=== PATIENT | male | born 1945 | race Caucasian/White ===

== ENCOUNTER 2017-09-02 12:59 | Day surgery (SDC) | payer MEDICARE, OTHER ==
[~2017-09-02 12:59] MED LIST: ASPI81TA82 PO; CAPT100T PO; CIPR1TAB50 PO; CLIN150 PO; CLON0.2T PO; CORE25TA PO; FURO1TAB93 PO; HYDR10TA16 PO; LEXA20TA PO; NEUR800T PO; NOVO7030P2 SQ; NOVO70IN2 SC; ZOCO10TA PO
[2017-09-02 13:29] VITALS: BP 106/46; PULSE 77; RESP 18; TEMP 98.1; O2SAT 93
[2017-09-02] MEDS ORDERED: APIX5TAB PO (13:50)
[2017-09-02] MEDS ORDERED: GABA600T PO (13:50)
[2017-09-02] MEDS ORDERED: FURO1TAB60 PO (13:50)
[2017-09-02] MEDS ORDERED: HYDR-3583 PO (13:50)
[2017-09-02] MEDS ORDERED: MORP1TAB24 PO (13:50)
[2017-09-02] MEDS ORDERED: SODIUM CHLORIDE 0.9% FLUSH 10 ML FLUSH IVF PRN ×2 (15:00)
--- NOTE | 2017-09-02 15:02 | PD.RAD ---
Radiology Post PICC Prog Note Pre Procedure Diagnosis: (1) UTI (urinary tract infection) Post Procedure Diagnosis: (1) UTI (urinary tract infection) Procedure: Right PICC line placement Procedure Date: Sep 02, 2017 Supervising Radiologist David Hoskins JR Proceduralist/Assist: Johnny Choi, RT(R), Don Hussein, RT(R) Device Side: Right [place]: 4 single lumen cm: 50 Catheter: Power PICC Plan of Activity Patient to Unit: [facility] Patient Condition: Good PICC line can be used immediately Jr. Hoskins Thomas Justin MD Sep 02, 2017 15:02
[2017-09-02] MEDS ORDERED: CEFEPIME 2000 MG/NS 100 ML IV ONE ×2 (15:30)
--- NOTE | 2017-09-02 16:05 | RADRPT ---
EXAM DATE: 09/02/2017 3:28 PM EDT AGE/SEX: 72 years / Male INDICATIONS: Patient presents with chronic urinary track infection in need of peripheral intravenous line placement for antibiotic administration. CLINICAL DATA: This is the patient's initial encounter. Patient reports that signs and symptoms have been present for 1 month and indicates a pain score of 9/10. MEDICAL/SURGICAL HISTORY: . Morbid obesityHTNCataractsDMFoot ulcerSleep apneaAnxietyAfibCarotid artery stenosisTIAPVDCKDMRSA HX . Bilateral foot surgeryTonsillectomyCardiac catheterizationSkin gr aft COMPARISON: No prior exams available for comparison. FLUORO TIME (min): 1.83 IMAGE SERIES: 3 ACCESS SITE: Right basilic vein DEVICE(S): 4 Wolof single lumen 50 cm . . PROCEDURE : 1. Ultrasound guidance for venous catheterization. 2. Fluoroscopic guidance. 3. Ultrasound & fluoroscopic guided central venous Power PICC line placement. The risks, benefits and alternatives to the procedure were explained and verbal and written consent w as obtained. The site was prepped in sterile fashion. Full sterile technique was used, including ca p, mask, sterile gloves and gown and a large sterile sheet. Hand hygiene and 2% chlorhexidine prep w as utilized per protocol for cutaneous antisepsis with appropriate dry time for site. Sterile gel a nd sterile probe cover were utilized for ultrasound guidance. The skin and subcutaneous tissues wer e infiltrated with local anesthetic solution. Under direct ultrasound guidance, a suitable vein was accessed and a measuring guidewire was introduc ed and positioned in the central venous system. The ultrasound images depicting access guidance were saved and stored to PACS for permanent record. A Power Injectable PICC line was cut to prescribed length and introduced, positioned with tip at the cavoatrial junction level. The line was flushed and secured per protocol. CONCLUSION: 1. Uncomplicated central venous Power PICC line placement. 2. The PICC line can be used immediately. Electronically signed by: David Hoskins MD 09/02/2017 4:03 PM EDT
[2017-09-03] MEDS ORDERED: SODIUM CHLORIDE 0.9% FLUSH 10 ML FLUSH IVF SCH (09:00)
== END 2017-09-02 15:45 | disposition home or self-care (01) ==
LOC: HROP 12:59 → HRIP 13:00 → HROP 15:45
PROVIDERS: ATTEND Family Medicine
DX: N39.0 Urinary tract infection, site not specified (principal); I48.91 Unspecified atrial fibrillation; G45.9 Transient cerebral ischemic attack, unspecified; I12.9 Hypertensive chronic kidney disease with stage 1 through stage 4 chronic kidney disease, or unspecified chronic kidney disease; E11.22 Type 2 diabetes mellitus with diabetic chronic kidney disease; N18.9 Chronic kidney disease, unspecified; G47.30 Sleep apnea, unspecified; E66.01 Morbid (severe) obesity due to excess calories; F41.9 Anxiety disorder, unspecified; L97.509 Non-pressure chronic ulcer of other part of unspecified foot with unspecified severity; I73.9 Peripheral vascular disease, unspecified; E78.5 Hyperlipidemia, unspecified; H40.9 Unspecified glaucoma; Z86.14 Personal history of Methicillin resistant Staphylococcus aureus infection
CPT/HCPCS: 36569; 76937; 77001; 96365; C1751; J0692

== ENCOUNTER 2018-02-26 10:36 | Inpatient (IN) ==
[~2018-02-26 10:36] MED LIST changes: -ASPI81TA82 PO; +Atropine Inj 1 MG/10 ML Syringe IV.PUSH ONE; -CAPT100T PO; -CIPR1TAB50 PO; -CLIN150 PO; -CLON0.2T PO; -CORE25TA PO; -FURO1TAB93 PO; -HYDR10TA16 PO; -LEXA20TA PO; -NEUR800T PO; -NOVO7030P2 SQ; -NOVO70IN2 SC; +Norepinephrine Inj 4 MG/4 ML Ampul IV.CONT ONE; +Sodium Bicarbonate 8.4% Inj 50 MEQ/50 ML Syringe IV.CONT ONE; -ZOCO10TA PO
--- NOTE | 2018-02-26 10:39 | ED ---
HPI General Chief complaint: Altered Mental Status Stated complaint: Medical Time Seen by Provider: 02/26/18 10:38 History of Present Illness HPI narrative: Patient is a 72-year-old male presents emergency department from [facility] and rehab for altered mental status since yesterday. EMS was called and found the patient have initial heart rate in the 30s with a blood pressure 120/60 manually, they give a half a milligram of atropine which brought his heart rate into the 40s and his blood pressure 96/72. His initial GCS on scene was 12, according to EMS the fpc reported that normally he is conversant and able to answer questions appropriately. Vision altered mental status on arrival, he does arouse and complaint of pain and we tried to lift his pain is for central line. He is unable to provide any of his other history. arrives and states that the patient has had a gradual decline in health, after lengthy discussion of his current condition she wishes him to remain Full code. Related Data Home Medications Medication Instructions Recorded Confirmed Lactobacillus acidophilus 1 tab PO BID 02/26/18 02/26/18 [Acidophilus] alfuzosin 10 mg PO DAILY 02/26/18 02/26/18 amino acids-protein hydrolys 30 ml PO DAILY 02/26/18 02/26/18 [Pro-Stat Sugar Free] amiodarone 200 mg PO DAILY 02/26/18 02/26/18 amlodipine 5 mg PO DAILY 02/26/18 02/26/18 ascorbic acid (vitamin C) [Vitamin 500 mg PO BID 02/26/18 02/26/18 C] atorvastatin 20 mg PO HS 02/26/18 02/26/18 bisacodyl [Dulcolax (bisacodyl)] 10 mg NJ DAILY PRN 02/26/18 02/26/18 duloxetine [Cymbalta] 20 mg PO DAILY 02/26/18 02/26/18 furosemide [Lasix] 20 mg PO BID 02/26/18 02/26/18 gabapentin 600 mg PO TID 02/26/18 02/26/18 insulin lispro [Humalog U-100 2 - 10 unit SUBCUT ACHS 02/26/18 02/26/18 Insulin] levothyroxine 50 mcg PO DAILY 02/26/18 02/26/18 magnesium hydroxide [Milk of 30 ml PO DIRECTED PRN 02/26/18 02/26/18 Magnesia] memantine [Namenda] 5 mg PO QPM 02/26/18 02/26/18 metoprolol tartrate 25 mg PO BID 02/26/18 02/26/18 morphine [MS Contin] 15 mg PO Q12H 02/26/18 02/26/18 multivitamin [Tab-A-Lucille] 1 tab PO DAILY 02/26/18 02/26/18 olmesartan 20 mg PO DAILY 02/26/18 02/26/18 ondansetron HCl [Zofran] 4 mg PO Q8H PRN 02/26/18 02/26/18 ondansetron [Zofran ODT] 4 mg PO Q6H PRN 02/26/18 02/26/18 rivaroxaban [Xarelto] 20 mg PO QPM 02/26/18 02/26/18 sennosides-docusate sodium 2 tab PO BID PRN 02/26/18 02/26/18 sodium phosphates [Fleet Enema] 118 ml NJ DIRECTED PRN 02/26/18 02/26/18 zinc sulfate 220 mg PO DAILY 02/26/18 02/26/18 Allergies Allergy/AdvReac Type Severity Reaction Status Date / Time daptomycin Allergy Severe Unverified 11/02/16 23:29 Sulfa (Sulfonamide Allergy Mild RASH Unverified 11/02/16 23:29 Antibiotics) Review of Systems ROS Unobtainable ROS Unobtainable: unobtainable due to mental condition PMFSH Social History Social History Recent Travel in [place] within the Last 8 Weeks: No Recent Out of Country Travel within the Last 8 Weeks: No Exam Narrative Exam Narrative: GENERAL: Well-developed well-nourished, morbidly obese SKIN: Focused skin assessment warm/dry. HEAD: Atraumatic. Normocephalic. EYES: Pupils equal and round. No scleral icterus. No injection or drainage. ENT: No nasal bleeding or discharge. Mucous membranes pink and moist. NECK: Trachea midline. No JVD. CARDIOVASCULAR: Regular rate and rhythm. No murmur appreciated. RESPIRATORY: Clear to auscultation, patient has irregular respiratory pattern and clearly has obstructive sleep apnea as when his mental status is waxing and waning he does have some periods where he is attempting to breathe with no air movement is visible. With some physical stimuli he arouses and starts breathing again. GASTROINTESTINAL: Abdomen soft, non-tender, nondistended. Hepatic and splenic margins not palpable. MUSCULOSKELETAL: No obvious deformities. No clubbing. No cyanosis. 2+ pitting edema of bilateral lower extremities. NEUROLOGICAL: Awake and alert, confused mental response. GCS [id number]. Follows commands in all 4 extremities. Waxing and waning mental status in the emergency department. PSYCHIATRIC: Appropriate mood and affect; insight and judgment normal. Procedures Arterial Line Time Out Performed: No Size (Gauge): 20 Technique Used: guide wire technique Post-Procedure: line sutured into place Patient Tolerated Procedure: well Complications: none Site: right and femoral Central Line Placement Right Femoral: Time Out Performed: No MD Prep: mask and gloves Central Line Prep: Chlorhexidine scrub Ultrasound Used for Placement: Yes Central Line Lumen Inserted: triple Post Procedure: sutured in place Patient Tolerated Procedure: well Complications: none Additional Comments: Patient was prepped hastily as the patient required emergent access and central blood pressure monitoring. Required significant pannus retraction by nursing. Course Initial Documented Vital Signs Temperature 98.4 F 02/26/18 10:41 Pulse Rate 39 L 02/26/18 10:41 Respiratory Rate 15 02/26/18 10:41 Blood Pressure 80/50 L 02/26/18 10:41 Pulse Oximetry 93 L 02/26/18 10:41 Last Documented Vital Signs Temperature 98.4 F 02/26/18 10:41 Pulse Rate 42 L 02/26/18 12:06 Respiratory Rate 16 02/26/18 12:06 Blood Pressure 89/45 L 02/26/18 12:06 Pulse Oximetry 97 02/26/18 12:06 Critical Care Time Critical Care Time: Yes Total Critical Care Time: 35 Attestation: Aggregate critical care time was 35 minutes. Time to perform other separately billable procedures was not included in the critical care time. My time did not include minutes spent treating any other patients simultaneously or on activities that did not directly contribute to the patient's treatment. The services I provided to this patient were to treat and/or prevent clinically significant deterioration that could result in: , disability, organ failure I provided critical care services requiring my management, as noted below: Chart data review, documentation time, medication orders and management, vital sign assessments/reviewing monitor data, ordering and reviewing lab tests, ordering and interpreting/reviewing x-rays and diagnostic studies, care of the patient and discussion of the patient with the admitting physicians. Medical Decision Making MDM Narrative Medical decision making narrative: Patient room to the emergency department, I have several EKGs on him prior to arrival, they all show bradycardia. He did receive 1/2 mg of atropine prior to arrival and his heart rate apparently went from the low 30s and 38. He was given another milligram of atropine on arrival as well as an amp of bicarb. My concern with 1 of these EKG shows a very wide complex bradycardia and I am concerned about the patient's potassium in light of his history of CKD. His last potassium was checked as an outpatient lab last month and was in excess of 5. He was given a calcium gluconate empirically 1 mg on arrival. VBG shows the patient acidosis with a pH of 7.2, this looks like the majority of her respiratory acidosis with some metabolic acidosis. Potassium is elevated to 7.0. Creatinine now 5.2 significant increase from his last creatinine as an outpatient. BUN of 70. Patient chest x-ray does not show any acute significant change from previous. Triple-lumen central line was started in the right femoral as well as an arterial line in the right femoral. Very difficult to obtain on invasive blood pressure on this patient. His initial blood pressures were in the 140s over 50s range. And therefore pacing was not started. During the course in the ER his blood pressure has started to decline and now map is in the 40s. He is started on levophed to maintain blood pressure and we will continue to monitor closely as the patient may need pacing. The atropine delivered in the emergency department really did not help his heart rate. After finding the patient's lab values additional calcium 2 g was ordered by central line, insulin, D50, albuterol by inhaler. His is at the bedside and I explained to the patient's kidneys are much weaker than they had been in the past as well as his liver enzymes being elevated as well. Given the 2 organs are failing him I have a high suspicion that the patient may also be septic. No obvious source of infection is yet been identified a CT scan of his abdomen pelvis has been ordered as well as a CT of his head and the patient's chronic indwelling Orozco will be changed out. Given the chronic indwelling Orozco is quite possible the patient does have urinary tract infection a gram of Rocephin was added as well. All the above was discussed with the patient's and discussed CODE STATUS and the patient is full code at this time. I explained to her that in the next 24-48 hours the patient has a high likelihood of being intubated and on medications to bring up his blood pressure. He is critically ill. Patient was discussed with Dr. Leal of nephrology who will see the patient in short order, the patient will also be admitted to ICU and was discussed with Dr. Hurst. Unclear as to whether the patient may have sepsis as a cause of his multiorgan failure he was given a dose of Rocephin is the probable cause of any sepsis from infection would likely be UTI. I have also asked nursing to exchange the Orozco catheter. He does have CT head and CT abdomen still pending. In the short-term after starting Levophed the patient had adequate response in both blood pressure and heart rate. Medical Screen Exam Complete: Yes Emergency Medical Condition: Yes Lab Data Result diagrams: 02/26/18 10:40 02/26/18 10:40 Lab Results 02/26/18 02/26/18 02/26/18 Range/Units 10:40 10:40 10:40 WBC 8.8 (4.0-11.0) th/mm3 RBC 3.17 L (4.50-5.90) mil/mm3 Hgb 9.0 L (13.0-17.0) gm/dL Hct 27.5 L (39.0-51.0) % MCV 86.8 (80.0-100.0) fL MCH 28.4 (27.0-34.0) pg MCHC 32.7 (32.0-36.0) % RDW 15.6 (11.6-17.2) % Plt Count 208 (150-450) th/mm3 MPV 8.5 (7.0-11.0) fL Neut % (Auto) 80.2 H (16.0-70.0) % Lymph % (Auto) 8.9 L (9.0-44.0) % [place]arnett % (Auto) 8.3 H (0.0-8.0) % Eos % (Auto) 2.0 (0.0-4.0) % Baso % (Auto) 0.6 (0.0-2.0) % Neut # (Auto) 7.0 (1.8-7.7) th/mm3 Lymph # (Auto) 0.8 L (1.0-4.8) th/mm3 [place]arnett # (Auto) 0.7 (0.0-0.9) th/mm3 Eos # (Auto) 0.2 (0.0-0.4) th/mm3 Baso # (Auto) 0.1 (0.0-0.2) th/mm3 WBC Differential . Differential Comment Auto diff final PT 14.4 H (9.8-11.6) sec INR 1.4 Ratio APTT 37.4 H (23.4-31.7) sec Puncture Site Patient Temperature VBG pH (7.360-7.400) VBG pCO2 (44-48) mmHG VBG pO2 (35-40) mmHG VBG HCO3 (22-26) mmol/L VBG O2 Saturation (70-76) % VBG O2 Content (9.0-17.0) Vol % VBG Base Excess (-2-2) mmol/L VBG Carboxyhemoglobin (0-4) % VBG Methemoglobin (0-2) % Hemoglobin (12.0-16.0) G/DL O2 Delivery Device Vent Setting Critical Value Sodium (136-145) meq/L Potassium (3.5-5.1) meq/L Chloride (98-107) meq/L Carbon Dioxide (21.0-32.0) meq/L Anion Gap (5-15) meq/L BUN (7-18) mg/dL Creatinine (0.60-1.30) mg/dL Estimated GFR (>89) mL/min Random Glucose (74-106) mg/dL Lactic Acid 1.1 (0.4-2.0) mmol/L Calcium (8.5-10.1) mg/dL Magnesium (1.5-2.5) mg/dL Total Bilirubin (0.2-1.0) mg/dL AST (15-37) U/L ALT (12-78) U/L Alkaline Phosphatase (45-117) U/L Ammonia (11-32) mcmol/L Troponin I (0.02-0.05) ng/mL Total Protein (6.4-8.2) g/dL Albumin (3.4-5.0) g/dL TSH (0.358-3.740) uIU/mL 02/26/18 02/26/18 02/26/18 Range/Units 10:40 10:40 10:48 WBC (4.0-11.0) th/mm3 RBC (4.50-5.90) mil/mm3 Hgb (13.0-17.0) gm/dL Hct (39.0-51.0) % MCV (80.0-100.0) fL MCH (27.0-34.0) pg MCHC (32.0-36.0) % RDW (11.6-17.2) % Plt Count (150-450) th/mm3 MPV (7.0-11.0) fL Neut % (Auto) (16.0-70.0) % Lymph % (Auto) (9.0-44.0) % [place]ett % (Auto) (0.0-8.0) % Eos % (Auto) (0.0-4.0) % Baso % (Auto) (0.0-2.0) % Neut # (Auto) (1.8-7.7) th/mm3 Lymph # (Auto) (1.0-4.8) th/mm3 [place]ett # (Auto) (0.0-0.9) th/mm3 Eos # (Auto) (0.0-0.4) th/mm3 Baso # (Auto) (0.0-0.2) th/mm3 WBC Differential Differential Comment PT (9.8-11.6) sec INR Ratio APTT (23.4-31.7) sec Puncture Site Peripheral line Patient Temperature 98.6 VBG pH 7.23 L* (7.360-7.400) VBG pCO2 55 H (44-48) mmHG VBG pO2 41 H (35-40) mmHG VBG HCO3 22 (22-26) mmol/L VBG O2 Saturation 64 L (70-76) % VBG O2 Content 8.0 L (9.0-17.0) Vol % VBG Base Excess -4.2 L (-2-2) mmol/L VBG Carboxyhemoglobin 1.4 (0-4) % VBG Methemoglobin 0.5 (0-2) % Hemoglobin 8.8 L (12.0-16.0) G/DL O2 Delivery Device Nasal cannula Vent Setting 3 Critical Value Yes Sodium 128 L (136-145) meq/L Potassium 7.0 H* (3.5-5.1) meq/L Chloride 95 L (98-107) meq/L Carbon Dioxide 22.6 (21.0-32.0) meq/L Anion Gap 10 (5-15) meq/L BUN 70 H (7-18) mg/dL Creatinine 5.32 H (0.60-1.30) mg/dL Estimated GFR 11 L (>89) mL/min Random Glucose 137 H (74-106) mg/dL Lactic Acid (0.4-2.0) mmol/L Calcium 7.6 L (8.5-10.1) mg/dL Magnesium 2.3 (1.5-2.5) mg/dL Total Bilirubin 0.8 (0.2-1.0) mg/dL AST 437 H (15-37) U/L ALT 277 H (12-78) U/L Alkaline Phosphatase 451 H (45-117) U/L Ammonia 20 (11-32) mcmol/L Troponin I Less than 0.02 L (0.02-0.05) ng/mL Total Protein 6.7 (6.4-8.2) g/dL Albumin 2.8 L (3.4-5.0) g/dL TSH 5.020 H (0.358-3.740) uIU/mL Imaging Data Radiologist's impression: Chest X-Ray 02/26/18 10:40 CONCLUSION: Diffuse density throughout the right lung which may represent a pleural effusion with underlying airspace disease. Moderate cardiomegaly Advanced arthropathy of the shoulder joints. Discharge Plan Discharge Disposition Patient Disposition: ED Admit(ED Internal Use Only) Discharge Condition Condition: Critical Discharge Order Discharge Orders: ED Use Only Admit Order (Routine); Ordered 02/26/18 Ordered By: Obinna Last Discharge Details Diagnosis: Acute hyperkalemia, Bradycardia, Acute hypotension, Shock Physicians Team ED Provider: Obinna Last Primary Care Provider: Liang Esparza Attending Provider: Casey Hurst Other Providers: Raeann Leal Discharge Interventions Interventions: Vital Signs Last Done: 02/26/18 12:06 Status ED Status: Admitted Patient
[2018-02-26] MEDS ORDERED: Atropine Inj 1 MG/10 ML Syringe IV.PUSH ONE ×2 (10:54→15:03)
[2018-02-26 10:58] LABS: VBG Base Excess -4.2 mmol/L (-2-2); VBG PCO2 55 mmHG (44-48); VBG PH 7.23 (7.360-7.400); VBG PO2 41 mmHG (35-40)
[2018-02-26 11:05] LABS: Baso # (Auto) 0.1 th/mm3 (0.0-0.2); Baso % (Auto) 0.6 % (0.0-2.0); Eos # (Auto) 0.2 th/mm3 (0.0-0.4); Hematocrit 27.5 % (39.0-51.0); Lymph # (Auto) 0.8 th/mm3 (1.0-4.8); Lymph % (Auto) 8.9 % (9.0-44.0); Mean Corpuscular HGB Conc 32.7 % (32.0-36.0); Mean Corpuscular Hemoglobin 28.4 pg (27.0-34.0); Mean Corpuscular Volume 86.8 fL (80.0-100.0); Mean Platelet Volume 8.5 fL (7.0-11.0); Mono # (Auto) 0.7 th/mm3 (0.0-0.9); Mono % (Auto) 8.3 % (0.0-8.0); Neut % (Auto) 80.2 % (16.0-70.0); Platelet Count 208 th/mm3 (150-450); Red Blood Count 3.17 mil/mm3 (4.50-5.90); Red Cell Distribution Width 15.6 % (11.6-17.2); White Blood Count 8.8 th/mm3 (4.0-11.0)
[2018-02-26 11:13] LABS: Activated Partial Thrombo Time 37.4 sec (23.4-31.7); INR 1.4 Ratio; Prothrombin Time 14.4 sec (9.8-11.6)
[2018-02-26 11:40] LABS: Alanine Aminotransferase 277 U/L (12-78); Albumin 2.8 g/dL (3.4-5.0); Alkaline Phosphatase 451 U/L (45-117); Anion Gap 10 meq/L (5-15); Aspartate Aminotransferase 437 U/L (15-37); Blood Urea Nitrogen 70 mg/dL (7-18); Calcium 7.6 mg/dL (8.5-10.1); Carbon Dioxide 22.6 meq/L (21.0-32.0); Chloride 95 meq/L (98-107); Glomerular Filtration Rate 11 mL/min (>89); Glucose,Random 137 mg/dL (74-106); Magnesium 2.3 mg/dL (1.5-2.5); Sodium 128 meq/L (136-145); Total Protein 6.7 g/dL (6.4-8.2)
[2018-02-26] MEDS ORDERED: Calcium Chloride Inj 1 GM/10 ML Syringe IV.PUSH ONE (12:00)
--- NOTE | 2018-02-26 12:23 | XR ---
EXAM DATE: 02/26/2018 11:55 AM EST AGE/SEX: 72 years / Male INDICATIONS: Shortness of breath. CLINICAL DATA: This is the patient's initial encounter. Patient reports that signs and symptoms have been present for 1 day and indicates a pain score of Nonresponsive. MEDICAL/SURGICAL HISTORY: . Atrial fibrillation. Carotid artery stenosis. . Cardiac catheteri zation. COMPARISON: POI, XR CHEST PA AND LAT, 10/18/2014. . FINDINGS: Significant increased density has developed throughout the right hemithorax. The left lung is hypoaer ated but otherwise free of significant congestion or infiltrate. Heart is moderately enlarged. Significant arthropathy is seen in both shoulder joints. CONCLUSION: Diffuse density throughout the right lung which may represent a pleural effusion with underlying airs pace disease. Moderate cardiomegaly Advanced arthropathy of the shoulder joints. Electronically signed by: Logan Fuentes MD 02/26/2018 12:21 PM EST
[2018-02-26] MEDS ORDERED: Morphine Sulfate Inj 2 MG/ML Vial IV.PUSH PRN (12:37)
[2018-02-26] MEDS ORDERED: Bisacodyl 10 MG Supp RECTAL PRN (12:37)
[2018-02-26] MEDS ORDERED: Acetaminophen 325 MG Tablet PO PRN ×2 (12:37→16:31)
--- NOTE | 2018-02-26 12:44 | P.HPCC ---
History of Present Illness Service: Critical care medicine Primary Care Physician: Liang Esparza MD Chief Complaint: Acute encephalopathy, acute kidney injury with hyperkalemia History of Present Illness: This is a 72-year-old male. Admission 02/26/2018. Past medical includes morbid obesity, depression, dementia, coronary artery disease, hypertension, hyperlipidemia, diabetes mellitus, atrial fibrillation currently rate controlled, hypothyroidism, peripheral neuropathy, chronic kidney disease stage III-IV, chronic opiate use and chronic anticoagulation with rivaroxaban. Patient is from the [facility] rehab [facility]. He was originally sent to [facility] emergency department the chief diagnosis of acute altered mental status since yesterday. EMS was called and found the patient have initial heart rate in the 30s with a blood pressure 120/60 manually, they give a half a milligram of atropine which brought his heart rate into the 40s and his blood pressure 96/72. His initial GCS on scene was 12, according to EMS [facility] that normally he is conversant and able to answer questions appropriately. Upon arrival, a central line and arterial line replaced in the right femoral vein/artery is appropriate and received 1 L normal saline. Currently on norepinephrine drip for mean arterial pressure greater than 65. Patient had normal white blood cell count. Potassium 7 with peaked T waves. Patient received D50, insulin and calcium chloride. Nephrology was consulted and recommended hemodialysis. Patient has scans of the brain, chest, abdomen pelvis pain-free chest x-ray revealed possible right pleural effusion versus infiltrate with aspiration. Patient still quite confused however is arousable and will follow commands. - Diagnosis (1) Depression (2) Obstructive sleep apnea (3) BMI 50.0-59.9, adult (4) 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 (5) Coronary artery disease (6) History of essential hypertension (7) Hyperlipidemia (8) Peripheral neuropathy (9) Atrial fibrillation (10) Chronic narcotic use (11) BPH (benign prostatic hyperplasia) (12) Hyponatremia (13) Normocytic anemia (14) Acute hyperkalemia (15) Acute hypotension (16) Shock (17) Elevated transaminase level (18) Elevated TSH (19) Elevated alkaline phosphatase level (20) Hypoalbuminemia (21) Bradycardia Inpatient Certification: I certify that the inpatient services were ordered in accordance with Medicare regulations governing the order. This includes certification that hospital inpatient services are reasonable and necessary and in the case of services not specified as inpatient-only under 42 CFR 419.22(n), that they are appropriately provided as inpatient services in accordance to with the 2-midnight benchmark under 43 CFR 412.3(e) Estimated Total Length of Stay (Days): 5 Plans for Post Hospital Care: Not yet determined Review of Systems unobtainable due to mental condition PMFSH - History History Provided By: Patient - Surgical History Surgical History: Surgical History (Last Updated 02/26/18 @ 12:47 by Casey Hurst MD) History of cardiac catheterization History of tonsillectomy and adenoidectomy Status post left foot surgery - Family History Family History: Family History (Last Updated 02/26/18 @ 12:48 by Casey Hurst MD) Other Family history of coronary artery disease Family history of stroke - Social History I have reviewed the patient's Social History: Yes - Tobacco History Second Hand Smoke Exposure: No Tobacco Use In Past 30 Days: No Smoking Status: Never smoker - Alcohol History How Often Do You Have a Drink Containing Alcohol: Never - Substance Use History Substance History: No History of Abuse - Travel History Recent Travel in the [place] Within the Last 8 Weeks: No Recent Travel Out of the Country Within the Last 8 Weeks: No Medications and Allergies Active Medications: Active Medications Acetaminophen (Tylenol) 650 mg PO Q6H PRN PRN Reason: FEVER Al Hydroxide/Mg Hydroxide (Milk Of Freda Lisamira) 30 ml PO Q12H PRN PRN Reason: Mild Constipation Albuterol (Albuterol Neb (Zak)) 2.5 mg NEB Q2HR NEB PRN PRN Reason: SHORTNESS OF BREATH/WHEEZING Albuterol (Duoneb Neb (Prn)) 1 ampul NEB Q4HR NEB ZAK Ascorbic Acid (Vitamin C) 500 mg PO BID [facility] Bisacodyl (Dulcolax Supp) 10 mg RECTAL DAILY PRN PRN Reason: SEVERE CONSITIPATION Chlorhexidine Gluconate (Chlorhexidine 2% Cloth) 3 pack TOPICAL DAILY@0400 ZAK Stop: 03/04/18 03:59 Chlorhexidine Gluconate (Chlorhexidine 2% Cloth) 3 pack TOPICAL DAILY@0400 PRN PRN Reason: Extra cloth needed Stop: 03/04/18 03:59 Duloxetine HCl (Cymbalta) 20 mg PO DAILY [facility] Norepinephrine Bitartrate (Levophed-Dextrose 4 Mg/250 Ml Drip) 4 mg in 250 mls @ 7.5 mls/hr IV.SIG TITRATE PRN; Protocol PRN Reason: Per Protocol Last Titration: 02/26/18 12:36 Dose: 6 mcg/min, 22.5 mls/hr Sodium Chloride (Ns Inj) 1,000 mls @ 84 mls/hr IV.CONT .[id number] [facility] Lactulose (Lactulose Liq) 30 ml PO DAILY PRN PRN Reason: SEVERE CONSITIPATION Levothyroxine Sodium (Synthroid) 50 mcg PO DAILY ZAK Memantine (Namenda) 5 mg PO QPM ZAK Morphine Sulfate (Morphine Inj) 2 mg IV.PUSH Q2H PRN PRN Reason: PAIN SCALE 6 TO 10 Non-Formulary Medication (Zinc Sulfate [Zinc Sulfate]) 220 mg PO DAILY [facility] Non-Formulary Medication (Multivitamin [Tab-A-Lucille]) 1 tab PO DAILY [facility] Ondansetron HCl (Zofran Inj) 4 mg IV.PUSH Q6H PRN PRN Reason: NAUSEA OR VOMITING Oxycodone/Acetaminophen (Percocet 5/325 Mg) 1 tab PO Q4H PRN PRN Reason: PAIN SCALE 1 TO 5 Pantoprazole Sodium (Protonix Inj) 40 mg IV.PUSH DAILY [facility] Senna/Docusate Sodium (Kim-Colace) 1 tab PO BID [facility] Sennosides (Senokot) 17.2 mg PO Q12H PRN PRN Reason: Moderate Constipation Sodium Chloride (Ns Flush) 2 ml IV.FLUSH PRN PRN PRN Reason: FLUSH AFTER USING IV ACCESS Sodium Chloride (Ns Flush) 2 ml IV.FLUSH BID [facility] Sodium Chloride (Ns Flush) 2 ml IV.FLUSH PRN PRN PRN Reason: FLUSH AFTER USING IV ACCESS Terbutaline Sulfate (Brethine Inj) 1 mg SQ UNSCH PRN PRN Reason: For Extravasation Allergies Allergy/AdvReac Type Severity Reaction Status Date / Time daptomycin Allergy Severe Unverified 11/02/16 23:29 Sulfa (Sulfonamide Allergy Mild RASH Unverified 11/02/16 23:29 Antibiotics) Home Medications Medication Instructions Recorded Confirmed Type Lactobacillus acidophilus 1 tab PO BID 02/26/18 02/26/18 History [Acidophilus] alfuzosin 10 mg PO DAILY 02/26/18 02/26/18 History amino acids-protein hydrolys 30 ml PO DAILY 02/26/18 02/26/18 History [Pro-Stat Sugar Free] amiodarone 200 mg PO DAILY 02/26/18 02/26/18 History amlodipine 5 mg PO DAILY 02/26/18 02/26/18 History ascorbic acid (vitamin C) [Vitamin 500 mg PO BID 02/26/18 02/26/18 History C] atorvastatin 20 mg PO HS 02/26/18 02/26/18 History bisacodyl [Dulcolax (bisacodyl)] [address] DAILY PRN 02/26/18 02/26/18 History duloxetine [Cymbalta] 20 mg PO DAILY 02/26/18 02/26/18 History furosemide [Lasix] 20 mg PO BID 02/26/18 02/26/18 History gabapentin 600 mg PO TID 02/26/18 02/26/18 History insulin lispro [Humalog U-100 2 - 10 unit SUBCUT ACHS 02/26/18 02/26/18 History Insulin] levothyroxine 50 mcg PO DAILY 02/26/18 02/26/18 History magnesium hydroxide [Milk of 30 ml PO DIRECTED PRN 02/26/18 02/26/18 History Magnesia] memantine [Namenda] 5 mg PO QPM 02/26/18 02/26/18 History metoprolol tartrate 25 mg PO BID 02/26/18 02/26/18 History morphine [MS Contin] 15 mg PO Q12H 02/26/18 02/26/18 History multivitamin [Tab-A-Lucille] 1 tab PO DAILY 02/26/18 02/26/18 History olmesartan 20 mg PO DAILY 02/26/18 02/26/18 History ondansetron HCl [Zofran] 4 mg PO Q8H PRN 02/26/18 02/26/18 History ondansetron [Zofran ODT] 4 mg PO Q6H PRN 02/26/18 02/26/18 History rivaroxaban [Xarelto] 20 mg PO QPM 02/26/18 02/26/18 History sennosides-docusate sodium 2 tab PO BID PRN 02/26/18 02/26/18 History sodium phosphates [Fleet Enema] [address] DIRECTED PRN 02/26/18 02/26/18 History zinc sulfate 220 mg PO DAILY 02/26/18 02/26/18 History Results - Labs CBC & Chem 7: 02/26/18 10:40 02/26/18 10:40 Labs: Short CBC 02/26/18 Range/Units 10:40 WBC 8.8 (4.0-11.0) th/mm3 Hgb 9.0 L (13.0-17.0) gm/dL Hct 27.5 L (39.0-51.0) % Plt Count 208 (150-450) th/mm3 BMP 02/26/18 10:40 Sodium 128 L Potassium 7.0 H* Chloride 95 L Carbon Dioxide 22.6 BUN 70 H Creatinine 5.32 H Calcium 7.6 L Cardiac Enzymes 02/26/18 Range/Units 10:40 Troponin I Less than 0.02 L (0.02-0.05) ng/mL Liver Function 02/26/18 Range/Units 10:40 Total Bilirubin 0.8 (0.2-1.0) mg/dL AST 437 H (15-37) U/L ALT 277 H (12-78) U/L Alkaline Phosphatase 451 H (45-117) U/L Albumin 2.8 L (3.4-5.0) g/dL - Imaging Impressions Chest X-Ray 02/26/18 10:40 CONCLUSION: Diffuse density throughout the right lung which may represent a pleural effusion with underlying airspace disease. Moderate cardiomegaly Advanced arthropathy of the shoulder joints. Exam Vital signs: Vital Signs 02/26/18 10:41 02/26/18 11:02 02/26/18 12:06 Temperature 98.4 F Pulse Rate 39 L 35 L 42 L Respiratory Rate 15 16 Blood Pressure 80/50 L 89/45 L Pulse Oximetry 93 L 97 Intake & Output 02/25/18 02/26/18 02/26/18 18:59 06:59 18:59 Weight 172.365 kg Septic Shock Reassessment Septic shock perfusion: reassessment completed Caprini VTE Risk Assessment Caprini VTE Risk Assessment: Moderate/High Risk (score >= 2) Caprini Risk Assessment Model: Point Value = 1 Point Value = 2 Point Value = 3 Point Value = 5 Age 41-60 Minor surgery BMI > 25 kg/m2 Swollen legs Varicose veins or History of unexplained or recurrent spontaneous Oral contraceptives or hormone replacement Sepsis (< 1 month) Serious lung disease, including pneumonia (< 1 month) Abnormal pulmonary function Acute myocardial infarction Congestive heart failure (< 1 month) History of inflammatory bowel disease Medical patient at bed rest Age 61-74 Arthroscopic surgery Major open surgery (> 45 min) Laparoscopic surgery (> 45 min) Malignancy Confined to bed (> 72 hours) Immobilizing plaster cast Central venous access Age >= 75 History of VTE Family history of VTE Factor V Leiden Prothrombin [id number] Lupus anticoagulant Anticardiolipin antibodies Elevated serum homocysteine Heparin-induced thrombocytopenia Other congenital or acquired thrombophilia Stroke (< 1 month) Elective arthroplasty Hip, pelvis, or leg fracture Acute spinal cord injury (< 1 month) Prophylaxis Regimen: Total Risk Factor Score Risk Level Prophylaxis Regimen 0-1 Low Early ambulation 2 Moderate Order ONE of the following: *Sequential Compression Device (SCD) *Heparin 5000 units SQ BID 3-4 Higher Order ONE of the following medications: *Heparin 5000 units SQ TID *Enoxaparin/Lovenox 40 mg SQ daily (WT < 150 kg, CrCl > 30 mL/min) *Enoxaparin/Lovenox 30 mg SQ daily (WT < 150 kg, CrCl > 10-29 mL/min) *Enoxaparin/Lovenox 30 mg SQ BID (WT < 150 kg, CrCl > 30 mL/min) AND/OR *Sequential Compression Device (SCD) 5 or more Highest Order ONE of the following medications: *Heparin 5000 units SQ TID (Preferred with Epidurals) *Enoxaparin/Lovenox 40 mg SQ daily (WT < 150 kg, CrCl > 30 mL/min) *Enoxaparin/Lovenox 30 mg SQ daily (WT < 150 kg, CrCl > 10-29 mL/min) *Enoxaparin/Lovenox 30 mg SQ BID (WT < 150 kg, CrCl > 30 mL/min) AND *Sequential Compression Device (SCD) Assessment and Plan - Problem List (1) Depression Code(s): F32.9 - Major depressive disorder, single episode, unspecified Status : Chronic (2) Obstructive sleep apnea Code(s): G47.33 - Obstructive sleep apnea (adult) (pediatric) Status: Chronic (3) BMI 50.0-59.9, adult Code(s): Z68.43 - Body mass index (BMI) 50-59.9, adult Status: Chronic (4) 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 Code(s): E11.9 - Type 2 diabetes mellitus without complications Status: Chronic (5) Coronary artery disease Code(s): I25.10 - Atherosclerotic heart disease of [place] coronary artery without angina pectoris Status: Chronic (6) History of essential hypertension Code(s): Z86.79 - Personal history of other diseases of the circulatory system Status: Chronic (7) Hyperlipidemia Code(s): E78.5 - Hyperlipidemia, unspecified Status: Chronic (8) Peripheral neuropathy Code(s): G62.9 - Polyneuropathy, unspecified Status: Chronic (9) Atrial fibrillation Code(s): I48.91 - Unspecified atrial fibrillation Status: Chronic (10) Chronic narcotic use Code(s): F11.90 - Opioid use, unspecified, uncomplicated Status: Chronic (11) BPH (benign prostatic hyperplasia) Code(s): N40.0 - Benign prostatic hyperplasia without lower urinary tract symptoms Status: Chronic (12) Hyponatremia Code(s): E87.1 - Hypo-osmolality and hyponatremia Status: Acute (13) Normocytic anemia Code(s): D64.9 - Anemia, unspecified Status: Acute (14) Acute hyperkalemia Code(s): E87.5 - Hyperkalemia Status: Acute (15) Acute hypotension Code(s): I95.9 - Hypotension, unspecified Status: Acute (16) Shock Code(s): R57.9 - Shock, unspecified Status: Acute (17) Elevated transaminase level Code(s): R74.0 - Nonspecific elevation of levels of transaminase and lactic acid dehydrogenase [LDH] Status: Acute (18) Elevated TSH Code(s): R79.89 - Other specified abnormal findings of blood chemistry Status : Acute (19) Elevated alkaline phosphatase level Code(s): R74.8 - Abnormal levels of other serum enzymes Status: Acute (20) Hypoalbuminemia Code(s): E88.09 - Other disorders of plasma-protein metabolism, not elsewhere classified Status: Acute (21) Bradycardia Code(s): R00.1 - Bradycardia, unspecified Status: Acute - Assessment and Plan Plan: Neuro/Psych: Acute toxic metabolic encephalopathy History of TIA Depression/anxiety Chronic peripheral neuropathy secondary to diabetes mellitus Dementia disorder NOS Holding gabapentin 600 mg 3 times daily for peripheral neuropathy. Resume clinically indicated Holding scheduled morphine 15 mg every 12 hours for chronic pain Holding duloxetine 20 mg daily for depression. Resume clinically indicated Resume memantine 5 mg at night for dementia Acetaminophen 650 mg every 6 hours as needed fever Hydrocodone/acetaminophen 5/21 tablet every 4 hours as needed pain 1 through 5 Morphine sulfate 2 mg IV every 2 hours as needed pain [address] brain currently pending. Ammonia level 20 CV: Sinus bradycardia Paroxysmal atrial fibrillation History of essential hypertension HyperLipidemia coronary artery disease Congestive heart failure unknown etiology Receive 0.5 mg atropine in route. Received 1 L normal saline crystalloid bolus. Currently norepinephrine drip to maintain mean artery pressure greater than equal 65 Received 2 L additional normal saline bolus x1 now Holding atorvastatin 20 mg a day for dyslipidemia. Resume clinically indicated Holding amiodarone 2 mg daily for atrial fibrillation with hyperkalemia. Resume clinically indicated. Holding amlodipine 5 mg daily metoprolol tartrate 20 mg twice daily for hypertension resume clinically indicated Holding olmesartan 20 mg daily with hyper kalemia and acute kidney injury. Initial troponin 0 0.02. Check 2D echocardiogram Serial troponins every 6 hours x2 Serial lactates until cleared Resp: History of obstructive sleep apnea Nasal cannula to maintain saturations greater than or equal to 92% Incentive spirometry while awake Albuterol/ipratropium aerosols every 4 hours with albuterol aerosols every 2 as needed dyspnea Will likely need CPAP tonight. GI: Elevated transaminases Elevated alkaline phosphatase Monitor transaminases. Check hepatitis panel and CPK N.p.o. status pantoprazole for GI prophylaxis DC sodium/senna 1 tablet twice daily for bowel regimen. Avoid hepatotoxic medications Follow-up on CT abdomen/pelvis : BPH Holding alfazosin 10 mg daily for BPH while hypotensive on vasopressors Maintain Orozco catheter Endo: 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 Hypothyroidism with elevated TSH On levothyroxine 50 mg daily. Continue Sliding scale insulin with Accu-Cheks to maintain euglycemia every 6 hours/ aspart insulin low regimen On sliding scale lispro insulin at home Renal: Acute kidney injury in the setting of chronic kidney disease stage IIIb Maintain Orozco catheter Monitor urine output Accurate I's and O's Check urine eosinophils, sodium and creatinine Will receive hemodialysis today per nephrology's request. Dr. Leal has been consulted Heme: Normocytic anemia Chronic rivaroxaban use Monitor CBC daily. Follow trends. No indication for transfusion of blood products at this time. Resume the lorazepam CT head, chest abdomen pelvis negative acute findings ID: Blood cultures x2, sputum and UA check Currently on vancomycin and piperacillin/tazobactam FEN: Acute hyperkalemia Hyponatremia Received D50/insulin/calcium in the ED. Received acute hemodialysis today which will correct the underlying electrolyte derangement Received 3 L crystalloid bolus x1 Recheck electro is post dialysis MSK: Elevated BMI greater than 50 Bilateral lower extremity heel ulcers Weight loss encouraged PT evaluate and Wound care evaluate and treat Access -Right femoral CVL and right femoral arterial CVL day 1 placed the ED by Prophylaxis -GI -pantoprazole -DVT -SCD/holding pharmacological prophylaxis pending CT brain Critical care time 35 minutes Procedures - Arterial Line Size (Gauge): 20 (1) Depression Qualifiers: Depression Type: major depressive disorder Major depression recurrence: recurrent Active/Remission status: remission status unspecified Qualified Code (s): F33.9 - Major depressive disorder, recurrent, unspecified (4) 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 Qualifiers: 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 type: type 2 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 transplanted heart: [place] heart Associated angina: without angina Qualified Code(s): I25.10 - Atherosclerotic heart disease of [place] coronary artery without angina pectoris (7) Hyperlipidemia Qualifiers: Hyperlipidemia type: unspecified Qualified Code(s): E78.5 - Hyperlipidemia, unspecified (8) Peripheral neuropathy Qualifiers: Peripheral neuropathy type: polyneuropathy, unspecified Qualified Code(s): G62.9 - Polyneuropathy, unspecified (9) Atrial fibrillation Qualifiers: Atrial fibrillation type: paroxysmal Qualified Code(s): I48.0 - Paroxysmal atrial fibrillation (11) BPH (benign prostatic hyperplasia) Qualifiers: Lower urinary tract symptom presence: unspecified whether lower urinary tract symptoms present Qualified Code(s): N40.0 - Benign prostatic hyperplasia without lower urinary tract symptoms
[2018-02-26] MEDS ORDERED: Vancomycin Consult Pharmacy OTHER PRN (12:51)
[2018-02-26] MEDS ORDERED: Sod Chloride 0.9% Inj 2,000 ML IV.SIG ONE (13:05)
[2018-02-26 13:34] LABS: Amorphous Sediment,Urine Moderate /hpf; Bacteria,Urine Occasional /hpf; Bilirubin,Urine Negative (Negative); Clarity,Urine Cloudy (Clear); Color,Urine Amber (Yellw/Straw); Glucose,Urine (UA) Negative (Negative); Hyaline Casts,Urine 137 /lpf (0-3); Leukocyte Esterase,Urine Large (Negative); Mucus,Urine Few /lpf (Occasional); Nitrite,Urine Negative (Negative); Renal Epithelial Cells,Urine 1 /hpf; Specific Gravity,Urine 1.015 (1.002-1.035); Squamous Epithelial Cell,Urine 4 /hpf (0-5)
--- NOTE | 2018-02-26 13:46 | CT ---
EXAM DATE: 02/26/2018 1:29 PM EST AGE/SEX: 72 years / Male INDICATIONS: Altered Mental Status CLINICAL DATA: This is the patient's initial encounter. Patient reports that signs and symptoms have been present for 1 day and indicates a pain score of 0/10. MEDICAL/SURGICAL HISTORY: Diabetes. Coronary artery disease, Atrial Fibrillation Tonsillectomy. Ca rdiac catheterization RADIATION DOSE: 56.35 CTDI (mGy) COMPARISON: No prior exams available for comparison. TECHNIQUE: CT of the head without contrast. Using automated exposure control and adjustment of the mA and/or kV according to patient size, radiation dose was kept as low as reasonably achievable to ob tain optimal diagnostic quality images. DICOM format image data is available electronically for revi ew and comparison. FINDINGS: Cerebrum: The ventricles are normal for age. The cortical sulci are mildly widened. No evidence of midline shift, mass lesion, hemorrhage or acute infarction. No extraaxial fluid collections are seen . Posterior Fossa: The cerebellum and brainstem are intact. The 4th ventricle is midline. The cerebe llopontine angle is unremarkable. Extracranial: The visualized portion of the orbits is intact. Skull: The calvaria is intact. No evidence of skull fracture. CONCLUSION: 1. No acute abnormality. 2. Mild cortical atrophy. . Electronically signed by: Andrea Cerrato MD 02/26/2018 1:44 PM EST
[2018-02-26] MEDS ORDERED: Propofol 1000 mg/100 ml Inj 1,000 MG/100 ML BOTTLE IV.CONT PRN (13:51)
[2018-02-26] MEDS ORDERED: fentaNYL 10 mcg/mL Premix Drip 2,500 MCG/250 ML BAG IV.SIG PRN (13:51)
--- NOTE | 2018-02-26 13:56 | CT ---
EXAM DATE: 02/26/2018 1:34 PM EST AGE/SEX: 72 years / Male INDICATIONS: Painful respiration CLINICAL DATA: This is the patient's initial encounter. Patient reports that signs and symptoms have been present for 1 day and indicates a pain score of 0/10. MEDICAL/SURGICAL HISTORY: Diabetes. Coronary Artery Disease, Atrial fibrillation Tonsillectomy. Ca rdiac catheterization RADIATION DOSE: 17.34 CTDI (mGy) ; Combined studies COMPARISON: POI, XR CHEST PA AND LAT, 10/18/2014. . TECHNIQUE: Multiple contiguous axial images were obtained through the chest without contrast. Image s were obtained in suspended respiration using multiple row detector helical technique. Using automa sushma exposure control and adjustment of the mA and/or kV according to patient size, radiation dose was kept as low as reasonably achievable to obtain optimal diagnostic quality images. DICOM format imag e data is available electronically for review and comparison. FINDINGS: Lungs: There is increased density seen throughout much of the right lower lung. There is mild increa sed density at the posterior left lower lobe. There is a calcified granuloma at the left base. Mediastinum: Significant adenopathy is not seen. Coronary artery calcification are present. Pleurae: There is a moderate right pleural effusion and a mild left pleural effusion. Axillae: Unremarkable. Bony Structures: There is degenerative change at the glenohumeral joints. There is a compression def ormity at the T4 vertebral body with loss of height and sclerosis of T4. There is degenerative change seen throughout the thoracic spine. Miscellaneous: The examination was extended to include the upper abdomen, and both adrenal glands ar e normal in size and configuration. The patient is to have a CT of the abdomen and pelvis to follow. There does appear to be increased edema peripheral soft tissues being most prominent at the lateral s oft tissues of the right chest. CONCLUSION: 1. Bilateral pleural effusions being moderate on the right and mild on the left. 2. Suspected right lower lobe atelectasis likely from the effusion versus consolidation. 3. Milder consolidation or atelectasis at the left base. 4. Compression deformity of the T4 vertebral body. 5. Edema in the soft tissues being asymmetric and worse on the right. Electronically signed by: Andrea Cerrato MD 02/26/2018 1:54 PM EST
--- NOTE | 2018-02-26 13:59 | P.CONNP ---
History of Present Illness Service: Nephrology Consult date: 02/26/18 Requesting Physician: Obinna Last Reason for Consult: Hyperkalemia with acute renal failure Primary Care Provider: Liang Esparza MD Chief Complaint: Acute encephalopathy, acute kidney injury with hyperkalemia History of Present Illness: Patient is a 72-year-old white male with a history of diabetes, chronic kidney disease, he was in altered mental status became very lethargic, found to have severe bradycardia heart rate in 30s, atropine was given and he arrived in emergency with altered mental status, potassium was 7 creatinine 5.3 Heart rate improved to 42 blood pressure was low, patient is transferred to intensive care unit Review of Systems unobtainable due to mental status PMFSH - History History Provided By: Medical Record - Medical History Medical History: Medical History (Last Reviewed 02/26/18 @ 13:51 by Raeann Leal MD) Acute kidney failure Clostridium difficile carrier Diarrhea - Surgical History Surgical History: Surgical History (Last Reviewed 02/26/18 @ 13:51 by Raeann Leal MD) History of cardiac catheterization History of tonsillectomy and adenoidectomy Status post left foot surgery - Family History Family History: Family History (Last Reviewed 02/26/18 @ 13:51 by Raeann Leal MD) Other Family history of coronary artery disease Family history of stroke - Social History I have reviewed the patient's Social History: Yes - Tobacco History Second Hand Smoke Exposure: No Tobacco Use In Past 30 Days: No Smoking Status: Never smoker - Alcohol History How Often Do You Have a Drink Containing Alcohol: Never - Substance Use History Substance History: No History of Abuse - Travel History Recent Travel in the [place] Within the Last 8 Weeks: No Recent Travel Out of the Country Within the Last 8 Weeks: No - Immunization History Tetanus Immunization: Unable to Assess Medications and Allergies Active Medications: Active Medications Acetaminophen (Tylenol) 650 mg PO Q6H PRN PRN Reason: FEVER Al Hydroxide/Mg Hydroxide (Milk Of Magnesia Liq) 30 ml PO Q12H PRN PRN Reason: Mild Constipation Albuterol (Albuterol Neb (Prn)) 2.5 mg NEB Q2HR NEB PRN PRN Reason: SHORTNESS OF BREATH/WHEEZING Albuterol (Duoneb Neb (Zak)) 1 ampul NEB Q4HR NEB ZAK Ascorbic Acid (Vitamin C) 500 mg PO BID ZAK Bisacodyl (Dulcolax Supp) 10 mg RECTAL DAILY PRN PRN Reason: SEVERE CONSITIPATION Chlorhexidine Gluconate (Chlorhexidine 2% Cloth) 3 pack TOPICAL DAILY@0400 ZAK Stop: 03/04/18 03:59 Chlorhexidine Gluconate (Chlorhexidine 2% Cloth) 3 pack TOPICAL DAILY@0400 PRN PRN Reason: Extra cloth needed Stop: 03/04/18 03:59 Duloxetine HCl (Cymbalta) 20 mg PO DAILY [facility] Norepinephrine Bitartrate (Levophed-Dextrose 4 Mg/250 Ml Drip) 4 mg in 250 mls @ 7.5 mls/hr IV.SIG TITRATE PRN; Protocol PRN Reason: Per Protocol Last Titration: 02/26/18 12:36 Dose: 6 mcg/min, 22.5 mls/hr Sodium Chloride (Ns Inj) 1,000 mls @ 84 mls/hr IV.CONT .[id number] [facility] Piperacillin/Tazobactam/Dextrose (Zosyn 2.25 Gm Premix) 50 mls @ 100 mls/hr IV.SIG Q8H ZAK Vancomycin HCl 1,750 mg/ (Sodium Chloride) 517.5 mls @ 250 mls/hr IV.SIG ONCE ONE Stop: 02/26/18 17:04 Lactulose (Lactulose Liq) 30 ml PO DAILY PRN PRN Reason: SEVERE CONSITIPATION Levothyroxine Sodium (Synthroid) 50 mcg PO DAILY@0600 [facility] Memantine (Namenda) 5 mg PO QPM [facility] Morphine Sulfate (Morphine Inj) 2 mg IV.PUSH Q2H PRN PRN Reason: PAIN SCALE 6 TO 10 Multivitamins (Theragran) 1 tab PO DAILY [facility] Nystatin (Mycostatin Powder) 1 applicatio TOPICAL BID [facility] Ondansetron HCl (Zofran Inj) 4 mg IV.PUSH Q6H PRN PRN Reason: NAUSEA OR VOMITING Oxycodone/Acetaminophen (Percocet 5/325 Mg) 1 tab PO Q4H PRN PRN Reason: PAIN SCALE 1 TO 5 Pantoprazole Sodium (Protonix Inj) 40 mg IV.PUSH DAILY [facility] Pharmacy Profile Note (Vancomycin Consult Pharmacy) 1 each OTHER UNSCH PRN PRN Reason: Pharmacy to dose Senna/Docusate Sodium (Kim-Colace) 1 tab PO BID [facility] Sennosides (Senokot) 17.2 mg PO Q12H PRN PRN Reason: Moderate Constipation Sodium Chloride (Ns Flush) 2 ml IV.FLUSH PRN PRN PRN Reason: FLUSH AFTER USING IV ACCESS Sodium Chloride (Ns Flush) 2 ml IV.FLUSH BID ZAK Sodium Chloride (Ns Flush) 2 ml IV.FLUSH PRN PRN PRN Reason: FLUSH AFTER USING IV ACCESS Terbutaline Sulfate (Brethine Inj) 1 mg SQ UNSCH PRN PRN Reason: For Extravasation Zinc Sulfate (Zinc-220) 220 mg PO DAILY ZAK Allergies Allergy/AdvReac Type Severity Reaction Status Date / Time daptomycin Allergy Severe Unverified 11/02/16 23:29 Sulfa (Sulfonamide Allergy Mild RASH Unverified 11/02/16 23:29 Antibiotics) Home Medications Medication Instructions Recorded Confirmed Type Lactobacillus acidophilus 1 tab PO BID 02/26/18 02/26/18 History [Acidophilus] alfuzosin 10 mg PO DAILY 02/26/18 02/26/18 History amino acids-protein hydrolys 30 ml PO DAILY 02/26/18 02/26/18 History [Pro-Stat Sugar Free] amiodarone 200 mg PO DAILY 02/26/18 02/26/18 History amlodipine 5 mg PO DAILY 02/26/18 02/26/18 History ascorbic acid (vitamin C) [Vitamin 500 mg PO BID 02/26/18 02/26/18 History C] atorvastatin 20 mg PO HS 02/26/18 02/26/18 History bisacodyl [Dulcolax (bisacodyl)] 10 mg [place] DAILY PRN 02/26/18 02/26/18 History duloxetine [Cymbalta] 20 mg PO DAILY 02/26/18 02/26/18 History furosemide [Lasix] 20 mg PO BID 02/26/18 02/26/18 History gabapentin 600 mg PO TID 02/26/18 02/26/18 History insulin lispro [Humalog U-100 2 - 10 unit SUBCUT ACHS 02/26/18 02/26/18 History Insulin] levothyroxine 50 mcg PO DAILY 02/26/18 02/26/18 History magnesium hydroxide [Milk of 30 ml PO DIRECTED PRN 02/26/18 02/26/18 History Magnesia] memantine [Namenda] 5 mg PO QPM 02/26/18 02/26/18 History metoprolol tartrate 25 mg PO BID 02/26/18 02/26/18 History morphine [MS Contin] 15 mg PO Q12H 02/26/18 02/26/18 History multivitamin [Tab-A-Lucille] 1 tab PO DAILY 02/26/18 02/26/18 History olmesartan 20 mg PO DAILY 02/26/18 02/26/18 History ondansetron HCl [Zofran] 4 mg PO Q8H PRN 02/26/18 02/26/18 History ondansetron [Zofran ODT] 4 mg PO Q6H PRN 02/26/18 02/26/18 History rivaroxaban [Xarelto] 20 mg PO QPM 02/26/18 02/26/18 History sennosides-docusate sodium 2 tab PO BID PRN 02/26/18 02/26/18 History sodium phosphates [Fleet Enema] 118 ml [place] DIRECTED PRN 02/26/18 02/26/18 History zinc sulfate 220 mg PO DAILY 02/26/18 02/26/18 History Exam Vital signs: Vital Signs 02/26/18 10:41 02/26/18 11:02 02/26/18 12:06 Temperature 98.4 F Pulse Rate 39 L 35 L 42 L Respiratory Rate 15 16 Blood Pressure 80/50 L 89/45 L Pulse Oximetry 93 L 97 02/26/18 12:50 02/26/18 13:31 Temperature Pulse Rate 78 Respiratory Rate 17 Blood Pressure Pulse Oximetry 97 96 Intake & Output 02/25/18 02/26/18 02/26/18 18:59 06:59 18:59 Weight 172.365 kg Narrative: GENERAL: Well-nourished, well-developed obese patient. SKIN: Warm and dry. HEAD: Normocephalic. EYES: No scleral icterus. No injection or drainage. NECK: Supple, trachea midline. No JVD or lymphadenopathy. CARDIOVASCULAR: Decreased heart rate RESPIRATORY: Breath sounds equal bilaterally. No accessory muscle use. GASTROINTESTINAL: Abdomen soft, non-tender, nondistended. EXTREMITIES: Cold extremities poor circulation NEUROLOGICAL: Lethargic does respond, and altered mental status Results - Lab Results 02/26/18 10:40 02/26/18 18:05 Most recent lab results Calcium 7.6 mg/dL (8.5-10.1) L 02/26/18 10:40 Magnesium 2.3 mg/dL (1.5-2.5) 02/26/18 10:40 Assessment and Plan - Assessment (1) Acute renal failure Code(s): N17.9 - Acute kidney failure, unspecified Status: Acute (2) Chronic kidney disease Code(s): N18.9 - Chronic kidney disease, unspecified Status: Acute (3) Shock Code(s): R57.9 - Shock, unspecified Status: Acute (4) BMI 50.0-59.9, adult Code(s): Z68.43 - Body mass index (BMI) 50-59.9, adult Status: Chronic (5) 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 Code(s): E11.9 - Type 2 diabetes mellitus without complications Status: Chronic - Plan Discussed with Dr. Hurst, patient appears to have sepsis UTI, severe hyperkalemia leading to bradycardia cardia heart rate is low, will need dialysis , needs to be intubated, Vas-Cath insertion, he did receive calcium, D50, insulin, bicarbonate, albuterol he is critically ill once stabilized we will start hemodialysis Continue supportive care Patient is in septic shock Continue to monitor Procedures - Arterial Line Size (Gauge): 20 (5) 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 Qualifiers: 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 type: type 2 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 senior living insulin use: with senior living use 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 complication status: with kidney complications 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 complication detail: with other kidney complication Qualified Code(s): E11.29 - Type 2 diabetes mellitus with other diabetic kidney complication; 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
--- NOTE | 2018-02-26 14:02 | CT ---
EXAM DATE: 02/26/2018 1:34 PM EST AGE/SEX: 72 years / Male INDICATIONS: Abdominal Pain CLINICAL DATA: This is the patient's initial encounter. Patient reports that signs and symptoms have been present for 1 day and indicates a pain score of 0/10. MEDICAL/SURGICAL HISTORY: Diabetes. Coronary Artery Disease, Atrial Fibrillation Tonsillectomy . Cardiac catheterization RADIATION DOSE: 17.34 CTDI (mGy) COMPARISON: No prior exams available for comparison. TECHNIQUE: Multiple contiguous axial images were obtained through the abdomen. Images were obtained using multiple row detector helical technique. Using automated exposure control and adjustment of the mA and/or kV according to patient size, radiation dose was kept as low as reasonably achievable to o btain optimal diagnostic quality images. DICOM format image data is available electronically for rev iew and comparison. FINDINGS: The study is limited secondary to heterogeneity throughout the study was may be secondary t o the patient's size. Lower Lungs: Please see the CT of the chest report. Liver: Liver appears heterogeneous. The liver is not well characterized. There is questionable 5 cm h ypodensity seen at the lateral segment the left lobe of the liver Spleen: Homogeneous density without enlargement. Pancreas: Unremarkable without mass or calcification. Kidneys: Normal in size and shape. No evidence of mass or hydronephrosis. Adrenal Glands: Unremarkable. Aorta: The aorta and proximal iliac vessels are grossly unremarkable without aneurysmal dilation. A therosclerotic calcifications are seen. Bowel/Mesentery: The bowel loops are grossly unremarkable. The cecum and sigmoid colon have a normal configuration. There is a moderate amount stool in the colon especially on the right side. Abdominal Wall: Intact. There does appear to be edema within the lateral aspects of the abdominal an d pelvic soft tissues being asymmetric and worse on the right. Retroperitoneum: No evidence of adenopathy in the retrocrural, para-aortic, or deep pelvic regions. Bladder: There is a Orozco catheter in the urinary bladder. Reproductive Organs: No abnormal masses or calcifications seen. Inguinal: Nonspecific mildly prominent lymph nodes in the inguinal regions measuring up to 1.9 cm. Bony Structures: There is degenerative change in the lumbar spine. CONCLUSION: 1. Limited study secondary to heterogeneity throughout the exam likely secondary to body habitus. 2. Heterogeneity to the liver with a possible 5 cm mass in the lateral segment the left lobe of the liver. This could be further evaluated with a better contrast-enhanced CT or MRI examination the futu re. 3. Suspected anasarca being worse on the right. Electronically signed by: Andrea Cerrato MD 02/26/2018 2:01 PM EST
[2018-02-26] MEDS: Midazolam 100 MG/100 ML Inj 100 MG/100 ML BAG IV.CONT PRN (14:30)
--- NOTE | 2018-02-26 14:42 | P.PCN ---
Date of procedure: 02/26/18 Pre-op diagnosis: Acute renal failure Post-op diagnosis: same Procedure: DATE: 02/26/2018 Hemodialysis catheter PLACEMENT: Right internal jugular vein. Ultrasound-guided INDICATION: Hemodialysis access CONSENT Informed consent for procedure was obtained from . DESCRIPTION OF THE PROCEDURE The patient was placed in supine position. The skin was cleansed with Chloraprep. Additional barrier precautions included large sterile drape, sterile gloves, sterile gown, face mask, and hat. 1 % lidocaine was used for local anesthesia. Under direct ultrasound guidance and on [] attempt, the vein was accessed with an introducer needle. The guide wire was advanced and the tract was dilated x4. Using Seldinger technique a 14 Romansh 20 cm dual-lumen hemodialysis catheter was advanced to a depth of18 centimeters. The guide wire was removed. All ports had good return of dark venous blood and flushed easily with saline. The central line was secured with 2.0 silk. A sterile dressing with antibiotic disc was applied. ESTIMATED BLOOD LOSS: Minimal COMPLICATIONS: No apparent complications. STAT chest x-ray pending at time of dictation
--- NOTE | 2018-02-26 14:44 | P.PCN ---
Date of procedure: 02/26/18 Pre-op diagnosis: Acute respiratory failure Post-op diagnosis: same Procedure: DATE: 02/26/2018 PROCEDURE: Orotracheal intubation INDICATION: Acute respiratory failure DETAILS OF PROCEDURE The patient was placed in optimal position and preoxygenated with 100% FiO2 via bag valve mask. At the start oxygen saturation was 100%. The patient was administered 20 milligrams etomidate IV and 50 milligrams rocuronium IV. I entered the oropharynx with a size 4 laryngoscope blade and obtained a grade 2 view of the airway. On single attempt a size 8.0 cuffed endotracheal tube was passed through the vocal cords. Correct tube location was confirmed with end tidal CO2 detector and by auscultating over bilateral lung cruz. The endotracheal tube was secured with adhesive tape at a depth of 24 cm at the lips. The patient was connected to the ventilator. The patient tolerated the procedure well without any apparent complications. Oxygen saturations were maintained greater than 95% all times. STAT chest x-ray pending at time of dictation.
[2018-02-26] MEDS: DOPamine 800 MG/500 ML Premix 800 MG/500 ML PLAST..BAG IV.CONT PRN (14:45)
[2018-02-26] MEDS ORDERED: Dextrose 50% in Water 50 ML Vial IV.PUSH ONE (14:53)
[2018-02-26] MEDS ORDERED: Sodium Polystyrene Sulfonate/Sorbitol Liq 15 GM/60 ML UDC PO ONE (14:53)
[2018-02-26 14:57] LABS: ABG Base Excess -6.8 mmol/L (-2-2); ABG PCO2 33 mmHg (38-42); ABG PO2 359 mmHG (61-120)
[2018-02-26] MEDS ORDERED: hydrALAZINE HCl Inj 20 MG/ML Vial IV.PUSH PRN (14:59)
[2018-02-26] MEDS ORDERED: Etomidate Inj 40 MG/20 ML Vial IV.PUSH ONE (15:00)
[2018-02-26] MEDS ORDERED: Vancomycin Inj 1,750 MG in Sodium Chlor 0.9% Inj 500 ML IV.SIG ONE (15:00)
--- NOTE | 2018-02-26 15:03 | XR ---
EXAM DATE: 02/26/2018 2:55 PM EST AGE/SEX: 72 years / Male INDICATIONS: Intubation and vas cath placement. CLINICAL DATA: This is the patient's initial encounter. Patient reports that signs and symptoms have been present for 1 day and indicates a pain score of Nonresponsive. MEDICAL/SURGICAL HISTORY: . Atrial fibrillation. Carotid artery stenosis. . Cardiac catheteriza tion. . COMPARISON: C, CHEST 1V SINGLE AP, 02/26/2018. . FINDINGS: The ET tube, NG tube and right internal jugular central line are well placed. The heart size is upper limits of normal. There is increased density at the right base with silhouetting the right hemidiaph ragm. There is milder increased density at the left base. No pneumothorax is seen. CONCLUSION: Bibasilar areas of atelectasis, consolidation and/or effusion being worse on the right. ET tube, NG tube and right internal jugular central line are well placed. Electronically signed by: Andrea Cerrato MD 02/26/2018 3:01 PM EST
[2018-02-26] MEDS: Artificial Tears Opth Drops 15 ML Bottle EACH EYE SCH ×2 (16:00→23:24)
[2018-02-26] MEDS: Oral Hygiene Kit OROPHARYNG SCH ×2 (16:01→23:24)
[2018-02-26] MEDS ORDERED: Gelatin 12 MM/7 MM Topical Foam TOPICAL PRN (16:31)
[2018-02-26] MEDS ORDERED: Sod Chloride 0.9% Inj 1,000 ML OTHER PRN ×2 (16:31)
[2018-02-26] MEDS ORDERED: Heparin 10,000 UNITS/10 ML Vial (for IV use) OTHER PRN (16:31)
[2018-02-26] MEDS ORDERED: Sod Chloride 0.9% Inj 1,000 ML IV.CONT PRN (16:31)
[2018-02-26 16:36] LABS: Calcium 8.8 mg/dL (8.5-10.1); Carbon Dioxide 24.4 meq/L (21.0-32.0); Potassium 5.2 meq/L (3.5-5.1)
--- NOTE | 2018-02-26 16:49 | ECG ---
Date Performed: 02/26/2018 Time Performed: 10:46:40 PTAGE: 72 years EKG: EXTREMELY LOW VOLTAGE RBBB MARKED BRADYCARDIA THE UNDERLYING ATRIAL RHYTHM IS DIFFICULT TO DISCERN DUE TO THE EXTREMELY LOW VOLTAGE SUSPECT MARKED SINUS BRADYCARDIA WITH JUNCTIONAL BEATS, BUT LOW VOLTAGE MAKES THE UNDERLYING ATRIAL RHYTHM DIFFICULT TO DISCERN Compared to PREVIOUS TRACING , the bradycardia, low voltage, and RBBB are new. Clinical correlation s biggngly advised. PREVIOUS TRACIN12/05/2011 11.05 DOCTOR: Jaciel López Interpretating Date/Time 02/26/2018 16:48:19
[2018-02-26] MEDS: Heparin 10,000 UNITS/10 ML Vial (for IV use) OTHER PRN (16:51)
[2018-02-26] MEDS: Sod Chloride 0.9% Inj 1,000 ML IV.CONT SCH (17:54)
[2018-02-26] MEDS: Piperacil/Tazo 2.25 GM Premix 50 ML IV.SIG SCH ×2 (17:54→22:15)
[2018-02-26 18:09] LABS: Creatinine,Urine Random 121 mg/dL (27-300); Sodium,Urine Random 29 meq/L
[2018-02-26] MEDS: GENTAMICIN 0.3% EACH EYE SCH (18:38)
[2018-02-26] MEDS: OPTH EACH EYE SCH (18:38)
[2018-02-26 19:06] LABS: Hepatitits B Surface Antigen Nonreactive (Nonreactive)
[2018-02-26 19:27] LABS: Calcium 8.3 mg/dL (8.5-10.1); Potassium 5.1 meq/L (3.5-5.1)
--- NOTE | 2018-02-26 19:29 | US ---
EXAM DATE: 02/26/2018 7:27 PM EST AGE/SEX: 72 years / Male INDICATIONS: Bilateral leg swelling. CLINICAL DATA: This is the patient's initial encounter. Patient reports that signs and symptoms have been present for 1 day and indicates a pain score of 0/10. MEDICAL/SURGICAL HISTORY: . Acute kidney failure. C-diff. Diarrhea. Thyroidectomy. Adenoidecto my. Left foot surgery. Cardiac catheterization. COMPARISON: No prior exams available for comparison. TECHNIQUE: Venous ultrasound of both lower extremities was performed from the inguinal ligament to t he proximal calf. Real-time, color Doppler and spectral tracing, compression and augmentation techni ques were used. FINDINGS: Right Leg: Normal compression of the deep venous system from the inguinal region to the proximal fara f. No echogenic clot is seen. Normal response of the venous system to augmentation and respiration. P lease note that the common femoral vein and greater saphenous vein were less than optimally visualize d secondary to a bandage. Left Leg: Normal compression of the deep venous system from the inguinal region to the proximal calf . No echogenic clot is seen. Normal response of the venous system to augmentation and respiration. Other: None. CONCLUSION: No venous thrombosis is identified within either lower extremity. Electronically signed by: Andrea Alvarez MD 02/26/2018 7:28 PM EST
[2018-02-26 19:32] LABS: Troponin I 0.03 ng/mL (0.02-0.05)
[2018-02-26 19:40] LABS: Hepatitis A IgM Antibody Nonreactive (Nonreactive)
[2018-02-26] MEDS: Ascorbic Acid 500 MG Tablet PO SCH (20:52)
[2018-02-26] MEDS: Nystatin 100,000 UNITS/GM Powder 15 GM Bottle TOPICAL SCH (20:52)
[2018-02-26] MEDS: Senna/Docusate Sodium 8.6/50 MG Tablet PO SCH (20:52)
[2018-02-26] MEDS: Chlorhexidine 0.12% Oral Kit 15 ML UDC OROPHARYNG SCH (20:53)
[2018-02-27 03:40] LABS: Baso % (Auto) 0.4 % (0.0-2.0); Eos % (Auto) 0.3 % (0.0-4.0); Hematocrit 24.7 % (39.0-51.0); Hemoglobin 8.4 gm/dL (13.0-17.0); Lymph # (Auto) 0.7 th/mm3 (1.0-4.8); Lymph % (Auto) 5.8 % (9.0-44.0); Mean Corpuscular HGB Conc 34.1 % (32.0-36.0); Mean Corpuscular Hemoglobin 28.7 pg (27.0-34.0); Mean Corpuscular Volume 84.2 fL (80.0-100.0); Mean Platelet Volume 7.8 fL (7.0-11.0); Mono # (Auto) 0.9 th/mm3 (0.0-0.9); Mono % (Auto) 7.7 % (0.0-8.0); Neut # (Auto) 9.8 th/mm3 (1.8-7.7); Neut % (Auto) 85.8 % (16.0-70.0); Platelet Count 209 th/mm3 (150-450); Red Blood Count 2.94 mil/mm3 (4.50-5.90); Red Cell Distribution Width 14.8 % (11.6-17.2); White Blood Count 11.5 th/mm3 (4.0-11.0)
[2018-02-27 03:52] LABS: INR 1.5 Ratio; Prothrombin Time 14.7 sec (9.8-11.6)
[2018-02-27] MEDS ORDERED: Chlorhexidine Gluconate 2% 1 Pack (2 Cloths) TOPICAL PRN (04:00)
[2018-02-27 04:09] LABS: Alanine Aminotransferase 186 U/L (12-78); Albumin 2.3 g/dL (3.4-5.0); Anion Gap 13 meq/L (5-15); Aspartate Aminotransferase 169 U/L (15-37); Blood Urea Nitrogen 62 mg/dL (7-18); Calcium 7.6 mg/dL (8.5-10.1); Carbon Dioxide 22.3 meq/L (21.0-32.0); Chloride 98 meq/L (98-107); Glomerular Filtration Rate 13 mL/min (>89); Glucose,Random 154 mg/dL (74-106); Magnesium 2.1 mg/dL (1.5-2.5); Phosphorus 5.2 mg/dL (2.5-4.9); Sodium 133 meq/L (136-145)
[2018-02-27 04:11] LABS: Alkaline Phosphatase 343 U/L (45-117); Total Protein 5.8 g/dL (6.4-8.2); Vancomycin,Random 14.9 Comment
[2018-02-27] MEDS: Sod Chloride 0.9% Inj 1,000 ML IV.CONT SCH ×3 (05:46→21:28)
[2018-02-27] MEDS: Oral Hygiene Kit OROPHARYNG SCH ×4 (05:47→23:00)
[2018-02-27] MEDS: Chlorhexidine Gluconate 2% 1 Pack (2 Cloths) TOPICAL SCH (05:47)
[2018-02-27] MEDS: Piperacil/Tazo 2.25 GM Premix 50 ML IV.SIG SCH ×3 (06:24→21:27)
[2018-02-27] MEDS: Midazolam 100 MG/100 ML Inj 100 MG/100 ML BAG IV.CONT PRN (06:25)
[2018-02-27] MEDS: Levothyroxine 50 MCG Tablet PO SCH (06:25)
[2018-02-27] MEDS: Artificial Tears Opth Drops 15 ML Bottle EACH EYE SCH ×3 (06:25→23:00)
[2018-02-27] MEDS: Chlorhexidine 0.12% Oral Kit 15 ML UDC OROPHARYNG SCH ×2 (07:58→21:26)
--- NOTE | 2018-02-27 09:18 | P.PNCC ---
Subjective Subjective Remarks/Hospital Course: This is a 72-year-old male. Admission 02/26/2018. Past medical includes morbid obesity, depression, dementia, coronary artery disease, hypertension, hyperlipidemia, diabetes mellitus, atrial fibrillation currently rate controlled, hypothyroidism, peripheral neuropathy, chronic kidney disease stage III-IV, chronic opiate use and chronic anticoagulation with rivaroxaban. Patient is from the [facility] re[facility]. He was originally sent to [facility] emergency department the chief diagnosis of acute altered mental status since yesterday. EMS was called and found the patient have initial heart rate in the 30s with a blood pressure 120/60 manually, they give a half a milligram of atropine which brought his heart rate into the 40s and his blood pressure 96/72. His initial GCS on scene was 12, according to EMS the residential reported that normally he is conversant and able to answer questions appropriately. Upon arrival, a central line and arterial line replaced in the right femoral vein/artery is appropriate and received 1 L normal saline. Currently on norepinephrine drip for mean arterial pressure greater than 65. Patient had normal white blood cell count. Potassium 7 with peaked T waves. Patient received D50, insulin and calcium chloride. Nephrology was consulted and recommended hemodialysis. Patient has scans of the brain, chest, abdomen pelvis pain-free chest x-ray revealed possible right pleural effusion versus infiltrate with aspiration. Patient still quite confused however is arousable and will follow commands SUBJECTIVE: 02/27: Intubated yesterday with sonorous breath sounds worsening altered mental status on arrival to floor. A right IJ hemodialysis catheter was placed in place and received emergent hemodialysis per potassium currently 5.0. Will attempt thoracentesis today to remove right pleural effusion and possible extubation afterwards. If not, will initiate tube feeding today. Objective Vital Signs / I&O: Vital Signs 02/26/18 10:41 02/26/18 11:02 02/26/18 11:30 Temperature 98.4 F Pulse Rate 39 L 35 L 40 L Respiratory Rate 15 16 Blood Pressure 80/50 L 97/40 L Pulse Oximetry 93 L 96 02/26/18 12:00 02/26/18 12:06 02/26/18 12:37 Temperature Pulse Rate 42 L 42 L 56 L Respiratory Rate 16 16 Blood Pressure 86/46 L 89/45 L 74/60 L Pulse Oximetry 99 97 02/26/18 12:50 02/26/18 13:00 02/26/18 13:31 Temperature Pulse Rate 78 62 Respiratory Rate 17 Blood Pressure 89/52 L Pulse Oximetry 97 96 02/26/18 14:16 02/26/18 15:30 02/26/18 17:00 Temperature Pulse Rate 82 91 H Respiratory Rate 20 18 18 Blood Pressure Pulse Oximetry 100 02/26/18 18:00 02/26/18 19:46 02/26/18 20:00 Temperature 95.8 F L Pulse Rate 87 78 78 Respiratory Rate 18 18 18 Blood Pressure Pulse Oximetry 100 100 02/26/18 20:57 02/26/18 21:00 02/26/18 22:00 Temperature Pulse Rate 78 75 62 Respiratory Rate 18 18 18 Blood Pressure Pulse Oximetry 100 100 100 02/26/18 23:00 02/27/18 00:00 02/27/18 00:46 Temperature 97.6 F Pulse Rate 62 62 62 Respiratory Rate 18 18 18 Blood Pressure Pulse Oximetry 100 100 100 02/27/18 01:00 02/27/18 02:00 02/27/18 03:00 Temperature Pulse Rate 62 65 66 Respiratory Rate 18 Blood Pressure Pulse Oximetry 100 100 100 02/27/18 03:52 02/27/18 04:00 02/27/18 05:00 Temperature 98.6 F Pulse Rate 66 66 67 Respiratory Rate 18 18 16 Blood Pressure Pulse Oximetry 100 100 100 02/27/18 06:00 02/27/18 07:00 02/27/18 07:49 Temperature Pulse Rate 84 74 72 Respiratory Rate 18 18 18 Blood Pressure Pulse Oximetry 100 99 98 02/27/18 08:00 Temperature Pulse Rate 73 Respiratory Rate Blood Pressure Pulse Oximetry 98 Intake & Output 02/26/18 02/27/18 02/27/18 18:59 06:59 18:59 Intake Total 150 / 150 1717.5 / 1717.5 Output Total 1500 / 1500 525 / 525 Balance -1350 / -1350 1192.5 / 1192.5 Weight 172.365 kg 150.5 kg Intake: IV 150 / 150 1717.5 / 1717.5 Versed Inj 100 mg In 100 ml @ 2 100 / 100 MG/HR 2 mls/hr IV.CONT TITRATE PRN Rx#:[id number] NS Inj 1,000 ML @ 84 mls/hr IV. 1000 / 1000 CONT .[id number] [facility] Rx#:[id number] Zosyn 2.25 GM Premix 50 ML @ 50 / 50 100 / 100 100 mls/hr IV.SIG Q8H [facility] Rx#: [id number] Vancomycin Inj 1,750 MG In NS 517.5 / 517.5 Inj 500 ML @ 250 mls/hr IV.SIG ONCE ONE Rx#:[id number] Rocephin Inj 1,000 MG In NS Inj 100 / 100 100 ML @ 200 mls/hr IV.SIG ONCE ONE Rx#:[id number] Tube Feeding 0 / 0 Output: Hemodialysis Amount 1500 / 1500 Urine Amount (Catheter) 525 / 525 Indwelling Urethral Catheter 525 / 525 Other: # Bowel Movements 0 Weight On Admission 148.5 kg Result Diagrams: 02/27/18 03:20 02/27/18 03:20 Imaging: Chest CT 02/26/18 00:00 CONCLUSION: 1. Bilateral pleural effusions being moderate on the right and mild on the left. 2. Suspected right lower lobe atelectasis likely from the effusion versus consolidation. 3. Milder consolidation or atelectasis at the left base. 4. Compression deformity of the T4 vertebral body. 5. Edema in the soft tissues being asymmetric and worse on the right. Chest X-Ray 02/26/18 00:00 CONCLUSION: Bibasilar areas of atelectasis, consolidation and/or effusion being worse on the right. ET tube, NG tube and right internal jugular central line are well placed. Venous Doppler Study 02/26/18 00:00 CONCLUSION: No venous thrombosis is identified within either lower extremity. Chest X-Ray 02/26/18 10:40 CONCLUSION: Diffuse density throughout the right lung which may represent a pleural effusion with underlying airspace disease. Moderate cardiomegaly Advanced arthropathy of the shoulder joints. Abdomen/Pelvis CT 02/26/18 11:52 CONCLUSION: 1. Limited study secondary to heterogeneity throughout the exam likely secondary to body habitus. 2. Heterogeneity to the liver with a possible 5 cm mass in the lateral segment the left lobe of the liver. This could be further evaluated with a better contrast-enhanced CT or MRI examination the future. 3. Suspected anasarca being worse on the right. Head CT 02/26/18 11:52 CONCLUSION: 1. No acute abnormality. 2. Mild cortical atrophy. . Objective Remarks: GENERAL: 72-year-old male currently orotracheally intubated SKIN: Warm and dry. HEAD: Atraumatic. Normocephalic. EYES: Pupils equal and round. No scleral icterus. No injection or drainage. ENT: No nasal bleeding or discharge. Mucous membranes pink and moist. NECK: Trachea midline. No JVD. Right IJ hemodialysis catheter is clean dry and intact CARDIOVASCULAR: Regular rate and rhythm. S1, S2 no S4. RESPIRATORY: Minutes breath sounds due to body habitus. No wheezing appreciated.. GASTROINTESTINAL: Abdomen soft, non-tender, obese with large pannus.. MUSCULOSKELETAL: Extremities with trace to 1+ bilateral lower extremity edema. Patient has a right femoral arterial and venous triple lumen catheter in place NEUROLOGICAL: Sedated on the ventilator. Currently midazolam and fentanyl drips. Assessment and Plan - Problem List (1) Depression Code(s): F32.9 - Major depressive disorder, single episode, unspecified Status : Chronic (2) Obstructive sleep apnea Code(s): G47.33 - Obstructive sleep apnea (adult) (pediatric) Status: Chronic (3) BMI 50.0-59.9, adult Code(s): Z68.43 - Body mass index (BMI) 50-59.9, adult Status: Chronic (4) 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 Code(s): E11.9 - Type 2 diabetes mellitus without complications Status: Chronic (5) Coronary artery disease Code(s): I25.10 - Atherosclerotic heart disease of [place] coronary artery without angina pectoris Status: Chronic (6) History of essential hypertension Code(s): Z86.79 - Personal history of other diseases of the circulatory system Status: Chronic (7) Hyperlipidemia Code(s): E78.5 - Hyperlipidemia, unspecified Status: Chronic (8) Peripheral neuropathy Code(s): G62.9 - Polyneuropathy, unspecified Status: Chronic (9) Atrial fibrillation Code(s): I48.91 - Unspecified atrial fibrillation Status: Chronic (10) Chronic narcotic use Code(s): F11.90 - Opioid use, unspecified, uncomplicated Status: Chronic (11) BPH (benign prostatic hyperplasia) Code(s): N40.0 - Benign prostatic hyperplasia without lower urinary tract symptoms Status: Chronic (12) Hyponatremia Code(s): E87.1 - Hypo-osmolality and hyponatremia Status: Acute (13) Normocytic anemia Code(s): D64.9 - Anemia, unspecified Status: Acute (14) Acute hyperkalemia Code(s): E87.5 - Hyperkalemia Status: Acute (15) Acute hypotension Code(s): I95.9 - Hypotension, unspecified Status: Acute (16) Shock Code(s): R57.9 - Shock, unspecified Status: Acute (17) Elevated transaminase level Code(s): R74.0 - Nonspecific elevation of levels of transaminase and lactic acid dehydrogenase [LDH] Status: Acute (18) Elevated TSH Code(s): R79.89 - Other specified abnormal findings of blood chemistry Status : Acute (19) Elevated alkaline phosphatase level Code(s): R74.8 - Abnormal levels of other serum enzymes Status: Acute (20) Hypoalbuminemia Code(s): E88.09 - Other disorders of plasma-protein metabolism, not elsewhere classified Status: Acute (21) Bradycardia Code(s): R00.1 - Bradycardia, unspecified Status: Acute - Assessment and Plan Plan: Neuro/Psych: Acute toxic metabolic encephalopathy History of TIA Depression/anxiety Chronic peripheral neuropathy secondary to diabetes mellitus Dementia disorder NOS Currently on midazolam and fentanyl for sedation/analgesia while intubated Goal of RA SS -2 Daily sedation vacation Holding gabapentin 600 mg 3 times daily for peripheral neuropathy. Resume when clinically indicated Holding scheduled morphine 15 mg every 12 hours for chronic pain Holding duloxetine 20 mg daily for depression. Resume clinically indicated Resume memantine 5 mg at night for dementia Acetaminophen 650 mg every 6 hours as needed fever Hydrocodone/acetaminophen 5/325 1 tablet every 4 hours as needed pain 1 through 5 Morphine sulfate 2 mg IV every 2 hours as needed pain [address] brain revealed no acute intracranial findings 02/26. Ammonia level 20 CV: Sinus bradycardia -resolved Paroxysmal atrial fibrillation currently normal sinus rhythm History of essential hypertension HyperLipidemia coronary artery disease Congestive heart failure unknown etiology Receive 0.5 mg atropine in route. Received 1 L normal saline crystalloid bolus. Currently norepinephrine drip to maintain mean artery pressure greater than equal 65 currently at 3 mcg/min along with a dopamine drip at 3 mcg/kg/min Received 2 L additional normal saline bolus x1 now Holding atorvastatin 20 mg a day for dyslipidemia. Resume clinically indicated Holding amiodarone 2 mg daily for atrial fibrillation with hyperkalemia. Resume clinically indicated. Holding amlodipine 5 mg daily metoprolol tartrate 20 mg twice daily for hypertension resume clinically indicated Holding olmesartan 20 mg daily with hyper kalemia and acute kidney injury. Initial troponin 0 0.02. Trend was negative. Check 2D echocardiogram Lactic currently 3.1. Will recheck Resp: History of obstructive sleep apnea Right greater than left pleural effusion Acute respiratory failure Currently on PRVC ventilation Head of bed at 30 degrees Ventilator bundle Albuterol/ipratropium aerosols every 4 hours with albuterol aerosols every 2 as needed dyspnea Will likely need CPAP once extubated Spontaneous breathing trials and clinically indicated CT thoracentesis ordered right pleural effusion CT chest revealed right greater than left pleural effusion. Anasarca.. Atelectasis right lower lobe GI: Elevated transaminases Elevated alkaline phosphatase Hospital left liver mass 5 cm Monitor transaminases. Check hepatitis panel and CPK N.p.o. status pantoprazole for GI prophylaxis DC sodium/senna 1 tablet twice daily for bowel regimen. Avoid hepatotoxic medications Follow-up on CT abdomen/pelvis revealed small left liver mass. Follow-up MRI in future : BPH Holding alfazosin 10 mg daily for BPH while hypotensive on vasopressors Maintain Orozco catheter Endo: 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 Hypothyroidism with elevated TSH On levothyroxine 50 mcg daily. Continue TSH was 5.02 Sliding scale insulin with Accu-Cheks to maintain euglycemia every 6 hours/ aspart insulin low regimen On sliding scale lispro insulin at home Renal: Acute kidney injury in the setting of chronic kidney disease stage IIIb Maintain Orozco catheter Monitor urine output Accurate I's and O's Check urine eosinophils, sodium and creatinine Will receive hemodialysis 12/27 per nephrology's request. Dr. Leal has been consulted. Defer dialysis to him in future Heme: Leukocytosis Normocytic anemia Chronic rivaroxaban use -holding 48 hours pending thoracentesis Elevated INR/PTT Monitor CBC daily. Follow trends. No indication for transfusion of blood products at this time. Resume baseline anticoagulant after CT head ID: Blood cultures x2, sputum and UA pending Currently on vancomycin and piperacillin/tazobactam FEN: Acute hyperkalemia Hyponatremia Received D50/insulin/calcium in the ED. Received acute hemodialysis today which will correct the underlying electrolyte derangement Potassium currently 5.0. Recheck MSK: Elevated BMI greater than 50 Bilateral lower extremity heel ulcers Weight loss encouraged PT evaluate and Wound care evaluate and treat Access -Right femoral CVL and right femoral arterial CVL day 1 placed the ED by Prophylaxis -GI -pantoprazole -DVT -SCD/holding pharmacological prophylaxis pending CT brain Critical care time 35 minutes Procedures - Arterial Line Size (Gauge): 20 (1) Depression Qualifiers: Depression Type: major depressive disorder Major depression recurrence: recurrent Active/Remission status: remission status unspecified Qualified Code (s): F33.9 - Major depressive disorder, recurrent, unspecified (4) 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 Qualifiers: 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 type: type 2 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 retirement insulin use: with retirement use 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 complication status: with kidney complications 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 complication detail: with other kidney complication Qualified Code(s): E11.29 - Type 2 diabetes mellitus with other diabetic kidney complication; Z79.4 - skilled nursing (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 (5) Coronary artery disease Qualifiers: Coronary Disease-Associated Artery/Lesion type: unspecified vessel or lesion type [place] vs. transplanted heart: [place] heart Associated angina: without angina Qualified Code(s): I25.10 - Atherosclerotic heart disease of [place] coronary artery without angina pectoris (7) Hyperlipidemia Qualifiers: Hyperlipidemia type: unspecified Qualified Code(s): E78.5 - Hyperlipidemia, unspecified (8) Peripheral neuropathy Qualifiers: Peripheral neuropathy type: polyneuropathy, unspecified Qualified Code(s): G62.9 - Polyneuropathy, unspecified (9) Atrial fibrillation Qualifiers: Atrial fibrillation type: paroxysmal Qualified Code(s): I48.0 - Paroxysmal atrial fibrillation (11) BPH (benign prostatic hyperplasia) Qualifiers: Lower urinary tract symptom presence: unspecified whether lower urinary tract symptoms present Qualified Code(s): N40.0 - Benign prostatic hyperplasia without lower urinary tract symptoms
[2018-02-27] MEDS: Nystatin 100,000 UNITS/GM Powder 15 GM Bottle TOPICAL SCH ×2 (09:55→21:27)
[2018-02-27] MEDS: Pantoprazole Inj 40 MG Vial IV.PUSH SCH (09:55)
[2018-02-27] MEDS: GENTAMICIN 0.3% EACH EYE SCH ×2 (09:56→15:13)
[2018-02-27] MEDS: Senna/Docusate Sodium 8.6/50 MG Tablet PO SCH ×2 (09:56→21:27)
[2018-02-27] MEDS: Ascorbic Acid 500 MG Tablet PO SCH ×2 (09:56→21:27)
[2018-02-27] MEDS: OPTH EACH EYE SCH ×2 (09:56→15:13)
[2018-02-27] MEDS ORDERED: Vancomycin Inj 1,000 MG in Sodium Chlor 0.9% Inj 250 ML IV.SIG SCH (10:00)
[2018-02-27] MEDS: Heparin 10,000 UNITS/10 ML Vial (for IV use) OTHER PRN (10:01)
[2018-02-27] MEDS: Albumin Human 25% Inj 100 ML IV.SIG PRN ×2 (10:42→11:00)
--- NOTE | 2018-02-27 11:00 | P.PNNP ---
Subjective Interval history: Patient is seen during dialysis on dopamine Physical Exam Vital signs: Vital Signs 02/26/18 11:02 02/26/18 11:30 02/26/18 12:00 Temperature Pulse Rate 35 L 40 L 42 L Respiratory Rate 16 16 Blood Pressure 97/40 L 86/46 L Pulse Oximetry 96 99 02/26/18 12:06 02/26/18 12:37 02/26/18 12:50 Temperature Pulse Rate 42 L 56 L 78 Respiratory Rate 16 17 Blood Pressure 89/45 L 74/60 L Pulse Oximetry 97 97 02/26/18 13:00 02/26/18 13:31 02/26/18 14:16 Temperature Pulse Rate 62 Respiratory Rate 20 Blood Pressure 89/52 L Pulse Oximetry 96 100 02/26/18 15:30 02/26/18 17:00 02/26/18 18:00 Temperature Pulse Rate 82 91 H 87 Respiratory Rate 18 18 18 Blood Pressure Pulse Oximetry 02/26/18 19:46 02/26/18 20:00 02/26/18 20:57 Temperature 95.8 F L Pulse Rate 78 78 78 Respiratory Rate 18 18 18 Blood Pressure Pulse Oximetry 100 100 100 02/26/18 21:00 02/26/18 22:00 02/26/18 23:00 Temperature Pulse Rate 75 62 62 Respiratory Rate 18 18 18 Blood Pressure Pulse Oximetry 100 100 100 02/27/18 00:00 02/27/18 00:46 02/27/18 01:00 Temperature 97.6 F Pulse Rate 62 62 62 Respiratory Rate 18 18 Blood Pressure Pulse Oximetry 100 100 100 02/27/18 02:00 02/27/18 03:00 02/27/18 03:52 Temperature Pulse Rate 65 66 66 Respiratory Rate 18 18 Blood Pressure Pulse Oximetry 100 100 100 02/27/18 04:00 02/27/18 05:00 02/27/18 06:00 Temperature 98.6 F Pulse Rate 66 67 84 Respiratory Rate 18 16 18 Blood Pressure Pulse Oximetry 100 100 100 02/27/18 07:00 02/27/18 07:49 02/27/18 08:00 Temperature 98.6 F Pulse Rate 74 72 73 Respiratory Rate 18 18 11 L Blood Pressure Pulse Oximetry 99 98 98 02/27/18 09:00 Temperature Pulse Rate 76 Respiratory Rate Blood Pressure Pulse Oximetry Intake & Output 02/26/18 02/27/18 02/27/18 18:59 06:59 18:59 Intake Total 150 / 150 1717.5 / 1717.5 Output Total 1500 / 1500 525 / 525 Balance -1350 / -1350 1192.5 / 1192.5 Weight 172.365 kg 150.5 kg Intake: IV 150 / 150 1717.5 / 1717.5 Versed Inj 100 mg In 100 ml @ 2 100 / 100 MG/HR 2 mls/hr IV.CONT TITRATE PRN Rx#:[id number] NS Inj 1,000 ML @ 84 mls/hr IV. 1000 / 1000 CONT .[id number] [facility] Rx#:[id number] Zosyn 2.25 GM Premix 50 ML @ 50 / 50 100 / 100 100 mls/hr IV.SIG Q8H [facility] Rx#: [id number] Vancomycin Inj 1,750 MG In NS 517.5 / 517.5 Inj 500 ML @ 250 mls/hr IV.SIG ONCE ONE Rx#:[id number] Rocephin Inj 1,000 MG In NS Inj 100 / 100 100 ML @ 200 mls/hr IV.SIG ONCE ONE Rx#:[id number] Tube Feeding 0 / 0 Output: Hemodialysis Amount 1500 / 1500 Urine Amount (Catheter) 525 / 525 Indwelling Urethral Catheter 525 / 525 Other: # Bowel Movements 0 Weight On Admission 148.5 kg Narrative: GENERAL: Well-nourished, well-developed intubated patient. SKIN: Warm and dry. HEAD: Normocephalic. EYES: No scleral icterus. No injection or drainage. NECK: Supple, intubated. CARDIOVASCULAR: S1-S2 irregular RESPIRATORY: Breath sounds equal bilaterally. No accessory muscle use. GASTROINTESTINAL: Abdomen soft, non-tender, nondistended. EXTREMITIES: Cold extremities poor circulation NEUROLOGICAL: Intubated - Urinary Catheter Management Indwelling Urethral Catheter Cath placed during this visit: yes, but has since been removed by the nurse Reason for continuing: Chronic Urinary Retention Insertion date: 02/26/18 Insertion time: 16:00 Removal date: 02/26/18 Removal time: 15:30 Assessment and Plan - Assessment (1) Acute renal failure Code(s): N17.9 - Acute kidney failure, unspecified Status: Acute (2) Chronic kidney disease Code(s): N18.9 - Chronic kidney disease, unspecified Status: Acute (3) Shock Code(s): R57.9 - Shock, unspecified Status: Acute (4) BMI 50.0-59.9, adult Code(s): Z68.43 - Body mass index (BMI) 50-59.9, adult Status: Chronic (5) 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 Code(s): E11.9 - Type 2 diabetes mellitus without complications Status: Chronic Qualifiers: 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 type: type 2 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 fdc insulin use: with terminal manager use 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 complication status: with kidney complications 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 complication detail: with other kidney complication Qualified Code(s): E11.29 - Type 2 diabetes mellitus with other diabetic kidney complication; 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
[2018-02-27] MEDS: DOPamine 800 MG/500 ML Premix 800 MG/500 ML PLAST..BAG IV.CONT PRN (12:10)
--- NOTE | 2018-02-27 16:02 | CT ---
EXAM DATE: 02/27/2018 3:59 PM EST AGE/SEX: 72 years / Male INDICATIONS: Right pleural effusion. CLINICAL DATA: This is the patient's initial encounter. Patient reports that signs and symptoms have been present for 1 day and indicates a pain score of Nonresponsive. MEDICAL/SURGICAL HISTORY: Cardiovascular disease. Hypertension. Renal failure, acute. None. COMPARISON: No prior exams available for comparison. DEVICE(S): 6 Fr [id number] FLUID: Total volume of 1500 of cloudy, yellow fluid was removed. Fluid was sent to lab for ordered studies.. . . PROCEDURE: CT guided right thoracentesis. The site was prepped in sterile fashion. Full sterile technique was used, including cap, mask, steri le gloves and gown and a large sterile sheet. Hand hygiene and 2% chlorhexidine and/or betadine/alco hol prep was utilized per protocol for cutaneous antisepsis. The skin and subcutaneous tissues were infiltrated with local anesthetic solution. Using automated exposure control and adjustment of the mA and/or kV according to patient size, radiation dose was kept as low as reasonably achievable to obta in optimal diagnostic quality images. DICOM format image data is available electronically for review and comparison. With the patient supine on the CT table, records management manager images were obtained through the chest demonstrating t he right sided pleural effusion. Dermatotomy was made and the prescribed catheter was advanced into the pleural fluid. The pleural fluid as above was removed from the hemithorax. Post procedural scan show reduction in the amount of fluid with no evidence of pneumothorax. The patient was sent to recovery in stable condition. FINDINGS: CONCLUSION: 1. Uncomplicated CT-guided thoracentesis. Electronically signed by: Abram Brink MD 02/27/2018 4:01 PM EST
[2018-02-27 17:14] LABS: Total Protein,Pleural Fluid 3.4 gm/dL
[2018-02-27] MEDS: Gentamicin 0.3% Opth Drops 5 ML Bottle EACH EYE SCH ×2 (17:16→22:59)
[2018-02-27 17:20] LABS: Eosinophils,Pleural Fluid 1 %; Lymphocytes,Pleural Fluid 53 %; Mesothelial,Pleural Fluid 4 %; Monocytes,Pleural Fluid 13 %; Neutrophils,Pleural Fluid 21 %; RBC,Pleural Fluid 354 /mm3 (0-0)
--- NOTE | 2018-02-27 18:03 | P.PNWCN ---
Wound Care Nurse Consult Additional information: Attempted to see patient around [id number], will attempt to see patient tomorrow.
[2018-02-28] MEDS: Midazolam 100 MG/100 ML Inj 100 MG/100 ML BAG IV.CONT PRN (02:25)
[2018-02-28] MEDS: Oral Hygiene Kit OROPHARYNG SCH ×3 (04:00→15:57)
[2018-02-28 04:57] LABS: Baso % (Auto) 0.3 % (0.0-2.0); Eos % (Auto) 0.3 % (0.0-4.0); Hematocrit 24.8 % (39.0-51.0); Hemoglobin 8.7 gm/dL (13.0-17.0); Lymph # (Auto) 0.6 th/mm3 (1.0-4.8); Lymph % (Auto) 3.9 % (9.0-44.0); Mean Corpuscular Hemoglobin 29.2 pg (27.0-34.0); Mean Corpuscular Volume 83.5 fL (80.0-100.0); Mono # (Auto) 0.9 th/mm3 (0.0-0.9); Mono % (Auto) 6.6 % (0.0-8.0); Neut # (Auto) 12.5 th/mm3 (1.8-7.7); Neut % (Auto) 88.9 % (16.0-70.0); Platelet Count 204 th/mm3 (150-450); Red Blood Count 2.97 mil/mm3 (4.50-5.90); Red Cell Distribution Width 15.1 % (11.6-17.2); White Blood Count 14.1 th/mm3 (4.0-11.0)
--- NOTE | 2018-02-28 05:16 | XR ---
EXAM DATE: 02/28/2018 5:11 AM EST AGE/SEX: 72 years / Male INDICATIONS: Short of breath. CLINICAL DATA: This is the patient's subsequent encounter. Patient reports that signs and symptoms h ave been present for 4 - 6 days and indicates a pain score of 0/10. MEDICAL/SURGICAL HISTORY: . Atrial fibrillation. Carotid artery stenosis. . Cardiac catheteri zation. COMPARISON: C, CHEST 1V SINGLE AP, 02/26/2018. . FINDINGS: 2 AP views of the chest. Endotracheal tube, nasogastric tube, and right IJ central venous catheter re main in place. Persistent bilateral pulmonary opacity with decrease on the right and no change in the left. There is also likely a left pleural effusion. Cardiomediastinal silhouette unchanged. No evide nce of pneumothorax. CONCLUSION: Decreased right lung opacity. Persistent diffuse hazy left lung opacity with likely superimposed pare nchymal opacity and pleural effusion. Electronically signed by: Rigoberto aPyne MD 02/28/2018 5:14 AM EST
[2018-02-28 05:20] LABS: Activated Partial Thrombo Time 35.4 sec (23.4-31.7); INR 1.5 Ratio; Prothrombin Time 15.1 sec (9.8-11.6)
[2018-02-28 05:28] LABS: Albumin 2.6 g/dL (3.4-5.0); Calcium 7.4 mg/dL (8.5-10.1); Carbon Dioxide 24.6 meq/L (21.0-32.0); Phosphorus 4.8 mg/dL (2.5-4.9); Potassium 4.3 meq/L (3.5-5.1); Total Protein 6.1 g/dL (6.4-8.2); Vancomycin,Random 11.3 Comment
[2018-02-28] MEDS: Levothyroxine 50 MCG Tablet PO SCH (06:19)
[2018-02-28] MEDS: Chlorhexidine Gluconate 2% 1 Pack (2 Cloths) TOPICAL SCH (06:19)
[2018-02-28] MEDS: Piperacil/Tazo 2.25 GM Premix 50 ML IV.SIG SCH ×3 (06:19→23:44)
[2018-02-28] MEDS: Sod Chloride 0.9% Inj 1,000 ML IV.CONT SCH ×2 (06:20→14:28)
[2018-02-28] MEDS: Gentamicin 0.3% Opth Drops 5 ML Bottle EACH EYE SCH ×3 (06:20→23:44)
[2018-02-28] MEDS: Artificial Tears Opth Drops 15 ML Bottle EACH EYE SCH ×3 (06:20→23:44)
[2018-02-28] MEDS: Pantoprazole Inj 40 MG Vial IV.PUSH SCH (08:09)
[2018-02-28] MEDS: Senna/Docusate Sodium 8.6/50 MG Tablet PO SCH ×2 (08:09→21:12)
[2018-02-28] MEDS: Ascorbic Acid 500 MG Tablet PO SCH ×2 (08:09→21:12)
[2018-02-28] MEDS: Chlorhexidine 0.12% Oral Kit 15 ML UDC OROPHARYNG SCH ×2 (08:10→21:11)
[2018-02-28] MEDS: Nystatin 100,000 UNITS/GM Powder 15 GM Bottle TOPICAL SCH ×2 (08:10→21:12)
[2018-02-28] MEDS ORDERED: Dexmedetomidine Inj 200 MCG in Sodium Chlor 0.9% Inj 48 ML IV.CONT PRN (08:32)
--- NOTE | 2018-02-28 08:57 | P.PNCC ---
Subjective Subjective Remarks/Hospital Course: This is a 72-year-old male. Admission 02/26/2018. Past medical includes morbid obesity, depression, dementia, coronary artery disease, hypertension, hyperlipidemia, diabetes mellitus, atrial fibrillation currently rate controlled, hypothyroidism, peripheral neuropathy, chronic kidney disease stage III-IV, chronic opiate use and chronic anticoagulation with rivaroxaban. Patient is from the [facility] and rehab [facility]. He was originally sent to [facility] emergency department the chief diagnosis of acute altered mental status since yesterday. EMS was called and found the patient have initial heart rate in the 30s with a blood pressure 120/60 manually, they give a half a milligram of atropine which brought his heart rate into the 40s and his blood pressure 96/72. His initial GCS on scene was 12, according to EMS the half-way reported that normally he is conversant and able to answer questions appropriately. Upon arrival, a central line and arterial line replaced in the right femoral vein/artery is appropriate and received 1 L normal saline. Currently on norepinephrine drip for mean arterial pressure greater than 65. Patient had normal white blood cell count. Potassium 7 with peaked T waves. Patient received D50, insulin and calcium chloride. Nephrology was consulted and recommended hemodialysis. Patient has scans of the brain, chest, abdomen pelvis pain-free chest x-ray revealed possible right pleural effusion versus infiltrate with aspiration. Patient still quite confused however is arousable and will follow commands 02/27: Intubated yesterday with sonorous breath sounds worsening altered mental status on arrival to floor. A right IJ hemodialysis catheter was placed in place and received emergent hemodialysis per potassium currently 5.0. Will attempt thoracentesis today to remove right pleural effusion and possible extubation afterwards. If not, will initiate tube feeding today. SUBJECTIVE: 02/28: -1500 cc cloudy yellow fluid removed with right-sided thoracentesis yesterday. Appears exudative by light's criteria. Attempting CPAP trials today with attempt extubate. -2500 cc with hemodialysis yesterday.. Objective Vital Signs / I&O: Vital Signs 02/27/18 09:00 02/27/18 10:00 02/27/18 11:00 Temperature Pulse Rate 76 77 81 Respiratory Rate 15 10 L 18 Blood Pressure 95/46 L 95/54 L 115/53 L Pulse Oximetry 98 98 98 02/27/18 11:16 02/27/18 12:00 02/27/18 13:00 Temperature 98.5 F Pulse Rate 83 84 85 Respiratory Rate 19 17 17 Blood Pressure 112/51 L 114/53 L Pulse Oximetry 98 97 97 02/27/18 14:00 02/27/18 14:40 02/27/18 15:00 Temperature Pulse Rate 82 79 Respiratory Rate 17 15 Blood Pressure 112/53 L Pulse Oximetry 96 100 100 02/27/18 15:38 02/27/18 16:00 02/27/18 16:04 Temperature 98.3 F Pulse Rate 80 78 77 Respiratory Rate 15 15 17 Blood Pressure 112/51 L 101/42 L 98/41 L Pulse Oximetry 100 100 100 02/27/18 16:05 02/27/18 17:00 02/27/18 18:00 Temperature Pulse Rate 77 79 78 Respiratory Rate 15 16 7 L Blood Pressure 95/45 L 94/45 L Pulse Oximetry 100 99 100 02/27/18 19:00 02/27/18 19:50 02/27/18 19:56 Temperature Pulse Rate 78 78 Respiratory Rate 16 15 15 Blood Pressure 95/46 L Pulse Oximetry 98 98 02/27/18 20:00 02/27/18 21:00 02/27/18 22:00 Temperature 98.2 F Pulse Rate 78 79 78 Respiratory Rate 17 16 16 Blood Pressure 97/48 L 99/48 L 96/47 L Pulse Oximetry 98 99 99 02/27/18 22:20 02/27/18 23:00 02/27/18 23:41 Temperature Pulse Rate 77 77 Respiratory Rate 18 18 18 Blood Pressure 95/46 L Pulse Oximetry 98 97 02/28/18 00:00 02/28/18 01:00 02/28/18 01:40 Temperature 98.6 F Pulse Rate 77 77 Respiratory Rate 18 20 18 Blood Pressure 97/46 L 97/51 L Pulse Oximetry 98 97 97 02/28/18 02:00 02/28/18 03:00 02/28/18 03:48 Temperature Pulse Rate 75 78 78 Respiratory Rate 8 L 20 18 Blood Pressure 98/51 L 99/49 L Pulse Oximetry 98 98 02/28/18 04:00 02/28/18 04:25 02/28/18 05:00 Temperature 98.6 F Pulse Rate 78 80 Respiratory Rate 20 18 25 H Blood Pressure 98/49 L 106/55 L Pulse Oximetry 98 98 95 Intake & Output 02/27/18 02/28/18 02/28/18 18:59 06:59 18:59 Intake Total 1550 / 1550 350 / 350 50 / 50 Output Total 2900 / 2900 900 / 900 Balance -1350 / -1350 350 / 350 -850 / -850 Weight 153.3 kg Intake: IV 1550 / 1550 350 / 350 50 / 50 DOPamine 800 MG/500 ML Premix 500 / 500 800 mg In 500 ml @ 3 MCG/KG/MIN 19.391 mls/hr IV.CONT TITRATE PRN Rx#:[id number] Versed Inj 100 mg In 100 ml @ 2 100 / 100 MG/HR 2 mls/hr IV.CONT TITRATE PRN Rx#:[id number] NS Inj 1,000 ML @ 84 mls/hr IV. 800 / 800 200 / 200 CONT .[id number] ANA Rx#:[id number] Flexbumin 25% Inj 100 ML @ 60 200 / 200 mls/hr IV.SIG WITH DIALYSIS PRN Rx#:[id number] Zosyn 2.25 GM Premix 50 ML @ 50 / 50 50 / 50 50 / 50 100 mls/hr IV.SIG Q8H ANA Rx#: [id number] Oral 0 / 0 Output: Hemodialysis Amount 2500 / 2500 Urine Amount (Catheter) 400 / 400 900 / 900 Indwelling Urethral Catheter 400 / 400 900 / 900 Gastric Drainage 0 / 0 Oral Orogastric Tube 0 / 0 Other: # Bowel Movements 0 Result Diagrams: 02/28/18 04:30 02/28/18 04:30 Other Results: Microbiology 02/26/18 16:00 Catheterized Urine Urine Culture - Final No growth in 48 hours 02/26/18 12:50 Clean Catch Urine Urine Culture - Final No growth in 48 hours 02/26/18 12:50 Blood - Line Aerobic Blood Culture - Preliminary No growth in 1 day 02/26/18 12:50 Blood - Line Anaerobic Blood Culture - Preliminary No growth in 1 day 02/26/18 12:55 Blood - Line Aerobic Blood Culture - Preliminary No growth in 1 day 02/26/18 12:55 Blood - Line Anaerobic Blood Culture - Preliminary No growth in 1 day Imaging: Chest CT 02/26/18 00:00 CONCLUSION: 1. Bilateral pleural effusions being moderate on the right and mild on the left. 2. Suspected right lower lobe atelectasis likely from the effusion versus consolidation. 3. Milder consolidation or atelectasis at the left base. 4. Compression deformity of the T4 vertebral body. 5. Edema in the soft tissues being asymmetric and worse on the right. Chest X-Ray 02/26/18 00:00 CONCLUSION: Bibasilar areas of atelectasis, consolidation and/or effusion being worse on the right. ET tube, NG tube and right internal jugular central line are well placed. Venous Doppler Study 02/26/18 00:00 CONCLUSION: No venous thrombosis is identified within either lower extremity. Chest X-Ray 02/26/18 10:40 CONCLUSION: Diffuse density throughout the right lung which may represent a pleural effusion with underlying airspace disease. Moderate cardiomegaly Advanced arthropathy of the shoulder joints. Abdomen/Pelvis CT 02/26/18 11:52 CONCLUSION: 1. Limited study secondary to heterogeneity throughout the exam likely secondary to body habitus. 2. Heterogeneity to the liver with a possible 5 cm mass in the lateral segment the left lobe of the liver. This could be further evaluated with a better contrast-enhanced CT or MRI examination the future. 3. Suspected anasarca being worse on the right. Head CT 02/26/18 11:52 CONCLUSION: 1. No acute abnormality. 2. Mild cortical atrophy. . Thoracentesis CT 02/27/18 00:00 CONCLUSION: 1. Uncomplicated CT-guided thoracentesis. Chest X-Ray 02/28/18 06:00 CONCLUSION: Decreased right lung opacity. Persistent diffuse hazy left lung opacity with likely superimposed parenchymal opacity and pleural effusion. Objective Remarks: GENERAL: 72-year-old male currently orotracheally intubated SKIN: Warm and dry. HEAD: Atraumatic. Normocephalic. EYES: Pupils equal and round. No scleral icterus. No injection or drainage. ENT: No nasal bleeding or discharge. Mucous membranes pink and moist. NECK: Trachea midline. No JVD. Right IJ hemodialysis catheter is clean dry and intact CARDIOVASCULAR: Regular rate and rhythm. S1, S2 no S4. RESPIRATORY: Minutes breath sounds due to body habitus. No wheezing appreciated.. GASTROINTESTINAL: Abdomen soft, non-tender, obese with large pannus.. MUSCULOSKELETAL: Extremities with trace to 1+ bilateral lower extremity edema. Patient has a right femoral arterial and venous triple lumen catheter in place NEUROLOGICAL: Sedated on the ventilator. Currently midazolam and fentanyl drips. Assessment and Plan - Problem List (1) Depression Code(s): F32.9 - Major depressive disorder, single episode, unspecified Status : Chronic (2) Obstructive sleep apnea Code(s): G47.33 - Obstructive sleep apnea (adult) (pediatric) Status: Chronic (3) BMI 50.0-59.9, adult Code(s): Z68.43 - Body mass index (BMI) 50-59.9, adult Status: Chronic (4) 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 Code(s): E11.9 - Type 2 diabetes mellitus without complications Status: Chronic (5) Coronary artery disease Code(s): I25.10 - Atherosclerotic heart disease of jackson coronary artery without angina pectoris Status: Chronic (6) History of essential hypertension Code(s): Z86.79 - Personal history of other diseases of the circulatory system Status: Chronic (7) Hyperlipidemia Code(s): E78.5 - Hyperlipidemia, unspecified Status: Chronic (8) Peripheral neuropathy Code(s): G62.9 - Polyneuropathy, unspecified Status: Chronic (9) Atrial fibrillation Code(s): I48.91 - Unspecified atrial fibrillation Status: Chronic (10) Chronic narcotic use Code(s): F11.90 - Opioid use, unspecified, uncomplicated Status: Chronic (11) BPH (benign prostatic hyperplasia) Code(s): N40.0 - Benign prostatic hyperplasia without lower urinary tract symptoms Status: Chronic (12) Hyponatremia Code(s): E87.1 - Hypo-osmolality and hyponatremia Status: Acute (13) Normocytic anemia Code(s): D64.9 - Anemia, unspecified Status: Acute (14) Acute hyperkalemia Code(s): E87.5 - Hyperkalemia Status: Acute (15) Acute hypotension Code(s): I95.9 - Hypotension, unspecified Status: Acute (16) Shock Code(s): R57.9 - Shock, unspecified Status: Acute (17) Elevated transaminase level Code(s): R74.0 - Nonspecific elevation of levels of transaminase and lactic acid dehydrogenase [LDH] Status: Acute (18) Elevated TSH Code(s): R79.89 - Other specified abnormal findings of blood chemistry Status : Acute (19) Elevated alkaline phosphatase level Code(s): R74.8 - Abnormal levels of other serum enzymes Status: Acute (20) Hypoalbuminemia Code(s): E88.09 - Other disorders of plasma-protein metabolism, not elsewhere classified Status: Acute (21) Bradycardia Code(s): R00.1 - Bradycardia, unspecified Status: Acute - Assessment and Plan Plan: Neuro/Psych: Acute toxic metabolic encephalopathy History of TIA Depression/anxiety Chronic peripheral neuropathy secondary to diabetes mellitus Dementia disorder NOS Currently on midazolam and fentanyl for sedation/analgesia while intubated Goal of RA SS -2 Daily sedation vacation Holding gabapentin 600 mg 3 times daily for peripheral neuropathy. Resume when clinically indicated Holding scheduled morphine 15 mg every 12 hours for chronic pain Holding duloxetine 20 mg daily for depression. Resume clinically indicated Resume memantine 5 mg at night for dementia Acetaminophen 650 mg every 6 hours as needed fever Hydrocodone/acetaminophen 5/325 1 tablet every 4 hours as needed pain 1 through 5 Morphine sulfate 2 mg IV every 2 hours as needed pain [address] brain revealed no acute intracranial findings 02/26. Ammonia level 20 CV: Sinus bradycardia -resolved Paroxysmal atrial fibrillation currently normal sinus rhythm History of essential hypertension HyperLipidemia coronary artery disease Congestive heart failure unknown etiology Receive 0.5 mg atropine in route. Received 1 L normal saline crystalloid bolus. Currently dopamine drip at 3 mcg/kg/min Received 2 L additional normal saline bolus x1 now Holding atorvastatin 20 mg a day for dyslipidemia. Resume clinically indicated Holding amiodarone 2 mg daily for atrial fibrillation with hyperkalemia. Resume clinically indicated. Holding amlodipine 5 mg daily metoprolol tartrate 20 mg twice daily for hypertension resume clinically indicated Holding olmesartan 20 mg daily with hyper kalemia and acute kidney injury. Initial troponin 0 0.02. Trend was negative. Check 2D echocardiogram Weaning off dopamine drip Resp: History of obstructive sleep apnea Right greater than left pleural effusion/exudative by light's criteria Acute respiratory failure Currently on PRVC ventilation Head of bed at 30 degrees Ventilator bundle Albuterol/ipratropium aerosols every 4 hours with albuterol aerosols every 2 as needed dyspnea Will likely need CPAP once extubated Spontaneous breathing trials and clinically indicated CT thoracentesis ordered right pleural effusion. -[address] chest revealed right greater than left pleural effusion. Anasarca.. Atelectasis right lower lobe Will attempt CPAP trial today to extubate. GI: Elevated transaminases Elevated alkaline phosphatase Hospital left liver mass 5 cm Monitor transaminases. Check hepatitis panel and CPK N.p.o. status pantoprazole for GI prophylaxis DC sodium/senna 1 tablet twice daily for bowel regimen. Avoid hepatotoxic medications Follow-up on CT abdomen/pelvis revealed small left liver mass. Follow-up MRI in future : BPH Holding alfazosin 10 mg daily for BPH while hypotensive on vasopressors Maintain Orozco catheter Endo: 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 Hypothyroidism with elevated TSH On levothyroxine 50 mcg daily. Continue TSH was 5.02 Sliding scale insulin with Accu-Cheks to maintain euglycemia every 6 hours/ aspart insulin low regimen On sliding scale lispro insulin at home Renal: Acute kidney injury in the setting of chronic kidney disease stage IIIb Maintain Orozco catheter Monitor urine output Accurate I's and O's Check urine eosinophils, sodium and creatinine Will receive hemodialysis 12/27 per nephrology's request. Dr. Leal has been consulted. Defer dialysis to him in future -2500 cc 02/27 Heme: Leukocytosis Normocytic anemia Chronic rivaroxaban use -holding 48 hours pending thoracentesis Elevated INR/PTT Monitor CBC daily. Follow trends. No indication for transfusion of blood products at this time. Resume baseline anticoagulant after CT head ID: Blood cultures x2, sputum and UA pending Currently on vancomycin and piperacillin/tazobactam FEN: Received D50/insulin/calcium in the ED. Received acute hemodialysis today which will correct the underlying electrolyte derangement Potassium currently within normal limits. Recheck in a.m. MSK: Elevated BMI greater than 50 Bilateral lower extremity heel ulcers Weight loss encouraged PT evaluate and Wound care evaluate and treat Access -Right femoral CVL and right femoral arterial CVL day 3 placed the ED by . Right IJ dialysis catheter day #3 placed Prophylaxis -GI -pantoprazole -DVT -SCD/holding pharmacological prophylaxis pending CT brain Critical care time 35 minutes Procedures - Arterial Line Size (Gauge): 20 (1) Depression Qualifiers: Depression Type: major depressive disorder Major depression recurrence: recurrent Active/Remission status: remission status unspecified Qualified Code (s): F33.9 - Major depressive disorder, recurrent, unspecified (4) 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 Qualifiers: 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 type: type 2 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 penitentiary insulin use: with recruitment consultant use 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 complication status: with kidney complications 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 complication detail: with other kidney complication Qualified Code(s): E11.29 - Type 2 diabetes mellitus with other diabetic kidney complication; Z79.4 - attending ambulatory care (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 (5) Coronary artery disease Qualifiers: Coronary Disease-Associated Artery/Lesion type: unspecified vessel or lesion type [place] vs. transplanted heart: jackson heart Associated angina: without angina Qualified Code(s): I25.10 - Atherosclerotic heart disease of jackson coronary artery without angina pectoris (7) Hyperlipidemia Qualifiers: Hyperlipidemia type: unspecified Qualified Code(s): E78.5 - Hyperlipidemia, unspecified (8) Peripheral neuropathy Qualifiers: Peripheral neuropathy type: polyneuropathy, unspecified Qualified Code(s): G62.9 - Polyneuropathy, unspecified (9) Atrial fibrillation Qualifiers: Atrial fibrillation type: paroxysmal Qualified Code(s): I48.0 - Paroxysmal atrial fibrillation (11) BPH (benign prostatic hyperplasia) Qualifiers: Lower urinary tract symptom presence: unspecified whether lower urinary tract symptoms present Qualified Code(s): N40.0 - Benign prostatic hyperplasia without lower urinary tract symptoms
[2018-02-28 09:26] LABS: ABG Base Excess 0.5 mmol/L (-2-2); ABG PCO2 45 mmHg (38-42); ABG PO2 71 mmHG (61-120)
--- NOTE | 2018-02-28 14:04 | P.PNNP ---
Subjective Interval history: Patient remains intubated status post thoracentesis 1.5 L removed on the right side, dialysis yesterday 2.5 L, patient may be extubated this afternoon Physical Exam Vital signs: Vital Signs 02/27/18 14:40 02/27/18 15:00 02/27/18 15:38 Temperature Pulse Rate 79 80 Respiratory Rate 15 15 Blood Pressure 112/51 L Pulse Oximetry 100 100 100 02/27/18 16:00 02/27/18 16:04 02/27/18 16:05 Temperature 98.3 F Pulse Rate 78 77 77 Respiratory Rate 15 17 15 Blood Pressure 101/42 L 98/41 L Pulse Oximetry 100 100 100 02/27/18 17:00 02/27/18 18:00 02/27/18 19:00 Temperature Pulse Rate 79 78 78 Respiratory Rate 16 7 L 16 Blood Pressure 95/45 L 94/45 L 95/46 L Pulse Oximetry 99 100 98 02/27/18 19:50 02/27/18 19:56 02/27/18 20:00 Temperature 98.2 F Pulse Rate 78 78 Respiratory Rate 15 15 17 Blood Pressure 97/48 L Pulse Oximetry 98 98 02/27/18 21:00 02/27/18 22:00 02/27/18 22:20 Temperature Pulse Rate 79 78 Respiratory Rate 16 16 18 Blood Pressure 99/48 L 96/47 L Pulse Oximetry 99 99 98 02/27/18 23:00 02/27/18 23:41 02/28/18 00:00 Temperature 98.6 F Pulse Rate 77 77 77 Respiratory Rate 18 18 18 Blood Pressure 95/46 L 97/46 L Pulse Oximetry 97 98 02/28/18 01:00 02/28/18 01:40 02/28/18 02:00 Temperature Pulse Rate 77 75 Respiratory Rate 20 18 8 L Blood Pressure 97/51 L 98/51 L Pulse Oximetry 97 97 98 02/28/18 03:00 02/28/18 03:48 02/28/18 04:00 Temperature 98.6 F Pulse Rate 78 78 78 Respiratory Rate 20 18 20 Blood Pressure 99/49 L 98/49 L Pulse Oximetry 98 98 02/28/18 04:25 02/28/18 05:00 02/28/18 08:00 Temperature 97.4 F L Pulse Rate 80 71 Respiratory Rate 18 25 H 18 Blood Pressure 106/55 L 107/53 L Pulse Oximetry 98 95 97 02/28/18 08:50 02/28/18 08:53 02/28/18 09:00 Temperature Pulse Rate 68 67 Respiratory Rate 19 23 Blood Pressure Pulse Oximetry 97 98 02/28/18 10:13 02/28/18 11:36 02/28/18 12:00 Temperature 97.5 F L Pulse Rate 68 67 Respiratory Rate 17 17 15 Blood Pressure 102/49 L Pulse Oximetry 93 L 93 L Intake & Output 02/27/18 02/28/18 02/28/18 18:59 06:59 18:59 Intake Total 1550 / 1550 350 / 350 50 / 50 Output Total 2900 / 2900 900 / 900 Balance -1350 / -1350 350 / 350 -850 / -850 Weight 153.3 kg Intake: IV 1550 / 1550 350 / 350 50 / 50 DOPamine 800 MG/500 ML Premix 500 / 500 800 mg In 500 ml @ 3 MCG/KG/MIN 19.391 mls/hr IV.CONT TITRATE PRN Rx#:[id number] Versed Inj 100 mg In 100 ml @ 2 100 / 100 MG/HR 2 mls/hr IV.CONT TITRATE PRN Rx#:[id number] NS Inj 1,000 ML @ 84 mls/hr IV. 800 / 800 200 / 200 CONT .[id number] [facility] Rx#:[id number] Flexbumin 25% Inj 100 ML @ 60 200 / 200 mls/hr IV.SIG WITH DIALYSIS PRN Rx#:[id number] Zosyn 2.25 GM Premix 50 ML @ 50 / 50 50 / 50 50 / 50 100 mls/hr IV.SIG Q8H [facility] Rx#: [id number] Oral 0 / 0 Output: Hemodialysis Amount 2500 / 2500 Urine Amount (Catheter) 400 / 400 900 / 900 Indwelling Urethral Catheter 400 / 400 900 / 900 Gastric Drainage 0 / 0 Oral Orogastric Tube 0 / 0 Other: # Bowel Movements 0 Narrative: GENERAL: Well-nourished, well-developed intubated patient. SKIN: Warm and dry. HEAD: Normocephalic. EYES: No scleral icterus. No injection or drainage. NECK: Supple, intubated. CARDIOVASCULAR: S1-S2 irregular RESPIRATORY: Breath sounds equal bilaterally. No accessory muscle use. GASTROINTESTINAL: Abdomen soft, non-tender, nondistended. EXTREMITIES: Cold extremities poor circulation NEUROLOGICAL: Intubated - Urinary Catheter Management Indwelling Urethral Catheter Cath placed during this visit: yes, but has since been removed by the nurse Reason for continuing: Chronic Urinary Retention Insertion date: 02/26/18 Insertion time: 16:00 Removal date: 02/26/18 Removal time: 15:30 Assessment and Plan - Assessment (1) Acute renal failure Code(s): N17.9 - Acute kidney failure, unspecified Status: Acute (2) Chronic kidney disease Code(s): N18.9 - Chronic kidney disease, unspecified Status: Acute (3) Shock Code(s): R57.9 - Shock, unspecified Status: Acute (4) BMI 50.0-59.9, adult Code(s): Z68.43 - Body mass index (BMI) 50-59.9, adult Status: Chronic (5) 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 Code(s): E11.9 - Type 2 diabetes mellitus without complications Status: Chronic Qualifiers: 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 type: type 2 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 derrick engineer insulin use: with derrick engineer use 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 complication status: with kidney complications 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 complication detail: with other kidney complication Qualified Code(s): E11.29 - Type 2 diabetes mellitus with other diabetic kidney complication; Z79.4 - intermediate (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 - Plan Patient can wake up on ventilator, being weaned off the ventilator Blood pressure on dopamine is better Monitored random vancomycin level Discussed with daughter that he has acute renal failure and he has cardiovascular compromise and this may improve over the next several days and she asked me about kidney transplant and I told her that it is too early, patient has recovered from acute illness, underlying infection and there is a good chance that he may recover his kidney functions if his blood pressure and heart rate continues to improve. Continue to monitor his progress Procedures - Arterial Line Size (Gauge): 20
--- NOTE | 2018-02-28 15:06 | P.PNWCN ---
Wound Care Nurse Consult Additional information: Attempted to see patient again today for wound management of heels and sacral area.Heels were assessed. Patient has a dry scab on the L heel. Sacral area was not able to be visualized today, patient was just taken off sedation and is agitated. Bed is small and risk of injury with his agitation is high. Will reassess patient tomorrow.New bed has been ordered for patient.
--- NOTE | 2018-02-28 18:06 | MR ---
EXAM DATE: 02/28/2018 5:47 PM EST AGE/SEX: 72 years / Male INDICATIONS: . Lethargic. CLINICAL DATA: This is the patient's subsequent encounter. Patient reports that signs and symptoms h ave been present for 2 days and indicates a pain score of Nonresponsive. MEDICAL/SURGICAL HISTORY: Hypertension. Cardiovascular disease. Diabetes. Tonsillectomy. Foot surgery. COMPARISON: [facility] – [place], [place] HEAD W/O CONTRAST, 02/26/2018. . TECHNIQUE: Multiplanar, multisequence examination of the brain was performed without contrast. FINDINGS: Cerebrum: The ventricles are normal for age with moderate atrophic change with sulcal and ventricula r prominence. No evidence of midline shift, mass lesion, hemorrhage or acute infarction. No extraaxi al fluid collections are seen. The pituitary gland and suprasellar cistern are normal in configurati on. White Matter: On the FLAIR weighted images there is increased signal in the periventricular white ma tter and centrum semiovale characteristic of chronic small vessel ischemic changes. Posterior Fossa: The cerebellum and brainstem are intact. The 4th ventricle is midline. The cerebel lopontine angle is unremarkable. The cerebellar tonsils are normal in position. Diffusion Imaging: No focal areas of restricted diffusion are seen. No evidence of acute infarction . Extracranial: The visualized portions of the orbits are unremarkable. There is mucosal thickening an d small air-fluid levels in the sphenoid sinuses and ethmoidal air cells. CONCLUSION: 1. No acute hemorrhage, mass or evidence of infarction. 2. Atrophy and chronic small vessel ischemic change. 3. Mucosal thickening and small air-fluid levels in the sphenoid sinuses and ethmoidal air cells whi ch could indicate acute sinusitis. Electronically signed by: Yosi Mccann MD 02/28/2018 6:05 PM EST
--- NOTE | 2018-02-28 18:26 | MR ---
EXAM DATE: 02/28/2018 6:08 PM EST AGE/SEX: 72 years / Male INDICATIONS: Cervical stenosis. CLINICAL DATA: This is the patient's subsequent encounter. Patient reports that signs and symptoms h ave been present for 2 days and indicates a pain score of Nonresponsive. MEDICAL/SURGICAL HISTORY: Cardiovascular disease. Diabetes. Hypertension. Tonsillectomy. Foot surgery. COMPARISON: No prior exams available for comparison. TECHNIQUE: Multiplanar, multisequence MRI examination of the cervical spine was performed without co ntrast. FINDINGS: Vertebrae: Multilevel degenerative changes. Degenerative disc disease at every level of the cervical spine. Alignment: Minimal retrolisthesis C2 on 3 otherwise normal alignment. Cord: Normal configuration and signal. Post Fossa: The cerebellar tonsils are normal in position. C2-C3: Minimal retrolisthesis. Moderate broad-based protrusion abuts the ventral cord and in conjunct ion with ligamentum flavum thickening causes severe canal stenosis. Thecal sac measures 4 mm The neur al foramina are patent bilaterally. C3-C4: Mild broad-based posterior disc osteophyte complex abuts the ventral cord and in conjunction with ligamentum flavum thickening causes mild canal stenosis. There is moderate bilateral neural fora kayla narrowing. C4-C5: Moderate broad-based protrusion abuts the ventral cord and in conjunction with ligamentum fla vum thickening causes moderate canal stenosis. Moderate severe bilateral neural foraminal narrowing. C5-C6: Moderate broad-based protrusion abuts the ventral cord and in conjunction with ligamentum fla vum thickening causes moderate canal stenosis. Severe bilateral neural foraminal narrowing. C6-C7: Moderate broad-based protrusion abuts the ventral cord and in conjunction with ligamentum fla vum thickening causes moderate canal stenosis. Moderate bilateral neural foraminal narrowing. C7-T1: Moderate broad-based protrusion abuts the ventral cord and causes mild canal stenosis. CONCLUSION: 1. Multilevel protrusions causing severe canal stenosis at C2-3. 2. Mild canal stenosis at C3-4 and C7-T1. 3. Moderate canal stenosis at C4-5, C5-6 and 6 7 levels. Electronically signed by: Khoi Silverio MD 02/28/2018 6:25 PM EST
--- NOTE | 2018-02-28 18:31 | MG ---
cc: Abram Stanley MD ELECTROENCEPHALOGRAM NUMBER: [id number] MEDICATIONS: 1. Versed. 2. Fentanyl. 3. Namenda. CLINICAL HISTORY: A 72-year-old with kidney failure, dementia. DESCRIPTION: A diffuse 5-6 Hz, lower to moderate amplitude rhythm is seen. The recording overall is synchronous and symmetric. No hemisphere asymmetries are noted. No epileptiform or seizure activity seen. Some alpha rhythms are noted in the middle of the recording which are normal appearing. Photic stimulation performed without significant posterior driving. IMPRESSION: Some mild diffuse slowing and some lower amplitudes. Could be medication effect, but no focal abnormality was noted. No seizure activity was seen. Abram Stanley MD DJM/jl , 06:05 PM , 06:11 PM
--- NOTE | 2018-02-28 21:03 | ECHRPT ---
Indication: HEART FAILURE CONCLUSIONS Normal left ventricular size. Mild concentric left ventricular hypertrophy. The left ventricular systolic function is normal with an estimated ejection fraction in the range of 55-60%. The left atrial size is mildly dilated. Malfq-cb-jrhe mitral valve regurgitation. The estimated pulmonary arterial pressure is 58 mmHg. BP: / HR: Rhythm: MEASUREMENTS (Male / Female) Normal Values Technical Quality:Very technically difficult study 2D ECHO LV Diastolic Diameter PLAX 5.0 cm 4.2 - 5.9 / 3.9 - 5.3 cm LV Systolic Diameter PLAX 4.0 cm IVS Diastolic Thickness 1.5 cm 0.6 - 1.0 / 0.6 - 0.9 cm LVPW Diastolic Thickness 1.3 cm 0.6 - 1.0 / 0.6 - 0.9 cm LV Relative Wall Thickness 0.6 RV Internal Dim ED PLAX 3.8 cm LVOT Diameter 2.3 cm Aortic Root Diameter 3.1 cm LA Systolic Diameter LX 4.1 cm 3.0 - 4.0 / 2.7 - 3.8 cm LV Ejection Fraction MOD 4C 59.9 % LV Ejection Fraction 4C AL 61.9 % M-MODE Aortic Root Diameter MM 3.7 cm LA Systolic Diameter MM 5.7 cm LA Ao Ratio MM 1.5 AV Cusp Separation MM 2.3 cm DOPPLER AV Peak Velocity 159.0 cm/s AV Peak Gradient 10.1 mmHg LVOT Peak Velocity 108.0 cm/s LVOT Peak Gradient 4.7 mmHg AV Area Cont Eq pk 2.8 cm Mitral E Point Velocity 97.7 cm/s Mitral A Point Velocity 99.7 cm/s Mitral E to A Ratio 1.0 TR Peak Velocity 345.0 cm/s TR Peak Gradient 47.6 mmHg Right Atrial Pressure 10.0 mmHg Pulmonary Artery Systolic Pressu 57.6 mmHg Right Ventricular Systolic Press 57.6 mmHg PV Peak Velocity 134.0 cm/s PV Peak Gradient 7.2 mmHg FINDINGS LEFT VENTRICLE Normal left ventricular size. Mild concentric left ventricular hypertrophy. The left ventricular systolic function is normal with an estimated ejection fraction in the range of 55-60%. RIGHT VENTRICLE Normal right ventricular size and systolic function. LEFT ATRIUM The left atrial size is mildly dilated. RIGHT ATRIUM The right atrial size is normal. ATRIAL SEPTUM Normal atrial septal thickness without atrial level shunting by limited color doppler interrogation. AORTA The aortic root and proximal ascending aorta are normal in size on limited imaging. MITRAL VALVE Rsmpr-xm-mbfw mitral valve regurgitation. AORTIC VALVE Trileaflet aortic valve. No aortic valve stenosis or regurgitation. TRICUSPID VALVE The estimated pulmonary arterial pressure is 58 mmHg. PULMONARY VALVE No pulmonary valve regurgitation or stenosis. VESSELS The inferior vena cava is normal in size. PERICARDIUM No pericardial effusion. Jojo Hall MD, FACC (Electronically Signed) Final Date:28 February 2018 21:02
[2018-03-01] MEDS: Sod Chloride 0.9% Inj 1,000 ML IV.CONT SCH ×2 (00:58→11:40)
[2018-03-01] MEDS: Oral Hygiene Kit OROPHARYNG SCH ×5 (00:58→23:37)
[2018-03-01 04:47] LABS: Baso % (Auto) 0.3 % (0.0-2.0); Eos # (Auto) 0.1 th/mm3 (0.0-0.4); Eos % (Auto) 0.3 % (0.0-4.0); Hematocrit 25.1 % (39.0-51.0); Hemoglobin 8.4 gm/dL (13.0-17.0); Lymph # (Auto) 0.6 th/mm3 (1.0-4.8); Lymph % (Auto) 4.2 % (9.0-44.0); Mean Corpuscular HGB Conc 33.4 % (32.0-36.0); Mean Corpuscular Hemoglobin 28.6 pg (27.0-34.0); Mean Corpuscular Volume 85.6 fL (80.0-100.0); Mean Platelet Volume 8.6 fL (7.0-11.0); Mono # (Auto) 0.8 th/mm3 (0.0-0.9); Mono % (Auto) 5.2 % (0.0-8.0); Neut # (Auto) 13.8 th/mm3 (1.8-7.7); Platelet Count 193 th/mm3 (150-450); Red Blood Count 2.93 mil/mm3 (4.50-5.90); Red Cell Distribution Width 14.9 % (11.6-17.2); White Blood Count 15.3 th/mm3 (4.0-11.0)
[2018-03-01 05:12] LABS: Albumin 2.3 g/dL (3.4-5.0); Anion Gap 11 meq/L (5-15); Aspartate Aminotransferase 49 U/L (15-37); Blood Urea Nitrogen 42 mg/dL (7-18); Calcium 7.5 mg/dL (8.5-10.1); Carbon Dioxide 25.2 meq/L (21.0-32.0); Chloride 103 meq/L (98-107); Glomerular Filtration Rate 16 mL/min (>89); Glucose,Random 120 mg/dL (74-106); Magnesium 2.1 mg/dL (1.5-2.5); Potassium 4.1 meq/L (3.5-5.1); Sodium 139 meq/L (136-145)
[2018-03-01] MEDS: Piperacil/Tazo 2.25 GM Premix 50 ML IV.SIG SCH ×3 (05:13→21:05)
[2018-03-01] MEDS: Chlorhexidine Gluconate 2% 1 Pack (2 Cloths) TOPICAL SCH (05:13)
[2018-03-01] MEDS: Levothyroxine 50 MCG Tablet PO SCH (05:13)
[2018-03-01 05:17] LABS: Alanine Aminotransferase 91 U/L (12-78); Alkaline Phosphatase 298 U/L (45-117); Phosphorus 5.1 mg/dL (2.5-4.9); Total Protein 5.9 g/dL (6.4-8.2); Vancomycin,Random 8.8 Comment
--- NOTE | 2018-03-01 06:04 | XR ---
EXAM DATE: 03/01/2018 6:00 AM EST AGE/SEX: 72 years / Male INDICATIONS: Respiratory failure. CLINICAL DATA: This is the patient's subsequent encounter. Patient reports that signs and symptoms h ave been present for 4 - 6 days and indicates a pain score of Nonresponsive. MEDICAL/SURGICAL HISTORY: Non-responsive. Non-responsive. COMPARISON: C, CHEST 1V SINGLE AP, 02/28/2018. . FINDINGS: 2 AP views of the chest. Endotracheal tube, nasogastric tube, right IJ central venous catheter remain in place. Bilateral hazy pulmonary opacity with lower lung zone predominance again seen. Right lung opacity is increased when compared to prior study. Left lung opacity is unchanged. No evidence of pne umothorax. Cardiomediastinal silhouette is unchanged. CONCLUSION: More symmetric, bilateral pulmonary opacities again seen likely representing a combination of parench ymal opacity and pleural effusion. The opacity has increased on the right and is unchanged on the lef t. Electronically signed by: Rigoberto Payne MD 03/01/2018 6:03 AM EST
[2018-03-01] MEDS: Gentamicin 0.3% Opth Drops 5 ML Bottle EACH EYE SCH ×3 (06:34→23:37)
[2018-03-01] MEDS: Artificial Tears Opth Drops 15 ML Bottle EACH EYE SCH ×3 (06:34→23:37)
--- NOTE | 2018-03-01 07:38 | P.PNCC ---
Subjective Subjective Remarks/Hospital Course: This is a 72-year-old male. Admission 02/26/2018. Past medical includes morbid obesity, depression, dementia, coronary artery disease, hypertension, hyperlipidemia, diabetes mellitus, atrial fibrillation currently rate controlled, hypothyroidism, peripheral neuropathy, chronic kidney disease stage III-IV, chronic opiate use and chronic anticoagulation with rivaroxaban. Patient is [facility]. He was originally sent [facility] emergency department the chief diagnosis of acute altered mental status since yesterday. EMS was called and found the patient have initial heart rate in the 30s with a blood pressure 120/60 manually, they give a half a milligram of atropine which brought his heart rate into the 40s and his blood pressure 96/72. His initial GCS on scene was 12, according to [facility] that normally he is conversant and able to answer questions appropriately. Upon arrival, a central line and arterial line replaced in the right femoral vein/artery is appropriate and received 1 L normal saline. Currently on norepinephrine drip for mean arterial pressure greater than 65. Patient had normal white blood cell count. Potassium 7 with peaked T waves. Patient received D50, insulin and calcium chloride. Nephrology was consulted and recommended hemodialysis. Patient has scans of the brain, chest, abdomen pelvis pain-free chest x-ray revealed possible right pleural effusion versus infiltrate with aspiration. Patient still quite confused however is arousable and will follow commands 02/27: Intubated yesterday with sonorous breath sounds worsening altered mental status on arrival to floor. A right IJ hemodialysis catheter was placed in place and received emergent hemodialysis per potassium currently 5.0. Will attempt thoracentesis today to remove right pleural effusion and possible extubation afterwards. If not, will initiate tube feeding today. 02/28: -1500 cc cloudy yellow fluid removed with right-sided thoracentesis yesterday. Appears exudative by light's criteria. Attempting CPAP trials today with attempt extubate. -2500 cc with hemodialysis yesterday.. SUBJECTIVE: 03/01: Afebrile. MRI brain yesterday evening no acute findings. EEG revealed mild slowing but no epileptiform activity. MRI C-spine however did reveal C2/C ventral cord disc at left thickening. Thecal sac 4 mm. Patient is moving all 4 extremities and is more arousable today. Midazolam drip off since yesterday morning. Objective Vital Signs / I&O: Vital Signs 02/28/18 08:00 02/28/18 08:50 02/28/18 08:53 Temperature 97.4 F L Pulse Rate 71 68 Respiratory Rate 18 19 23 Blood Pressure 107/53 L Pulse Oximetry 97 97 98 02/28/18 09:00 02/28/18 10:13 02/28/18 11:36 Temperature Pulse Rate 67 68 Respiratory Rate 17 17 Blood Pressure Pulse Oximetry 93 L 02/28/18 12:00 02/28/18 13:54 02/28/18 16:00 Temperature 97.5 F L 98.4 F Pulse Rate 67 66 Respiratory Rate 15 15 15 Blood Pressure 102/49 L 102/51 L Pulse Oximetry 93 L 95 92 L 02/28/18 16:09 02/28/18 16:44 02/28/18 18:19 Temperature Pulse Rate 66 Respiratory Rate 16 19 Blood Pressure Pulse Oximetry 92 L 93 L 100 02/28/18 19:23 02/28/18 20:00 02/28/18 20:47 Temperature 97.7 F Pulse Rate 68 68 Respiratory Rate 18 18 18 Blood Pressure 124/60 Pulse Oximetry 95 93 L 03/01/18 00:00 03/01/18 00:07 03/01/18 04:00 Temperature 98 F 97.9 F Pulse Rate 70 71 70 Respiratory Rate 18 19 18 Blood Pressure 124/70 132/58 L Pulse Oximetry 95 95 95 03/01/18 04:40 03/01/18 04:41 Temperature Pulse Rate 69 Respiratory Rate 18 18 Blood Pressure Pulse Oximetry 95 Intake & Output 02/28/18 03/01/18 03/01/18 18:59 06:59 18:59 Intake Total 1352 / 1352 848 / 848 0 / 0 Output Total 900 / 900 600 / 600 Balance 452 / 452 248 / 248 0 / 0 Weight 162.3 kg Intake: IV 1352 / 1352 848 / 848 NS Inj 1,000 ML @ 84 mls/hr IV. 1252 / 1252 748 / 748 CONT .[id number] ANA Rx#:[id number] Zosyn 2.25 GM Premix 50 ML @ 100 / 100 100 / 100 100 mls/hr IV.SIG Q8H ANA Rx#: [id number] Oral 0 / 0 0 / 0 Output: Urine 600 / 600 Urine Amount (Catheter) 900 / 900 Indwelling Urethral Catheter 900 / 900 Other: Date of Last Bowel Movement 02/28/18 # Bowel Movements 1 Result Diagrams: 03/01/18 02:00 03/01/18 02:00 Other Results: Microbiology 02/26/18 12:50 Blood - Line Aerobic Blood Culture - Preliminary No growth in 2 days 02/26/18 12:50 Blood - Line Anaerobic Blood Culture - Preliminary No growth in 2 days 02/26/18 12:55 Blood - Line Aerobic Blood Culture - Preliminary No growth in 2 days 02/26/18 12:55 Blood - Line Anaerobic Blood Culture - Preliminary No growth in 2 days 02/27/18 23:00 Sputum - Endotracheal Gram Stain - Final 02/26/18 16:00 Catheterized Urine Urine Culture - Final No growth in 48 hours 02/26/18 12:50 Clean Catch Urine Urine Culture - Final No growth in 48 hours Imaging: Chest CT 02/26/18 00:00 CONCLUSION: 1. Bilateral pleural effusions being moderate on the right and mild on the left. 2. Suspected right lower lobe atelectasis likely from the effusion versus consolidation. 3. Milder consolidation or atelectasis at the left base. 4. Compression deformity of the T4 vertebral body. 5. Edema in the soft tissues being asymmetric and worse on the right. Chest X-Ray 02/26/18 00:00 CONCLUSION: Bibasilar areas of atelectasis, consolidation and/or effusion being worse on the right. ET tube, NG tube and right internal jugular central line are well placed. Venous Doppler Study 02/26/18 00:00 CONCLUSION: No venous thrombosis is identified within either lower extremity. Chest X-Ray 02/26/18 10:40 CONCLUSION: Diffuse density throughout the right lung which may represent a pleural effusion with underlying airspace disease. Moderate cardiomegaly Advanced arthropathy of the shoulder joints. Abdomen/Pelvis CT 02/26/18 11:52 CONCLUSION: 1. Limited study secondary to heterogeneity throughout the exam likely secondary to body habitus. 2. Heterogeneity to the liver with a possible 5 cm mass in the lateral segment the left lobe of the liver. This could be further evaluated with a better contrast-enhanced CT or MRI examination the future. 3. Suspected anasarca being worse on the right. Head CT 02/26/18 11:52 CONCLUSION: 1. No acute abnormality. 2. Mild cortical atrophy. . Thoracentesis CT 02/27/18 00:00 CONCLUSION: 1. Uncomplicated CT-guided thoracentesis. Chest X-Ray 02/28/18 06:00 CONCLUSION: Decreased right lung opacity. Persistent diffuse hazy left lung opacity with likely superimposed parenchymal opacity and pleural effusion. Cervical Spine MRI 02/28/18 14:24 CONCLUSION: 1. Multilevel protrusions causing severe canal stenosis at C2-3. 2. Mild canal stenosis at C3-4 and C7-T1. 3. Moderate canal stenosis at C4-5, C5-6 and 6 7 levels. Head MRI 02/28/18 14:24 CONCLUSION: 1. No acute hemorrhage, mass or evidence of infarction. 2. Atrophy and chronic small vessel ischemic change. 3. Mucosal thickening and small air-fluid levels in the sphenoid sinuses and ethmoidal air cells which could indicate acute sinusitis. Chest X-Ray 03/01/18 00:01 CONCLUSION: More symmetric, bilateral pulmonary opacities again seen likely representing a combination of parenchymal opacity and pleural effusion. The opacity has increased on the right and is unchanged on the left. Objective Remarks: GENERAL: 72-year-old male currently orotracheally intubated SKIN: Warm and dry. HEAD: Atraumatic. Normocephalic. EYES: Pupils equal and round. No scleral icterus. No injection or drainage. ENT: No nasal bleeding or discharge. Mucous membranes pink and moist. NECK: Trachea midline. No JVD. Right IJ hemodialysis catheter is clean dry and intact CARDIOVASCULAR: Regular rate and rhythm. S1, S2 no S4. RESPIRATORY: Minutes breath sounds due to body habitus. No wheezing appreciated.. GASTROINTESTINAL: Abdomen soft, non-tender, obese with large pannus.. MUSCULOSKELETAL: Extremities with trace to 1+ bilateral lower extremity edema. Patient has a right femoral arterial and venous triple lumen catheter in place NEUROLOGICAL: Sedated on the ventilator. Currently midazolam and fentanyl drips. Assessment and Plan - Problem List (1) Depression Code(s): F32.9 - Major depressive disorder, single episode, unspecified Status : Chronic (2) Obstructive sleep apnea Code(s): G47.33 - Obstructive sleep apnea (adult) (pediatric) Status: Chronic (3) BMI 50.0-59.9, adult Code(s): Z68.43 - Body mass index (BMI) 50-59.9, adult Status: Chronic (4) 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 Code(s): E11.9 - Type 2 diabetes mellitus without complications Status: Chronic (5) Coronary artery disease Code(s): I25.10 - Atherosclerotic heart disease of [place] coronary artery without angina pectoris Status: Chronic (6) History of essential hypertension Code(s): Z86.79 - Personal history of other diseases of the circulatory system Status: Chronic (7) Hyperlipidemia Code(s): E78.5 - Hyperlipidemia, unspecified Status: Chronic (8) Peripheral neuropathy Code(s): G62.9 - Polyneuropathy, unspecified Status: Chronic (9) Atrial fibrillation Code(s): I48.91 - Unspecified atrial fibrillation Status: Chronic (10) Chronic narcotic use Code(s): F11.90 - Opioid use, unspecified, uncomplicated Status: Chronic (11) BPH (benign prostatic hyperplasia) Code(s): N40.0 - Benign prostatic hyperplasia without lower urinary tract symptoms Status: Chronic (12) Hyponatremia Code(s): E87.1 - Hypo-osmolality and hyponatremia Status: Acute (13) Normocytic anemia Code(s): D64.9 - Anemia, unspecified Status: Acute (14) Acute hyperkalemia Code(s): E87.5 - Hyperkalemia Status: Acute (15) Acute hypotension Code(s): I95.9 - Hypotension, unspecified Status: Acute (16) Shock Code(s): R57.9 - Shock, unspecified Status: Acute (17) Elevated transaminase level Code(s): R74.0 - Nonspecific elevation of levels of transaminase and lactic acid dehydrogenase [LDH] Status: Acute (18) Elevated TSH Code(s): R79.89 - Other specified abnormal findings of blood chemistry Status : Acute (19) Elevated alkaline phosphatase level Code(s): R74.8 - Abnormal levels of other serum enzymes Status: Acute (20) Hypoalbuminemia Code(s): E88.09 - Other disorders of plasma-protein metabolism, not elsewhere classified Status: Acute (21) Bradycardia Code(s): R00.1 - Bradycardia, unspecified Status: Acute - Assessment and Plan Plan: Neuro/Psych: Acute toxic metabolic encephalopathy History of TIA Depression/anxiety Chronic peripheral neuropathy secondary to diabetes mellitus Dementia disorder NOS Currently on midazolam and fentanyl for sedation/analgesia while intubated Goal of RA SS -2 Daily sedation vacation Holding gabapentin 600 mg 3 times daily for peripheral neuropathy. Resume when clinically indicated Holding scheduled morphine 15 mg every 12 hours for chronic pain Holding duloxetine 20 mg daily for depression. Resume clinically indicated Resume memantine 5 mg at night for dementia Acetaminophen 650 mg every 6 hours as needed fever Hydrocodone/acetaminophen 5/325 1 tablet every 4 hours as needed pain 1 through 5 Morphine sulfate 2 mg IV every 2 hours as needed pain [address] brain revealed no acute intracranial findings 02/26. Ammonia level 20 EEG 02/28 revealed mild slowing. No epileptic activity. MR brain 1211 revealed no acute intracranial findings See musculoskeletal versus MR C-spine Per family request neurology consultation. CV: Sinus bradycardia -resolved Paroxysmal atrial fibrillation currently normal sinus rhythm History of essential hypertension HyperLipidemia coronary artery disease Congestive heart failure unknown etiology Receive 0.5 mg atropine in route. Received 1 L normal saline crystalloid bolus. Currently dopamine drip at 3 mcg/kg/min Received 2 L additional normal saline bolus x1 now Holding atorvastatin 20 mg a day for dyslipidemia. Resume clinically indicated Holding amiodarone 2 mg daily for atrial fibrillation with hyperkalemia. Resume clinically indicated. Holding amlodipine 5 mg daily metoprolol tartrate 20 mg twice daily for hypertension resume clinically indicated Holding olmesartan 20 mg daily with hyper kalemia and acute kidney injury. Initial troponin 0 0.02. Trend was negative. 02/28 2D echocardiogram -EF 55-60%. LVH. Moderate MR. PA P 58 mmHg Weaning off dopamine drip Resp: History of obstructive sleep apnea Right greater than left pleural effusion/exudative by light's criteria Acute respiratory failure Currently on PRVC ventilation Head of bed at 30 degrees Ventilator bundle Albuterol/ipratropium aerosols every 4 hours with albuterol aerosols every 2 as needed dyspnea Will likely need CPAP once extubated Spontaneous breathing trials and clinically indicated CT thoracentesis ordered right pleural effusion. -[address] chest revealed right greater than left pleural effusion. Anasarca.. Atelectasis right lower lobe Will attempt CPAP trial today to extubate. GI: Elevated transaminases Elevated alkaline phosphatase Hospital left liver mass 5 cm Hypoalbuminemia Monitor transaminases. Check hepatitis panel and CPK N.p.o. status pantoprazole for GI prophylaxis DC sodium/senna 1 tablet twice daily for bowel regimen. Avoid hepatotoxic medications Follow-up on CT abdomen/pelvis revealed small left liver mass. Follow-up MRI in future : BPH Holding alfazosin 10 mg daily for BPH while hypotensive on vasopressors Maintain Orozco catheter Endo: 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 Hypothyroidism with elevated TSH On levothyroxine 50 mcg daily. Continue TSH was 5.02 Sliding scale insulin with Accu-Cheks to maintain euglycemia every 6 hours/ aspart insulin low regimen On sliding scale lispro insulin at home Renal: Acute kidney injury in the setting of chronic kidney disease stage IIIb Maintain Orozco catheter Monitor urine output Accurate I's and O's Check urine eosinophils, sodium and creatinine Will receive hemodialysis 12/27. Also received 02/27. Per nephrology's request. Dr. Leal has been consulted. Defer dialysis to him in future -2500 cc 02/27 900 cc urine output past 24 hours Heme: Leukocytosis Normocytic anemia Chronic rivaroxaban use -holding 48 hours pending thoracentesis Elevated INR/PTT Monitor CBC daily. Follow trends. No indication for transfusion of blood products at this time. Resume baseline anticoagulant after CT head ID: Blood cultures x2, and UA 02/26 no growth Sputum revealed gram-positive cocci in pairs and clusters 02/27. Results pending. Currently on vancomycin and piperacillin/tazobactam FEN: Hyperphosphatemia Received D50/insulin/calcium in the ED. Received acute hemodialysis today which will correct the underlying electrolyte derangement Potassium currently within normal limits. Recheck in a.m. MSK: Elevated BMI greater than 50 Bilateral lower extremity heel ulcers Cervical canal stenosis Weight loss encouraged PT evaluate and Wound care evaluate and treat MR C-spine revealed C2/3 ventral cord with LF thickening. Thecal sac 4 mm. Moderate C4/5 C5/6 and C6-7 stenosis. Mild C3/4 and C7/T1 stenosis Access -Right femoral CVL and right femoral arterial CVL day 3 placed the ED by . Right IJ dialysis catheter day #3 placed Prophylaxis -GI -pantoprazole -DVT -SCD/holding pharmacological prophylaxis pending CT brain Critical care time 35 minutes Code Status: Full code Procedures - Arterial Line Size (Gauge): 20 (1) Depression Qualifiers: Depression Type: major depressive disorder Major depression recurrence: recurrent Active/Remission status: remission status unspecified Qualified Code (s): F33.9 - Major depressive disorder, recurrent, unspecified (4) 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 Qualifiers: 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 type: type 2 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 care home insulin use: with care home use 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 complication status: with kidney complications 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 complication detail: with other kidney complication Qualified Code(s): E11.29 - Type 2 diabetes mellitus with other diabetic kidney complication; 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 transplanted heart: [place] heart Associated angina: without angina Qualified Code(s): I25.10 - Atherosclerotic heart disease of [place] coronary artery without angina pectoris (7) Hyperlipidemia Qualifiers: Hyperlipidemia type: unspecified Qualified Code(s): E78.5 - Hyperlipidemia, unspecified (8) Peripheral neuropathy Qualifiers: Peripheral neuropathy type: polyneuropathy, unspecified Qualified Code(s): G62.9 - Polyneuropathy, unspecified (9) Atrial fibrillation Qualifiers: Atrial fibrillation type: paroxysmal Qualified Code(s): I48.0 - Paroxysmal atrial fibrillation (11) BPH (benign prostatic hyperplasia) Qualifiers: Lower urinary tract symptom presence: unspecified whether lower urinary tract symptoms present Qualified Code(s): N40.0 - Benign prostatic hyperplasia without lower urinary tract symptoms
[2018-03-01] MEDS: Pantoprazole Inj 40 MG Vial IV.PUSH SCH (07:59)
[2018-03-01] MEDS: Chlorhexidine 0.12% Oral Kit 15 ML UDC OROPHARYNG SCH ×2 (07:59→20:53)
[2018-03-01] MEDS: Ascorbic Acid 500 MG Tablet PO SCH ×2 (08:00→20:54)
[2018-03-01] MEDS: Nystatin 100,000 UNITS/GM Powder 15 GM Bottle TOPICAL SCH ×2 (08:00→20:54)
[2018-03-01] MEDS: Senna/Docusate Sodium 8.6/50 MG Tablet PO SCH ×2 (08:00→20:54)
--- NOTE | 2018-03-01 09:30 | P.PNNP ---
Subjective Interval history: Patient is on the ventilator Physical Exam Vital signs: Vital Signs 02/28/18 10:13 02/28/18 11:36 02/28/18 12:00 Temperature 97.5 F L Pulse Rate 68 67 Respiratory Rate 17 17 15 Blood Pressure 102/49 L Pulse Oximetry 93 L 93 L 02/28/18 13:54 02/28/18 16:00 02/28/18 16:09 Temperature 98.4 F Pulse Rate 66 66 Respiratory Rate 15 15 16 Blood Pressure 102/51 L Pulse Oximetry 95 92 L 92 L 02/28/18 16:44 02/28/18 18:19 02/28/18 19:23 Temperature Pulse Rate 68 Respiratory Rate 19 18 Blood Pressure Pulse Oximetry 93 L 100 02/28/18 20:00 02/28/18 20:47 03/01/18 00:00 Temperature 97.7 F 98 F Pulse Rate 68 70 Respiratory Rate 18 18 18 Blood Pressure 124/60 124/70 Pulse Oximetry 95 93 L 95 03/01/18 00:07 03/01/18 04:00 03/01/18 04:40 Temperature 97.9 F Pulse Rate 71 70 69 Respiratory Rate 19 18 18 Blood Pressure 132/58 L Pulse Oximetry 95 95 03/01/18 04:41 03/01/18 08:30 03/01/18 08:32 Temperature Pulse Rate 69 Respiratory Rate 18 18 Blood Pressure Pulse Oximetry 95 96 96 Intake & Output 02/28/18 03/01/18 03/01/18 18:59 06:59 18:59 Intake Total 1352 / 1352 848 / 848 0 / 0 Output Total 900 / 900 600 / 600 Balance 452 / 452 248 / 248 0 / 0 Weight 162.3 kg Intake: IV 1352 / 1352 848 / 848 NS Inj 1,000 ML @ 84 mls/hr IV. 1252 / 1252 748 / 748 CONT .[id number] ANA Rx#:[id number] Zosyn 2.25 GM Premix 50 ML @ 100 / 100 100 / 100 100 mls/hr IV.SIG Q8H ANA Rx#: [id number] Oral 0 / 0 0 / 0 Output: Urine 600 / 600 Urine Amount (Catheter) 900 / 900 Indwelling Urethral Catheter 900 / 900 Other: Date of Last Bowel Movement 02/28/18 # Bowel Movements 1 Narrative: GENERAL: Well-nourished, well-developed intubated patient. SKIN: Warm and dry. HEAD: Normocephalic. EYES: No scleral icterus. No injection or drainage. NECK: Supple, intubated. CARDIOVASCULAR: S1-S2 irregular RESPIRATORY: Breath sounds equal bilaterally. No accessory muscle use. GASTROINTESTINAL: Abdomen soft, non-tender, nondistended. EXTREMITIES: Cold extremities poor circulation NEUROLOGICAL: Intubated - Urinary Catheter Management Indwelling Urethral Catheter Cath placed during this visit: yes, but has since been removed by the nurse Reason for continuing: Chronic Urinary Retention Insertion date: 02/26/18 Insertion time: 16:00 Removal date: 02/26/18 Removal time: 15:30 Assessment and Plan - Assessment (1) Acute renal failure Code(s): N17.9 - Acute kidney failure, unspecified Status: Acute (2) Chronic kidney disease Code(s): N18.9 - Chronic kidney disease, unspecified Status: Acute (3) Shock Code(s): R57.9 - Shock, unspecified Status: Acute (4) BMI 50.0-59.9, adult Code(s): Z68.43 - Body mass index (BMI) 50-59.9, adult Status: Chronic (5) 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 Code(s): E11.9 - Type 2 diabetes mellitus without complications Status: Chronic Qualifiers: 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 type: type 2 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 research and development scientist insulin use: with nursing home use 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 complication status: with kidney complications 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 complication detail: with other kidney complication Qualified Code(s): E11.29 - Type 2 diabetes mellitus with other diabetic kidney complication; 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
--- NOTE | 2018-03-01 10:36 | MB ---
cc: Abram Stanley MD DATE: 03/01/2018 HISTORY OF PRESENT ILLNESS: A 72-year-old man admitted on 02/26/[address] [facility] for change in mental status. He had a heart rate in the 30s. Blood pressure 120/60. He was given some atropine. He is normally conversant and talking, able to answer questions. He does arouse. He complains of some pain. He had a gradual decline in health according to his in the ER. He needed a chest tube because he apparently had a pleural effusion. In fact, CT of the chest showed bilateral pleural effusions. MEDICATIONS AT HOME: He is on: 1. Alfuzosin. 2. Amiodarone. 3. Amlodipine. 4. Atorvastatin. 5. Cymbalta 20 a day. 6. Lasix. 7. Gabapentin 600 t.i.d. 8. Insulin. 9. Thyroid medicine. 10. Namenda 5 at night. 11. Metoprolol. 12. Morphine 15 mg every 12 hours. 13. Multivitamin. 14. Zofran. 15. Olmesartan. 16. Xarelto 20 a day. ALLERGIES: DAPTOMYCIN AND SULFA. PAST MEDICAL HISTORY: History of obesity, depression, dementia, coronary artery disease, hypertension, hyperlipidemia, diabetes, atrial fibrillation, hypothyroidism, peripheral neuropathy, stage III-IV chronic kidney disease, chronic opiate use, anticoagulation. History of cardiac catheterization. FAMILY HISTORY: Positive for CAD and stroke. SOCIAL HISTORY: Not a smoker or drinker, lives in a group home. MEDICATIONS: 1. Tylenol 2. Catapres. 3. P.r.n. Benadryl. 4. Dopamine. 5. Cymbalta 20 a day. 6. Fentanyl. Although he has been off sedatives since yesterday morning. 7. He is on dialysis. 8. Synthroid. 9. Namenda 5 at night. 10. Morphine. 11. Vancomycin. PHYSICAL EXAMINATION: VITAL SIGNS: Initially his blood pressure was 80/50, has been as low as 74/60. Now it has come up to 130/60. 69, he has been afebrile since admission. HEART: There were no carotid bruits. Regular rhythm, I did not detect a murmur. Pupils are equal. ABDOMEN: He is basically obtunded with a very strong chest rub. He seemed to open his eyes. I thought he might have looked at me slightly. He seemed to move all of his extremities, the left lower extremity I did not see him move very well. Toes downgoing bilaterally. DTRs absent. He will not follow commands. Dr. Lopez in intensive care tells me that gave him some Mazicon yesterday, seemed to awake him but not follow commands. LABORATORY DATA: His initial white count was 8.8, it is up to 15, hematocrit is 25, platelet count 193. Hepatitis screen negative. UA large amount of leukocyte esterase, 76 white cells, some white cell clumps. His creatinine initially was 5.3, it is down to 3.8. His LFTs were up to 437 for the AST 277, for the ALT it has come down to 49/91 today. Ammonia level 16. CPK 185, albumin 2.3. TSH 5. ABG initially [id number], it has come up to [id number]. His coags were slightly elevated with the anticoagulation. In the past, his creatinine was 1.86 in 2011. B12 was normal in 2008. VINCENZO was negative in 2004 as well as an RPR. He had an MRI of his brain done, some small vessel disease, some sinus disease. Review of the films. He had an EEG done, it showed just some diffuse slowing, no seizure or asymmetry. His FLAIR images looked normal for his age. Diffusion image normal. Had a cervical spine MRI, it showed severe spinal stenosis C2-3. Review of those films, there appears to be some significant spinal stenosis at C2-C3 on the sagittal images, not so severe on the axial images. IMPRESSION: Metabolic encephalopathy. The hope is that he will slowly awaken as his medical condition improves. We will recheck his B12 and I will be following him with you in the hospital. I would recommend getting him anticoagulated if possible, with a history of atrial fibrillation, to prevent a stroke. I do not see that the spinal stenosis is that severe. My expectation is he would return to prior level of functioning. I would maintain him off sedatives. MD JERSEY Phillips/prashanth , 09:08 AM , 09:20 AM
--- NOTE | 2018-03-01 12:47 | P.DIET ---
Nutritional Evaluation Type of nutrition evaluation: initial Nutrition consult regarding: Tube Feeding Screening comments: 03/01 TF review Objective - Diagnosis multi organ failure, hyperkalemia, AMS - Objective Body Mass Index: 48.5 % IBW: 201 (IBW = 178lb) Body Weight Used for Calculations: IBW Energy Needs - Lower Range (kCal/kg): 25 Energy Needs - Upper Range (kCal/kg): 30 Lower Limit kCal/kg (kCals): 2,023 Upper Limit kCal/kg (kCals): 2,427 Lower Limit Protein Factor (Grams per Kg): 1.2 Upper Limit Protein Factor (Grams per Kg): 1.5 Lower Protein Needs (Protein): 97 Upper Protein Needs (Protein): 121 Dietitian Reviewed in Medical Record: Current diet, Curent medications, Intake & Output, Labs, Medical history Diet Order: TF'ing Objective Comments: PMH: acute renal failure, clostridium, difficile carrier, s/p L foot surgery MedS: vit C, Synthroid, MvI, zosyn, zinc Labs: BUN 42, Cr 3.75, GFR 16, POc 125 157 153 Skin: multiple pressure injuries (midline buttocks, L heel, penis) [facility] 02/28 Assessment Assessment: Pt receiving dialysis today 03/01. Pt on Nepro 1.8 @ 55mL/hr continuous per MD. RD to recommend Nepro 1.8 @ 60mL x 22 hrs (d/t Synthroid dosing) to provide 2376kcal, 107g of protein, and 960mL of free water to best meet pts nutritional needs. Wound notes reviewed, will continue to monitor wound status. Monitor TF tolerance and renal labs. Labs reviewed, dietitian following. Recommendations: 1. RD to recommend Nepro 1.8 @ 60mL x 22 hrs (d/t Synthroid dosing) to best meet pts nutritional needs 2. Wound notes reviewed, will continue to monitor wound status 3. Monitor TF tolerance and renal labs 4. Dietitian following Dietitian to Monitor: Lab values, Renal labs, Intake & Output, Tube feeding tolerance, Wound/skin status, Medical course
[2018-03-01] MEDS: Vancomycin Inj 1,000 MG in Sodium Chlor 0.9% Inj 250 ML IV.SIG SCH (14:41)
[2018-03-01] MEDS: Heparin 10,000 UNITS/10 ML Vial (for IV use) OTHER PRN (14:42)
--- NOTE | 2018-03-01 15:10 | P.PNWCN ---
Wound Care Nurse Consult Description: Patient seen for follow up and third attempt to see sacral area Communicated with: HIMA PRETTY and Doctor Aris. Recommendation: Please cleanse buttock area with remedy barrier cloths and pat dry. Apply Cavilon skin barrier film to Deep tissue injury over sacral area BID and PRN. Leave open to air. Turn patient from L side to R side every 2 hours and PRN for comfort and offloading of pressure from familia prominences. So not use cotton pads on low airloss bed.Use ultra sorb pad for incontinence management. Wound/Pressure Injury - Wound Sacrum Wound Staging: DTI Wound Assessment: Ongoing Wound Type: Pressure Injury Is This a Chronic Wound: No Requested from Provider a Wound Care Consult: Yes (Wound care saw patient today) Length (cm): 2 (~2cm) Width (cm): 2 (~2cm) Depth (cm): 0 (non-blanchable purple discoloration to intact skin) Surrounding Tissue Appearance: Blanched/Dull, [place] Surrounding Tissue Temperature: Cool Drainage Amount: None Dressing Status: Open to Air Topical: (Cavilon skin barrier film spray) - Additional Information Patient seen on 507 for third attempt to see sacral area for wound management. Patient was positioned with the total assistance of HIMA PRETTY, typewriter operator automatic and WHALE FISHERMAN to the L side to reveal Sacral non blanchable purple discoloration to intact skin, indicating Deep tissue injury. Patient is also noted with small amount of feces on ultra sorb pad. Patient was cleansed with Remedy bath cloths and patted dry. Applied Cavilon skin barrier film over DTI to sacral area and left open to air. Patient was positioned off bottom and is noted laying on K4 bariatric bed from [facility].
--- NOTE | 2018-03-01 20:18 | MB ---
cc: Joao Shepherd MD DATE: 03/01/2018 REASON FOR CONSULTATION: Respiratory failure. HISTORY OF PRESENT ILLNESS: Mr. Lr is a 72-year-old male with multiple medical problems, who [facility] with altered mental status and severe bradycardia, hydrated, placed on pressor therapy, intubated, mechanically ventilated for respiratory failure and unable to provide any history. The history was obtained from his record. PAST MEDICAL HISTORY: 1. 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. 2. Coronary artery disease. 3. Obstructive sleep apnea. 4. Hypertension. 5. Hyperlipidemia. 6. Atrial fibrillation. 7. Chronic narcotic use. 8. BPH. 9. Chronic normocytic anemia 10. Mood disorder, namely depression. CURRENT MEDICATIONS: Include: 1. IV albumin. 2. Nebulized albuterol. 3. Dopamine sedation as needed while on the ventilator. 4. Gentamicin. 5. Hydralazine. 6. Marinol. 7. Namenda. 8. Levophed. 9. Pantoprazole. 10. Piperacillin/tazobactam. ALLERGIES: 1. DAPTOMYCIN. 2. SULFA. FAMILY HISTORY: Noncontributory. REVIEW OF SYSTEMS: A 12-point review of systems as per HPI and past history, otherwise not obtainable. The patient on ventilatory support, sedated. LABORATORY DATA: White count 15,000, hemoglobin 8.4, hematocrit 25, platelets 193,000. INR 1.5. ABG 02/28/2018 pH 7.37, pCO2 of 45, pO2 of 71. Sodium 139, potassium 4.1, BUN 42, creatinine 3.7. DIAGNOSTIC DATA: Chest CT upon presentation with bilateral pleural effusions, moderate on the right, small on the left, associated atelectatic change. Chest x-ray repeated 02/28/2018 with improved density on the right lung. Questionable effusion on the left. IMPRESSION: 1. Acute respiratory failure. 2. Shock, probably septic. 3. Obstructive sleep apnea. 4. 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. 5. Hypertension. 6. Hyperlipidemia. 7. Atrial fibrillation. PLAN: The patient is with significant hypotension on pressor therapy at present. Because of the altered mental status as well as the hypotension, very well be related to underlying infectious process, he will be maintained on ventilatory support. Antibiotic therapy has been instituted when appropriately so. Pulmonary toilet is being undertaken. We will follow his course along with you and depending on progress, we will proceed further. The patient is not weanable at this point. He will need to be maintained on ventilatory support and his outlook overall is quite poor given his multiple medical problems as outlined above. I do thank you for asking me to partake in Mr. Lr's care. Joao Shepherd MD WWW/pankaj , 06:20 PM , 06:31 PM
[2018-03-02] MEDS: Sod Chloride 0.9% Inj 1,000 ML IV.CONT SCH ×3 (01:38→15:22)
[2018-03-02] MEDS: Oral Hygiene Kit OROPHARYNG SCH ×4 (03:26→23:49)
[2018-03-02] MEDS: Chlorhexidine Gluconate 2% 1 Pack (2 Cloths) TOPICAL SCH (03:26)
[2018-03-02 05:21] LABS: Baso % (Auto) 0.2 % (0.0-2.0); Eos # (Auto) 0.1 th/mm3 (0.0-0.4); Eos % (Auto) 0.6 % (0.0-4.0); Hematocrit 27.3 % (39.0-51.0); Hemoglobin 9.1 gm/dL (13.0-17.0); Lymph # (Auto) 0.7 th/mm3 (1.0-4.8); Lymph % (Auto) 5.2 % (9.0-44.0); Mean Corpuscular HGB Conc 33.2 % (32.0-36.0); Mean Corpuscular Hemoglobin 28.6 pg (27.0-34.0); Mean Platelet Volume 8.5 fL (7.0-11.0); Mono # (Auto) 0.9 th/mm3 (0.0-0.9); Mono % (Auto) 6.5 % (0.0-8.0); Neut # (Auto) 11.8 th/mm3 (1.8-7.7); Neut % (Auto) 87.5 % (16.0-70.0); Platelet Count 220 th/mm3 (150-450); Red Blood Count 3.17 mil/mm3 (4.50-5.90); Red Cell Distribution Width 15.1 % (11.6-17.2); White Blood Count 13.5 th/mm3 (4.0-11.0)
[2018-03-02] MEDS: Levothyroxine 50 MCG Tablet PO SCH (05:25)
[2018-03-02] MEDS: Piperacil/Tazo 2.25 GM Premix 50 ML IV.SIG SCH ×3 (05:25→21:08)
[2018-03-02 05:49] LABS: Alanine Aminotransferase 82 U/L (12-78); Albumin 2.3 g/dL (3.4-5.0); Alkaline Phosphatase 343 U/L (45-117); Anion Gap 10 meq/L (5-15); Aspartate Aminotransferase 39 U/L (15-37); Blood Urea Nitrogen 28 mg/dL (7-18); Calcium 8.2 mg/dL (8.5-10.1); Carbon Dioxide 27.1 meq/L (21.0-32.0); Chloride 104 meq/L (98-107); Glomerular Filtration Rate 23 mL/min (>89); Glucose,Random 164 mg/dL (74-106); Phosphorus 3.1 mg/dL (2.5-4.9); Potassium 3.6 meq/L (3.5-5.1); Sodium 141 meq/L (136-145); Total Protein 6.1 g/dL (6.4-8.2)
[2018-03-02] MEDS: Gentamicin 0.3% Opth Drops 5 ML Bottle EACH EYE SCH ×3 (06:05→23:48)
[2018-03-02] MEDS: Artificial Tears Opth Drops 15 ML Bottle EACH EYE SCH ×3 (06:05→23:48)
--- NOTE | 2018-03-02 07:45 | P.PNNEU ---
Subjective Active Medications: Active Medications Acetaminophen (Tylenol) 650 mg PO Q6H PRN PRN Reason: FEVER Acetaminophen (Tylenol) 650 mg PO UNSCH PRN PRN Reason: SEE LABEL COMMENTS Al Hydroxide/Mg Hydroxide (Milk Of Freda Arriaga) 30 ml PO Q12H PRN PRN Reason: Mild Constipation Albuterol (Albuterol Neb (Prn)) 2.5 mg NEB Q2HR NEB PRN PRN Reason: SHORTNESS OF BREATH/WHEEZING Albuterol (Duoneb Neb (Zak)) 1 ampul NEB Q4HR NEB [facility] Last Admin: 03/02/18 04:11 Dose: 1 ampul Artificial Tears (Tears Naturale Opth Drops) 1 drop EACH EYE Q8H [facility] Last Admin: 03/02/18 06:05 Dose: 1 drop Ascorbic Acid (Vitamin C) 500 mg PO BID [facility] Last Admin: 03/01/18 20:54 Dose: 500 mg Bisacodyl (Dulcolax Supp) 10 mg RECTAL DAILY PRN PRN Reason: SEVERE CONSITIPATION Chlorhexidine Gluconate (Chlorhexidine 2% Cloth) 3 pack TOPICAL DAILY@0400 [facility] Stop: 03/04/18 03:59 Last Admin: 03/02/18 03:26 Dose: 3 pack Chlorhexidine Gluconate (Chlorhexidine 2% Cloth) 3 pack TOPICAL DAILY@0400 PRN PRN Reason: Extra cloth needed Stop: 03/04/18 03:59 Chlorhexidine Gluconate (Peridex 0.12% Oral Kit) 15 ml OROPHARYNG BID@0800, 2000 [facility] Last Admin: 03/01/18 20:53 Dose: 15 ml Clonidine HCl (Catapres) 0.1 mg PO UNSCH PRN PRN Reason: SEE LABEL COMMENTS Diphenhydramine HCl (Benadryl) 25 mg PO UNSCH PRN PRN Reason: SEE LABEL COMMENTS Gelatin (Gelfoam 12 Mm/7 Mm Topical) 1 foam TOPICAL PRN PRN PRN Reason: help stop bleeding from site Gentamicin Sulfate (Gentamicin Inj) 20 mg OTHER WITH DIALYSIS PRN PRN Reason: Dwell Gentamycin Lock Last Admin: 03/01/18 14:42 Dose: 20 mg Gentamicin Sulfate (Gentamicin 0.3% Opth Drops) 1 drop EACH EYE Q8H [facility] Stop: 03/04/18 14:59 Last Admin: 03/02/18 06:05 Dose: 1 drop Heparin Sodium (Porcine) (Heparin Inj) 1,000 units OTHER WITH DIALYSIS PRN PRN Reason: Dwell Heparin to Fill Catheter Last Admin: 03/01/18 14:42 Dose: 1,000 units Heparin Sodium (Porcine) (Heparin Inj) 8,000 units OTHER WITH DIALYSIS PRN PRN Reason: for machine prime Hydralazine HCl (Apresoline Inj) 10 mg IV.PUSH Q1H PRN PRN Reason: SYS BP GREATER THAN 170 MMHG Norepinephrine Bitartrate (Levophed-Dextrose 4 Mg/250 Ml Drip) 4 mg in 250 mls @ 7.5 mls/hr IV.SIG TITRATE PRN; Protocol PRN Reason: Per Protocol Last Titration: 02/27/18 14:00 Dose: 0 mcg/min, 0 mls/hr Sodium Chloride (Ns Inj) 1,000 mls @ 84 mls/hr IV.CONT .[id number] [facility] Last Admin: 03/02/18 05:25 Dose: 84 mls/hr Piperacillin/Tazobactam/Dextrose (Zosyn 2.25 Gm Premix) 50 mls @ 100 mls/hr IV.SIG Q8H [facility] Last Infusion: 03/02/18 06:05 Dose: Infused Fentanyl (Fentanyl 10 Mcg/Ml Premix Drip) 2,500 mcg in 250 mls @ 5 mls/hr IV.SIG TITRATE PRN; Protocol PRN Reason: Per Protocol Last Titration: 02/28/18 08:00 Dose: 0 mcg/hr, 0 mls/hr Propofol (Diprivan 1000 Mg/100 Ml Inj) 1,000 mg in 100 mls @ 5.171 mls/hr IV.CONT TITRATE PRN; Protocol PRN Reason: Per Protocol Dopamine HCl/Dextrose (Dopamine 800 Mg/500 Ml Premix) 800 mg in 500 mls @ 19.391 mls/hr IV.CONT TITRATE PRN; Protocol PRN Reason: SEE PROTOCOL Last Titration: 02/28/18 15:00 Dose: 0 mcg/kg/min, 0 mls/hr Midazolam HCl (Versed Inj) 100 mg in 100 mls @ 2 mls/hr IV.CONT TITRATE PRN; Protocol PRN Reason: See protocol Last Titration: 02/28/18 08:00 Dose: 0 mg/hr, 0 mls/hr Albumin Human (Flexbumin 25% Inj) 100 mls @ 60 mls/hr IV.SIG WITH DIALYSIS PRN PRN Reason: hypotension / volume replace Last Infusion: 02/27/18 11:35 Dose: Infused Sodium Chloride (Ns Inj) 1,000 mls @ 0 mls/hr OTHER .Q0M PRN PRN Reason: for prime and rinse back Sodium Chloride (Ns Inj) 1,000 mls @ 200 mls/hr OTHER .Q5H PRN PRN Reason: for dialyzer flush PRN Sodium Chloride (Ns Inj) 1,000 mls @ 0 mls/hr IV.CONT .Q0M PRN PRN Reason: hypotension / volume replace Vancomycin HCl 1,000 mg/ (Sodium Chloride) 250 mls @ 250 mls/hr IV.SIG WITH DIALYSIS [facility] Last Infusion: 03/01/18 17:40 Dose: Infused Dexmedetomidine HCl 200 mcg/ (Sodium Chloride) 50 mls @ 7.66 mls/hr IV.CONT TITRATE PRN; Protocol PRN Reason: Per Protocol Lactulose (Lactulose Liq) 30 ml PO DAILY PRN PRN Reason: SEVERE CONSITIPATION Levothyroxine Sodium (Synthroid) 50 mcg PO DAILY@0600 [facility] Last Admin: 03/02/18 05:25 Dose: 50 mcg Mannitol (Mannitol Inj) 12.5 gm IV.PUSH UNSCH PRN PRN Reason: hypotension / volume replace Memantine (Namenda) 5 mg PO QPM [facility] Last Admin: 03/01/18 18:10 Dose: 5 mg Miscellaneous Medication () 1 each OROPHARYNG 0000,0400,1200,1600 [facility] Last Admin: 03/02/18 03:26 Dose: 1 each Multivitamins (Theragran) 1 tab PO DAILY [facility] Last Admin: 03/01/18 08:00 Dose: 1 tab Nitroglycerin (Nitro-Bid 2% Oint) 2 inch TOPICAL Q6HR PRN PRN Reason: SYS BP GREATER THAN 170 MMHG Nitroglycerin (Nitrostat Sl) 0.4 mg SL Q5M PRN PRN Reason: CHEST PAIN Nystatin (Mycostatin Powder) 1 applicatio TOPICAL BID [facility] Last Admin: 03/01/18 20:54 Dose: 1 applicatio Ondansetron HCl (Zofran Inj) 4 mg IV.PUSH Q6H PRN PRN Reason: NAUSEA OR VOMITING Ondansetron HCl (Zofran Inj) 4 mg IV.PUSH UNSCH PRN PRN Reason: NAUSEA OR VOMITING Pantoprazole Sodium (Protonix Inj) 40 mg IV.PUSH DAILY [facility] Last Admin: 03/01/18 07:59 Dose: 40 mg Senna/Docusate Sodium (Kim-Colace) 1 tab PO BID [facility] Last Admin: 03/01/18 20:54 Dose: 1 tab Sennosides (Senokot) 17.2 mg PO Q12H PRN PRN Reason: Moderate Constipation Sodium Chloride (Ns Flush) 2 ml IV.FLUSH BID [facility] Last Admin: 03/01/18 20:54 Dose: 2 ml Sodium Chloride (Ns Flush) 2 ml IV.FLUSH PRN PRN PRN Reason: FLUSH AFTER USING IV ACCESS Sodium Chloride (Ns Flush) 0 ml IV.FLUSH DAILY [facility] Last Admin: 03/01/18 07:59 Dose: 2 ml Sodium Chloride (Ns Flush) 0 ml IV.FLUSH PRN PRN PRN Reason: FLUSH AFTER USING IV ACCESS Sodium Chloride (Ns Flush) 5 ml IV.FLUSH PRN PRN PRN Reason: flush each lumen during HD Sterile Water (Free Water) 0 ml G-TUBE Q8HR [facility] Last Admin: 03/02/18 05:25 Dose: 100 ml Terbutaline Sulfate (Brethine Inj) 1 mg SQ UNSCH PRN PRN Reason: For Extravasation Terbutaline Sulfate (Brethine Inj) 1 mg SQ ONCE PRN PRN Reason: Extravasation Zinc Sulfate (Zinc-220) 220 mg PO DAILY [facility] Last Admin: 03/01/18 07:59 Dose: 220 mg Allergies/Adverse Reactions: Allergies Allergy/AdvReac Type Severity Reaction Status Date / Time daptomycin Allergy Severe Unverified 11/02/16 23:29 Sulfa (Sulfonamide Allergy Mild RASH Unverified 11/02/16 23:29 Antibiotics) Physical Exam Vital signs: Vital Signs 03/01/18 08:00 03/01/18 08:06 03/01/18 08:30 Temperature Pulse Rate 72 72 69 Respiratory Rate 10 L 12 18 Blood Pressure 130/82 130/82 Pulse Oximetry 96 96 96 03/01/18 08:32 03/01/18 09:00 03/01/18 11:40 Temperature Pulse Rate 69 72 Respiratory Rate 18 Blood Pressure Pulse Oximetry 96 03/01/18 11:42 03/01/18 12:00 03/01/18 15:51 Temperature 98.0 F Pulse Rate 72 74 Respiratory Rate 16 2 L 13 Blood Pressure 119/55 L Pulse Oximetry 98 98 03/01/18 15:52 03/01/18 16:00 03/01/18 19:32 Temperature 98.0 F Pulse Rate 74 92 H Respiratory Rate 13 10 L 19 Blood Pressure 115/54 L Pulse Oximetry 99 98 03/01/18 19:33 03/01/18 20:00 03/01/18 22:00 Temperature 97.4 F L Pulse Rate 83 84 Respiratory Rate 18 18 Blood Pressure 130/60 Pulse Oximetry 98 96 03/02/18 00:00 03/02/18 00:06 03/02/18 00:07 Temperature 98 F Pulse Rate 82 87 Respiratory Rate 18 18 18 Blood Pressure 128/82 Pulse Oximetry 97 98 03/02/18 02:00 03/02/18 04:00 03/02/18 04:13 Temperature 98.7 F Pulse Rate 90 80 80 Respiratory Rate 18 18 Blood Pressure 129/59 L Pulse Oximetry 98 03/02/18 04:14 03/02/18 06:00 Temperature Pulse Rate 79 Respiratory Rate 18 Blood Pressure Pulse Oximetry 98 Intake & Output 03/01/18 03/02/18 03/02/18 18:59 06:59 18:59 Intake Total 1250 / 1250 1828 / 1828 Output Total 3500 / 3500 1185 / 1185 Balance -2250 / -2250 643 / 643 Weight 160 kg Intake: IV 1250 / 1250 1150 / 1150 NS Inj 1,000 ML @ 84 mls/hr IV. 1000 / 1000 1000 / 1000 CONT .[id number] ZAK Rx#:[id number] Zosyn 2.25 GM Premix 50 ML @ 150 / 150 100 mls/hr IV.SIG Q8H ZAK Rx#: [id number] Vancomycin Inj 1,000 MG In NS 250 / 250 Inj 250 ML @ 250 mls/hr IV.SIG WITH DIALYSIS ZAK Rx#:[id number] Oral 0 / 0 0 / 0 Tube Feeding 478 / 478 Water Bolus Amount 200 / 200 Output: Urine 650 / 650 Hemodialysis Amount 3500 / 3500 Urine Amount (Catheter) 535 / 535 Indwelling Urethral Catheter 535 / 535 Other: Date of Last Bowel Movement 03/01/18 03/01/18 # Bowel Movements 1 Narrative: more alert lookds at me not folow commands - Urinary Catheter Management Indwelling Urethral Catheter Cath placed during this visit: yes, but has since been removed by the nurse Reason for continuing: Chronic Urinary Retention Insertion date: 02/26/18 Insertion time: 16:00 Removal date: 02/26/18 Removal time: 15:30 Objective Laboratory Results - last 24 hr 03/01/18 03/01/18 03/01/18 02:00 11:16 18:13 WBC RBC Hgb Hct MCV MCH MCHC RDW Plt Count MPV Neut % (Auto) Lymph % (Auto) Carbon % (Auto) Eos % (Auto) Baso % (Auto) Neut # (Auto) Lymph # (Auto) Carbon # (Auto) Eos # (Auto) Baso # (Auto) WBC Differential Differential Comment Sodium Potassium Chloride Carbon Dioxide Anion Gap BUN Creatinine Estimated GFR POC Glucose 153 H 138 H Random Glucose Calcium Phosphorus Magnesium Total Bilirubin AST ALT Alkaline Phosphatase Total Protein Albumin Vitamin B12 682 03/01/18 03/02/18 03/02/18 23:33 04:30 04:30 WBC 13.5 H RBC 3.17 L Hgb 9.1 L Hct 27.3 L MCV 86.0 MCH 28.6 MCHC 33.2 RDW 15.1 Plt Count 220 MPV 8.5 Neut % (Auto) 87.5 H Lymph % (Auto) 5.2 L Carbon % (Auto) 6.5 Eos % (Auto) 0.6 Baso % (Auto) 0.2 Neut # (Auto) 11.8 H Lymph # (Auto) 0.7 L Carbon # (Auto) 0.9 Eos # (Auto) 0.1 Baso # (Auto) 0.0 WBC Differential . Differential Comment Auto diff final Sodium 141 Potassium 3.6 Chloride 104 Carbon Dioxide 27.1 Anion Gap 10 BUN 28 H Creatinine 2.77 H Estimated GFR 23 L POC Glucose 164 H Random Glucose 164 H Calcium 8.2 L Phosphorus 3.1 D Magnesium 2.0 Total Bilirubin 0.5 AST 39 H ALT 82 H Alkaline Phosphatase 343 H Total Protein 6.1 L Albumin 2.3 L Vitamin B12 Microbiology 02/27/18 23:00 Gram Stain - Final Sputum - Endotracheal Sputum Culture - Preliminary Moderate growth normal respiratory amanda at 24 hours 02/26/18 12:50 Aerobic Blood Culture - Preliminary Blood - Line No growth in 3 days Anaerobic Blood Culture - Preliminary No growth in 3 days 02/26/18 12:55 Aerobic Blood Culture - Preliminary Blood - Line No growth in 3 days Anaerobic Blood Culture - Preliminary No growth in 3 days Review/Management - Review/Management Plan: imp improved neuro will follow i suspect will do ok neurowise b12 nl Procedures - Arterial Line Size (Gauge): 20
[2018-03-02] MEDS: Chlorhexidine 0.12% Oral Kit 15 ML UDC OROPHARYNG SCH ×2 (08:26→21:09)
[2018-03-02] MEDS: Senna/Docusate Sodium 8.6/50 MG Tablet PO SCH ×2 (08:27→21:07)
[2018-03-02] MEDS: Nystatin 100,000 UNITS/GM Powder 15 GM Bottle TOPICAL SCH ×2 (08:27→21:09)
[2018-03-02] MEDS: Ascorbic Acid 500 MG Tablet PO SCH ×2 (08:27→21:08)
[2018-03-02] MEDS: Pantoprazole Inj 40 MG Vial IV.PUSH SCH (08:27)
--- NOTE | 2018-03-02 10:24 | P.PNCC ---
Subjective Subjective Remarks/Hospital Course: This is a 72-year-old male. Admission 02/26/2018. Past medical includes morbid obesity, depression, dementia, coronary artery disease, hypertension, hyperlipidemia, diabetes mellitus, atrial fibrillation currently rate controlled, hypothyroidism, peripheral neuropathy, chronic kidney disease stage III-IV, chronic opiate use and chronic anticoagulation with rivaroxaban. Patient is from the [facility] re[facility]. He was originally sent to [facility] emergency department the chief diagnosis of acute altered mental status since yesterday. EMS was called and found the patient have initial heart rate in the 30s with a blood pressure 120/60 manually, they give a half a milligram of atropine which brought his heart rate into the 40s and his blood pressure 96/72. His initial GCS on scene was 12, according to EMS the [facility] reported that normally he is conversant and able to answer questions appropriately. Upon arrival, a central line and arterial line replaced in the right femoral vein/artery is appropriate and received 1 L normal saline. Currently on norepinephrine drip for mean arterial pressure greater than 65. Patient had normal white blood cell count. Potassium 7 with peaked T waves. Patient received D50, insulin and calcium chloride. Nephrology was consulted and recommended hemodialysis. Patient has scans of the brain, chest, abdomen pelvis pain-free chest x-ray revealed possible right pleural effusion versus infiltrate with aspiration. Patient still quite confused however is arousable and will follow commands 02/27: Intubated yesterday with sonorous breath sounds worsening altered mental status on arrival to floor. A right IJ hemodialysis catheter was placed in place and received emergent hemodialysis per potassium currently 5.0. Will attempt thoracentesis today to remove right pleural effusion and possible extubation afterwards. If not, will initiate tube feeding today. 02/28: -1500 cc cloudy yellow fluid removed with right-sided thoracentesis yesterday. Appears exudative by light's criteria. Attempting CPAP trials today with attempt extubate. -2500 cc with hemodialysis yesterday.. 03/01: Afebrile. MRI brain yesterday evening no acute findings. EEG revealed mild slowing but no epileptiform activity. MRI C-spine however did reveal C2/C ventral cord disc at left thickening. Thecal sac 4 mm. Patient is moving all 4 extremities and is more arousable today. Midazolam drip off since yesterday morning. SUBJECTIVE: 03/02: Resting in bed. More arousable today. Looks like to when he states his name on both sides. Weakly squeezes hands. Afebrile. Objective Vital Signs / I&O: Vital Signs 03/01/18 11:40 03/01/18 11:42 03/01/18 12:00 Temperature 98.0 F Pulse Rate 72 72 Respiratory Rate 18 16 2 L Blood Pressure 119/55 L Pulse Oximetry 98 98 03/01/18 15:51 03/01/18 15:52 03/01/18 16:00 Temperature 98.0 F Pulse Rate 74 74 Respiratory Rate 13 13 10 L Blood Pressure 115/54 L Pulse Oximetry 99 98 03/01/18 19:32 03/01/18 19:33 03/01/18 20:00 Temperature 97.4 F L Pulse Rate 92 H 83 Respiratory Rate 19 18 18 Blood Pressure 130/60 Pulse Oximetry 98 96 03/01/18 22:00 03/02/18 00:00 03/02/18 00:06 Temperature 98 F Pulse Rate 84 82 87 Respiratory Rate 18 18 Blood Pressure 128/82 Pulse Oximetry 97 03/02/18 00:07 03/02/18 02:00 03/02/18 04:00 Temperature 98.7 F Pulse Rate 90 80 Respiratory Rate 18 18 Blood Pressure 129/59 L Pulse Oximetry 98 98 03/02/18 04:13 03/02/18 04:14 03/02/18 06:00 Temperature Pulse Rate 80 79 Respiratory Rate 18 18 Blood Pressure Pulse Oximetry 98 03/02/18 08:22 03/02/18 08:23 Temperature Pulse Rate 79 Respiratory Rate 17 17 Blood Pressure Pulse Oximetry 99 Intake & Output 03/01/18 03/02/18 03/02/18 18:59 06:59 18:59 Intake Total 1250 / 1250 1828 / 1828 Output Total 3500 / 3500 1185 / 1185 Balance -2250 / -2250 643 / 643 Weight 160 kg Intake: IV 1250 / 1250 1150 / 1150 NS Inj 1,000 ML @ 84 mls/hr IV. 1000 / 1000 1000 / 1000 CONT .[id number] ANA Rx#:[id number] Zosyn 2.25 GM Premix 50 ML @ 150 / 150 100 mls/hr IV.SIG Q8H ANA Rx#: [id number] Vancomycin Inj 1,000 MG In NS 250 / 250 Inj 250 ML @ 250 mls/hr IV.SIG WITH DIALYSIS ANA Rx#:[id number] Oral 0 / 0 0 / 0 Tube Feeding 478 / 478 Water Bolus Amount 200 / 200 Output: Urine 650 / 650 Hemodialysis Amount 3500 / 3500 Urine Amount (Catheter) 535 / 535 Indwelling Urethral Catheter 535 / 535 Other: Date of Last Bowel Movement 03/01/18 03/01/18 # Bowel Movements 1 Result Diagrams: 03/02/18 04:30 03/02/18 04:30 Other Results: Microbiology 02/27/18 23:00 Sputum - Endotracheal Gram Stain - Final 02/27/18 23:00 Sputum - Endotracheal Sputum Culture - Final Capnocytophaga species 02/26/18 12:50 Blood - Line Aerobic Blood Culture - Preliminary No growth in 3 days 02/26/18 12:50 Blood - Line Anaerobic Blood Culture - Preliminary No growth in 3 days 02/26/18 12:55 Blood - Line Aerobic Blood Culture - Preliminary No growth in 3 days 02/26/18 12:55 Blood - Line Anaerobic Blood Culture - Preliminary No growth in 3 days 02/26/18 16:00 Catheterized Urine Urine Culture - Final No growth in 48 hours 02/26/18 12:50 Clean Catch Urine Urine Culture - Final No growth in 48 hours Imaging: Chest CT 02/26/18 00:00 CONCLUSION: 1. Bilateral pleural effusions being moderate on the right and mild on the left. 2. Suspected right lower lobe atelectasis likely from the effusion versus consolidation. 3. Milder consolidation or atelectasis at the left base. 4. Compression deformity of the T4 vertebral body. 5. Edema in the soft tissues being asymmetric and worse on the right. Chest X-Ray 02/26/18 00:00 CONCLUSION: Bibasilar areas of atelectasis, consolidation and/or effusion being worse on the right. ET tube, NG tube and right internal jugular central line are well placed. Venous Doppler Study 02/26/18 00:00 CONCLUSION: No venous thrombosis is identified within either lower extremity. Chest X-Ray 02/26/18 10:40 CONCLUSION: Diffuse density throughout the right lung which may represent a pleural effusion with underlying airspace disease. Moderate cardiomegaly Advanced arthropathy of the shoulder joints. Abdomen/Pelvis CT 02/26/18 11:52 CONCLUSION: 1. Limited study secondary to heterogeneity throughout the exam likely secondary to body habitus. 2. Heterogeneity to the liver with a possible 5 cm mass in the lateral segment the left lobe of the liver. This could be further evaluated with a better contrast-enhanced CT or MRI examination the future. 3. Suspected anasarca being worse on the right. Head CT 02/26/18 11:52 CONCLUSION: 1. No acute abnormality. 2. Mild cortical atrophy. . Thoracentesis CT 02/27/18 00:00 CONCLUSION: 1. Uncomplicated CT-guided thoracentesis. Chest X-Ray 02/28/18 06:00 CONCLUSION: Decreased right lung opacity. Persistent diffuse hazy left lung opacity with likely superimposed parenchymal opacity and pleural effusion. Cervical Spine MRI 02/28/18 14:24 CONCLUSION: 1. Multilevel protrusions causing severe canal stenosis at C2-3. 2. Mild canal stenosis at C3-4 and C7-T1. 3. Moderate canal stenosis at C4-5, C5-6 and 6 7 levels. Head MRI 02/28/18 14:24 CONCLUSION: 1. No acute hemorrhage, mass or evidence of infarction. 2. Atrophy and chronic small vessel ischemic change. 3. Mucosal thickening and small air-fluid levels in the sphenoid sinuses and ethmoidal air cells which could indicate acute sinusitis. Chest X-Ray 03/01/18 00:01 CONCLUSION: More symmetric, bilateral pulmonary opacities again seen likely representing a combination of parenchymal opacity and pleural effusion. The opacity has increased on the right and is unchanged on the left. Objective Remarks: GENERAL: 72-year-old male currently orotracheally intubated SKIN: Warm and dry. Chronic venous stasis bilateral lower extremities HEAD: Atraumatic. Normocephalic. EYES: Pupils equal and round. No scleral icterus. No injection or drainage. ENT: No nasal bleeding or discharge. Mucous membranes pink and moist. NECK: Trachea midline. No JVD. Right IJ hemodialysis catheter is clean dry and intact CARDIOVASCULAR: Regular rate and rhythm. S1, S2 no S4. RESPIRATORY: Minutes breath sounds due to body habitus. No wheezing appreciated.. GASTROINTESTINAL: Abdomen soft, non-tender, obese with large pannus.. MUSCULOSKELETAL: Extremities with trace to 1+ bilateral lower extremity edema. NEUROLOGICAL: Sedated on the ventilator. Currently midazolam and fentanyl drips. Assessment and Plan - Problem List (1) Depression Code(s): F32.9 - Major depressive disorder, single episode, unspecified Status : Chronic (2) Obstructive sleep apnea Code(s): G47.33 - Obstructive sleep apnea (adult) (pediatric) Status: Chronic (3) BMI 50.0-59.9, adult Code(s): Z68.43 - Body mass index (BMI) 50-59.9, adult Status: Chronic (4) 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 Code(s): E11.9 - Type 2 diabetes mellitus without complications Status: Chronic (5) Coronary artery disease Code(s): I25.10 - Atherosclerotic heart disease of [place] coronary artery without angina pectoris Status: Chronic (6) History of essential hypertension Code(s): Z86.79 - Personal history of other diseases of the circulatory system Status: Chronic (7) Hyperlipidemia Code(s): E78.5 - Hyperlipidemia, unspecified Status: Chronic (8) Peripheral neuropathy Code(s): G62.9 - Polyneuropathy, unspecified Status: Chronic (9) Atrial fibrillation Code(s): I48.91 - Unspecified atrial fibrillation Status: Chronic (10) Chronic narcotic use Code(s): F11.90 - Opioid use, unspecified, uncomplicated Status: Chronic (11) BPH (benign prostatic hyperplasia) Code(s): N40.0 - Benign prostatic hyperplasia without lower urinary tract symptoms Status: Chronic (12) Hyponatremia Code(s): E87.1 - Hypo-osmolality and hyponatremia Status: Acute (13) Normocytic anemia Code(s): D64.9 - Anemia, unspecified Status: Acute (14) Acute hyperkalemia Code(s): E87.5 - Hyperkalemia Status: Acute (15) Acute hypotension Code(s): I95.9 - Hypotension, unspecified Status: Acute (16) Shock Code(s): R57.9 - Shock, unspecified Status: Acute (17) Elevated transaminase level Code(s): R74.0 - Nonspecific elevation of levels of transaminase and lactic acid dehydrogenase [LDH] Status: Acute (18) Elevated TSH Code(s): R79.89 - Other specified abnormal findings of blood chemistry Status : Acute (19) Elevated alkaline phosphatase level Code(s): R74.8 - Abnormal levels of other serum enzymes Status: Acute (20) Hypoalbuminemia Code(s): E88.09 - Other disorders of plasma-protein metabolism, not elsewhere classified Status: Acute (21) Bradycardia Code(s): R00.1 - Bradycardia, unspecified Status: Acute - Assessment and Plan Plan: Neuro/Psych: Acute toxic metabolic encephalopathy History of TIA Depression/anxiety Chronic peripheral neuropathy secondary to diabetes mellitus Dementia disorder NOS Discontinued midazolam and fentanyl drips Goal of RA SS -0 Daily sedation vacation Holding gabapentin 600 mg 3 times daily for peripheral neuropathy. Resume when clinically indicated Holding scheduled morphine 15 mg every 12 hours for chronic pain Holding duloxetine 20 mg daily for depression. Resume clinically indicated Resume memantine 5 mg at night for dementia Acetaminophen 650 mg every 6 hours as needed fever Hydrocodone/acetaminophen 5/325 1 tablet every 4 hours as needed pain 1 through 5 Morphine sulfate 2 mg IV every 2 hours as needed pain [address] brain revealed no acute intracranial findings 02/26. Ammonia level 20 EEG 02/28 revealed mild slowing. No epileptic activity. MR brain 1211 revealed no acute intracranial findings See musculoskeletal MR C-spine She neurology consult. Thiamine, B12 and MMA pending. CV: Sinus bradycardia -resolved Paroxysmal atrial fibrillation currently normal sinus rhythm History of essential hypertension HyperLipidemia coronary artery disease Congestive heart failure unknown etiology Receive 0.5 mg atropine in route. Received 1 L normal saline crystalloid bolus. Dopamine drip is off Holding atorvastatin 20 mg a day for dyslipidemia. Resume clinically indicated Holding amiodarone 200 mg daily for atrial fibrillation with hyperkalemia. Resume clinically indicated. Holding amlodipine 5 mg daily metoprolol tartrate 205mg twice daily for hypertension resume clinically indicated Holding olmesartan 20 mg daily with hyper kalemia and acute kidney injury. Initial troponin 0 0.02. Trend was negative. 02/28 2D echocardiogram -EF 55-60%. LVH. Moderate MR. PA P 58 mmHg Weaning off dopamine drip Resp: History of obstructive sleep apnea Right greater than left pleural effusion/exudative by light's criteria Acute respiratory failure Currently on PRVC ventilation Head of bed at 30 degrees Ventilator bundle Albuterol/ipratropium aerosols every 4 hours with albuterol aerosols every 2 as needed dyspnea Will likely need CPAP once extubated Spontaneous breathing trials and clinically indicated CT thoracentesis ordered right pleural effusion. -[address] chest revealed right greater than left pleural effusion. Anasarca.. Atelectasis right lower lobe Will attempt CPAP trial today to extubate. GI: Elevated transaminases Elevated alkaline phosphatase Hospital left liver mass 5 cm Hypoalbuminemia Monitor transaminases. Check hepatitis panel and CPK Tube feeds on hold for possible extubation pantoprazole for GI prophylaxis DC sodium/senna 1 tablet twice daily for bowel regimen. Avoid hepatotoxic medications Follow-up on CT abdomen/pelvis revealed small left liver mass. Follow-up MRI of liver in future : BPH Holding alfazosin 10 mg daily for BPH while hypotensive on vasopressors Maintain Orozco catheter Endo: 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 Hypothyroidism with elevated TSH On levothyroxine 50 mcg daily. Continue TSH was 5.02 Sliding scale insulin with Accu-Cheks to maintain euglycemia every 6 hours/ aspart insulin low regimen On sliding scale lispro insulin at home Renal: Acute kidney injury in the setting of chronic kidney disease stage IIIb Maintain Orozco catheter Monitor urine output Accurate I's and O's Check urine eosinophils, sodium and creatinine Will receive hemodialysis 12/27. Also received 02/27. Per nephrology's request. Dr. Leal has been consulted. Defer dialysis to him in future -2500 cc 02/27 650 cc urine output past 24 hours Heme: Leukocytosis Normocytic anemia Chronic rivaroxaban use -holding 48 hours pending thoracentesis Elevated INR/PTT Monitor CBC daily. Follow trends. No indication for transfusion of blood products at this time. Resume baseline anticoagulant after CT head ID: Capnocytophaga sputum positive Blood cultures x2, and UA 02/26 no growth Sputum revealed gram-positive cocci in pairs and clusters 02/27. 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 Received acute hemodialysis today which will correct the underlying electrolyte derangement Potassium currently within normal limits. Recheck in a.m. MSK: Elevated BMI greater than 50 Bilateral lower extremity heel ulcers Cervical canal stenosis Weight loss encouraged PT evaluate and Wound care evaluate and treat MR C-spine revealed C2/3 ventral cord with LF thickening. Thecal sac 4 mm. Moderate C4/5 C5/6 and C6-7 stenosis. Mild C3/4 and C7/T1 stenosis Access -Right femoral CVL and right femoral arterial CVL day [address] placed [address] ED by Dr.Last. 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 transplanted heart: [place] heart Associated angina: without angina Qualified Code(s): I25.10 - Atherosclerotic heart disease of [place] coronary artery without angina pectoris (7) Hyperlipidemia Qualifiers: Hyperlipidemia type: unspecified Qualified Code(s): E78.5 - Hyperlipidemia, unspecified (8) Peripheral neuropathy Qualifiers: Peripheral neuropathy type: polyneuropathy, unspecified Qualified Code(s): G62.9 - Polyneuropathy, unspecified (9) Atrial fibrillation Qualifiers: Atrial fibrillation type: paroxysmal Qualified Code(s): I48.0 - Paroxysmal atrial fibrillation (11) BPH (benign prostatic hyperplasia) Qualifiers: Lower urinary tract symptom presence: unspecified whether lower urinary tract symptoms present Qualified Code(s): N40.0 - Benign prostatic hyperplasia without lower urinary tract symptoms
--- NOTE | 2018-03-02 11:05 | P.PNNP ---
Subjective Interval history: Patient remains intubated on ventilator Physical Exam Vital signs: Vital Signs 03/01/18 11:40 03/01/18 11:42 03/01/18 12:00 Temperature 98.0 F Pulse Rate 72 72 Respiratory Rate 18 16 2 L Blood Pressure 119/55 L Pulse Oximetry 98 98 03/01/18 15:51 03/01/18 15:52 03/01/18 16:00 Temperature 98.0 F Pulse Rate 74 74 Respiratory Rate 13 13 10 L Blood Pressure 115/54 L Pulse Oximetry 99 98 03/01/18 17:00 03/01/18 18:00 03/01/18 19:00 Temperature Pulse Rate 79 80 84 Respiratory Rate 14 18 22 Blood Pressure 117/58 L 122/52 L 126/75 Pulse Oximetry 98 99 99 03/01/18 19:32 03/01/18 19:33 03/01/18 20:00 Temperature 97.4 F L Pulse Rate 92 H 83 Respiratory Rate 19 18 18 Blood Pressure 130/60 Pulse Oximetry 98 96 03/01/18 21:00 03/01/18 21:04 03/01/18 22:00 Temperature Pulse Rate 82 82 84 Respiratory Rate 17 19 11 L Blood Pressure 144/56 H 124/58 L Pulse Oximetry 100 100 99 03/01/18 23:00 03/02/18 00:00 03/02/18 00:06 Temperature 98 F Pulse Rate 83 82 87 Respiratory Rate 8 L 18 18 Blood Pressure 129/60 128/82 Pulse Oximetry 99 98 03/02/18 00:07 03/02/18 01:00 03/02/18 02:00 Temperature Pulse Rate 85 90 Respiratory Rate 18 18 18 Blood Pressure 127/59 L Pulse Oximetry 98 98 97 03/02/18 02:04 03/02/18 03:00 03/02/18 04:00 Temperature 98.7 F Pulse Rate 88 88 80 Respiratory Rate 18 9 L 18 Blood Pressure 138/66 136/96 H 129/59 L Pulse Oximetry 98 98 98 03/02/18 04:13 03/02/18 04:14 03/02/18 05:00 Temperature Pulse Rate 80 79 Respiratory Rate 18 18 15 Blood Pressure 128/60 Pulse Oximetry 98 98 03/02/18 06:00 03/02/18 07:00 03/02/18 08:00 Temperature 98.9 F Pulse Rate 79 75 75 Respiratory Rate 16 13 9 L Blood Pressure 127/68 128/60 129/58 L Pulse Oximetry 98 96 99 03/02/18 08:22 03/02/18 08:23 03/02/18 09:00 Temperature Pulse Rate 79 77 Respiratory Rate 17 17 16 Blood Pressure 128/61 Pulse Oximetry 99 99 03/02/18 10:00 03/02/18 10:01 Temperature Pulse Rate 69 69 Respiratory Rate 23 21 Blood Pressure 124/54 L Pulse Oximetry 99 99 Intake & Output 03/01/18 03/02/18 03/02/18 18:59 06:59 18:59 Intake Total 1250 / 1250 1828 / 1828 Output Total 3500 / 3500 1185 / 1185 Balance -2250 / -2250 643 / 643 Weight 160 kg Intake: IV 1250 / 1250 1150 / 1150 NS Inj 1,000 ML @ 84 mls/hr IV. 1000 / 1000 1000 / 1000 CONT .[id number] ANA Rx#:[id number] Zosyn 2.25 GM Premix 50 ML @ 150 / 150 100 mls/hr IV.SIG Q8H ANA Rx#: [id number] Vancomycin Inj 1,000 MG In NS 250 / 250 Inj 250 ML @ 250 mls/hr IV.SIG WITH DIALYSIS ANA Rx#:[id number] Oral 0 / 0 0 / 0 Tube Feeding 478 / 478 Water Bolus Amount 200 / 200 Output: Urine 650 / 650 Hemodialysis Amount 3500 / 3500 Urine Amount (Catheter) 535 / 535 Indwelling Urethral Catheter 535 / 535 Other: Date of Last Bowel Movement 03/01/18 03/01/18 03/01/18 # Bowel Movements 1 Narrative: GENERAL: Well-nourished, well-developed intubated patient. SKIN: Warm and dry. HEAD: Normocephalic. EYES: No scleral icterus. No injection or drainage. NECK: Supple, trachea midline. No JVD or lymphadenopathy. CARDIOVASCULAR: Regular rate and rhythm without murmurs, gallops, or rubs. RESPIRATORY: Breath sounds equal bilaterally. No accessory muscle use. GASTROINTESTINAL: Abdomen soft, non-tender, nondistended. EXTREMITIES: Plus edema NEUROLOGICAL: On ventilator. - Urinary Catheter Management Indwelling Urethral Catheter Cath placed during this visit: yes, but has since been removed by the nurse Reason for continuing: Chronic Urinary Retention Insertion date: 02/26/18 Insertion time: 16:00 Removal date: 02/26/18 Removal time: 15:30 Assessment and Plan - Assessment (1) Acute renal failure Code(s): N17.9 - Acute kidney failure, unspecified Status: Acute (2) Chronic kidney disease Code(s): N18.9 - Chronic kidney disease, unspecified Status: Acute (3) Shock Code(s): R57.9 - Shock, unspecified Status: Acute (4) BMI 50.0-59.9, adult Code(s): Z68.43 - Body mass index (BMI) 50-59.9, adult Status: Chronic (5) 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 Code(s): E11.9 - Type 2 diabetes mellitus without complications Status: Chronic Qualifiers: 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 type: type 2 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 group home 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
[2018-03-02 13:42] LABS: Activated Partial Thrombo Time 32.9 sec (23.4-31.7); INR 1.3 Ratio; Prothrombin Time 13.3 sec (9.8-11.6)
--- NOTE | 2018-03-02 16:28 | P.PN ---
Subjective Interval history: remains on vent support FIO2 0.4 Physical Exam Vital signs: Vital Signs 03/01/18 17:00 03/01/18 18:00 03/01/18 19:00 Temperature Pulse Rate 79 80 84 Respiratory Rate 14 18 22 Blood Pressure 117/58 L 122/52 L 126/75 Pulse Oximetry 98 99 99 03/01/18 19:32 03/01/18 19:33 03/01/18 20:00 Temperature 97.4 F L Pulse Rate 92 H 83 Respiratory Rate 19 18 18 Blood Pressure 130/60 Pulse Oximetry 98 96 03/01/18 21:00 03/01/18 21:04 03/01/18 22:00 Temperature Pulse Rate 82 82 84 Respiratory Rate 17 19 11 L Blood Pressure 144/56 H 124/58 L Pulse Oximetry 100 100 99 03/01/18 23:00 03/02/18 00:00 03/02/18 00:06 Temperature 98 F Pulse Rate 83 82 87 Respiratory Rate 8 L 18 18 Blood Pressure 129/60 128/82 Pulse Oximetry 99 98 03/02/18 00:07 03/02/18 01:00 03/02/18 02:00 Temperature Pulse Rate 85 90 Respiratory Rate 18 18 18 Blood Pressure 127/59 L Pulse Oximetry 98 98 97 03/02/18 02:04 03/02/18 03:00 03/02/18 04:00 Temperature 98.7 F Pulse Rate 88 88 80 Respiratory Rate 18 9 L 18 Blood Pressure 138/66 136/96 H 129/59 L Pulse Oximetry 98 98 98 03/02/18 04:13 03/02/18 04:14 03/02/18 05:00 Temperature Pulse Rate 80 79 Respiratory Rate 18 18 15 Blood Pressure 128/60 Pulse Oximetry 98 98 03/02/18 06:00 03/02/18 07:00 03/02/18 08:00 Temperature 98.9 F Pulse Rate 79 75 75 Respiratory Rate 16 13 9 L Blood Pressure 127/68 128/60 129/58 L Pulse Oximetry 98 96 99 03/02/18 08:22 03/02/18 08:23 03/02/18 09:00 Temperature Pulse Rate 79 77 Respiratory Rate 17 17 16 Blood Pressure 128/61 Pulse Oximetry 99 99 03/02/18 10:00 03/02/18 10:01 03/02/18 11:00 Temperature Pulse Rate 69 69 72 Respiratory Rate 23 21 16 Blood Pressure 124/54 L 124/59 L Pulse Oximetry 99 99 97 03/02/18 11:07 03/02/18 12:00 03/02/18 12:01 Temperature 99.5 F Pulse Rate 72 71 71 Respiratory Rate 14 17 17 Blood Pressure 119/55 L Pulse Oximetry 98 98 99 03/02/18 14:00 03/02/18 14:39 Temperature Pulse Rate 70 80 Respiratory Rate 16 Blood Pressure Pulse Oximetry Intake & Output 03/01/18 03/02/18 03/02/18 18:59 06:59 18:59 Intake Total 1250 / 1250 1828 / 1828 1000 / 1000 Output Total 3500 / 3500 1185 / 1185 Balance -2250 / -2250 643 / 643 1000 / 1000 Weight 160 kg Intake: IV 1250 / 1250 1150 / 1150 1000 / 1000 NS Inj 1,000 ML @ 84 mls/hr IV. 1000 / 1000 1000 / 1000 1000 / 1000 CONT .[id number] ANA Rx#:[id number] Zosyn 2.25 GM Premix 50 ML @ 150 / 150 100 mls/hr IV.SIG Q8H ANA Rx#: [id number] Vancomycin Inj 1,000 MG In NS 250 / 250 Inj 250 ML @ 250 mls/hr IV.SIG WITH DIALYSIS ANA Rx#:[id number] Oral 0 / 0 0 / 0 Tube Feeding 478 / 478 Water Bolus Amount 200 / 200 Output: Urine 650 / 650 Hemodialysis Amount 3500 / 3500 Urine Amount (Catheter) 535 / 535 Indwelling Urethral Catheter 535 / 535 Other: Date of Last Bowel Movement 03/01/18 03/01/18 03/01/18 # Bowel Movements 1 Narrative: GENERAL: Well-nourished, well-developed intubated patient. SKIN: Warm and dry. HEAD: Normocephalic. EYES: No scleral icterus. No injection or drainage. NECK: Supple, trachea midline. No JVD or lymphadenopathy. CARDIOVASCULAR: Regular rate and rhythm without murmurs, gallops, or rubs. RESPIRATORY: Breath sounds equal bilaterally. No accessory muscle use. GASTROINTESTINAL: Abdomen soft, non-tender, nondistended. EXTREMITIES: Plus edema NEUROLOGICAL: On ventilator. - Urinary Catheter Management Indwelling Urethral Catheter Cath placed during this visit: yes, but has since been removed by the nurse Reason for continuing: Chronic Urinary Retention Insertion date: 02/26/18 Insertion time: 16:00 Removal date: 02/26/18 Removal time: 15:30 Results - Labs CBC & Chem 7: 03/02/18 04:30 03/02/18 04:30 Laboratory Results - last 24 hr 03/01/18 03/01/18 03/02/18 18:13 23:33 04:30 WBC 13.5 H RBC 3.17 L Hgb 9.1 L Hct 27.3 L MCV 86.0 MCH 28.6 MCHC 33.2 RDW 15.1 Plt Count 220 MPV 8.5 Neut % (Auto) 87.5 H Lymph % (Auto) 5.2 L [place] % (Auto) 6.5 Eos % (Auto) 0.6 Baso % (Auto) 0.2 Neut # (Auto) 11.8 H Lymph # (Auto) 0.7 L [place] # (Auto) 0.9 Eos # (Auto) 0.1 Baso # (Auto) 0.0 WBC Differential . Differential Comment Auto diff final PT INR APTT Sodium Potassium Chloride Carbon Dioxide Anion Gap BUN Creatinine Estimated GFR POC Glucose 138 H 164 H Random Glucose Calcium Phosphorus Magnesium Total Bilirubin AST ALT Alkaline Phosphatase Total Protein Albumin 03/02/18 03/02/18 03/02/18 04:30 11:21 13:06 WBC RBC Hgb Hct MCV MCH MCHC RDW Plt Count MPV Neut % (Auto) Lymph % (Auto) [place] % (Auto) Eos % (Auto) Baso % (Auto) Neut # (Auto) Lymph # (Auto) [place] # (Auto) Eos # (Auto) Baso # (Auto) WBC Differential Differential Comment PT 13.3 H INR 1.3 APTT 32.9 H Sodium 141 Potassium 3.6 Chloride 104 Carbon Dioxide 27.1 Anion Gap 10 BUN 28 H Creatinine 2.77 H Estimated GFR 23 L POC Glucose 178 H Random Glucose 164 H Calcium 8.2 L Phosphorus 3.1 D Magnesium 2.0 Total Bilirubin 0.5 AST 39 H ALT 82 H Alkaline Phosphatase 343 H Total Protein 6.1 L Albumin 2.3 L Microbiology 02/26/18 12:50 Blood - Line Aerobic Blood Culture - Preliminary No growth in 4 days 02/26/18 12:50 Blood - Line Anaerobic Blood Culture - Preliminary No growth in 4 days 02/26/18 12:55 Blood - Line Aerobic Blood Culture - Preliminary No growth in 4 days 02/26/18 12:55 Blood - Line Anaerobic Blood Culture - Preliminary No growth in 4 days 02/27/18 23:00 Sputum - Endotracheal Gram Stain - Final 02/27/18 23:00 Sputum - Endotracheal Sputum Culture - Final Capnocytophaga species Assessment and Plan - Plan RESPIRATORY FAILURE RENAL FAILURE SEPSIS PLAN WEAN OFF VENT TOLERATED ANTIBX OUTLOOK POOR Procedures - Arterial Line Size (Gauge): 20
[2018-03-02] MEDS: Heparin Drip 25,000 UNIT/250 ML BAG IV.CONT PRN (17:43)
[2018-03-03] MEDS: Sod Chloride 0.9% Inj 1,000 ML IV.CONT SCH ×4 (00:10→23:15)
[2018-03-03] MEDS: Oral Hygiene Kit OROPHARYNG SCH ×4 (04:25→23:15)
[2018-03-03] MEDS: Chlorhexidine Gluconate 2% 1 Pack (2 Cloths) TOPICAL SCH (04:25)
[2018-03-03] MEDS: Levothyroxine 50 MCG Tablet PO SCH (05:36)
[2018-03-03] MEDS: Piperacil/Tazo 2.25 GM Premix 50 ML IV.SIG SCH ×3 (05:36→23:14)
[2018-03-03] MEDS: Gentamicin 0.3% Opth Drops 5 ML Bottle EACH EYE SCH ×2 (06:15→16:27)
[2018-03-03] MEDS: Artificial Tears Opth Drops 15 ML Bottle EACH EYE SCH ×2 (06:15→16:27)
[2018-03-03] MEDS: Heparin Drip 25,000 UNIT/250 ML BAG IV.CONT PRN ×2 (06:53→20:24)
[2018-03-03 07:42] LABS: Hematocrit 26.6 % (39.0-51.0); Hemoglobin 8.8 gm/dL (13.0-17.0); Mean Corpuscular HGB Conc 33.3 % (32.0-36.0); Mean Corpuscular Hemoglobin 28.5 pg (27.0-34.0); Mean Corpuscular Volume 85.8 fL (80.0-100.0); Mean Platelet Volume 7.9 fL (7.0-11.0); Platelet Count 217 th/mm3 (150-450); Red Cell Distribution Width 15.1 % (11.6-17.2); White Blood Count 12.8 th/mm3 (4.0-11.0)
[2018-03-03 08:23] LABS: Alanine Aminotransferase 62 U/L (12-78); Albumin 2.3 g/dL (3.4-5.0); Anion Gap 6 meq/L (5-15); Aspartate Aminotransferase 28 U/L (15-37); Blood Urea Nitrogen 31 mg/dL (7-18); Calcium 7.8 mg/dL (8.5-10.1); Carbon Dioxide 29.2 meq/L (21.0-32.0); Chloride 106 meq/L (98-107); Glomerular Filtration Rate 20 mL/min (>89); Glucose,Random 159 mg/dL (74-106); Magnesium 2.1 mg/dL (1.5-2.5); Potassium 3.6 meq/L (3.5-5.1); Sodium 141 meq/L (136-145)
[2018-03-03 08:25] LABS: Alkaline Phosphatase 323 U/L (45-117); Total Protein 6.6 g/dL (6.4-8.2)
--- NOTE | 2018-03-03 08:28 | P.PNNP ---
Subjective Interval history: on vent Physical Exam Vital signs: Vital Signs 03/02/18 09:00 03/02/18 10:00 03/02/18 10:01 Temperature Pulse Rate 77 69 69 Respiratory Rate 16 23 21 Blood Pressure 128/61 124/54 L Pulse Oximetry 99 99 99 03/02/18 11:00 03/02/18 11:07 03/02/18 12:00 Temperature 99.5 F Pulse Rate 72 72 71 Respiratory Rate 16 14 17 Blood Pressure 124/59 L Pulse Oximetry 97 98 98 03/02/18 12:01 03/02/18 13:00 03/02/18 14:00 Temperature Pulse Rate 71 71 70 Respiratory Rate 17 15 17 Blood Pressure 119/55 L 120/57 L 117/80 Pulse Oximetry 99 98 98 03/02/18 14:39 03/02/18 15:00 03/02/18 16:00 Temperature 99 F Pulse Rate 80 80 78 Respiratory Rate 16 14 8 L Blood Pressure 115/58 L 116/55 L Pulse Oximetry 99 99 03/02/18 18:00 03/02/18 19:35 03/02/18 19:37 Temperature Pulse Rate 71 66 Respiratory Rate 16 17 Blood Pressure Pulse Oximetry 100 03/02/18 20:00 03/02/18 22:00 03/02/18 23:32 Temperature 98.9 F Pulse Rate 68 67 68 Respiratory Rate 15 12 Blood Pressure 113/52 L Pulse Oximetry 100 03/03/18 00:00 03/03/18 02:00 03/03/18 03:39 Temperature 98.5 F Pulse Rate 71 74 69 Respiratory Rate 12 15 Blood Pressure 120/66 Pulse Oximetry 99 98 03/03/18 04:00 03/03/18 06:00 03/03/18 07:41 Temperature 98.4 F Pulse Rate 69 70 72 Respiratory Rate 13 17 Blood Pressure 101/48 L Pulse Oximetry 98 98 Intake & Output 03/02/18 03/03/18 03/03/18 18:59 06:59 18:59 Intake Total 1050 / 1050 2024 / 2024 Output Total 400 / 400 550 / 550 Balance 650 / 650 1475 / 1475 Weight 160.6 kg Intake: IV 1050 / 1050 1350 / 1350 Heparin/D5W 25,000 U/250 mL 25, 250 / 250 000 unit In 250 ml @ Per Protocol IV.CONT TITRATE PRN Rx #:[id number] NS Inj 1,000 ML @ 84 mls/hr IV. 1000 / 1000 1000 / 1000 CONT .[id number] [facility] Rx#:[id number] Zosyn 2.25 GM Premix 50 ML @ 50 / 50 100 / 100 100 mls/hr IV.SIG Q8H ANA Rx#: [id number] Tube Feeding 475 / 475 Water Bolus Amount 200 / 200 Output: Urine Amount (Catheter) 400 / 400 550 / 550 Indwelling Urethral Catheter 400 / 400 550 / 550 Other: Date of Last Bowel Movement 03/01/18 03/03/18 # Incontinent Bowel Movements 1 Narrative: GENERAL: Well-nourished, well-developed intubated patient. SKIN: Warm and dry. HEAD: Normocephalic. EYES: No scleral icterus. No injection or drainage. NECK: Supple, trachea midline. No JVD or lymphadenopathy. CARDIOVASCULAR: Regular rate and rhythm without murmurs, gallops, or rubs. RESPIRATORY: Breath sounds equal bilaterally. No accessory muscle use. GASTROINTESTINAL: Abdomen soft, non-tender, nondistended. EXTREMITIES: Plus edema NEUROLOGICAL: On ventilator. - Urinary Catheter Management Indwelling Urethral Catheter Cath placed during this visit: yes, but has since been removed by the nurse Reason for continuing: Chronic Urinary Retention Insertion date: 02/26/18 Insertion time: 16:00 Removal date: 02/26/18 Removal time: 15:30 Assessment and Plan - Assessment (1) Acute renal failure Code(s): N17.9 - Acute kidney failure, unspecified Status: Acute (2) Chronic kidney disease Code(s): N18.9 - Chronic kidney disease, unspecified Status: Acute (3) Shock Code(s): R57.9 - Shock, unspecified Status: Acute (4) BMI 50.0-59.9, adult Code(s): Z68.43 - Body mass index (BMI) 50-59.9, adult Status: Chronic (5) 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 Code(s): E11.9 - Type 2 diabetes mellitus without complications Status: Chronic Qualifiers: 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 type: type 2 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
[2018-03-03] MEDS: Heparin 10,000 UNITS/10 ML Vial (for IV use) OTHER PRN (09:15)
[2018-03-03] MEDS: Vancomycin Inj 1,000 MG in Sodium Chlor 0.9% Inj 250 ML IV.SIG SCH (09:15)
[2018-03-03] MEDS: Albumin Human 25% Inj 100 ML IV.SIG PRN ×2 (09:35→09:38)
--- NOTE | 2018-03-03 09:42 | P.PNCC ---
Subjective Subjective Remarks/Hospital Course: This is a 72-year-old male. Admission 02/26/2018. Past medical includes morbid obesity, depression, dementia, coronary artery disease, hypertension, hyperlipidemia, diabetes mellitus, atrial fibrillation currently rate controlled, hypothyroidism, peripheral neuropathy, chronic kidney disease stage III-IV, chronic opiate use and chronic anticoagulation with rivaroxaban. [facility] was originally sent to [facility] emergency department the chief diagnosis of acute altered mental status since yesterday. EMS was called and found the patient have initial heart rate in the 30s with a blood pressure 120/60 manually, they give a half a milligram of atropine which brought his heart rate into the 40s and his blood pressure 96/72. His initial GCS on scene was 12, according to EMS the care home reported that normally he is conversant and able to answer questions appropriately. Upon arrival, a central line and arterial line replaced in the right femoral vein/artery is appropriate and received 1 L normal saline. Currently on norepinephrine drip for mean arterial pressure greater than 65. Patient had normal white blood cell count. Potassium 7 with peaked T waves. Patient received D50, insulin and calcium chloride. Nephrology was consulted and recommended hemodialysis. Patient has scans of the brain, chest, abdomen pelvis pain-free chest x-ray revealed possible right pleural effusion versus infiltrate with aspiration. Patient still quite confused however is arousable and will follow commands 02/27: Intubated yesterday with sonorous breath sounds worsening altered mental status on arrival to floor. A right IJ hemodialysis catheter was placed in place and received emergent hemodialysis per potassium currently 5.0. Will attempt thoracentesis today to remove right pleural effusion and possible extubation afterwards. If not, will initiate tube feeding today. 02/28: -1500 cc cloudy yellow fluid removed with right-sided thoracentesis yesterday. Appears exudative by light's criteria. Attempting CPAP trials today with attempt extubate. -2500 cc with hemodialysis yesterday.. 03/01: Afebrile. MRI brain yesterday evening no acute findings. EEG revealed mild slowing but no epileptiform activity. MRI C-spine however did reveal C2/C ventral cord disc at left thickening. Thecal sac 4 mm. Patient is moving all 4 extremities and is more arousable today. Midazolam drip off since yesterday morning. 03/02: Resting in bed. More arousable today. Looks like to when he states his name on both sides. Weakly squeezes hands. Afebrile. SUBJECTIVE: 03/03: More arousable today. Follow commands. Currently hemodialysis. Will attempt extubation post dialysis. Tolerating tube feeds. Objective Vital Signs / I&O: Vital Signs 03/02/18 10:00 03/02/18 10:01 03/02/18 11:00 Temperature Pulse Rate 69 69 72 Respiratory Rate 23 21 16 Blood Pressure 124/54 L 124/59 L Pulse Oximetry 99 99 97 03/02/18 11:07 03/02/18 12:00 03/02/18 12:01 Temperature 99.5 F Pulse Rate 72 71 71 Respiratory Rate 14 17 17 Blood Pressure 119/55 L Pulse Oximetry 98 98 99 03/02/18 13:00 03/02/18 14:00 03/02/18 14:39 Temperature Pulse Rate 71 70 80 Respiratory Rate 15 17 16 Blood Pressure 120/57 L 117/80 Pulse Oximetry 98 98 03/02/18 15:00 03/02/18 16:00 03/02/18 17:00 Temperature 99 F Pulse Rate 80 78 69 Respiratory Rate 14 8 L 8 L Blood Pressure 115/58 L 116/55 L 112/51 L Pulse Oximetry 99 99 99 03/02/18 18:00 03/02/18 19:00 03/02/18 19:01 Temperature Pulse Rate 71 65 65 Respiratory Rate 16 15 16 Blood Pressure 118/57 L 115/51 L Pulse Oximetry 99 100 100 03/02/18 19:35 03/02/18 19:37 03/02/18 20:00 Temperature 98.9 F Pulse Rate 66 68 Respiratory Rate 16 17 10 L Blood Pressure 113/52 L Pulse Oximetry 100 100 03/02/18 21:00 03/02/18 22:00 03/02/18 22:01 Temperature Pulse Rate 66 67 67 Respiratory Rate 8 L 11 L 13 Blood Pressure 107/61 117/55 L Pulse Oximetry 99 99 100 03/02/18 23:00 03/02/18 23:32 03/03/18 00:00 Temperature 98.5 F Pulse Rate 66 68 71 Respiratory Rate 13 12 12 Blood Pressure 118/58 L 120/66 Pulse Oximetry 99 99 03/03/18 00:01 03/03/18 00:44 03/03/18 01:00 Temperature Pulse Rate 71 70 66 Respiratory Rate 15 13 13 Blood Pressure 120/66 106/56 L 104/53 L Pulse Oximetry 100 99 99 03/03/18 02:00 03/03/18 03:00 03/03/18 03:13 Temperature Pulse Rate 74 74 72 Respiratory Rate 13 15 13 Blood Pressure 116/73 103/44 L Pulse Oximetry 98 100 99 03/03/18 03:16 03/03/18 03:39 03/03/18 04:00 Temperature 98.4 F Pulse Rate 72 69 69 Respiratory Rate 14 15 13 Blood Pressure 101/44 L 101/48 L Pulse Oximetry 98 98 98 03/03/18 04:01 03/03/18 05:00 03/03/18 06:00 Temperature Pulse Rate 69 72 70 Respiratory Rate 13 14 13 Blood Pressure 101/48 L 111/56 L 111/65 Pulse Oximetry 98 100 100 03/03/18 07:00 03/03/18 07:41 03/03/18 08:00 Temperature 98.7 F Pulse Rate 68 72 72 Respiratory Rate 15 17 12 Blood Pressure 113/70 Pulse Oximetry 99 98 100 03/03/18 08:09 03/03/18 08:15 03/03/18 08:30 Temperature Pulse Rate 75 75 73 Respiratory Rate 11 L 16 14 Blood Pressure 163/68 H 155/66 H 158/69 H Pulse Oximetry 100 100 100 03/03/18 08:46 Temperature Pulse Rate 74 Respiratory Rate 18 Blood Pressure 127/60 Pulse Oximetry 99 Intake & Output 03/02/18 03/03/18 03/03/18 18:59 06:59 18:59 Intake Total 1050 / 1050 2025 / 2025 100 / 100 Output Total 400 / 400 550 / 550 Balance 650 / 650 1475 / 1475 100 / 100 Weight 160.6 kg Intake: IV 1050 / 1050 1350 / 1350 100 / 100 Heparin/D5W 25,000 U/250 mL 25, 250 / 250 000 unit In 250 ml @ Per Protocol IV.CONT TITRATE PRN Rx #:[id number] NS Inj 1,000 ML @ 84 mls/hr IV. 1000 / 1000 1000 / 1000 CONT .[id number] ANA Rx#:[id number] Flexbumin 25% Inj 100 ML @ 60 100 / 100 mls/hr IV.SIG WITH DIALYSIS PRN Rx#:[id number] Zosyn 2.25 GM Premix 50 ML @ 50 / 50 100 / 100 100 mls/hr IV.SIG Q8H [facility] Rx#: [id number] Tube Feeding 475 / 475 Water Bolus Amount 200 / 200 Output: Urine Amount (Catheter) 400 / 400 550 / 550 Indwelling Urethral Catheter 400 / 400 550 / 550 Other: Date of Last Bowel Movement 03/01/18 03/03/18 03/03/18 # Incontinent Bowel Movements 1 Result Diagrams: 03/03/18 07:19 03/03/18 07:57 Other Results: Microbiology 03/03/18 02:00 Stool Stool Occult Blood (PADMINI) - Final Hemoccult negative 02/26/18 12:50 Blood - Line Aerobic Blood Culture - Preliminary No growth in 4 days 02/26/18 12:50 Blood - Line Anaerobic Blood Culture - Preliminary No growth in 4 days 02/26/18 12:55 Blood - Line Aerobic Blood Culture - Preliminary No growth in 4 days 02/26/18 12:55 Blood - Line Anaerobic Blood Culture - Preliminary No growth in 4 days 02/27/18 23:00 Sputum - Endotracheal Gram Stain - Final 02/27/18 23:00 Sputum - Endotracheal Sputum Culture - Final Capnocytophaga species 02/26/18 16:00 Catheterized Urine Urine Culture - Final No growth in 48 hours 02/26/18 12:50 Clean Catch Urine Urine Culture - Final No growth in 48 hours Imaging: ITS Impressions Chest CT 02/26/18 00:00 CONCLUSION: 1. Bilateral pleural effusions being moderate on the right and mild on the left. 2. Suspected right lower lobe atelectasis likely from the effusion versus consolidation. 3. Milder consolidation or atelectasis at the left base. 4. Compression deformity of the T4 vertebral body. 5. Edema in the soft tissues being asymmetric and worse on the right. Venous Doppler Study 02/26/18 00:00 CONCLUSION: No venous thrombosis is identified within either lower extremity. Abdomen/Pelvis CT 02/26/18 11:52 CONCLUSION: 1. Limited study secondary to heterogeneity throughout the exam likely secondary to body habitus. 2. Heterogeneity to the liver with a possible 5 cm mass in the lateral segment the left lobe of the liver. This could be further evaluated with a better contrast-enhanced CT or MRI examination the future. 3. Suspected anasarca being worse on the right. Head CT 02/26/18 11:52 CONCLUSION: 1. No acute abnormality. 2. Mild cortical atrophy. . Thoracentesis CT 02/27/18 00:00 CONCLUSION: 1. Uncomplicated CT-guided thoracentesis. Cervical Spine MRI 02/28/18 14:24 CONCLUSION: 1. Multilevel protrusions causing severe canal stenosis at C2-3. 2. Mild canal stenosis at C3-4 and C7-T1. 3. Moderate canal stenosis at C4-5, C5-6 and 6 7 levels. Head MRI 02/28/18 14:24 CONCLUSION: 1. No acute hemorrhage, mass or evidence of infarction. 2. Atrophy and chronic small vessel ischemic change. 3. Mucosal thickening and small air-fluid levels in the sphenoid sinuses and ethmoidal air cells which could indicate acute sinusitis. Chest X-Ray 03/01/18 00:01 CONCLUSION: More symmetric, bilateral pulmonary opacities again seen likely representing a combination of parenchymal opacity and pleural effusion. The opacity has increased on the right and is unchanged on the left. Objective Remarks: GENERAL: 72-year-old male currently orotracheally intubated SKIN: Warm and dry. Chronic venous stasis bilateral lower extremities HEAD: Atraumatic. Normocephalic. EYES: Pupils equal and round. No scleral icterus. No injection or drainage. ENT: No nasal bleeding or discharge. Mucous membranes pink and moist. NECK: Trachea midline. No JVD. Right IJ hemodialysis catheter is clean dry and intact CARDIOVASCULAR: Regular rate and rhythm. S1, S2 no S4. RESPIRATORY: Minutes breath sounds due to body habitus. No wheezing appreciated.. GASTROINTESTINAL: Abdomen soft, non-tender, obese with large pannus.. MUSCULOSKELETAL: Extremities with trace to 1+ bilateral lower extremity edema. NEUROLOGICAL: Arousable on the ventilator. Moves upper extremities spontaneously commands. Opens eyes. Positive cough and gag. Assessment and Plan - Problem List (1) Depression Code(s): F32.9 - Major depressive disorder, single episode, unspecified Status : Chronic (2) Obstructive sleep apnea Code(s): G47.33 - Obstructive sleep apnea (adult) (pediatric) Status: Chronic (3) BMI 50.0-59.9, adult Code(s): Z68.43 - Body mass index (BMI) 50-59.9, adult Status: Chronic (4) 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 Code(s): E11.9 - Type 2 diabetes mellitus without complications Status: Chronic (5) Coronary artery disease Code(s): I25.10 - Atherosclerotic heart disease of [place] coronary artery without angina pectoris Status: Chronic (6) History of essential hypertension Code(s): Z86.79 - Personal history of other diseases of the circulatory system Status: Chronic (7) Hyperlipidemia Code(s): E78.5 - Hyperlipidemia, unspecified Status: Chronic (8) Peripheral neuropathy Code(s): G62.9 - Polyneuropathy, unspecified Status: Chronic (9) Atrial fibrillation Code(s): I48.91 - Unspecified atrial fibrillation Status: Chronic (10) Chronic narcotic use Code(s): F11.90 - Opioid use, unspecified, uncomplicated Status: Chronic (11) BPH (benign prostatic hyperplasia) Code(s): N40.0 - Benign prostatic hyperplasia without lower urinary tract symptoms Status: Chronic (12) Hyponatremia Code(s): E87.1 - Hypo-osmolality and hyponatremia Status: Acute (13) Normocytic anemia Code(s): D64.9 - Anemia, unspecified Status: Acute (14) Acute hyperkalemia Code(s): E87.5 - Hyperkalemia Status: Acute (15) Acute hypotension Code(s): I95.9 - Hypotension, unspecified Status: Acute (16) Shock Code(s): R57.9 - Shock, unspecified Status: Acute (17) Elevated transaminase level Code(s): R74.0 - Nonspecific elevation of levels of transaminase and lactic acid dehydrogenase [LDH] Status: Acute (18) Elevated TSH Code(s): R79.89 - Other specified abnormal findings of blood chemistry Status : Acute (19) Elevated alkaline phosphatase level Code(s): R74.8 - Abnormal levels of other serum enzymes Status: Acute (20) Hypoalbuminemia Code(s): E88.09 - Other disorders of plasma-protein metabolism, not elsewhere classified Status: Acute (21) Bradycardia Code(s): R00.1 - Bradycardia, unspecified Status: Acute - Assessment and Plan Plan: Neuro/Psych: Acute toxic metabolic encephalopathy History of TIA Depression/anxiety Chronic peripheral neuropathy secondary to diabetes mellitus Dementia disorder NOS Discontinued midazolam and fentanyl drips Goal of RASS -0 Daily sedation vacation Holding gabapentin 600 mg 3 times daily for peripheral neuropathy. Resume when clinically indicated Holding scheduled morphine 15 mg every 12 hours for chronic pain Holding duloxetine 20 mg daily for depression. Resume clinically indicated Resume memantine 5 mg at night for dementia Acetaminophen 650 mg every 6 hours as needed fever Hydrocodone/acetaminophen 5/325 1 tablet every 4 hours as needed pain 1 through 5 Morphine sulfate 2 mg IV every 2 hours as needed pain [address] brain revealed no acute intracranial findings 02/26. Ammonia level 20 EEG 02/28 revealed mild slowing. No epileptic activity. MR brain 1211 revealed no acute intracranial findings See musculoskeletal MR C-spine She neurology consult. Thiamine, B12 and MMA pending. CV: Sinus bradycardia -resolved Paroxysmal atrial fibrillation currently normal sinus rhythm History of essential hypertension HyperLipidemia coronary artery disease Congestive heart failure unknown etiology Receive 0.5 mg atropine in route. Received 1 L normal saline crystalloid bolus. Dopamine drip is off Holding atorvastatin 20 mg a day for dyslipidemia. Resume clinically indicated Holding amiodarone 200 mg daily for atrial fibrillation with hyperkalemia. Resume clinically indicated. Holding amlodipine 5 mg daily metoprolol tartrate 205mg twice daily for hypertension resume clinically indicated Holding olmesartan 20 mg daily with hyper kalemia and acute kidney injury. Initial troponin 0 0.02. Trend was negative. 02/28 2D echocardiogram -EF 55-60%. LVH. Moderate MR. PA P 58 mmHg Resp: History of obstructive sleep apnea Right greater than left pleural effusion/exudative by light's criteria Acute respiratory failure Currently on PRVC ventilation Head of bed at 30 degrees Ventilator bundle Albuterol/ipratropium aerosols every 4 hours with albuterol aerosols every 2 as needed dyspnea Will likely need CPAP once extubated Spontaneous breathing trials and clinically indicated CT thoracentesis ordered right pleural effusion. -[address] chest revealed right greater than left pleural effusion. Anasarca.. Atelectasis right lower lobe Will attempt CPAP trial today to extubate. Today 03/03 GI: Elevated transaminases Elevated alkaline phosphatase Hospital left liver mass 5 cm Hypoalbuminemia Monitor transaminases. Check hepatitis panel was negative Tube feeds on hold for possible extubation pantoprazole for GI prophylaxis DC sodium/senna 1 tablet twice daily for bowel regimen. Avoid hepatotoxic medications Follow-up on CT abdomen/pelvis revealed small left liver mass. Follow-up MRI of liver in future : BPH Holding alfazosin 10 mg daily for BPH while hypotensive on vasopressors Maintain Orozco catheter Endo: 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 Hypothyroidism with elevated TSH On levothyroxine 50 mcg daily. Continue TSH was 5.02 Sliding scale insulin with Accu-Cheks to maintain euglycemia every 6 hours/ aspart insulin low regimen On sliding scale lispro insulin at home Renal: Acute kidney injury in the setting of chronic kidney disease stage IIIb Maintain Orozco catheter Monitor urine output Accurate I's and O's Check urine eosinophils, sodium and creatinine Will receive hemodialysis 12/27. Also received 02/27. Per nephrology's request. Dr. Leal has been consulted. Defer dialysis to him in future -2500 cc 02/27 950 cc urine output past 24 hours Heme: Leukocytosis Normocytic anemia Chronic rivaroxaban use -holding 48 hours pending thoracentesis Elevated INR/PTT Monitor CBC daily. Follow trends. No indication for transfusion of blood products at this time. Resume baseline anticoagulant after CT head ID: Capnocytophaga sputum positive Blood cultures x2, and UA 02/26 no growth Sputum revealed gram-positive cocci in pairs and clusters 02/27. 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 Received acute hemodialysis today which will correct the underlying electrolyte derangement Potassium currently within normal limits. Recheck in a.m. MSK: Elevated BMI greater than 50 Bilateral lower extremity heel ulcers Cervical canal stenosis Weight loss encouraged PT evaluate and Wound care evaluate and treat MR C-spine revealed C2/3 ventral cord with LF thickening. Thecal sac 4 mm. Moderate C4/5 C5/6 and C6-7 stenosis. Mild C3/4 and C7/T1 stenosis Access -Right femoral CVL and right femoral arterial CVL day 3 placed the ED by . Discontinued 03/01 r -ight IJ dialysis catheter day #5 Prophylaxis -GI -pantoprazole -DVT -SCD heparin gtt Critical care time 35 minutes Procedures - Arterial Line Size (Gauge): 20 (1) Depression Qualifiers: Depression Type: major depressive disorder Major depression recurrence: recurrent Active/Remission status: remission status unspecified Qualified Code (s): F33.9 - Major depressive disorder, recurrent, unspecified (4) 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 Qualifiers: 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 type: type 2 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 usp insulin use: with bed bug exterminator use 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 complication status: with kidney complications 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 complication detail: with other kidney complication Qualified Code(s): E11.29 - Type 2 diabetes mellitus with other diabetic kidney complication; Z79.4 - bed bug exterminator (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 (5) Coronary artery disease Qualifiers: Coronary Disease-Associated Artery/Lesion type: unspecified vessel or lesion type [place] vs. transplanted heart: [place] heart Associated angina: without angina Qualified Code(s): I25.10 - Atherosclerotic heart disease of [place] coronary artery without angina pectoris (7) Hyperlipidemia Qualifiers: Hyperlipidemia type: unspecified Qualified Code(s): E78.5 - Hyperlipidemia, unspecified (8) Peripheral neuropathy Qualifiers: Peripheral neuropathy type: polyneuropathy, unspecified Qualified Code(s): G62.9 - Polyneuropathy, unspecified (9) Atrial fibrillation Qualifiers: Atrial fibrillation type: paroxysmal Qualified Code(s): I48.0 - Paroxysmal atrial fibrillation (11) BPH (benign prostatic hyperplasia) Qualifiers: Lower urinary tract symptom presence: unspecified whether lower urinary tract symptoms present Qualified Code(s): N40.0 - Benign prostatic hyperplasia without lower urinary tract symptoms
[2018-03-03] MEDS: Nystatin 100,000 UNITS/GM Powder 15 GM Bottle TOPICAL SCH (09:50)
[2018-03-03] MEDS: Chlorhexidine 0.12% Oral Kit 15 ML UDC OROPHARYNG SCH ×2 (09:50→20:30)
[2018-03-03] MEDS: Senna/Docusate Sodium 8.6/50 MG Tablet PO SCH ×2 (09:51→20:29)
[2018-03-03] MEDS: Ascorbic Acid 500 MG Tablet PO SCH ×2 (09:51→20:29)
[2018-03-03] MEDS: Pantoprazole Inj 40 MG Vial IV.PUSH SCH (09:51)
--- NOTE | 2018-03-03 10:36 | P.PNNEU ---
Subjective Active Medications: Active Medications Acetaminophen (Tylenol) 650 mg PO Q6H PRN PRN Reason: FEVER Acetaminophen (Tylenol) 650 mg PO UNSCH PRN PRN Reason: SEE LABEL COMMENTS Al Hydroxide/Mg Hydroxide (Milk Of Freda Arriaga) 30 ml PO Q12H PRN PRN Reason: Mild Constipation Albuterol (Albuterol Neb (Prn)) 2.5 mg NEB Q2HR NEB PRN PRN Reason: SHORTNESS OF BREATH/WHEEZING Albuterol (Duoneb Neb (Zak)) 1 ampul NEB Q4HR NEB [facility] Last Admin: 03/03/18 07:41 Dose: 1 ampul Artificial Tears (Tears Naturale Opth Drops) 1 drop EACH EYE Q8H [facility] Last Admin: 03/03/18 06:15 Dose: 1 drop Ascorbic Acid (Vitamin C) 500 mg PO BID [facility] Last Admin: 03/03/18 09:51 Dose: Not Given Bisacodyl (Dulcolax Supp) 10 mg RECTAL DAILY PRN PRN Reason: SEVERE CONSITIPATION Chlorhexidine Gluconate (Chlorhexidine 2% Cloth) 3 pack TOPICAL DAILY@0400 [facility] Stop: 03/04/18 03:59 Last Admin: 03/03/18 04:25 Dose: 3 pack Chlorhexidine Gluconate (Chlorhexidine 2% Cloth) 3 pack TOPICAL DAILY@0400 PRN PRN Reason: Extra cloth needed Stop: 03/04/18 03:59 Chlorhexidine Gluconate (Peridex 0.12% Oral Kit) 15 ml OROPHARYNG BID@0800, 2000 [facility] Last Admin: 03/03/18 09:50 Dose: 15 ml Clonidine HCl (Catapres) 0.1 mg PO UNSCH PRN PRN Reason: SEE LABEL COMMENTS Diphenhydramine HCl (Benadryl) 25 mg PO UNSCH PRN PRN Reason: SEE LABEL COMMENTS Gelatin (Gelfoam 12 Mm/7 Mm Topical) 1 foam TOPICAL PRN PRN PRN Reason: help stop bleeding from site Gentamicin Sulfate (Gentamicin Inj) 20 mg OTHER WITH DIALYSIS PRN PRN Reason: Dwell Gentamycin Lock Last Admin: 03/03/18 09:16 Dose: 20 mg Gentamicin Sulfate (Gentamicin 0.3% Opth Drops) 1 drop EACH EYE Q8H [facility] Stop: 03/04/18 14:59 Last Admin: 03/03/18 06:15 Dose: 1 drop Heparin Sodium (Porcine) (Heparin Inj) 1,000 units OTHER WITH DIALYSIS PRN PRN Reason: Dwell Heparin to Fill Catheter Last Admin: 03/03/18 09:15 Dose: 1,000 units Heparin Sodium (Porcine) (Heparin Inj) 8,000 units OTHER WITH DIALYSIS PRN PRN Reason: for machine prime Hydralazine HCl (Apresoline Inj) 10 mg IV.PUSH Q1H PRN PRN Reason: SYS BP GREATER THAN 170 MMHG Sodium Chloride (Ns Inj) 1,000 mls @ 84 mls/hr IV.CONT .[id number] [facility] Last Admin: 03/03/18 06:54 Dose: 84 mls/hr Piperacillin/Tazobactam/Dextrose (Zosyn 2.25 Gm Premix) 50 mls @ 100 mls/hr IV.SIG Q8H [facility] Last Infusion: 03/03/18 06:13 Dose: Infused Fentanyl (Fentanyl 10 Mcg/Ml Premix Drip) 2,500 mcg in 250 mls @ 5 mls/hr IV.SIG TITRATE PRN; Protocol PRN Reason: Per Protocol Last Titration: 02/28/18 08:00 Dose: 0 mcg/hr, 0 mls/hr Propofol (Diprivan 1000 Mg/100 Ml Inj) 1,000 mg in 100 mls @ 5.171 mls/hr IV.CONT TITRATE PRN; Protocol PRN Reason: Per Protocol Dopamine HCl/Dextrose (Dopamine 800 Mg/500 Ml Premix) 800 mg in 500 mls @ 19.391 mls/hr IV.CONT TITRATE PRN; Protocol PRN Reason: SEE PROTOCOL Last Titration: 02/28/18 15:00 Dose: 0 mcg/kg/min, 0 mls/hr Albumin Human (Flexbumin 25% Inj) 100 mls @ 60 mls/hr IV.SIG WITH DIALYSIS PRN PRN Reason: hypotension / volume replace Last Admin: 03/03/18 09:38 Dose: 100 mls/hr Sodium Chloride (Ns Inj) 1,000 mls @ 0 mls/hr OTHER .Q0M PRN PRN Reason: for prime and rinse back Sodium Chloride (Ns Inj) 1,000 mls @ 200 mls/hr OTHER .Q5H PRN PRN Reason: for dialyzer flush PRN Sodium Chloride (Ns Inj) 1,000 mls @ 0 mls/hr IV.CONT .Q0M PRN PRN Reason: hypotension / volume replace Vancomycin HCl 1,000 mg/ (Sodium Chloride) 250 mls @ 250 mls/hr IV.SIG WITH DIALYSIS [facility] Last Admin: 03/03/18 09:15 Dose: 250 mls/hr Dexmedetomidine HCl 200 mcg/ (Sodium Chloride) 50 mls @ 7.66 mls/hr IV.CONT TITRATE PRN; Protocol PRN Reason: Per Protocol Heparin Sodium/Dextrose (Heparin/D5w 25,000 U/250 Ml) 25,000 unit in 250 mls @ 0 mls/hr IV.CONT TITRATE PRN; Protocol PRN Reason: Per Protocol Last Admin: 03/03/18 06:53 Dose: 1,800 units/hr, 18 mls/hr Lactulose (Lactulose Liq) 30 ml PO DAILY PRN PRN Reason: SEVERE CONSITIPATION Levothyroxine Sodium (Synthroid) 50 mcg PO DAILY@0600 [facility] Last Admin: 03/03/18 05:36 Dose: 50 mcg Mannitol (Mannitol Inj) 12.5 gm IV.PUSH UNSCH PRN PRN Reason: hypotension / volume replace Memantine (Namenda) 5 mg PO QPM [facility] Last Admin: 03/02/18 17:42 Dose: 5 mg Miscellaneous Medication () 1 each OROPHARYNG 0000,0400,1200,1600 [facility] Last Admin: 03/03/18 04:25 Dose: 1 each Multivitamins (Theragran) 1 tab PO DAILY [facility] Last Admin: 03/03/18 09:51 Dose: Not Given Nitroglycerin (Nitro-Bid 2% Oint) 2 inch TOPICAL Q6HR PRN PRN Reason: SYS BP GREATER THAN 170 MMHG Nitroglycerin (Nitrostat Sl) 0.4 mg SL Q5M PRN PRN Reason: CHEST PAIN Nystatin (Mycostatin Powder) 1 applicatio TOPICAL BID [facility] Last Admin: 03/03/18 09:50 Dose: 1 applicatio Ondansetron HCl (Zofran Inj) 4 mg IV.PUSH Q6H PRN PRN Reason: NAUSEA OR VOMITING Ondansetron HCl (Zofran Inj) 4 mg IV.PUSH UNSCH PRN PRN Reason: NAUSEA OR VOMITING Pantoprazole Sodium (Protonix Inj) 40 mg IV.PUSH DAILY [facility] Last Admin: 03/03/18 09:51 Dose: Not Given Senna/Docusate Sodium (Kim-Colace) 1 tab PO BID [facility] Last Admin: 03/03/18 09:51 Dose: Not Given Sennosides (Senokot) 17.2 mg PO Q12H PRN PRN Reason: Moderate Constipation Sodium Chloride (Ns Flush) 2 ml IV.FLUSH BID [facility] Last Admin: 03/03/18 09:50 Dose: 2 ml Sodium Chloride (Ns Flush) 2 ml IV.FLUSH PRN PRN PRN Reason: FLUSH AFTER USING IV ACCESS Sodium Chloride (Ns Flush) 0 ml IV.FLUSH DAILY [facility] Last Admin: 03/03/18 09:51 Dose: Not Given Sodium Chloride (Ns Flush) 0 ml IV.FLUSH PRN PRN PRN Reason: FLUSH AFTER USING IV ACCESS Sodium Chloride (Ns Flush) 5 ml IV.FLUSH PRN PRN PRN Reason: flush each lumen during HD Sterile Water (Free Water) 0 ml G-TUBE Q8HR [facility] Last Admin: 03/03/18 05:36 Dose: 100 ml Terbutaline Sulfate (Brethine Inj) 1 mg SQ ONCE PRN PRN Reason: Extravasation Zinc Sulfate (Zinc-220) 220 mg PO DAILY [facility] Last Admin: 03/03/18 09:51 Dose: Not Given Allergies/Adverse Reactions: Allergies Allergy/AdvReac Type Severity Reaction Status Date / Time daptomycin Allergy Severe Unverified 11/02/16 23:29 Sulfa (Sulfonamide Allergy Mild RASH Unverified 11/02/16 23:29 Antibiotics) Physical Exam Vital signs: Vital Signs 03/02/18 11:00 03/02/18 11:07 03/02/18 12:00 Temperature 99.5 F Pulse Rate 72 72 71 Respiratory Rate 16 14 17 Blood Pressure 124/59 L Pulse Oximetry 97 98 98 03/02/18 12:01 03/02/18 13:00 03/02/18 14:00 Temperature Pulse Rate 71 71 70 Respiratory Rate 17 15 17 Blood Pressure 119/55 L 120/57 L 117/80 Pulse Oximetry 99 98 98 03/02/18 14:39 03/02/18 15:00 03/02/18 16:00 Temperature 99 F Pulse Rate 80 80 78 Respiratory Rate 16 14 8 L Blood Pressure 115/58 L 116/55 L Pulse Oximetry 99 99 03/02/18 17:00 03/02/18 18:00 03/02/18 19:00 Temperature Pulse Rate 69 71 65 Respiratory Rate 8 L 16 15 Blood Pressure 112/51 L 118/57 L Pulse Oximetry 99 99 100 03/02/18 19:01 03/02/18 19:35 03/02/18 19:37 Temperature Pulse Rate 65 66 Respiratory Rate 16 16 17 Blood Pressure 115/51 L Pulse Oximetry 100 100 03/02/18 20:00 03/02/18 21:00 03/02/18 22:00 Temperature 98.9 F Pulse Rate 68 66 67 Respiratory Rate 10 L 8 L 11 L Blood Pressure 113/52 L 107/61 Pulse Oximetry 100 99 99 03/02/18 22:01 03/02/18 23:00 03/02/18 23:32 Temperature Pulse Rate 67 66 68 Respiratory Rate 13 13 12 Blood Pressure 117/55 L 118/58 L Pulse Oximetry 100 99 03/03/18 00:00 03/03/18 00:01 03/03/18 00:44 Temperature 98.5 F Pulse Rate 71 71 70 Respiratory Rate 12 15 13 Blood Pressure 120/66 120/66 106/56 L Pulse Oximetry 99 100 99 03/03/18 01:00 03/03/18 02:00 03/03/18 03:00 Temperature Pulse Rate 66 74 74 Respiratory Rate 13 13 15 Blood Pressure 104/53 L 116/73 Pulse Oximetry 99 98 100 03/03/18 03:13 03/03/18 03:16 03/03/18 03:39 Temperature Pulse Rate 72 72 69 Respiratory Rate 13 14 15 Blood Pressure 103/44 L 101/44 L Pulse Oximetry 99 98 98 03/03/18 04:00 03/03/18 04:01 03/03/18 05:00 Temperature 98.4 F Pulse Rate 69 69 72 Respiratory Rate 13 13 14 Blood Pressure 101/48 L 101/48 L 111/56 L Pulse Oximetry 98 98 100 03/03/18 06:00 03/03/18 07:00 03/03/18 07:41 Temperature Pulse Rate 70 68 72 Respiratory Rate 13 15 17 Blood Pressure 111/65 113/70 Pulse Oximetry 100 99 98 03/03/18 08:00 03/03/18 08:09 03/03/18 08:15 Temperature 98.7 F Pulse Rate 72 75 75 Respiratory Rate 12 11 L 16 Blood Pressure 163/68 H 155/66 H Pulse Oximetry 100 100 100 03/03/18 08:30 03/03/18 08:46 Temperature Pulse Rate 73 74 Respiratory Rate 14 18 Blood Pressure 158/69 H 127/60 Pulse Oximetry 100 99 Intake & Output 03/02/18 03/03/18 03/03/18 18:59 06:59 18:59 Intake Total 1050 / 1050 2025 / 2025 100 / 100 Output Total 400 / 400 550 / 550 Balance 650 / 650 1475 / 1475 100 / 100 Weight 160.6 kg Intake: IV 1050 / 1050 1350 / 1350 100 / 100 Heparin/D5W 25,000 U/250 mL 25, 250 / 250 000 unit In 250 ml @ Per Protocol IV.CONT TITRATE PRN Rx #:[id number] NS Inj 1,000 ML @ 84 mls/hr IV. 1000 / 1000 1000 / 1000 CONT .[id number] [facility] Rx#:[id number] Flexbumin 25% Inj 100 ML @ 60 100 / 100 mls/hr IV.SIG WITH DIALYSIS PRN Rx#:[id number] Zosyn 2.25 GM Premix 50 ML @ 50 / 50 100 / 100 100 mls/hr IV.SIG Q8H [facility] Rx#: [id number] Tube Feeding 475 / 475 Water Bolus Amount 200 / 200 Output: Urine Amount (Catheter) 400 / 400 550 / 550 Indwelling Urethral Catheter 400 / 400 550 / 550 Other: Date of Last Bowel Movement 03/01/18 03/03/18 03/03/18 # Incontinent Bowel Movements 1 Narrative: much more awake alert shows thumbs weakly wiggled toes for nurse earlier generally weak - Urinary Catheter Management Indwelling Urethral Catheter Cath placed during this visit: yes, but has since been removed by the nurse Reason for continuing: Chronic Urinary Retention Insertion date: 02/26/18 Insertion time: 16:00 Removal date: 02/26/18 Removal time: 15:30 Objective Laboratory Results - last 24 hr 03/02/18 03/02/18 03/02/18 11:21 13:06 17:46 WBC RBC Hgb Hct MCV MCH MCHC RDW Plt Count MPV PT 13.3 H INR 1.3 APTT 32.9 H Sodium Potassium Chloride Carbon Dioxide Anion Gap BUN Creatinine Estimated GFR POC Glucose 178 H 160 H Random Glucose Calcium Phosphorus Magnesium Total Bilirubin AST ALT Alkaline Phosphatase Total Protein Albumin 03/02/18 03/03/18 03/03/18 23:47 00:52 05:35 WBC RBC Hgb Hct MCV MCH MCHC RDW Plt Count MPV PT INR APTT 59.2 H D Sodium Potassium Chloride Carbon Dioxide Anion Gap BUN Creatinine Estimated GFR POC Glucose 171 H 177 H Random Glucose Calcium Phosphorus Magnesium Total Bilirubin AST ALT Alkaline Phosphatase Total Protein Albumin 03/03/18 03/03/18 03/03/18 07:19 07:19 07:57 WBC 12.8 H RBC 3.10 L Hgb 8.8 L Hct 26.6 L MCV 85.8 MCH 28.5 MCHC 33.3 RDW 15.1 Plt Count 217 MPV 7.9 PT INR APTT 57.9 H Sodium 141 Potassium 3.6 Chloride 106 Carbon Dioxide 29.2 Anion Gap 6 BUN 31 H Creatinine 3.07 H Estimated GFR 20 L POC Glucose Random Glucose 159 H Calcium 7.8 L Phosphorus Magnesium 2.1 Total Bilirubin 0.3 AST 28 ALT 62 Alkaline Phosphatase 323 H Total Protein 6.6 Albumin 2.3 L 03/03/18 07:57 WBC RBC Hgb Hct MCV MCH MCHC RDW Plt Count MPV PT INR APTT Sodium Potassium Chloride Carbon Dioxide Anion Gap BUN Creatinine Estimated GFR POC Glucose Random Glucose Calcium Phosphorus 3.7 Magnesium Total Bilirubin AST ALT Alkaline Phosphatase Total Protein Albumin Microbiology 03/03/18 02:00 Stool Occult Blood (PADMINI) - Final Stool Hemoccult negative 02/26/18 12:50 Aerobic Blood Culture - Preliminary Blood - Line No growth in 4 days Anaerobic Blood Culture - Preliminary No growth in 4 days 02/26/18 12:55 Aerobic Blood Culture - Preliminary Blood - Line No growth in 4 days Anaerobic Blood Culture - Preliminary No growth in 4 days 02/27/18 23:00 Gram Stain - Final Sputum - Endotracheal Sputum Culture - Final Capnocytophaga species Review/Management - Review/Management Plan: imp improved neuro will follow i suspect will do ok neurowise b12 nl -- 03/03/18 better every day will just make sure mm strength improves Procedures - Arterial Line Size (Gauge): 20
[2018-03-03 10:45] LABS: Methylmalonic Acid 0.4 nmol/mL (<=0.40)
--- NOTE | 2018-03-03 19:00 | P.PN ---
Subjective Interval history: EXTUBATED NAD Physical Exam Vital signs: Vital Signs 03/02/18 19:00 03/02/18 19:01 03/02/18 19:35 Temperature Pulse Rate 65 65 66 Respiratory Rate 15 16 16 Blood Pressure 115/51 L Pulse Oximetry 100 100 03/02/18 19:37 03/02/18 20:00 03/02/18 21:00 Temperature 98.9 F Pulse Rate 68 66 Respiratory Rate 17 10 L 8 L Blood Pressure 113/52 L 107/61 Pulse Oximetry 100 100 99 03/02/18 22:00 03/02/18 22:01 03/02/18 23:00 Temperature Pulse Rate 67 67 66 Respiratory Rate 11 L 13 13 Blood Pressure 117/55 L 118/58 L Pulse Oximetry 99 100 99 03/02/18 23:32 03/03/18 00:00 03/03/18 00:01 Temperature 98.5 F Pulse Rate 68 71 71 Respiratory Rate 12 12 15 Blood Pressure 120/66 120/66 Pulse Oximetry 99 100 03/03/18 00:44 03/03/18 01:00 03/03/18 02:00 Temperature Pulse Rate 70 66 74 Respiratory Rate 13 13 13 Blood Pressure 106/56 L 104/53 L 116/73 Pulse Oximetry 99 99 98 03/03/18 03:00 03/03/18 03:13 03/03/18 03:16 Temperature Pulse Rate 74 72 72 Respiratory Rate 15 13 14 Blood Pressure 103/44 L 101/44 L Pulse Oximetry 100 99 98 03/03/18 03:39 03/03/18 04:00 03/03/18 04:01 Temperature 98.4 F Pulse Rate 69 69 69 Respiratory Rate 15 13 13 Blood Pressure 101/48 L 101/48 L Pulse Oximetry 98 98 98 03/03/18 05:00 03/03/18 06:00 03/03/18 07:00 Temperature Pulse Rate 72 70 68 Respiratory Rate 14 13 15 Blood Pressure 111/56 L 111/65 113/70 Pulse Oximetry 100 100 99 03/03/18 07:41 03/03/18 08:00 03/03/18 08:09 Temperature 98.7 F Pulse Rate 72 72 75 Respiratory Rate 17 12 11 L Blood Pressure 163/68 H Pulse Oximetry 98 100 100 03/03/18 08:15 03/03/18 08:30 03/03/18 08:46 Temperature Pulse Rate 75 73 74 Respiratory Rate 16 14 18 Blood Pressure 155/66 H 158/69 H 127/60 Pulse Oximetry 100 100 99 03/03/18 09:00 03/03/18 09:15 03/03/18 09:30 Temperature Pulse Rate 73 72 69 Respiratory Rate 13 13 14 Blood Pressure 121/59 L 123/61 111/55 L Pulse Oximetry 99 100 100 03/03/18 09:45 03/03/18 10:00 03/03/18 10:01 Temperature Pulse Rate 65 66 71 Respiratory Rate 14 18 21 Blood Pressure 111/54 L 154/120 H Pulse Oximetry 100 100 100 03/03/18 10:03 03/03/18 10:15 03/03/18 10:30 Temperature Pulse Rate 72 72 68 Respiratory Rate 14 13 14 Blood Pressure 125/58 L 103/52 L 101/56 L Pulse Oximetry 100 100 100 03/03/18 10:45 03/03/18 10:53 03/03/18 11:00 Temperature Pulse Rate 69 68 67 Respiratory Rate 14 14 14 Blood Pressure 107/52 L 107/46 L Pulse Oximetry 100 100 100 03/03/18 11:16 03/03/18 11:31 03/03/18 11:45 Temperature Pulse Rate 68 76 74 Respiratory Rate 13 12 14 Blood Pressure 126/56 L 126/58 L 136/56 L Pulse Oximetry 100 99 100 03/03/18 12:00 03/03/18 13:00 03/03/18 13:55 Temperature 98.5 F Pulse Rate 76 70 Respiratory Rate 14 13 Blood Pressure 130/61 115/60 Pulse Oximetry 99 99 95 03/03/18 14:00 03/03/18 14:46 03/03/18 15:00 Temperature Pulse Rate 76 79 Respiratory Rate 10 L 16 Blood Pressure 117/55 L Pulse Oximetry 96 97 96 03/03/18 15:06 03/03/18 15:17 03/03/18 16:00 Temperature 98.9 F Pulse Rate 77 75 80 Respiratory Rate 9 L 14 26 H Blood Pressure 135/58 L 116/59 L Pulse Oximetry 97 98 03/03/18 18:00 Temperature Pulse Rate 76 Respiratory Rate Blood Pressure Pulse Oximetry Intake & Output 03/02/18 03/03/18 03/03/18 18:59 06:59 18:59 Intake Total 1050 / 1050 202 / 2025 750 / 750 Output Total 400 / 400 550 / 550 3650 / 3650 Balance 650 / 650 1475 / 1475 -2900 / -2900 Weight 160.6 kg Intake: IV 1050 / 1050 1350 / 1350 500 / 500 Heparin/D5W 25,000 U/250 mL 25, 250 / 250 000 unit In 250 ml @ Per Protocol IV.CONT TITRATE PRN Rx #:[id number] NS Inj 1,000 ML @ 84 mls/hr IV. 1000 / 1000 1000 / 1000 CONT .[id number] [facility] Rx#:[id number] Flexbumin 25% Inj 100 ML @ 60 200 / 200 mls/hr IV.SIG WITH DIALYSIS PRN Rx#:[id number] Zosyn 2.25 GM Premix 50 ML @ 50 / 50 100 / 100 50 / 50 100 mls/hr IV.SIG Q8H [facility] Rx#: [id number] Vancomycin Inj 1,000 MG In NS 250 / 250 Inj 250 ML @ 250 mls/hr IV.SIG WITH DIALYSIS [facility] Rx#:[id number] Oral 250 / 250 Tube Feeding 475 / 475 Water Bolus Amount 200 / 200 Output: Hemodialysis Amount 3000 / 3000 Urine Amount (Catheter) 400 / 400 550 / 550 650 / 650 Indwelling Urethral Catheter 400 / 400 550 / 550 650 / 650 Other: Date of Last Bowel Movement 03/01/18 03/03/18 03/03/18 # Bowel Movements 1 # Incontinent Bowel Movements 1 Narrative: much more awake alert shows thumbs weakly wiggled toes for nurse earlier generally weak - Urinary Catheter Management Indwelling Urethral Catheter Cath placed during this visit: yes, but has since been removed by the nurse Reason for continuing: Chronic Urinary Retention Insertion date: 02/26/18 Insertion time: 16:00 Removal date: 02/26/18 Removal time: 15:30 Results - Labs CBC & Chem 7: 03/03/18 07:19 03/03/18 07:57 Laboratory Results - last 24 hr 03/01/18 03/02/18 03/03/18 10:07 23:47 00:52 WBC RBC Hgb Hct MCV MCH MCHC RDW Plt Count MPV APTT 59.2 H D Sodium Potassium Chloride Carbon Dioxide Anion Gap BUN Creatinine Estimated GFR POC Glucose 171 H Random Glucose Calcium Phosphorus Magnesium Total Bilirubin AST ALT Alkaline Phosphatase Total Protein Albumin Thiamine 139 Methylmalonic Acid 0.40 03/03/18 03/03/18 03/03/18 05:35 07:19 07:19 WBC 12.8 H RBC 3.10 L Hgb 8.8 L Hct 26.6 L MCV 85.8 MCH 28.5 MCHC 33.3 RDW 15.1 Plt Count 217 MPV 7.9 APTT 57.9 H Sodium Potassium Chloride Carbon Dioxide Anion Gap BUN Creatinine Estimated GFR POC Glucose 177 H Random Glucose Calcium Phosphorus Magnesium Total Bilirubin AST ALT Alkaline Phosphatase Total Protein Albumin Thiamine Methylmalonic Acid 03/03/18 03/03/18 03/03/18 07:57 07:57 11:32 WBC RBC Hgb Hct MCV MCH MCHC RDW Plt Count MPV APTT Sodium 141 Potassium 3.6 Chloride 106 Carbon Dioxide 29.2 Anion Gap 6 BUN 31 H Creatinine 3.07 H Estimated GFR 20 L POC Glucose 133 H Random Glucose 159 H Calcium 7.8 L Phosphorus 3.7 Magnesium 2.1 Total Bilirubin 0.3 AST 28 ALT 62 Alkaline Phosphatase 323 H Total Protein 6.6 Albumin 2.3 L Thiamine Methylmalonic Acid 03/03/18 17:44 WBC RBC Hgb Hct MCV MCH MCHC RDW Plt Count MPV APTT Sodium Potassium Chloride Carbon Dioxide Anion Gap BUN Creatinine Estimated GFR POC Glucose 155 H Random Glucose Calcium Phosphorus Magnesium Total Bilirubin AST ALT Alkaline Phosphatase Total Protein Albumin Thiamine Methylmalonic Acid Microbiology 02/26/18 12:50 Blood - Line Aerobic Blood Culture - Final No growth in 5 days 02/26/18 12:50 Blood - Line Anaerobic Blood Culture - Final No growth in 5 days 02/26/18 12:55 Blood - Line Aerobic Blood Culture - Final No growth in 5 days 02/26/18 12:55 Blood - Line Anaerobic Blood Culture - Final No growth in 5 days 03/03/18 02:00 Stool Stool Occult Blood (PADMINI) - Final Hemoccult negative Assessment and Plan - Plan RESPIRATORY FAILURE RENAL FAILURE SEPSIS MIRTA/CSA PLAN OFF VENT ANTIBIOTICS OUTLOOK POOR BIPAP/SLEEP Procedures - Arterial Line Size (Gauge): 20
--- NOTE | 2018-03-04 04:05 | XR ---
EXAM DATE: 03/04/2018 3:50 AM EST AGE/SEX: 72 years / Male INDICATIONS: Shortness of breath, possible pulmonary disease. CLINICAL DATA: This is the patient's subsequent encounter. Patient reports that signs and symptoms h ave been present for 1 week and indicates a pain score of Nonresponsive. MEDICAL/SURGICAL HISTORY: Cardiovascular disease. Diabetes. Hypertension. Tonsillectomy. [place] [facility] [place]. . FINDINGS: The heart size is enlarged. There is a right internal jugular central line in place. There is hazy de nsity seen over the lungs bilaterally likely related to bilateral effusions. There is silhouetting th e hemidiaphragms. Some degree of atelectasis or consolidation at the bases should also be considered. CONCLUSION: Suspected bilateral effusions and consolidation or atelectasis at the bases. Electronically signed by: Andrea Cerrato MD Board Certified Radiologist 03/04/2018 4:04 AM EST
[2018-03-04] MEDS: Gentamicin 0.3% Opth Drops 5 ML Bottle EACH EYE SCH ×2 (05:33→09:13)
[2018-03-04] MEDS: Artificial Tears Opth Drops 15 ML Bottle EACH EYE SCH ×3 (05:33→15:14)
[2018-03-04] MEDS: Nystatin 100,000 UNITS/GM Powder 15 GM Bottle TOPICAL SCH ×2 (05:33→09:17)
[2018-03-04] MEDS: Levothyroxine 50 MCG Tablet PO SCH (05:34)
[2018-03-04] MEDS: Piperacil/Tazo 2.25 GM Premix 50 ML IV.SIG SCH ×3 (05:34→21:52)
[2018-03-04] MEDS: Oral Hygiene Kit OROPHARYNG SCH ×2 (05:34→15:14)
[2018-03-04] MEDS: Chlorhexidine 0.12% Oral Kit 15 ML UDC OROPHARYNG SCH ×2 (08:53→21:51)
[2018-03-04] MEDS: Ascorbic Acid 500 MG Tablet PO SCH ×2 (09:16→21:52)
[2018-03-04] MEDS: Senna/Docusate Sodium 8.6/50 MG Tablet PO SCH ×2 (09:16→21:51)
[2018-03-04] MEDS: Amiodarone 200 MG Tablet PO SCH (09:16)
[2018-03-04] MEDS: Pantoprazole Inj 40 MG Vial IV.PUSH SCH (09:17)
[2018-03-04 09:37] LABS: Baso # (Auto) 0.1 th/mm3 (0.0-0.2); Baso % (Auto) 0.7 % (0.0-2.0); Eos # (Auto) 0.7 th/mm3 (0.0-0.4); Eos % (Auto) 5.6 % (0.0-4.0); Hematocrit 25.4 % (39.0-51.0); Hemoglobin 8.3 gm/dL (13.0-17.0); Lymph # (Auto) 1.6 th/mm3 (1.0-4.8); Lymph % (Auto) 13.5 % (9.0-44.0); Mean Corpuscular HGB Conc 32.8 % (32.0-36.0); Mean Corpuscular Hemoglobin 28.5 pg (27.0-34.0); Mean Corpuscular Volume 86.7 fL (80.0-100.0); Mean Platelet Volume 8.1 fL (7.0-11.0); Mono # (Auto) 0.8 th/mm3 (0.0-0.9); Mono % (Auto) 6.8 % (0.0-8.0); Neut # (Auto) 8.9 th/mm3 (1.8-7.7); Neut % (Auto) 73.4 % (16.0-70.0); Platelet Count 220 th/mm3 (150-450); Red Blood Count 2.92 mil/mm3 (4.50-5.90); Red Cell Distribution Width 14.6 % (11.6-17.2); White Blood Count 12.2 th/mm3 (4.0-11.0)
[2018-03-04 09:55] LABS: Albumin 2.7 g/dL (3.4-5.0); Anion Gap 8 meq/L (5-15); Aspartate Aminotransferase 26 U/L (15-37); Carbon Dioxide 30.2 meq/L (21.0-32.0); Chloride 104 meq/L (98-107); Glomerular Filtration Rate 28 mL/min (>89); Glucose,Random 121 mg/dL (74-106); Magnesium 1.9 mg/dL (1.5-2.5); Potassium 3.3 meq/L (3.5-5.1); Sodium 142 meq/L (136-145)
--- NOTE | 2018-03-04 10:01 | P.PNNP ---
Subjective Interval history: Patient is alert, no SOB, doing better, not in distress. Physical Exam Vital signs: Vital Signs 03/03/18 10:00 03/03/18 10:01 03/03/18 10:03 Temperature Pulse Rate 66 71 72 Respiratory Rate 18 21 14 Blood Pressure 154/120 H 125/58 L Pulse Oximetry 100 100 100 03/03/18 10:15 03/03/18 10:30 03/03/18 10:45 Temperature Pulse Rate 72 68 69 Respiratory Rate 13 14 14 Blood Pressure 103/52 L 101/56 L 107/52 L Pulse Oximetry 100 100 100 03/03/18 10:53 03/03/18 11:00 03/03/18 11:16 Temperature Pulse Rate 68 67 68 Respiratory Rate 14 14 13 Blood Pressure 107/46 L 126/56 L Pulse Oximetry 100 100 100 03/03/18 11:31 03/03/18 11:45 03/03/18 12:00 Temperature 98.5 F Pulse Rate 76 74 76 Respiratory Rate 12 14 14 Blood Pressure 126/58 L 136/56 L 130/61 Pulse Oximetry 99 100 99 03/03/18 13:00 03/03/18 13:55 03/03/18 14:00 Temperature Pulse Rate 70 76 Respiratory Rate 13 10 L Blood Pressure 115/60 117/55 L Pulse Oximetry 99 95 96 03/03/18 14:46 03/03/18 15:00 03/03/18 15:06 Temperature Pulse Rate 79 77 Respiratory Rate 16 9 L Blood Pressure 135/58 L Pulse Oximetry 97 96 97 03/03/18 15:17 03/03/18 16:00 03/03/18 17:00 Temperature 98.9 F Pulse Rate 75 80 76 Respiratory Rate 14 26 H 18 Blood Pressure 116/59 L 115/50 L Pulse Oximetry 98 97 03/03/18 18:00 03/03/18 19:00 03/03/18 19:55 Temperature Pulse Rate 76 78 75 Respiratory Rate 13 16 18 Blood Pressure 114/58 L 114/58 L Pulse Oximetry 96 97 98 03/03/18 20:00 03/03/18 21:00 03/03/18 22:00 Temperature 98.9 F Pulse Rate 73 73 77 Respiratory Rate 14 13 20 Blood Pressure 114/62 109/72 102/61 Pulse Oximetry 99 97 94 L 03/03/18 23:00 03/03/18 23:20 03/04/18 00:00 Temperature 98.2 F Pulse Rate 74 73 75 Respiratory Rate 18 20 17 Blood Pressure 102/52 L 104/54 L Pulse Oximetry 96 97 03/04/18 01:00 03/04/18 02:00 03/04/18 02:52 Temperature Pulse Rate 74 76 73 Respiratory Rate 15 20 18 Blood Pressure 105/63 108/60 Pulse Oximetry 97 95 03/04/18 03:00 03/04/18 04:00 03/04/18 04:01 Temperature Pulse Rate 74 74 74 Respiratory Rate 13 18 25 H Blood Pressure 106/52 L 117/53 L Pulse Oximetry 96 97 98 03/04/18 05:00 03/04/18 05:01 03/04/18 06:00 Temperature Pulse Rate 72 72 74 Respiratory Rate 14 21 9 L Blood Pressure 142/48 H 126/59 L Pulse Oximetry 97 98 96 03/04/18 07:00 03/04/18 07:53 03/04/18 07:54 Temperature Pulse Rate 72 75 Respiratory Rate 13 21 Blood Pressure 116/55 L Pulse Oximetry 98 97 Intake & Output 03/03/18 03/04/18 03/04/18 18:59 06:59 18:59 Intake Total 1750 / 1750 540 / 540 Output Total 3650 / 3650 775 / 775 Balance -1900 / -1900 -235 / -235 Weight 160.6 kg Intake: IV 1500 / 1500 300 / 300 Heparin/D5W 25,000 U/250 mL 25, 250 / 250 000 unit In 250 ml @ Per Protocol IV.CONT TITRATE PRN Rx #:[id number] NS Inj 1,000 ML @ 84 mls/hr IV. 1000 / 1000 CONT .[id number] ANA Rx#:[id number] Flexbumin 25% Inj 100 ML @ 60 200 / 200 mls/hr IV.SIG WITH DIALYSIS PRN Rx#:[id number] Zosyn 2.25 GM Premix 50 ML @ 50 / 50 50 / 50 100 mls/hr IV.SIG Q8H ANA Rx#: [id number] Vancomycin Inj 1,000 MG In NS 250 / 250 Inj 250 ML @ 250 mls/hr IV.SIG WITH DIALYSIS ANA Rx#:[id number] Oral 250 / 250 240 / 240 Output: Urine 775 / 775 Hemodialysis Amount 3000 / 3000 Urine Amount (Catheter) 650 / 650 Indwelling Urethral Catheter 650 / 650 Gastric Drainage 0 / 0 Oral Orogastric Tube 0 / 0 Other: Date of Last Bowel Movement 03/03/18 03/03/18 # Bowel Movements 1 0 # Incontinent Bowel Movements 0 Narrative: Patient is alert, not in distress. HEENT: TY[place], Non icteric, conjunctiva pale. Neck: Supple, JVD not elevated. Lungs, Bilateral scattered rales and few rhonchi. Abd. Distended, non tender. Ext; Mild leg edema. - Urinary Catheter Management Indwelling Urethral Catheter Cath placed during this visit: yes, but has since been removed by the nurse Reason for continuing: Chronic Urinary Retention Insertion date: 02/26/18 Insertion time: 16:00 Removal date: 02/26/18 Removal time: 15:30 Assessment and Plan - Assessment (1) Acute renal failure Code(s): N17.9 - Acute kidney failure, unspecified Status: Acute (2) Chronic kidney disease Code(s): N18.9 - Chronic kidney disease, unspecified Status: Acute (3) Shock Code(s): R57.9 - Shock, unspecified Status: Acute (4) BMI 50.0-59.9, adult Code(s): Z68.43 - Body mass index (BMI) 50-59.9, adult Status: Chronic (5) 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 Code(s): E11.9 - Type 2 diabetes mellitus without complications Status: Chronic Qualifiers: 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 type: type 2 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 snf insulin use: with termite technician use 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 complication status: with kidney complications 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 complication detail: with other kidney complication Qualified Code(s): E11.29 - Type 2 diabetes mellitus with other diabetic kidney complication; Z79.4 - [facility] (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 - Plan Patient is alert, breathing is better. Dialysis done yesterday. Has been non oliguric. Continue supportive care Continue to monitor his progress. Avoid Nephrotoxins and watch for renal recovery. Procedures - Arterial Line Size (Gauge): 20
[2018-03-04 10:03] LABS: Alanine Aminotransferase 48 U/L (12-78); Alkaline Phosphatase 280 U/L (45-117); Blood Urea Nitrogen 18 mg/dL (7-18); Phosphorus 2.9 mg/dL (2.5-4.9); Total Protein 6.3 g/dL (6.4-8.2)
--- NOTE | 2018-03-04 10:07 | P.PNCC ---
Subjective Subjective Remarks/Hospital Course: This is a 72-year-old male. Admission 02/26/2018. Past medical includes morbid obesity, depression, dementia, coronary artery disease, hypertension, hyperlipidemia, diabetes mellitus, atrial fibrillation currently rate controlled, hypothyroidism, peripheral neuropathy, chronic kidney disease stage III-IV, chronic opiate use and chronic anticoagulation with rivaroxaban. Patient is from the [facility] and rehab [facility]. He was originally sent to [facility] emergency department the chief diagnosis of acute altered mental status since yesterday. EMS was called and found the patient have initial heart rate in the 30s with a blood pressure 120/60 manually, they give a half a milligram of atropine which brought his heart rate into the 40s and his blood pressure 96/72. His initial GCS on scene was 12, according to EMS the shelter reported that normally he is conversant and able to answer questions appropriately. Upon arrival, a central line and arterial line replaced in the right femoral vein/artery is appropriate and received 1 L normal saline. Currently on norepinephrine drip for mean arterial pressure greater than 65. Patient had normal white blood cell count. Potassium 7 with peaked T waves. Patient received D50, insulin and calcium chloride. Nephrology was consulted and recommended hemodialysis. Patient has scans of the brain, chest, abdomen pelvis pain-free chest x-ray revealed possible right pleural effusion versus infiltrate with aspiration. Patient still quite confused however is arousable and will follow commands 02/27: Intubated yesterday with sonorous breath sounds worsening altered mental status on arrival to floor. A right IJ hemodialysis catheter was placed in place and received emergent hemodialysis per potassium currently 5.0. Will attempt thoracentesis today to remove right pleural effusion and possible extubation afterwards. If not, will initiate tube feeding today. 02/28: -1500 cc cloudy yellow fluid removed with right-sided thoracentesis yesterday. Appears exudative by light's criteria. Attempting CPAP trials today with attempt extubate. -2500 cc with hemodialysis yesterday.. 03/01: Afebrile. MRI brain yesterday evening no acute findings. EEG revealed mild slowing but no epileptiform activity. MRI C-spine however did reveal C2/C ventral cord disc at left thickening. Thecal sac 4 mm. Patient is moving all 4 extremities and is more arousable today. Midazolam drip off since yesterday morning. 03/02: Resting in bed. More arousable today. Looks like to when he states his name on both sides. Weakly squeezes hands. Afebrile. 03/03: More arousable today. Follow commands. Currently hemodialysis. Will attempt extubation post dialysis. Tolerating tube feeds. SUBJECTIVE: 03/04: Afebrile. Extubated yesterday without complication. Currently on 4 L nasal cannula. Advancing diet. No complaints of same. Copious thick yellow secretions/suctioned with Yankauer catheter at bedside Objective Vital Signs / I&O: Vital Signs 03/03/18 10:15 03/03/18 10:30 03/03/18 10:45 Temperature Pulse Rate 72 68 69 Respiratory Rate 13 14 14 Blood Pressure 103/52 L 101/56 L 107/52 L Pulse Oximetry 100 100 100 03/03/18 10:53 03/03/18 11:00 03/03/18 11:16 Temperature Pulse Rate 68 67 68 Respiratory Rate 14 14 13 Blood Pressure 107/46 L 126/56 L Pulse Oximetry 100 100 100 03/03/18 11:31 03/03/18 11:45 03/03/18 12:00 Temperature 98.5 F Pulse Rate 76 74 76 Respiratory Rate 12 14 14 Blood Pressure 126/58 L 136/56 L 130/61 Pulse Oximetry 99 100 99 03/03/18 13:00 03/03/18 13:55 03/03/18 14:00 Temperature Pulse Rate 70 76 Respiratory Rate 13 10 L Blood Pressure 115/60 117/55 L Pulse Oximetry 99 95 96 03/03/18 14:46 03/03/18 15:00 03/03/18 15:06 Temperature Pulse Rate 79 77 Respiratory Rate 16 9 L Blood Pressure 135/58 L Pulse Oximetry 97 96 97 03/03/18 15:17 03/03/18 16:00 03/03/18 17:00 Temperature 98.9 F Pulse Rate 75 80 76 Respiratory Rate 14 26 H 18 Blood Pressure 116/59 L 115/50 L Pulse Oximetry 98 97 03/03/18 18:00 03/03/18 19:00 03/03/18 19:55 Temperature Pulse Rate 76 78 75 Respiratory Rate 13 16 18 Blood Pressure 114/58 L 114/58 L Pulse Oximetry 96 97 98 03/03/18 20:00 03/03/18 21:00 03/03/18 22:00 Temperature 98.9 F Pulse Rate 73 73 77 Respiratory Rate 14 13 20 Blood Pressure 114/62 109/72 102/61 Pulse Oximetry 99 97 94 L 03/03/18 23:00 03/03/18 23:20 03/04/18 00:00 Temperature 98.2 F Pulse Rate 74 73 75 Respiratory Rate 18 20 17 Blood Pressure 102/52 L 104/54 L Pulse Oximetry 96 97 03/04/18 01:00 03/04/18 02:00 03/04/18 02:52 Temperature Pulse Rate 74 76 73 Respiratory Rate 15 20 18 Blood Pressure 105/63 108/60 Pulse Oximetry 97 95 03/04/18 03:00 03/04/18 04:00 03/04/18 04:01 Temperature Pulse Rate 74 74 74 Respiratory Rate 13 18 25 H Blood Pressure 106/52 L 117/53 L Pulse Oximetry 96 97 98 03/04/18 05:00 03/04/18 05:01 03/04/18 06:00 Temperature Pulse Rate 72 72 74 Respiratory Rate 14 21 9 L Blood Pressure 142/48 H 126/59 L Pulse Oximetry 97 98 96 03/04/18 07:00 03/04/18 07:53 03/04/18 07:54 Temperature Pulse Rate 72 75 Respiratory Rate 13 21 Blood Pressure 116/55 L Pulse Oximetry 98 97 Intake & Output 03/03/18 03/04/18 03/04/18 18:59 06:59 18:59 Intake Total 1750 / 1750 540 / 540 Output Total 3650 / 3650 775 / 775 Balance -1900 / -1900 -235 / -235 Weight 160.6 kg Intake: IV 1500 / 1500 300 / 300 Heparin/D5W 25,000 U/250 mL 25, 250 / 250 000 unit In 250 ml @ Per Protocol IV.CONT TITRATE PRN Rx #:[id number] NS Inj 1,000 ML @ 84 mls/hr IV. 1000 / 1000 CONT .[id number] ANA Rx#:[id number] Flexbumin 25% Inj 100 ML @ 60 200 / 200 mls/hr IV.SIG WITH DIALYSIS PRN Rx#:[id number] Zosyn 2.25 GM Premix 50 ML @ 50 / 50 50 / 50 100 mls/hr IV.SIG Q8H ANA Rx#: [id number] Vancomycin Inj 1,000 MG In NS 250 / 250 Inj 250 ML @ 250 mls/hr IV.SIG WITH DIALYSIS ANA Rx#:[id number] Oral 250 / 250 240 / 240 Output: Urine 775 / 775 Hemodialysis Amount 3000 / 3000 Urine Amount (Catheter) 650 / 650 Indwelling Urethral Catheter 650 / 650 Gastric Drainage 0 / 0 Oral Orogastric Tube 0 / 0 Other: Date of Last Bowel Movement 03/03/18 03/03/18 # Bowel Movements 1 0 # Incontinent Bowel Movements 0 Result Diagrams: 03/04/18 08:33 03/04/18 08:33 Other Results: Microbiology 02/26/18 12:50 Blood - Line Aerobic Blood Culture - Final No growth in 5 days 02/26/18 12:50 Blood - Line Anaerobic Blood Culture - Final No growth in 5 days 02/26/18 12:55 Blood - Line Aerobic Blood Culture - Final No growth in 5 days 02/26/18 12:55 Blood - Line Anaerobic Blood Culture - Final No growth in 5 days 03/03/18 02:00 Stool Stool Occult Blood (PADMINI) - Final Hemoccult negative 02/27/18 23:00 Sputum - Endotracheal Gram Stain - Final 02/27/18 23:00 Sputum - Endotracheal Sputum Culture - Final Capnocytophaga species 02/26/18 16:00 Catheterized Urine Urine Culture - Final No growth in 48 hours 02/26/18 12:50 Clean Catch Urine Urine Culture - Final No growth in 48 hours Imaging: Chest CT 02/26/18 00:00 CONCLUSION: 1. Bilateral pleural effusions being moderate on the right and mild on the left. 2. Suspected right lower lobe atelectasis likely from the effusion versus consolidation. 3. Milder consolidation or atelectasis at the left base. 4. Compression deformity of the T4 vertebral body. 5. Edema in the soft tissues being asymmetric and worse on the right. Chest X-Ray 02/26/18 00:00 CONCLUSION: Bibasilar areas of atelectasis, consolidation and/or effusion being worse on the right. ET tube, NG tube and right internal jugular central line are well placed. Venous Doppler Study 02/26/18 00:00 CONCLUSION: No venous thrombosis is identified within either lower extremity. Chest X-Ray 02/26/18 10:40 CONCLUSION: Diffuse density throughout the right lung which may represent a pleural effusion with underlying airspace disease. Moderate cardiomegaly Advanced arthropathy of the shoulder joints. Abdomen/Pelvis CT 02/26/18 11:52 CONCLUSION: 1. Limited study secondary to heterogeneity throughout the exam likely secondary to body habitus. 2. Heterogeneity to the liver with a possible 5 cm mass in the lateral segment the left lobe of the liver. This could be further evaluated with a better contrast-enhanced CT or MRI examination the future. 3. Suspected anasarca being worse on the right. Head CT 02/26/18 11:52 CONCLUSION: 1. No acute abnormality. 2. Mild cortical atrophy. . Thoracentesis CT 02/27/18 00:00 CONCLUSION: 1. Uncomplicated CT-guided thoracentesis. Chest X-Ray 02/28/18 06:00 CONCLUSION: Decreased right lung opacity. Persistent diffuse hazy left lung opacity with likely superimposed parenchymal opacity and pleural effusion. Cervical Spine MRI 02/28/18 14:24 CONCLUSION: 1. Multilevel protrusions causing severe canal stenosis at C2-3. 2. Mild canal stenosis at C3-4 and C7-T1. 3. Moderate canal stenosis at C4-5, C5-6 and 6 7 levels. Head MRI 02/28/18 14:24 CONCLUSION: 1. No acute hemorrhage, mass or evidence of infarction. 2. Atrophy and chronic small vessel ischemic change. 3. Mucosal thickening and small air-fluid levels in the sphenoid sinuses and ethmoidal air cells which could indicate acute sinusitis. Chest X-Ray 03/01/18 00:01 CONCLUSION: More symmetric, bilateral pulmonary opacities again seen likely representing a combination of parenchymal opacity and pleural effusion. The opacity has increased on the right and is unchanged on the left. Chest X-Ray 03/04/18 06:00 CONCLUSION: Suspected bilateral effusions and consolidation or atelectasis at the bases. Objective Remarks: GENERAL: 72-year-old male currently cannula 4 L in no acute distress SKIN: Warm and dry. Chronic venous stasis bilateral lower extremities HEAD: Atraumatic. Normocephalic. EYES: Pupils equal and round. No scleral icterus. No injection or drainage. ENT: No nasal bleeding or discharge. Mucous membranes pink and moist. NECK: Trachea midline. No JVD. Right IJ hemodialysis catheter is clean dry and intact CARDIOVASCULAR: Regular rate and rhythm. S1, S2 no S4. RESPIRATORY: Minutes breath sounds due to body habitus. No wheezing appreciated.. GASTROINTESTINAL: Abdomen soft, non-tender, obese with large pannus.. MUSCULOSKELETAL: Extremities with trace to 1+ bilateral lower extremity edema. NEUROLOGICAL: Moves all 4 extremity spontaneously. Strength slightly weaker in the lower extremities. Assessment and Plan - Problem List (1) Depression Code(s): F32.9 - Major depressive disorder, single episode, unspecified Status : Chronic (2) Obstructive sleep apnea Code(s): G47.33 - Obstructive sleep apnea (adult) (pediatric) Status: Chronic (3) BMI 50.0-59.9, adult Code(s): Z68.43 - Body mass index (BMI) 50-59.9, adult Status: Chronic (4) 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 Code(s): E11.9 - Type 2 diabetes mellitus without complications Status: Chronic (5) Coronary artery disease Code(s): I25.10 - Atherosclerotic heart disease of havasupai coronary artery without angina pectoris Status: Chronic (6) History of essential hypertension Code(s): Z86.79 - Personal history of other diseases of the circulatory system Status: Chronic (7) Hyperlipidemia Code(s): E78.5 - Hyperlipidemia, unspecified Status: Chronic (8) Peripheral neuropathy Code(s): G62.9 - Polyneuropathy, unspecified Status: Chronic (9) Atrial fibrillation Code(s): I48.91 - Unspecified atrial fibrillation Status: Chronic (10) Chronic narcotic use Code(s): F11.90 - Opioid use, unspecified, uncomplicated Status: Chronic (11) BPH (benign prostatic hyperplasia) Code(s): N40.0 - Benign prostatic hyperplasia without lower urinary tract symptoms Status: Chronic (12) Hyponatremia Code(s): E87.1 - Hypo-osmolality and hyponatremia Status: Acute (13) Normocytic anemia Code(s): D64.9 - Anemia, unspecified Status: Acute (14) Acute hyperkalemia Code(s): E87.5 - Hyperkalemia Status: Acute (15) Acute hypotension Code(s): I95.9 - Hypotension, unspecified Status: Acute (16) Shock Code(s): R57.9 - Shock, unspecified Status: Acute (17) Elevated transaminase level Code(s): R74.0 - Nonspecific elevation of levels of transaminase and lactic acid dehydrogenase [LDH] Status: Acute (18) Elevated TSH Code(s): R79.89 - Other specified abnormal findings of blood chemistry Status : Acute (19) Elevated alkaline phosphatase level Code(s): R74.8 - Abnormal levels of other serum enzymes Status: Acute (20) Hypoalbuminemia Code(s): E88.09 - Other disorders of plasma-protein metabolism, not elsewhere classified Status: Acute (21) Bradycardia Code(s): R00.1 - Bradycardia, unspecified Status: Acute - Assessment and Plan Plan: Neuro/Psych: Acute toxic metabolic encephalopathy History of TIA Depression/anxiety Chronic peripheral neuropathy secondary to diabetes mellitus Dementia disorder NOS Holding gabapentin 600 mg 3 times daily for peripheral neuropathy. Resume at 200 mg 3 times daily 03/04 Holding scheduled morphine 15 mg every 12 hours for chronic pain Holding duloxetine 20 mg daily for depression. Resume clinically indicated Resume memantine 5 mg at night for dementia Acetaminophen 650 mg every 6 hours as needed fever Hydrocodone/acetaminophen 5/325 1 tablet every 4 hours as needed pain 1 through 5 Morphine sulfate 2 mg IV every 2 hours as needed pain [address] brain revealed no acute intracranial findings 02/26. Ammonia level 20 EEG 02/28 revealed mild slowing. No epileptic activity. MR brain 1211 revealed no acute intracranial findings See musculoskeletal MR C-spine She neurology consult. Thiamine, B12 and MMA pending. CV: Sinus bradycardia -resolved Paroxysmal atrial fibrillation currently normal sinus rhythm History of essential hypertension HyperLipidemia coronary artery disease Congestive heart failure unknown etiology Receive 0.5 mg atropine in route. Received 1 L normal saline crystalloid bolus. Dopamine drip is off Holding atorvastatin 20 mg a day for dyslipidemia. Resume clinically indicated Holding amiodarone 200 mg daily for atrial fibrillation with hyperkalemia. Resume clinically indicated. Holding amlodipine 5 mg daily metoprolol tartrate 205mg twice daily for hypertension resume clinically indicated Holding olmesartan 20 mg daily with hyper kalemia and acute kidney injury. Initial troponin 0 0.02. Trend was negative. 02/28 2D echocardiogram -EF 55-60%. LVH. Moderate MR. PA P 58 mmHg Resp: History of obstructive sleep apnea Right greater than left pleural effusion/exudative by light's criteria Acute respiratory failure Currently on PRVC ventilation Head of bed at 30 degrees Ventilator bundle Albuterol/ipratropium aerosols every 4 hours with albuterol aerosols every 2 as needed dyspnea Will likely need CPAP once extubated Spontaneous breathing trials and clinically indicated CT thoracentesis ordered right pleural effusion. -[address] chest revealed right greater than left pleural effusion. Anasarca.. Atelectasis right lower lobe Will attempt CPAP trial today to extubate. Today 03/03 GI: Elevated transaminases Elevated alkaline phosphatase Hospital left liver mass 5 cm Hypoalbuminemia Monitor transaminases. Check hepatitis panel was negative Tube feeds on hold for possible extubation pantoprazole for GI prophylaxis DC sodium/senna 1 tablet twice daily for bowel regimen. Avoid hepatotoxic medications Follow-up on CT abdomen/pelvis revealed small left liver mass. Follow-up MRI of liver in future : BPH Holding alfazosin 10 mg daily for BPH while hypotensive on vasopressors Maintain Orozco catheter Endo: 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 Hypothyroidism with elevated TSH On levothyroxine 50 mcg daily. Continue TSH was 5.02 Sliding scale insulin with Accu-Cheks to maintain euglycemia every 6 hours/ aspart insulin low regimen On sliding scale lispro insulin at home Renal: Acute kidney injury in the setting of chronic kidney disease stage IIIb Maintain Orozco catheter Monitor urine output Accurate I's and O's Check urine eosinophils, sodium and creatinine Will receive hemodialysis 12/27. Also received 02/27. Per nephrology's request. Dr. Leal has been consulted. Defer dialysis to him in future -2500 cc 02/27 950 cc urine output past 24 hours Heme: Leukocytosis Normocytic anemia Chronic rivaroxaban use -holding 48 hours pending thoracentesis Elevated INR/PTT Monitor CBC daily. Follow trends. No indication for transfusion of blood products at this time. Resume baseline anticoagulant after CT head ID: Capnocytophaga sputum positive Blood cultures x2, and UA 02/26 no growth Sputum revealed gram-positive cocci in pairs and clusters 02/27. 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 Received acute hemodialysis today which will correct the underlying electrolyte derangement Potassium currently within normal limits. Recheck in a.m. MSK: Elevated BMI greater than 50 Bilateral lower extremity heel ulcers Cervical canal stenosis Weight loss encouraged PT evaluate and Wound care evaluate and treat MR C-spine revealed C2/3 ventral cord with LF thickening. Thecal sac 4 mm. Moderate C4/5 C5/6 and C6-7 stenosis. Mild C3/4 and C7/T1 stenosis Access -Right femoral CVL and right femoral arterial CVL day 3 placed the ED by . Discontinued 03/01 r -ight IJ dialysis catheter day #5 Prophylaxis -GI -pantoprazole -DVT -SCD heparin gtt Critical care time 35 minutes Procedures - Arterial Line Size (Gauge): 20 (1) Depression Qualifiers: Depression Type: major depressive disorder Major depression recurrence: recurrent Active/Remission status: remission status unspecified Qualified Code (s): F33.9 - Major depressive disorder, recurrent, unspecified (4) 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 Qualifiers: 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 type: type 2 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 longterm insulin use: with brick burner head use 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 complication status: with kidney complications 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 complication detail: with other kidney complication Qualified Code(s): E11.29 - Type 2 diabetes mellitus with other diabetic kidney complication; Z79.4 - media assistant (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 (5) Coronary artery disease Qualifiers: Coronary Disease-Associated Artery/Lesion type: unspecified vessel or lesion type [place] vs. transplanted heart: havasupai heart Associated angina: without angina Qualified Code(s): I25.10 - Atherosclerotic heart disease of havasupai coronary artery without angina pectoris (7) Hyperlipidemia Qualifiers: Hyperlipidemia type: unspecified Qualified Code(s): E78.5 - Hyperlipidemia, unspecified (8) Peripheral neuropathy Qualifiers: Peripheral neuropathy type: polyneuropathy, unspecified Qualified Code(s): G62.9 - Polyneuropathy, unspecified (9) Atrial fibrillation Qualifiers: Atrial fibrillation type: paroxysmal Qualified Code(s): I48.0 - Paroxysmal atrial fibrillation (11) BPH (benign prostatic hyperplasia) Qualifiers: Lower urinary tract symptom presence: unspecified whether lower urinary tract symptoms present Qualified Code(s): N40.0 - Benign prostatic hyperplasia without lower urinary tract symptoms
[2018-03-04] MEDS: Heparin Drip 25,000 UNIT/250 ML BAG IV.CONT PRN ×2 (11:06→22:33)
--- NOTE | 2018-03-04 14:41 | P.PN ---
Subjective Interval history: ALERT ON O2 NC NO SOB Physical Exam Vital signs: Vital Signs 03/03/18 14:46 03/03/18 15:00 03/03/18 15:06 Temperature Pulse Rate 79 77 Respiratory Rate 16 9 L Blood Pressure 135/58 L Pulse Oximetry 97 96 97 03/03/18 15:17 03/03/18 16:00 03/03/18 17:00 Temperature 98.9 F Pulse Rate 75 80 76 Respiratory Rate 14 26 H 18 Blood Pressure 116/59 L 115/50 L Pulse Oximetry 98 97 03/03/18 18:00 03/03/18 19:00 03/03/18 19:55 Temperature Pulse Rate 76 78 75 Respiratory Rate 13 16 18 Blood Pressure 114/58 L 114/58 L Pulse Oximetry 96 97 98 03/03/18 20:00 03/03/18 21:00 03/03/18 22:00 Temperature 98.9 F Pulse Rate 73 73 77 Respiratory Rate 14 13 20 Blood Pressure 114/62 109/72 102/61 Pulse Oximetry 99 97 94 L 03/03/18 23:00 03/03/18 23:20 03/04/18 00:00 Temperature 98.2 F Pulse Rate 74 73 75 Respiratory Rate 18 20 17 Blood Pressure 102/52 L 104/54 L Pulse Oximetry 96 97 03/04/18 01:00 03/04/18 02:00 03/04/18 02:52 Temperature Pulse Rate 74 76 73 Respiratory Rate 15 20 18 Blood Pressure 105/63 108/60 Pulse Oximetry 97 95 03/04/18 03:00 03/04/18 04:00 03/04/18 04:01 Temperature Pulse Rate 74 74 74 Respiratory Rate 13 18 25 H Blood Pressure 106/52 L 117/53 L Pulse Oximetry 96 97 98 03/04/18 05:00 03/04/18 05:01 03/04/18 06:00 Temperature Pulse Rate 72 72 74 Respiratory Rate 14 21 9 L Blood Pressure 142/48 H 126/59 L Pulse Oximetry 97 98 96 03/04/18 07:00 03/04/18 07:53 03/04/18 07:54 Temperature Pulse Rate 72 75 Respiratory Rate 13 21 Blood Pressure 116/55 L Pulse Oximetry 98 97 03/04/18 08:00 03/04/18 10:00 03/04/18 11:22 Temperature 99.4 F Pulse Rate 72 79 77 Respiratory Rate 9 L 20 Blood Pressure 118/57 L Pulse Oximetry 100 03/04/18 12:00 03/04/18 14:00 Temperature 99.5 F Pulse Rate 83 82 Respiratory Rate 26 H Blood Pressure 113/53 L Pulse Oximetry 96 Intake & Output 03/03/18 03/04/18 03/04/18 18:59 06:59 18:59 Intake Total 1750 / 1750 540 / 540 2049 Output Total 3650 / 3650 775 / 775 Balance -1900 / -1900 -235 / -235 2049 Weight 160.6 kg Intake: IV 1500 / 1500 300 / 300 2049 DOPamine 800 MG/500 ML Premix 500 / 500 800 mg In 500 ml @ 3 MCG/KG/MIN 19.391 mls/hr IV.CONT TITRATE PRN Rx#:[id number] Heparin/D5W 25,000 U/250 mL 25, 250 / 250 250 / 250 000 unit In 250 ml @ Per Protocol IV.CONT TITRATE PRN Rx #:[id number] NS Inj 1,000 ML @ 84 mls/hr IV. 1000 / 1000 1000 / 1000 CONT .[id number] ANA Rx#:[id number] Flexbumin 25% Inj 100 ML @ 60 200 / 200 0 / 0 mls/hr IV.SIG WITH DIALYSIS PRN Rx#:[id number] Zosyn 2.25 GM Premix 50 ML @ 50 / 50 50 / 50 50 / 50 100 mls/hr IV.SIG Q8H ANA Rx#: [id number] Vancomycin Inj 1,000 MG In NS 250 / 250 0 / 0 Inj 250 ML @ 250 mls/hr IV.SIG WITH DIALYSIS ANA Rx#:[id number] Oral 250 / 250 240 / 240 Output: Urine 775 / 775 Hemodialysis Amount 3000 / 3000 Urine Amount (Catheter) 650 / 650 Indwelling Urethral Catheter 650 / 650 Gastric Drainage 0 / 0 Oral Orogastric Tube 0 / 0 Other: Date of Last Bowel Movement 03/03/18 03/03/18 03/03/18 # Bowel Movements 1 0 # Incontinent Bowel Movements 0 Narrative: Patient is alert, not in distress. HEENT: TYREE, Non icteric, conjunctiva pale. Neck: Supple, JVD not elevated. Lungs, Bilateral scattered rales and few rhonchi. Abd. Distended, non tender. Ext; Mild leg edema. - Urinary Catheter Management Indwelling Urethral Catheter Cath placed during this visit: yes, but has since been removed by the nurse Reason for continuing: Chronic Urinary Retention Insertion date: 02/26/18 Insertion time: 16:00 Removal date: 02/26/18 Removal time: 15:30 Results - Labs CBC & Chem 7: 03/04/18 08:33 03/04/18 08:33 Laboratory Results - last 24 hr 03/03/18 03/03/18 03/04/18 17:44 23:06 05:31 WBC RBC Hgb Hct MCV MCH MCHC RDW Plt Count MPV Neut % (Auto) Lymph % (Auto) [place] % (Auto) Eos % (Auto) Baso % (Auto) Neut # (Auto) Lymph # (Auto) [place] # (Auto) Eos # (Auto) Baso # (Auto) WBC Differential Differential Comment APTT Sodium Potassium Chloride Carbon Dioxide Anion Gap BUN Creatinine Estimated GFR POC Glucose 155 H 153 H 121 H Random Glucose Calcium Phosphorus Magnesium Total Bilirubin AST ALT Alkaline Phosphatase Total Protein Albumin 03/04/18 03/04/18 03/04/18 08:33 08:33 08:33 WBC 12.2 H RBC 2.92 L Hgb 8.3 L Hct 25.4 L MCV 86.7 MCH 28.5 MCHC 32.8 RDW 14.6 Plt Count 220 MPV 8.1 Neut % (Auto) 73.4 H Lymph % (Auto) 13.5 [place] % (Auto) 6.8 Eos % (Auto) 5.6 H Baso % (Auto) 0.7 Neut # (Auto) 8.9 H Lymph # (Auto) 1.6 [place] # (Auto) 0.8 Eos # (Auto) 0.7 H Baso # (Auto) 0.1 WBC Differential . Differential Comment Auto diff final APTT 50.8 H Sodium 142 Potassium 3.3 L Chloride 104 Carbon Dioxide 30.2 Anion Gap 8 BUN 18 Creatinine 2.31 H Estimated GFR 28 L POC Glucose Random Glucose 121 H Calcium 8.0 L Phosphorus 2.9 Magnesium 1.9 Total Bilirubin 0.5 AST 26 ALT 48 Alkaline Phosphatase 280 H Total Protein 6.3 L Albumin 2.7 L 03/04/18 14:18 WBC RBC Hgb Hct MCV MCH MCHC RDW Plt Count MPV Neut % (Auto) Lymph % (Auto) [place] % (Auto) Eos % (Auto) Baso % (Auto) Neut # (Auto) Lymph # (Auto) [place] # (Auto) Eos # (Auto) Baso # (Auto) WBC Differential Differential Comment APTT Sodium Potassium Chloride Carbon Dioxide Anion Gap BUN Creatinine Estimated GFR POC Glucose 143 H Random Glucose Calcium Phosphorus Magnesium Total Bilirubin AST ALT Alkaline Phosphatase Total Protein Albumin Microbiology 02/26/18 12:50 Blood - Line Aerobic Blood Culture - Final No growth in 5 days 02/26/18 12:50 Blood - Line Anaerobic Blood Culture - Final No growth in 5 days 02/26/18 12:55 Blood - Line Aerobic Blood Culture - Final No growth in 5 days 02/26/18 12:55 Blood - Line Anaerobic Blood Culture - Final No growth in 5 days - Imaging Impressions Chest X-Ray 03/04/18 06:00 CONCLUSION: Suspected bilateral effusions and consolidation or atelectasis at the bases. Assessment and Plan - Plan RESPIRATORY FAILURE RENAL FAILURE SEPSIS MIRTA/CSA PLAN OFF VENT ANTIBIOTICS BIPAP/SLEEP Procedures - Arterial Line Size (Gauge): 20
[2018-03-04] MEDS: Gabapentin 100 MG Capsule PO SCH ×2 (15:14→21:51)
--- NOTE | 2018-03-04 16:01 | P.PN ---
Physical Exam Vital signs: Vital Signs 03/03/18 17:00 03/03/18 18:00 03/03/18 19:00 Temperature Pulse Rate 76 76 78 Respiratory Rate 18 13 16 Blood Pressure 115/50 L 114/58 L 114/58 L Pulse Oximetry 97 96 97 03/03/18 19:55 03/03/18 20:00 03/03/18 21:00 Temperature 98.9 F Pulse Rate 75 73 73 Respiratory Rate 18 14 13 Blood Pressure 114/62 109/72 Pulse Oximetry 98 99 97 03/03/18 22:00 03/03/18 23:00 03/03/18 23:20 Temperature Pulse Rate 77 74 73 Respiratory Rate 20 18 20 Blood Pressure 102/61 102/52 L Pulse Oximetry 94 L 96 03/04/18 00:00 03/04/18 01:00 03/04/18 02:00 Temperature 98.2 F Pulse Rate 75 74 76 Respiratory Rate 17 15 20 Blood Pressure 104/54 L 105/63 108/60 Pulse Oximetry 97 97 95 03/04/18 02:52 03/04/18 03:00 03/04/18 04:00 Temperature Pulse Rate 73 74 74 Respiratory Rate 18 13 18 Blood Pressure 106/52 L Pulse Oximetry 96 97 03/04/18 04:01 03/04/18 05:00 03/04/18 05:01 Temperature Pulse Rate 74 72 72 Respiratory Rate 25 H 14 21 Blood Pressure 117/53 L 142/48 H Pulse Oximetry 98 97 98 03/04/18 06:00 03/04/18 07:00 03/04/18 07:53 Temperature Pulse Rate 74 72 75 Respiratory Rate 9 L 13 21 Blood Pressure 126/59 L 116/55 L Pulse Oximetry 96 98 03/04/18 07:54 03/04/18 08:00 03/04/18 10:00 Temperature 99.4 F Pulse Rate 72 79 Respiratory Rate 9 L Blood Pressure 118/57 L Pulse Oximetry 97 100 03/04/18 11:22 03/04/18 12:00 03/04/18 14:00 Temperature 99.5 F Pulse Rate 77 83 82 Respiratory Rate 20 26 H Blood Pressure 113/53 L Pulse Oximetry 96 03/04/18 15:59 Temperature Pulse Rate 90 Respiratory Rate 20 Blood Pressure Pulse Oximetry Intake & Output 03/03/18 03/04/18 03/04/18 18:59 06:59 18:59 Intake Total 1750 / 1750 540 / 540 2049 Output Total 3650 / 3650 775 / 775 Balance -1900 / -1900 -235 / -235 2049 Weight 160.6 kg Intake: IV 1500 / 1500 300 / 300 2049 DOPamine 800 MG/500 ML Premix 500 / 500 800 mg In 500 ml @ 3 MCG/KG/MIN 19.391 mls/hr IV.CONT TITRATE PRN Rx#:[id number] Heparin/D5W 25,000 U/250 mL 25, 250 / 250 250 / 250 000 unit In 250 ml @ Per Protocol IV.CONT TITRATE PRN Rx #:[id number] NS Inj 1,000 ML @ 84 mls/hr IV. 1000 / 1000 1000 / 1000 CONT .[id number] ANA Rx#:[id number] Flexbumin 25% Inj 100 ML @ 60 200 / 200 0 / 0 mls/hr IV.SIG WITH DIALYSIS PRN Rx#:[id number] Zosyn 2.25 GM Premix 50 ML @ 50 / 50 50 / 50 50 / 50 100 mls/hr IV.SIG Q8H ANA Rx#: [id number] Vancomycin Inj 1,000 MG In NS 250 / 250 0 / 0 Inj 250 ML @ 250 mls/hr IV.SIG WITH DIALYSIS ANA Rx#:[id number] Oral 250 / 250 240 / 240 Output: Urine 775 / 775 Hemodialysis Amount 3000 / 3000 Urine Amount (Catheter) 650 / 650 Indwelling Urethral Catheter 650 / 650 Gastric Drainage 0 / 0 Oral Orogastric Tube 0 / 0 Other: Date of Last Bowel Movement 03/03/18 03/03/18 03/03/18 # Bowel Movements 1 0 # Incontinent Bowel Movements 0 Narrative: Patient is alert, not in distress. HEENT: [place], Non icteric, conjunctiva pale. Neck: Supple, JVD not elevated. Lungs, Bilateral scattered rales and few rhonchi. Abd. Distended, non tender. Ext; Mild leg edema. - Urinary Catheter Management Indwelling Urethral Catheter Cath placed during this visit: yes, but has since been removed by the nurse Reason for continuing: Chronic Urinary Retention Insertion date: 02/26/18 Insertion time: 16:00 Removal date: 02/26/18 Removal time: 15:30 Results - Labs CBC & Chem 7: 03/04/18 08:33 03/04/18 08:33 Laboratory Results - last 24 hr 03/03/18 03/03/18 03/04/18 17:44 23:06 05:31 WBC RBC Hgb Hct MCV MCH MCHC RDW Plt Count MPV Neut % (Auto) Lymph % (Auto) [place] % (Auto) Eos % (Auto) Baso % (Auto) Neut # (Auto) Lymph # (Auto) [place] # (Auto) Eos # (Auto) Baso # (Auto) WBC Differential Differential Comment APTT Sodium Potassium Chloride Carbon Dioxide Anion Gap BUN Creatinine Estimated GFR POC Glucose 155 H 153 H 121 H Random Glucose Calcium Phosphorus Magnesium Total Bilirubin AST ALT Alkaline Phosphatase Total Protein Albumin 03/04/18 03/04/18 03/04/18 08:33 08:33 08:33 WBC 12.2 H RBC 2.92 L Hgb 8.3 L Hct 25.4 L MCV 86.7 MCH 28.5 MCHC 32.8 RDW 14.6 Plt Count 220 MPV 8.1 Neut % (Auto) 73.4 H Lymph % (Auto) 13.5 [place] % (Auto) 6.8 Eos % (Auto) 5.6 H Baso % (Auto) 0.7 Neut # (Auto) 8.9 H Lymph # (Auto) 1.6 [place] # (Auto) 0.8 Eos # (Auto) 0.7 H Baso # (Auto) 0.1 WBC Differential . Differential Comment Auto diff final APTT 50.8 H Sodium 142 Potassium 3.3 L Chloride 104 Carbon Dioxide 30.2 Anion Gap 8 BUN 18 Creatinine 2.31 H Estimated GFR 28 L POC Glucose Random Glucose 121 H Calcium 8.0 L Phosphorus 2.9 Magnesium 1.9 Total Bilirubin 0.5 AST 26 ALT 48 Alkaline Phosphatase 280 H Total Protein 6.3 L Albumin 2.7 L 03/04/18 14:18 WBC RBC Hgb Hct MCV MCH MCHC RDW Plt Count MPV Neut % (Auto) Lymph % (Auto) [place] % (Auto) Eos % (Auto) Baso % (Auto) Neut # (Auto) Lymph # (Auto) [place] # (Auto) Eos # (Auto) Baso # (Auto) WBC Differential Differential Comment APTT Sodium Potassium Chloride Carbon Dioxide Anion Gap BUN Creatinine Estimated GFR POC Glucose 143 H Random Glucose Calcium Phosphorus Magnesium Total Bilirubin AST ALT Alkaline Phosphatase Total Protein Albumin Microbiology 02/26/18 12:50 Blood - Line Aerobic Blood Culture - Final No growth in 5 days 02/26/18 12:50 Blood - Line Anaerobic Blood Culture - Final No growth in 5 days 02/26/18 12:55 Blood - Line Aerobic Blood Culture - Final No growth in 5 days 02/26/18 12:55 Blood - Line Anaerobic Blood Culture - Final No growth in 5 days - Imaging Impressions Chest X-Ray 03/04/18 06:00 CONCLUSION: Suspected bilateral effusions and consolidation or atelectasis at the bases. Procedures - Arterial Line Size (Gauge): 20
[2018-03-05] MEDS: Artificial Tears Opth Drops 15 ML Bottle EACH EYE SCH ×4 (00:15→22:28)
[2018-03-05] MEDS: Oral Hygiene Kit OROPHARYNG SCH ×4 (00:15→15:13)
[2018-03-05] MEDS: Nystatin 100,000 UNITS/GM Powder 15 GM Bottle TOPICAL SCH ×3 (01:38→20:18)
--- NOTE | 2018-03-05 03:36 | XR ---
EXAM DATE: 03/05/2018 3:26 AM EST AGE/SEX: 72 years / Male INDICATIONS: Shortness of breath, possible pulmonary disease. CLINICAL DATA: This is the patient's subsequent encounter. Patient reports that signs and symptoms h ave been present for 1 week and indicates a pain score of 0/10. MEDICAL/SURGICAL HISTORY: Cardiovascular disease. Diabetes. Hypertension. Tonsillectomy. COMPARISON: [facility] – [place], CHEST 1V SINGLE AP, 03/04/2018. . FINDINGS: The right internal jugular central line is in good position. A pneumothorax is not seen. The heart si ze is within normal limits. There is hazy density seen throughout the lungs bilaterally. There is farhad houetting the hemidiaphragms. CONCLUSION: Diffuse consolidations likely related to diffuse processes such as edema. Hazy density seen throughout the lungs may which may also be secondary to bilateral effusions. Electronically signed by: Andrea Cerrato MD Board Certified Radiologist 03/05/2018 3:34 AM EST
[2018-03-05] MEDS: Piperacil/Tazo 2.25 GM Premix 50 ML IV.SIG SCH ×3 (05:07→22:28)
[2018-03-05] MEDS: Levothyroxine 50 MCG Tablet PO SCH (05:07)
[2018-03-05 08:51] LABS: Baso # (Auto) 0.1 th/mm3 (0.0-0.2); Baso % (Auto) 0.5 % (0.0-2.0); Eos # (Auto) 0.5 th/mm3 (0.0-0.4); Eos % (Auto) 3.5 % (0.0-4.0); Hemoglobin 8.4 gm/dL (13.0-17.0); Lymph # (Auto) 1.3 th/mm3 (1.0-4.8); Lymph % (Auto) 9.9 % (9.0-44.0); Mean Corpuscular HGB Conc 33.5 % (32.0-36.0); Mean Corpuscular Volume 86.7 fL (80.0-100.0); Mono # (Auto) 1.1 th/mm3 (0.0-0.9); Mono % (Auto) 8.3 % (0.0-8.0); Neut # (Auto) 10.2 th/mm3 (1.8-7.7); Neut % (Auto) 77.8 % (16.0-70.0); Platelet Count 214 th/mm3 (150-450); Red Blood Count 2.88 mil/mm3 (4.50-5.90); Red Cell Distribution Width 14.5 % (11.6-17.2); White Blood Count 13.1 th/mm3 (4.0-11.0)
[2018-03-05 09:02] LABS: Albumin 2.6 g/dL (3.4-5.0); Anion Gap 8 meq/L (5-15); Aspartate Aminotransferase 23 U/L (15-37); Blood Urea Nitrogen 17 mg/dL (7-18); Carbon Dioxide 28.5 meq/L (21.0-32.0); Chloride 104 meq/L (98-107); Glomerular Filtration Rate 26 mL/min (>89); Glucose,Random 145 mg/dL (74-106); Magnesium 1.7 mg/dL (1.5-2.5); Sodium 140 meq/L (136-145)
[2018-03-05 09:03] LABS: Alanine Aminotransferase 42 U/L (12-78); Phosphorus 3.1 mg/dL (2.5-4.9)
[2018-03-05 09:06] LABS: Alkaline Phosphatase 254 U/L (45-117); Total Protein 6.3 g/dL (6.4-8.2)
--- NOTE | 2018-03-05 09:15 | P.PNNEU ---
Subjective Active Medications: Active Medications Acetaminophen (Tylenol) 650 mg PO Q6H PRN PRN Reason: FEVER Last Admin: 03/04/18 17:51 Dose: 650 mg Acetaminophen (Tylenol) 650 mg PO UNSCH PRN PRN Reason: SEE LABEL COMMENTS Hydrocodone Bitart/Acetaminophen ([place] 5/325) 1 tab PO Q4H PRN PRN Reason: Pain 1 through 5 Last Admin: 03/05/18 05:07 Dose: 1 tab Al Hydroxide/Mg Hydroxide (Milk Of Freda Arriaga) 30 ml PO Q12H PRN PRN Reason: Mild Constipation Albuterol (Albuterol Neb (Prn)) 2.5 mg NEB Q2HR NEB PRN PRN Reason: SHORTNESS OF BREATH/WHEEZING Albuterol (Duoneb Neb (Zak)) 1 ampul NEB Q4HR NEB [facility] Last Admin: 03/05/18 07:58 Dose: 1 ampul Amiodarone HCl (Cordarone) 200 mg PO DAILY [facility] Last Admin: 03/04/18 09:16 Dose: 200 mg Artificial Tears (Tears Naturale Opth Drops) 1 drop EACH EYE Q8H [facility] Last Admin: 03/05/18 06:29 Dose: Not Given Ascorbic Acid (Vitamin C) 500 mg PO BID [facility] Last Admin: 03/04/18 21:52 Dose: 500 mg Atorvastatin Calcium (Lipitor) 20 mg PO HS [facility] Last Admin: 03/04/18 21:51 Dose: 20 mg Bisacodyl (Dulcolax Supp) 10 mg RECTAL DAILY PRN PRN Reason: SEVERE CONSITIPATION Chlorhexidine Gluconate (Peridex 0.12% Oral Kit) 15 ml OROPHARYNG BID@0800, 2000 [facility] Last Admin: 03/04/18 21:51 Dose: Not Given Clonidine HCl (Catapres) 0.1 mg PO UNSCH PRN PRN Reason: SEE LABEL COMMENTS Diphenhydramine HCl (Benadryl) 25 mg PO UNSCH PRN PRN Reason: SEE LABEL COMMENTS Last Admin: 03/04/18 21:52 Dose: 25 mg Gabapentin (Neurontin) 200 mg PO BID [facility] Last Admin: 03/04/18 21:51 Dose: 200 mg Gelatin (Gelfoam 12 Mm/7 Mm Topical) 1 foam TOPICAL PRN PRN PRN Reason: help stop bleeding from site Last Admin: 03/05/18 05:08 Dose: 1 foam Gentamicin Sulfate (Gentamicin Inj) 20 mg OTHER WITH DIALYSIS PRN PRN Reason: Dwell Gentamycin Lock Last Admin: 03/03/18 09:16 Dose: 20 mg Heparin Sodium (Porcine) (Heparin Inj) 1,000 units OTHER WITH DIALYSIS PRN PRN Reason: Dwell Heparin to Fill Catheter Last Admin: 03/03/18 09:15 Dose: 1,000 units Heparin Sodium (Porcine) (Heparin Inj) 8,000 units OTHER WITH DIALYSIS PRN PRN Reason: for machine prime Hydralazine HCl (Apresoline Inj) 10 mg IV.PUSH Q1H PRN PRN Reason: SYS BP GREATER THAN 170 MMHG Piperacillin/Tazobactam/Dextrose (Zosyn 2.25 Gm Premix) 50 mls @ 100 mls/hr IV.SIG Q8H [facility] Last Infusion: 03/05/18 07:21 Dose: Infused Propofol (Diprivan 1000 Mg/100 Ml Inj) 1,000 mg in 100 mls @ 5.171 mls/hr IV.CONT TITRATE PRN; Protocol PRN Reason: Per Protocol Albumin Human (Flexbumin 25% Inj) 100 mls @ 60 mls/hr IV.SIG WITH DIALYSIS PRN PRN Reason: hypotension / volume replace Last Infusion: 03/04/18 07:00 Dose: Infused Sodium Chloride (Ns Inj) 1,000 mls @ 0 mls/hr OTHER .Q0M PRN PRN Reason: for prime and rinse back Sodium Chloride (Ns Inj) 1,000 mls @ 200 mls/hr OTHER .Q5H PRN PRN Reason: for dialyzer flush PRN Sodium Chloride (Ns Inj) 1,000 mls @ 0 mls/hr IV.CONT .Q0M PRN PRN Reason: hypotension / volume replace Heparin Sodium/Dextrose (Heparin/D5w 25,000 U/250 Ml) 25,000 unit in 250 mls @ 0 mls/hr IV.CONT TITRATE PRN; Protocol PRN Reason: Per Protocol Last Admin: 03/04/18 22:33 Dose: 1,800 units/hr, 18 mls/hr Lactulose (Lactulose Liq) 30 ml PO DAILY PRN PRN Reason: SEVERE CONSITIPATION Levothyroxine Sodium (Synthroid) 50 mcg PO DAILY@0600 [facility] Last Admin: 03/05/18 05:07 Dose: 50 mcg Mannitol (Mannitol Inj) 12.5 gm IV.PUSH UNSCH PRN PRN Reason: hypotension / volume replace Memantine (Namenda) 5 mg PO QPM [facility] Last Admin: 03/04/18 17:51 Dose: 5 mg Miscellaneous Medication () 1 each OROPHARYNG 0000,0400,1200,1600 [facility] Last Admin: 03/05/18 05:07 Dose: Not Given Morphine Sulfate (Morphine Inj) 2 mg IV.PUSH Q3H PRN PRN Reason: Pain 6 through 10 Multivitamins (Theragran) 1 tab PO DAILY [facility] Last Admin: 03/04/18 09:16 Dose: 1 tab Nitroglycerin (Nitro-Bid 2% Oint) 2 inch TOPICAL Q6HR PRN PRN Reason: SYS BP GREATER THAN 170 MMHG Nitroglycerin (Nitrostat Sl) 0.4 mg SL Q5M PRN PRN Reason: CHEST PAIN Nystatin (Mycostatin Powder) 1 applicatio TOPICAL BID [facility] Last Admin: 03/05/18 01:38 Dose: 1 applicatio Ondansetron HCl (Zofran Inj) 4 mg IV.PUSH Q6H PRN PRN Reason: NAUSEA OR VOMITING Ondansetron HCl (Zofran Inj) 4 mg IV.PUSH UNSCH PRN PRN Reason: NAUSEA OR VOMITING Pantoprazole Sodium (Protonix) 40 mg PO DAILY [facility] Senna/Docusate Sodium (Kim-Colace) 1 tab PO BID [facility] Last Admin: 03/04/18 21:51 Dose: 1 tab Sennosides (Senokot) 17.2 mg PO Q12H PRN PRN Reason: Moderate Constipation Sodium Chloride (Ns Flush) 2 ml IV.FLUSH BID [facility] Last Admin: 03/04/18 21:51 Dose: 2 ml Sodium Chloride (Ns Flush) 2 ml IV.FLUSH PRN PRN PRN Reason: FLUSH AFTER USING IV ACCESS Sodium Chloride (Ns Flush) 0 ml IV.FLUSH DAILY [facility] Last Admin: 03/04/18 09:17 Dose: Not Given Sodium Chloride (Ns Flush) 0 ml IV.FLUSH PRN PRN PRN Reason: FLUSH AFTER USING IV ACCESS Sodium Chloride (Ns Flush) 5 ml IV.FLUSH PRN PRN PRN Reason: flush each lumen during HD Tamsulosin HCl (Flomax) 0.4 mg PO DAILY [facility] Last Admin: 03/04/18 09:16 Dose: 0.4 mg Zinc Sulfate (Zinc-220) 220 mg PO DAILY [facility] Last Admin: 03/04/18 09:16 Dose: 220 mg Allergies/Adverse Reactions: Allergies Allergy/AdvReac Type Severity Reaction Status Date / Time daptomycin Allergy Severe Unverified 11/02/16 23:29 Sulfa (Sulfonamide Allergy Mild RASH Unverified 11/02/16 23:29 Antibiotics) Physical Exam Vital signs: Vital Signs 03/04/18 10:00 03/04/18 11:22 03/04/18 12:00 Temperature 99.5 F Pulse Rate 79 77 83 Respiratory Rate 20 26 H Blood Pressure 113/53 L Pulse Oximetry 96 03/04/18 14:00 03/04/18 15:59 03/04/18 16:00 Temperature 98.9 F Pulse Rate 82 90 78 Respiratory Rate 20 16 Blood Pressure 115/55 L Pulse Oximetry 97 03/04/18 17:00 03/04/18 18:00 03/04/18 19:00 Temperature Pulse Rate 83 81 82 Respiratory Rate 22 19 22 Blood Pressure 110/63 105/58 L Pulse Oximetry 96 97 96 03/04/18 19:03 03/04/18 20:00 03/04/18 20:01 Temperature 98.2 F Pulse Rate 81 83 84 Respiratory Rate 20 25 H 23 Blood Pressure 116/58 L 110/53 L Pulse Oximetry 96 95 96 03/04/18 20:07 03/04/18 21:00 03/04/18 22:00 Temperature Pulse Rate 81 81 82 Respiratory Rate 16 19 11 L Blood Pressure 113/57 L 116/56 L Pulse Oximetry 96 97 96 03/04/18 23:00 03/04/18 23:34 03/05/18 00:00 Temperature 98.2 F Pulse Rate 79 80 84 Respiratory Rate 20 20 21 Blood Pressure 112/60 110/57 L Pulse Oximetry 94 L 97 03/05/18 01:00 03/05/18 01:06 03/05/18 02:00 Temperature Pulse Rate 83 81 80 Respiratory Rate 18 19 21 Blood Pressure 123/56 L 122/58 L Pulse Oximetry 97 97 96 03/05/18 03:00 03/05/18 03:47 03/05/18 04:00 Temperature 98.4 F Pulse Rate 80 82 82 Respiratory Rate 22 20 22 Blood Pressure 124/58 L 123/60 Pulse Oximetry 97 100 03/05/18 05:00 03/05/18 06:00 03/05/18 06:09 Temperature Pulse Rate 86 83 83 Respiratory Rate 23 21 31 H Blood Pressure 118/59 L Pulse Oximetry 96 96 97 03/05/18 07:59 Temperature Pulse Rate 79 Respiratory Rate 19 Blood Pressure Pulse Oximetry 96 Intake & Output 03/04/18 03/05/18 03/05/18 18:59 06:59 18:59 Intake Total 2450 / 2450 540 / 540 50 / 50 Output Total 750 / 750 650 / 650 Balance 1700 / 1700 -110 / -110 50 / 50 Weight 161.6 kg Intake: IV 2100 / 2100 300 / 300 50 / 50 DOPamine 800 MG/500 ML Premix 500 / 500 800 mg In 500 ml @ 3 MCG/KG/MIN 19.391 mls/hr IV.CONT TITRATE PRN Rx#:[id number] Heparin/D5W 25,000 U/250 mL 25, 250 / 250 250 / 250 000 unit In 250 ml @ Per Protocol IV.CONT TITRATE PRN Rx #:[id number] NS Inj 1,000 ML @ 84 mls/hr IV. 1000 / 1000 CONT .[id number] [facility] Rx#:[id number] Flexbumin 25% Inj 100 ML @ 60 0 / 0 mls/hr IV.SIG WITH DIALYSIS PRN Rx#:[id number] Zosyn 2.25 GM Premix 50 ML @ 100 / 100 50 / 50 50 / 50 100 mls/hr IV.SIG Q8H ZAK Rx#: [id number] Vancomycin Inj 1,000 MG In NS 0 / 0 Inj 250 ML @ 250 mls/hr IV.SIG WITH DIALYSIS [facility] Rx#:[id number] Oral 350 / 350 240 / 240 Output: Urine 750 / 750 Urine Amount (Catheter) 650 / 650 Indwelling Urethral Catheter 650 / 650 Gastric Drainage 0 / 0 Oral Orogastric Tube 0 / 0 Other: Date of Last Bowel Movement 03/03/18 03/05/18 # Bowel Movements 0 1 # Incontinent Bowel Movements 0 1 Narrative: not month or dec but remembers them at 2 min vff face sym tongue mid 5/5 bue and ble speech nl - Urinary Catheter Management Indwelling Urethral Catheter Cath placed during this visit: yes, but has since been removed by the nurse Reason for continuing: Chronic Urinary Retention Insertion date: 02/26/18 Insertion time: 16:00 Removal date: 02/26/18 Removal time: 15:30 Objective Laboratory Results - last 24 hr 03/04/18 03/04/18 03/04/18 08:33 08:33 08:33 WBC 12.2 H RBC 2.92 L Hgb 8.3 L Hct 25.4 L MCV 86.7 MCH 28.5 MCHC 32.8 RDW 14.6 Plt Count 220 MPV 8.1 Neut % (Auto) 73.4 H Lymph % (Auto) 13.5 [place] % (Auto) 6.8 Eos % (Auto) 5.6 H Baso % (Auto) 0.7 Neut # (Auto) 8.9 H Lymph # (Auto) 1.6 [place] # (Auto) 0.8 Eos # (Auto) 0.7 H Baso # (Auto) 0.1 WBC Differential . Differential Comment Auto diff final APTT 50.8 H Sodium 142 Potassium 3.3 L Chloride 104 Carbon Dioxide 30.2 Anion Gap 8 BUN 18 Creatinine 2.31 H Estimated GFR 28 L POC Glucose Random Glucose 121 H Calcium 8.0 L Phosphorus 2.9 Magnesium 1.9 Total Bilirubin 0.5 AST 26 ALT 48 Alkaline Phosphatase 280 H Total Protein 6.3 L Albumin 2.7 L 03/04/18 03/04/18 03/05/18 14:18 17:40 00:03 WBC RBC Hgb Hct MCV MCH MCHC RDW Plt Count MPV Neut % (Auto) Lymph % (Auto) [place] % (Auto) Eos % (Auto) Baso % (Auto) Neut # (Auto) Lymph # (Auto) [place] # (Auto) Eos # (Auto) Baso # (Auto) WBC Differential Differential Comment APTT Sodium Potassium Chloride Carbon Dioxide Anion Gap BUN Creatinine Estimated GFR POC Glucose 143 H 137 H 146 H Random Glucose Calcium Phosphorus Magnesium Total Bilirubin AST ALT Alkaline Phosphatase Total Protein Albumin 03/05/18 03/05/18 03/05/18 06:01 08:10 08:10 WBC 13.1 H RBC 2.88 L Hgb 8.4 L Hct 25.0 L MCV 86.7 MCH 29.0 MCHC 33.5 RDW 14.5 Plt Count 214 MPV 8.0 Neut % (Auto) 77.8 H Lymph % (Auto) 9.9 [place] % (Auto) 8.3 H Eos % (Auto) 3.5 Baso % (Auto) 0.5 Neut # (Auto) 10.2 H Lymph # (Auto) 1.3 [place] # (Auto) 1.1 H Eos # (Auto) 0.5 H Baso # (Auto) 0.1 WBC Differential . Differential Comment Auto diff final APTT Sodium 140 Potassium 3.0 L Chloride 104 Carbon Dioxide 28.5 Anion Gap 8 BUN 17 Creatinine 2.51 H Estimated GFR 26 L POC Glucose 155 H Random Glucose 145 H Calcium 8.0 L Phosphorus 3.1 Magnesium 1.7 Total Bilirubin 0.5 AST 23 ALT 42 Alkaline Phosphatase 254 H Total Protein 6.3 L Albumin 2.6 L 03/05/18 08:10 WBC RBC Hgb Hct MCV MCH MCHC RDW Plt Count MPV Neut % (Auto) Lymph % (Auto) [place] % (Auto) Eos % (Auto) Baso % (Auto) Neut # (Auto) Lymph # (Auto) [place] # (Auto) Eos # (Auto) Baso # (Auto) WBC Differential Differential Comment APTT 59.3 H Sodium Potassium Chloride Carbon Dioxide Anion Gap BUN Creatinine Estimated GFR POC Glucose Random Glucose Calcium Phosphorus Magnesium Total Bilirubin AST ALT Alkaline Phosphatase Total Protein Albumin Review/Management - Review/Management Plan: imp improved neuro will follow i suspect will do ok neurowise b12 nl -- 03/03/18 better every day will just make sure mm strength improves ----- 03/05/18 looks great neurowise will signoff Procedures - Arterial Line Size (Gauge): 20
[2018-03-05] MEDS: Amiodarone 200 MG Tablet PO SCH (09:31)
[2018-03-05] MEDS: Chlorhexidine 0.12% Oral Kit 15 ML UDC OROPHARYNG SCH ×2 (09:31→20:17)
[2018-03-05] MEDS: Gabapentin 100 MG Capsule PO SCH ×2 (09:35→20:19)
[2018-03-05] MEDS: Ascorbic Acid 500 MG Tablet PO SCH ×2 (09:36→20:19)
[2018-03-05] MEDS: Senna/Docusate Sodium 8.6/50 MG Tablet PO SCH ×2 (09:36→20:43)
--- NOTE | 2018-03-05 12:41 | P.PNNP ---
Subjective Interval history: Patient is alert, mild SOB, with nasal cannula, not in distress. Physical Exam Vital signs: Vital Signs 03/04/18 14:00 03/04/18 15:59 03/04/18 16:00 Temperature 98.9 F Pulse Rate 82 90 78 Respiratory Rate 20 16 Blood Pressure 115/55 L Pulse Oximetry 97 03/04/18 17:00 03/04/18 18:00 03/04/18 19:00 Temperature Pulse Rate 83 81 82 Respiratory Rate 22 19 22 Blood Pressure 110/63 105/58 L Pulse Oximetry 96 97 96 03/04/18 19:03 03/04/18 20:00 03/04/18 20:01 Temperature 98.2 F Pulse Rate 81 83 84 Respiratory Rate 20 25 H 23 Blood Pressure 116/58 L 110/53 L Pulse Oximetry 96 95 96 03/04/18 20:07 03/04/18 21:00 03/04/18 22:00 Temperature Pulse Rate 81 81 82 Respiratory Rate 16 19 11 L Blood Pressure 113/57 L 116/56 L Pulse Oximetry 96 97 96 03/04/18 23:00 03/04/18 23:34 03/05/18 00:00 Temperature 98.2 F Pulse Rate 79 80 84 Respiratory Rate 20 20 21 Blood Pressure 112/60 110/57 L Pulse Oximetry 94 L 97 03/05/18 01:00 03/05/18 01:06 03/05/18 02:00 Temperature Pulse Rate 83 81 80 Respiratory Rate 18 19 21 Blood Pressure 123/56 L 122/58 L Pulse Oximetry 97 97 96 03/05/18 03:00 03/05/18 03:47 03/05/18 04:00 Temperature 98.4 F Pulse Rate 80 82 82 Respiratory Rate 22 20 22 Blood Pressure 124/58 L 123/60 Pulse Oximetry 97 100 03/05/18 05:00 03/05/18 06:00 03/05/18 06:09 Temperature Pulse Rate 86 83 83 Respiratory Rate 23 21 31 H Blood Pressure 118/59 L Pulse Oximetry 96 96 97 03/05/18 07:59 03/05/18 08:00 03/05/18 10:00 Temperature 98.3 F Pulse Rate 79 78 84 Respiratory Rate 19 21 Blood Pressure 133/56 L Pulse Oximetry 96 93 L 03/05/18 11:31 12/16/18 12:00 Temperature 98.5 F Pulse Rate 82 83 Respiratory Rate 20 24 Blood Pressure 135/60 Pulse Oximetry 96 Intake & Output 03/04/18 03/05/18 03/05/18 18:59 06:59 18:59 Intake Total 2450 / 2450 540 / 540 50 / 50 Output Total 750 / 750 650 / 650 Balance 1700 / 1700 -110 / -110 50 / 50 Weight 161.6 kg Intake: IV 2100 / 2100 300 / 300 50 / 50 DOPamine 800 MG/500 ML Premix 500 / 500 800 mg In 500 ml @ 3 MCG/KG/MIN 19.391 mls/hr IV.CONT TITRATE PRN Rx#:[id number] Heparin/D5W 25,000 U/250 mL 25, 250 / 250 250 / 250 000 unit In 250 ml @ Per Protocol IV.CONT TITRATE PRN Rx #:[id number] NS Inj 1,000 ML @ 84 mls/hr IV. 1000 / 1000 CONT .[id number] ANA Rx#:[id number] Flexbumin 25% Inj 100 ML @ 60 0 / 0 mls/hr IV.SIG WITH DIALYSIS PRN Rx#:[id number] Zosyn 2.25 GM Premix 50 ML @ 100 / 100 50 / 50 50 / 50 100 mls/hr IV.SIG Q8H ANA Rx#: [id number] Vancomycin Inj 1,000 MG In NS 0 / 0 Inj 250 ML @ 250 mls/hr IV.SIG WITH DIALYSIS ANA Rx#:[id number] Oral 350 / 350 240 / 240 Output: Urine 750 / 750 Urine Amount (Catheter) 650 / 650 Indwelling Urethral Catheter 650 / 650 Gastric Drainage 0 / 0 Oral Orogastric Tube 0 / 0 Other: Date of Last Bowel Movement 03/03/18 03/05/18 03/03/18 # Bowel Movements 0 1 # Incontinent Bowel Movements 0 1 - Constitutional no acute distress - Routine HEENT Exam Head: Present: normocephalic - Routine Neck Exam Present: supple, JVD - Routine Respiratory Exam Present: accessory muscle use, decreased breath sounds, wheezes, crackles - Routine Cardiovascular Exam Present: RRR, S1, S2 - Routine Abdominal Exam Present: soft, normoactive bowel sounds, distended - Routine Neurological Exam Present: alert - Urinary Catheter Management Indwelling Urethral Catheter Cath placed during this visit: yes, but has since been removed by the nurse Reason for continuing: Chronic Urinary Retention Insertion date: 02/26/18 Insertion time: 16:00 Removal date: 02/26/18 Removal time: 15:30 Assessment and Plan - Assessment (1) Acute renal failure Code(s): N17.9 - Acute kidney failure, unspecified Status: Acute (2) Chronic kidney disease Code(s): N18.9 - Chronic kidney disease, unspecified Status: Acute (3) Shock Code(s): R57.9 - Shock, unspecified Status: Acute (4) BMI 50.0-59.9, adult Code(s): Z68.43 - Body mass index (BMI) 50-59.9, adult Status: Chronic (5) 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 Code(s): E11.9 - Type 2 diabetes mellitus without complications Status: Chronic Qualifiers: 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 type: type 2 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 mcc insulin use: with remote 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 Dialysis done on Tuesday, Has been non oliguric. Continue supportive care Continue to monitor his progress. Creatinine is 2.5, K was low and replaced. Avoid Nephrotoxins and watch for renal recovery. HD as needed, possibly in AM. Procedures - Arterial Line Size (Gauge): 20
--- NOTE | 2018-03-05 13:42 | P.PN ---
Subjective Interval history: Is in bed he is more awake and alert today. He knows his name only. Follows some commands. Able to eat. No nausea or vomiting. Heart rate is better controlled. Denies chest pain or shortness of breath. No diaphoresis. No new motor deficit. Physical Exam Vital signs: Vital Signs 03/04/18 14:00 03/04/18 15:59 03/04/18 16:00 Temperature 98.9 F Pulse Rate 82 90 78 Respiratory Rate 20 16 Blood Pressure 115/55 L Pulse Oximetry 97 03/04/18 17:00 03/04/18 18:00 03/04/18 19:00 Temperature Pulse Rate 83 81 82 Respiratory Rate 22 19 22 Blood Pressure 110/63 105/58 L Pulse Oximetry 96 97 96 03/04/18 19:03 03/04/18 20:00 03/04/18 20:01 Temperature 98.2 F Pulse Rate 81 83 84 Respiratory Rate 20 25 H 23 Blood Pressure 116/58 L 110/53 L Pulse Oximetry 96 95 96 03/04/18 20:07 03/04/18 21:00 03/04/18 22:00 Temperature Pulse Rate 81 81 82 Respiratory Rate 16 19 11 L Blood Pressure 113/57 L 116/56 L Pulse Oximetry 96 97 96 03/04/18 23:00 03/04/18 23:34 03/05/18 00:00 Temperature 98.2 F Pulse Rate 79 80 84 Respiratory Rate 20 20 21 Blood Pressure 112/60 110/57 L Pulse Oximetry 94 L 97 03/05/18 01:00 03/05/18 01:06 03/05/18 02:00 Temperature Pulse Rate 83 81 80 Respiratory Rate 18 19 21 Blood Pressure 123/56 L 122/58 L Pulse Oximetry 97 97 96 03/05/18 03:00 03/05/18 03:47 03/05/18 04:00 Temperature 98.4 F Pulse Rate 80 82 82 Respiratory Rate 22 20 22 Blood Pressure 124/58 L 123/60 Pulse Oximetry 97 100 03/05/18 05:00 03/05/18 06:00 03/05/18 06:09 Temperature Pulse Rate 86 83 83 Respiratory Rate 23 21 31 H Blood Pressure 118/59 L Pulse Oximetry 96 96 97 03/05/18 07:59 03/05/18 08:00 03/05/18 10:00 Temperature 98.3 F Pulse Rate 79 78 84 Respiratory Rate 19 21 Blood Pressure 133/56 L Pulse Oximetry 96 93 L 03/05/18 11:31 03/05/18 12:00 Temperature 98.5 F Pulse Rate 82 83 Respiratory Rate 20 24 Blood Pressure 135/60 Pulse Oximetry 96 Intake & Output 03/04/18 03/05/18 03/05/18 18:59 06:59 18:59 Intake Total 2450 / 2450 540 / 540 50 / 50 Output Total 750 / 750 650 / 650 Balance 1700 / 1700 -110 / -110 50 / 50 Weight 161.6 kg Intake: IV 2100 / 2100 300 / 300 50 / 50 DOPamine 800 MG/500 ML Premix 500 / 500 800 mg In 500 ml @ 3 MCG/KG/MIN 19.391 mls/hr IV.CONT TITRATE PRN Rx#:[id number] Heparin/D5W 25,000 U/250 mL 25, 250 / 250 250 / 250 000 unit In 250 ml @ Per Protocol IV.CONT TITRATE PRN Rx #:[id number] NS Inj 1,000 ML @ 84 mls/hr IV. 1000 / 1000 CONT .[id number] ANA Rx#:[id number] Flexbumin 25% Inj 100 ML @ 60 0 / 0 mls/hr IV.SIG WITH DIALYSIS PRN Rx#:[id number] Zosyn 2.25 GM Premix 50 ML @ 100 / 100 50 / 50 50 / 50 100 mls/hr IV.SIG Q8H ANA Rx#: [id number] Vancomycin Inj 1,000 MG In NS 0 / 0 Inj 250 ML @ 250 mls/hr IV.SIG WITH DIALYSIS ANA Rx#:[id number] Oral 350 / 350 240 / 240 Output: Urine 750 / 750 Urine Amount (Catheter) 650 / 650 Indwelling Urethral Catheter 650 / 650 Gastric Drainage 0 / 0 Oral Orogastric Tube 0 / 0 Other: Date of Last Bowel Movement 03/03/18 03/05/18 03/03/18 # Bowel Movements 0 1 # Incontinent Bowel Movements 0 1 Narrative: GENERAL: 72-year-old obese male currently cannula, in no acute distress SKIN: Warm and dry. Chronic venous stasis bilateral lower extremities CARDIOVASCULAR: Regular rate and rhythm. S1, S2 no S4. RESPIRATORY: Minutes breath sounds due to body habitus. No wheezing appreciated.. GASTROINTESTINAL: Abdomen soft, non-tender, obese with large pannus. MUSCULOSKELETAL: Extremities with trace to 1+ bilateral lower extremity edema. NEUROLOGICAL: Moves all 4 extremity spontaneously. Strength slightly weaker in the lower extremities. - Urinary Catheter Management Indwelling Urethral Catheter Cath placed during this visit: yes, but has since been removed by the nurse Reason for continuing: Chronic Urinary Retention Insertion date: 02/26/18 Insertion time: 16:00 Removal date: 02/26/18 Removal time: 15:30 Results - Labs CBC & Chem 7: 03/05/18 08:10 03/05/18 08:10 Laboratory Results - last 24 hr 03/04/18 03/04/18 03/05/18 14:18 17:40 00:03 WBC RBC Hgb Hct MCV MCH MCHC RDW Plt Count MPV Neut % (Auto) Lymph % (Auto) [place] % (Auto) Eos % (Auto) Baso % (Auto) Neut # (Auto) Lymph # (Auto) [place] # (Auto) Eos # (Auto) Baso # (Auto) WBC Differential Differential Comment APTT Sodium Potassium Chloride Carbon Dioxide Anion Gap BUN Creatinine Estimated GFR POC Glucose 143 H 137 H 146 H Random Glucose Calcium Phosphorus Magnesium Total Bilirubin AST ALT Alkaline Phosphatase Total Protein Albumin 03/05/18 03/05/18 03/05/18 06:01 08:10 08:10 WBC 13.1 H RBC 2.88 L Hgb 8.4 L Hct 25.0 L MCV 86.7 MCH 29.0 MCHC 33.5 RDW 14.5 Plt Count 214 MPV 8.0 Neut % (Auto) 77.8 H Lymph % (Auto) 9.9 [place] % (Auto) 8.3 H Eos % (Auto) 3.5 Baso % (Auto) 0.5 Neut # (Auto) 10.2 H Lymph # (Auto) 1.3 [place] # (Auto) 1.1 H Eos # (Auto) 0.5 H Baso # (Auto) 0.1 WBC Differential . Differential Comment Auto diff final APTT Sodium 140 Potassium 3.0 L Chloride 104 Carbon Dioxide 28.5 Anion Gap 8 BUN 17 Creatinine 2.51 H Estimated GFR 26 L POC Glucose 155 H Random Glucose 145 H Calcium 8.0 L Phosphorus 3.1 Magnesium 1.7 Total Bilirubin 0.5 AST 23 ALT 42 Alkaline Phosphatase 254 H Total Protein 6.3 L Albumin 2.6 L 03/05/18 08:10 WBC RBC Hgb Hct MCV MCH MCHC RDW Plt Count MPV Neut % (Auto) Lymph % (Auto) [place] % (Auto) Eos % (Auto) Baso % (Auto) Neut # (Auto) Lymph # (Auto) [place] # (Auto) Eos # (Auto) Baso # (Auto) WBC Differential Differential Comment APTT 59.3 H Sodium Potassium Chloride Carbon Dioxide Anion Gap BUN Creatinine Estimated GFR POC Glucose Random Glucose Calcium Phosphorus Magnesium Total Bilirubin AST ALT Alkaline Phosphatase Total Protein Albumin - Imaging Impressions Chest X-Ray 03/05/18 06:00 CONCLUSION: Diffuse consolidations likely related to diffuse processes such as edema. Hazy density seen throughout the lungs may which may also be secondary to bilateral effusions. Assessment and Plan - Plan Neuro/Psych: Acute toxic metabolic encephalopathy History of TIA Depression/anxiety Chronic peripheral neuropathy secondary to diabetes mellitus Dementia disorder NOS Holding gabapentin 600 mg 3 times daily for peripheral neuropathy. Resume at 200 mg 3 times daily 03/04 Holding scheduled morphine 15 mg every 12 hours for chronic pain Holding duloxetine 20 mg daily for depression. Resume clinically indicated Resume memantine 5 mg at night for dementia Acetaminophen 650 mg every 6 hours as needed fever Hydrocodone/acetaminophen 5/325 1 tablet every 4 hours as needed pain 1 through 5 Morphine sulfate 2 mg IV every 2 hours as needed pain [address] brain revealed no acute intracranial findings 02/26. Ammonia level 20 EEG 02/28 revealed mild slowing. No epileptic activity. MR brain 1211 revealed no acute intracranial findings See musculoskeletal MR C-spine She neurology consult. Thiamine, B12 and MMA pending. CV: Sinus bradycardia -resolved Paroxysmal atrial fibrillation currently normal sinus rhythm History of essential hypertension HyperLipidemia coronary artery disease Congestive heart failure unknown etiology Receive 0.5 mg atropine in route. Received 1 L normal saline crystalloid bolus. Dopamine drip is off Holding atorvastatin 20 mg a day for dyslipidemia. Resume clinically indicated Holding amiodarone 200 mg daily for atrial fibrillation with hyperkalemia. Resume clinically indicated. Holding amlodipine 5 mg daily metoprolol tartrate 205mg twice daily for hypertension resume clinically indicated Holding olmesartan 20 mg daily with hyper kalemia and acute kidney injury. Initial troponin 0 0.02. Trend was negative. 02/28 2D echocardiogram -EF 55-60%. LVH. Moderate MR. PA P 58 mmHg Resp: History of obstructive sleep apnea Right greater than left pleural effusion/exudative by light's criteria Acute respiratory failure Currently on PRVC ventilation Head of bed at 30 degrees Ventilator bundle Albuterol/ipratropium aerosols every 4 hours with albuterol aerosols every 2 as needed dyspnea Will likely need CPAP once extubated Spontaneous breathing trials and clinically indicated CT thoracentesis ordered right pleural effusion. -[address] chest revealed right greater than left pleural effusion. Anasarca.. Atelectasis right lower lobe Will attempt CPAP trial today to extubate. Today 03/03 GI: Elevated transaminases Elevated alkaline phosphatase Hospital left liver mass 5 cm Hypoalbuminemia Monitor transaminases. Check hepatitis panel was negative Tube feeds on hold for possible extubation pantoprazole for GI prophylaxis DC sodium/senna 1 tablet twice daily for bowel regimen. Avoid hepatotoxic medications Follow-up on CT abdomen/pelvis revealed small left liver mass. Follow-up MRI of liver in future : BPH Holding alfazosin 10 mg daily for BPH while hypotensive on vasopressors Maintain Orozco catheter Endo: 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 Hypothyroidism with elevated TSH On levothyroxine 50 mcg daily. Continue TSH was 5.02 Sliding scale insulin with Accu-Cheks to maintain euglycemia every 6 hours/ aspart insulin low regimen On sliding scale lispro insulin at home Renal: Acute kidney injury in the setting of chronic kidney disease stage IIIb Maintain Orozco catheter Monitor urine output Accurate I's and O's Check urine eosinophils, sodium and creatinine Will receive hemodialysis 12/27. Also received 02/27. Per nephrology's request. Dr. Leal has been consulted. Defer dialysis to him in future -2500 cc 02/27 950 cc urine output past 24 hours Heme: Leukocytosis Normocytic anemia Chronic rivaroxaban use -holding 48 hours pending thoracentesis Elevated INR/PTT Monitor CBC daily. Follow trends. No indication for transfusion of blood products at this time. Resume baseline anticoagulant after CT head ID: Capnocytophaga sputum positive Blood cultures x2, and UA 02/26 no growth Sputum revealed gram-positive cocci in pairs and clusters 02/27. 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 Received acute hemodialysis today which will correct the underlying electrolyte derangement Potassium currently within normal limits. Recheck in a.m. Hypokalemia. Monitor and replace. MSK: Elevated BMI greater than 50 Bilateral lower extremity heel ulcers Cervical canal stenosis Weight loss encouraged PT evaluate and Wound care evaluate and treat MR C-spine revealed C2/3 ventral cord with LF thickening. Thecal sac 4 mm. Moderate C4/5 C5/6 and C6-7 stenosis. Mild C3/4 and C7/T1 stenosis Access -Right femoral CVL and right femoral arterial CVL day 3 placed the ED by . Discontinued 12/12 r -ight IJ dialysis catheter day #5 Prophylaxis -GI -pantoprazole -DVT -SCD heparin gtt Discussed with the patient, nurse. Procedures - Arterial Line Size (Gauge): 20
[2018-03-05] MEDS: Heparin Drip 25,000 UNIT/250 ML BAG IV.CONT PRN (13:54)
[2018-03-05] MEDS ORDERED: Potassium Bicarbonate 25 MEQ Effervescent Tablet PO ONE (15:30)
--- NOTE | 2018-03-05 15:32 | P.PN ---
Subjective Interval history: ALERT WATCHING TV NO SOB Physical Exam Vital signs: Vital Signs 03/04/18 15:59 03/04/18 16:00 03/04/18 17:00 Temperature 98.9 F Pulse Rate 90 78 83 Respiratory Rate 20 16 22 Blood Pressure 115/55 L 110/63 Pulse Oximetry 97 96 03/04/18 18:00 03/04/18 19:00 03/04/18 19:03 Temperature Pulse Rate 81 82 81 Respiratory Rate 19 22 20 Blood Pressure 105/58 L 116/58 L Pulse Oximetry 97 96 96 03/04/18 20:00 03/04/18 20:01 03/04/18 20:07 Temperature 98.2 F Pulse Rate 83 84 81 Respiratory Rate 25 H 23 16 Blood Pressure 110/53 L Pulse Oximetry 95 96 96 03/04/18 21:00 03/04/18 22:00 03/04/18 23:00 Temperature Pulse Rate 81 82 79 Respiratory Rate 19 11 L 20 Blood Pressure 113/57 L 116/56 L 112/60 Pulse Oximetry 97 96 94 L 03/04/18 23:34 03/05/18 00:00 03/05/18 01:00 Temperature 98.2 F Pulse Rate 80 84 83 Respiratory Rate 20 21 18 Blood Pressure 110/57 L Pulse Oximetry 97 97 03/05/18 01:06 03/05/18 02:00 03/05/18 03:00 Temperature Pulse Rate 81 80 80 Respiratory Rate 19 21 22 Blood Pressure 123/56 L 122/58 L 124/58 L Pulse Oximetry 97 96 97 03/05/18 03:47 03/05/18 04:00 03/05/18 05:00 Temperature 98.4 F Pulse Rate 82 82 86 Respiratory Rate 20 22 23 Blood Pressure 123/60 Pulse Oximetry 100 96 03/05/18 06:00 03/05/18 06:09 03/05/18 07:59 Temperature Pulse Rate 83 83 79 Respiratory Rate 21 31 H 19 Blood Pressure 118/59 L Pulse Oximetry 96 97 96 03/05/18 08:00 03/05/18 10:00 03/05/18 11:31 Temperature 98.3 F Pulse Rate 78 84 82 Respiratory Rate 21 20 Blood Pressure 133/56 L Pulse Oximetry 93 L 03/05/18 12:00 03/05/18 14:00 Temperature 98.5 F Pulse Rate 83 86 Respiratory Rate 24 Blood Pressure 135/60 Pulse Oximetry 96 Intake & Output 03/04/18 03/05/18 03/05/18 18:59 06:59 18:59 Intake Total 2450 / 2450 540 / 540 350 / 350 Output Total 750 / 750 650 / 650 Balance 1700 / 1700 -110 / -110 350 / 350 Weight 161.6 kg Intake: IV 2100 / 2100 300 / 300 350 / 350 DOPamine 800 MG/500 ML Premix 500 / 500 800 mg In 500 ml @ 3 MCG/KG/MIN 19.391 mls/hr IV.CONT TITRATE PRN Rx#:[id number] Heparin/D5W 25,000 U/250 mL 25, 250 / 250 250 / 250 250 / 250 000 unit In 250 ml @ Per Protocol IV.CONT TITRATE PRN Rx #:[id number] NS Inj 1,000 ML @ 84 mls/hr IV. 1000 / 1000 CONT .[id number] ANA Rx#:[id number] Flexbumin 25% Inj 100 ML @ 60 0 / 0 mls/hr IV.SIG WITH DIALYSIS PRN Rx#:[id number] Zosyn 2.25 GM Premix 50 ML @ 100 / 100 50 / 50 100 / 100 100 mls/hr IV.SIG Q8H ANA Rx#: [id number] Vancomycin Inj 1,000 MG In NS 0 / 0 Inj 250 ML @ 250 mls/hr IV.SIG WITH DIALYSIS ANA Rx#:[id number] Oral 350 / 350 240 / 240 Output: Urine 750 / 750 Urine Amount (Catheter) 650 / 650 Indwelling Urethral Catheter 650 / 650 Gastric Drainage 0 / 0 Oral Orogastric Tube 0 / 0 Other: Date of Last Bowel Movement 03/03/18 03/05/18 03/03/18 # Bowel Movements 0 1 # Incontinent Bowel Movements 0 1 Narrative: GENERAL: 72-year-old obese male currently cannula, in no acute distress SKIN: Warm and dry. Chronic venous stasis bilateral lower extremities CARDIOVASCULAR: Regular rate and rhythm. S1, S2 no S4. RESPIRATORY: Minutes breath sounds due to body habitus. No wheezing appreciated.. GASTROINTESTINAL: Abdomen soft, non-tender, obese with large pannus. MUSCULOSKELETAL: Extremities with trace to 1+ bilateral lower extremity edema. NEUROLOGICAL: Moves all 4 extremity spontaneously. Strength slightly weaker in the lower extremities. - Urinary Catheter Management Indwelling Urethral Catheter Cath placed during this visit: yes, but has since been removed by the nurse Reason for continuing: Chronic Urinary Retention Insertion date: 02/26/18 Insertion time: 16:00 Removal date: 02/26/18 Removal time: 15:30 Results - Labs CBC & Chem 7: 03/05/18 08:10 03/05/18 08:10 Laboratory Results - last 24 hr 03/04/18 03/05/18 03/05/18 17:40 00:03 06:01 WBC RBC Hgb Hct MCV MCH MCHC RDW Plt Count MPV Neut % (Auto) Lymph % (Auto) [place] % (Auto) Eos % (Auto) Baso % (Auto) Neut # (Auto) Lymph # (Auto) [place] # (Auto) Eos # (Auto) Baso # (Auto) WBC Differential Differential Comment APTT Sodium Potassium Chloride Carbon Dioxide Anion Gap BUN Creatinine Estimated GFR POC Glucose 137 H 146 H 155 H Random Glucose Calcium Phosphorus Magnesium Total Bilirubin AST ALT Alkaline Phosphatase Total Protein Albumin 03/05/18 03/05/18 03/05/18 08:10 08:10 08:10 WBC 13.1 H RBC 2.88 L Hgb 8.4 L Hct 25.0 L MCV 86.7 MCH 29.0 MCHC 33.5 RDW 14.5 Plt Count 214 MPV 8.0 Neut % (Auto) 77.8 H Lymph % (Auto) 9.9 [place] % (Auto) 8.3 H Eos % (Auto) 3.5 Baso % (Auto) 0.5 Neut # (Auto) 10.2 H Lymph # (Auto) 1.3 [place] # (Auto) 1.1 H Eos # (Auto) 0.5 H Baso # (Auto) 0.1 WBC Differential . Differential Comment Auto diff final APTT 59.3 H Sodium 140 Potassium 3.0 L Chloride 104 Carbon Dioxide 28.5 Anion Gap 8 BUN 17 Creatinine 2.51 H Estimated GFR 26 L POC Glucose Random Glucose 145 H Calcium 8.0 L Phosphorus 3.1 Magnesium 1.7 Total Bilirubin 0.5 AST 23 ALT 42 Alkaline Phosphatase 254 H Total Protein 6.3 L Albumin 2.6 L - Imaging Impressions Chest X-Ray 03/05/18 06:00 CONCLUSION: Diffuse consolidations likely related to diffuse processes such as edema. Hazy density seen throughout the lungs may which may also be secondary to bilateral effusions. Assessment and Plan - Plan RESPIRATORY FAILURE RENAL FAILURE SEPSIS MIRTA/CSA PLAN O2 NEEDED ANTIBIOTICS BIPAP/SLEEP Procedures - Arterial Line Size (Gauge): 20
[2018-03-06] MEDS: Oral Hygiene Kit OROPHARYNG SCH ×4 (00:15→17:19)
[2018-03-06] MEDS: Heparin Drip 25,000 UNIT/250 ML BAG IV.CONT PRN (03:40)
[2018-03-06] MEDS: Piperacil/Tazo 2.25 GM Premix 50 ML IV.SIG SCH ×3 (05:23→21:31)
[2018-03-06] MEDS: Levothyroxine 50 MCG Tablet PO SCH (05:23)
[2018-03-06 06:25] LABS: Albumin 2.7 g/dL (3.4-5.0); Anion Gap 8 meq/L (5-15); Aspartate Aminotransferase 21 U/L (15-37); Blood Urea Nitrogen 16 mg/dL (7-18); Calcium 8.4 mg/dL (8.5-10.1); Carbon Dioxide 29.7 meq/L (21.0-32.0); Chloride 103 meq/L (98-107); Glomerular Filtration Rate 25 mL/min (>89); Glucose,Random 131 mg/dL (74-106); Magnesium 1.8 mg/dL (1.5-2.5); Sodium 141 meq/L (136-145)
[2018-03-06 06:26] LABS: Alanine Aminotransferase 38 U/L (12-78)
[2018-03-06 06:29] LABS: Alkaline Phosphatase 259 U/L (45-117); Total Protein 6.6 g/dL (6.4-8.2)
[2018-03-06] MEDS: Artificial Tears Opth Drops 15 ML Bottle EACH EYE SCH ×3 (08:14→23:00)
[2018-03-06] MEDS: Chlorhexidine 0.12% Oral Kit 15 ML UDC OROPHARYNG SCH ×2 (08:15→21:04)
--- NOTE | 2018-03-06 08:48 | P.PN ---
Subjective Interval history: With low K however plan for HD and lytes will be managed in HD today. Patient feels weak Not eating much No fever or chills. No n/v/d/c. Physical Exam Vital signs: Vital Signs 03/05/18 10:00 03/05/18 11:31 03/05/18 12:00 Temperature 98.5 F Pulse Rate 84 82 83 Respiratory Rate 20 24 Blood Pressure 135/60 Pulse Oximetry 96 03/05/18 14:00 03/05/18 15:44 03/05/18 16:00 Temperature 98.5 F Pulse Rate 86 83 85 Respiratory Rate 23 24 Blood Pressure 115/56 L Pulse Oximetry 98 03/05/18 17:00 03/05/18 18:00 03/05/18 19:00 Temperature Pulse Rate 85 85 91 H Respiratory Rate 24 38 H 40 H Blood Pressure 117/65 109/58 L 118/70 Pulse Oximetry 99 96 97 03/05/18 20:00 03/05/18 20:37 03/05/18 20:38 Temperature 98.3 F Pulse Rate 87 85 Respiratory Rate 43 H 22 Blood Pressure 116/55 L Pulse Oximetry 100 100 03/05/18 20:39 03/05/18 20:56 03/05/18 21:00 Temperature Pulse Rate 85 Respiratory Rate 18 Blood Pressure 128/61 Pulse Oximetry 100 100 100 03/05/18 22:00 03/05/18 23:00 03/05/18 23:42 Temperature Pulse Rate 84 81 78 Respiratory Rate 22 28 H 17 Blood Pressure 127/58 L 139/60 Pulse Oximetry 100 100 100 03/06/18 00:00 03/06/18 01:00 03/06/18 02:00 Temperature 98.6 F Pulse Rate 79 74 79 Respiratory Rate 12 17 19 Blood Pressure 132/60 114/55 L 118/58 L Pulse Oximetry 100 100 100 03/06/18 03:00 03/06/18 04:00 03/06/18 04:01 Temperature 99.0 F Pulse Rate 84 86 85 Respiratory Rate 28 H 27 H 25 H Blood Pressure 119/67 135/63 Pulse Oximetry 93 L 100 99 03/06/18 04:33 03/06/18 04:34 03/06/18 05:00 Temperature Pulse Rate 86 88 Respiratory Rate 16 26 H Blood Pressure 128/76 Pulse Oximetry 99 99 03/06/18 06:00 03/06/18 08:18 03/06/18 08:19 Temperature Pulse Rate 87 90 Respiratory Rate 20 Blood Pressure Pulse Oximetry 96 Intake & Output 03/05/18 03/06/18 03/06/18 18:59 06:59 18:59 Intake Total 590 / 590 780 / 780 Output Total 650 / 650 725 / 725 Balance -60 / -60 55 / 55 Weight 161.8 kg Intake: IV 350 / 350 300 / 300 Heparin/D5W 25,000 U/250 mL 25, 250 / 250 250 / 250 000 unit In 250 ml @ Per Protocol IV.CONT TITRATE PRN Rx #:[id number] Zosyn 2.25 GM Premix 50 ML @ 100 / 100 50 / 50 100 mls/hr IV.SIG Q8H ANA Rx#: [id number] Oral 240 / 240 480 / 480 Output: Urine Amount (Catheter) 650 / 650 725 / 725 Indwelling Urethral Catheter 650 / 650 725 / 725 Gastric Drainage 0 / 0 Oral Orogastric Tube 0 / 0 Other: Date of Last Bowel Movement 03/03/18 03/05/18 # Bowel Movements 0 0 # Incontinent Bowel Movements 0 Narrative: GENERAL: 72-year-old obese male currently on nasal cannula, in no acute distress SKIN: Warm and dry. Chronic venous stasis bilateral lower extremities CARDIOVASCULAR: Regular rate and rhythm. S1, S2 no S4. RESPIRATORY: Minutes breath sounds due to body habitus. No wheezing appreciated. GASTROINTESTINAL: Abdomen soft, non-tender, obese with large pannus. MUSCULOSKELETAL: Extremities with trace to 1+ bilateral lower extremity edema. NEUROLOGICAL: Moves all 4 extremity spontaneously. Strength slightly weaker in the lower extremities. - Urinary Catheter Management Indwelling Urethral Catheter Cath placed during this visit: yes, but has since been removed by the nurse Reason for continuing: Chronic Urinary Retention Insertion date: 02/26/18 Insertion time: 16:00 Removal date: 02/26/18 Removal time: 15:30 Results - Labs CBC & Chem 7: 03/06/18 09:51 03/06/18 04:41 Laboratory Results - last 24 hr 03/05/18 03/05/18 03/05/18 08:10 08:10 08:10 WBC 13.1 H RBC 2.88 L Hgb 8.4 L Hct 25.0 L MCV 86.7 MCH 29.0 MCHC 33.5 RDW 14.5 Plt Count 214 MPV 8.0 Neut % (Auto) 77.8 H Lymph % (Auto) 9.9 [place] % (Auto) 8.3 H Eos % (Auto) 3.5 Baso % (Auto) 0.5 Neut # (Auto) 10.2 H Lymph # (Auto) 1.3 [place] # (Auto) 1.1 H Eos # (Auto) 0.5 H Baso # (Auto) 0.1 WBC Differential . Differential Comment Auto diff final APTT 59.3 H Sodium 140 Potassium 3.0 L Chloride 104 Carbon Dioxide 28.5 Anion Gap 8 BUN 17 Creatinine 2.51 H Estimated GFR 26 L POC Glucose Random Glucose 145 H Calcium 8.0 L Phosphorus 3.1 Magnesium 1.7 Total Bilirubin 0.5 AST 23 ALT 42 Alkaline Phosphatase 254 H Total Protein 6.3 L Albumin 2.6 L 03/06/18 03/06/18 03/06/18 00:40 04:41 06:02 WBC RBC Hgb Hct MCV MCH MCHC RDW Plt Count MPV Neut % (Auto) Lymph % (Auto) [place] % (Auto) Eos % (Auto) Baso % (Auto) Neut # (Auto) Lymph # (Auto) [place] # (Auto) Eos # (Auto) Baso # (Auto) WBC Differential Differential Comment APTT Sodium 141 Potassium 3.0 L Chloride 103 Carbon Dioxide 29.7 Anion Gap 8 BUN 16 Creatinine 2.52 H Estimated GFR 25 L POC Glucose 154 H 151 H Random Glucose 131 H Calcium 8.4 L Phosphorus Magnesium 1.8 Total Bilirubin 0.5 AST 21 ALT 38 Alkaline Phosphatase 259 H Total Protein 6.6 Albumin 2.7 L Assessment and Plan - Plan Neuro/Psych: Acute toxic metabolic encephalopathy History of TIA Depression/anxiety Chronic peripheral neuropathy secondary to diabetes mellitus Dementia disorder NOS Holding gabapentin 600 mg 3 times daily for peripheral neuropathy. Resume at 200 mg 3 times daily 03/04 Holding scheduled morphine 15 mg every 12 hours for chronic pain Holding duloxetine 20 mg daily for depression. Resume clinically indicated Resume memantine 5 mg at night for dementia Acetaminophen 650 mg every 6 hours as needed fever Hydrocodone/acetaminophen 5/325 1 tablet every 4 hours as needed pain 1 through 5 Morphine sulfate 2 mg IV every 2 hours as needed pain [address] brain revealed no acute intracranial findings 02/26. Ammonia level 20 EEG 02/28 revealed mild slowing. No epileptic activity. MR brain 1211 revealed no acute intracranial findings See musculoskeletal MR C-spine She neurology consult. Thiamine, B12 and MMA pending. CV: Sinus bradycardia -resolved Paroxysmal atrial fibrillation currently normal sinus rhythm History of essential hypertension HyperLipidemia coronary artery disease Congestive heart failure unknown etiology Receive 0.5 mg atropine in route. Received 1 L normal saline crystalloid bolus. Dopamine drip is off Holding atorvastatin 20 mg a day for dyslipidemia. Resume clinically indicated Holding amiodarone 200 mg daily for atrial fibrillation with hyperkalemia. Resume clinically indicated. Holding amlodipine 5 mg daily metoprolol tartrate 205mg twice daily for hypertension resume clinically indicated Holding olmesartan 20 mg daily with hyper kalemia and acute kidney injury. Initial troponin 0 0.02. Trend was negative. 02/28 2D echocardiogram -EF 55-60%. LVH. Moderate MR. PA P 58 mmHg Resp: History of obstructive sleep apnea Right greater than left pleural effusion/exudative by light's criteria Acute respiratory failure Currently on PRVC ventilation Head of bed at 30 degrees Ventilator bundle Albuterol/ipratropium aerosols every 4 hours with albuterol aerosols every 2 as needed dyspnea Will likely need CPAP once extubated Spontaneous breathing trials and clinically indicated CT thoracentesis ordered right pleural effusion. -[address] chest revealed right greater than left pleural effusion. Anasarca.. Atelectasis right lower lobe Will attempt CPAP trial today to extubate. Today 03/03 GI: Elevated transaminases Elevated alkaline phosphatase Hospital left liver mass 5 cm Hypoalbuminemia Monitor transaminases. Check hepatitis panel was negative Tube feeds on hold for possible extubation pantoprazole for GI prophylaxis DC sodium/senna 1 tablet twice daily for bowel regimen. Avoid hepatotoxic medications Follow-up on CT abdomen/pelvis revealed small left liver mass. Follow-up MRI of liver in future : BPH Holding alfazosin 10 mg daily for BPH while hypotensive on vasopressors Maintain Orozco catheter Endo: 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 Hypothyroidism with elevated TSH On levothyroxine 50 mcg daily. Continue TSH was 5.02 Sliding scale insulin with Accu-Cheks to maintain euglycemia every 6 hours/ aspart insulin low regimen On sliding scale lispro insulin at home Renal: Acute kidney injury in the setting of chronic kidney disease stage IIIb Maintain Oorzco catheter Monitor urine output Accurate I's and O's Check urine eosinophils, sodium and creatinine Will receive hemodialysis 12/27. Also received 02/27. Per nephrology's request. Dr. Leal has been consulted. Defer dialysis to him in future -2500 cc 02/27 950 cc urine output past 24 hours Heme: Leukocytosis Normocytic anemia Chronic rivaroxaban use -holding 48 hours pending thoracentesis Elevated INR/PTT Monitor CBC daily. Follow trends. No indication for transfusion of blood products at this time. Resume baseline anticoagulant after CT head ID: Capnocytophaga sputum positive Blood cultures x2, and UA 02/26 no growth Sputum revealed gram-positive cocci in pairs and clusters 02/27. 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 Received acute hemodialysis today which will correct the underlying electrolyte derangement Potassium currently within normal limits. Recheck in a.m. Hypokalemia. Monitor and replace. MSK: Elevated BMI greater than 50 Bilateral lower extremity heel ulcers Cervical canal stenosis Weight loss encouraged PT evaluate and Wound care evaluate and treat MR C-spine revealed C2/3 ventral cord with LF thickening. Thecal sac 4 mm. Moderate C4/5 C5/6 and C6-7 stenosis. Mild C3/4 and C7/T1 stenosis Access -Right femoral CVL and right femoral arterial CVL day 3 placed the ED by . Discontinued 03/01 -Right IJ dialysis catheter Prophylaxis -GI -pantoprazole -DVT -SCD heparin gtt Discussed with the patient, ICU nurse. Procedures - Arterial Line Size (Gauge): 20
[2018-03-06] MEDS: Gabapentin 100 MG Capsule PO SCH ×2 (09:11→21:05)
[2018-03-06] MEDS: Amiodarone 200 MG Tablet PO SCH (09:11)
[2018-03-06] MEDS: Senna/Docusate Sodium 8.6/50 MG Tablet PO SCH ×2 (09:12→21:06)
[2018-03-06] MEDS: Ascorbic Acid 500 MG Tablet PO SCH ×2 (09:12→21:06)
[2018-03-06] MEDS: Nystatin 100,000 UNITS/GM Powder 15 GM Bottle TOPICAL SCH ×2 (09:13→21:05)
[2018-03-06 10:04] LABS: Baso # (Auto) 0.1 th/mm3 (0.0-0.2); Baso % (Auto) 0.8 % (0.0-2.0); Eos # (Auto) 0.4 th/mm3 (0.0-0.4); Eos % (Auto) 3.1 % (0.0-4.0); Hematocrit 27.6 % (39.0-51.0); Hemoglobin 9.2 gm/dL (13.0-17.0); Lymph % (Auto) 7.3 % (9.0-44.0); Mean Corpuscular HGB Conc 33.4 % (32.0-36.0); Mean Corpuscular Hemoglobin 28.9 pg (27.0-34.0); Mean Corpuscular Volume 86.5 fL (80.0-100.0); Mean Platelet Volume 7.6 fL (7.0-11.0); Mono # (Auto) 1.1 th/mm3 (0.0-0.9); Mono % (Auto) 7.7 % (0.0-8.0); Neut # (Auto) 11.5 th/mm3 (1.8-7.7); Neut % (Auto) 81.1 % (16.0-70.0); Platelet Count 205 th/mm3 (150-450); Red Blood Count 3.19 mil/mm3 (4.50-5.90); Red Cell Distribution Width 14.7 % (11.6-17.2); White Blood Count 14.2 th/mm3 (4.0-11.0)
--- NOTE | 2018-03-06 15:23 | P.PNNP ---
Subjective Interval history: patient off vent increase UOP K low Physical Exam Vital signs: Vital Signs 03/05/18 15:44 03/05/18 16:00 03/05/18 17:00 Temperature 98.5 F Pulse Rate 83 85 85 Respiratory Rate 23 24 24 Blood Pressure 115/56 L 117/65 Pulse Oximetry 98 99 03/05/18 18:00 03/05/18 19:00 03/05/18 20:00 Temperature 98.3 F Pulse Rate 85 91 H 87 Respiratory Rate 38 H 40 H 43 H Blood Pressure 109/58 L 118/70 116/55 L Pulse Oximetry 96 97 100 03/05/18 20:37 03/05/18 20:38 03/05/18 20:39 Temperature Pulse Rate 85 Respiratory Rate 22 Blood Pressure Pulse Oximetry 100 100 03/05/18 20:56 03/05/18 21:00 03/05/18 22:00 Temperature Pulse Rate 85 84 Respiratory Rate 18 22 Blood Pressure 128/61 127/58 L Pulse Oximetry 100 100 100 03/05/18 23:00 03/05/18 23:42 03/06/18 00:00 Temperature 98.6 F Pulse Rate 81 78 79 Respiratory Rate 28 H 17 12 Blood Pressure 139/60 132/60 Pulse Oximetry 100 100 100 03/06/18 01:00 03/06/18 02:00 03/06/18 03:00 Temperature Pulse Rate 74 79 84 Respiratory Rate 17 19 28 H Blood Pressure 114/55 L 118/58 L 119/67 Pulse Oximetry 100 100 93 L 03/06/18 04:00 03/06/18 04:01 03/06/18 04:33 Temperature 99.0 F Pulse Rate 86 85 86 Respiratory Rate 27 H 25 H 16 Blood Pressure 135/63 Pulse Oximetry 100 99 03/06/18 04:34 03/06/18 05:00 03/06/18 06:00 Temperature Pulse Rate 88 87 Respiratory Rate 26 H Blood Pressure 128/76 Pulse Oximetry 99 99 03/06/18 08:00 03/06/18 08:18 03/06/18 08:19 Temperature 98.4 F Pulse Rate 90 90 Respiratory Rate 24 20 Blood Pressure 130/71 Pulse Oximetry 96 96 03/06/18 10:00 Temperature Pulse Rate 90 Respiratory Rate Blood Pressure Pulse Oximetry Intake & Output 03/05/18 03/06/18 03/06/18 18:59 06:59 18:59 Intake Total 590 / 590 780 / 780 100 / 100 Output Total 650 / 650 725 / 725 Balance -60 / -60 55 / 55 100 / 100 Weight 161.8 kg Intake: IV 350 / 350 300 / 300 100 / 100 Heparin/D5W 25,000 U/250 mL 25, 250 / 250 250 / 250 000 unit In 250 ml @ Per Protocol IV.CONT TITRATE PRN Rx #:[id number] Zosyn 2.25 GM Premix 50 ML @ 100 / 100 50 / 50 100 / 100 100 mls/hr IV.SIG Q8H ANA Rx#: [id number] Oral 240 / 240 480 / 480 Output: Urine Amount (Catheter) 650 / 650 725 / 725 Indwelling Urethral Catheter 650 / 650 725 / 725 Gastric Drainage 0 / 0 Oral Orogastric Tube 0 / 0 Other: Date of Last Bowel Movement 03/03/18 03/05/18 03/03/18 # Bowel Movements 0 0 # Incontinent Bowel Movements 0 Narrative: GENERAL: 72-year-old obese male currently cannula, in no acute distress SKIN: Warm and dry. Chronic venous stasis bilateral lower extremities CARDIOVASCULAR: Regular rate and rhythm. S1, S2 no S4. RESPIRATORY: Minutes breath sounds due to body habitus. No wheezing appreciated.. GASTROINTESTINAL: Abdomen soft, non-tender, obese with large pannus. MUSCULOSKELETAL: Extremities with trace to 1+ bilateral lower extremity edema. NEUROLOGICAL: Moves all 4 extremity spontaneously. Strength slightly weaker in the lower extremities. - Urinary Catheter Management Indwelling Urethral Catheter Cath placed during this visit: yes, but has since been removed by the nurse Reason for continuing: Chronic Urinary Retention Insertion date: 02/26/18 Insertion time: 16:00 Removal date: 02/26/18 Removal time: 15:30 Assessment and Plan - Assessment (1) Acute renal failure Code(s): N17.9 - Acute kidney failure, unspecified Status: Acute (2) Chronic kidney disease Code(s): N18.9 - Chronic kidney disease, unspecified Status: Acute (3) Shock Code(s): R57.9 - Shock, unspecified Status: Acute (4) BMI 50.0-59.9, adult Code(s): Z68.43 - Body mass index (BMI) 50-59.9, adult Status: Chronic (5) 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 Code(s): E11.9 - Type 2 diabetes mellitus without complications Status: Chronic Qualifiers: 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 type: type 2 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 correction insulin use: with rougher operator use 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 complication status: with kidney complications 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 complication detail: with other kidney complication Qualified Code(s): E11.29 - Type 2 diabetes mellitus with other diabetic kidney complication; Z79.4 - skilled nursing (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 - Plan Patient is alert, breathing is better. Dialysis done on Tuesday, Has been non oliguric. Continue supportive care Continue to monitor his progress. Creatinine is 2.5, K was low and replaced. Avoid Nephrotoxins and watch for renal recovery. Increase urine output no need for further dialysis May discontinue Vas-Cath Procedures - Arterial Line Size (Gauge): 20
[2018-03-06] MEDS ORDERED: Potassium Bicarbonate 25 MEQ Effervescent Tablet PO ONE ×2 (16:00→16:26)
[2018-03-06] MEDS ORDERED: Magnesium Oxide 400 MG Tablet PO ONE (16:26)
--- NOTE | 2018-03-06 17:53 | P.PN ---
Subjective Interval history: ALERT ON O2 N/C NO SOB Physical Exam Vital signs: Vital Signs 03/05/18 18:00 03/05/18 19:00 03/05/18 20:00 Temperature 98.3 F Pulse Rate 85 91 H 87 Respiratory Rate 38 H 40 H 43 H Blood Pressure 109/58 L 118/70 116/55 L Pulse Oximetry 96 97 100 03/05/18 20:37 03/05/18 20:38 03/05/18 20:39 Temperature Pulse Rate 85 Respiratory Rate 22 Blood Pressure Pulse Oximetry 100 100 03/05/18 20:56 03/05/18 21:00 03/05/18 22:00 Temperature Pulse Rate 85 84 Respiratory Rate 18 22 Blood Pressure 128/61 127/58 L Pulse Oximetry 100 100 100 03/05/18 23:00 03/05/18 23:42 03/06/18 00:00 Temperature 98.6 F Pulse Rate 81 78 79 Respiratory Rate 28 H 17 12 Blood Pressure 139/60 132/60 Pulse Oximetry 100 100 100 03/06/18 01:00 03/06/18 02:00 03/06/18 03:00 Temperature Pulse Rate 74 79 84 Respiratory Rate 17 19 28 H Blood Pressure 114/55 L 118/58 L 119/67 Pulse Oximetry 100 100 93 L 03/06/18 04:00 03/06/18 04:01 03/06/18 04:33 Temperature 99.0 F Pulse Rate 86 85 86 Respiratory Rate 27 H 25 H 16 Blood Pressure 135/63 Pulse Oximetry 100 99 03/06/18 04:34 03/06/18 05:00 03/06/18 06:00 Temperature Pulse Rate 88 87 Respiratory Rate 26 H Blood Pressure 128/76 Pulse Oximetry 99 99 03/06/18 08:00 03/06/18 08:18 03/06/18 08:19 Temperature 98.4 F Pulse Rate 90 90 Respiratory Rate 24 20 Blood Pressure 130/71 Pulse Oximetry 96 96 03/06/18 10:00 03/06/18 12:00 03/06/18 14:00 Temperature 98.6 F Pulse Rate 92 H 90 89 Respiratory Rate 25 H Blood Pressure 152/106 H Pulse Oximetry 97 03/06/18 16:00 Temperature 98.5 F Pulse Rate 86 Respiratory Rate 22 Blood Pressure 108/66 Pulse Oximetry 95 Intake & Output 12/03/06/18 03/06/18 18:59 06:59 18:59 Intake Total 590 / 590 780 / 780 100 / 100 Output Total 650 / 650 725 / 725 Balance -60 / -60 55 / 55 100 / 100 Weight 161.8 kg Intake: IV 350 / 350 300 / 300 100 / 100 Heparin/D5W 25,000 U/250 mL 25, 250 / 250 250 / 250 000 unit In 250 ml @ Per Protocol IV.CONT TITRATE PRN Rx #:[id number] Zosyn 2.25 GM Premix 50 ML @ 100 / 100 50 / 50 100 / 100 100 mls/hr IV.SIG Q8H ANA Rx#: [id number] Oral 240 / 240 480 / 480 Output: Urine Amount (Catheter) 650 / 650 725 / 725 Indwelling Urethral Catheter 650 / 650 725 / 725 Gastric Drainage 0 / 0 Oral Orogastric Tube 0 / 0 Other: Date of Last Bowel Movement 03/03/18 03/05/18 03/03/18 # Bowel Movements 0 0 # Incontinent Bowel Movements 0 Narrative: GENERAL: 72-year-old obese male currently on nasal cannula, in no acute distress SKIN: Warm and dry. Chronic venous stasis bilateral lower extremities CARDIOVASCULAR: Regular rate and rhythm. S1, S2 no S4. RESPIRATORY: Minutes breath sounds due to body habitus. No wheezing appreciated. GASTROINTESTINAL: Abdomen soft, non-tender, obese with large pannus. MUSCULOSKELETAL: Extremities with trace to 1+ bilateral lower extremity edema. NEUROLOGICAL: Moves all 4 extremity spontaneously. Strength slightly weaker in the lower extremities. - Urinary Catheter Management Indwelling Urethral Catheter Cath placed during this visit: yes, but has since been removed by the nurse Reason for continuing: Chronic Urinary Retention Insertion date: 02/26/18 Insertion time: 16:00 Removal date: 02/26/18 Removal time: 15:30 Results - Labs CBC & Chem 7: 03/06/18 09:51 03/06/18 04:41 Laboratory Results - last 24 hr 03/06/18 03/06/18 03/06/18 00:40 04:41 06:02 WBC RBC Hgb Hct MCV MCH MCHC RDW Plt Count MPV Neut % (Auto) Lymph % (Auto) [place] % (Auto) Eos % (Auto) Baso % (Auto) Neut # (Auto) Lymph # (Auto) [place] # (Auto) Eos # (Auto) Baso # (Auto) WBC Differential Differential Comment APTT Sodium 141 Potassium 3.0 L Chloride 103 Carbon Dioxide 29.7 Anion Gap 8 BUN 16 Creatinine 2.52 H Estimated GFR 25 L POC Glucose 154 H 151 H Random Glucose 131 H Calcium 8.4 L Magnesium 1.8 Total Bilirubin 0.5 AST 21 ALT 38 Alkaline Phosphatase 259 H Total Protein 6.6 Albumin 2.7 L 03/06/18 03/06/18 03/06/18 09:51 09:51 12:58 WBC 14.2 H RBC 3.19 L Hgb 9.2 L Hct 27.6 L MCV 86.5 MCH 28.9 MCHC 33.4 RDW 14.7 Plt Count 205 MPV 7.6 Neut % (Auto) 81.1 H Lymph % (Auto) 7.3 L [place] % (Auto) 7.7 Eos % (Auto) 3.1 Baso % (Auto) 0.8 Neut # (Auto) 11.5 H Lymph # (Auto) 1.0 [place] # (Auto) 1.1 H Eos # (Auto) 0.4 Baso # (Auto) 0.1 WBC Differential . Differential Comment Auto diff final APTT 61.6 H Sodium Potassium Chloride Carbon Dioxide Anion Gap BUN Creatinine Estimated GFR POC Glucose 152 H Random Glucose Calcium Magnesium Total Bilirubin AST ALT Alkaline Phosphatase Total Protein Albumin Assessment and Plan - Plan RESPIRATORY FAILURE RENAL FAILURE SEPSIS MIRTA/CSA PLAN O2 NEEDED ANTIBIOTICS BIPAP/SLEEP Procedures - Arterial Line Size (Gauge): 20
[2018-03-07] MEDS: Levothyroxine 50 MCG Tablet PO SCH (05:30)
[2018-03-07] MEDS: Oral Hygiene Kit OROPHARYNG SCH ×5 (05:31→23:35)
[2018-03-07] MEDS: Piperacil/Tazo 2.25 GM Premix 50 ML IV.SIG SCH ×3 (05:32→21:06)
[2018-03-07 07:33] LABS: Baso % (Auto) 0.4 % (0.0-2.0); Eos # (Auto) 0.4 th/mm3 (0.0-0.4); Eos % (Auto) 3.2 % (0.0-4.0); Hematocrit 29.9 % (39.0-51.0); Hemoglobin 9.7 gm/dL (13.0-17.0); Lymph % (Auto) 8.5 % (9.0-44.0); Mean Corpuscular HGB Conc 32.3 % (32.0-36.0); Mean Corpuscular Hemoglobin 28.2 pg (27.0-34.0); Mean Corpuscular Volume 87.4 fL (80.0-100.0); Mean Platelet Volume 7.9 fL (7.0-11.0); Mono # (Auto) 0.6 th/mm3 (0.0-0.9); Mono % (Auto) 5.2 % (0.0-8.0); Neut # (Auto) 10.1 th/mm3 (1.8-7.7); Neut % (Auto) 82.7 % (16.0-70.0); Platelet Count 205 th/mm3 (150-450); Red Blood Count 3.43 mil/mm3 (4.50-5.90); Red Cell Distribution Width 14.5 % (11.6-17.2); White Blood Count 12.2 th/mm3 (4.0-11.0)
[2018-03-07 07:55] LABS: Calcium 8.3 mg/dL (8.5-10.1); Carbon Dioxide 27.8 meq/L (21.0-32.0); Potassium 3.2 meq/L (3.5-5.1)
--- NOTE | 2018-03-07 09:25 | P.PNNP ---
Subjective Interval history: Today he had hypotension and increasing shortness of breath chest x-ray showed pulmonary edema Physical Exam Vital signs: Vital Signs 03/06/18 10:00 03/06/18 12:00 03/06/18 14:00 Temperature 98.6 F Pulse Rate 92 H 90 89 Respiratory Rate 25 H Blood Pressure 152/106 H Pulse Oximetry 97 03/06/18 16:00 03/06/18 19:40 03/06/18 20:00 Temperature 98.5 F 98.3 F Pulse Rate 86 90 Respiratory Rate 22 27 H Blood Pressure 108/66 121/90 Pulse Oximetry 95 95 93 L 03/06/18 21:15 03/06/18 22:00 03/06/18 23:37 Temperature Pulse Rate 80 Respiratory Rate Blood Pressure Pulse Oximetry 96 99 03/06/18 23:39 03/07/18 00:00 03/07/18 02:00 Temperature 98.0 F Pulse Rate 76 83 Respiratory Rate 19 Blood Pressure 104/58 L Pulse Oximetry 99 99 03/07/18 04:00 03/07/18 04:17 03/07/18 04:18 Temperature 98.2 F Pulse Rate 85 Respiratory Rate 22 Blood Pressure 98/64 L Pulse Oximetry 97 99 99 03/07/18 05:49 03/07/18 08:00 Temperature Pulse Rate 93 H Respiratory Rate Blood Pressure Pulse Oximetry 96 Intake & Output 03/06/18 03/07/18 03/07/18 18:59 06:59 18:59 Intake Total 340 / 340 290 / 290 Output Total 600 / 600 400 / 400 Balance -260 / -260 -110 / -110 Weight 162 kg Intake: IV 100 / 100 50 / 50 Zosyn 2.25 GM Premix 50 ML @ 100 / 100 50 / 50 100 mls/hr IV.SIG Q8H [facility] Rx#: [id number] Oral 240 / 240 240 / 240 Output: Urine Amount (Catheter) 600 / 600 400 / 400 Indwelling Urethral Catheter 600 / 600 400 / 400 Other: Date of Last Bowel Movement 03/03/18 03/06/18 # Bowel Movements 1 0 # Incontinent Bowel Movements 0 Narrative: GENERAL: Well-nourished, well-developed short of breath patient. SKIN: Warm and dry. HEAD: Normocephalic. EYES: No scleral icterus. No injection or drainage. NECK: Supple, trachea midline. No JVD or lymphadenopathy. CARDIOVASCULAR: Regular rate and rhythm without murmurs, gallops, or rubs. RESPIRATORY: Breath sounds bilateral rales and rhonchi. GASTROINTESTINAL: Abdomen soft, non-tender, nondistended. EXTREMITIES: 2+ edema upper ext NEUROLOGICAL: Awake, alert, and oriented x 3. Non-focal. - Urinary Catheter Management Indwelling Urethral Catheter Cath placed during this visit: yes, but has since been removed by the nurse Reason for continuing: Chronic Urinary Retention Insertion date: 02/26/18 Insertion time: 16:00 Removal date: 02/26/18 Removal time: 15:30 Assessment and Plan - Assessment (1) Acute renal failure Code(s): N17.9 - Acute kidney failure, unspecified Status: Acute (2) Chronic kidney disease Code(s): N18.9 - Chronic kidney disease, unspecified Status: Acute (3) Shock Code(s): R57.9 - Shock, unspecified Status: Acute (4) BMI 50.0-59.9, adult Code(s): Z68.43 - Body mass index (BMI) 50-59.9, adult Status: Chronic (5) 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 Code(s): E11.9 - Type 2 diabetes mellitus without complications Status: Chronic Qualifiers: 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 type: type 2 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 prison insulin use: with superintendent container terminal use 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 complication status: with kidney complications 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 complication detail: with other kidney complication Qualified Code(s): E11.29 - Type 2 diabetes mellitus with other diabetic kidney complication; Z79.4 - terminal 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 - Plan Patient is alert, breathing is worse, patient has pulmonary edema chest x-ray reviewed Need to diuresis Echo showed EF of 55% however he has pulmonary hypertension Blood pressure low albumin ordered Lasix ordered 40 mg bolus followed by 10 mg/h Monitor BMP Agree with potassium replacement continue replacement Dr. Brantley to follow from tomorrow Procedures - Arterial Line Size (Gauge): 20
--- NOTE | 2018-03-07 09:36 | P.PN ---
Subjective Interval history: ALERT DENIES SOB Physical Exam Vital signs: Vital Signs 03/06/18 10:00 03/06/18 12:00 03/06/18 14:00 Temperature 98.6 F Pulse Rate 92 H 90 89 Respiratory Rate 25 H Blood Pressure 152/106 H Pulse Oximetry 97 03/06/18 16:00 03/06/18 19:40 03/06/18 20:00 Temperature 98.5 F 98.3 F Pulse Rate 86 90 Respiratory Rate 22 27 H Blood Pressure 108/66 121/90 Pulse Oximetry 95 95 93 L 03/06/18 21:15 03/06/18 22:00 03/06/18 23:37 Temperature Pulse Rate 80 Respiratory Rate Blood Pressure Pulse Oximetry 96 99 03/06/18 23:39 03/07/18 00:00 03/07/18 02:00 Temperature 98.0 F Pulse Rate 76 83 Respiratory Rate 19 Blood Pressure 104/58 L Pulse Oximetry 99 99 03/07/18 04:00 03/07/18 04:17 03/07/18 04:18 Temperature 98.2 F Pulse Rate 85 Respiratory Rate 22 Blood Pressure 98/64 L Pulse Oximetry 97 99 99 03/07/18 05:49 03/07/18 08:00 Temperature Pulse Rate 93 H Respiratory Rate Blood Pressure Pulse Oximetry 96 Intake & Output 03/06/18 03/07/18 03/07/18 18:59 06:59 18:59 Intake Total 340 / 340 290 / 290 Output Total 600 / 600 400 / 400 Balance -260 / -260 -110 / -110 Weight 162 kg Intake: IV 100 / 100 50 / 50 Zosyn 2.25 GM Premix 50 ML @ 100 / 100 50 / 50 100 mls/hr IV.SIG Q8H [facility] Rx#: [id number] Oral 240 / 240 240 / 240 Output: Urine Amount (Catheter) 600 / 600 400 / 400 Indwelling Urethral Catheter 600 / 600 400 / 400 Other: Date of Last Bowel Movement 03/03/18 03/06/18 # Bowel Movements 1 0 # Incontinent Bowel Movements 0 Narrative: GENERAL: Well-nourished, well-developed short of breath patient. SKIN: Warm and dry. HEAD: Normocephalic. EYES: No scleral icterus. No injection or drainage. NECK: Supple, trachea midline. No JVD or lymphadenopathy. CARDIOVASCULAR: Regular rate and rhythm without murmurs, gallops, or rubs. RESPIRATORY: Breath sounds bilateral rales and rhonchi. GASTROINTESTINAL: Abdomen soft, non-tender, nondistended. EXTREMITIES: 2+ edema upper ext NEUROLOGICAL: Awake, alert, and oriented x 3. Non-focal. - Urinary Catheter Management Indwelling Urethral Catheter Cath placed during this visit: yes, but has since been removed by the nurse Reason for continuing: Chronic Urinary Retention Insertion date: 02/26/18 Insertion time: 16:00 Removal date: 02/26/18 Removal time: 15:30 Results - Labs CBC & Chem 7: 03/07/18 06:51 03/07/18 06:51 Laboratory Results - last 24 hr 03/06/18 03/06/18 03/06/18 09:51 09:51 12:58 WBC 14.2 H RBC 3.19 L Hgb 9.2 L Hct 27.6 L MCV 86.5 MCH 28.9 MCHC 33.4 RDW 14.7 Plt Count 205 MPV 7.6 Neut % (Auto) 81.1 H Lymph % (Auto) 7.3 L [place] % (Auto) 7.7 Eos % (Auto) 3.1 Baso % (Auto) 0.8 Neut # (Auto) 11.5 H Lymph # (Auto) 1.0 [place] # (Auto) 1.1 H Eos # (Auto) 0.4 Baso # (Auto) 0.1 WBC Differential . Differential Comment Auto diff final APTT 61.6 H Sodium Potassium Chloride Carbon Dioxide Anion Gap BUN Creatinine Estimated GFR POC Glucose 152 H Random Glucose Calcium Magnesium 03/07/18 03/07/18 03/07/18 05:19 06:51 06:51 WBC 12.2 H RBC 3.43 L Hgb 9.7 L Hct 29.9 L MCV 87.4 MCH 28.2 MCHC 32.3 RDW 14.5 Plt Count 205 MPV 7.9 Neut % (Auto) 82.7 H Lymph % (Auto) 8.5 L [place] % (Auto) 5.2 Eos % (Auto) 3.2 Baso % (Auto) 0.4 Neut # (Auto) 10.1 H Lymph # (Auto) 1.0 [place] # (Auto) 0.6 Eos # (Auto) 0.4 Baso # (Auto) 0.0 WBC Differential . Differential Comment Auto diff final APTT Sodium 139 Potassium 3.2 L Chloride 101 Carbon Dioxide 27.8 Anion Gap 10 BUN 17 Creatinine 2.62 H Estimated GFR 24 L POC Glucose 146 H Random Glucose 145 H Calcium 8.3 L Magnesium 2.0 03/07/18 08:09 WBC RBC Hgb Hct MCV MCH MCHC RDW Plt Count MPV Neut % (Auto) Lymph % (Auto) [place] % (Auto) Eos % (Auto) Baso % (Auto) Neut # (Auto) Lymph # (Auto) [place] # (Auto) Eos # (Auto) Baso # (Auto) WBC Differential Differential Comment APTT 49.5 H Sodium Potassium Chloride Carbon Dioxide Anion Gap BUN Creatinine Estimated GFR POC Glucose Random Glucose Calcium Magnesium Assessment and Plan - Plan RESPIRATORY FAILURE RENAL FAILURE SEPSIS MIRTA/CSA PLAN O2 NEEDED ANTIBIOTICS BIPAP/SLEEP Procedures - Arterial Line Size (Gauge): 20
--- NOTE | 2018-03-07 09:40 | XR ---
EXAM DATE: 03/07/2018 9:28 AM EST AGE/SEX: 72 years / Male INDICATIONS: Respiratory disease. CLINICAL DATA: This is the patient's subsequent encounter. Patient reports that signs and symptoms h ave been present for 1 week and indicates a pain score of 0/10. MEDICAL/SURGICAL HISTORY: None. None. [place]PAR[place]: [facility] [place]. . FINDINGS: Interval removal of right IJ temporary dialysis catheter. Persistent bilateral diffuse hazy opacities extending to the mid to upper lung zones. Cardiac silhouette is enlarged. Central pulmonary vascular ity is prominent and indistinct. Remainder of the exam is unchanged. CONCLUSION: 1. Cardiomegaly with persistent pulmonary edema pattern. 2. Moderate bilateral pleural effusions with associated airspace disease in the lower lobes bilatera lly. Electronically signed by: Abelardo Montoya MD Board Certified Radiologist 03/07/2018 9:39 AM RENETTA Alvarez
[2018-03-07] MEDS: Artificial Tears Opth Drops 15 ML Bottle EACH EYE SCH ×3 (09:59→23:35)
[2018-03-07] MEDS ORDERED: Potassium Bicarbonate 25 MEQ Effervescent Tablet PO ONE (10:00)
[2018-03-07] MEDS: Gabapentin 100 MG Capsule PO SCH ×2 (10:00→21:06)
[2018-03-07] MEDS: Chlorhexidine 0.12% Oral Kit 15 ML UDC OROPHARYNG SCH ×2 (10:00→21:06)
[2018-03-07] MEDS ORDERED: Albumin Human 25% Inj 100 ML IV.SIG ONE (10:00)
[2018-03-07] MEDS: Senna/Docusate Sodium 8.6/50 MG Tablet PO SCH ×2 (10:01→21:06)
[2018-03-07] MEDS: Amiodarone 200 MG Tablet PO SCH (10:01)
[2018-03-07] MEDS: Ascorbic Acid 500 MG Tablet PO SCH ×2 (10:01→21:06)
[2018-03-07] MEDS: Nystatin 100,000 UNITS/GM Powder 15 GM Bottle TOPICAL SCH ×2 (10:02→21:06)
[2018-03-07] MEDS: Furosemide Inj 100 MG in Sodium Chlor 0.9% Inj 90 ML IV.CONT SCH ×2 (10:03→19:40)
[2018-03-07] MEDS: Heparin Drip 25,000 UNIT/250 ML BAG IV.CONT PRN (10:26)
--- NOTE | 2018-03-07 14:03 | P.PN ---
Subjective Interval history: More sob today. No fever or chills. Feels tired. No n/v/d/c. Low BP earlier today and received ~400 cc . epeat BP better map> 65. CXR however with congestion. Placed on lasix per nephro and received albumin Patient is currently on bipap, sob Physical Exam Vital signs: Vital Signs 03/06/18 16:00 03/06/18 19:40 03/06/18 20:00 Temperature 98.5 F 98.3 F Pulse Rate 86 90 Respiratory Rate 22 27 H Blood Pressure 108/66 121/90 Pulse Oximetry 95 95 93 L 03/06/18 21:15 03/06/18 22:00 03/06/18 23:37 Temperature Pulse Rate 80 Respiratory Rate Blood Pressure Pulse Oximetry 96 99 03/06/18 23:39 03/07/18 00:00 03/07/18 02:00 Temperature 98.0 F Pulse Rate 76 83 Respiratory Rate 19 Blood Pressure 104/58 L Pulse Oximetry 99 99 03/07/18 04:00 03/07/18 04:17 03/07/18 04:18 Temperature 98.2 F Pulse Rate 85 Respiratory Rate 22 Blood Pressure 98/64 L Pulse Oximetry 97 99 99 03/07/18 05:49 03/07/18 08:00 03/07/18 10:00 Temperature 98.4 F Pulse Rate 93 H 91 H 91 H Respiratory Rate 29 H Blood Pressure 89/46 L Pulse Oximetry 95 03/07/18 11:14 03/07/18 12:00 Temperature Pulse Rate 93 H Respiratory Rate Blood Pressure Pulse Oximetry 98 Intake & Output 03/06/18 03/07/18 03/07/18 18:59 06:59 18:59 Intake Total 590 / 590 290 / 290 150 / 150 Output Total 600 / 600 400 / 400 Balance -10 / -10 -110 / -110 150 / 150 Weight 162 kg Intake: IV 350 / 350 50 / 50 150 / 150 Heparin/D5W 25,000 U/250 mL 25, 250 / 250 000 unit In 250 ml @ Per Protocol IV.CONT TITRATE PRN Rx #:[id number] Flexbumin 25% Inj 100 ML @ 60 100 / 100 mls/hr IV.SIG ONCE ONE Rx#: [id number] Zosyn 2.25 GM Premix 50 ML @ 100 / 100 50 / 50 50 / 50 100 mls/hr IV.SIG Q8H [facility] Rx#: [id number] Oral 240 / 240 240 / 240 Output: Urine Amount (Catheter) 600 / 600 400 / 400 Indwelling Urethral Catheter 600 / 600 400 / 400 Other: Date of Last Bowel Movement 03/03/18 03/06/18 03/03/18 # Bowel Movements 1 0 # Incontinent Bowel Movements 0 Narrative: GENERAL: 72-year-old obese male currently on biapa, with sob. SKIN: Warm and dry. Chronic venous stasis bilateral lower extremities CARDIOVASCULAR: Regular rate and rhythm. S1, S2 no S4. RESPIRATORY: Decreased breath sounds. SOB. GASTROINTESTINAL: Abdomen soft, non-tender, obese with large pannus. MUSCULOSKELETAL: Extremities with trace to 1+ bilateral lower extremity edema. NEUROLOGICAL: Moves all 4 extremity spontaneously. Strength slightly weaker in the lower extremities. - Urinary Catheter Management Indwelling Urethral Catheter Cath placed during this visit: yes, but has since been removed by the nurse Reason for continuing: Chronic Urinary Retention Insertion date: 02/26/18 Insertion time: 16:00 Removal date: 02/26/18 Removal time: 15:30 Results - Labs CBC & Chem 7: 03/07/18 06:51 03/07/18 06:51 Laboratory Results - last 24 hr 03/07/18 03/07/18 03/07/18 05:19 06:51 06:51 WBC 12.2 H RBC 3.43 L Hgb 9.7 L Hct 29.9 L MCV 87.4 MCH 28.2 MCHC 32.3 RDW 14.5 Plt Count 205 MPV 7.9 Neut % (Auto) 82.7 H Lymph % (Auto) 8.5 L [place] % (Auto) 5.2 Eos % (Auto) 3.2 Baso % (Auto) 0.4 Neut # (Auto) 10.1 H Lymph # (Auto) 1.0 [place] # (Auto) 0.6 Eos # (Auto) 0.4 Baso # (Auto) 0.0 WBC Differential . Differential Comment Auto diff final APTT Sodium 139 Potassium 3.2 L Chloride 101 Carbon Dioxide 27.8 Anion Gap 10 BUN 17 Creatinine 2.62 H Estimated GFR 24 L POC Glucose 146 H Random Glucose 145 H Calcium 8.3 L Magnesium 2.0 03/07/18 03/07/18 08:09 12:36 WBC RBC Hgb Hct MCV MCH MCHC RDW Plt Count MPV Neut % (Auto) Lymph % (Auto) [place] % (Auto) Eos % (Auto) Baso % (Auto) Neut # (Auto) Lymph # (Auto) [place] # (Auto) Eos # (Auto) Baso # (Auto) WBC Differential Differential Comment APTT 49.5 H Sodium Potassium Chloride Carbon Dioxide Anion Gap BUN Creatinine Estimated GFR POC Glucose 153 H Random Glucose Calcium Magnesium - Imaging Impressions Chest X-Ray 03/07/18 00:00 CONCLUSION: 1. Cardiomegaly with persistent pulmonary edema pattern. 2. Moderate bilateral pleural effusions with associated airspace disease in the lower lobes bilaterally. Assessment and Plan - Plan Neuro/Psych: Acute toxic metabolic encephalopathy History of TIA Depression/anxiety Chronic peripheral neuropathy secondary to diabetes mellitus Dementia disorder NOS Holding gabapentin 600 mg 3 times daily for peripheral neuropathy. Resume at 200 mg 3 times daily 03/04 Holding scheduled morphine 15 mg every 12 hours for chronic pain Holding duloxetine 20 mg daily for depression. Resume clinically indicated Resume memantine 5 mg at night for dementia Acetaminophen 650 mg every 6 hours as needed fever Hydrocodone/acetaminophen 5/325 1 tablet every 4 hours as needed pain 1 through 5 Morphine sulfate 2 mg IV every 2 hours as needed pain [address] brain revealed no acute intracranial findings 02/26. Ammonia level 20 EEG 02/28 revealed mild slowing. No epileptic activity. MR brain 1211 revealed no acute intracranial findings See musculoskeletal MR C-spine She neurology consult. Thiamine, B12 and MMA pending. CV: Sinus bradycardia -resolved Paroxysmal atrial fibrillation currently normal sinus rhythm History of essential hypertension HyperLipidemia coronary artery disease Congestive heart failure unknown etiology Receive 0.5 mg atropine in route. Received 1 L normal saline crystalloid bolus. Dopamine drip is off Holding atorvastatin 20 mg a day for dyslipidemia. Resume clinically indicated Holding amiodarone 200 mg daily for atrial fibrillation with hyperkalemia. Resume clinically indicated. Holding amlodipine 5 mg daily metoprolol tartrate 205mg twice daily for hypertension resume clinically indicated Holding olmesartan 20 mg daily with hyper kalemia and acute kidney injury. Initial troponin 0 0.02. Trend was negative. 02/28 2D echocardiogram -EF 55-60%. LVH. Moderate MR. PA P 58 mmHg Resp: History of obstructive sleep apnea Right greater than left pleural effusion/exudative by light's criteria Acute respiratory failure Currently on PRVC ventilation Head of bed at 30 degrees Ventilator bundle Albuterol/ipratropium aerosols every 4 hours with albuterol aerosols every 2 as needed dyspnea Will likely need CPAP once extubated Spontaneous breathing trials and clinically indicated CT thoracentesis ordered right pleural effusion. -[address] chest revealed right greater than left pleural effusion. Anasarca.. Atelectasis right lower lobe Will attempt CPAP trial today to extubate. Today 03/03 GI: Elevated transaminases Elevated alkaline phosphatase Hospital left liver mass 5 cm Hypoalbuminemia Monitor transaminases. Check hepatitis panel was negative Tube feeds on hold for possible extubation pantoprazole for GI prophylaxis DC sodium/senna 1 tablet twice daily for bowel regimen. Avoid hepatotoxic medications Follow-up on CT abdomen/pelvis revealed small left liver mass. Follow-up MRI of liver in future : BPH Holding alfazosin 10 mg daily for BPH while hypotensive on vasopressors Maintain Orozco catheter Endo: 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 Hypothyroidism with elevated TSH On levothyroxine 50 mcg daily. Continue TSH was 5.02 Sliding scale insulin with Accu-Cheks to maintain euglycemia every 6 hours/ aspart insulin low regimen On sliding scale lispro insulin at home Renal: Acute kidney injury in the setting of chronic kidney disease stage IIIb Maintain Orozco catheter Monitor urine output Accurate I's and O's Check urine eosinophils, sodium and creatinine Will receive hemodialysis 12/27. Also received 02/27. Per nephrology's request. Dr. Leal has been consulted. Defer dialysis to him in future -2500 cc 02/27 950 cc urine output past 24 hours 03/07/18 noted with low BP, received 500 cc NS, BP is better controlled however patient wit sob. CXR reviewed appears with fluid overload. RReceived albumin and started on lasix, precaution as patient with low BP Heme: Leukocytosis Normocytic anemia Chronic rivaroxaban use -holding 48 hours pending thoracentesis Elevated INR/PTT Monitor CBC daily. Follow trends. No indication for transfusion of blood products at this time. Resume baseline anticoagulant after CT head ID: Capnocytophaga sputum positive Blood cultures x2, and UA 02/26 no growth Sputum revealed gram-positive cocci in pairs and clusters 02/27. 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 Received acute hemodialysis today which will correct the underlying electrolyte derangement Potassium currently within normal limits. Recheck in a.m. Hypokalemia. Monitor and replace. MSK: Elevated BMI greater than 50 Bilateral lower extremity heel ulcers Cervical canal stenosis Weight loss encouraged PT evaluate and Wound care evaluate and treat MR C-spine revealed C2/3 ventral cord with LF thickening. Thecal sac 4 mm. Moderate C4/5 C5/6 and C6-7 stenosis. Mild C3/4 and C7/T1 stenosis Access -Right femoral CVL and right femoral arterial CVL day 3 placed the ED by . Discontinued 03/01 -Right IJ dialysis catheter Prophylaxis -GI -pantoprazole -DVT -SCD heparin gtt Discussed with the patient, ICU nurse. Procedures - Arterial Line Size (Gauge): 20
[2018-03-07 17:22] LABS: ABG Base Excess 2.4 mmol/L (-2-2); ABG PCO2 42 mmHg (38-42); ABG PO2 79 mmHG (61-120)
[2018-03-07] MEDS: Potassium Chloride 25 MEQ Effervescent Tablet PO SCH (21:05)
[2018-03-08] MEDS: Heparin Drip 25,000 UNIT/250 ML BAG IV.CONT PRN ×2 (00:25→15:43)
[2018-03-08 03:53] LABS: Baso # (Auto) 0.1 th/mm3 (0.0-0.2); Baso % (Auto) 0.4 % (0.0-2.0); Eos # (Auto) 0.2 th/mm3 (0.0-0.4); Hematocrit 27.3 % (39.0-51.0); Lymph # (Auto) 0.9 th/mm3 (1.0-4.8); Lymph % (Auto) 5.5 % (9.0-44.0); Mean Corpuscular HGB Conc 33.1 % (32.0-36.0); Mean Corpuscular Hemoglobin 28.3 pg (27.0-34.0); Mean Corpuscular Volume 85.7 fL (80.0-100.0); Mean Platelet Volume 8.5 fL (7.0-11.0); Mono % (Auto) 6.2 % (0.0-8.0); Neut % (Auto) 86.9 % (16.0-70.0); Platelet Count 194 th/mm3 (150-450); Red Blood Count 3.18 mil/mm3 (4.50-5.90); Red Cell Distribution Width 14.5 % (11.6-17.2); White Blood Count 16.1 th/mm3 (4.0-11.0)
[2018-03-08] MEDS: Oral Hygiene Kit OROPHARYNG SCH ×3 (03:55→16:05)
[2018-03-08 04:20] LABS: Calcium 8.5 mg/dL (8.5-10.1); Magnesium 1.8 mg/dL (1.5-2.5); Potassium 3.5 meq/L (3.5-5.1)
[2018-03-08] MEDS: Furosemide Inj 100 MG in Sodium Chlor 0.9% Inj 90 ML IV.CONT SCH ×2 (05:25→15:43)
[2018-03-08] MEDS: Piperacil/Tazo 2.25 GM Premix 50 ML IV.SIG SCH ×3 (05:37→22:58)
[2018-03-08] MEDS: Levothyroxine 50 MCG Tablet PO SCH (05:38)
[2018-03-08] MEDS: Artificial Tears Opth Drops 15 ML Bottle EACH EYE SCH ×2 (06:17→14:28)
[2018-03-08] MEDS: Senna/Docusate Sodium 8.6/50 MG Tablet PO SCH ×2 (08:11→21:58)
[2018-03-08] MEDS: Ascorbic Acid 500 MG Tablet PO SCH ×2 (08:11→21:57)
[2018-03-08] MEDS: Amiodarone 200 MG Tablet PO SCH (08:12)
[2018-03-08] MEDS: Chlorhexidine 0.12% Oral Kit 15 ML UDC OROPHARYNG SCH ×2 (08:12→21:56)
[2018-03-08] MEDS: Gabapentin 100 MG Capsule PO SCH ×2 (08:12→21:57)
[2018-03-08] MEDS: Morphine Sulfate Inj 2 MG/ML Vial IV.PUSH PRN ×2 (08:13→17:23)
[2018-03-08] MEDS: Nystatin 100,000 UNITS/GM Powder 15 GM Bottle TOPICAL SCH ×2 (08:19→21:58)
[2018-03-08] MEDS: Potassium Chloride 25 MEQ Effervescent Tablet PO SCH ×2 (08:19→21:56)
--- NOTE | 2018-03-08 10:32 | P.PNIM ---
Subjective Interval history: In bed appears sob , on Bipap. Says he was able to eat today some. No fevr or chills. No n/v/d/c. Denies palpitations. Feels very tired. Physical Exam Vital signs: Last Vital Signs Temp 98.5 F 03/08/18 08:00 Pulse 99 H 03/08/18 08:00 Resp 26 H 03/08/18 08:00 BP 147/62 H 03/08/18 08:00 Pulse Ox 95 03/08/18 08:05 Intake & Output 03/06/18 03/07/18 03/08/18 03/09/18 06:59 06:59 06:59 06:59 Intake Total 1370 / 1370 880 / 880 1110 / 1110 Output Total 1375 / 1375 1000 / 1000 1300 / 1300 Balance -5 / -5 -120 / -120 -190 / -190 Weight 161.8 kg 162 kg 162 kg Narrative: GENERAL: 72-year-old obese male currently on biapa, with sob. SKIN: Warm and dry. Chronic venous stasis bilateral lower extremities CARDIOVASCULAR: Regular rate and rhythm. S1, S2 no S4. RESPIRATORY: Decreased breath sounds. SOB. GASTROINTESTINAL: Abdomen soft, non-tender, obese with large pannus. MUSCULOSKELETAL: Extremities with trace to 1+ bilateral lower extremity edema. NEUROLOGICAL: Moves all 4 extremity spontaneously. Strength slightly weaker in the lower extremities. Urinary Catheter Management Indwelling Urethral Catheter: Cath placed during this visit: yes, but has since been removed by the nurse Insertion date: 02/26/18 Insertion time: 16:00 Removal date: 02/26/18 Removal time: 15:30 Results Labs CBC & Chem 7: 03/08/18 03:14 03/08/18 03:14 Assessment and Plan Plan Neuro/Psych: Acute toxic metabolic encephalopathy History of TIA Depression/anxiety Chronic peripheral neuropathy secondary to diabetes mellitus Dementia disorder NOS Holding gabapentin 600 mg 3 times daily for peripheral neuropathy. Resume at 200 mg 3 times daily 03/04 Holding scheduled morphine 15 mg every 12 hours for chronic pain Holding duloxetine 20 mg daily for depression. Resume clinically indicated Resume memantine 5 mg at night for dementia Acetaminophen 650 mg every 6 hours as needed fever Hydrocodone/acetaminophen 5/325 1 tablet every 4 hours as needed pain 1 through 5 Morphine sulfate 2 mg IV every 2 hours as needed pain [address] brain revealed no acute intracranial findings 02/26. Ammonia level 20 EEG 02/28 revealed mild slowing. No epileptic activity. MR brain 1211 revealed no acute intracranial findings See musculoskeletal MR C-spine She neurology consult. Thiamine, B12 and MMA pending. CV: Sinus bradycardia -resolved Paroxysmal atrial fibrillation currently normal sinus rhythm History of essential hypertension HyperLipidemia coronary artery disease Congestive heart failure unknown etiology Receive 0.5 mg atropine in route. Received 1 L normal saline crystalloid bolus. Dopamine drip is off Holding atorvastatin 20 mg a day for dyslipidemia. Resume clinically indicated Holding amiodarone 200 mg daily for atrial fibrillation with hyperkalemia. Resume clinically indicated. Holding amlodipine 5 mg daily metoprolol tartrate 205mg twice daily for hypertension resume clinically indicated Holding olmesartan 20 mg daily with hyper kalemia and acute kidney injury. Initial troponin 0 0.02. Trend was negative. 02/28 2D echocardiogram -EF 55-60%. LVH. Moderate MR. PA P 58 mmHg Consult his cardiology Dr justice Monitor on telemetry Resp: History of obstructive sleep apnea Right greater than left pleural effusion/exudative by light's criteria Acute respiratory failure Currently on PRVC ventilation Head of bed at 30 degrees Ventilator bundle Albuterol/ipratropium aerosols every 4 hours with albuterol aerosols every 2 as needed dyspnea Will likely need CPAP once extubated Spontaneous breathing trials and clinically indicated CT thoracentesis ordered right pleural effusion. -[address] chest revealed right greater than left pleural effusion. Anasarca.. Atelectasis right lower lobe Will attempt CPAP trial today to extubate. Today 03/03 GI: Elevated transaminases Elevated alkaline phosphatase Hospital left liver mass 5 cm Hypoalbuminemia Monitor transaminases. Check hepatitis panel was negative Tube feeds on hold for possible extubation pantoprazole for GI prophylaxis DC sodium/senna 1 tablet twice daily for bowel regimen. Avoid hepatotoxic medications Follow-up on CT abdomen/pelvis revealed small left liver mass. Follow-up MRI of liver in future : BPH Holding alfazosin 10 mg daily for BPH while hypotensive on vasopressors Maintain Orozco catheter Endo: 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 Hypothyroidism with elevated TSH On levothyroxine 50 mcg daily. Continue TSH was 5.02 Sliding scale insulin with Accu-Cheks to maintain euglycemia every 6 hours/ aspart insulin low regimen On sliding scale lispro insulin at home Renal: Acute kidney injury in the setting of chronic kidney disease stage IIIb Maintain Orozco catheter Monitor urine output Accurate I's and O's Check urine eosinophils, sodium and creatinine Will receive hemodialysis 12/27. Also received 02/27. Per nephrology's request. Dr. Leal has been consulted. Defer dialysis to him in future -2500 cc 02/27 950 cc urine output past 24 hours 03/07/18 noted with low BP, received 500 cc NS, BP is better controlled however patient wit sob. CXR reviewed appears with fluid overload. RReceived albumin and started on lasix, precaution as patient with low BP Heme: Leukocytosis Normocytic anemia Chronic rivaroxaban use -holding 48 hours pending thoracentesis Elevated INR/PTT Monitor CBC daily. Follow trends. No indication for transfusion of blood products at this time. Resume baseline anticoagulant after CT head ID: Capnocytophaga sputum positive Blood cultures x2, and UA 02/26 no growth Sputum revealed gram-positive cocci in pairs and clusters 02/27. 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 Received acute hemodialysis today which will correct the underlying electrolyte derangement Potassium currently within normal limits. Recheck in a.m. Hypokalemia. Monitor and replace. MSK: Elevated BMI greater than 50 Bilateral lower extremity heel ulcers Cervical canal stenosis Weight loss encouraged PT evaluate and Wound care evaluate and treat MR C-spine revealed C2/3 ventral cord with LF thickening. Thecal sac 4 mm. Moderate C4/5 C5/6 and C6-7 stenosis. Mild C3/4 and C7/T1 stenosis Access -Right femoral CVL and right femoral arterial CVL day 3 placed the ED by . Discontinued 03/01 -Right IJ dialysis catheter Prophylaxis -GI -pantoprazole -DVT -SCD heparin gtt Discussed with the patient, ICU nurse. Progress Note: Quality VTE Deep Vein Thrombosis/Pulmonary Embolism Present on Admission: No Procedures Arterial Line Size (Gauge): 20
--- NOTE | 2018-03-08 14:53 | P.DIET ---
Nutritional Evaluation Type of nutrition evaluation: follow-up (TF FU) Nutrition consult regarding: Tube Feeding Screening comments: 03/01 TF review Objective - Diagnosis multi organ failure, hyperkalemia, AMS - Objective % IBW: 201 (IBW = 178lb) Body Weight Used for Calculations: IBW Energy Needs - Lower Range (kCal/kg): 25 Energy Needs - Upper Range (kCal/kg): 30 Lower Limit kCal/kg (kCals): 2,023 Upper Limit kCal/kg (kCals): 2,427 Lower Limit Protein Factor (Grams per Kg): 1.2 Upper Limit Protein Factor (Grams per Kg): 1.5 Lower Protein Needs (Protein): 97 Upper Protein Needs (Protein): 121 Dietitian Reviewed in Medical Record: Current diet, Curent medications, Intake & Output, Labs, Medical history Diet Order: TF'ing Objective Comments: PMH: acute renal failure, clostridium, difficile carrier, s/p L foot surgery MedS: vit C, Synthroid, MvI, zosyn, zinc Labs: BUN 17 , Cr 2.7, GFR 23, POc 141, 174 Skin: multiple pressure injuries (midline buttocks, L heel, penis, DTI sacrum) [facility] 03/08 Assessment Assessment: TF FU 03/08; Pt extubated 03/03 and currently on bipap. Pt no longer receiving HD. Noted pt fluid overloaded (03/07) and now receiving Lasix, will continue to monitor electrolytes. Current diet order is [facility] soft cardiac diabetic diet. Pt with poor PO intake eating 25% or less at each meal. Will recommend Nepro supplement BID to support PO intake and provide additional protein for wound healing. Will continue to monitor wounds, PO intake, urine output, labs. Dietitian following. From previous note 03/01; Pt receiving dialysis today 03/01. Pt on Nepro 1.8 @ 55mL/hr continuous per RD to recommend Nepro 1.8 @ 60mL x 22 hrs (d/t Synthroid dosing) to provide 2376kcal, 107g of protein, and 960mL of free water to best meet pts nutritional needs. Wound notes reviewed, will continue to monitor wound status. Monitor TF tolerance and renal labs. Labs reviewed, dietitian following. Recommendations: 1. Nepro supplement BID 2. Encourage PO intake 3. Will continue to monitor Dietitian to Monitor: Lab values, Renal labs, Intake & Output, Tube feeding tolerance, Wound/skin status, Medical course
--- NOTE | 2018-03-08 14:54 | P.CONCA ---
History of Present Illness Service: Cardiology Consult date: 03/08/18 Requesting Physician: Mel Morales Reason for Consult: CHF with perserved EF Primary Care Provider: Liang Esparza MD Chief Complaint: Acute encephalopathy, acute kidney injury with hyperkalemia History of Present Illness: This is a 72-year-old male known to Dr. Booth with a past medical history of atrial fibrillation/flutter, hypertension, hyperlipidemia, arteriosclerotic heart disease, cerebrovascular disease, diabetes mellitus, CHF with preserved EF, severe MIRTA, chronic kidney disease, peripheral neuropathy and morbid obesity. Echo on 02/28/18 shows LVH, EF 55-60% and trace-mild mitral valve regurgitation. On 09/16/14 he had a Yajaira scan that showed an inferior wall infarct with a stressed EF 64% and a resting EF of 69%. He had a left heart cath on 03/18/10 that showed 20% stenosis of the left main, 30-40% stenosis of the proximal LAD and RCA dominant with mild to moderate atherosclerosis. He was admitted on 02/26/18 with altered mental status from [facility] and rehab [facility]. Per the records, EMS arrived and found the patient to have a heart rate in the 30's with a stable blood pressure, atropine was given and his heart increased into the 40's. Patient was transported to [facility] for further evaluation. He was intubated later that day due to worsening respiratory status and worsening mental status. Currently, he is in a 3-1 atrial flutter with controlled ventricular response in the 80's. He denies any CP, pressure, palpitations,dizziness or edema. He does complain of shortness of breath and is on Bipap. Review of Systems All other systems reviewed negative except as stated in HPI PMFSH - History History Provided By: Medical Record - Medical History Medical History: Medical History (Last Reviewed 03/08/18 @ 13:44 by Jesusita Gamez) Acute kidney failure Clostridium difficile carrier Diarrhea - Surgical History Surgical History: Surgical History (Last Reviewed 03/08/18 @ 13:44 by Jesusita Gamez) History of cardiac catheterization History of tonsillectomy and adenoidectomy Status post left foot surgery - Family History Family History: Family History (Last Reviewed 03/03/18 @ 14:46 by Margie Mosqueda) Other Family history of coronary artery disease Family history of stroke - Tobacco History Second Hand Smoke Exposure: No Tobacco Use In Past 30 Days: No Smoking Status: Never smoker - Alcohol History How Often Do You Have a Drink Containing Alcohol: Never - Substance Use History Substance History: No History of Abuse - Travel History Recent Travel in the [place] Within the Last 8 Weeks: No Recent Travel Out of the Country Within the Last 8 Weeks: No - Immunization History Tetanus Immunization: Unable to Assess Hx Influenza Vaccine This Season: No Medications and Allergies Allergies Allergy/AdvReac Type Severity Reaction Status Date / Time daptomycin Allergy Severe Unverified 11/02/16 23:29 Sulfa (Sulfonamide Allergy Mild RASH Unverified 11/02/16 23:29 Antibiotics) Home Medications Medication Instructions Recorded Confirmed Type Lactobacillus acidophilus 1 tab PO BID 02/26/18 02/26/18 History [Acidophilus] alfuzosin 10 mg PO DAILY 02/26/18 02/26/18 History amino acids-protein hydrolys 30 ml PO DAILY 02/26/18 02/26/18 History [Pro-Stat Sugar Free] amiodarone 200 mg PO DAILY 02/26/18 02/26/18 History amlodipine 5 mg PO DAILY 02/26/18 02/26/18 History ascorbic acid (vitamin C) [Vitamin 500 mg PO BID 02/26/18 02/26/18 History C] atorvastatin 20 mg PO HS 02/26/18 02/26/18 History bisacodyl [Dulcolax (bisacodyl)] 10 mg OR DAILY PRN 02/26/18 02/26/18 History duloxetine [Cymbalta] 20 mg PO DAILY 02/26/18 02/26/18 History furosemide [Lasix] 20 mg PO BID 02/26/18 02/26/18 History gabapentin 600 mg PO TID 02/26/18 02/26/18 History insulin lispro [Humalog U-100 2 - 10 unit SUBCUT ACHS 02/26/18 02/26/18 History Insulin] levothyroxine 50 mcg PO DAILY 02/26/18 02/26/18 History magnesium hydroxide [Milk of 30 ml PO DIRECTED PRN 02/26/18 02/26/18 History Magnesia] memantine [Namenda] 5 mg PO QPM 02/26/18 02/26/18 History metoprolol tartrate 25 mg PO BID 02/26/18 02/26/18 History morphine [MS Contin] 15 mg PO Q12H 02/26/18 02/26/18 History multivitamin [Tab-A-Lucille] 1 tab PO DAILY 02/26/18 02/26/18 History olmesartan 20 mg PO DAILY 02/26/18 02/26/18 History ondansetron HCl [Zofran] 4 mg PO Q8H PRN 02/26/18 02/26/18 History ondansetron [Zofran ODT] 4 mg PO Q6H PRN 02/26/18 02/26/18 History rivaroxaban [Xarelto] 20 mg PO QPM 02/26/18 02/26/18 History sennosides-docusate sodium 2 tab PO BID PRN 02/26/18 02/26/18 History sodium phosphates [Fleet Enema] 118 ml OR DIRECTED PRN 02/26/18 02/26/18 History zinc sulfate 220 mg PO DAILY 02/26/18 02/26/18 History Active Medications: Active Medications Acetaminophen (Tylenol) 650 mg PO Q6H PRN PRN Reason: FEVER Last Admin: 03/04/18 17:51 Dose: 650 mg Acetaminophen (Tylenol) 650 mg PO UNSCH PRN PRN Reason: SEE LABEL COMMENTS Hydrocodone Bitart/Acetaminophen (Victor 5/325) 1 tab PO Q4H PRN PRN Reason: Pain 1 through 5 Last Admin: 03/05/18 05:07 Dose: 1 tab Al Hydroxide/Mg Hydroxide (Milk Of Freda Arriaga) 30 ml PO Q12H PRN PRN Reason: Mild Constipation Albuterol (Albuterol Neb (Prn)) 2.5 mg NEB Q2HR NEB PRN PRN Reason: SHORTNESS OF BREATH/WHEEZING Amiodarone HCl (Cordarone) 200 mg PO DAILY [facility] Last Admin: 03/08/18 08:12 Dose: 200 mg Artificial Tears (Tears Naturale Opth Drops) 1 drop EACH EYE Q8H [facility] Last Admin: 03/08/18 06:17 Dose: Not Given Ascorbic Acid (Vitamin C) 500 mg PO BID [facility] Last Admin: 03/08/18 08:11 Dose: 500 mg Atorvastatin Calcium (Lipitor) 20 mg PO HS [facility] Last Admin: 03/07/18 21:06 Dose: 20 mg Bisacodyl (Dulcolax Supp) 10 mg RECTAL DAILY PRN PRN Reason: SEVERE CONSITIPATION Chlorhexidine Gluconate (Peridex 0.12% Oral Kit) 15 ml OROPHARYNG BID@0800, 2000 [facility] Last Admin: 03/08/18 08:12 Dose: 15 ml Clonidine HCl (Catapres) 0.1 mg PO UNSCH PRN PRN Reason: SEE LABEL COMMENTS Diphenhydramine HCl (Benadryl) 25 mg PO UNSCH PRN PRN Reason: SEE LABEL COMMENTS Last Admin: 03/04/18 21:52 Dose: 25 mg Duloxetine HCl (Cymbalta) 20 mg PO DAILY [facility] Last Admin: 03/08/18 08:12 Dose: 20 mg Gabapentin (Neurontin) 200 mg PO BID [facility] Last Admin: 03/08/18 08:12 Dose: 200 mg Gelatin (Gelfoam 12 Mm/7 Mm Topical) 1 foam TOPICAL PRN PRN PRN Reason: help stop bleeding from site Last Admin: 03/05/18 05:08 Dose: 1 foam Gentamicin Sulfate (Gentamicin Inj) 20 mg OTHER WITH DIALYSIS PRN PRN Reason: Dwell Gentamycin Lock Last Admin: 03/03/18 09:16 Dose: 20 mg Heparin Sodium (Porcine) (Heparin Inj) 1,000 units OTHER WITH DIALYSIS PRN PRN Reason: Dwell Heparin to Fill Catheter Last Admin: 03/03/18 09:15 Dose: 1,000 units Heparin Sodium (Porcine) (Heparin Inj) 8,000 units OTHER WITH DIALYSIS PRN PRN Reason: for machine prime Hydralazine HCl (Apresoline Inj) 10 mg IV.PUSH Q1H PRN PRN Reason: SYS BP GREATER THAN 170 MMHG Piperacillin/Tazobactam/Dextrose (Zosyn 2.25 Gm Premix) 50 mls @ 100 mls/hr IV.SIG Q8H [facility] Last Infusion: 03/08/18 06:07 Dose: Infused Propofol (Diprivan 1000 Mg/100 Ml Inj) 1,000 mg in 100 mls @ 5.171 mls/hr IV.CONT TITRATE PRN; Protocol PRN Reason: Per Protocol Albumin Human (Flexbumin 25% Inj) 100 mls @ 60 mls/hr IV.SIG WITH DIALYSIS PRN PRN Reason: hypotension / volume replace Last Infusion: 03/04/18 07:00 Dose: Infused Sodium Chloride (Ns Inj) 1,000 mls @ 0 mls/hr OTHER .Q0M PRN PRN Reason: for prime and rinse back Sodium Chloride (Ns Inj) 1,000 mls @ 200 mls/hr OTHER .Q5H PRN PRN Reason: for dialyzer flush PRN Sodium Chloride (Ns Inj) 1,000 mls @ 0 mls/hr IV.CONT .Q0M PRN PRN Reason: hypotension / volume replace Heparin Sodium/Dextrose (Heparin/D5w 25,000 U/250 Ml) 25,000 unit in 250 mls @ 0 mls/hr IV.CONT TITRATE PRN; Protocol PRN Reason: Per Protocol Last Admin: 03/08/18 00:25 Dose: 1,800 units/hr, 18 mls/hr Furosemide 100 mg/ Sodium (Chloride) 100 mls @ 10 mls/hr IV.CONT .Q10H [facility] Last Admin: 03/08/18 05:25 Dose: 10 mls/hr Lactulose (Lactulose Liq) 30 ml PO DAILY PRN PRN Reason: SEVERE CONSITIPATION Levothyroxine Sodium (Synthroid) 50 mcg PO DAILY@0600 [facility] Last Admin: 03/08/18 05:38 Dose: 50 mcg Mannitol (Mannitol Inj) 12.5 gm IV.PUSH UNSCH PRN PRN Reason: hypotension / volume replace Memantine (Namenda) 5 mg PO QPM [facility] Last Admin: 03/07/18 18:31 Dose: 5 mg Miscellaneous Medication () 1 each OROPHARYNG 0000,0400,1200,1600 [facility] Last Admin: 03/08/18 11:15 Dose: 1 each Morphine Sulfate (Morphine Inj) 2 mg IV.PUSH Q3H PRN PRN Reason: Pain 6 through 10 Last Admin: 03/08/18 08:13 Dose: 2 mg Multivitamins (Theragran) 1 tab PO DAILY [facility] Last Admin: 03/08/18 08:11 Dose: 1 tab Nitroglycerin (Nitro-Bid 2% Oint) 2 inch TOPICAL Q6HR PRN PRN Reason: SYS BP GREATER THAN 170 MMHG Nitroglycerin (Nitrostat Sl) 0.4 mg SL Q5M PRN PRN Reason: CHEST PAIN Nystatin (Mycostatin Powder) 1 applicatio TOPICAL BID [facility] Last Admin: 03/08/18 08:19 Dose: 1 applicatio Ondansetron HCl (Zofran Inj) 4 mg IV.PUSH Q6H PRN PRN Reason: NAUSEA OR VOMITING Ondansetron HCl (Zofran Inj) 4 mg IV.PUSH UNSCH PRN PRN Reason: NAUSEA OR VOMITING Pantoprazole Sodium (Protonix) 40 mg PO DAILY [facility] Last Admin: 03/08/18 08:11 Dose: 40 mg Potassium Bicarb/Potassium Chloride (K-Lyte Cl Eff) 25 meq PO BID [facility] Last Admin: 03/08/18 08:19 Dose: 25 meq Senna/Docusate Sodium (Kim-Colace) 1 tab PO BID [facility] Last Admin: 03/08/18 08:11 Dose: 1 tab Sennosides (Senokot) 17.2 mg PO Q12H PRN PRN Reason: Moderate Constipation Sodium Chloride (Ns Flush) 2 ml IV.FLUSH BID [facility] Last Admin: 03/08/18 08:14 Dose: 2 ml Sodium Chloride (Ns Flush) 2 ml IV.FLUSH PRN PRN PRN Reason: FLUSH AFTER USING IV ACCESS Sodium Chloride (Ns Flush) 0 ml IV.FLUSH DAILY [facility] Last Admin: 03/08/18 08:19 Dose: Not Given Sodium Chloride (Ns Flush) 0 ml IV.FLUSH PRN PRN PRN Reason: FLUSH AFTER USING IV ACCESS Sodium Chloride (Ns Flush) 5 ml IV.FLUSH PRN PRN PRN Reason: flush each lumen during HD Tamsulosin HCl (Flomax) 0.4 mg PO DAILY [facility] Last Admin: 03/08/18 08:11 Dose: 0.4 mg Zinc Sulfate (Zinc-220) 220 mg PO DAILY [facility] Last Admin: 03/08/18 08:12 Dose: 220 mg Exam Vital signs: Vital Signs 03/07/18 14:00 03/07/18 16:00 03/07/18 16:16 Temperature 98.5 F Pulse Rate 94 H 98 H 94 H Respiratory Rate 27 H 27 H Blood Pressure 109/53 L 153/60 H Pulse Oximetry 98 99 03/07/18 16:31 03/07/18 16:45 03/07/18 17:00 Temperature Pulse Rate 92 H 95 H 92 H Respiratory Rate 26 H 27 H 27 H Blood Pressure 140/60 118/53 L 123/59 L Pulse Oximetry 100 99 100 03/07/18 17:15 03/07/18 17:30 03/07/18 17:45 Temperature Pulse Rate 92 H 90 90 Respiratory Rate 25 H 25 H 30 H Blood Pressure 122/66 122/53 L 112/57 L Pulse Oximetry 98 100 99 03/07/18 18:00 03/07/18 18:15 03/07/18 18:30 Temperature Pulse Rate 91 H 96 H 92 H Respiratory Rate 33 H 35 H 32 H Blood Pressure 118/57 L 107/51 L 113/49 L Pulse Oximetry 99 99 98 03/07/18 18:45 03/07/18 19:00 03/07/18 19:15 Temperature Pulse Rate 92 H 95 H 92 H Respiratory Rate 25 H 18 28 H Blood Pressure 117/55 L 129/51 L Pulse Oximetry 99 97 100 03/07/18 19:30 03/07/18 19:45 03/07/18 20:00 Temperature Pulse Rate 93 H 94 H 95 H Respiratory Rate 28 H 34 H 28 H Blood Pressure 133/56 L 130/60 116/79 Pulse Oximetry 98 97 99 03/07/18 20:07 03/07/18 20:16 03/07/18 20:30 Temperature Pulse Rate 94 H 92 H Respiratory Rate 27 H 27 H Blood Pressure 149/62 H 127/58 L Pulse Oximetry 100 99 99 03/07/18 20:45 03/07/18 21:00 03/07/18 21:30 Temperature Pulse Rate 93 H 92 H 94 H Respiratory Rate 30 H 24 26 H Blood Pressure 139/57 L 124/56 L 99/60 L Pulse Oximetry 99 99 100 03/07/18 21:45 03/07/18 22:00 03/07/18 22:15 Temperature Pulse Rate 94 H 94 H 96 H Respiratory Rate 25 H 27 H 26 H Blood Pressure 103/55 L 121/59 L 116/69 Pulse Oximetry 99 99 100 03/07/18 22:30 03/07/18 22:45 03/07/18 23:00 Temperature Pulse Rate 95 H 96 H 95 H Respiratory Rate 31 H 26 H 33 H Blood Pressure 119/66 124/60 134/58 L Pulse Oximetry 99 97 99 03/07/18 23:15 03/07/18 23:32 03/07/18 23:45 Temperature Pulse Rate 95 H 96 H 93 H Respiratory Rate 31 H 26 H 28 H Blood Pressure 99/51 L 153/61 H 159/67 H Pulse Oximetry 97 98 100 03/08/18 00:00 03/08/18 00:15 03/08/18 00:31 Temperature Pulse Rate 96 H 94 H 98 H Respiratory Rate 25 H 26 H 31 H Blood Pressure 156/58 H 144/75 H 182/107 H Pulse Oximetry 99 99 94 L 03/08/18 00:40 03/08/18 00:41 03/08/18 00:46 Temperature Pulse Rate 102 H 102 H Respiratory Rate 37 H 34 H Blood Pressure 165/65 H 174/67 H Pulse Oximetry 94 L 99 84 L 03/08/18 01:04 03/08/18 01:16 03/08/18 01:30 Temperature Pulse Rate 95 H 92 H 95 H Respiratory Rate 24 27 H 34 H Blood Pressure 174/91 H 154/62 H 164/76 H Pulse Oximetry 100 98 99 03/08/18 01:45 03/08/18 02:00 03/08/18 02:15 Temperature Pulse Rate 98 H 100 H 93 H Respiratory Rate 34 H 35 H 36 H Blood Pressure 162/82 H 169/68 H 143/58 H Pulse Oximetry 85 L 95 97 03/08/18 02:30 03/08/18 02:45 03/08/18 03:00 Temperature Pulse Rate 93 H 93 H 92 H Respiratory Rate 34 H 55 H 27 H Blood Pressure 143/64 H 155/71 H 153/60 H Pulse Oximetry 97 96 97 03/08/18 03:15 03/08/18 03:30 03/08/18 03:46 Temperature Pulse Rate 92 H 92 H 96 H Respiratory Rate 38 H 29 H 26 H Blood Pressure 157/70 H 163/69 H 184/71 H Pulse Oximetry 97 98 96 03/08/18 03:47 03/08/18 03:50 03/08/18 04:00 Temperature Pulse Rate 96 H 93 H 93 H Respiratory Rate 46 H 35 H 24 Blood Pressure 189/77 H 169/71 H 179/73 H Pulse Oximetry 95 89 L 98 03/08/18 04:16 03/08/18 04:17 03/08/18 04:19 Temperature Pulse Rate 92 H 92 H 91 H Respiratory Rate 22 22 22 Blood Pressure 169/133 H 191/75 H 174/71 H Pulse Oximetry 98 98 98 03/08/18 04:31 03/08/18 04:43 03/08/18 04:44 Temperature Pulse Rate 93 H Respiratory Rate 24 Blood Pressure 170/65 H Pulse Oximetry 97 98 97 03/08/18 04:46 03/08/18 04:47 03/08/18 08:00 Temperature 98.5 F Pulse Rate 94 H 91 H 99 H Respiratory Rate 27 H 30 H 26 H Blood Pressure 184/72 H 181/100 H 147/62 H Pulse Oximetry 97 97 96 03/08/18 08:05 03/08/18 10:00 03/08/18 11:42 Temperature Pulse Rate 94 H Respiratory Rate Blood Pressure Pulse Oximetry 95 97 03/08/18 12:00 Temperature Pulse Rate Respiratory Rate 22 Blood Pressure Pulse Oximetry Intake & Output 03/07/18 03/08/18 03/08/18 18:59 06:59 18:59 Intake Total 260 / 260 850 / 850 Output Total 600 / 600 700 / 700 Balance -340 / -340 150 / 150 Weight 162 kg Intake: IV 200 / 200 550 / 550 Lasix Inj 100 MG In NS Inj 90 200 / 200 ML @ 10 mls/hr IV.CONT .Q10H [facility] Rx#:[id number] Heparin/D5W 25,000 U/250 mL 25, 250 / 250 000 unit In 250 ml @ Per Protocol IV.CONT TITRATE PRN Rx #:[id number] Flexbumin 25% Inj 100 ML @ 60 100 / 100 mls/hr IV.SIG ONCE ONE Rx#: [id number] Zosyn 2.25 GM Premix 50 ML @ 100 / 100 100 / 100 100 mls/hr IV.SIG Q8H [facility] Rx#: [id number] Oral 60 / 60 300 / 300 Output: Urine Amount (Catheter) 600 / 600 700 / 700 Indwelling Urethral Catheter 600 / 600 700 / 700 Other: Date of Last Bowel Movement 03/05/18 03/07/18 03/07/18 # Bowel Movements 1 # Incontinent Bowel Movements 1 2 - Constitutional mild distress - Routine HEENT Exam Head: Present: normocephalic Eye: Present: PERRL ENT: Present: mucous membranes moist - Routine Neck Exam Present: supple - Routine Respiratory Exam Present: distant breath sounds, diminished air movement Comments: Non-invasive ventilation - Bipap - Routine Cardiovascular Exam Present: S1, S2, irregular rhythm Comments: 3-1 atrial flutter - Routine Abdominal Exam Present: normoactive bowel sounds - Routine Extremities Exam Present: edema, full ROM, pulses intact, normal capillary refill. Absent: cyanosis, clubbing Comments: trace edema LE's. - Routine Skin Exam Present: intact, wounds - Routine Neurological Exam Present: alert, moving all extremities Results 03/08/18 03:14 03/08/18 03:14 Cardiac Enzymes 03/07/18 Range/Units 06:51 B-Natriuretic Peptide 1811 H (0-100) pg/mL Coagulation 03/07/18 03/07/18 Range/Units 06:51 08:09 APTT 49.5 H (23.4-31.7) sec B-Natriuretic Peptide 1811 H (0-100) pg/mL CBC 03/07/18 03/08/18 Range/Units 06:51 03:14 WBC 12.2 H 16.1 H (4.0-11.0) th/mm3 RBC 3.43 L 3.18 L (4.50-5.90) mil/mm3 Hgb 9.7 L 9.0 L (13.0-17.0) gm/dL Hct 29.9 L 27.3 L (39.0-51.0) % Plt Count 205 194 (150-450) th/mm3 Neut # (Auto) 10.1 H 14.0 H (1.8-7.7) th/mm3 Lymph # (Auto) 1.0 0.9 L (1.0-4.8) th/mm3 [place] # (Auto) 0.6 1.0 H (0.0-0.9) th/mm3 Eos # (Auto) 0.4 0.2 (0.0-0.4) th/mm3 Baso # (Auto) 0.0 0.1 (0.0-0.2) th/mm3 Comprehensive Metabolic Panel 03/07/18 03/08/18 Range/Units 06:51 03:14 Sodium 139 137 (136-145) meq/L Potassium 3.2 L 3.5 (3.5-5.1) meq/L Chloride 101 101 (98-107) meq/L Carbon Dioxide 27.8 26.0 (21.0-32.0) meq/L BUN 17 17 (7-18) mg/dL Creatinine 2.62 H 2.71 H (0.60-1.30) mg/dL Calcium 8.3 L 8.5 (8.5-10.1) mg/dL Intake and Output 03/07/18 03/08/18 03/08/18 22:59 06:59 14:59 Intake Total 260 / 260 700 / 700 Output Total 600 / 600 700 / 700 Balance -340 / -340 0 / 0 Intake: IV 200 / 200 400 / 400 Lasix Inj 100 MG In NS Inj 90 100 / 100 100 / 100 ML @ 10 mls/hr IV.CONT .Q10H [facility] Rx#:[id number] Heparin/D5W 25,000 U/250 mL 25, 250 / 250 000 unit In 250 ml @ Per Protocol IV.CONT TITRATE PRN Rx #:[id number] Zosyn 2.25 GM Premix 50 ML @ 100 / 100 50 / 50 100 mls/hr IV.SIG Q8H [facility] Rx#: [id number] Oral 60 / 60 300 / 300 Output: Urine Amount (Catheter) 600 / 600 700 / 700 Indwelling Urethral Catheter 600 / 600 700 / 700 Other: Date of Last Bowel Movement 03/07/18 03/07/18 03/07/18 # Bowel Movements 1 # Incontinent Bowel Movements 1 2 Weight 162 kg - Imaging and Cardiology Imaging: Impressions Chest X-Ray 03/07/18 00:00 CONCLUSION: 1. Cardiomegaly with persistent pulmonary edema pattern. 2. Moderate bilateral pleural effusions with associated airspace disease in the lower lobes bilaterally. Assessment and Plan - Assessment (1) CHF (congestive heart failure) Code(s): I50.9 - Heart failure, unspecified Status: Acute (2) Atrial flutter Code(s): I48.92 - Unspecified atrial flutter Status: Acute (3) Obstructive sleep apnea Code(s): G47.33 - Obstructive sleep apnea (adult) (pediatric) Status: Chronic (4) BMI 50.0-59.9, adult Code(s): Z68.43 - Body mass index (BMI) 50-59.9, adult Status: Chronic (5) Coronary artery disease Code(s): I25.10 - Atherosclerotic heart disease of [place] coronary artery without angina pectoris Status: Chronic (6) 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 Code(s): E11.9 - Type 2 diabetes mellitus without complications Status: Chronic (7) History of essential hypertension Code(s): Z86.79 - Personal history of other diseases of the circulatory system Status: Chronic (8) Hyperlipidemia Code(s): E78.5 - Hyperlipidemia, unspecified Status: Chronic (9) Chronic kidney disease Code(s): N18.9 - Chronic kidney disease, unspecified Status: Acute (10) Depression Code(s): F32.9 - Major depressive disorder, single episode, unspecified Status : Chronic - Plan Patient is currently in atrial flutter with controlled ventricular response, we will continue amiodarone 200mg PO. Patient is currently on a Heparin gtt for anticoagulation, recommend switching to Eliquis 2.5mg PO BID. No plans on cardioversion due to chronic atrial fibrillation/flutter. Patient has chronic kidney disease, nephrology evaluation in progress. Patient has AMS, neurology evaluation in progress. Patient currently on Bipap due to respiratory distress, pulmonology evaluation in progress. We will continue to monitor patient during hospitalization. 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 Booth, after discharge from the hospital. The patient was seen and evaluated by Dr. Hall who participated in care, management and decision making. - Attending Attestation Patient seen and examined. I reviewed and agree with the evaluation and plan as presented. Continue rate control for atrial flutter. Switch heparin to NOAC renal adjusted dose. Continue ICU care. Increase activity, PT. Procedures - Arterial Line Size (Gauge): 20 (5) Coronary artery disease Qualifiers: Coronary Disease-Associated Artery/Lesion type: unspecified vessel or lesion type [place] vs. transplanted heart: [place] heart Associated angina: without angina Qualified Code(s): I25.10 - Atherosclerotic heart disease of [place] coronary artery without angina pectoris (6) 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 Qualifiers: 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 type: type 2 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 termite treater helper insulin use: with termite treater helper use 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 complication status: with kidney complications 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 complication detail: with other kidney complication Qualified Code(s): E11.29 - Type 2 diabetes mellitus with other diabetic kidney complication; Z79.4 - rn long term care (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 (8) Hyperlipidemia Qualifiers: Hyperlipidemia type: unspecified Qualified Code(s): E78.5 - Hyperlipidemia, unspecified (10) Depression Qualifiers: Depression Type: major depressive disorder Major depression recurrence: recurrent Active/Remission status: remission status unspecified Qualified Code (s): F33.9 - Major depressive disorder, recurrent, unspecified
--- NOTE | 2018-03-08 16:04 | P.PN ---
Subjective Interval history: sandra nad mildly tachypneic o2 sat 100% Physical Exam Vital signs: Vital Signs 03/07/18 16:16 18 16:31 03/07/18 16:45 Temperature Pulse Rate 94 H 92 H 95 H Respiratory Rate 27 H 26 H 27 H Blood Pressure 153/60 H 140/60 118/53 L Pulse Oximetry 99 100 99 03/07/18 17:00 03/07/18 17:15 03/07/18 17:30 Temperature Pulse Rate 92 H 92 H 90 Respiratory Rate 27 H 25 H 25 H Blood Pressure 123/59 L 122/66 122/53 L Pulse Oximetry 100 98 100 03/07/18 17:45 03/07/18 18:00 03/07/18 18:15 Temperature Pulse Rate 90 91 H 96 H Respiratory Rate 30 H 33 H 35 H Blood Pressure 112/57 L 118/57 L 107/51 L Pulse Oximetry 99 99 99 03/07/18 18:30 03/07/18 18:45 03/07/18 19:00 Temperature Pulse Rate 92 H 92 H 95 H Respiratory Rate 32 H 25 H 18 Blood Pressure 113/49 L 117/55 L Pulse Oximetry 98 99 97 03/07/18 19:15 03/07/18 19:30 03/07/18 19:45 Temperature Pulse Rate 92 H 93 H 94 H Respiratory Rate 28 H 28 H 34 H Blood Pressure 129/51 L 133/56 L 130/60 Pulse Oximetry 100 98 97 03/07/18 20:00 03/07/18 20:07 03/07/18 20:16 Temperature Pulse Rate 95 H 94 H Respiratory Rate 28 H 27 H Blood Pressure 116/79 149/62 H Pulse Oximetry 99 100 99 03/07/18 20:30 03/07/18 20:45 03/07/18 21:00 Temperature Pulse Rate 92 H 93 H 92 H Respiratory Rate 27 H 30 H 24 Blood Pressure 127/58 L 139/57 L 124/56 L Pulse Oximetry 99 99 99 03/07/18 21:30 18 21:45 03/07/18 22:00 Temperature Pulse Rate 94 H 94 H 94 H Respiratory Rate 26 H 25 H 27 H Blood Pressure 99/60 L 103/55 L 121/59 L Pulse Oximetry 100 99 99 03/07/18 22:15 03/07/18 22:30 03/07/18 22:45 Temperature Pulse Rate 96 H 95 H 96 H Respiratory Rate 26 H 31 H 26 H Blood Pressure 116/69 119/66 124/60 Pulse Oximetry 100 99 97 03/07/18 23:00 03/07/18 23:15 03/07/18 23:32 Temperature Pulse Rate 95 H 95 H 96 H Respiratory Rate 33 H 31 H 26 H Blood Pressure 134/58 L 99/51 L 153/61 H Pulse Oximetry 99 97 98 03/07/18 23:45 03/08/18 00:00 03/08/18 00:15 Temperature Pulse Rate 93 H 96 H 94 H Respiratory Rate 28 H 25 H 26 H Blood Pressure 159/67 H 156/58 H 144/75 H Pulse Oximetry 100 99 99 03/08/18 00:31 03/08/18 00:40 03/08/18 00:41 Temperature Pulse Rate 98 H 102 H Respiratory Rate 31 H 37 H Blood Pressure 182/107 H 165/65 H Pulse Oximetry 94 L 94 L 99 03/08/18 00:46 03/08/18 01:04 03/08/18 01:16 Temperature Pulse Rate 102 H 95 H 92 H Respiratory Rate 34 H 24 27 H Blood Pressure 174/67 H 174/91 H 154/62 H Pulse Oximetry 84 L 100 98 03/08/18 01:30 03/08/18 01:45 03/08/18 02:00 Temperature Pulse Rate 95 H 98 H 100 H Respiratory Rate 34 H 34 H 35 H Blood Pressure 164/76 H 162/82 H 169/68 H Pulse Oximetry 99 85 L 95 03/08/18 02:15 03/08/18 02:30 03/08/18 02:45 Temperature Pulse Rate 93 H 93 H 93 H Respiratory Rate 36 H 34 H 55 H Blood Pressure 143/58 H 143/64 H 155/71 H Pulse Oximetry 97 97 96 03/08/18 03:00 03/08/18 03:15 03/08/18 03:30 Temperature Pulse Rate 92 H 92 H 92 H Respiratory Rate 27 H 38 H 29 H Blood Pressure 153/60 H 157/70 H 163/69 H Pulse Oximetry 97 97 98 03/08/18 03:46 03/08/18 03:47 03/08/18 03:50 Temperature Pulse Rate 96 H 96 H 93 H Respiratory Rate 26 H 46 H 35 H Blood Pressure 184/71 H 189/77 H 169/71 H Pulse Oximetry 96 95 89 L 03/08/18 04:00 03/08/18 04:16 03/08/18 04:17 Temperature Pulse Rate 93 H 92 H 92 H Respiratory Rate 24 22 22 Blood Pressure 179/73 H 169/133 H 191/75 H Pulse Oximetry 98 98 98 03/08/18 04:19 03/08/18 04:31 03/08/18 04:43 Temperature Pulse Rate 91 H 93 H Respiratory Rate 22 24 Blood Pressure 174/71 H 170/65 H Pulse Oximetry 98 97 98 03/08/18 04:44 03/08/18 04:46 03/08/18 04:47 Temperature Pulse Rate 94 H 91 H Respiratory Rate 27 H 30 H Blood Pressure 184/72 H 181/100 H Pulse Oximetry 97 97 97 03/08/18 08:00 03/08/18 08:05 03/08/18 10:00 Temperature 98.5 F Pulse Rate 99 H 94 H Respiratory Rate 26 H Blood Pressure 147/62 H Pulse Oximetry 96 95 03/08/18 11:42 03/08/18 12:00 Temperature Pulse Rate Respiratory Rate 22 Blood Pressure Pulse Oximetry 97 Intake & Output 03/07/18 03/08/18 03/08/18 18:59 06:59 18:59 Intake Total 260 / 260 850 / 850 350 / 350 Output Total 600 / 600 700 / 700 Balance -340 / -340 150 / 150 350 / 350 Weight 162 kg Intake: IV 200 / 200 550 / 550 350 / 350 Lasix Inj 100 MG In NS Inj 90 200 / 200 100 / 100 ML @ 10 mls/hr IV.CONT .Q10H [facility] Rx#:[id number] Heparin/D5W 25,000 U/250 mL 25, 250 / 250 250 / 250 000 unit In 250 ml @ Per Protocol IV.CONT TITRATE PRN Rx #:[id number] Flexbumin 25% Inj 100 ML @ 60 100 / 100 mls/hr IV.SIG ONCE ONE Rx#: [id number] Zosyn 2.25 GM Premix 50 ML @ 100 / 100 100 / 100 100 mls/hr IV.SIG Q8H [facility] Rx#: [id number] Oral 60 / 60 300 / 300 Output: Urine Amount (Catheter) 600 / 600 700 / 700 Indwelling Urethral Catheter 600 / 600 700 / 700 Other: Date of Last Bowel Movement 03/05/18 03/07/18 03/07/18 # Bowel Movements 1 # Incontinent Bowel Movements 1 2 Narrative: GENERAL: 72-year-old obese male currently on biapa, with sob. SKIN: Warm and dry. Chronic venous stasis bilateral lower extremities CARDIOVASCULAR: Regular rate and rhythm. S1, S2 no S4. RESPIRATORY: Decreased breath sounds. SOB. GASTROINTESTINAL: Abdomen soft, non-tender, obese with large pannus. MUSCULOSKELETAL: Extremities with trace to 1+ bilateral lower extremity edema. NEUROLOGICAL: Moves all 4 extremity spontaneously. Strength slightly weaker in the lower extremities. - Urinary Catheter Management Indwelling Urethral Catheter Cath placed during this visit: yes, but has since been removed by the nurse Reason for continuing: Chronic Urinary Retention Insertion date: 02/26/18 Insertion time: 16:00 Removal date: 02/26/18 Removal time: 15:30 Results - Labs CBC & Chem 7: 03/08/18 03:14 03/08/18 03:14 Laboratory Results - last 24 hr 03/07/18 03/07/18 03/07/18 06:51 17:15 18:13 WBC RBC Hgb Hct MCV MCH MCHC RDW Plt Count MPV Neut % (Auto) Lymph % (Auto) [place] % (Auto) Eos % (Auto) Baso % (Auto) Neut # (Auto) Lymph # (Auto) [place] # (Auto) Eos # (Auto) Baso # (Auto) WBC Differential Differential Comment Puncture Site Right radial Patient Temperature 98.6 O2 Saturation 93 ABG pH 7.42 ABG pCO2 42 ABG pO2 79 ABG HCO3 27 H ABG O2 Content 12.6 ABG Base Excess 2.4 H ABG Methemoglobin 1.5 [place] Test Present Hemoglobin 9.5 L Carboxyhemoglobin 1.4 O2 Delivery Device Bipap 14ipap/5epap Inspired O2 40 Critical Value No Sodium Potassium Chloride Carbon Dioxide Anion Gap BUN Creatinine Estimated GFR POC Glucose 174 H Random Glucose Calcium Magnesium B-Natriuretic Peptide 1811 H 03/08/18 03/08/18 03/08/18 02:05 03:14 03:14 WBC 16.1 H RBC 3.18 L Hgb 9.0 L Hct 27.3 L MCV 85.7 MCH 28.3 MCHC 33.1 RDW 14.5 Plt Count 194 MPV 8.5 Neut % (Auto) 86.9 H Lymph % (Auto) 5.5 L [place] % (Auto) 6.2 Eos % (Auto) 1.0 Baso % (Auto) 0.4 Neut # (Auto) 14.0 H Lymph # (Auto) 0.9 L [place] # (Auto) 1.0 H Eos # (Auto) 0.2 Baso # (Auto) 0.1 WBC Differential . Differential Comment Auto diff final Puncture Site Patient Temperature O2 Saturation ABG pH ABG pCO2 ABG pO2 ABG HCO3 ABG O2 Content ABG Base Excess ABG Methemoglobin [place] Test Hemoglobin Carboxyhemoglobin O2 Delivery Device Inspired O2 Critical Value Sodium 137 Potassium 3.5 Chloride 101 Carbon Dioxide 26.0 Anion Gap 10 BUN 17 Creatinine 2.71 H Estimated GFR 23 L POC Glucose 141 H Random Glucose 149 H Calcium 8.5 Magnesium 1.8 B-Natriuretic Peptide 03/08/18 14:05 WBC RBC Hgb Hct MCV MCH MCHC RDW Plt Count MPV Neut % (Auto) Lymph % (Auto) [place] % (Auto) Eos % (Auto) Baso % (Auto) Neut # (Auto) Lymph # (Auto) [place] # (Auto) Eos # (Auto) Baso # (Auto) WBC Differential Differential Comment Puncture Site Patient Temperature O2 Saturation ABG pH ABG pCO2 ABG pO2 ABG HCO3 ABG O2 Content ABG Base Excess ABG Methemoglobin [place] Test Hemoglobin Carboxyhemoglobin O2 Delivery Device Inspired O2 Critical Value Sodium Potassium Chloride Carbon Dioxide Anion Gap BUN Creatinine Estimated GFR POC Glucose 174 H Random Glucose Calcium Magnesium B-Natriuretic Peptide Assessment and Plan - Plan RESPIRATORY FAILURE RENAL FAILURE SEPSIS MIRTA/CSA PLAN O2 NEEDED ANTIBIOTICS BIPAP/SLEEP Procedures - Arterial Line Size (Gauge): 20
--- NOTE | 2018-03-08 17:36 | P.PNNP ---
Subjective Interval history: Sitting up in bed. Reports shortness of breath, on 4 liters NC. No nausea, vomiting, or diarrhea. Creatinine slightly increased at 2.7. On lasix gtt. <Hue Miller - Last Filed: 03/08/18 17:29> Physical Exam Vital signs: Vital Signs 03/07/18 17:45 03/07/18 18:00 03/07/18 18:15 Temperature Pulse Rate 90 91 H 96 H Respiratory Rate 30 H 33 H 35 H Blood Pressure 112/57 L 118/57 L 107/51 L Pulse Oximetry 99 99 99 03/07/18 18:30 03/07/18 18:45 03/07/18 19:00 Temperature Pulse Rate 92 H 92 H 95 H Respiratory Rate 32 H 25 H 18 Blood Pressure 113/49 L 117/55 L Pulse Oximetry 98 99 97 03/07/18 19:15 03/07/18 19:30 03/07/18 19:45 Temperature Pulse Rate 92 H 93 H 94 H Respiratory Rate 28 H 28 H 34 H Blood Pressure 129/51 L 133/56 L 130/60 Pulse Oximetry 100 98 97 03/07/18 20:00 03/07/18 20:07 03/07/18 20:16 Temperature Pulse Rate 95 H 94 H Respiratory Rate 28 H 27 H Blood Pressure 116/79 149/62 H Pulse Oximetry 99 100 99 03/07/18 20:30 03/07/18 20:45 03/07/18 21:00 Temperature Pulse Rate 92 H 93 H 92 H Respiratory Rate 27 H 30 H 24 Blood Pressure 127/58 L 139/57 L 124/56 L Pulse Oximetry 99 99 99 03/07/18 21:30 03/07/18 21:45 03/07/18 22:00 Temperature Pulse Rate 94 H 94 H 94 H Respiratory Rate 26 H 25 H 27 H Blood Pressure 99/60 L 103/55 L 121/59 L Pulse Oximetry 100 99 99 03/07/18 22:15 03/07/18 22:30 03/07/18 22:45 Temperature Pulse Rate 96 H 95 H 96 H Respiratory Rate 26 H 31 H 26 H Blood Pressure 116/69 119/66 124/60 Pulse Oximetry 100 99 97 03/07/18 23:00 03/07/18 23:15 03/07/18 23:32 Temperature Pulse Rate 95 H 95 H 96 H Respiratory Rate 33 H 31 H 26 H Blood Pressure 134/58 L 99/51 L 153/61 H Pulse Oximetry 99 97 98 03/07/18 23:45 03/08/18 00:00 03/08/18 00:15 Temperature Pulse Rate 93 H 96 H 94 H Respiratory Rate 28 H 25 H 26 H Blood Pressure 159/67 H 156/58 H 144/75 H Pulse Oximetry 100 99 99 03/08/18 00:31 03/08/18 00:40 03/08/18 00:41 Temperature Pulse Rate 98 H 102 H Respiratory Rate 31 H 37 H Blood Pressure 182/107 H 165/65 H Pulse Oximetry 94 L 94 L 99 03/08/18 00:46 03/08/18 01:04 03/08/18 01:16 Temperature Pulse Rate 102 H 95 H 92 H Respiratory Rate 34 H 24 27 H Blood Pressure 174/67 H 174/91 H 154/62 H Pulse Oximetry 84 L 100 98 03/08/18 01:30 03/08/18 01:45 03/08/18 02:00 Temperature Pulse Rate 95 H 98 H 100 H Respiratory Rate 34 H 34 H 35 H Blood Pressure 164/76 H 162/82 H 169/68 H Pulse Oximetry 99 85 L 95 03/08/18 02:15 03/08/18 02:30 03/08/18 02:45 Temperature Pulse Rate 93 H 93 H 93 H Respiratory Rate 36 H 34 H 55 H Blood Pressure 143/58 H 143/64 H 155/71 H Pulse Oximetry 97 97 96 03/08/18 03:00 03/08/18 03:15 03/08/18 03:30 Temperature Pulse Rate 92 H 92 H 92 H Respiratory Rate 27 H 38 H 29 H Blood Pressure 153/60 H 157/70 H 163/69 H Pulse Oximetry 97 97 98 03/08/18 03:46 03/08/18 03:47 03/08/18 03:50 Temperature Pulse Rate 96 H 96 H 93 H Respiratory Rate 26 H 46 H 35 H Blood Pressure 184/71 H 189/77 H 169/71 H Pulse Oximetry 96 95 89 L 03/08/18 04:00 03/08/18 04:16 03/08/18 04:17 Temperature Pulse Rate 93 H 92 H 92 H Respiratory Rate 24 22 22 Blood Pressure 179/73 H 169/133 H 191/75 H Pulse Oximetry 98 98 98 03/08/18 04:19 03/08/18 04:31 03/08/18 04:43 Temperature Pulse Rate 91 H 93 H Respiratory Rate 22 24 Blood Pressure 174/71 H 170/65 H Pulse Oximetry 98 97 98 03/08/18 04:44 03/08/18 04:46 03/08/18 04:47 Temperature Pulse Rate 94 H 91 H Respiratory Rate 27 H 30 H Blood Pressure 184/72 H 181/100 H Pulse Oximetry 97 97 97 03/08/18 08:00 03/08/18 08:05 03/08/18 10:00 Temperature 98.5 F Pulse Rate 99 H 94 H Respiratory Rate 26 H Blood Pressure 147/62 H Pulse Oximetry 96 95 03/08/18 11:42 03/08/18 12:00 03/08/18 14:00 Temperature 98.0 F Pulse Rate 90 87 Respiratory Rate 18 Blood Pressure 147/63 H Pulse Oximetry 97 96 03/08/18 16:00 Temperature 98.6 F Pulse Rate 91 H Respiratory Rate 26 H Blood Pressure 151/65 H Pulse Oximetry 100 Intake & Output 03/07/18 03/08/18 03/08/18 18:59 06:59 18:59 Intake Total 260 / 260 850 / 850 400 / 400 Output Total 600 / 600 700 / 700 Balance -340 / -340 150 / 150 400 / 400 Weight 162 kg Intake: IV 200 / 200 550 / 550 400 / 400 Lasix Inj 100 MG In NS Inj 90 200 / 200 100 / 100 ML @ 10 mls/hr IV.CONT .Q10H [facility] Rx#:[id number] Heparin/D5W 25,000 U/250 mL 25, 250 / 250 250 / 250 000 unit In 250 ml @ Per Protocol IV.CONT TITRATE PRN Rx #:[id number] Flexbumin 25% Inj 100 ML @ 60 100 / 100 mls/hr IV.SIG ONCE ONE Rx#: [id number] Zosyn 2.25 GM Premix 50 ML @ 100 / 100 100 / 100 50 / 50 100 mls/hr IV.SIG Q8H [facility] Rx#: [id number] Oral 60 / 60 300 / 300 Output: Urine Amount (Catheter) 600 / 600 700 / 700 Indwelling Urethral Catheter 600 / 600 700 / 700 Other: Date of Last Bowel Movement 03/05/18 03/07/18 03/07/18 # Bowel Movements 1 # Incontinent Bowel Movements 1 2 Narrative: GENERAL: Alert and oriented. NAD SKIN: Warm and dry. Chronic venous stasis bilateral lower extremities CARDIOVASCULAR: Regular rate and rhythm. S1, S2 no S4. RESPIRATORY: Decreased breath sounds. SOB. GASTROINTESTINAL: Abdomen soft, non-tender, obese with large pannus. MUSCULOSKELETAL: Extremities with trace to 1+ bilateral lower extremity edema. NEUROLOGICAL: Moves all 4 extremity spontaneously. Strength slightly weaker in the lower extremities. - Urinary Catheter Management Indwelling Urethral Catheter Cath placed during this visit: yes, but has since been removed by the nurse Reason for continuing: Chronic Urinary Retention Insertion date: 02/26/18 Insertion time: 16:00 Removal date: 02/26/18 Removal time: 15:30 <Hue Miller - Last Filed: 03/08/18 17:29> Vital signs: Vital Signs 03/07/18 22:30 03/07/18 22:45 03/07/18 23:00 Temperature Pulse Rate 95 H 96 H 95 H Respiratory Rate 31 H 26 H 33 H Blood Pressure 119/66 124/60 134/58 L Pulse Oximetry 99 97 99 03/07/18 23:15 03/07/18 23:32 03/07/18 23:45 Temperature Pulse Rate 95 H 96 H 93 H Respiratory Rate 31 H 26 H 28 H Blood Pressure 99/51 L 153/61 H 159/67 H Pulse Oximetry 97 98 100 03/08/18 00:00 03/08/18 00:15 03/08/18 00:31 Temperature Pulse Rate 96 H 94 H 98 H Respiratory Rate 25 H 26 H 31 H Blood Pressure 156/58 H 144/75 H 182/107 H Pulse Oximetry 99 99 94 L 03/08/18 00:40 03/08/18 00:41 03/08/18 00:46 Temperature Pulse Rate 102 H 102 H Respiratory Rate 37 H 34 H Blood Pressure 165/65 H 174/67 H Pulse Oximetry 94 L 99 84 L 03/08/18 01:04 03/08/18 01:16 03/08/18 01:30 Temperature Pulse Rate 95 H 92 H 95 H Respiratory Rate 24 27 H 34 H Blood Pressure 174/91 H 154/62 H 164/76 H Pulse Oximetry 100 98 99 03/08/18 01:45 03/08/18 02:00 03/08/18 02:15 Temperature Pulse Rate 98 H 100 H 93 H Respiratory Rate 34 H 35 H 36 H Blood Pressure 162/82 H 169/68 H 143/58 H Pulse Oximetry 85 L 95 97 03/08/18 02:30 03/08/18 02:45 03/08/18 03:00 Temperature Pulse Rate 93 H 93 H 92 H Respiratory Rate 34 H 55 H 27 H Blood Pressure 143/64 H 155/71 H 153/60 H Pulse Oximetry 97 96 97 03/08/18 03:15 03/08/18 03:30 03/08/18 03:46 Temperature Pulse Rate 92 H 92 H 96 H Respiratory Rate 38 H 29 H 26 H Blood Pressure 157/70 H 163/69 H 184/71 H Pulse Oximetry 97 98 96 03/08/18 03:47 03/08/18 03:50 03/08/18 04:00 Temperature Pulse Rate 96 H 93 H 93 H Respiratory Rate 46 H 35 H 24 Blood Pressure 189/77 H 169/71 H 179/73 H Pulse Oximetry 95 89 L 98 03/08/18 04:16 03/08/18 04:17 03/08/18 04:19 Temperature Pulse Rate 92 H 92 H 91 H Respiratory Rate 22 22 22 Blood Pressure 169/133 H 191/75 H 174/71 H Pulse Oximetry 98 98 98 03/08/18 04:31 03/08/18 04:43 03/08/18 04:44 Temperature Pulse Rate 93 H Respiratory Rate 24 Blood Pressure 170/65 H Pulse Oximetry 97 98 97 03/08/18 04:46 03/08/18 04:47 03/08/18 08:00 Temperature 98.5 F Pulse Rate 94 H 91 H 99 H Respiratory Rate 27 H 30 H 26 H Blood Pressure 184/72 H 181/100 H 147/62 H Pulse Oximetry 97 97 96 03/08/18 08:05 03/08/18 10:00 03/08/18 11:42 Temperature Pulse Rate 94 H Respiratory Rate Blood Pressure Pulse Oximetry 95 97 03/08/18 12:00 03/08/18 14:00 03/08/18 16:00 Temperature 98.0 F 98.6 F Pulse Rate 90 87 91 H Respiratory Rate 18 26 H Blood Pressure 147/63 H 151/65 H Pulse Oximetry 96 100 03/08/18 18:00 03/08/18 20:56 Temperature Pulse Rate 84 Respiratory Rate Blood Pressure Pulse Oximetry 98 Intake & Output 03/08/18 03/08/18 03/09/18 06:59 18:59 06:59 Intake Total 850 / 850 900 / 900 Output Total 700 / 700 950 / 950 Balance 150 / 150 -50 / -50 Weight 162 kg Intake: IV 550 / 550 400 / 400 Lasix Inj 100 MG In NS Inj 90 200 / 200 100 / 100 ML @ 10 mls/hr IV.CONT .Q10H [facility] Rx#:[id number] Heparin/D5W 25,000 U/250 mL 25, 250 / 250 250 / 250 000 unit In 250 ml @ Per Protocol IV.CONT TITRATE PRN Rx #:[id number] Zosyn 2.25 GM Premix 50 ML @ 100 / 100 50 / 50 100 mls/hr IV.SIG Q8H [facility] Rx#: [id number] Oral 300 / 300 500 / 500 Output: Urine Amount (Catheter) 700 / 700 950 / 950 Indwelling Urethral Catheter 700 / 700 950 / 950 Other: Date of Last Bowel Movement 03/07/18 03/07/18 # Incontinent Bowel Movements 2 - Urinary Catheter Management Indwelling Urethral Catheter Cath placed during this visit: no <Laura Brantley - Last Filed: 03/08/18 22:21> Assessment and Plan - Assessment (1) Acute renal failure Code(s): N17.9 - Acute kidney failure, unspecified Status: Acute (2) Chronic kidney disease Code(s): N18.9 - Chronic kidney disease, unspecified Status: Acute (3) Shock Code(s): R57.9 - Shock, unspecified Status: Acute (4) BMI 50.0-59.9, adult Code(s): Z68.43 - Body mass index (BMI) 50-59.9, adult Status: Chronic (5) 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 Code(s): E11.9 - Type 2 diabetes mellitus without complications Status: Chronic Qualifiers: 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 type: type 2 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 buttermaker helper insulin use: with care home use 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 complication status: with kidney complications 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 complication detail: with other kidney complication Qualified Code(s): E11.29 - Type 2 diabetes mellitus with other diabetic kidney complication; Z79.4 - nursing home (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 - Plan Acute kidney injury on chronic kidney disease Has received Hemodialysis, vas cath has been removed. Creatinine slightly increased at 2.7 but Continues to have shortness of breath and edema. UOP at 1.3 L/24 hours, indwelling Orozco catheter. Maintain strict I +O's. Recommend to continue Lasix and album gtts with fluid overload. Will continue to monitor urinary output and BMP. Avoid nephrotoxins. Labs in AM <Hue Miller - Last Filed: 03/08/18 17:29> - Assessment (1) Acute renal failure Code(s): N17.9 - Acute kidney failure, unspecified Status: Acute (2) Chronic kidney disease Code(s): N18.9 - Chronic kidney disease, unspecified Status: Acute (3) Shock Code(s): R57.9 - Shock, unspecified Status: Acute (4) BMI 50.0-59.9, adult Code(s): Z68.43 - Body mass index (BMI) 50-59.9, adult Status: Chronic (5) 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 Code(s): E11.9 - Type 2 diabetes mellitus without complications Status: Chronic Qualifiers: 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 type: type 2 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 buttermaker helper insulin use: with buttermaker helper use 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 complication status: with kidney complications 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 complication detail: with other kidney complication Qualified Code(s): E11.29 - Type 2 diabetes mellitus with other diabetic kidney complication; Z79.4 - nursing home (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 - Plan Patient seen and examined, agree with above. Patient with chronic kidney disease and PIERRE. Continue diuretics, and Creatinine is 2.6-2.7. <Laura Brantley - Last Filed: 03/08/18 22:21> Procedures - Arterial Line Size (Gauge): 20 <Hue Miller - Last Filed: 03/08/18 17:29>
[2018-03-09] MEDS: Oral Hygiene Kit OROPHARYNG SCH ×4 (00:49→16:58)
[2018-03-09] MEDS: Artificial Tears Opth Drops 15 ML Bottle EACH EYE SCH ×3 (00:49→15:49)
[2018-03-09] MEDS: Furosemide Inj 100 MG in Sodium Chlor 0.9% Inj 90 ML IV.CONT SCH ×2 (02:30→13:00)
[2018-03-09] MEDS: Levothyroxine 50 MCG Tablet PO SCH (05:29)
[2018-03-09] MEDS: Heparin Drip 25,000 UNIT/250 ML BAG IV.CONT PRN ×2 (05:30→20:29)
[2018-03-09] MEDS: Piperacil/Tazo 2.25 GM Premix 50 ML IV.SIG SCH ×3 (05:30→22:00)
[2018-03-09] MEDS: Senna/Docusate Sodium 8.6/50 MG Tablet PO SCH ×2 (08:33→20:28)
[2018-03-09] MEDS: Ascorbic Acid 500 MG Tablet PO SCH ×2 (08:34→20:28)
[2018-03-09] MEDS: Chlorhexidine 0.12% Oral Kit 15 ML UDC OROPHARYNG SCH ×2 (08:34→20:28)
[2018-03-09] MEDS: Nystatin 100,000 UNITS/GM Powder 15 GM Bottle TOPICAL SCH ×2 (08:34→20:28)
[2018-03-09] MEDS: Gabapentin 100 MG Capsule PO SCH ×2 (08:34→20:28)
[2018-03-09] MEDS: Potassium Chloride 25 MEQ Effervescent Tablet PO SCH ×2 (08:34→20:27)
[2018-03-09] MEDS: Amiodarone 200 MG Tablet PO SCH (08:34)
--- NOTE | 2018-03-09 09:34 | P.PN ---
Subjective Interval history: alert less sobalert less sob Physical Exam Vital signs: Vital Signs 03/08/18 10:00 03/08/18 11:42 03/08/18 12:00 Temperature 98.0 F Pulse Rate 94 H 90 Respiratory Rate 18 Blood Pressure 147/63 H Pulse Oximetry 97 96 03/08/18 14:00 03/08/18 15:30 03/08/18 16:00 Temperature 98.6 F Pulse Rate 87 91 H Respiratory Rate 26 H Blood Pressure 148/66 H 151/65 H Pulse Oximetry 100 03/08/18 16:01 03/08/18 16:30 03/08/18 17:00 Temperature Pulse Rate 92 H 89 91 H Respiratory Rate 26 H 28 H 29 H Blood Pressure 151/65 H 147/58 H 143/63 H Pulse Oximetry 100 98 99 03/08/18 17:30 03/08/18 18:00 03/08/18 18:30 Temperature Pulse Rate 92 H 84 84 Respiratory Rate 20 19 15 Blood Pressure 138/87 144/64 H 136/62 Pulse Oximetry 100 100 100 03/08/18 19:00 03/08/18 19:30 03/08/18 20:00 Temperature 98.7 F Pulse Rate 84 84 84 Respiratory Rate 15 17 0 L Blood Pressure 131/60 131/60 125/57 L Pulse Oximetry 100 98 98 03/08/18 20:30 03/08/18 20:56 03/08/18 21:00 Temperature Pulse Rate 84 84 Respiratory Rate 14 19 Blood Pressure 123/61 119/57 L Pulse Oximetry 99 98 98 03/08/18 21:30 03/08/18 22:00 03/08/18 22:30 Temperature Pulse Rate 84 88 87 Respiratory Rate 15 27 H 21 Blood Pressure 122/59 L 128/57 L 130/60 Pulse Oximetry 97 93 L 97 03/08/18 23:00 03/08/18 23:30 03/09/18 00:00 Temperature Pulse Rate 86 89 88 Respiratory Rate 23 29 H 27 H Blood Pressure 127/59 L 126/58 L 120/56 L Pulse Oximetry 97 88 L 94 L 03/09/18 00:30 03/09/18 01:00 03/09/18 01:30 Temperature Pulse Rate 90 86 85 Respiratory Rate 21 15 15 Blood Pressure 125/59 L 122/56 L 130/62 Pulse Oximetry 97 97 96 03/09/18 02:00 03/09/18 02:30 03/09/18 03:00 Temperature Pulse Rate 84 87 85 Respiratory Rate 16 17 15 Blood Pressure 126/60 129/61 130/63 Pulse Oximetry 95 96 96 03/09/18 03:30 03/09/18 03:35 03/09/18 04:00 Temperature Pulse Rate 85 86 Respiratory Rate 16 25 H Blood Pressure 126/58 L 125/58 L Pulse Oximetry 96 96 97 03/09/18 04:30 03/09/18 05:00 03/09/18 05:30 Temperature Pulse Rate 86 86 92 H Respiratory Rate 22 19 28 H Blood Pressure 127/58 L 124/58 L 141/64 H Pulse Oximetry 96 96 94 L 03/09/18 06:00 03/09/18 08:00 Temperature Pulse Rate 92 H 92 H Respiratory Rate 26 H Blood Pressure 128/62 Pulse Oximetry 94 L Intake & Output 03/08/18 03/09/18 03/09/18 18:59 06:59 18:59 Intake Total 900 / 900 1050 / 1050 Output Total 950 / 950 1800 / 1800 Balance -50 / -50 -750 / -750 Weight 162.2 kg Intake: IV 400 / 400 450 / 450 Lasix Inj 100 MG In NS Inj 90 100 / 100 100 / 100 ML @ 10 mls/hr IV.CONT .Q10H [facility] Rx#:[id number] Heparin/D5W 25,000 U/250 mL 25, 250 / 250 250 / 250 000 unit In 250 ml @ Per Protocol IV.CONT TITRATE PRN Rx #:[id number] Zosyn 2.25 GM Premix 50 ML @ 50 / 50 100 / 100 100 mls/hr IV.SIG Q8H [facility] Rx#: [id number] Oral 500 / 500 600 / 600 Output: Urine Amount (Catheter) 950 / 950 1800 / 1800 Indwelling Urethral Catheter 950 / 950 1800 / 1800 Other: Date of Last Bowel Movement 03/07/18 03/07/18 Narrative: GENERAL: 72-year-old obese male currently on biapa, with sob. SKIN: Warm and dry. Chronic venous stasis bilateral lower extremities CARDIOVASCULAR: Regular rate and rhythm. S1, S2 no S4. RESPIRATORY: Decreased breath sounds. SOB. GASTROINTESTINAL: Abdomen soft, non-tender, obese with large pannus. MUSCULOSKELETAL: Extremities with trace to 1+ bilateral lower extremity edema. NEUROLOGICAL: Moves all 4 extremity spontaneously. Strength slightly weaker in the lower extremities. - Urinary Catheter Management Indwelling Urethral Catheter Cath placed during this visit: yes, but has since been removed by the nurse Reason for continuing: Chronic Urinary Retention Insertion date: 02/26/18 Insertion time: 16:00 Removal date: 02/26/18 Removal time: 15:30 Results - Labs CBC & Chem 7: 03/08/18 03:14 03/08/18 03:14 Laboratory Results - last 24 hr 03/08/18 03/08/18 03/09/18 14:05 18:47 01:06 POC Glucose 174 H 158 H 145 H Assessment and Plan - Plan RESPIRATORY FAILURE RENAL FAILURE SEPSIS MIRTA/CSA PLAN O2 NEEDED ANTIBIOTICS BIPAP/SLEEP Procedures - Arterial Line Size (Gauge): 20
[2018-03-09 11:16] LABS: Baso # (Auto) 0.1 th/mm3 (0.0-0.2); Baso % (Auto) 0.6 % (0.0-2.0); Eos # (Auto) 0.4 th/mm3 (0.0-0.4); Eos % (Auto) 2.7 % (0.0-4.0); Hematocrit 26.9 % (39.0-51.0); Hemoglobin 8.7 gm/dL (13.0-17.0); Lymph # (Auto) 1.1 th/mm3 (1.0-4.8); Lymph % (Auto) 7.2 % (9.0-44.0); Mean Corpuscular HGB Conc 32.5 % (32.0-36.0); Mean Corpuscular Hemoglobin 28.6 pg (27.0-34.0); Mean Platelet Volume 8.5 fL (7.0-11.0); Mono # (Auto) 0.8 th/mm3 (0.0-0.9); Mono % (Auto) 5.6 % (0.0-8.0); Neut # (Auto) 12.8 th/mm3 (1.8-7.7); Neut % (Auto) 83.9 % (16.0-70.0); Platelet Count 211 th/mm3 (150-450); Red Blood Count 3.05 mil/mm3 (4.50-5.90); White Blood Count 15.2 th/mm3 (4.0-11.0)
[2018-03-09 11:27] LABS: Alanine Aminotransferase 20 U/L (12-78); Albumin 2.4 g/dL (3.4-5.0); Anion Gap 11 meq/L (5-15); Aspartate Aminotransferase 15 U/L (15-37); Blood Urea Nitrogen 18 mg/dL (7-18); Carbon Dioxide 23.5 meq/L (21.0-32.0); Chloride 100 meq/L (98-107); Glomerular Filtration Rate 23 mL/min (>89); Glucose,Random 154 mg/dL (74-106); Magnesium 1.7 mg/dL (1.5-2.5); Sodium 134 meq/L (136-145)
[2018-03-09 11:29] LABS: Alkaline Phosphatase 184 U/L (45-117); Total Protein 6.7 g/dL (6.4-8.2)
--- NOTE | 2018-03-09 13:44 | P.PNNP ---
Subjective Interval history: Patient is alert, with nasal cannula and has mild SOB. Physical Exam Vital signs: Vital Signs 03/08/18 14:00 03/08/18 15:30 03/08/18 16:00 Temperature 98.6 F Pulse Rate 87 91 H Respiratory Rate 26 H Blood Pressure 148/66 H 151/65 H Pulse Oximetry 100 03/08/18 16:01 03/08/18 16:30 03/08/18 17:00 Temperature Pulse Rate 92 H 89 91 H Respiratory Rate 26 H 28 H 29 H Blood Pressure 151/65 H 147/58 H 143/63 H Pulse Oximetry 100 98 99 03/08/18 17:30 03/08/18 18:00 03/08/18 18:30 Temperature Pulse Rate 92 H 84 84 Respiratory Rate 20 19 15 Blood Pressure 138/87 144/64 H 136/62 Pulse Oximetry 100 100 100 03/08/18 19:00 03/08/18 19:30 03/08/18 20:00 Temperature 98.7 F Pulse Rate 84 84 84 Respiratory Rate 15 17 0 L Blood Pressure 131/60 131/60 125/57 L Pulse Oximetry 100 98 98 03/08/18 20:30 03/08/18 20:56 03/08/18 21:00 Temperature Pulse Rate 84 84 Respiratory Rate 14 19 Blood Pressure 123/61 119/57 L Pulse Oximetry 99 98 98 03/08/18 21:30 03/08/18 22:00 03/08/18 22:30 Temperature Pulse Rate 84 88 87 Respiratory Rate 15 27 H 21 Blood Pressure 122/59 L 128/57 L 130/60 Pulse Oximetry 97 93 L 97 03/08/18 23:00 03/08/18 23:30 03/09/18 00:00 Temperature Pulse Rate 86 89 88 Respiratory Rate 23 29 H 27 H Blood Pressure 127/59 L 126/58 L 120/56 L Pulse Oximetry 97 88 L 94 L 03/09/18 00:30 03/09/18 01:00 03/09/18 01:30 Temperature Pulse Rate 90 86 85 Respiratory Rate 21 15 15 Blood Pressure 125/59 L 122/56 L 130/62 Pulse Oximetry 97 97 96 03/09/18 02:00 03/09/18 02:30 03/09/18 03:00 Temperature Pulse Rate 84 87 85 Respiratory Rate 16 17 15 Blood Pressure 126/60 129/61 130/63 Pulse Oximetry 95 96 96 03/09/18 03:30 03/09/18 03:35 03/09/18 04:00 Temperature Pulse Rate 85 86 Respiratory Rate 16 25 H Blood Pressure 126/58 L 125/58 L Pulse Oximetry 96 96 97 03/09/18 04:30 03/09/18 05:00 03/09/18 05:30 Temperature Pulse Rate 86 86 92 H Respiratory Rate 22 19 28 H Blood Pressure 127/58 L 124/58 L 141/64 H Pulse Oximetry 96 96 94 L 03/09/18 06:00 03/09/18 07:00 03/09/18 07:30 Temperature Pulse Rate 92 H 93 H 93 H Respiratory Rate 26 H 31 H 28 H Blood Pressure 128/62 121/55 L 123/59 L Pulse Oximetry 94 L 95 96 03/09/18 08:00 03/09/18 08:30 03/09/18 09:00 Temperature 97.5 F L Pulse Rate 92 H 92 H 94 H Respiratory Rate 30 H 46 H 29 H Blood Pressure 138/58 L 138/65 141/60 H Pulse Oximetry 93 L 96 94 L 03/09/18 09:30 03/09/18 10:00 03/09/18 12:00 Temperature Pulse Rate 92 H 90 91 H Respiratory Rate 28 H 15 Blood Pressure 140/65 Pulse Oximetry 94 L Intake & Output 03/08/18 03/09/18 03/09/18 18:59 06:59 18:59 Intake Total 900 / 900 1050 / 1050 Output Total 950 / 950 1800 / 1800 Balance -50 / -50 -750 / -750 Weight 162.2 kg Intake: IV 400 / 400 450 / 450 Lasix Inj 100 MG In NS Inj 90 100 / 100 100 / 100 ML @ 10 mls/hr IV.CONT .Q10H ANA Rx#:[id number] Heparin/D5W 25,000 U/250 mL 25, 250 / 250 250 / 250 000 unit In 250 ml @ Per Protocol IV.CONT TITRATE PRN Rx #:[id number] Zosyn 2.25 GM Premix 50 ML @ 50 / 50 100 / 100 100 mls/hr IV.SIG Q8H ANA Rx#: [id number] Oral 500 / 500 600 / 600 Output: Urine Amount (Catheter) 950 / 950 1800 / 1800 Indwelling Urethral Catheter 950 / 950 1800 / 1800 Other: Date of Last Bowel Movement 03/07/18 03/07/18 03/07/18 Narrative: GENERAL: 72-year-old obese male currently on biapa, with sob. SKIN: Warm and dry. Chronic venous stasis bilateral lower extremities CARDIOVASCULAR: Regular rate and rhythm. S1, S2 no S4. RESPIRATORY: Decreased breath sounds. SOB. GASTROINTESTINAL: Abdomen soft, non-tender, obese with large pannus. MUSCULOSKELETAL: Extremities with trace to 1+ bilateral lower extremity edema. NEUROLOGICAL: Moves all 4 extremity spontaneously. Strength slightly weaker in the lower extremities. - Urinary Catheter Management Indwelling Urethral Catheter Cath placed during this visit: yes, but has since been removed by the nurse Reason for continuing: Chronic Urinary Retention Insertion date: 02/26/18 Insertion time: 16:00 Removal date: 02/26/18 Removal time: 15:30 Assessment and Plan - Assessment (1) Acute renal failure Code(s): N17.9 - Acute kidney failure, unspecified Status: Acute (2) Chronic kidney disease Code(s): N18.9 - Chronic kidney disease, unspecified Status: Acute (3) Shock Code(s): R57.9 - Shock, unspecified Status: Acute (4) BMI 50.0-59.9, adult Code(s): Z68.43 - Body mass index (BMI) 50-59.9, adult Status: Chronic (5) 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 Code(s): E11.9 - Type 2 diabetes mellitus without complications Status: Chronic Qualifiers: 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 type: type 2 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 intermediate frame tender insulin use: with fpc use 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 complication status: with kidney complications 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 complication detail: with other kidney complication Qualified Code(s): E11.29 - Type 2 diabetes mellitus with other diabetic kidney complication; Z79.4 - FDC (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 - Plan Patient with chronic kidney disease and PIERRE. Continue diuretics, and Creatinine is 2.6-2.7. Maintain strict I+O's. Recommend to continue Lasix and album gtts with fluid overload. Will continue to monitor urinary output and BMP. Avoid nephrotoxins. Labs in AM. Procedures - Arterial Line Size (Gauge): 20
--- NOTE | 2018-03-09 14:09 | P.PNCA ---
Subjective Interval history: No CP or SOB, somnolent, AF rate controlled Medications and Allergies Active Medications: Active Medications Acetaminophen (Tylenol) 650 mg PO Q6H PRN PRN Reason: FEVER Last Admin: 03/04/18 17:51 Dose: 650 mg Acetaminophen (Tylenol) 650 mg PO UNSCH PRN PRN Reason: SEE LABEL COMMENTS Hydrocodone Bitart/Acetaminophen ([place] 5/325) 1 tab PO Q4H PRN PRN Reason: Pain 1 through 5 Last Admin: 03/09/18 08:52 Dose: 1 tab Al Hydroxide/Mg Hydroxide (Milk Of Freda Arriaga) 30 ml PO Q12H PRN PRN Reason: Mild Constipation Albuterol (Albuterol Neb (Prn)) 2.5 mg NEB Q2HR NEB PRN PRN Reason: SHORTNESS OF BREATH/WHEEZING Amiodarone HCl (Cordarone) 200 mg PO DAILY [facility] Last Admin: 03/09/18 08:34 Dose: 200 mg Artificial Tears (Tears Naturale Opth Drops) 1 drop EACH EYE Q8H [facility] Last Admin: 03/09/18 06:33 Dose: Not Given Ascorbic Acid (Vitamin C) 500 mg PO BID [facility] Last Admin: 03/09/18 08:34 Dose: 500 mg Atorvastatin Calcium (Lipitor) 20 mg PO HS [facility] Last Admin: 03/08/18 21:57 Dose: 20 mg Bisacodyl (Dulcolax Supp) 10 mg RECTAL DAILY PRN PRN Reason: SEVERE CONSITIPATION Chlorhexidine Gluconate (Peridex 0.12% Oral Kit) 15 ml OROPHARYNG BID@0800, 2000 [facility] Last Admin: 03/09/18 08:34 Dose: Not Given Clonidine HCl (Catapres) 0.1 mg PO UNSCH PRN PRN Reason: SEE LABEL COMMENTS Diphenhydramine HCl (Benadryl) 25 mg PO UNSCH PRN PRN Reason: SEE LABEL COMMENTS Last Admin: 03/04/18 21:52 Dose: 25 mg Duloxetine HCl (Cymbalta) 20 mg PO DAILY [facility] Last Admin: 03/09/18 08:33 Dose: 20 mg Gabapentin (Neurontin) 200 mg PO BID [facility] Last Admin: 03/09/18 08:34 Dose: 200 mg Gelatin (Gelfoam 12 Mm/7 Mm Topical) 1 foam TOPICAL PRN PRN PRN Reason: help stop bleeding from site Last Admin: 03/05/18 05:08 Dose: 1 foam Gentamicin Sulfate (Gentamicin Inj) 20 mg OTHER WITH DIALYSIS PRN PRN Reason: Dwell Gentamycin Lock Last Admin: 03/03/18 09:16 Dose: 20 mg Heparin Sodium (Porcine) (Heparin Inj) 1,000 units OTHER WITH DIALYSIS PRN PRN Reason: Dwell Heparin to Fill Catheter Last Admin: 03/03/18 09:15 Dose: 1,000 units Heparin Sodium (Porcine) (Heparin Inj) 8,000 units OTHER WITH DIALYSIS PRN PRN Reason: for machine prime Hydralazine HCl (Apresoline Inj) 10 mg IV.PUSH Q1H PRN PRN Reason: SYS BP GREATER THAN 170 MMHG Piperacillin/Tazobactam/Dextrose (Zosyn 2.25 Gm Premix) 50 mls @ 100 mls/hr IV.SIG Q8H ANA Last Infusion: 03/09/18 06:38 Dose: Infused Propofol (Diprivan 1000 Mg/100 Ml Inj) 1,000 mg in 100 mls @ 5.171 mls/hr IV.CONT TITRATE PRN; Protocol PRN Reason: Per Protocol Albumin Human (Flexbumin 25% Inj) 100 mls @ 60 mls/hr IV.SIG WITH DIALYSIS PRN PRN Reason: hypotension / volume replace Last Infusion: 03/04/18 07:00 Dose: Infused Sodium Chloride (Ns Inj) 1,000 mls @ 0 mls/hr OTHER .Q0M PRN PRN Reason: for prime and rinse back Sodium Chloride (Ns Inj) 1,000 mls @ 200 mls/hr OTHER .Q5H PRN PRN Reason: for dialyzer flush PRN Sodium Chloride (Ns Inj) 1,000 mls @ 0 mls/hr IV.CONT .Q0M PRN PRN Reason: hypotension / volume replace Heparin Sodium/Dextrose (Heparin/D5w 25,000 U/250 Ml) 25,000 unit in 250 mls @ 0 mls/hr IV.CONT TITRATE PRN; Protocol PRN Reason: Per Protocol Last Admin: 03/09/18 05:30 Dose: 1,800 units/hr, 18 mls/hr Furosemide 100 mg/ Sodium (Chloride) 100 mls @ 10 mls/hr IV.CONT .Q10H ANA Last Admin: 03/09/18 02:30 Dose: 10 mls/hr Lactulose (Lactulose Liq) 30 ml PO DAILY PRN PRN Reason: SEVERE CONSITIPATION Levothyroxine Sodium (Synthroid) 50 mcg PO DAILY@0600 [facility] Last Admin: 03/09/18 05:29 Dose: 50 mcg Mannitol (Mannitol Inj) 12.5 gm IV.PUSH UNSCH PRN PRN Reason: hypotension / volume replace Memantine (Namenda) 5 mg PO QPM [facility] Last Admin: 03/08/18 17:22 Dose: 5 mg Miscellaneous Medication () 1 each OROPHARYNG 0000,0400,1200,1600 [facility] Last Admin: 03/09/18 03:34 Dose: Not Given Morphine Sulfate (Morphine Inj) 2 mg IV.PUSH Q3H PRN PRN Reason: Pain 6 through 10 Last Admin: 03/08/18 17:23 Dose: 2 mg Multivitamins (Theragran) 1 tab PO DAILY [facility] Last Admin: 03/09/18 08:34 Dose: 1 tab Nitroglycerin (Nitro-Bid 2% Oint) 2 inch TOPICAL Q6HR PRN PRN Reason: SYS BP GREATER THAN 170 MMHG Nitroglycerin (Nitrostat Sl) 0.4 mg SL Q5M PRN PRN Reason: CHEST PAIN Nystatin (Mycostatin Powder) 1 applicatio TOPICAL BID [facility] Last Admin: 03/09/18 08:34 Dose: 1 applicatio Ondansetron HCl (Zofran Inj) 4 mg IV.PUSH Q6H PRN PRN Reason: NAUSEA OR VOMITING Ondansetron HCl (Zofran Inj) 4 mg IV.PUSH UNSCH PRN PRN Reason: NAUSEA OR VOMITING Pantoprazole Sodium (Protonix) 40 mg PO DAILY [facility] Last Admin: 03/09/18 08:34 Dose: 40 mg Potassium Bicarb/Potassium Chloride (K-Lyte Cl Eff) 25 meq PO BID [facility] Last Admin: 03/09/18 08:34 Dose: 25 meq Senna/Docusate Sodium (Kim-Colace) 1 tab PO BID [facility] Last Admin: 03/09/18 08:33 Dose: 1 tab Sennosides (Senokot) 17.2 mg PO Q12H PRN PRN Reason: Moderate Constipation Sodium Chloride (Ns Flush) 2 ml IV.FLUSH BID [facility] Last Admin: 03/09/18 08:35 Dose: 2 ml Sodium Chloride (Ns Flush) 2 ml IV.FLUSH PRN PRN PRN Reason: FLUSH AFTER USING IV ACCESS Sodium Chloride (Ns Flush) 0 ml IV.FLUSH DAILY [facility] Last Admin: 03/09/18 08:35 Dose: 4 ml Sodium Chloride (Ns Flush) 0 ml IV.FLUSH PRN PRN PRN Reason: FLUSH AFTER USING IV ACCESS Sodium Chloride (Ns Flush) 5 ml IV.FLUSH PRN PRN PRN Reason: flush each lumen during HD Tamsulosin HCl (Flomax) 0.4 mg PO DAILY [facility] Last Admin: 03/09/18 08:34 Dose: 0.4 mg Zinc Sulfate (Zinc-220) 220 mg PO DAILY [facility] Last Admin: 03/09/18 08:34 Dose: 220 mg Allergies Allergy/AdvReac Type Severity Reaction Status Date / Time daptomycin Allergy Severe Unverified 11/02/16 23:29 Sulfa (Sulfonamide Allergy Mild RASH Unverified 11/02/16 23:29 Antibiotics) Home Medications Medication Instructions Recorded Confirmed Type Lactobacillus acidophilus 1 tab PO BID 02/26/18 02/26/18 History [Acidophilus] alfuzosin 10 mg PO DAILY 02/26/18 02/26/18 History amino acids-protein hydrolys 30 ml PO DAILY 02/26/18 02/26/18 History [Pro-Stat Sugar Free] amiodarone 200 mg PO DAILY 02/26/18 02/26/18 History amlodipine 5 mg PO DAILY 02/26/18 02/26/18 History ascorbic acid (vitamin C) [Vitamin 500 mg PO BID 02/26/18 02/26/18 History C] atorvastatin 20 mg PO HS 02/26/18 02/26/18 History bisacodyl [Dulcolax (bisacodyl)] 10 mg MA DAILY PRN 02/26/18 02/26/18 History duloxetine [Cymbalta] 20 mg PO DAILY 02/26/18 02/26/18 History furosemide [Lasix] 20 mg PO BID 02/26/18 02/26/18 History gabapentin 600 mg PO TID 02/26/18 02/26/18 History insulin lispro [Humalog U-100 2 - 10 unit SUBCUT ACHS 02/26/18 02/26/18 History Insulin] levothyroxine 50 mcg PO DAILY 02/26/18 02/26/18 History magnesium hydroxide [Milk of 30 ml PO DIRECTED PRN 02/26/18 02/26/18 History Magnesia] memantine [Namenda] 5 mg PO QPM 02/26/18 02/26/18 History metoprolol tartrate 25 mg PO BID 02/26/18 02/26/18 History morphine [MS Contin] 15 mg PO Q12H 02/26/18 02/26/18 History multivitamin [Tab-A-Lucille] 1 tab PO DAILY 02/26/18 02/26/18 History olmesartan 20 mg PO DAILY 02/26/18 02/26/18 History ondansetron HCl [Zofran] 4 mg PO Q8H PRN 02/26/18 02/26/18 History ondansetron [Zofran ODT] 4 mg PO Q6H PRN 02/26/18 02/26/18 History rivaroxaban [Xarelto] 20 mg PO QPM 02/26/18 02/26/18 History sennosides-docusate sodium 2 tab PO BID PRN 02/26/18 02/26/18 History sodium phosphates [Fleet Enema] 118 ml MA DIRECTED PRN 02/26/18 02/26/18 History zinc sulfate 220 mg PO DAILY 02/26/18 02/26/18 History Physical Exam Vital signs: Vital Signs 03/08/18 15:30 03/08/18 16:00 03/08/18 16:01 Temperature 98.6 F Pulse Rate 91 H 92 H Respiratory Rate 26 H 26 H Blood Pressure 148/66 H 151/65 H 151/65 H Pulse Oximetry 100 100 03/08/18 16:30 03/08/18 17:00 03/08/18 17:30 Temperature Pulse Rate 89 91 H 92 H Respiratory Rate 28 H 29 H 20 Blood Pressure 147/58 H 143/63 H 138/87 Pulse Oximetry 98 99 100 03/08/18 18:00 03/08/18 18:30 03/08/18 19:00 Temperature Pulse Rate 84 84 84 Respiratory Rate 19 15 15 Blood Pressure 144/64 H 136/62 131/60 Pulse Oximetry 100 100 100 03/08/18 19:30 03/08/18 20:00 03/08/18 20:30 Temperature 98.7 F Pulse Rate 84 84 84 Respiratory Rate 17 0 L 14 Blood Pressure 131/60 125/57 L 123/61 Pulse Oximetry 98 98 99 03/08/18 20:56 03/08/18 21:00 03/08/18 21:30 Temperature Pulse Rate 84 84 Respiratory Rate 19 15 Blood Pressure 119/57 L 122/59 L Pulse Oximetry 98 98 97 03/08/18 22:00 03/08/18 22:30 03/08/18 23:00 Temperature Pulse Rate 88 87 86 Respiratory Rate 27 H 21 23 Blood Pressure 128/57 L 130/60 127/59 L Pulse Oximetry 93 L 97 97 03/08/18 23:30 03/09/18 00:00 03/09/18 00:30 Temperature Pulse Rate 89 88 90 Respiratory Rate 29 H 27 H 21 Blood Pressure 126/58 L 120/56 L 125/59 L Pulse Oximetry 88 L 94 L 97 03/09/18 01:00 03/09/18 01:30 03/09/18 02:00 Temperature Pulse Rate 86 85 84 Respiratory Rate 15 15 16 Blood Pressure 122/56 L 130/62 126/60 Pulse Oximetry 97 96 95 03/09/18 02:30 03/09/18 03:00 03/09/18 03:30 Temperature Pulse Rate 87 85 85 Respiratory Rate 17 15 16 Blood Pressure 129/61 130/63 126/58 L Pulse Oximetry 96 96 96 03/09/18 03:35 03/09/18 04:00 03/09/18 04:30 Temperature Pulse Rate 86 86 Respiratory Rate 25 H 22 Blood Pressure 125/58 L 127/58 L Pulse Oximetry 96 97 96 03/09/18 05:00 03/09/18 05:30 03/09/18 06:00 Temperature Pulse Rate 86 92 H 92 H Respiratory Rate 19 28 H 26 H Blood Pressure 124/58 L 141/64 H 128/62 Pulse Oximetry 96 94 L 94 L 03/09/18 07:00 03/09/18 07:30 03/09/18 08:00 Temperature 97.5 F L Pulse Rate 93 H 93 H 92 H Respiratory Rate 31 H 28 H 30 H Blood Pressure 121/55 L 123/59 L 138/58 L Pulse Oximetry 95 96 93 L 03/09/18 08:30 03/09/18 09:00 03/09/18 09:30 Temperature Pulse Rate 92 H 94 H 92 H Respiratory Rate 46 H 29 H 28 H Blood Pressure 138/65 141/60 H 140/65 Pulse Oximetry 96 94 L 94 L 03/09/18 10:00 03/09/18 12:00 Temperature Pulse Rate 90 91 H Respiratory Rate 15 Blood Pressure Pulse Oximetry Intake & Output 03/08/18 03/09/18 03/09/18 18:59 06:59 18:59 Intake Total 900 / 900 1050 / 1050 Output Total 950 / 950 1800 / 1800 Balance -50 / -50 -750 / -750 Weight 357 lb 9.436 oz Intake: IV 400 / 400 450 / 450 Lasix Inj 100 MG In NS Inj 90 100 / 100 100 / 100 ML @ 10 mls/hr IV.CONT .Q10H ANA Rx#:[id number] Heparin/D5W 25,000 U/250 mL 25, 250 / 250 250 / 250 000 unit In 250 ml @ Per Protocol IV.CONT TITRATE PRN Rx #:[id number] Zosyn 2.25 GM Premix 50 ML @ 50 / 50 100 / 100 100 mls/hr IV.SIG Q8H ANA Rx#: [id number] Oral 500 / 500 600 / 600 Output: Urine Amount (Catheter) 950 / 950 1800 / 1800 Indwelling Urethral Catheter 950 / 950 1800 / 1800 Other: Date of Last Bowel Movement 03/07/18 03/07/18 03/07/18 - Constitutional no acute distress - Routine Respiratory Exam Present: CTA bilaterally - Routine Cardiovascular Exam Present: irregular rhythm - Routine Abdominal Exam Present: soft Comments: obese - Routine Extremities Exam Present: edema - Routine Neurological Exam somnolent - Routine Psychiatric Exam Present: cooperative - Urinary Catheter Management Indwelling Urethral Catheter Cath placed during this visit: yes, but has since been removed by the nurse Reason for continuing: Chronic Urinary Retention Insertion date: 02/26/18 Insertion time: 16:00 Removal date: 02/26/18 Removal time: 15:30 Results 03/09/18 10:27 03/09/18 10:27 Cardiac Enzymes 03/07/18 03/09/18 Range/Units 06:51 10:27 AST 15 (15-37) U/L B-Natriuretic Peptide 1811 H (0-100) pg/mL Coagulation 03/07/18 03/09/18 Range/Units 06:51 11:35 APTT 66.7 H (23.4-31.7) sec B-Natriuretic Peptide 1811 H (0-100) pg/mL CBC 03/08/18 03/09/18 Range/Units 03:14 10:27 WBC 16.1 H 15.2 H (4.0-11.0) th/mm3 RBC 3.18 L 3.05 L (4.50-5.90) mil/mm3 Hgb 9.0 L 8.7 L (13.0-17.0) gm/dL Hct 27.3 L 26.9 L (39.0-51.0) % Plt Count 194 211 (150-450) th/mm3 Neut # (Auto) 14.0 H 12.8 H (1.8-7.7) th/mm3 Lymph # (Auto) 0.9 L 1.1 (1.0-4.8) th/mm3 Bailey # (Auto) 1.0 H 0.8 (0.0-0.9) th/mm3 Eos # (Auto) 0.2 0.4 (0.0-0.4) th/mm3 Baso # (Auto) 0.1 0.1 (0.0-0.2) th/mm3 Comprehensive Metabolic Panel 03/08/18 03/09/18 Range/Units 03:14 10:27 Sodium 137 134 L (136-145) meq/L Potassium 3.5 4.0 (3.5-5.1) meq/L Chloride 101 100 (98-107) meq/L Carbon Dioxide 26.0 23.5 (21.0-32.0) meq/L BUN 17 18 (7-18) mg/dL Creatinine 2.71 H 2.77 H (0.60-1.30) mg/dL Calcium 8.5 8.0 L (8.5-10.1) mg/dL AST 15 (15-37) U/L ALT 20 (12-78) U/L Alkaline Phosphatase 184 H (45-117) U/L Total Protein 6.7 (6.4-8.2) g/dL Albumin 2.4 L (3.4-5.0) g/dL Intake and Output 03/08/18 03/09/18 03/09/18 22:59 06:59 14:59 Intake Total 850 / 850 1050 / 1050 Output Total 950 / 950 1800 / 1800 Balance -100 / -100 -750 / -750 Intake: IV 350 / 350 450 / 450 Lasix Inj 100 MG In NS Inj 90 100 / 100 100 / 100 ML @ 10 mls/hr IV.CONT .Q10H ANA Rx#:[id number] Heparin/D5W 25,000 U/250 mL 25, 250 / 250 250 / 250 000 unit In 250 ml @ Per Protocol IV.CONT TITRATE PRN Rx #:[id number] Zosyn 2.25 GM Premix 50 ML @ 100 / 100 100 mls/hr IV.SIG Q8H ANA Rx#: [id number] Oral 500 / 500 600 / 600 Output: Urine Amount (Catheter) 950 / 950 1800 / 1800 Indwelling Urethral Catheter 950 / 950 1800 / 1800 Other: Date of Last Bowel Movement 03/07/18 03/07/18 03/07/18 Weight 357 lb 9.436 oz Assessment and Plan - Assessment (1) CHF (congestive heart failure) Code(s): I50.9 - Heart failure, unspecified Status: Acute (2) Atrial flutter Code(s): I48.92 - Unspecified atrial flutter Status: Acute (3) Obstructive sleep apnea Code(s): G47.33 - Obstructive sleep apnea (adult) (pediatric) Status: Chronic (4) BMI 50.0-59.9, adult Code(s): Z68.43 - Body mass index (BMI) 50-59.9, adult Status: Chronic (5) Coronary artery disease Code(s): I25.10 - Atherosclerotic heart disease of [place] coronary artery without angina pectoris Status: Chronic (6) 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 Code(s): E11.9 - Type 2 diabetes mellitus without complications Status: Chronic (7) History of essential hypertension Code(s): Z86.79 - Personal history of other diseases of the circulatory system Status: Chronic (8) Hyperlipidemia Code(s): E78.5 - Hyperlipidemia, unspecified Status: Chronic (9) Chronic kidney disease Code(s): N18.9 - Chronic kidney disease, unspecified Status: Acute (10) Depression Code(s): F32.9 - Major depressive disorder, single episode, unspecified Status : Chronic - Plan Atrial flutter rate controlled, continue amio. Patient is on a Heparin gtt for anticoagulation, recommend switching to Eliquis 2.5mg PO BID. Patient has acute exacerbation of chronic kidney disease, nephrology evaluation in progress. Patient has AMS, neurology evaluation. Patient currently on Bipap due to respiratory distress, pulmonology evaluation in progress. We will continue to monitor the patient during his hospitalization. 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 Booth, after discharge from the hospital. Procedures - Arterial Line Size (Gauge): 20 (5) Coronary artery disease Qualifiers: Coronary Disease-Associated Artery/Lesion type: unspecified vessel or lesion type [place] vs. 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
--- NOTE | 2018-03-09 15:22 | P.PNIM ---
Subjective Interval history: In bed appears chronically ill. Eating better. No chest pain or sob. No n/v/d/c. Denies fever or chills. Some cough nonproductive. Physical Exam Vital signs: Last Vital Signs Temp 97.5 F L 03/09/18 08:00 Pulse 91 H 03/09/18 12:00 Resp 15 03/09/18 12:00 BP 140/65 03/09/18 09:30 Pulse Ox 94 L 03/09/18 09:30 Intake & Output 03/07/18 03/08/18 03/09/18 03/10/18 06:59 06:59 06:59 06:59 Intake Total 880 / 880 1110 / 1110 1950 / 1950 Output Total 1000 / 1000 1300 / 1300 2750 / 2750 Balance -120 / -120 -190 / -190 -800 / -800 Weight 162 kg 162 kg 162.2 kg Narrative: GENERAL: 72-year-old obese male currently on biapa, with sob. SKIN: Warm and dry. Chronic venous stasis bilateral lower extremities CARDIOVASCULAR: Regular rate and rhythm. S1, S2 no S4. RESPIRATORY: Decreased breath sounds. SOB. GASTROINTESTINAL: Abdomen soft, non-tender, obese with large pannus. MUSCULOSKELETAL: Extremities with trace to 1+ bilateral lower extremity edema. NEUROLOGICAL: Moves all 4 extremity spontaneously. Strength slightly weaker in the lower extremities. Urinary Catheter Management Indwelling Urethral Catheter: Cath placed during this visit: yes, but has since been removed by the nurse Insertion date: 02/26/18 Insertion time: 16:00 Removal date: 02/26/18 Removal time: 15:30 Results Labs CBC & Chem 7: 03/09/18 10:27 03/09/18 10:27 Assessment and Plan (1) Acute renal failure: Code(s): N17.9 - Acute kidney failure, unspecified Status: Acute (2) Chronic kidney disease: Code(s): N18.9 - Chronic kidney disease, unspecified Status: Acute (3) Shock: Code(s): R57.9 - Shock, unspecified Status: Acute (4) BMI 50.0-59.9, adult: Code(s): Z68.43 - Body mass index (BMI) 50-59.9, adult Status: Chronic (5) 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: Code(s): E11.9 - Type 2 diabetes mellitus without complications Status: Chronic Plan Neuro/Psych: Acute toxic metabolic encephalopathy History of TIA Depression/anxiety Chronic peripheral neuropathy secondary to diabetes mellitus Dementia disorder NOS Holding gabapentin 600 mg 3 times daily for peripheral neuropathy. Resume at 200 mg 3 times daily 03/04 Holding scheduled morphine 15 mg every 12 hours for chronic pain Holding duloxetine 20 mg daily for depression. Resume clinically indicated Resume memantine 5 mg at night for dementia Acetaminophen 650 mg every 6 hours as needed fever Hydrocodone/acetaminophen 5/325 1 tablet every 4 hours as needed pain 1 through 5 Morphine sulfate 2 mg IV every 2 hours as needed pain [address] brain revealed no acute intracranial findings 02/26. Ammonia level 20 EEG 02/28 revealed mild slowing. No epileptic activity. MR brain 1211 revealed no acute intracranial findings See musculoskeletal MR C-spine She neurology consult. Thiamine, B12 and MMA pending. CV: Sinus bradycardia -resolved Paroxysmal atrial fibrillation currently normal sinus rhythm History of essential hypertension HyperLipidemia coronary artery disease Congestive heart failure unknown etiology Receive 0.5 mg atropine in route. Received 1 L normal saline crystalloid bolus. Dopamine drip is off Holding atorvastatin 20 mg a day for dyslipidemia. Resume clinically indicated Holding amiodarone 200 mg daily for atrial fibrillation with hyperkalemia. Resume clinically indicated. Holding amlodipine 5 mg daily metoprolol tartrate 205mg twice daily for hypertension resume clinically indicated Holding olmesartan 20 mg daily with hyper kalemia and acute kidney injury. Initial troponin 0 0.02. Trend was negative. 02/28 2D echocardiogram -EF 55-60%. LVH. Moderate MR. PA P 58 mmHg Consult his cardiology Dr justice Monitor on telemetry Resp: History of obstructive sleep apnea Right greater than left pleural effusion/exudative by light's criteria Acute respiratory failure Currently on PRVC ventilation Head of bed at 30 degrees Ventilator bundle Albuterol/ipratropium aerosols every 4 hours with albuterol aerosols every 2 as needed dyspnea Will likely need CPAP once extubated Spontaneous breathing trials and clinically indicated CT thoracentesis ordered right pleural effusion. -[address] chest revealed right greater than left pleural effusion. Anasarca.. Atelectasis right lower lobe CPAP trial today to extubate. Extubated 03/03 The patient has been on/off BIPAP Will consult pulm GI: Elevated transaminases Elevated alkaline phosphatase Hospital left liver mass 5 cm Hypoalbuminemia Monitor transaminases. Check hepatitis panel was negative Tube feeds on hold for possible extubation pantoprazole for GI prophylaxis DC sodium/senna 1 tablet twice daily for bowel regimen. Avoid hepatotoxic medications Follow-up on CT abdomen/pelvis revealed small left liver mass. Follow-up MRI of liver in future : BPH Holding alfazosin 10 mg daily for BPH while hypotensive on vasopressors Maintain Orozco catheter Endo: 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 Hypothyroidism with elevated TSH On levothyroxine 50 mcg daily. Continue TSH was 5.02 Sliding scale insulin with Accu-Cheks to maintain euglycemia every 6 hours/ aspart insulin low regimen On sliding scale lispro insulin at home Renal: Acute kidney injury in the setting of chronic kidney disease stage IIIb Maintain Orozco catheter Monitor urine output Accurate I's and O's Check urine eosinophils, sodium and creatinine Will receive hemodialysis 12/27. Also received 02/27. Per nephrology's request. Dr. Leal has been consulted. Defer dialysis to him in future -2500 cc 02/27 950 cc urine output past 24 hours 03/07/18 noted with low BP, received 500 cc NS, BP is better controlled however patient wit sob. CXR reviewed appears with fluid overload. RReceived albumin and started on lasix, precaution as patient with low BP Heme: Leukocytosis Normocytic anemia Chronic rivaroxaban use -holding 48 hours pending thoracentesis Elevated INR/PTT Monitor CBC daily. Follow trends. No indication for transfusion of blood products at this time. Resume baseline anticoagulant after CT head ID: Capnocytophaga sputum positive Blood cultures x2, and UA 02/26 no growth Sputum revealed gram-positive cocci in pairs and clusters 02/27. 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 Received acute hemodialysis today which will correct the underlying electrolyte derangement Potassium currently within normal limits. Recheck in a.m. Hypokalemia. Monitor and replace. MSK: Elevated BMI greater than 50 Bilateral lower extremity heel ulcers Cervical canal stenosis Weight loss encouraged PT evaluate and Wound care evaluate and treat MR C-spine revealed C2/3 ventral cord with LF thickening. Thecal sac 4 mm. Moderate C4/5 C5/6 and C6-7 stenosis. Mild C3/4 and C7/T1 stenosis Access -Right femoral CVL and right femoral arterial CVL day 3 placed the ED by . Discontinued 03/01 -Right IJ dialysis catheter removed Prophylaxis -GI -pantoprazole -DVT -SCD heparin gtt Discussed with the patient, ICU nurse. Progress Note: Quality VTE Deep Vein Thrombosis/Pulmonary Embolism Present on Admission: No Procedures Arterial Line Size (Gauge): 20 _ (1) Acute renal failure Qualifiers: Acute renal failure type: (2) Chronic kidney disease Qualifiers: Chronic kidney disease stage: (3) 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 Qualifiers: 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 type: type 2 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 retirement insulin use: with long term care administrator use 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 complication status: with kidney complications 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 complication detail: with other kidney complication Diabetic retinopathy severity: Proliferative retinopathy type: 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 macular edema: Laterality: Chronic kidney disease stage: Qualified Code(s): E11.29 - Type 2 diabetes mellitus with other diabetic kidney complication; Z79.4 - long term care pharmacist (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
--- NOTE | 2018-03-09 15:50 | PQ ---
Physician Query Response Document PATIENT: Ebenezer Lr : 1945 ADMIT DATE: 02/26/2018 12:16 PM DISCH DATE: RESPONDING PROVIDER #: MCOSMA QUERY TEXT: Acuity Specificity Pulmonary edema is documented in the Medical Record. Please specify the acuity of this condition with terms such as: -- Acute -- Chronic -- Acute and chronic -- Acute on chronic -- Other (please specify in the medical record) The patient's Clinical Indicators include: Pulmonary edema acuity: "Pulmonary edema" treated with IV Lasix Please clarify and document your clinical opinion in the progress notes and discharge summary includi ng the definitive and/or presumptive diagnosis (suspected or probable), related to the above clinical findings. Please include clinical findings supporting your diagnosis. Thank you, Monica De Dios : BERTO/RN ext. [id number] Query created by: Monica De Dios on 03/07/2018 3:22 PM RESPONSE TEXT: CHF with preserved EF PIERRE and decreased UOP, fluid overload requiring lasix Sleep apnea QUERY TEXT: CDS Clarification Acute on chronic diastolic (congestive) heart failure in the setting of Atrial fib, Obesity, Renal di sease treated with IV Lasix, Cardiology consult Other explanation of clinical findings. Unable to determine (no explanation for clinical findings). The patient's Clinical Indicators include: The medical record reflects the following clinical findings, treatment, and risk factors. * Clinical Indicators: CHF with preserved EF 55-60%, Acute CHF BNP 1811 Atrial fib/flutter * Risk Factors: Morbid obesity CKD 2+ pitting edema lower extremities * Treatment: IV Lasix, Cardiology consult Please clarify and document your clinical opinion in the progress notes and discharge summary includi ng the definitive and/or presumptive diagnosis (suspected or probable), related to the above clinical findings. Please include clinical findings supporting your diagnosis. Thank you, Monica De Dios : BERTO/RN ext. [phone] Query created by: Monica De Dios on 03/09/2018 9:51 AM RESPONSE TEXT: Patient with CHF with preserved EF Electronically signed by: Mel Morales MD 03/09/2018 3:45 PM
[2018-03-10] MEDS: Furosemide Inj 100 MG in Sodium Chlor 0.9% Inj 90 ML IV.CONT SCH ×3 (00:16→17:22)
[2018-03-10] MEDS: Oral Hygiene Kit OROPHARYNG SCH ×5 (00:17→23:22)
[2018-03-10] MEDS: Artificial Tears Opth Drops 15 ML Bottle EACH EYE SCH ×4 (00:18→23:21)
[2018-03-10] MEDS: Levothyroxine 50 MCG Tablet PO SCH (06:03)
[2018-03-10] MEDS: Piperacil/Tazo 2.25 GM Premix 50 ML IV.SIG SCH ×3 (06:03→21:33)
[2018-03-10 06:54] LABS: Baso # (Auto) 0.1 th/mm3 (0.0-0.2); Baso % (Auto) 0.9 % (0.0-2.0); Eos # (Auto) 0.4 th/mm3 (0.0-0.4); Eos % (Auto) 2.5 % (0.0-4.0); Hemoglobin 8.8 gm/dL (13.0-17.0); Lymph % (Auto) 6.8 % (9.0-44.0); Mean Corpuscular HGB Conc 33.9 % (32.0-36.0); Mean Corpuscular Hemoglobin 29.3 pg (27.0-34.0); Mean Corpuscular Volume 86.4 fL (80.0-100.0); Mean Platelet Volume 9.1 fL (7.0-11.0); Mono # (Auto) 0.9 th/mm3 (0.0-0.9); Mono % (Auto) 5.7 % (0.0-8.0); Neut # (Auto) 12.6 th/mm3 (1.8-7.7); Neut % (Auto) 84.1 % (16.0-70.0); Platelet Count 214 th/mm3 (150-450); Red Blood Count 3.02 mil/mm3 (4.50-5.90); Red Cell Distribution Width 15.2 % (11.6-17.2)
[2018-03-10 07:16] LABS: Calcium 8.5 mg/dL (8.5-10.1); Carbon Dioxide 26.8 meq/L (21.0-32.0); Potassium 3.4 meq/L (3.5-5.1)
--- NOTE | 2018-03-10 07:50 | P.PNIM ---
Subjective Interval history: Patient is on/off bipap as with MIRTA Low K replaced Also with anhedonia depression, consult psych DC heparin and switch to eliquis per renal dose. Feels tired and sob. No fever or chills. Physical Exam Vital signs: Last Vital Signs Temp 98.7 F 03/09/18 20:00 Pulse 91 H 03/10/18 06:00 Resp 16 03/10/18 04:00 BP 126/56 L 03/10/18 02:30 Pulse Ox 97 03/10/18 04:14 Intake & Output 03/08/18 03/09/18 03/10/18 03/11/18 06:59 06:59 06:59 06:59 Intake Total 1110 / 1110 1950 / 1950 1700 / 1700 50 / 50 Output Total 1300 / 1300 2750 / 2750 2600 / 2600 Balance -190 / -190 -800 / -800 -900 / -900 50 / 50 Weight 162 kg 162.2 kg 158.2 kg Narrative: GENERAL: 72-year-old obese male currently on biapa, with sob. SKIN: Warm and dry. Chronic venous stasis bilateral lower extremities CARDIOVASCULAR: Regular rate and rhythm. S1, S2 no S4. RESPIRATORY: Decreased breath sounds. SOB. GASTROINTESTINAL: Abdomen soft, non-tender, obese with large pannus. MUSCULOSKELETAL: Extremities with trace to 1+ bilateral lower extremity edema. NEUROLOGICAL: Moves all 4 extremity spontaneously. Strength slightly weaker in the lower extremities. PSYCHIATRIC: Depressed mood and affect. Urinary Catheter Management Indwelling Urethral Catheter: Cath placed during this visit: yes, but has since been removed by the nurse Insertion date: 02/26/18 Insertion time: 16:00 Removal date: 02/26/18 Removal time: 15:30 Results Labs CBC & Chem 7: 03/10/18 05:30 03/10/18 05:30 Assessment and Plan (1) Acute renal failure: Code(s): N17.9 - Acute kidney failure, unspecified Status: Acute (2) Chronic kidney disease: Code(s): N18.9 - Chronic kidney disease, unspecified Status: Acute (3) Shock: Code(s): R57.9 - Shock, unspecified Status: Acute (4) BMI 50.0-59.9, adult: Code(s): Z68.43 - Body mass index (BMI) 50-59.9, adult Status: Chronic (5) 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: Code(s): E11.9 - Type 2 diabetes mellitus without complications Status: Chronic Plan Neuro/Psych: Acute toxic metabolic encephalopathy History of TIA Depression/anxiety Chronic peripheral neuropathy secondary to diabetes mellitus Dementia disorder NOS Holding gabapentin 600 mg 3 times daily for peripheral neuropathy. Resume at 200 mg 3 times daily 03/04 Holding scheduled morphine 15 mg every 12 hours for chronic pain Holding duloxetine 20 mg daily for depression. Resume clinically indicated Resume memantine 5 mg at night for dementia Acetaminophen 650 mg every 6 hours as needed fever Hydrocodone/acetaminophen 5/325 1 tablet every 4 hours as needed pain 1 through 5 Morphine sulfate 2 mg IV every 2 hours as needed pain [address] brain revealed no acute intracranial findings 02/26. Ammonia level 20 EEG 02/28 revealed mild slowing. No epileptic activity. MR brain 1211 revealed no acute intracranial findings See musculoskeletal MR C-spine She neurology consult. Thiamine, B12 and MMA pending. Consult psych as patient with worsening depression CV: Sinus bradycardia -resolved A flutter rate controlled. Paroxysmal atrial fibrillation currently normal sinus rhythm History of essential hypertension HyperLipidemia coronary artery disease Congestive heart failure unknown etiology Receive 0.5 mg atropine in route. Received 1 L normal saline crystalloid bolus. Dopamine drip is off Holding atorvastatin 20 mg a day for dyslipidemia. Resume clinically indicated Holding amiodarone 200 mg daily for atrial fibrillation with hyperkalemia. Resume clinically indicated. Holding amlodipine 5 mg daily metoprolol tartrate 205mg twice daily for hypertension resume clinically indicated Holding olmesartan 20 mg daily with hyper kalemia and acute kidney injury. Initial troponin 0 0.02. Trend was negative. 02/28 2D echocardiogram -EF 55-60%. LVH. Moderate MR. PA P 58 mmHg Consult his cardiology Dr Booth , seen by his partener Dr Watson apprreciate recs Monitor on telemetry Patient is on lasix drip , albumin for diuresis Monitor Kidney function Monitor VS S\DC heparin and start eliquis per renal dose Resp: History of obstructive sleep apnea Right greater than left pleural effusion/exudative by light's criteria Acute respiratory failure Currently on PRVC ventilation Head of bed at 30 degrees Ventilator bundle Albuterol/ipratropium aerosols every 4 hours with albuterol aerosols every 2 as needed dyspnea Will likely need CPAP once extubated Spontaneous breathing trials and clinically indicated CT thoracentesis ordered right pleural effusion. -[address] chest revealed right greater than left pleural effusion. Anasarca.. Atelectasis right lower lobe CPAP trial today to extubate. Extubated 03/03 The patient has been on/off BIPAP Consult pulm , ff GI: Elevated transaminases Elevated alkaline phosphatase left liver mass 5 cm Hypoalbuminemia Monitor transaminases. Check hepatitis panel was negative Tube feeds on hold for possible extubation pantoprazole for GI prophylaxis DC sodium/senna 1 tablet twice daily for bowel regimen. Avoid hepatotoxic medications Follow-up on CT abdomen/pelvis revealed small left liver mass. Follow-up MRI of liver in future : BPH Holding alfazosin 10 mg daily for BPH while hypotensive on vasopressors Maintain Orozco catheter Endo: 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 Hypothyroidism with elevated TSH On levothyroxine 50 mcg daily. Continue TSH was 5.02 Sliding scale insulin with Accu-Cheks to maintain euglycemia every 6 hours/ aspart insulin low regimen On sliding scale lispro insulin at home Renal: Acute kidney injury in the setting of chronic kidney disease stage IIIb Maintain Orozco catheter Monitor urine output Accurate I's and O's Check urine eosinophils, sodium and creatinine Will receive hemodialysis 12/27. Also received 02/27. Per nephrology's request. Dr. Leal has been consulted. Defer dialysis to him in future -2500 cc 02/27 950 cc urine output past 24 hours 03/07/18 noted with low BP, received 500 cc NS, BP is better controlled however patient wit sob. CXR reviewed appears with fluid overload. RReceived albumin and started on lasix, precaution as patient with low BP Heme: Leukocytosis Normocytic anemia Chronic rivaroxaban use - Elevated INR/PTT Monitor CBC daily. Follow trends. No indication for transfusion of blood products at this time. Resume baseline anticoagulant after CT head ID: Capnocytophaga sputum positive Blood cultures x2, and UA 02/26 no growth Sputum revealed gram-positive cocci in pairs and clusters 02/27. 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 Received acute hemodialysis today which will correct the underlying electrolyte derangement Potassium currently within normal limits. Recheck in a.m. Hypokalemia. Monitor and replace. MSK: Morbid obesity with Elevated BMI greater than 50 Bilateral lower extremity heel ulcers Cervical canal stenosis Weight loss encouraged PT evaluate and Wound care evaluate and treat MR C-spine revealed C2/3 ventral cord with LF thickening. Thecal sac 4 mm. Moderate C4/5 C5/6 and C6-7 stenosis. Mild C3/4 and C7/T1 stenosis Access -Right femoral CVL and right femoral arterial CVL day 3 placed the ED by . Discontinued 03/01 -Right IJ dialysis catheter removed Prophylaxis -GI -pantoprazole -DVT -SCD , eliquis Discussed with the patient, ICU nurse. Progress Note: Quality VTE Deep Vein Thrombosis/Pulmonary Embolism Present on Admission: No Procedures Arterial Line Size (Gauge): 20 _ (1) 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 Qualifiers: Chronic kidney disease stage: 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 complication detail: with other kidney complication 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 complication status: with kidney complications 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 ferry terminal supervisor insulin use: with ferry terminal supervisor use 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 macular edema: 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 type: type 2 Diabetic retinopathy severity: Laterality: Proliferative retinopathy type: Qualified Code(s): E11.29 - Type 2 diabetes mellitus with other diabetic kidney complication; Z79.4 - middle or intermediate school principal (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 (2) Acute renal failure Qualifiers: Acute renal failure type: (3) Chronic kidney disease Qualifiers: Chronic kidney disease stage:
[2018-03-10] MEDS: Ascorbic Acid 500 MG Tablet PO SCH ×2 (09:07→21:33)
[2018-03-10] MEDS: Gabapentin 100 MG Capsule PO SCH ×2 (09:07→21:31)
[2018-03-10] MEDS: Amiodarone 200 MG Tablet PO SCH (09:07)
[2018-03-10] MEDS: Potassium Chloride 25 MEQ Effervescent Tablet PO SCH ×2 (09:08→21:29)
[2018-03-10] MEDS: Senna/Docusate Sodium 8.6/50 MG Tablet PO SCH ×2 (09:10→21:32)
[2018-03-10] MEDS: Chlorhexidine 0.12% Oral Kit 15 ML UDC OROPHARYNG SCH ×2 (09:10→21:31)
[2018-03-10] MEDS: Nystatin 100,000 UNITS/GM Powder 15 GM Bottle TOPICAL SCH ×2 (09:10→21:32)
--- NOTE | 2018-03-10 12:14 | P.CONPSY ---
Provisional Diagnosis Admission Date: February 26, 2018 12:16 [place] I.: Major depressive disorder, recurrent, severe, without psychosis, dementia, delirium History of Present Illness Service: critical care Primary Care Provider: Liang Esparza MD Chief Complaint: Acute encephalopathy, acute kidney injury with hyperkalemia History of Present Illness: The patient is a 72-year-old man, domiciled in [place] in [facility], he is , 4 adult kids, retired, with a psychiatric history of depression, dementia, no previous psychiatric admissions, no pre-suicide attempts, the patient has been treated in the past with Lexapro, now in the critical care unit with Cymbalta 20 mg, Namenda 5 mg, with medical history of morbid obesity, coronary artery disease, hypertension, hyperlipidemia, diabetes mellitus, atrial fibrillation currently rate controlled, hypothyroidism, peripheral neuropathy, chronic kidney disease stage III-IV, chronic opiate use and chronic anticoagulation with rivaroxaban. He was originally sent to [facility] emergency department the chief diagnosis of acute altered mental status, but EMS was called and found the patient have initial heart rate in the 30s. He was admitted also with AMS, acute metabolic encephalopathy CT brain revealed no acute intracranial findings 02/26. EEG 02/28 revealed mild slowing. No epileptic activity. MR brain revealed no acute intracranial findings. Consulted to psychiatry to address symptomatology of depression. My psychiatric evaluation today the patient seems to be objectively depressed. He reports to be in to feel very depressed. He says that he has lack of motivation , he feels very difficult to engage in conversations and in reality. The patient is oriented in person, but just partially oriented in time and place. However, he tells me that he has been here for several weeks now, holidays are close, and he is still here. He says that he misses his medication for depression. He says that he was doing very well and Lexapro, he does not remember the dose. The patient reports poor energy, difficulty sleeping at night. He denies suicidal and homicidal ideation. He denies visual and auditory hallucinations. PPHx: with a psychiatric history of depression, dementia, no previous psychiatric admissions, no pre-suicide attempts, the patient has been treated in the past with Lexapro, now in the critical care unit with Cymbalta 20 mg, Namenda 5 mg, PMHx: with medical history of morbid obesity, coronary artery disease, hypertension, hyperlipidemia, diabetes mellitus, atrial fibrillation currently rate controlled, hypothyroidism, peripheral neuropathy, chronic kidney disease stage III-IV, chronic opiate use and chronic anticoagulation with rivaroxaban Substance Hx: Denies the use of alcohol and illegal drug Family Hx: No family psychiatric history Social Hx: man, born and raised in [place], domiciled in [place] in [facility], he is , 4 adult kids, retired, 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 Review of Systems All other systems reviewed negative except as stated in HPI Neurologic: Reports confusion, Reports memory loss Psychiatric: Reports confusion, Reports depression, Reports hopelessness, Reports mood swings PMFSH - History History Provided By: Medical Record - Medical History Medical History: Medical History (Last Reviewed 03/08/18 @ 13:44 by Jesusita Gamez) Acute kidney failure Clostridium difficile carrier Diarrhea - Surgical History Surgical History: Surgical History (Last Reviewed 03/08/18 @ 13:44 by Jesusita Gamez) History of cardiac catheterization History of tonsillectomy and adenoidectomy Status post left foot surgery - Family History Family History: Family History (Last Reviewed 03/03/18 @ 14:46 by Margie Mosqueda) Other Family history of coronary artery disease Family history of stroke - Tobacco History Second Hand Smoke Exposure: No Tobacco Use In Past 30 Days: No Smoking Status: Never smoker - Alcohol History How Often Do You Have a Drink Containing Alcohol: Never - Substance Use History Substance History: No History of Abuse - Travel History Recent Travel in the [place] Within the Last 8 Weeks: No Recent Travel Out of the Country Within the Last 8 Weeks: No - Immunization History Tetanus Immunization: Unable to Assess Hx Influenza Vaccine This Season: No Medications and Allergies Active Medications: Active Medications Acetaminophen (Tylenol) 650 mg PO Q6H PRN PRN Reason: FEVER Last Admin: 03/04/18 17:51 Dose: 650 mg Acetaminophen (Tylenol) 650 mg PO UNSCH PRN PRN Reason: SEE LABEL COMMENTS Hydrocodone Bitart/Acetaminophen ([place] 5/325) 1 tab PO Q4H PRN PRN Reason: Pain 1 through 5 Last Admin: 03/09/18 08:52 Dose: 1 tab Al Hydroxide/Mg Hydroxide (Milk Of Magnesia Liq) 30 ml PO Q12H PRN PRN Reason: Mild Constipation Albuterol (Albuterol Neb (Prn)) 2.5 mg NEB Q2HR NEB PRN PRN Reason: SHORTNESS OF BREATH/WHEEZING Amiodarone HCl (Cordarone) 200 mg PO DAILY [facility] Last Admin: 03/10/18 09:07 Dose: 200 mg Artificial Tears (Tears Naturale Opth Drops) 1 drop EACH EYE Q8H [facility] Last Admin: 03/10/18 06:03 Dose: Not Given Ascorbic Acid (Vitamin C) 500 mg PO BID [facility] Last Admin: 03/10/18 09:07 Dose: 500 mg Atorvastatin Calcium (Lipitor) 20 mg PO HS [facility] Last Admin: 03/09/18 20:28 Dose: 20 mg Bisacodyl (Dulcolax Supp) 10 mg RECTAL DAILY PRN PRN Reason: SEVERE CONSITIPATION Chlorhexidine Gluconate (Peridex 0.12% Oral Kit) 15 ml OROPHARYNG BID@0800, 2000 [facility] Last Admin: 03/10/18 09:10 Dose: Not Given Clonidine HCl (Catapres) 0.1 mg PO UNSCH PRN PRN Reason: SEE LABEL COMMENTS Diphenhydramine HCl (Benadryl) 25 mg PO UNSCH PRN PRN Reason: SEE LABEL COMMENTS Last Admin: 03/04/18 21:52 Dose: 25 mg Duloxetine HCl (Cymbalta) 30 mg PO DAILY [facility] Gabapentin (Neurontin) 200 mg PO BID [facility] Last Admin: 03/10/18 09:07 Dose: 200 mg Gelatin (Gelfoam 12 Mm/7 Mm Topical) 1 foam TOPICAL PRN PRN PRN Reason: help stop bleeding from site Last Admin: 03/05/18 05:08 Dose: 1 foam Gentamicin Sulfate (Gentamicin Inj) 20 mg OTHER WITH DIALYSIS PRN PRN Reason: Dwell Gentamycin Lock Last Admin: 03/03/18 09:16 Dose: 20 mg Heparin Sodium (Porcine) (Heparin Inj) 1,000 units OTHER WITH DIALYSIS PRN PRN Reason: Dwell Heparin to Fill Catheter Last Admin: 03/03/18 09:15 Dose: 1,000 units Heparin Sodium (Porcine) (Heparin Inj) 8,000 units OTHER WITH DIALYSIS PRN PRN Reason: for machine prime Hydralazine HCl (Apresoline Inj) 10 mg IV.PUSH Q1H PRN PRN Reason: SYS BP GREATER THAN 170 MMHG Piperacillin/Tazobactam/Dextrose (Zosyn 2.25 Gm Premix) 50 mls @ 100 mls/hr IV.SIG Q8H [facility] Last Infusion: 03/10/18 07:40 Dose: Infused Propofol (Diprivan 1000 Mg/100 Ml Inj) 1,000 mg in 100 mls @ 5.171 mls/hr IV.CONT TITRATE PRN; Protocol PRN Reason: Per Protocol Albumin Human (Flexbumin 25% Inj) 100 mls @ 60 mls/hr IV.SIG WITH DIALYSIS PRN PRN Reason: hypotension / volume replace Last Infusion: 03/04/18 07:00 Dose: Infused Sodium Chloride (Ns Inj) 1,000 mls @ 0 mls/hr OTHER .Q0M PRN PRN Reason: for prime and rinse back Sodium Chloride (Ns Inj) 1,000 mls @ 200 mls/hr OTHER .Q5H PRN PRN Reason: for dialyzer flush PRN Sodium Chloride (Ns Inj) 1,000 mls @ 0 mls/hr IV.CONT .Q0M PRN PRN Reason: hypotension / volume replace Heparin Sodium/Dextrose (Heparin/D5w 25,000 U/250 Ml) 25,000 unit in 250 mls @ 0 mls/hr IV.CONT TITRATE PRN; Protocol PRN Reason: Per Protocol Last Admin: 03/09/18 20:29 Dose: 1,800 units/hr, 18 mls/hr Furosemide 100 mg/ Sodium (Chloride) 100 mls @ 10 mls/hr IV.CONT .Q10H [facility] Last Admin: 03/10/18 00:16 Dose: 10 mls/hr Lactulose (Lactulose Liq) 30 ml PO DAILY PRN PRN Reason: SEVERE CONSITIPATION Levothyroxine Sodium (Synthroid) 50 mcg PO DAILY@0600 [facility] Last Admin: 03/10/18 06:03 Dose: 50 mcg Mannitol (Mannitol Inj) 12.5 gm IV.PUSH UNSCH PRN PRN Reason: hypotension / volume replace Memantine (Namenda) 10 mg PO QPM [facility] Miscellaneous Medication () 1 each OROPHARYNG 0000,0400,1200,1600 [facility] Last Admin: 03/10/18 05:22 Dose: 1 each Morphine Sulfate (Morphine Inj) 2 mg IV.PUSH Q3H PRN PRN Reason: Pain 6 through 10 Last Admin: 03/08/18 17:23 Dose: 2 mg Multivitamins (Theragran) 1 tab PO DAILY [facility] Last Admin: 03/10/18 09:07 Dose: 1 tab Nitroglycerin (Nitro-Bid 2% Oint) 2 inch TOPICAL Q6HR PRN PRN Reason: SYS BP GREATER THAN 170 MMHG Nitroglycerin (Nitrostat Sl) 0.4 mg SL Q5M PRN PRN Reason: CHEST PAIN Nystatin (Mycostatin Powder) 1 applicatio TOPICAL BID [facility] Last Admin: 03/10/18 09:10 Dose: 1 applicatio Ondansetron HCl (Zofran Inj) 4 mg IV.PUSH Q6H PRN PRN Reason: NAUSEA OR VOMITING Ondansetron HCl (Zofran Inj) 4 mg IV.PUSH UNSCH PRN PRN Reason: NAUSEA OR VOMITING Pantoprazole Sodium (Protonix) 40 mg PO DAILY [facility] Last Admin: 03/10/18 09:07 Dose: 40 mg Potassium Bicarb/Potassium Chloride (K-Lyte Cl Eff) 25 meq PO BID [facility] Last Admin: 03/10/18 09:08 Dose: 25 meq Quetiapine Fumarate (Seroquel) 25 mg PO HS [facility] Senna/Docusate Sodium (Kim-Colace) 1 tab PO BID [facility] Last Admin: 03/10/18 09:10 Dose: Not Given Sennosides (Senokot) 17.2 mg PO Q12H PRN PRN Reason: Moderate Constipation Sodium Chloride (Ns Flush) 2 ml IV.FLUSH BID [facility] Last Admin: 03/10/18 09:08 Dose: 2 ml Sodium Chloride (Ns Flush) 2 ml IV.FLUSH PRN PRN PRN Reason: FLUSH AFTER USING IV ACCESS Sodium Chloride (Ns Flush) 0 ml IV.FLUSH DAILY [facility] Last Admin: 03/10/18 09:10 Dose: 2 ml Sodium Chloride (Ns Flush) 0 ml IV.FLUSH PRN PRN PRN Reason: FLUSH AFTER USING IV ACCESS Sodium Chloride (Ns Flush) 5 ml IV.FLUSH PRN PRN PRN Reason: flush each lumen during HD Tamsulosin HCl (Flomax) 0.4 mg PO DAILY [facility] Last Admin: 03/10/18 09:07 Dose: 0.4 mg Zinc Sulfate (Zinc-220) 220 mg PO DAILY [facility] Last Admin: 03/10/18 09:07 Dose: 220 mg Allergies Allergy/AdvReac Type Severity Reaction Status Date / Time daptomycin Allergy Severe Unverified 11/02/16 23:29 Sulfa (Sulfonamide Allergy Mild RASH Unverified 11/02/16 23:29 Antibiotics) Home Medications Medication Instructions Recorded Confirmed Type Lactobacillus acidophilus 1 tab PO BID 02/26/18 02/26/18 History [Acidophilus] alfuzosin 10 mg PO DAILY 02/26/18 02/26/18 History amino acids-protein hydrolys 30 ml PO DAILY 02/26/18 02/26/18 History [Pro-Stat Sugar Free] amiodarone 200 mg PO DAILY 02/26/18 02/26/18 History amlodipine 5 mg PO DAILY 02/26/18 02/26/18 History ascorbic acid (vitamin C) [Vitamin 500 mg PO BID 02/26/18 02/26/18 History C] atorvastatin 20 mg PO HS 02/26/18 02/26/18 History bisacodyl [Dulcolax (bisacodyl)] 10 mg [place] DAILY PRN 02/26/18 02/26/18 History duloxetine [Cymbalta] 20 mg PO DAILY 02/26/18 02/26/18 History furosemide [Lasix] 20 mg PO BID 02/26/18 02/26/18 History gabapentin 600 mg PO TID 02/26/18 02/26/18 History insulin lispro [Humalog U-100 2 - 10 unit SUBCUT ACHS 02/26/18 02/26/18 History Insulin] levothyroxine 50 mcg PO DAILY 02/26/18 02/26/18 History magnesium hydroxide [Milk of 30 ml PO DIRECTED PRN 02/26/18 02/26/18 History Magnesia] memantine [Namenda] 5 mg PO QPM 02/26/18 02/26/18 History metoprolol tartrate 25 mg PO BID 02/26/18 02/26/18 History morphine [MS Contin] 15 mg PO Q12H 02/26/18 02/26/18 History multivitamin [Tab-A-Lucille] 1 tab PO DAILY 02/26/18 02/26/18 History olmesartan 20 mg PO DAILY 02/26/18 02/26/18 History ondansetron HCl [Zofran] 4 mg PO Q8H PRN 02/26/18 02/26/18 History ondansetron [Zofran ODT] 4 mg PO Q6H PRN 02/26/18 02/26/18 History rivaroxaban [Xarelto] 20 mg PO QPM 02/26/18 02/26/18 History sennosides-docusate sodium 2 tab PO BID PRN 02/26/18 02/26/18 History sodium phosphates [Fleet Enema] 118 ml [place] DIRECTED PRN 02/26/18 02/26/18 History zinc sulfate 220 mg PO DAILY 02/26/18 02/26/18 History Exam Vital signs: Vital Signs 03/09/18 12:30 03/09/18 13:00 03/09/18 13:30 Temperature Pulse Rate 91 H 89 88 Respiratory Rate 21 20 26 H Blood Pressure 134/61 140/62 140/62 Pulse Oximetry 95 96 95 03/09/18 14:00 03/09/18 14:30 03/09/18 15:00 Temperature Pulse Rate 91 H 89 90 Respiratory Rate 24 25 H 20 Blood Pressure 135/74 132/60 136/60 Pulse Oximetry 95 96 96 03/09/18 15:30 03/09/18 16:00 03/09/18 16:30 Temperature 98.0 F Pulse Rate 88 87 84 Respiratory Rate 25 H 24 16 Blood Pressure 135/62 137/74 148/65 H Pulse Oximetry 94 L 95 97 03/09/18 17:00 03/09/18 17:01 03/09/18 17:30 Temperature Pulse Rate 85 86 83 Respiratory Rate 15 14 15 Blood Pressure 154/63 H 141/56 H Pulse Oximetry 97 97 97 03/09/18 18:00 03/09/18 18:31 03/09/18 19:00 Temperature Pulse Rate 84 84 84 Respiratory Rate 12 21 14 Blood Pressure 156/63 H 145/63 H 146/64 H Pulse Oximetry 98 98 98 03/09/18 19:30 03/09/18 20:00 03/09/18 20:14 Temperature 98.7 F Pulse Rate 84 84 Respiratory Rate 14 15 Blood Pressure 141/63 H 127/82 Pulse Oximetry 98 97 98 03/09/18 20:30 03/09/18 21:00 03/09/18 21:30 Temperature Pulse Rate 85 84 85 Respiratory Rate 21 22 15 Blood Pressure 136/63 146/62 H 138/84 Pulse Oximetry 95 96 96 03/09/18 22:00 03/09/18 22:30 03/09/18 23:00 Temperature Pulse Rate 85 85 86 Respiratory Rate 15 16 25 H Blood Pressure 133/64 122/59 L 124/62 Pulse Oximetry 96 97 97 03/09/18 23:30 03/10/18 00:00 03/10/18 00:30 Temperature Pulse Rate 87 89 92 H Respiratory Rate 22 20 24 Blood Pressure 134/60 112/70 110/53 L Pulse Oximetry 98 97 97 03/10/18 01:00 03/10/18 01:23 03/10/18 01:30 Temperature Pulse Rate 89 87 Respiratory Rate 16 15 Blood Pressure 117/55 L 112/66 Pulse Oximetry 97 97 99 03/10/18 02:00 03/10/18 02:30 03/10/18 04:00 Temperature Pulse Rate 88 89 87 Respiratory Rate 44 H 23 16 Blood Pressure 120/59 L 126/56 L Pulse Oximetry 96 96 03/10/18 04:14 03/10/18 06:00 Temperature Pulse Rate 91 H Respiratory Rate Blood Pressure Pulse Oximetry 97 Intake & Output 03/09/18 03/10/18 03/10/18 18:59 06:59 18:59 Intake Total 750 / 750 950 / 950 50 / 50 Output Total 950 / 950 1650 / 1650 Balance -200 / -200 -700 / -700 50 / 50 Weight 158.2 kg Intake: IV 150 / 150 400 / 400 50 / 50 Lasix Inj 100 MG In NS Inj 90 100 / 100 100 / 100 ML @ 10 mls/hr IV.CONT .Q10H [facility] Rx#:[id number] Heparin/D5W 25,000 U/250 mL 25, 250 / 250 000 unit In 250 ml @ Per Protocol IV.CONT TITRATE PRN Rx #:[id number] Zosyn 2.25 GM Premix 50 ML @ 50 / 50 50 / 50 50 / 50 100 mls/hr IV.SIG Q8H [facility] Rx#: [id number] Oral 600 / 600 550 / 550 Output: Urine Amount (Catheter) 950 / 950 1650 / 1650 Indwelling Urethral Catheter 950 / 950 1650 / 1650 Other: Date of Last Bowel Movement 03/07/18 03/07/18 03/10/18 # Incontinent Bowel Movements 1 - Constitutional no acute distress - Routine HEENT Exam Head: Present: normocephalic, atraumatic Eye: Present: EOMI, proptosis Mental Status Examination Appearance: Appropriate Consciousness: Alert Orientation: x4 Motor Activity: Normal gait Speech: Unremarkable Language: Adequate Fund of Knowledge: Adequate Attention and Concentration: Adequate Memory: Unremarkable Mood: Appropriate, Sad Affect: Appropriate, Sad Thought Process & Associations: Intact Thought Content: Appropriate Hallucination Type: None Delusion Type: None Suicidal Ideation: No Suicidal Plan: No Suicidal Intention: No Homicidal Ideation: No Homicidal Plan: No Homicidal Intention: No Insight: Adequate Judgment: Adequate Assessment and Plan - Assessment (1) Depression Code(s): F32.9 - Major depressive disorder, single episode, unspecified Status : Chronic - Plan Plan: On my psychiatric evaluation today the patient presents with symptoms of significant depression, he reports hopelessness, helplessness, decreased appetite and his sleep at night, lack of enjoyment, feeling disinterested, but denies suicidal ideation. The patient is just partially oriented, oriented in person, he knows he is in the hospital, he knows that he is close to [place]. There is some level of confusion and attention deficit. Patient is insightful about his depression and dementia, presents as a protective factor his taoist believes and family support. He has a history of depression, has been treated with Lexapro in the past. Cymbalta has been started during this hospitalization. I will increase the Cymbalta to 30 mg now. We will increase the Namenda to 10 mg. We will add Seroquel 25 mg at bedtime to help with mood stabilization and with her sleep. Patient does not meet criteria for involuntary psychiatric admission. Support, motivational psych education provided. We will follow-up Justification for Continued Inpatient Stay: No admission is indicated at this moment. (1) Depression Qualifiers: Depression Type: major depressive disorder Major depression recurrence: recurrent Active/Remission status: remission status unspecified Qualified Code (s): F33.9 - Major depressive disorder, recurrent, unspecified
[2018-03-10] MEDS: Heparin Drip 25,000 UNIT/250 ML BAG IV.CONT PRN (12:56)
--- NOTE | 2018-03-10 13:55 | P.PNCA ---
Subjective Interval history: Patient is very lethargic today. Patient denies any palpitations or dizziness. Patient does complain of atypical chest pain that increases with palpation. Patient also complains of mild SOB and edema. Medications and Allergies Allergies Allergy/AdvReac Type Severity Reaction Status Date / Time daptomycin Allergy Severe Unverified 11/02/16 23:29 Sulfa (Sulfonamide Allergy Mild RASH Unverified 11/02/16 23:29 Antibiotics) Home Medications Medication Instructions Recorded Confirmed Type Lactobacillus acidophilus 1 tab PO BID 02/26/18 02/26/18 History [Acidophilus] alfuzosin 10 mg PO DAILY 02/26/18 02/26/18 History amino acids-protein hydrolys 30 ml PO DAILY 02/26/18 02/26/18 History [Pro-Stat Sugar Free] amiodarone 200 mg PO DAILY 02/26/18 02/26/18 History amlodipine 5 mg PO DAILY 02/26/18 02/26/18 History ascorbic acid (vitamin C) [Vitamin 500 mg PO BID 02/26/18 02/26/18 History C] atorvastatin 20 mg PO HS 02/26/18 02/26/18 History bisacodyl [Dulcolax (bisacodyl)] 10 mg CO DAILY PRN 02/26/18 02/26/18 History duloxetine [Cymbalta] 20 mg PO DAILY 02/26/18 02/26/18 History furosemide [Lasix] 20 mg PO BID 02/26/18 02/26/18 History gabapentin 600 mg PO TID 02/26/18 02/26/18 History insulin lispro [Humalog U-100 2 - 10 unit SUBCUT ACHS 02/26/18 02/26/18 History Insulin] levothyroxine 50 mcg PO DAILY 02/26/18 02/26/18 History magnesium hydroxide [Milk of 30 ml PO DIRECTED PRN 02/26/18 02/26/18 History Magnesia] memantine [Namenda] 5 mg PO QPM 02/26/18 02/26/18 History metoprolol tartrate 25 mg PO BID 02/26/18 02/26/18 History morphine [MS Contin] 15 mg PO Q12H 02/26/18 02/26/18 History multivitamin [Tab-A-Lucille] 1 tab PO DAILY 02/26/18 02/26/18 History olmesartan 20 mg PO DAILY 02/26/18 02/26/18 History ondansetron HCl [Zofran] 4 mg PO Q8H PRN 02/26/18 02/26/18 History ondansetron [Zofran ODT] 4 mg PO Q6H PRN 02/26/18 02/26/18 History rivaroxaban [Xarelto] 20 mg PO QPM 02/26/18 02/26/18 History sennosides-docusate sodium 2 tab PO BID PRN 02/26/18 02/26/18 History sodium phosphates [Fleet Enema] 118 ml CO DIRECTED PRN 02/26/18 02/26/18 History zinc sulfate 220 mg PO DAILY 02/26/18 02/26/18 History Active Medications: Active Medications Acetaminophen (Tylenol) 650 mg PO Q6H PRN PRN Reason: FEVER Last Admin: 03/04/18 17:51 Dose: 650 mg Acetaminophen (Tylenol) 650 mg PO UNSCH PRN PRN Reason: SEE LABEL COMMENTS Hydrocodone Bitart/Acetaminophen ([place] 5/325) 1 tab PO Q4H PRN PRN Reason: Pain 1 through 5 Last Admin: 03/09/18 08:52 Dose: 1 tab Al Hydroxide/Mg Hydroxide (Milk Of Magnjuan luis Liq) 30 ml PO Q12H PRN PRN Reason: Mild Constipation Albuterol (Albuterol Neb (Prn)) 2.5 mg NEB Q2HR NEB PRN PRN Reason: SHORTNESS OF BREATH/WHEEZING Amiodarone HCl (Cordarone) 200 mg PO DAILY [facility] Last Admin: 03/10/18 09:07 Dose: 200 mg Artificial Tears (Tears Naturale Opth Drops) 1 drop EACH EYE Q8H [facility] Last Admin: 03/10/18 06:03 Dose: Not Given Ascorbic Acid (Vitamin C) 500 mg PO BID [facility] Last Admin: 03/10/18 09:07 Dose: 500 mg Atorvastatin Calcium (Lipitor) 20 mg PO HS [facility] Last Admin: 03/09/18 20:28 Dose: 20 mg Bisacodyl (Dulcolax Supp) 10 mg RECTAL DAILY PRN PRN Reason: SEVERE CONSITIPATION Chlorhexidine Gluconate (Peridex 0.12% Oral Kit) 15 ml OROPHARYNG BID@0800, 2000 [facility] Last Admin: 03/10/18 09:10 Dose: Not Given Clonidine HCl (Catapres) 0.1 mg PO UNSCH PRN PRN Reason: SEE LABEL COMMENTS Diphenhydramine HCl (Benadryl) 25 mg PO UNSCH PRN PRN Reason: SEE LABEL COMMENTS Last Admin: 03/04/18 21:52 Dose: 25 mg Duloxetine HCl (Cymbalta) 30 mg PO DAILY [facility] Gabapentin (Neurontin) 200 mg PO BID [facility] Last Admin: 03/10/18 09:07 Dose: 200 mg Gelatin (Gelfoam 12 Mm/7 Mm Topical) 1 foam TOPICAL PRN PRN PRN Reason: help stop bleeding from site Last Admin: 03/05/18 05:08 Dose: 1 foam Gentamicin Sulfate (Gentamicin Inj) 20 mg OTHER WITH DIALYSIS PRN PRN Reason: Dwell Gentamycin Lock Last Admin: 03/03/18 09:16 Dose: 20 mg Heparin Sodium (Porcine) (Heparin Inj) 1,000 units OTHER WITH DIALYSIS PRN PRN Reason: Dwell Heparin to Fill Catheter Last Admin: 03/03/18 09:15 Dose: 1,000 units Heparin Sodium (Porcine) (Heparin Inj) 8,000 units OTHER WITH DIALYSIS PRN PRN Reason: for machine prime Hydralazine HCl (Apresoline Inj) 10 mg IV.PUSH Q1H PRN PRN Reason: SYS BP GREATER THAN 170 MMHG Piperacillin/Tazobactam/Dextrose (Zosyn 2.25 Gm Premix) 50 mls @ 100 mls/hr IV.SIG Q8H [facility] Last Admin: 03/10/18 12:59 Dose: 100 mls/hr Propofol (Diprivan 1000 Mg/100 Ml Inj) 1,000 mg in 100 mls @ 5.171 mls/hr IV.CONT TITRATE PRN; Protocol PRN Reason: Per Protocol Albumin Human (Flexbumin 25% Inj) 100 mls @ 60 mls/hr IV.SIG WITH DIALYSIS PRN PRN Reason: hypotension / volume replace Last Infusion: 03/04/18 07:00 Dose: Infused Sodium Chloride (Ns Inj) 1,000 mls @ 0 mls/hr OTHER .Q0M PRN PRN Reason: for prime and rinse back Sodium Chloride (Ns Inj) 1,000 mls @ 200 mls/hr OTHER .Q5H PRN PRN Reason: for dialyzer flush PRN Sodium Chloride (Ns Inj) 1,000 mls @ 0 mls/hr IV.CONT .Q0M PRN PRN Reason: hypotension / volume replace Heparin Sodium/Dextrose (Heparin/D5w 25,000 U/250 Ml) 25,000 unit in 250 mls @ 0 mls/hr IV.CONT TITRATE PRN; Protocol PRN Reason: Per Protocol Last Admin: 03/10/18 12:56 Dose: 1,800 units/hr, 18 mls/hr Furosemide 100 mg/ Sodium (Chloride) 100 mls @ 10 mls/hr IV.CONT .Q10H [facility] Last Admin: 03/10/18 12:57 Dose: 10 mls/hr Lactulose (Lactulose Liq) 30 ml PO DAILY PRN PRN Reason: SEVERE CONSITIPATION Levothyroxine Sodium (Synthroid) 50 mcg PO DAILY@0600 [facility] Last Admin: 03/10/18 06:03 Dose: 50 mcg Mannitol (Mannitol Inj) 12.5 gm IV.PUSH UNSCH PRN PRN Reason: hypotension / volume replace Memantine (Namenda) 10 mg PO QPM [facility] Miscellaneous Medication () 1 each OROPHARYNG 0000,0400,1200,1600 [facility] Last Admin: 03/10/18 12:59 Dose: 1 each Morphine Sulfate (Morphine Inj) 2 mg IV.PUSH Q3H PRN PRN Reason: Pain 6 through 10 Last Admin: 03/08/18 17:23 Dose: 2 mg Multivitamins (Theragran) 1 tab PO DAILY [facility] Last Admin: 03/10/18 09:07 Dose: 1 tab Nitroglycerin (Nitro-Bid 2% Oint) 2 inch TOPICAL Q6HR PRN PRN Reason: SYS BP GREATER THAN 170 MMHG Nitroglycerin (Nitrostat Sl) 0.4 mg SL Q5M PRN PRN Reason: CHEST PAIN Nystatin (Mycostatin Powder) 1 applicatio TOPICAL BID [facility] Last Admin: 03/10/18 09:10 Dose: 1 applicatio Ondansetron HCl (Zofran Inj) 4 mg IV.PUSH Q6H PRN PRN Reason: NAUSEA OR VOMITING Ondansetron HCl (Zofran Inj) 4 mg IV.PUSH UNSCH PRN PRN Reason: NAUSEA OR VOMITING Pantoprazole Sodium (Protonix) 40 mg PO DAILY [facility] Last Admin: 12/21/18 09:07 Dose: 40 mg Potassium Bicarb/Potassium Chloride (K-Lyte Cl Eff) 25 meq PO BID [facility] Last Admin: 03/10/18 09:08 Dose: 25 meq Quetiapine Fumarate (Seroquel) 25 mg PO [facility] Senna/Docusate Sodium (Kim-Colace) 1 tab PO BID [facility] Last Admin: 03/10/18 09:10 Dose: Not Given Sennosides (Senokot) 17.2 mg PO Q12H PRN PRN Reason: Moderate Constipation Sodium Chloride (Ns Flush) 2 ml IV.FLUSH BID [facility] Last Admin: 03/10/18 09:08 Dose: 2 ml Sodium Chloride (Ns Flush) 2 ml IV.FLUSH PRN PRN PRN Reason: FLUSH AFTER USING IV ACCESS Sodium Chloride (Ns Flush) 0 ml IV.FLUSH DAILY [facility] Last Admin: 03/10/18 09:10 Dose: 2 ml Sodium Chloride (Ns Flush) 0 ml IV.FLUSH PRN PRN PRN Reason: FLUSH AFTER USING IV ACCESS Sodium Chloride (Ns Flush) 5 ml IV.FLUSH PRN PRN PRN Reason: flush each lumen during HD Tamsulosin HCl (Flomax) 0.4 mg PO DAILY [facility] Last Admin: 03/10/18 09:07 Dose: 0.4 mg Zinc Sulfate (Zinc-220) 220 mg PO DAILY [facility] Last Admin: 03/10/18 09:07 Dose: 220 mg Physical Exam Vital signs: Vital Signs 03/09/18 14:00 03/09/18 14:30 03/09/18 15:00 Temperature Pulse Rate 91 H 89 90 Respiratory Rate 24 25 H 20 Blood Pressure 135/74 132/60 136/60 Pulse Oximetry 95 96 96 03/09/18 15:30 03/09/18 16:00 03/09/18 16:30 Temperature 98.0 F Pulse Rate 88 87 84 Respiratory Rate 25 H 24 16 Blood Pressure 135/62 137/74 148/65 H Pulse Oximetry 94 L 95 97 03/09/18 17:00 03/09/18 17:01 03/09/18 17:30 Temperature Pulse Rate 85 86 83 Respiratory Rate 15 14 15 Blood Pressure 154/63 H 141/56 H Pulse Oximetry 97 97 97 03/09/18 18:00 03/09/18 18:31 03/09/18 19:00 Temperature Pulse Rate 84 84 84 Respiratory Rate 12 21 14 Blood Pressure 156/63 H 145/63 H 146/64 H Pulse Oximetry 98 98 98 03/09/18 19:30 03/09/18 20:00 03/09/18 20:14 Temperature 98.7 F Pulse Rate 84 84 Respiratory Rate 14 15 Blood Pressure 141/63 H 127/82 Pulse Oximetry 98 97 98 03/09/18 20:30 03/09/18 21:00 03/09/18 21:30 Temperature Pulse Rate 85 84 85 Respiratory Rate 21 22 15 Blood Pressure 136/63 146/62 H 138/84 Pulse Oximetry 95 96 96 03/09/18 22:00 03/09/18 22:30 03/09/18 23:00 Temperature Pulse Rate 85 85 86 Respiratory Rate 15 16 25 H Blood Pressure 133/64 122/59 L 124/62 Pulse Oximetry 96 97 97 03/09/18 23:30 03/10/18 00:00 03/10/18 00:30 Temperature Pulse Rate 87 89 92 H Respiratory Rate 22 20 24 Blood Pressure 134/60 112/70 110/53 L Pulse Oximetry 98 97 97 03/10/18 01:00 03/10/18 01:23 03/10/18 01:30 Temperature Pulse Rate 89 87 Respiratory Rate 16 15 Blood Pressure 117/55 L 112/66 Pulse Oximetry 97 97 99 03/10/18 02:00 03/10/18 02:30 03/10/18 04:00 Temperature Pulse Rate 88 89 87 Respiratory Rate 44 H 23 16 Blood Pressure 120/59 L 126/56 L Pulse Oximetry 96 96 03/10/18 04:14 03/10/18 06:00 03/10/18 07:23 Temperature Pulse Rate 91 H 93 H Respiratory Rate 26 H Blood Pressure Pulse Oximetry 97 95 03/10/18 07:30 03/10/18 08:00 03/10/18 08:30 Temperature 97.6 F Pulse Rate 92 H 92 H 93 H Respiratory Rate 25 H 28 H 25 H Blood Pressure 148/65 H 138/63 146/63 H Pulse Oximetry 95 95 96 03/10/18 09:00 03/10/18 09:30 03/10/18 10:00 Temperature Pulse Rate 94 H 94 H 93 H Respiratory Rate 29 H 26 H 23 Blood Pressure 135/56 L 126/61 129/60 Pulse Oximetry 96 95 95 03/10/18 10:30 03/10/18 11:00 03/10/18 11:39 Temperature Pulse Rate 93 H 92 H 91 H Respiratory Rate 26 H 27 H 19 Blood Pressure 119/58 L 145/58 H 128/67 Pulse Oximetry 95 95 95 03/10/18 12:00 03/10/18 12:30 03/10/18 13:00 Temperature 97.4 F L Pulse Rate 90 90 90 Respiratory Rate 24 27 H 23 Blood Pressure 131/62 128/58 L 123/53 L Pulse Oximetry 96 96 97 03/10/18 13:30 Temperature Pulse Rate 89 Respiratory Rate 25 H Blood Pressure 135/58 L Pulse Oximetry 96 Intake & Output 03/09/18 03/10/18 03/10/18 18:59 06:59 18:59 Intake Total 750 / 750 950 / 950 400 / 400 Output Total 950 / 950 1650 / 1650 Balance -200 / -200 -700 / -700 400 / 400 Weight 158.2 kg Intake: IV 150 / 150 400 / 400 400 / 400 Lasix Inj 100 MG In NS Inj 90 100 / 100 100 / 100 100 / 100 ML @ 10 mls/hr IV.CONT .Q10H [facility] Rx#:[id number] Heparin/D5W 25,000 U/250 mL 25, 250 / 250 250 / 250 000 unit In 250 ml @ Per Protocol IV.CONT TITRATE PRN Rx #:[id number] Zosyn 2.25 GM Premix 50 ML @ 50 / 50 50 / 50 50 / 50 100 mls/hr IV.SIG Q8H [facility] Rx#: [id number] Oral 600 / 600 550 / 550 Output: Urine Amount (Catheter) 950 / 950 1650 / 1650 Indwelling Urethral Catheter 950 / 950 1650 / 1650 Other: Date of Last Bowel Movement 03/07/18 03/07/18 03/10/18 # Incontinent Bowel Movements 1 - Constitutional mild distress - Routine HEENT Exam Head: Present: normocephalic Eye: Present: PERRL ENT: Present: mucous membranes moist - Routine Neck Exam Present: supple - Routine Respiratory Exam Present: decreased breath sounds - Routine Cardiovascular Exam Present: S1, S2, irregular rhythm. Absent: murmur, gallop, rubs - Routine Abdominal Exam Present: normoactive bowel sounds - Routine Extremities Exam Present: edema, pulses intact, normal capillary refill. Absent: cyanosis, clubbing - Routine Skin Exam Present: intact - Routine Neurological Exam Present: moving all extremities - Detailed Neurological Exam: Coma Scale Eye Opening: To sound Verbal Response: Confused Motor Response: Obey commands Isela Coma Scale Total: 13 - Routine Psychiatric Exam Present: unable to assess - Urinary Catheter Management Indwelling Urethral Catheter Cath placed during this visit: yes, but has since been removed by the nurse Reason for continuing: Chronic Urinary Retention Insertion date: 02/26/18 Insertion time: 16:00 Removal date: 02/26/18 Removal time: 15:30 Results 03/10/18 05:30 03/10/18 05:30 Cardiac Enzymes 03/09/18 Range/Units 10:27 AST 15 (15-37) U/L Coagulation 03/09/18 Range/Units 11:35 APTT 66.7 H (23.4-31.7) sec CBC 03/09/18 03/10/18 Range/Units 10:27 05:30 WBC 15.2 H 15.0 H (4.0-11.0) th/mm3 RBC 3.05 L 3.02 L (4.50-5.90) mil/mm3 Hgb 8.7 L 8.8 L (13.0-17.0) gm/dL Hct 26.9 L 26.0 L (39.0-51.0) % Plt Count 211 214 (150-450) th/mm3 Neut # (Auto) 12.8 H 12.6 H (1.8-7.7) th/mm3 Lymph # (Auto) 1.1 1.0 (1.0-4.8) th/mm3 Stewart # (Auto) 0.8 0.9 (0.0-0.9) th/mm3 Eos # (Auto) 0.4 0.4 (0.0-0.4) th/mm3 Baso # (Auto) 0.1 0.1 (0.0-0.2) th/mm3 Comprehensive Metabolic Panel 03/09/18 03/10/18 Range/Units 10:27 05:30 Sodium 134 L 136 (136-145) meq/L Potassium 4.0 3.4 L (3.5-5.1) meq/L Chloride 100 97 L (98-107) meq/L Carbon Dioxide 23.5 26.8 (21.0-32.0) meq/L BUN 18 19 H (7-18) mg/dL Creatinine 2.77 H 2.85 H (0.60-1.30) mg/dL Calcium 8.0 L 8.5 (8.5-10.1) mg/dL AST 15 (15-37) U/L ALT 20 (12-78) U/L Alkaline Phosphatase 184 H (45-117) U/L Total Protein 6.7 (6.4-8.2) g/dL Albumin 2.4 L (3.4-5.0) g/dL Intake and Output 03/09/18 03/10/18 03/10/18 22:59 06:59 14:59 Intake Total 900 / 900 700 / 700 400 / 400 Output Total 950 / 950 1650 / 1650 Balance -50 / -50 -950 / -950 400 / 400 Intake: IV 300 / 300 150 / 150 400 / 400 Lasix Inj 100 MG In NS Inj 90 100 / 100 100 / 100 ML @ 10 mls/hr IV.CONT .Q10H [facility] Rx#:[id number] Heparin/D5W 25,000 U/250 mL 25, 250 / 250 250 / 250 000 unit In 250 ml @ Per Protocol IV.CONT TITRATE PRN Rx #:[id number] Zosyn 2.25 GM Premix 50 ML @ 50 / 50 50 / 50 50 / 50 100 mls/hr IV.SIG Q8H [facility] Rx#: [id number] Oral 600 / 600 550 / 550 Output: Urine Amount (Catheter) 950 / 950 1650 / 1650 Indwelling Urethral Catheter 950 / 950 1650 / 1650 Other: Date of Last Bowel Movement 03/07/18 03/07/18 03/10/18 # Incontinent Bowel Movements 1 Weight 158.2 kg Assessment and Plan - Assessment (1) CHF (congestive heart failure) Code(s): I50.9 - Heart failure, unspecified Status: Acute (2) Atrial flutter Code(s): I48.92 - Unspecified atrial flutter Status: Acute (3) Obstructive sleep apnea Code(s): G47.33 - Obstructive sleep apnea (adult) (pediatric) Status: Chronic (4) BMI 50.0-59.9, adult Code(s): Z68.43 - Body mass index (BMI) 50-59.9, adult Status: Chronic (5) Coronary artery disease Code(s): I25.10 - Atherosclerotic heart disease of [place] coronary artery without angina pectoris Status: Chronic (6) 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 Code(s): E11.9 - Type 2 diabetes mellitus without complications Status: Chronic (7) History of essential hypertension Code(s): Z86.79 - Personal history of other diseases of the circulatory system Status: Chronic (8) Hyperlipidemia Code(s): E78.5 - Hyperlipidemia, unspecified Status: Chronic (9) Chronic kidney disease Code(s): N18.9 - Chronic kidney disease, unspecified Status: Acute (10) Depression Code(s): F32.9 - Major depressive disorder, single episode, unspecified Status : Chronic - Plan Patient remains in chronic atrial flutter with controlled VR, we will continue amio as originally prescribed by Dr. Booth, his primary hash slinger. Nephrology evaluation in progress. Neurology evaluation in progress due to AMS. GFR low, anticoagulation with NOAC will likely be contraindicated. We will continue to monitor the patient during his hospitalization. Patient to follow up with his primary hash slinger, Dr. Booth, after discharge from the hospital. - Attending Attestation Patient seen and examined. I reviewed and agree with the evaluation and plan as presented. Continue rate control of atrial flutter. Nephrology evaluation. Will likely need warfarin for snf anticoagulation. Continue ICU care. Procedures - Arterial Line Size (Gauge): 20 (5) Coronary artery disease Qualifiers: Coronary Disease-Associated Artery/Lesion type: unspecified vessel or lesion type [place] vs. transplanted heart: [place] heart Associated angina: without angina Qualified Code(s): I25.10 - Atherosclerotic heart disease of [place] coronary artery without angina pectoris (6) 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 Qualifiers: 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 type: type 2 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 terminal supervisor insulin use: with terminal supervisor use 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 complication status: with kidney complications 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 complication detail: with other kidney complication Qualified Code(s): E11.29 - Type 2 diabetes mellitus with other diabetic kidney complication; Z79.4 - group home (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 (8) Hyperlipidemia Qualifiers: Hyperlipidemia type: unspecified Qualified Code(s): E78.5 - Hyperlipidemia, unspecified (10) Depression Qualifiers: Depression Type: major depressive disorder Major depression recurrence: recurrent Active/Remission status: remission status unspecified Qualified Code (s): F33.9 - Major depressive disorder, recurrent, unspecified
--- NOTE | 2018-03-10 16:00 | P.PNNP ---
Subjective Interval history: On bipap sleeping. Creatinine stable at 2.8 today, with good urinary output. On lasix gtt. <Hue Miller - Last Filed: 03/10/18 15:55> Physical Exam Vital signs: Vital Signs 03/09/18 16:00 18 16:30 03/09/18 17:00 Temperature 98.0 F Pulse Rate 87 84 85 Respiratory Rate 24 16 15 Blood Pressure 137/74 148/65 H Pulse Oximetry 95 97 97 03/09/18 17:01 03/09/18 17:30 03/09/18 18:00 Temperature Pulse Rate 86 83 84 Respiratory Rate 14 15 12 Blood Pressure 154/63 H 141/56 H 156/63 H Pulse Oximetry 97 97 98 03/09/18 18:31 03/09/18 19:00 03/09/18 19:30 Temperature Pulse Rate 84 84 84 Respiratory Rate 21 14 14 Blood Pressure 145/63 H 146/64 H 141/63 H Pulse Oximetry 98 98 98 03/09/18 20:00 03/09/18 20:14 03/09/18 20:30 Temperature 98.7 F Pulse Rate 84 85 Respiratory Rate 15 21 Blood Pressure 127/82 136/63 Pulse Oximetry 97 98 95 03/09/18 21:00 03/09/18 21:30 03/09/18 22:00 Temperature Pulse Rate 84 85 85 Respiratory Rate 22 15 15 Blood Pressure 146/62 H 138/84 133/64 Pulse Oximetry 96 96 96 03/09/18 22:30 03/09/18 23:00 03/09/18 23:30 Temperature Pulse Rate 85 86 87 Respiratory Rate 16 25 H 22 Blood Pressure 122/59 L 124/62 134/60 Pulse Oximetry 97 97 98 03/10/18 00:00 03/10/18 00:30 03/10/18 01:00 Temperature Pulse Rate 89 92 H 89 Respiratory Rate 20 24 16 Blood Pressure 112/70 110/53 L 117/55 L Pulse Oximetry 97 97 97 03/10/18 01:23 18 01:30 03/10/18 02:00 Temperature Pulse Rate 87 88 Respiratory Rate 15 44 H Blood Pressure 112/66 120/59 L Pulse Oximetry 97 99 96 03/10/18 02:30 03/10/18 04:00 03/10/18 04:14 Temperature Pulse Rate 89 87 Respiratory Rate 23 16 Blood Pressure 126/56 L Pulse Oximetry 96 97 03/10/18 06:00 03/10/18 07:23 03/10/18 07:30 Temperature Pulse Rate 91 H 93 H 92 H Respiratory Rate 26 H 25 H Blood Pressure 148/65 H Pulse Oximetry 95 95 03/10/18 08:00 03/10/18 08:30 03/10/18 09:00 Temperature 97.6 F Pulse Rate 92 H 93 H 94 H Respiratory Rate 28 H 25 H 29 H Blood Pressure 138/63 146/63 H 135/56 L Pulse Oximetry 95 96 96 03/10/18 09:30 03/10/18 10:00 03/10/18 10:30 Temperature Pulse Rate 94 H 93 H 93 H Respiratory Rate 26 H 23 26 H Blood Pressure 126/61 129/60 119/58 L Pulse Oximetry 95 95 95 03/10/18 11:00 03/10/18 11:39 03/10/18 12:00 Temperature 97.4 F L Pulse Rate 92 H 91 H 90 Respiratory Rate 27 H 19 24 Blood Pressure 145/58 H 128/67 131/62 Pulse Oximetry 95 95 96 03/10/18 12:30 03/10/18 13:00 03/10/18 13:30 Temperature Pulse Rate 90 90 89 Respiratory Rate 27 H 23 25 H Blood Pressure 128/58 L 123/53 L 135/58 L Pulse Oximetry 96 97 96 03/10/18 14:00 03/10/18 14:29 Temperature Pulse Rate 90 Respiratory Rate Blood Pressure Pulse Oximetry 98 Intake & Output 03/09/18 03/10/18 03/10/18 18:59 06:59 18:59 Intake Total 750 / 750 950 / 950 400 / 400 Output Total 950 / 950 1650 / 1650 Balance -200 / -200 -700 / -700 400 / 400 Weight 158.2 kg Intake: IV 150 / 150 400 / 400 400 / 400 Lasix Inj 100 MG In NS Inj 90 100 / 100 100 / 100 100 / 100 ML @ 10 mls/hr IV.CONT .Q10H ANA Rx#:[id number] Heparin/D5W 25,000 U/250 mL 25, 250 / 250 250 / 250 000 unit In 250 ml @ Per Protocol IV.CONT TITRATE PRN Rx #:[id number] Zosyn 2.25 GM Premix 50 ML @ 50 / 50 50 / 50 50 / 50 100 mls/hr IV.SIG Q8H [facility] Rx#: [id number] Oral 600 / 600 550 / 550 Output: Urine Amount (Catheter) 950 / 950 1650 / 1650 Indwelling Urethral Catheter 950 / 950 1650 / 1650 Other: Date of Last Bowel Movement 03/07/18 03/07/18 03/10/18 # Incontinent Bowel Movements 1 Narrative: GENERAL: On Bipap SKIN: Warm and dry. Chronic venous stasis bilateral lower extremities CARDIOVASCULAR: Regular rate and rhythm. S1, S2 no S4. RESPIRATORY: Decreased breath sounds. SOB. On Bipap GASTROINTESTINAL: Abdomen soft, non-tender, obese with large pannus. MUSCULOSKELETAL: Extremities with trace to 1+ bilateral lower extremity edema. NEUROLOGICAL: Moves all 4 extremity spontaneously. PSYCHIATRIC: Depressed mood and affect. - Urinary Catheter Management Indwelling Urethral Catheter Cath placed during this visit: yes, but has since been removed by the nurse Reason for continuing: Chronic Urinary Retention Insertion date: 02/26/18 Insertion time: 16:00 Removal date: 02/26/18 Removal time: 15:30 <Hue Miller - Last Filed: 03/10/18 15:55> Vital signs: Vital Signs 03/09/18 21:30 03/09/18 22:00 03/09/18 22:30 Temperature Pulse Rate 85 85 85 Respiratory Rate 15 15 16 Blood Pressure 138/84 133/64 122/59 L Pulse Oximetry 96 96 97 03/09/18 23:00 03/09/18 23:30 03/10/18 00:00 Temperature Pulse Rate 86 87 89 Respiratory Rate 25 H 22 20 Blood Pressure 124/62 134/60 112/70 Pulse Oximetry 97 98 97 03/10/18 00:30 03/10/18 01:00 03/10/18 01:23 Temperature Pulse Rate 92 H 89 Respiratory Rate 24 16 Blood Pressure 110/53 L 117/55 L Pulse Oximetry 97 97 97 03/10/18 01:30 03/10/18 02:00 03/10/18 02:30 Temperature Pulse Rate 87 88 89 Respiratory Rate 15 44 H 23 Blood Pressure 112/66 120/59 L 126/56 L Pulse Oximetry 99 96 96 03/10/18 04:00 03/10/18 04:14 03/10/18 06:00 Temperature Pulse Rate 87 91 H Respiratory Rate 16 Blood Pressure Pulse Oximetry 97 03/10/18 07:23 03/10/18 07:30 03/10/18 08:00 Temperature 97.6 F Pulse Rate 93 H 92 H 92 H Respiratory Rate 26 H 25 H 28 H Blood Pressure 148/65 H 138/63 Pulse Oximetry 95 95 95 03/10/18 08:30 03/10/18 09:00 03/10/18 09:30 Temperature Pulse Rate 93 H 94 H 94 H Respiratory Rate 25 H 29 H 26 H Blood Pressure 146/63 H 135/56 L 126/61 Pulse Oximetry 96 96 95 03/10/18 10:00 03/10/18 10:30 03/10/18 11:00 Temperature Pulse Rate 93 H 93 H 92 H Respiratory Rate 23 26 H 27 H Blood Pressure 129/60 119/58 L 145/58 H Pulse Oximetry 95 95 95 03/10/18 11:39 03/10/18 12:00 03/10/18 12:30 Temperature 97.4 F L Pulse Rate 91 H 90 90 Respiratory Rate 19 24 27 H Blood Pressure 128/67 131/62 128/58 L Pulse Oximetry 95 96 96 03/10/18 13:00 03/10/18 13:30 03/10/18 14:00 Temperature Pulse Rate 90 89 90 Respiratory Rate 23 25 H Blood Pressure 123/53 L 135/58 L Pulse Oximetry 97 96 03/10/18 14:29 03/10/18 16:00 03/10/18 18:00 Temperature 98.7 F Pulse Rate 89 89 Respiratory Rate 24 Blood Pressure 130/59 L Pulse Oximetry 98 97 Intake & Output 03/10/18 03/10/18 03/11/18 06:59 18:59 06:59 Intake Total 950 / 950 1000 / 1000 Output Total 1650 / 1650 1000 / 1000 Balance -700 / -700 0 / 0 Weight 158.2 kg Intake: IV 400 / 400 500 / 500 Lasix Inj 100 MG In NS Inj 90 100 / 100 200 / 200 ML @ 10 mls/hr IV.CONT .Q10H [facility] Rx#:[id number] Heparin/D5W 25,000 U/250 mL 25, 250 / 250 250 / 250 000 unit In 250 ml @ Per Protocol IV.CONT TITRATE PRN Rx #:[id number] Zosyn 2.25 GM Premix 50 ML @ 50 / 50 50 / 50 100 mls/hr IV.SIG Q8H [facility] Rx#: [id number] Oral 550 / 550 500 / 500 Output: Urine Amount (Catheter) 1650 / 1650 1000 / 1000 Indwelling Urethral Catheter 1650 / 1650 1000 / 1000 Other: Date of Last Bowel Movement 03/07/18 03/10/18 # Incontinent Bowel Movements 1 - Urinary Catheter Management Indwelling Urethral Catheter Cath placed during this visit: no <Laura Brantley - Last Filed: 03/10/18 21:25> Assessment and Plan - Assessment (1) Acute renal failure Code(s): N17.9 - Acute kidney failure, unspecified Status: Acute (2) Chronic kidney disease Code(s): N18.9 - Chronic kidney disease, unspecified Status: Acute (3) Shock Code(s): R57.9 - Shock, unspecified Status: Acute (4) BMI 50.0-59.9, adult Code(s): Z68.43 - Body mass index (BMI) 50-59.9, adult Status: Chronic (5) 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 Code(s): E11.9 - Type 2 diabetes mellitus without complications Status: Chronic Qualifiers: 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 type: type 2 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 Creatinine is stable at 2.8 with good urinary output at 2.6L/24 hours Maintain strict I+O's. Recommend to continue Lasix and album gtts continues to be fluid overloaded Will continue to monitor urinary output and BMP. Avoid nephrotoxins. Labs in AM. <Hue Miller - Last Filed: 03/10/18 15:55> - Assessment (1) Acute renal failure Code(s): N17.9 - Acute kidney failure, unspecified Status: Acute (2) Chronic kidney disease Code(s): N18.9 - Chronic kidney disease, unspecified Status: Acute (3) Shock Code(s): R57.9 - Shock, unspecified Status: Acute (4) BMI 50.0-59.9, adult Code(s): Z68.43 - Body mass index (BMI) 50-59.9, adult Status: Chronic (5) 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 Code(s): E11.9 - Type 2 diabetes mellitus without complications Status: Chronic Qualifiers: 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 type: type 2 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 retirement insulin use: with termite exterminator helper use 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 complication status: with kidney complications 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 complication detail: with other kidney complication Qualified Code(s): E11.29 - Type 2 diabetes mellitus with other diabetic kidney complication; Z79.4 - USP (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 - Plan Patient seen and examined, agree with above. Continue Lasix, edema is improving. Creatinine is stable. <Laura Brantley - Last Filed: 03/10/18 21:25> Procedures - Arterial Line Size (Gauge): 20 <Hue Miller - Last Filed: 03/10/18 15:55>
--- NOTE | 2018-03-10 16:05 | XR ---
EXAM DATE: 03/10/2018 3:51 PM EST AGE/SEX: 72 years / Male INDICATIONS: Shortness of breath, difficulty breathing. CLINICAL DATA: This is the patient's subsequent encounter. Patient reports that signs and symptoms h ave been present for 1 week and indicates a pain score of Nonresponsive. MEDICAL/SURGICAL HISTORY: None. None. COMPARISON: C, CHEST 1V SINGLE AP, 03/07/2018. . FINDINGS: Today's examination is compared to the prior study. There has been no significant change in the overa ll appearance of the heart or lungs compared to the prior exam. There continues to be opacification o michele the lung cruz suggestive of bilateral pleural effusions. The heart size is stable. There is no pneumothorax. The bony structures are stable. CONCLUSION: No significant interval change. Electronically signed by: Joey Dhaliwal MD Board Certified Radiologist 03/10/2018 4:04 PM EST
--- NOTE | 2018-03-10 19:12 | P.PN ---
Subjective Interval history: lethargic today no respiratory distress Physical Exam Vital signs: Vital Signs 03/09/18 19:30 03/09/18 20:00 03/09/18 20:14 Temperature 98.7 F Pulse Rate 84 84 Respiratory Rate 14 15 Blood Pressure 141/63 H 127/82 Pulse Oximetry 98 97 98 03/09/18 20:30 03/09/18 21:00 03/09/18 21:30 Temperature Pulse Rate 85 84 85 Respiratory Rate 21 22 15 Blood Pressure 136/63 146/62 H 138/84 Pulse Oximetry 95 96 96 03/09/18 22:00 03/09/18 22:30 03/09/18 23:00 Temperature Pulse Rate 85 85 86 Respiratory Rate 15 16 25 H Blood Pressure 133/64 122/59 L 124/62 Pulse Oximetry 96 97 97 03/09/18 23:30 03/10/18 00:00 03/10/18 00:30 Temperature Pulse Rate 87 89 92 H Respiratory Rate 22 20 24 Blood Pressure 134/60 112/70 110/53 L Pulse Oximetry 98 97 97 03/10/18 01:00 03/10/18 01:23 03/10/18 01:30 Temperature Pulse Rate 89 87 Respiratory Rate 16 15 Blood Pressure 117/55 L 112/66 Pulse Oximetry 97 97 99 03/10/18 02:00 03/10/18 02:30 03/10/18 04:00 Temperature Pulse Rate 88 89 87 Respiratory Rate 44 H 23 16 Blood Pressure 120/59 L 126/56 L Pulse Oximetry 96 96 03/10/18 04:14 03/10/18 06:00 03/10/18 07:23 Temperature Pulse Rate 91 H 93 H Respiratory Rate 26 H Blood Pressure Pulse Oximetry 97 95 03/10/18 07:30 03/10/18 08:00 03/10/18 08:30 Temperature 97.6 F Pulse Rate 92 H 92 H 93 H Respiratory Rate 25 H 28 H 25 H Blood Pressure 148/65 H 138/63 146/63 H Pulse Oximetry 95 95 96 03/10/18 09:00 03/10/18 09:30 03/10/18 10:00 Temperature Pulse Rate 94 H 94 H 93 H Respiratory Rate 29 H 26 H 23 Blood Pressure 135/56 L 126/61 129/60 Pulse Oximetry 96 95 95 03/10/18 10:30 03/10/18 11:00 03/10/18 11:39 Temperature Pulse Rate 93 H 92 H 91 H Respiratory Rate 26 H 27 H 19 Blood Pressure 119/58 L 145/58 H 128/67 Pulse Oximetry 95 95 95 03/10/18 12:00 03/10/18 12:30 03/10/18 13:00 Temperature 97.4 F L Pulse Rate 90 90 90 Respiratory Rate 24 27 H 23 Blood Pressure 131/62 128/58 L 123/53 L Pulse Oximetry 96 96 97 03/10/18 13:30 03/10/18 14:00 03/10/18 14:29 Temperature Pulse Rate 89 90 Respiratory Rate 25 H Blood Pressure 135/58 L Pulse Oximetry 96 98 03/10/18 16:00 03/10/18 18:00 Temperature 98.7 F Pulse Rate 89 89 Respiratory Rate 24 Blood Pressure 130/59 L Pulse Oximetry 97 Intake & Output 03/10/18 03/10/18 03/11/18 06:59 18:59 06:59 Intake Total 950 / 950 1000 / 1000 Output Total 1650 / 1650 1000 / 1000 Balance -700 / -700 0 / 0 Weight 158.2 kg Intake: IV 400 / 400 500 / 500 Lasix Inj 100 MG In NS Inj 90 100 / 100 200 / 200 ML @ 10 mls/hr IV.CONT .Q10H [facility] Rx#:[id number] Heparin/D5W 25,000 U/250 mL 25, 250 / 250 250 / 250 000 unit In 250 ml @ Per Protocol IV.CONT TITRATE PRN Rx #:[id number] Zosyn 2.25 GM Premix 50 ML @ 50 / 50 50 / 50 100 mls/hr IV.SIG Q8H [facility] Rx#: [id number] Oral 550 / 550 500 / 500 Output: Urine Amount (Catheter) 1650 / 1650 1000 / 1000 Indwelling Urethral Catheter 1650 / 1650 1000 / 1000 Other: Date of Last Bowel Movement 03/07/18 03/10/18 # Incontinent Bowel Movements 1 Narrative: GENERAL: On Bipap SKIN: Warm and dry. Chronic venous stasis bilateral lower extremities CARDIOVASCULAR: Regular rate and rhythm. S1, S2 no S4. RESPIRATORY: Decreased breath sounds. SOB. On Bipap GASTROINTESTINAL: Abdomen soft, non-tender, obese with large pannus. MUSCULOSKELETAL: Extremities with trace to 1+ bilateral lower extremity edema. NEUROLOGICAL: Moves all 4 extremity spontaneously. PSYCHIATRIC: Depressed mood and affect. - Urinary Catheter Management Indwelling Urethral Catheter Cath placed during this visit: yes, but has since been removed by the nurse Reason for continuing: Chronic Urinary Retention Insertion date: 02/26/18 Insertion time: 16:00 Removal date: 02/26/18 Removal time: 15:30 Results - Labs CBC & Chem 7: 03/10/18 05:30 03/10/18 05:30 Laboratory Results - last 24 hr 03/10/18 03/10/18 03/10/18 00:10 05:30 05:30 WBC 15.0 H RBC 3.02 L Hgb 8.8 L Hct 26.0 L MCV 86.4 MCH 29.3 MCHC 33.9 RDW 15.2 Plt Count 214 MPV 9.1 Neut % (Auto) 84.1 H Lymph % (Auto) 6.8 L [place] % (Auto) 5.7 Eos % (Auto) 2.5 Baso % (Auto) 0.9 Neut # (Auto) 12.6 H Lymph # (Auto) 1.0 [place] # (Auto) 0.9 Eos # (Auto) 0.4 Baso # (Auto) 0.1 WBC Differential . Differential Comment Auto diff final APTT Sodium 136 Potassium 3.4 L Chloride 97 L Carbon Dioxide 26.8 Anion Gap 12 BUN 19 H Creatinine 2.85 H Estimated GFR 22 L POC Glucose 142 H Random Glucose 137 H Calcium 8.5 03/10/18 03/10/18 03/10/18 12:57 13:40 18:08 WBC RBC Hgb Hct MCV MCH MCHC RDW Plt Count MPV Neut % (Auto) Lymph % (Auto) [place] % (Auto) Eos % (Auto) Baso % (Auto) Neut # (Auto) Lymph # (Auto) [place] # (Auto) Eos # (Auto) Baso # (Auto) WBC Differential Differential Comment APTT 72.5 H Sodium Potassium Chloride Carbon Dioxide Anion Gap BUN Creatinine Estimated GFR POC Glucose 191 H 142 H Random Glucose Calcium - Imaging Impressions Chest X-Ray 03/10/18 00:00 CONCLUSION: No significant interval change. Assessment and Plan - Plan increased lethargy RESPIRATORY FAILURE RENAL FAILURE SEPSIS MIRTA/CSA cxray unchanged PLAN O2 NEEDED ANTIBIOTICS BIPAP/SLEEP check abg Procedures - Arterial Line Size (Gauge): 20
[2018-03-10 19:53] LABS: ABG Base Excess 3.3 mmol/L (-2-2); ABG PCO2 58 mmHg (38-42); ABG PO2 74 mmHG (61-120)
[2018-03-10] MEDS: QUEtiapine 25 MG Tablet PO SCH (21:33)
[2018-03-11] MEDS: Heparin Drip 25,000 UNIT/250 ML BAG IV.CONT PRN ×2 (02:01→18:13)
[2018-03-11 05:03] LABS: Baso # (Auto) 0.1 th/mm3 (0.0-0.2); Baso % (Auto) 0.5 % (0.0-2.0); Eos # (Auto) 0.4 th/mm3 (0.0-0.4); Eos % (Auto) 3.2 % (0.0-4.0); Hematocrit 24.9 % (39.0-51.0); Hemoglobin 8.4 gm/dL (13.0-17.0); Lymph % (Auto) 8.8 % (9.0-44.0); Mean Corpuscular HGB Conc 33.7 % (32.0-36.0); Mean Corpuscular Hemoglobin 28.8 pg (27.0-34.0); Mean Corpuscular Volume 85.4 fL (80.0-100.0); Mean Platelet Volume 7.9 fL (7.0-11.0); Mono # (Auto) 0.5 th/mm3 (0.0-0.9); Mono % (Auto) 4.6 % (0.0-8.0); Neut # (Auto) 9.6 th/mm3 (1.8-7.7); Neut % (Auto) 82.9 % (16.0-70.0); Platelet Count 204 th/mm3 (150-450); Red Blood Count 2.92 mil/mm3 (4.50-5.90); Red Cell Distribution Width 15.2 % (11.6-17.2); White Blood Count 11.5 th/mm3 (4.0-11.0)
[2018-03-11 05:36] LABS: Calcium 8.5 mg/dL (8.5-10.1); Carbon Dioxide 29.4 meq/L (21.0-32.0); Potassium 3.5 meq/L (3.5-5.1)
[2018-03-11] MEDS: Furosemide Inj 100 MG in Sodium Chlor 0.9% Inj 90 ML IV.CONT SCH ×2 (05:38→13:08)
[2018-03-11] MEDS: Piperacil/Tazo 2.25 GM Premix 50 ML IV.SIG SCH ×3 (05:39→21:00)
[2018-03-11] MEDS: Oral Hygiene Kit OROPHARYNG SCH ×3 (05:39→15:47)
[2018-03-11] MEDS: Levothyroxine 50 MCG Tablet PO SCH (05:39)
[2018-03-11] MEDS: Ascorbic Acid 500 MG Tablet PO SCH ×2 (08:15→20:56)
[2018-03-11] MEDS: Amiodarone 200 MG Tablet PO SCH (08:15)
[2018-03-11] MEDS: Senna/Docusate Sodium 8.6/50 MG Tablet PO SCH ×2 (08:15→20:56)
[2018-03-11] MEDS: Potassium Chloride 25 MEQ Effervescent Tablet PO SCH ×2 (08:15→20:54)
[2018-03-11] MEDS: Nystatin 100,000 UNITS/GM Powder 15 GM Bottle TOPICAL SCH ×2 (08:15→20:54)
[2018-03-11] MEDS: Gabapentin 100 MG Capsule PO SCH ×2 (08:15→20:55)
[2018-03-11] MEDS: Artificial Tears Opth Drops 15 ML Bottle EACH EYE SCH ×2 (08:16→15:47)
[2018-03-11] MEDS: Chlorhexidine 0.12% Oral Kit 15 ML UDC OROPHARYNG SCH ×2 (08:16→20:53)
--- NOTE | 2018-03-11 12:10 | P.PNNP ---
Subjective Interval history: patient tired today Physical Exam Vital signs: Vital Signs 03/10/18 12:30 03/10/18 13:00 03/10/18 13:30 Temperature Pulse Rate 90 90 89 Respiratory Rate 27 H 23 25 H Blood Pressure 128/58 L 123/53 L 135/58 L Pulse Oximetry 96 97 96 03/10/18 14:00 03/10/18 14:29 03/10/18 16:00 Temperature 98.7 F Pulse Rate 90 89 Respiratory Rate 24 Blood Pressure 130/59 L Pulse Oximetry 98 97 03/10/18 18:00 03/10/18 19:48 03/10/18 20:00 Temperature 98.7 F Pulse Rate 89 84 Respiratory Rate 18 Blood Pressure 141/80 H Pulse Oximetry 95 97 03/10/18 22:00 03/11/18 00:00 03/11/18 00:17 Temperature 97.8 F Pulse Rate 82 82 Respiratory Rate 18 Blood Pressure 126/57 L Pulse Oximetry 98 99 03/11/18 02:00 03/11/18 03:57 03/11/18 04:00 Temperature 98.7 F Pulse Rate 80 99 H Respiratory Rate 22 Blood Pressure 110/74 Pulse Oximetry 96 100 03/11/18 06:00 03/11/18 08:00 03/11/18 08:05 Temperature 97.7 F Pulse Rate 87 92 H Respiratory Rate 23 Blood Pressure 133/58 L Pulse Oximetry 97 96 03/11/18 10:00 Temperature Pulse Rate 91 H Respiratory Rate Blood Pressure Pulse Oximetry Intake & Output 03/10/18 03/11/18 03/11/18 18:59 06:59 18:59 Intake Total 1000 / 1000 550 / 550 50 / 50 Output Total 1000 / 1000 1700 / 1700 Balance 0 / 0 -1150 / -1150 50 / 50 Weight 157.2 kg Intake: IV 500 / 500 450 / 450 50 / 50 Lasix Inj 100 MG In NS Inj 90 200 / 200 100 / 100 ML @ 10 mls/hr IV.CONT .Q10H [facility] Rx#:[id number] Heparin/D5W 25,000 U/250 mL 25, 250 / 250 250 / 250 000 unit In 250 ml @ Per Protocol IV.CONT TITRATE PRN Rx #:[id number] Zosyn 2.25 GM Premix 50 ML @ 50 / 50 100 / 100 50 / 50 100 mls/hr IV.SIG Q8H [facility] Rx#: [id number] Oral 500 / 500 100 / 100 Output: Urine Amount (Catheter) 1000 / 1000 1350 / 1350 Indwelling Urethral Catheter 1000 / 1000 1350 / 1350 Chest Tube Drainage 350 / 350 #1 Right Upper Mediastinal 350 / 350 Other: Date of Last Bowel Movement 03/10/18 03/11/18 03/10/18 # Bowel Movements 3 # Incontinent Bowel Movements 3 - Constitutional no acute distress - Routine HEENT Exam Head: Present: normocephalic Eye: Present: EOMI ENT: Present: mucous membranes moist - Routine Neck Exam Present: supple - Routine Respiratory Exam Present: distant breath sounds - Routine Cardiovascular Exam Present: RRR - Routine Abdominal Exam Present: soft - Routine Skin Exam Present: intact - Detailed Neurological Exam: Coma Scale Eye Opening: Spontaneous - Routine Psychiatric Exam Present: unable to assess - Urinary Catheter Management Indwelling Urethral Catheter Cath placed during this visit: yes, but has since been removed by the nurse Reason for continuing: Chronic Urinary Retention Insertion date: 02/26/18 Insertion time: 16:00 Removal date: 02/26/18 Removal time: 15:30 Assessment and Plan - Assessment (1) Acute renal failure Code(s): N17.9 - Acute kidney failure, unspecified Status: Acute (2) Chronic kidney disease Code(s): N18.9 - Chronic kidney disease, unspecified Status: Acute (3) Shock Code(s): R57.9 - Shock, unspecified Status: Acute (4) BMI 50.0-59.9, adult Code(s): Z68.43 - Body mass index (BMI) 50-59.9, adult Status: Chronic (5) 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 Code(s): E11.9 - Type 2 diabetes mellitus without complications Status: Chronic Qualifiers: 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 type: type 2 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 Edema improving Procedures - Arterial Line Size (Gauge): 20
--- NOTE | 2018-03-11 12:12 | P.PN ---
Subjective Interval history: MORE RESPONSIVE THIS AM NAD Physical Exam Vital signs: Vital Signs 03/10/18 12:30 03/10/18 13:00 03/10/18 13:30 Temperature Pulse Rate 90 90 89 Respiratory Rate 27 H 23 25 H Blood Pressure 128/58 L 123/53 L 135/58 L Pulse Oximetry 96 97 96 03/10/18 14:00 03/10/18 14:29 03/10/18 16:00 Temperature 98.7 F Pulse Rate 90 89 Respiratory Rate 24 Blood Pressure 130/59 L Pulse Oximetry 98 97 03/10/18 18:00 03/10/18 19:48 03/10/18 20:00 Temperature 98.7 F Pulse Rate 89 84 Respiratory Rate 18 Blood Pressure 141/80 H Pulse Oximetry 95 97 03/10/18 22:00 03/11/18 00:00 03/11/18 00:17 Temperature 97.8 F Pulse Rate 82 82 Respiratory Rate 18 Blood Pressure 126/57 L Pulse Oximetry 98 99 03/11/18 02:00 03/11/18 03:57 03/11/18 04:00 Temperature 98.7 F Pulse Rate 80 99 H Respiratory Rate 22 Blood Pressure 110/74 Pulse Oximetry 96 100 03/11/18 06:00 03/11/18 08:00 03/11/18 08:05 Temperature 97.7 F Pulse Rate 87 92 H Respiratory Rate 23 Blood Pressure 133/58 L Pulse Oximetry 97 96 03/11/18 10:00 Temperature Pulse Rate 91 H Respiratory Rate Blood Pressure Pulse Oximetry Intake & Output 03/10/18 03/11/18 03/11/18 18:59 06:59 18:59 Intake Total 1000 / 1000 550 / 550 50 / 50 Output Total 1000 / 1000 1700 / 1700 Balance 0 / 0 -1150 / -1150 50 / 50 Weight 157.2 kg Intake: IV 500 / 500 450 / 450 50 / 50 Lasix Inj 100 MG In NS Inj 90 200 / 200 100 / 100 ML @ 10 mls/hr IV.CONT .Q10H ANA Rx#:[id number] Heparin/D5W 25,000 U/250 mL 25, 250 / 250 250 / 250 000 unit In 250 ml @ Per Protocol IV.CONT TITRATE PRN Rx #:[id number] Zosyn 2.25 GM Premix 50 ML @ 50 / 50 100 / 100 50 / 50 100 mls/hr IV.SIG Q8H ANA Rx#: [id number] Oral 500 / 500 100 / 100 Output: Urine Amount (Catheter) 1000 / 1000 1350 / 1350 Indwelling Urethral Catheter 1000 / 1000 1350 / 1350 Chest Tube Drainage 350 / 350 #1 Right Upper Mediastinal 350 / 350 Other: Date of Last Bowel Movement 03/10/18 03/11/18 03/10/18 # Bowel Movements 3 # Incontinent Bowel Movements 3 Narrative: GENERAL: 72-year-old obese male currently on biapa, with sob. SKIN: Warm and dry. Chronic venous stasis bilateral lower extremities CARDIOVASCULAR: Regular rate and rhythm. S1, S2 no S4. RESPIRATORY: Decreased breath sounds. SOB. GASTROINTESTINAL: Abdomen soft, non-tender, obese with large pannus. MUSCULOSKELETAL: Extremities with trace to 1+ bilateral lower extremity edema. NEUROLOGICAL: Moves all 4 extremity spontaneously. Strength slightly weaker in the lower extremities. PSYCHIATRIC: Depressed mood and affect. - Urinary Catheter Management Indwelling Urethral Catheter Cath placed during this visit: yes, but has since been removed by the nurse Reason for continuing: Chronic Urinary Retention Insertion date: 02/26/18 Insertion time: 16:00 Removal date: 02/26/18 Removal time: 15:30 Results - Labs CBC & Chem 7: 03/11/18 04:42 03/11/18 04:42 Laboratory Results - last 24 hr 03/10/18 03/10/18 03/10/18 12:57 13:40 18:08 WBC RBC Hgb Hct MCV MCH MCHC RDW Plt Count MPV Neut % (Auto) Lymph % (Auto) Oliver % (Auto) Eos % (Auto) Baso % (Auto) Neut # (Auto) Lymph # (Auto) Oliver # (Auto) Eos # (Auto) Baso # (Auto) WBC Differential Differential Comment APTT 72.5 H Puncture Site Patient Temperature O2 Saturation ABG pH ABG pCO2 ABG pO2 ABG HCO3 ABG O2 Content ABG Base Excess ABG Methemoglobin Austin Test Hemoglobin Carboxyhemoglobin O2 Delivery Device Liter Flow Critical Value Sodium Potassium Chloride Carbon Dioxide Anion Gap BUN Creatinine Estimated GFR POC Glucose 191 H 142 H Random Glucose Calcium 03/10/18 03/11/18 03/11/18 19:40 00:19 04:42 WBC 11.5 H RBC 2.92 L Hgb 8.4 L Hct 24.9 L MCV 85.4 MCH 28.8 MCHC 33.7 RDW 15.2 Plt Count 204 MPV 7.9 Neut % (Auto) 82.9 H Lymph % (Auto) 8.8 L Oliver % (Auto) 4.6 Eos % (Auto) 3.2 Baso % (Auto) 0.5 Neut # (Auto) 9.6 H Lymph # (Auto) 1.0 Oliver # (Auto) 0.5 Eos # (Auto) 0.4 Baso # (Auto) 0.1 WBC Differential . Differential Comment Auto diff final APTT Puncture Site Right brachial Patient Temperature 98.6 O2 Saturation 92 ABG pH 7.32 L ABG pCO2 58 H* ABG pO2 74 ABG HCO3 29 H ABG O2 Content 14.9 ABG Base Excess 3.3 H ABG Methemoglobin 1.5 Austin Test Present Hemoglobin 11.5 L Carboxyhemoglobin 0.9 O2 Delivery Device Nasal cannula Liter Flow 4.00 Critical Value Yes Sodium Potassium Chloride Carbon Dioxide Anion Gap BUN Creatinine Estimated GFR POC Glucose 150 H Random Glucose Calcium 03/11/18 03/11/18 03/11/18 04:42 04:42 05:36 WBC RBC Hgb Hct MCV MCH MCHC RDW Plt Count MPV Neut % (Auto) Lymph % (Auto) Oliver % (Auto) Eos % (Auto) Baso % (Auto) Neut # (Auto) Lymph # (Auto) Oliver # (Auto) Eos # (Auto) Baso # (Auto) WBC Differential Differential Comment APTT 82.1 H Puncture Site Patient Temperature O2 Saturation ABG pH ABG pCO2 ABG pO2 ABG HCO3 ABG O2 Content ABG Base Excess ABG Methemoglobin Austin Test Hemoglobin Carboxyhemoglobin O2 Delivery Device Liter Flow Critical Value Sodium 137 Potassium 3.5 Chloride 98 Carbon Dioxide 29.4 Anion Gap 10 BUN 21 H Creatinine 2.98 H Estimated GFR 21 L POC Glucose 146 H Random Glucose 131 H Calcium 8.5 03/11/18 03/11/18 08:11 11:06 WBC RBC Hgb Hct MCV MCH MCHC RDW Plt Count MPV Neut % (Auto) Lymph % (Auto) Oliver % (Auto) Eos % (Auto) Baso % (Auto) Neut # (Auto) Lymph # (Auto) Oliver # (Auto) Eos # (Auto) Baso # (Auto) WBC Differential Differential Comment APTT Puncture Site Patient Temperature O2 Saturation ABG pH ABG pCO2 ABG pO2 ABG HCO3 ABG O2 Content ABG Base Excess ABG Methemoglobin Austin Test Hemoglobin Carboxyhemoglobin O2 Delivery Device Liter Flow Critical Value Sodium Potassium Chloride Carbon Dioxide Anion Gap BUN Creatinine Estimated GFR POC Glucose 140 H 185 H Random Glucose Calcium - Imaging Impressions Chest X-Ray 03/10/18 00:00 CONCLUSION: No significant interval change. Assessment and Plan - Plan RESPIRATORY FAILURE RENAL FAILURE SEPSIS MIRTA/CSA cxray unchanged PLAN O2 NEEDED BIPAP/SLEEP increase activity Procedures - Arterial Line Size (Gauge): 20
--- NOTE | 2018-03-11 14:26 | P.PNIM ---
Subjective Interval history: The patient is in bed he appears very tired. Says he was not on BiPAP during the day today however he might need BiPAP as he feels he is tiring out. He was on BiPAP overnight. He is not short of breath at this time. No fever or chills overnight. He denies any chest pain, no nausea or vomiting. Not eating much decreased appetite. Physical Exam Vital signs: Last Vital Signs Temp 97.8 F 03/11/18 12:00 Pulse 90 03/11/18 12:00 Resp 19 03/11/18 12:00 BP 133/62 03/11/18 12:00 Pulse Ox 100 03/11/18 12:00 Intake & Output 03/09/18 03/10/18 03/11/18 03/12/18 06:59 06:59 06:59 06:59 Intake Total 1950 / 1950 1700 / 1700 1550 / 1550 200 / 200 Output Total 2750 / 2750 2600 / 2600 2700 / 2700 Balance -800 / -800 -900 / -900 -1150 / -1150 200 / 200 Weight 162.2 kg 158.2 kg 157.2 kg Narrative: GENERAL: 72-year-old obese male currently off bipap, with some sob. SKIN: Warm and dry. Chronic venous stasis bilateral lower extremities CARDIOVASCULAR: Regular rate and rhythm. S1, S2 no S4. RESPIRATORY: Decreased breath sounds. SOB. GASTROINTESTINAL: Abdomen soft, non-tender, obese with large pannus. MUSCULOSKELETAL: Extremities with trace to 1+ bilateral lower extremity edema. NEUROLOGICAL: Moves all 4 extremity spontaneously. Strength slightly weaker in the lower extremities. PSYCHIATRIC: Depressed mood and affect. Urinary Catheter Management Indwelling Urethral Catheter: Cath placed during this visit: yes, but has since been removed by the nurse Insertion date: 02/26/18 Insertion time: 16:00 Removal date: 02/26/18 Removal time: 15:30 Results Labs CBC & Chem 7: 03/11/18 04:42 03/11/18 04:42 Imaging Imaging: Impressions Chest X-Ray 03/10/18 00:00 CONCLUSION: No significant interval change. 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 Resume at 200 mg 3 times daily 03/04 Holding scheduled morphine 15 mg every 12 hours for chronic pain Holding duloxetine 20 mg daily for depression. Resume clinically indicated Resume memantine 5 mg at night for dementia Acetaminophen 650 mg every 6 hours as needed fever Hydrocodone/acetaminophen 5/325 1 tablet every 4 hours as needed pain 1 through 5 Morphine sulfate 2 mg IV every 2 hours as needed pain [address] brain revealed no acute intracranial findings 02/26. Ammonia level 20 EEG 02/28 revealed mild slowing. No epileptic activity. MR brain 1211 revealed no acute intracranial findings See musculoskeletal MR C-spine She neurology consult. Thiamine, B12 and MMA pending. Consult psych as patient with worsening depression CV: Sinus bradycardia -resolved A flutter rate controlled. Paroxysmal atrial fibrillation currently normal sinus rhythm History of essential hypertension HyperLipidemia coronary artery disease Congestive heart failure unknown etiology Receive 0.5 mg atropine in route. Received 1 L normal saline crystalloid bolus. Dopamine drip is off Holding atorvastatin 20 mg a day for dyslipidemia. Resume clinically indicated Holding amiodarone 200 mg daily for atrial fibrillation with hyperkalemia. Resume clinically indicated. Holding amlodipine 5 mg daily metoprolol tartrate 205mg twice daily for hypertension resume clinically indicated Holding olmesartan 20 mg daily with hyper kalemia and acute kidney injury. Initial troponin 0 0.02. Trend was negative. 02/28 2D echocardiogram -EF 55-60%. LVH. Moderate MR. PA P 58 mmHg Consult his cardiology Dr Booth , seen by his partener Dr Watson apprreciate recs Monitor on telemetry Patient is on lasix drip , albumin for diuresis Monitor Kidney function Monitor VS S\DC heparin and start eliquis per renal dose Resp: History of obstructive sleep apnea Right greater than left pleural effusion/exudative by light's criteria Acute respiratory failure Currently on PRVC ventilation Head of bed at 30 degrees Ventilator bundle Albuterol/ipratropium aerosols every 4 hours with albuterol aerosols every 2 as needed dyspnea Will likely need CPAP once extubated Spontaneous breathing trials and clinically indicated CT thoracentesis ordered right pleural effusion. -[address] chest revealed right greater than left pleural effusion. Anasarca.. Atelectasis right lower lobe CPAP trial today to extubate. Extubated 03/03 The patient has been on/off BIPAP Consult pulm , ff GI: Elevated transaminases Elevated alkaline phosphatase left liver mass 5 cm Hypoalbuminemia Monitor transaminases. Check hepatitis panel was negative Tube feeds on hold for possible extubation pantoprazole for GI prophylaxis DC sodium/senna 1 tablet twice daily for bowel regimen. Avoid hepatotoxic medications Follow-up on CT abdomen/pelvis revealed small left liver mass. Follow-up MRI of liver in future : BPH Holding alfazosin 10 mg daily for BPH while hypotensive on vasopressors Maintain Orozco catheter Endo: 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 Hypothyroidism with elevated TSH On levothyroxine 50 mcg daily. Continue TSH was 5.02 Sliding scale insulin with Accu-Cheks to maintain euglycemia every 6 hours/ aspart insulin low regimen On sliding scale lispro insulin at home Renal: Acute kidney injury in the setting of chronic kidney disease stage IIIb Maintain Orozco catheter Monitor urine output Accurate I's and O's Check urine eosinophils, sodium and creatinine Will receive hemodialysis 12/27. Also received 02/27. Per nephrology's request. Dr. Leal has been consulted. Defer dialysis to him in future -2500 cc 02/27 950 cc urine output past 24 hours 03/07/18 noted with low BP, received 500 cc NS, BP is better controlled however patient wit sob. CXR reviewed appears with fluid overload. RReceived albumin and started on lasix, precaution as patient with low BP Heme: Leukocytosis Normocytic anemia Chronic rivaroxaban use - Elevated INR/PTT Monitor CBC daily. Follow trends. No indication for transfusion of blood products at this time. Resume baseline anticoagulant after CT head ID: Capnocytophaga sputum positive Blood cultures x2, and UA 02/26 no growth Sputum revealed gram-positive cocci in pairs and clusters 02/27. 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 Received acute hemodialysis today which will correct the underlying electrolyte derangement Potassium currently within normal limits. Recheck in a.m. Hypokalemia. Monitor and replace. MSK: Morbid obesity with Elevated BMI greater than 50 Bilateral lower extremity heel ulcers Cervical canal stenosis Weight loss encouraged PT evaluate and Wound care evaluate and treat MR C-spine revealed C2/3 ventral cord with LF thickening. Thecal sac 4 mm. Moderate C4/5 C5/6 and C6-7 stenosis. Mild C3/4 and C7/T1 stenosis Access -Right femoral CVL and right femoral arterial CVL day 3 placed the ED by . Discontinued 03/01 -Right IJ dialysis catheter removed Prophylaxis -GI -pantoprazole -DVT -SCD , eliquis Discussed with the patient, ICU nurse. 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
[2018-03-11] MEDS: QUEtiapine 25 MG Tablet PO SCH (21:00)
[2018-03-12 05:20] LABS: Hematocrit 25.7 % (39.0-51.0); Hemoglobin 8.6 gm/dL (13.0-17.0); Mean Corpuscular HGB Conc 33.7 % (32.0-36.0); Mean Corpuscular Hemoglobin 28.9 pg (27.0-34.0); Mean Corpuscular Volume 85.8 fL (80.0-100.0); Mean Platelet Volume 8.1 fL (7.0-11.0); Platelet Count 201 th/mm3 (150-450); Red Blood Count 2.99 mil/mm3 (4.50-5.90); Red Cell Distribution Width 15.1 % (11.6-17.2); White Blood Count 11.6 th/mm3 (4.0-11.0)
[2018-03-12 05:39] LABS: Albumin 2.4 g/dL (3.4-5.0); Anion Gap 11 meq/L (5-15); Aspartate Aminotransferase 14 U/L (15-37); Blood Urea Nitrogen 21 mg/dL (7-18); Calcium 8.3 mg/dL (8.5-10.1); Chloride 99 meq/L (98-107); Glomerular Filtration Rate 21 mL/min (>89); Glucose,Random 130 mg/dL (74-106); Magnesium 1.6 mg/dL (1.5-2.5); Potassium 3.5 meq/L (3.5-5.1); Sodium 140 meq/L (136-145)
[2018-03-12 05:43] LABS: Alanine Aminotransferase 17 U/L (12-78); Alkaline Phosphatase 137 U/L (45-117); Total Protein 6.5 g/dL (6.4-8.2)
[2018-03-12] MEDS: Artificial Tears Opth Drops 15 ML Bottle EACH EYE SCH ×3 (06:19→15:55)
[2018-03-12] MEDS: Oral Hygiene Kit OROPHARYNG SCH ×3 (06:19→15:55)
[2018-03-12] MEDS: Levothyroxine 50 MCG Tablet PO SCH (06:28)
[2018-03-12] MEDS: Piperacil/Tazo 2.25 GM Premix 50 ML IV.SIG SCH ×3 (06:29→23:00)
[2018-03-12] MEDS: Chlorhexidine 0.12% Oral Kit 15 ML UDC OROPHARYNG SCH ×2 (08:11→19:46)
[2018-03-12] MEDS: Senna/Docusate Sodium 8.6/50 MG Tablet PO SCH ×2 (08:12→20:18)
[2018-03-12] MEDS: Amiodarone 200 MG Tablet PO SCH (08:12)
[2018-03-12] MEDS: Gabapentin 100 MG Capsule PO SCH ×2 (08:13→20:17)
[2018-03-12] MEDS: Potassium Chloride 25 MEQ Effervescent Tablet PO SCH ×2 (08:14→20:17)
[2018-03-12] MEDS: Ascorbic Acid 500 MG Tablet PO SCH ×2 (08:14→20:19)
[2018-03-12] MEDS: Nystatin 100,000 UNITS/GM Powder 15 GM Bottle TOPICAL SCH ×2 (08:15→20:17)
--- NOTE | 2018-03-12 11:44 | P.PNNP ---
Subjective Interval history: Tired today Physical Exam Vital signs: Vital Signs 03/11/18 12:00 03/11/18 14:00 03/11/18 16:00 Temperature 97.8 F 97.8 F Pulse Rate 90 87 87 Respiratory Rate 19 20 Blood Pressure 133/62 143/57 H Pulse Oximetry 100 100 03/11/18 16:01 03/11/18 17:47 03/11/18 18:00 Temperature Pulse Rate 88 86 Respiratory Rate 20 Blood Pressure 143/57 H Pulse Oximetry 99 98 03/11/18 19:38 03/11/18 20:00 03/11/18 22:00 Temperature 98.7 F Pulse Rate 85 81 Respiratory Rate 14 Blood Pressure 142/79 H Pulse Oximetry 99 99 03/11/18 23:26 03/12/18 00:00 03/12/18 02:00 Temperature 98.7 F Pulse Rate 84 82 Respiratory Rate 17 Blood Pressure 118/59 L Pulse Oximetry 99 99 03/12/18 03:50 03/12/18 04:00 03/12/18 06:00 Temperature 98.8 F Pulse Rate 87 87 Respiratory Rate Blood Pressure 112/74 Pulse Oximetry 99 89 L 03/12/18 08:00 03/12/18 08:01 03/12/18 08:31 Temperature 97.8 F Pulse Rate 91 H 91 H 93 H Respiratory Rate 33 H 37 H 23 Blood Pressure 104/51 L 109/50 L Pulse Oximetry 97 96 96 03/12/18 09:00 03/12/18 10:00 Temperature Pulse Rate 95 H 92 H Respiratory Rate 26 H Blood Pressure 102/68 Pulse Oximetry 91 L Intake & Output 03/11/18 03/12/18 03/12/18 18:59 06:59 18:59 Intake Total 622.00 / 622.00 248 / 248 Output Total 1500 / 1500 1999 / 1999 Balance -878.00 / -878.00 -1752 / -1752 Weight 156.2 kg Intake: IV 502.00 / 502.00 98 / 98 Lasix Inj 100 MG In NS Inj 90 152 / 152 48 / 48 ML @ 10 mls/hr IV.CONT .Q10H ANA Rx#:[id number] Heparin/D5W 25,000 U/250 mL 25, 250.00 / 250.00 000 unit In 250 ml @ Per Protocol IV.CONT TITRATE PRN Rx #:[id number] Zosyn 2.25 GM Premix 50 ML @ 100 / 100 50 / 50 100 mls/hr IV.SIG Q8H ANA Rx#: [id number] Oral 120 / 120 150 / 150 Output: Stool 0 / 0 Urine/Stool Mix 0 / 0 Urine Amount (Catheter) 1500 / 1500 1999 Indwelling Urethral Catheter 1500 / 1500 1999 Other: Date of Last Bowel Movement 03/11/18 03/11/18 03/11/18 # Bowel Movements 1 0 # Incontinent Bowel Movements 1 0 - Constitutional no acute distress - Routine HEENT Exam Head: Present: normocephalic Eye: Present: EOMI ENT: Present: mucous membranes moist - Routine Neck Exam Present: supple - Routine Respiratory Exam Present: decreased breath sounds - Routine Cardiovascular Exam Present: RRR - Routine Abdominal Exam Present: soft - Routine Skin Exam Present: intact - Routine Neurological Exam Present: alert - Detailed Neurological Exam: Coma Scale Eye Opening: Spontaneous - Routine Psychiatric Exam Present: normal affect - Urinary Catheter Management Indwelling Urethral Catheter Cath placed during this visit: yes, but has since been removed by the nurse Reason for continuing: Chronic Urinary Retention Insertion date: 02/26/18 Insertion time: 16:00 Removal date: 02/26/18 Removal time: 15:30 Assessment and Plan - Assessment (1) Acute renal failure Code(s): N17.9 - Acute kidney failure, unspecified Status: Acute (2) Chronic kidney disease Code(s): N18.9 - Chronic kidney disease, unspecified Status: Acute (3) Shock Code(s): R57.9 - Shock, unspecified Status: Acute (4) BMI 50.0-59.9, adult Code(s): Z68.43 - Body mass index (BMI) 50-59.9, adult Status: Chronic (5) 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 Code(s): E11.9 - Type 2 diabetes mellitus without complications Status: Chronic Qualifiers: 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 type: type 2 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 fci insulin use: with fci use 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 complication status: with kidney complications 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 complication detail: with other kidney complication Qualified Code(s): E11.29 - Type 2 diabetes mellitus with other diabetic kidney complication; Z79.4 - FPC (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 - Plan Creatinine stable: 2.8-> 2.9 -> 2.9 On lasix 10mg/hour + albumin 3.4L UOP/24 hours Stable creatinine and good UOP. Continue diuresis with lasix/albumin, follow labs. Edema improving No need for dialysis at this point, continue supportive care. Procedures - Arterial Line Size (Gauge): 20
[2018-03-12] MEDS: Heparin Drip 25,000 UNIT/250 ML BAG IV.CONT PRN (12:11)
--- NOTE | 2018-03-12 14:13 | P.PNIM ---
Subjective Interval history: In bed appears more awake and alert today. On bipap. Not eating much . Will consult deputy felony clerk. Add nepro to diet as a supplement Fairly good UOP Physical Exam Vital signs: Last Vital Signs Temp 97.8 F 03/12/18 12:00 Pulse 94 H 03/12/18 12:00 Resp 31 H 03/12/18 12:00 BP 98/61 L 03/12/18 12:00 Pulse Ox 97 03/12/18 12:00 Intake & Output 03/10/18 03/11/18 03/12/18 03/13/18 06:59 06:59 06:59 06:59 Intake Total 1700 / 1700 1550 / 1550 920.00 / 920.00 250 / 250 Output Total 2600 / 2600 2700 / 2700 3500 / 3500 Balance -900 / -900 -1150 / -1150 -2580.00 / -2580.00 250 / 250 Weight 158.2 kg 157.2 kg 156.2 kg Narrative: GENERAL: 72-year-old obese male currently off bipap, with some sob. SKIN: Warm and dry. Chronic venous stasis bilateral lower extremities CARDIOVASCULAR: Regular rate and rhythm. S1, S2 no S4. RESPIRATORY: Decreased breath sounds. SOB. GASTROINTESTINAL: Abdomen soft, non-tender, obese with large pannus. MUSCULOSKELETAL: Extremities with trace to 1+ bilateral lower extremity edema. NEUROLOGICAL: Moves all 4 extremity spontaneously. Strength slightly weaker in the lower extremities. PSYCHIATRIC: Depressed mood and affect. Urinary Catheter Management Indwelling Urethral Catheter: Cath placed during this visit: yes, but has since been removed by the nurse Insertion date: 02/26/18 Insertion time: 16:00 Removal date: 02/26/18 Removal time: 15:30 Results Labs CBC & Chem 7: 03/12/18 04:47 03/12/18 04:47 Assessment and Plan (1) Acute renal failure: Code(s): N17.9 - Acute kidney failure, unspecified Status: Acute (2) Chronic kidney disease: Code(s): N18.9 - Chronic kidney disease, unspecified Status: Acute (3) Shock: Code(s): R57.9 - Shock, unspecified Status: Acute (4) BMI 50.0-59.9, adult: Code(s): Z68.43 - Body mass index (BMI) 50-59.9, adult Status: Chronic (5) 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: Code(s): E11.9 - Type 2 diabetes mellitus without complications Status: Chronic Plan Neuro/Psych: Acute toxic metabolic encephalopathy, improving History of TIA Depression/anxiety Chronic peripheral neuropathy secondary to diabetes mellitus Dementia disorder NOS Holding gabapentin 600 mg 3 times daily for peripheral neuropathy. Resume at 200 mg 3 times daily 03/04 Holding scheduled morphine 15 mg every 12 hours for chronic pain Holding duloxetine 20 mg daily for depression. Resume clinically indicated Resume memantine 5 mg at night for dementia Acetaminophen 650 mg every 6 hours as needed fever Hydrocodone/acetaminophen 5/325 1 tablet every 4 hours as needed pain 1 through 5 Morphine sulfate 2 mg IV every 2 hours as needed pain [address] brain revealed no acute intracranial findings 02/26. Ammonia level 20 EEG 02/28 revealed mild slowing. No epileptic activity. MR brain 1211 revealed no acute intracranial findings See musculoskeletal MR C-spine She neurology consult. Thiamine, B12 and MMA pending. Consult psych as patient with worsening depression CV: Sinus bradycardia -resolved A flutter rate controlled. Paroxysmal atrial fibrillation currently normal sinus rhythm History of essential hypertension HyperLipidemia coronary artery disease Congestive heart failure unknown etiology Receive 0.5 mg atropine in route. Received 1 L normal saline crystalloid bolus. Dopamine drip is off Holding atorvastatin 20 mg a day for dyslipidemia. Resume clinically indicated Holding amiodarone 200 mg daily for atrial fibrillation with hyperkalemia. Resume clinically indicated. Holding amlodipine 5 mg daily metoprolol tartrate 205mg twice daily for hypertension resume clinically indicated Holding olmesartan 20 mg daily with hyper kalemia and acute kidney injury. Initial troponin 0 0.02. Trend was negative. 02/28 2D echocardiogram -EF 55-60%. LVH. Moderate MR. PA P 58 mmHg Consult his cardiology Dr Booth , seen by his partener Dr Watson apprreciate recs Monitor on telemetry Patient is on lasix drip , albumin for diuresis Monitor Kidney function Monitor VS S\DC heparin and start eliquis per renal dose Resp: History of obstructive sleep apnea Right greater than left pleural effusion/exudative by light's criteria Acute respiratory failure Currently on PRVC ventilation Head of bed at 30 degrees Ventilator bundle Albuterol/ipratropium aerosols every 4 hours with albuterol aerosols every 2 as needed dyspnea Will likely need CPAP once extubated Spontaneous breathing trials and clinically indicated CT thoracentesis ordered right pleural effusion. -[address] chest revealed right greater than left pleural effusion. Anasarca.. Atelectasis right lower lobe CPAP trial today to extubate. Extubated 03/03 The patient has been on/off BIPAP Consult pulm , ff GI: Elevated transaminases Elevated alkaline phosphatase left liver mass 5 cm Hypoalbuminemia Monitor transaminases. Check hepatitis panel was negative Tube feeds on hold for possible extubation pantoprazole for GI prophylaxis DC sodium/senna 1 tablet twice daily for bowel regimen. Avoid hepatotoxic medications Follow-up on CT abdomen/pelvis revealed small left liver mass. Follow-up MRI of liver in future : BPH Holding alfazosin 10 mg daily for BPH while hypotensive on vasopressors Maintain Orozco catheter Endo: 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 Hypothyroidism with elevated TSH On levothyroxine 50 mcg daily. Continue TSH was 5.02 Sliding scale insulin with Accu-Cheks to maintain euglycemia every 6 hours/ aspart insulin low regimen On sliding scale lispro insulin at home Renal: Acute kidney injury in the setting of chronic kidney disease stage IIIb Maintain Orozco catheter Monitor urine output Accurate I's and O's Check urine eosinophils, sodium and creatinine Will receive hemodialysis 12/27. Also received 02/27. Per nephrology's request. Dr. Leal has been consulted. Defer dialysis to him in future -2500 cc 02/27 950 cc urine output past 24 hours 03/07/18 noted with low BP, received 500 cc NS, BP is better controlled however patient wit sob. CXR reviewed appears with fluid overload. RReceived albumin and started on lasix, precaution as patient with low BP Heme: Leukocytosis Normocytic anemia Chronic rivaroxaban use - Elevated INR/PTT Monitor CBC daily. Follow trends. No indication for transfusion of blood products at this time. Resume baseline anticoagulant after CT head ID: Capnocytophaga sputum positive Blood cultures x2, and UA 02/26 no growth Sputum revealed gram-positive cocci in pairs and clusters 02/27. 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 Received acute hemodialysis today which will correct the underlying electrolyte derangement Potassium currently within normal limits. Recheck in a.m. Hypokalemia. Monitor and replace. MSK: Morbid obesity with Elevated BMI greater than 50 Bilateral lower extremity heel ulcers Cervical canal stenosis Weight loss encouraged PT evaluate and Wound care evaluate and treat MR C-spine revealed C2/3 ventral cord with LF thickening. Thecal sac 4 mm. Moderate C4/5 C5/6 and C6-7 stenosis. Mild C3/4 and C7/T1 stenosis Access -Right femoral CVL and right femoral arterial CVL day 3 placed the ED by . Discontinued 03/01 -Right IJ dialysis catheter removed Prophylaxis -GI -pantoprazole -DVT -SCD , eliquis Discussed with the patient, ICU nurse. He is on lasix drip, requiring BiPAP on /off during the day and on bipap at night Progress Note: Quality VTE Deep Vein Thrombosis/Pulmonary Embolism Present on Admission: No Procedures Arterial Line Size (Gauge): 20 _ (1) 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 Qualifiers: Chronic kidney disease stage: 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 complication detail: with other kidney complication 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 complication status: with kidney complications 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 skilled nursing insulin use: with extermination supervisor use 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 macular edema: 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 type: type 2 Diabetic retinopathy severity: Laterality: Proliferative retinopathy type: Qualified Code(s): E11.29 - Type 2 diabetes mellitus with other diabetic kidney complication; Z79.4 - FDC (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 (2) Acute renal failure Qualifiers: Acute renal failure type: (3) Chronic kidney disease Qualifiers: Chronic kidney disease stage:
[2018-03-12] MEDS: Furosemide Inj 100 MG in Sodium Chlor 0.9% Inj 90 ML IV.CONT SCH ×3 (16:20)
[2018-03-12] MEDS: QUEtiapine 25 MG Tablet PO SCH (20:19)
[2018-03-13] MEDS: Artificial Tears Opth Drops 15 ML Bottle EACH EYE SCH ×3 (00:07→14:54)
[2018-03-13] MEDS: Oral Hygiene Kit OROPHARYNG SCH ×4 (00:07→15:29)
[2018-03-13] MEDS: Furosemide Inj 100 MG in Sodium Chlor 0.9% Inj 90 ML IV.CONT SCH ×3 (01:33→15:29)
[2018-03-13] MEDS: Piperacil/Tazo 2.25 GM Premix 50 ML IV.SIG SCH ×2 (05:26→13:23)
[2018-03-13] MEDS: Levothyroxine 50 MCG Tablet PO SCH (05:26)
[2018-03-13] MEDS: Heparin Drip 25,000 UNIT/250 ML BAG IV.CONT PRN (05:27)
[2018-03-13 06:27] LABS: Hematocrit 24.9 % (39.0-51.0); Hemoglobin 8.5 gm/dL (13.0-17.0); Mean Corpuscular HGB Conc 34.1 % (32.0-36.0); Mean Corpuscular Hemoglobin 29.3 pg (27.0-34.0); Mean Platelet Volume 8.5 fL (7.0-11.0); Platelet Count 183 th/mm3 (150-450); Red Blood Count 2.89 mil/mm3 (4.50-5.90); Red Cell Distribution Width 15.3 % (11.6-17.2); White Blood Count 10.8 th/mm3 (4.0-11.0)
[2018-03-13 06:50] LABS: Albumin 2.4 g/dL (3.4-5.0); Anion Gap 11 meq/L (5-15); Aspartate Aminotransferase 11 U/L (15-37); Blood Urea Nitrogen 21 mg/dL (7-18); Calcium 8.4 mg/dL (8.5-10.1); Carbon Dioxide 30.9 meq/L (21.0-32.0); Chloride 97 meq/L (98-107); Glomerular Filtration Rate 21 mL/min (>89); Glucose,Random 136 mg/dL (74-106); Magnesium 1.6 mg/dL (1.5-2.5); Potassium 3.7 meq/L (3.5-5.1); Sodium 139 meq/L (136-145)
[2018-03-13 06:51] LABS: Alanine Aminotransferase 14 U/L (12-78)
[2018-03-13 06:54] LABS: Alkaline Phosphatase 127 U/L (45-117); Total Protein 6.6 g/dL (6.4-8.2)
[2018-03-13] MEDS: Gabapentin 100 MG Capsule PO SCH ×2 (08:25→20:11)
[2018-03-13] MEDS: Senna/Docusate Sodium 8.6/50 MG Tablet PO SCH ×2 (08:26→20:13)
[2018-03-13] MEDS: Ascorbic Acid 500 MG Tablet PO SCH ×2 (08:26→20:12)
[2018-03-13] MEDS: Potassium Chloride 25 MEQ Effervescent Tablet PO SCH ×2 (08:26→20:28)
[2018-03-13] MEDS: Amiodarone 200 MG Tablet PO SCH (08:26)
[2018-03-13] MEDS: Chlorhexidine 0.12% Oral Kit 15 ML UDC OROPHARYNG SCH ×2 (08:26→20:14)
[2018-03-13] MEDS: Nystatin 100,000 UNITS/GM Powder 15 GM Bottle TOPICAL SCH ×2 (08:26→20:15)
--- NOTE | 2018-03-13 10:14 | P.PN ---
Subjective Interval history: more alert NAD Physical Exam Vital signs: Vital Signs 03/12/18 12:00 03/12/18 14:00 03/12/18 15:14 Temperature 97.8 F Pulse Rate 94 H 91 H Respiratory Rate 31 H Blood Pressure 98/61 L Pulse Oximetry 97 98 03/12/18 16:00 03/12/18 16:10 03/12/18 18:00 Temperature 97.9 F Pulse Rate 88 86 87 Respiratory Rate 18 16 Blood Pressure 111/58 L 111/58 L Pulse Oximetry 98 100 03/12/18 19:39 03/12/18 20:00 03/12/18 20:46 Temperature 98.8 F Pulse Rate 87 Respiratory Rate 23 Blood Pressure 119/58 L Pulse Oximetry 93 L 100 96 03/12/18 22:00 03/12/18 23:53 03/13/18 00:00 Temperature 98.6 F Pulse Rate 85 84 Respiratory Rate 15 Blood Pressure 113/53 L Pulse Oximetry 99 99 03/13/18 02:00 03/13/18 04:00 03/13/18 04:17 Temperature 98.6 F Pulse Rate 81 85 Respiratory Rate 18 Blood Pressure 114/53 L Pulse Oximetry 100 100 03/13/18 06:00 03/13/18 08:00 03/13/18 08:01 Temperature 98.4 F Pulse Rate 82 88 99 H Respiratory Rate 15 14 Blood Pressure 147/56 H Pulse Oximetry 94 L 95 03/13/18 08:30 03/13/18 10:00 Temperature Pulse Rate 91 H 94 H Respiratory Rate 15 Blood Pressure 150/101 H Pulse Oximetry 91 L Intake & Output 03/12/18 03/13/18 03/13/18 18:59 06:59 18:59 Intake Total 641.52 / 641.52 628.48 / 628.48 50 / 50 Output Total 2300 / 2300 1999 / 1999 Balance -1658.48 / -1658.48 -1371.52 / -1371.52 50 / 50 Weight 153.3 kg Intake: IV 521.52 / 521.52 278.48 / 278.48 50 / 50 Lasix Inj 100 MG In NS Inj 90 121.2 / 121.2 78.8 / 78.8 ML @ 10 mls/hr IV.CONT .Q10H [facility] Rx#:[id number] Heparin/D5W 25,000 U/250 mL 25, 350.32 / 350.32 149.68 / 149.68 000 unit In 250 ml @ Per Protocol IV.CONT TITRATE PRN Rx #:[id number] Zosyn 2.25 GM Premix 50 ML @ 50 / 50 50 / 50 50 / 50 100 mls/hr IV.SIG Q8H [facility] Rx#: [id number] Oral 120 / 120 350 / 350 Output: Stool 0 / 0 Urine/Stool Mix 0 / 0 Urine Amount (Catheter) 2299 Indwelling Urethral Catheter 2299 Other: Date of Last Bowel Movement 03/12/18 03/12/18 03/12/18 # Bowel Movements 1 0 # Incontinent Bowel Movements 0 Narrative: GENERAL: 72-year-old obese male currently off bipap, with some sob. SKIN: Warm and dry. Chronic venous stasis bilateral lower extremities CARDIOVASCULAR: Regular rate and rhythm. S1, S2 no S4. RESPIRATORY: Decreased breath sounds. SOB. GASTROINTESTINAL: Abdomen soft, non-tender, obese with large pannus. MUSCULOSKELETAL: Extremities with trace to 1+ bilateral lower extremity edema. NEUROLOGICAL: Moves all 4 extremity spontaneously. Strength slightly weaker in the lower extremities. PSYCHIATRIC: Depressed mood and affect. - Urinary Catheter Management Indwelling Urethral Catheter Cath placed during this visit: yes, but has since been removed by the nurse Reason for continuing: Chronic Urinary Retention Insertion date: 02/26/18 Insertion time: 16:00 Removal date: 02/26/18 Removal time: 15:30 Results - Labs CBC & Chem 7: 03/13/18 05:08 03/13/18 05:08 Laboratory Results - last 24 hr 03/12/18 03/12/18 03/13/18 11:11 17:08 02:02 WBC RBC Hgb Hct MCV MCH MCHC RDW Plt Count MPV Sodium Potassium Chloride Carbon Dioxide Anion Gap BUN Creatinine Estimated GFR POC Glucose 186 H 186 H 153 H Random Glucose Calcium Phosphorus Magnesium Total Bilirubin AST ALT Alkaline Phosphatase Total Protein Albumin 03/13/18 03/13/18 03/13/18 05:08 05:08 07:29 WBC 10.8 RBC 2.89 L Hgb 8.5 L Hct 24.9 L MCV 86.0 MCH 29.3 MCHC 34.1 RDW 15.3 Plt Count 183 MPV 8.5 Sodium 139 Potassium 3.7 Chloride 97 L Carbon Dioxide 30.9 Anion Gap 11 BUN 21 H Creatinine 3.03 H Estimated GFR 21 L POC Glucose 168 H Random Glucose 136 H Calcium 8.4 L Phosphorus 4.0 Magnesium 1.6 Total Bilirubin 0.4 AST 11 L ALT 14 Alkaline Phosphatase 127 H Total Protein 6.6 Albumin 2.4 L Assessment and Plan - Plan RESPIRATORY FAILURE RENAL FAILURE SEPSIS MIRTA/CSA cxray unchanged PLAN O2 NEEDED BIPAP/SLEEP increase activity Procedures - Arterial Line Size (Gauge): 20
--- NOTE | 2018-03-13 11:28 | P.PNCA ---
Subjective Interval history: Patient denies any CP, pressure, palpitations, dizziness or SOB. Patient does complain of edema in the arms and LEs. Medications and Allergies Allergies Allergy/AdvReac Type Severity Reaction Status Date / Time daptomycin Allergy Severe Unverified 11/02/16 23:29 Sulfa (Sulfonamide Allergy Mild RASH Unverified 11/02/16 23:29 Antibiotics) Home Medications Medication Instructions Recorded Confirmed Type Lactobacillus acidophilus 1 tab PO BID 02/26/18 02/26/18 History [Acidophilus] alfuzosin 10 mg PO DAILY 02/26/18 02/26/18 History amino acids-protein hydrolys 30 ml PO DAILY 02/26/18 02/26/18 History [Pro-Stat Sugar Free] amiodarone 200 mg PO DAILY 02/26/18 02/26/18 History amlodipine 5 mg PO DAILY 02/26/18 02/26/18 History ascorbic acid (vitamin C) [Vitamin 500 mg PO BID 02/26/18 02/26/18 History C] atorvastatin 20 mg PO HS 02/26/18 02/26/18 History bisacodyl [Dulcolax (bisacodyl)] 10 mg [place] DAILY PRN 02/26/18 02/26/18 History duloxetine [Cymbalta] 20 mg PO DAILY 02/26/18 02/26/18 History furosemide [Lasix] 20 mg PO BID 02/26/18 02/26/18 History gabapentin 600 mg PO TID 02/26/18 02/26/18 History insulin lispro [Humalog U-100 2 - 10 unit SUBCUT ACHS 02/26/18 02/26/18 History Insulin] levothyroxine 50 mcg PO DAILY 02/26/18 02/26/18 History magnesium hydroxide [Milk of 30 ml PO DIRECTED PRN 02/26/18 02/26/18 History Magnesia] memantine [Namenda] 5 mg PO QPM 02/26/18 02/26/18 History metoprolol tartrate 25 mg PO BID 02/26/18 02/26/18 History morphine [MS Contin] 15 mg PO Q12H 02/26/18 02/26/18 History multivitamin [Tab-A-Lucille] 1 tab PO DAILY 02/26/18 02/26/18 History olmesartan 20 mg PO DAILY 02/26/18 02/26/18 History ondansetron HCl [Zofran] 4 mg PO Q8H PRN 02/26/18 02/26/18 History ondansetron [Zofran ODT] 4 mg PO Q6H PRN 02/26/18 02/26/18 History rivaroxaban [Xarelto] 20 mg PO QPM 02/26/18 02/26/18 History sennosides-docusate sodium 2 tab PO BID PRN 02/26/18 02/26/18 History sodium phosphates [Fleet Enema] 118 ml [place] DIRECTED PRN 02/26/18 02/26/18 History zinc sulfate 220 mg PO DAILY 02/26/18 02/26/18 History Active Medications: Active Medications Acetaminophen (Tylenol) 650 mg PO Q6H PRN PRN Reason: FEVER Last Admin: 03/04/18 17:51 Dose: 650 mg Acetaminophen (Tylenol) 650 mg PO UNSCH PRN PRN Reason: SEE LABEL COMMENTS Hydrocodone Bitart/Acetaminophen ([place] 5/325) 1 tab PO Q4H PRN PRN Reason: Pain 1 through 5 Last Admin: 03/09/18 08:52 Dose: 1 tab Al Hydroxide/Mg Hydroxide (Milk Of Freda Foxq) 30 ml PO Q12H PRN PRN Reason: Mild Constipation Albuterol (Albuterol Neb (Prn)) 2.5 mg NEB Q2HR NEB PRN PRN Reason: SHORTNESS OF BREATH/WHEEZING Amiodarone HCl (Cordarone) 200 mg PO DAILY [facility] Last Admin: 03/13/18 08:26 Dose: 200 mg Artificial Tears (Tears Naturale Opth Drops) 1 drop EACH EYE Q8H [facility] Last Admin: 03/13/18 08:26 Dose: 1 drop Ascorbic Acid (Vitamin C) 500 mg PO BID [facility] Last Admin: 03/13/18 08:26 Dose: 500 mg Atorvastatin Calcium (Lipitor) 20 mg PO HS [facility] Last Admin: 03/12/18 20:17 Dose: 20 mg Bisacodyl (Dulcolax Supp) 10 mg RECTAL DAILY PRN PRN Reason: SEVERE CONSITIPATION Chlorhexidine Gluconate (Peridex 0.12% Oral Kit) 15 ml OROPHARYNG BID@0800, 2000 [facility] Last Admin: 03/13/18 08:26 Dose: Not Given Clonidine HCl (Catapres) 0.1 mg PO UNSCH PRN PRN Reason: SEE LABEL COMMENTS Diphenhydramine HCl (Benadryl) 25 mg PO UNSCH PRN PRN Reason: SEE LABEL COMMENTS Last Admin: 03/04/18 21:52 Dose: 25 mg Duloxetine HCl (Cymbalta) 30 mg PO DAILY [facility] Last Admin: 03/13/18 08:25 Dose: 30 mg Gabapentin (Neurontin) 200 mg PO BID [facility] Last Admin: 03/13/18 08:25 Dose: 200 mg Gelatin (Gelfoam 12 Mm/7 Mm Topical) 1 foam TOPICAL PRN PRN PRN Reason: help stop bleeding from site Last Admin: 03/05/18 05:08 Dose: 1 foam Gentamicin Sulfate (Gentamicin Inj) 20 mg OTHER WITH DIALYSIS PRN PRN Reason: Dwell Gentamycin Lock Last Admin: 03/03/18 09:16 Dose: 20 mg Heparin Sodium (Porcine) (Heparin Inj) 1,000 units OTHER WITH DIALYSIS PRN PRN Reason: Dwell Heparin to Fill Catheter Last Admin: 03/03/18 09:15 Dose: 1,000 units Heparin Sodium (Porcine) (Heparin Inj) 8,000 units OTHER WITH DIALYSIS PRN PRN Reason: for machine prime Hydralazine HCl (Apresoline Inj) 10 mg IV.PUSH Q1H PRN PRN Reason: SYS BP GREATER THAN 170 MMHG Piperacillin/Tazobactam/Dextrose (Zosyn 2.25 Gm Premix) 50 mls @ 100 mls/hr IV.SIG Q8H [facility] Last Infusion: 03/13/18 07:09 Dose: Infused Propofol (Diprivan 1000 Mg/100 Ml Inj) 1,000 mg in 100 mls @ 5.171 mls/hr IV.CONT TITRATE PRN; Protocol PRN Reason: Per Protocol Albumin Human (Flexbumin 25% Inj) 100 mls @ 60 mls/hr IV.SIG WITH DIALYSIS PRN PRN Reason: hypotension / volume replace Last Infusion: 03/04/18 07:00 Dose: Infused Sodium Chloride (Ns Inj) 1,000 mls @ 0 mls/hr OTHER .Q0M PRN PRN Reason: for prime and rinse back Sodium Chloride (Ns Inj) 1,000 mls @ 200 mls/hr OTHER .Q5H PRN PRN Reason: for dialyzer flush PRN Sodium Chloride (Ns Inj) 1,000 mls @ 0 mls/hr IV.CONT .Q0M PRN PRN Reason: hypotension / volume replace Heparin Sodium/Dextrose (Heparin/D5w 25,000 U/250 Ml) 25,000 unit in 250 mls @ 0 mls/hr IV.CONT TITRATE PRN; Protocol PRN Reason: Per Protocol Last Admin: 03/13/18 05:27 Dose: 1,600 units/hr, 16 mls/hr Furosemide 100 mg/ Sodium (Chloride) 100 mls @ 10 mls/hr IV.CONT .Q10H [facility] Last Admin: 03/13/18 01:33 Dose: 10 mls/hr Lactulose (Lactulose Liq) 30 ml PO DAILY PRN PRN Reason: SEVERE CONSITIPATION Levothyroxine Sodium (Synthroid) 50 mcg PO DAILY@0600 [facility] Last Admin: 03/13/18 05:26 Dose: 50 mcg Mannitol (Mannitol Inj) 12.5 gm IV.PUSH UNSCH PRN PRN Reason: hypotension / volume replace Memantine (Namenda) 10 mg PO QPM [facility] Last Admin: 03/12/18 17:06 Dose: 10 mg Miscellaneous Medication () 1 each OROPHARYNG 0000,0400,1200,1600 [facility] Last Admin: 03/13/18 11:22 Dose: Not Given Morphine Sulfate (Morphine Inj) 2 mg IV.PUSH Q3H PRN PRN Reason: Pain 6 through 10 Last Admin: 03/08/18 17:23 Dose: 2 mg Multivitamins (Theragran) 1 tab PO DAILY [facility] Last Admin: 03/13/18 08:25 Dose: 1 tab Nitroglycerin (Nitro-Bid 2% Oint) 2 inch TOPICAL Q6HR PRN PRN Reason: SYS BP GREATER THAN 170 MMHG Nitroglycerin (Nitrostat Sl) 0.4 mg SL Q5M PRN PRN Reason: CHEST PAIN Nystatin (Mycostatin Powder) 1 applicatio TOPICAL BID [facility] Last Admin: 03/13/18 08:26 Dose: 1 applicatio Ondansetron HCl (Zofran Inj) 4 mg IV.PUSH Q6H PRN PRN Reason: NAUSEA OR VOMITING Ondansetron HCl (Zofran Inj) 4 mg IV.PUSH UNSCH PRN PRN Reason: NAUSEA OR VOMITING Pantoprazole Sodium (Protonix) 40 mg PO DAILY [facility] Last Admin: 03/13/18 08:26 Dose: 40 mg Potassium Bicarb/Potassium Chloride (K-Lyte Cl Eff) 25 meq PO BID [facility] Last Admin: 03/13/18 08:26 Dose: 25 meq Quetiapine Fumarate (Seroquel) 25 mg PO HS [facility] Last Admin: 03/12/18 20:19 Dose: 25 mg Senna/Docusate Sodium (Kim-Colace) 1 tab PO BID [facility] Last Admin: 03/13/18 08:26 Dose: Not Given Sennosides (Senokot) 17.2 mg PO Q12H PRN PRN Reason: Moderate Constipation Sodium Chloride (Ns Flush) 2 ml IV.FLUSH BID [facility] Last Admin: 03/13/18 08:26 Dose: 2 ml Sodium Chloride (Ns Flush) 2 ml IV.FLUSH PRN PRN PRN Reason: FLUSH AFTER USING IV ACCESS Sodium Chloride (Ns Flush) 0 ml IV.FLUSH DAILY [facility] Last Admin: 03/13/18 08:26 Dose: Not Given Sodium Chloride (Ns Flush) 0 ml IV.FLUSH PRN PRN PRN Reason: FLUSH AFTER USING IV ACCESS Sodium Chloride (Ns Flush) 5 ml IV.FLUSH PRN PRN PRN Reason: flush each lumen during HD Tamsulosin HCl (Flomax) 0.4 mg PO DAILY [facility] Last Admin: 03/13/18 08:26 Dose: 0.4 mg Zinc Sulfate (Zinc-220) 220 mg PO DAILY [facility] Last Admin: 03/13/18 08:25 Dose: 220 mg Physical Exam Vital signs: Vital Signs 03/12/18 12:00 03/12/18 14:00 03/12/18 15:14 Temperature 97.8 F Pulse Rate 94 H 91 H Respiratory Rate 31 H Blood Pressure 98/61 L Pulse Oximetry 97 98 03/12/18 16:00 03/12/18 16:10 03/12/18 18:00 Temperature 97.9 F Pulse Rate 88 86 87 Respiratory Rate 18 16 Blood Pressure 111/58 L 111/58 L Pulse Oximetry 98 100 03/12/18 19:39 03/12/18 20:00 03/12/18 20:46 Temperature 98.8 F Pulse Rate 87 Respiratory Rate 23 Blood Pressure 119/58 L Pulse Oximetry 93 L 100 96 03/12/18 22:00 03/12/18 23:53 03/13/18 00:00 Temperature 98.6 F Pulse Rate 85 84 Respiratory Rate 15 Blood Pressure 113/53 L Pulse Oximetry 99 99 03/13/18 02:00 03/13/18 04:00 03/13/18 04:17 Temperature 98.6 F Pulse Rate 81 85 Respiratory Rate 18 Blood Pressure 114/53 L Pulse Oximetry 100 100 03/13/18 06:00 03/13/18 08:00 03/13/18 08:01 Temperature 98.4 F Pulse Rate 82 88 99 H Respiratory Rate 15 14 Blood Pressure 147/56 H Pulse Oximetry 94 L 95 03/13/18 08:30 03/13/18 10:00 Temperature Pulse Rate 91 H 94 H Respiratory Rate 15 Blood Pressure 150/101 H Pulse Oximetry 91 L Intake & Output 03/12/18 03/13/18 03/13/18 18:59 06:59 18:59 Intake Total 641.52 / 641.52 628.48 / 628.48 50 / 50 Output Total 2299 / 2299 Balance -1658.48 / -1658.48 -1371.52 / -1371.52 50 / 50 Weight 153.3 kg Intake: IV 521.52 / 521.52 278.48 / 278.48 50 / 50 Lasix Inj 100 MG In NS Inj 90 121.2 / 121.2 78.8 / 78.8 ML @ 10 mls/hr IV.CONT .Q10H [facility] Rx#:[id number] Heparin/D5W 25,000 U/250 mL 25, 350.32 / 350.32 149.68 / 149.68 000 unit In 250 ml @ Per Protocol IV.CONT TITRATE PRN Rx #:[id number] Zosyn 2.25 GM Premix 50 ML @ 50 / 50 50 / 50 50 / 50 100 mls/hr IV.SIG Q8H [facility] Rx#: [id number] Oral 120 / 120 350 / 350 Output: Stool 0 / 0 Urine/Stool Mix 0 / 0 Urine Amount (Catheter) 2299 / 2299 Indwelling Urethral Catheter 2299 Other: Date of Last Bowel Movement 03/12/18 03/12/18 03/12/18 # Bowel Movements 1 0 # Incontinent Bowel Movements 0 - Constitutional no acute distress - Routine HEENT Exam Head: Present: normocephalic Eye: Present: PERRL ENT: Present: mucous membranes moist - Routine Neck Exam Present: full ROM - Routine Respiratory Exam Present: crackles Comments: fine crackles bilateral lower lobes. - Routine Cardiovascular Exam Present: S1, S2, irregular rhythm - Routine Abdominal Exam Present: normoactive bowel sounds - Routine Extremities Exam Present: edema, full ROM, pulses intact, normal capillary refill. Absent: cyanosis, clubbing - Routine Skin Exam Present: intact - Routine Neurological Exam Present: alert - Detailed Neurological Exam: Coma Scale Eye Opening: Spontaneous Verbal Response: Oriented Motor Response: Obey commands Isela Coma Scale Total: 15 - Routine Psychiatric Exam Present: normal affect - Urinary Catheter Management Indwelling Urethral Catheter Cath placed during this visit: yes, but has since been removed by the nurse Reason for continuing: Chronic Urinary Retention Insertion date: 02/26/18 Insertion time: 16:00 Removal date: 02/26/18 Removal time: 15:30 Results 03/13/18 05:08 03/13/18 05:08 Cardiac Enzymes 03/12/18 03/13/18 Range/Units 04:47 05:08 AST 14 L 11 L (15-37) U/L Coagulation 03/11/18 03/11/18 03/12/18 Range/Units 14:03 19:32 04:47 APTT 66.1 H 71.6 H 74.2 H (23.4-31.7) sec 03/13/18 Range/Units 08:26 APTT 41.2 H D (23.4-31.7) sec CBC 03/12/18 03/13/18 Range/Units 04:47 05:08 WBC 11.6 H 10.8 (4.0-11.0) th/mm3 RBC 2.99 L 2.89 L (4.50-5.90) mil/mm3 Hgb 8.6 L 8.5 L (13.0-17.0) gm/dL Hct 25.7 L 24.9 L (39.0-51.0) % Plt Count 201 183 (150-450) th/mm3 Comprehensive Metabolic Panel 03/12/18 03/13/18 Range/Units 04:47 05:08 Sodium 140 139 (136-145) meq/L Potassium 3.5 3.7 (3.5-5.1) meq/L Chloride 99 97 L (98-107) meq/L Carbon Dioxide 30.0 30.9 (21.0-32.0) meq/L BUN 21 H 21 H (7-18) mg/dL Creatinine 2.94 H 3.03 H (0.60-1.30) mg/dL Calcium 8.3 L 8.4 L (8.5-10.1) mg/dL AST 14 L 11 L (15-37) U/L ALT 17 14 (12-78) U/L Alkaline Phosphatase 137 H 127 H (45-117) U/L Total Protein 6.5 6.6 (6.4-8.2) g/dL Albumin 2.4 L 2.4 L (3.4-5.0) g/dL Intake and Output 03/12/18 03/13/18 03/13/18 22:59 06:59 14:59 Intake Total 241.52 / 241.52 628.48 / 628.48 50 / 50 Output Total 2299 / 2299 Balance -2058.48 / -2058.48 -1371.52 / -1371.52 50 / 50 Intake: IV 121.52 / 121.52 278.48 / 278.48 50 / 50 Lasix Inj 100 MG In NS Inj 90 21.2 / 21.2 78.8 / 78.8 ML @ 10 mls/hr IV.CONT .Q10H [facility] Rx#:[id number] Heparin/D5W 25,000 U/250 mL 25, 100.32 / 100.32 149.68 / 149.68 000 unit In 250 ml @ Per Protocol IV.CONT TITRATE PRN Rx #:[id number] Zosyn 2.25 GM Premix 50 ML @ 50 / 50 50 / 50 100 mls/hr IV.SIG Q8H [facility] Rx#: [id number] Oral 120 / 120 350 / 350 Output: Stool 0 / 0 Urine/Stool Mix 0 / 0 Urine Amount (Catheter) 2299 Indwelling Urethral Catheter 2299 Other: Date of Last Bowel Movement 03/12/18 03/12/18 03/12/18 # Bowel Movements 1 0 # Incontinent Bowel Movements 0 Weight 153.3 kg Assessment and Plan - Assessment (1) CHF (congestive heart failure) Code(s): I50.9 - Heart failure, unspecified Status: Acute (2) Atrial flutter Code(s): I48.92 - Unspecified atrial flutter Status: Acute (3) Obstructive sleep apnea Code(s): G47.33 - Obstructive sleep apnea (adult) (pediatric) Status: Chronic (4) BMI 50.0-59.9, adult Code(s): Z68.43 - Body mass index (BMI) 50-59.9, adult Status: Chronic (5) Coronary artery disease Code(s): I25.10 - Atherosclerotic heart disease of semin[place] coronary artery without angina pectoris Status: Chronic (6) 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 Code(s): E11.9 - Type 2 diabetes mellitus without complications Status: Chronic (7) History of essential hypertension Code(s): Z86.79 - Personal history of other diseases of the circulatory system Status: Chronic (8) Hyperlipidemia Code(s): E78.5 - Hyperlipidemia, unspecified Status: Chronic (9) Chronic kidney disease Code(s): N18.9 - Chronic kidney disease, unspecified Status: Acute (10) Depression Code(s): F32.9 - Major depressive disorder, single episode, unspecified Status : Chronic - Plan Patient is more alert today and answers questions appropriately, neurology evaluation in progress. Patient is in chronic atrial flutter with controlled ventricular response, we will continue current treatment plan for rate control. Recommend to switch to anticoagulation with warfarin. Still with increased O2 requirements. Plan discussed with patient and family. We will continue to monitor the patient during his hospitalization. He will follow up with his primary material liaison, Dr. Booth when discharged from the hospital. The patient was seen and evaluated by Dr. Hall who participated in care, management and decision making. - Attending Attestation Patient seen and examined. I reviewed and agree with the evaluation and plan as presented. Continue rate control and anticoagulation. Switch to warfarin. Increase activity, PT. D/w pt and family. Procedures - Arterial Line Size (Gauge): 20 (5) Coronary artery disease Qualifiers: Coronary Disease-Associated Artery/Lesion type: unspecified vessel or lesion type [place] vs. 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
--- NOTE | 2018-03-13 16:22 | P.PNIM ---
Subjective Interval history: Patient is laying down in bed. He does not appear to be in any acute distress. He is responding to my questions and commands appropriately. Physical Exam Vital signs: Vital Signs 03/12/18 18:00 03/12/18 19:39 03/12/18 20:00 Temperature 98.8 F Pulse Rate 87 87 Respiratory Rate 23 Blood Pressure 119/58 L Pulse Oximetry 93 L 100 03/12/18 20:46 03/12/18 22:00 03/12/18 23:53 Temperature Pulse Rate 85 Respiratory Rate Blood Pressure Pulse Oximetry 96 99 03/13/18 00:00 03/13/18 02:00 03/13/18 04:00 Temperature 98.6 F 98.6 F Pulse Rate 84 81 85 Respiratory Rate 15 18 Blood Pressure 113/53 L 114/53 L Pulse Oximetry 99 100 03/13/18 04:17 03/13/18 06:00 03/13/18 08:00 Temperature 98.4 F Pulse Rate 82 88 Respiratory Rate 15 Blood Pressure Pulse Oximetry 100 94 L 03/13/18 08:01 03/13/18 08:30 03/13/18 10:00 Temperature Pulse Rate 99 H 91 H 94 H Respiratory Rate 14 15 Blood Pressure 147/56 H 150/101 H Pulse Oximetry 95 91 L 03/13/18 12:00 03/13/18 12:01 03/13/18 14:00 Temperature 99.0 F Pulse Rate 93 H 94 H 91 H Respiratory Rate 20 17 Blood Pressure 162/64 H 162/64 H Pulse Oximetry 100 99 03/13/18 16:00 Temperature 97.9 F Pulse Rate 70 Respiratory Rate 13 Blood Pressure 125/67 Pulse Oximetry 100 Intake & Output 03/12/18 03/13/18 03/13/18 18:59 06:59 18:59 Intake Total 641.52 / 641.52 628.48 / 628.48 150 / 150 Output Total 2300 / 2300 1999 / 1999 Balance -1658.48 / -1658.48 -1371.52 / -1371.52 150 / 150 Weight 153.3 kg Intake: IV 521.52 / 521.52 278.48 / 278.48 150 / 150 Lasix Inj 100 MG In NS Inj 90 121.2 / 121.2 78.8 / 78.8 100 / 100 ML @ 10 mls/hr IV.CONT .Q10H [facility] Rx#:[id number] Heparin/D5W 25,000 U/250 mL 25, 350.32 / 350.32 149.68 / 149.68 000 unit In 250 ml @ Per Protocol IV.CONT TITRATE PRN Rx #:[id number] Zosyn 2.25 GM Premix 50 ML @ 50 / 50 50 / 50 50 / 50 100 mls/hr IV.SIG Q8H [facility] Rx#: [id number] Oral 120 / 120 350 / 350 Output: Stool 0 / 0 Urine/Stool Mix 0 / 0 Urine Amount (Catheter) 2299 Indwelling Urethral Catheter 2299 Other: Date of Last Bowel Movement 03/12/18 03/12/18 03/12/18 # Bowel Movements 1 0 # Incontinent Bowel Movements 0 Narrative: General patient currently on BiPAP HEENT extraocular movements are intact, clear oropharyngeal mucosa, no JVD Cardiovascular S1-S2 audible, RRR, no murmurs rubs or gallops Respiratory bibasilar crackles Abdomen soft, obese, nontender, nondistended, normal bowel sounds Extremities 1+ pitting edema bilateral lower extremities up to the shins. Neuro patient can move all 4 extremities however appears to be weak in all of his extremities lower worse than upper, sensation is intact bilaterally. - Urinary Catheter Management Indwelling Urethral Catheter Cath placed during this visit: yes, but has since been removed by the nurse Reason for continuing: Chronic Urinary Retention Insertion date: 02/26/18 Insertion time: 16:00 Removal date: 02/26/18 Removal time: 15:30 Results - Labs CBC & Chem 7: 03/13/18 05:08 03/13/18 05:08 Laboratory Results - last 24 hr 03/12/18 03/13/18 03/13/18 17:08 02:02 05:08 WBC 10.8 RBC 2.89 L Hgb 8.5 L Hct 24.9 L MCV 86.0 MCH 29.3 MCHC 34.1 RDW 15.3 Plt Count 183 MPV 8.5 APTT Sodium Potassium Chloride Carbon Dioxide Anion Gap BUN Creatinine Estimated GFR POC Glucose 186 H 153 H Random Glucose Calcium Phosphorus Magnesium Total Bilirubin AST ALT Alkaline Phosphatase Total Protein Albumin 12/24/18 12/24/18 12/24/18 05:08 07:29 08:26 WBC RBC Hgb Hct MCV MCH MCHC RDW Plt Count MPV APTT 41.2 H D Sodium 139 Potassium 3.7 Chloride 97 L Carbon Dioxide 30.9 Anion Gap 11 BUN 21 H Creatinine 3.03 H Estimated GFR 21 L POC Glucose 168 H Random Glucose 136 H Calcium 8.4 L Phosphorus 4.0 Magnesium 1.6 Total Bilirubin 0.4 AST 11 L ALT 14 Alkaline Phosphatase 127 H Total Protein 6.6 Albumin 2.4 L 03/13/18 11:19 WBC RBC Hgb Hct MCV MCH MCHC RDW Plt Count MPV APTT Sodium Potassium Chloride Carbon Dioxide Anion Gap BUN Creatinine Estimated GFR POC Glucose 183 H Random Glucose Calcium Phosphorus Magnesium Total Bilirubin AST ALT Alkaline Phosphatase Total Protein Albumin Assessment and Plan - Assessment (1) Acute renal failure Code(s): N17.9 - Acute kidney failure, unspecified Status: Acute (2) Chronic kidney disease Code(s): N18.9 - Chronic kidney disease, unspecified Status: Acute (3) Shock Code(s): R57.9 - Shock, unspecified Status: Acute (4) BMI 50.0-59.9, adult Code(s): Z68.43 - Body mass index (BMI) 50-59.9, adult Status: Chronic (5) 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 Code(s): E11.9 - Type 2 diabetes mellitus without complications Status: Chronic - Plan This patient is a 72-year-old male with a diagnosis of morbid obesity , depression, dementia, coronary artery disease, hypertension, dyslipidemia, diabetes, atrial fibrillation, hypothyroidism, peripheral neuropathy, chronic kidney disease stage IV, patient has a history of chronic opiate use. The patient was initially sent from [facility] where he was found to have altered mental status, low blood pressure and a heart rate in the 30s and was given atropine. Patient also had a low systolic blood pressure and needed IV pressors. Patient was also in acute kidney injury with elevated potassium which was not improving with treatment and needed hemodialysis. Neuro/psych Acute metabolic encephalopathy History of TIA Depression Peripheral neuropathy secondary to diabetes Dementia Patient is awake and appears to be oriented to person and place. Continue memantine 5 mg daily for dementia. Continue gabapentin. Psych: The patient for depression, Cymbalta dose was increased. Namenda dose increased. Seroquel added to the patient's medication regimen. Patient's encephalopathy has improved. Patient has history of TIA, continue statin, patient currently on heparin drip which will likely be changed to a anticoagulant given his atrial fibrillation/ flutter. Cardiovascular Sinus bradycardia resolved Atrial flutter/atrial fibrillation Dyslipidemia Coronary artery disease Congestive heart failure with preserved ejection fraction Heart rate under control. Continue amiodarone. Currently not on any AV emilie blocking agents as patient initially presented with severe bradycardia. Cardiology following the patient and recommends switching to warfarin. Patient has atrial fibrillation, no need to bridge the patient over to warfarin. DC heparin drip. Discussed with pharmacy, will start the patient on 5 mg of warfarin daily starting today. PT/INR ordered for tomorrow a.m., will closely monitor as patient is also on amiodarone. Pharmacy will help adjust Coumadin dosing. Continue statin Currently on Lasix drip, nephrology also following. Strict ins and outs. Respiratory Obstructive sleep apnea Right-sided pleural effusion status post thoracentesis Patient requiring BiPAP throughout the day on and off. Continue BiPAP at night. Patient is status post right-sided thoracentesis. Pulmonary following the patient, will continue to follow with the recommendations. I will DC antibiotics. Patient has been on IV antibiotics since 02/26/2018. Endocrine Diabetes Hypothyroidism Continue levothyroxine. Blood sugars have been running between 140s and 190s. Case discussed with the nurse and the patient is eating some of his meals however his appetite still not adequate. We will continue to monitor his blood sugars and adjust his diabetes regimen as needed. Currently he is not on a sliding scale. Renal Acute kidney injury on chronic kidney disease stage IIIb Serum creatinine is 2.9 as of today. He is currently on a Lasix drip and has made approximately 2 L of urine from this morning. Nephrology following the patient, will continue to follow with the recognitions. DVT prophylaxis, patient is currently on heparin drip. We will switch over to warfarin. Patient is requiring BiPAP throughout the day, will continue to monitor the patient closely here in the intensive care unit. 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
--- NOTE | 2018-03-13 16:36 | P.PNNP ---
Subjective Interval history: Patient seen in Am, with nasal cannula nd intermittently on BIPAP, has moderate SOB. Physical Exam Vital signs: Vital Signs 03/12/18 18:00 03/12/18 19:39 03/12/18 20:00 Temperature 98.8 F Pulse Rate 87 87 Respiratory Rate 23 Blood Pressure 119/58 L Pulse Oximetry 93 L 100 03/12/18 20:46 03/12/18 22:00 03/12/18 23:53 Temperature Pulse Rate 85 Respiratory Rate Blood Pressure Pulse Oximetry 96 99 03/13/18 00:00 03/13/18 02:00 03/13/18 04:00 Temperature 98.6 F 98.6 F Pulse Rate 84 81 85 Respiratory Rate 15 18 Blood Pressure 113/53 L 114/53 L Pulse Oximetry 99 100 03/13/18 04:17 03/13/18 06:00 03/13/18 08:00 Temperature 98.4 F Pulse Rate 82 88 Respiratory Rate 15 Blood Pressure Pulse Oximetry 100 94 L 03/13/18 08:01 03/13/18 08:30 03/13/18 10:00 Temperature Pulse Rate 99 H 91 H 94 H Respiratory Rate 14 15 Blood Pressure 147/56 H 150/101 H Pulse Oximetry 95 91 L 03/13/18 12:00 03/13/18 12:01 03/13/18 14:00 Temperature 99.0 F Pulse Rate 93 H 94 H 91 H Respiratory Rate 20 17 Blood Pressure 162/64 H 162/64 H Pulse Oximetry 100 99 03/13/18 16:00 Temperature 97.9 F Pulse Rate 70 Respiratory Rate 13 Blood Pressure 125/67 Pulse Oximetry 100 Intake & Output 03/12/18 03/13/18 03/13/18 18:59 06:59 18:59 Intake Total 641.52 / 641.52 628.48 / 628.48 150 / 150 Output Total 2300 / 2300 1999 / 1999 Balance -1658.48 / -1658.48 -1371.52 / -1371.52 150 / 150 Weight 153.3 kg Intake: IV 521.52 / 521.52 278.48 / 278.48 150 / 150 Lasix Inj 100 MG In NS Inj 90 121.2 / 121.2 78.8 / 78.8 100 / 100 ML @ 10 mls/hr IV.CONT .Q10H [facility] Rx#:[id number] Heparin/D5W 25,000 U/250 mL 25, 350.32 / 350.32 149.68 / 149.68 000 unit In 250 ml @ Per Protocol IV.CONT TITRATE PRN Rx #:[id number] Zosyn 2.25 GM Premix 50 ML @ 50 / 50 50 / 50 50 / 50 100 mls/hr IV.SIG Q8H ANA Rx#: [id number] Oral 120 / 120 350 / 350 Output: Stool 0 / 0 Urine/Stool Mix 0 / 0 Urine Amount (Catheter) 2299 Indwelling Urethral Catheter 2299 Other: Date of Last Bowel Movement 03/12/18 03/12/18 03/12/18 # Bowel Movements 1 0 # Incontinent Bowel Movements 0 Narrative: GENERAL: 72-year-old obese male off and on, on Bipap, with some sob. SKIN: Warm and dry. Chronic venous stasis bilateral lower extremities CARDIOVASCULAR: Regular rate and rhythm. S1, S2 no S4. RESPIRATORY: Decreased breath sounds. SOB. GASTROINTESTINAL: Abdomen soft, non-tender, obese with large pannus. MUSCULOSKELETAL: Extremities with trace to 1+ bilateral lower extremity edema. NEUROLOGICAL: Moves all 4 extremity spontaneously. Strength slightly weaker in the lower extremities. PSYCHIATRIC: Depressed mood and affect. - Urinary Catheter Management Indwelling Urethral Catheter Cath placed during this visit: yes, but has since been removed by the nurse Reason for continuing: Chronic Urinary Retention Insertion date: 02/26/18 Insertion time: 16:00 Removal date: 02/26/18 Removal time: 15:30 Assessment and Plan - Assessment (1) Acute renal failure Code(s): N17.9 - Acute kidney failure, unspecified Status: Acute (2) Chronic kidney disease Code(s): N18.9 - Chronic kidney disease, unspecified Status: Acute (3) Shock Code(s): R57.9 - Shock, unspecified Status: Acute (4) BMI 50.0-59.9, adult Code(s): Z68.43 - Body mass index (BMI) 50-59.9, adult Status: Chronic (5) Diabetes mellitus Code(s): E11.9 - Type 2 diabetes mellitus without complications Status: Chronic Qualifiers: Qualified Code(s): E11.29 - Type 2 diabetes mellitus with other diabetic kidney complication; Z79.4 - intermediate (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 - Plan Patient with chronic kidney disease and develop PIERRE. Creatinine increasing slowly, now 3.0 On lasix 10mg/hour + albumin Urine out put is good. Continue diuresis with Lasix/albumin, follow labs. Edema improving No need for dialysis at this point, continue supportive care. If Creatinine continue to increase, will decrease Lasix. Procedures - Arterial Line Size (Gauge): 20
[2018-03-13] MEDS ORDERED: Warfarin Consult Pharmacy OTHER PRN (16:45)
[2018-03-13] MEDS ORDERED: Magnesium Sulfate Inj 2 GM in Sodium Chlor 0.9% Inj 96 ML IV.SIG ONE (17:00)
[2018-03-13] MEDS: QUEtiapine 25 MG Tablet PO SCH (20:12)
[2018-03-14] MEDS: Furosemide Inj 100 MG in Sodium Chlor 0.9% Inj 90 ML IV.CONT SCH ×4 (00:16→22:33)
[2018-03-14] MEDS: Artificial Tears Opth Drops 15 ML Bottle EACH EYE SCH ×4 (00:17→22:35)
[2018-03-14 04:10] LABS: Hematocrit 26.1 % (39.0-51.0); Hemoglobin 8.6 gm/dL (13.0-17.0); Mean Corpuscular HGB Conc 33.1 % (32.0-36.0); Mean Corpuscular Hemoglobin 28.7 pg (27.0-34.0); Mean Corpuscular Volume 86.6 fL (80.0-100.0); Mean Platelet Volume 8.4 fL (7.0-11.0); Platelet Count 198 th/mm3 (150-450); Red Blood Count 3.01 mil/mm3 (4.50-5.90); Red Cell Distribution Width 15.4 % (11.6-17.2); White Blood Count 10.4 th/mm3 (4.0-11.0)
[2018-03-14 04:19] LABS: INR 1.2 Ratio; Prothrombin Time 12.3 sec (9.8-11.6)
[2018-03-14 04:40] LABS: Albumin 2.3 g/dL (3.4-5.0); Anion Gap 8 meq/L (5-15); Aspartate Aminotransferase 11 U/L (15-37); Blood Urea Nitrogen 20 mg/dL (7-18); Calcium 8.3 mg/dL (8.5-10.1); Carbon Dioxide 31.8 meq/L (21.0-32.0); Chloride 97 meq/L (98-107); Glomerular Filtration Rate 21 mL/min (>89); Glucose,Random 132 mg/dL (74-106); Sodium 137 meq/L (136-145)
[2018-03-14 04:45] LABS: Alanine Aminotransferase 13 U/L (12-78); Alkaline Phosphatase 125 U/L (45-117); Phosphorus 4.1 mg/dL (2.5-4.9); Total Protein 6.8 g/dL (6.4-8.2)
[2018-03-14] MEDS: Levothyroxine 50 MCG Tablet PO SCH (06:02)
[2018-03-14] MEDS: Oral Hygiene Kit OROPHARYNG SCH ×4 (06:05→15:08)
[2018-03-14] MEDS: Ascorbic Acid 500 MG Tablet PO SCH ×2 (08:22→20:30)
[2018-03-14] MEDS: Potassium Chloride 25 MEQ Effervescent Tablet PO SCH ×2 (08:22→20:29)
[2018-03-14] MEDS: Amiodarone 200 MG Tablet PO SCH (08:22)
[2018-03-14] MEDS: Nystatin 100,000 UNITS/GM Powder 15 GM Bottle TOPICAL SCH ×2 (08:22→20:29)
[2018-03-14] MEDS: Chlorhexidine 0.12% Oral Kit 15 ML UDC OROPHARYNG SCH ×2 (08:22→20:28)
[2018-03-14] MEDS: Gabapentin 100 MG Capsule PO SCH ×2 (08:22→20:29)
[2018-03-14] MEDS: Senna/Docusate Sodium 8.6/50 MG Tablet PO SCH ×2 (08:23→20:30)
--- NOTE | 2018-03-14 10:39 | P.PNIM ---
Subjective Interval history: Patient is awake. Responding to my questions and commands. As per the nursing staff patient gets anxious occasionally when off of bipap. Physical Exam Vital signs: Vital Signs 03/13/18 12:00 03/13/18 12:01 03/13/18 14:00 Temperature 99.0 F Pulse Rate 93 H 94 H 91 H Respiratory Rate 20 17 Blood Pressure 162/64 H 162/64 H Pulse Oximetry 100 99 03/13/18 16:00 03/13/18 16:01 03/13/18 16:30 Temperature 97.9 F Pulse Rate 70 61 83 Respiratory Rate 13 0 L 19 Blood Pressure 125/67 125/67 141/63 H Pulse Oximetry 100 100 97 03/13/18 17:00 03/13/18 17:28 03/13/18 17:30 Temperature Pulse Rate 87 88 89 Respiratory Rate 15 4 L 14 Blood Pressure 127/60 132/59 L Pulse Oximetry 99 100 98 03/13/18 18:00 03/13/18 18:31 03/13/18 19:00 Temperature Pulse Rate 77 86 88 Respiratory Rate 8 L 13 40 H Blood Pressure 141/59 H 131/63 133/83 Pulse Oximetry 100 100 99 03/13/18 19:31 03/13/18 20:00 03/13/18 20:30 Temperature 98.4 F Pulse Rate 88 90 89 Respiratory Rate 24 24 40 H Blood Pressure 102/52 L 117/55 L 124/60 Pulse Oximetry 100 100 100 03/13/18 20:35 03/13/18 20:38 03/13/18 21:00 Temperature Pulse Rate 87 Respiratory Rate 15 Blood Pressure 146/64 H Pulse Oximetry 100 100 97 03/13/18 21:30 03/13/18 22:00 03/13/18 22:16 Temperature Pulse Rate 79 82 79 Respiratory Rate 14 16 13 Blood Pressure 166/115 H 121/84 Pulse Oximetry 98 99 99 03/13/18 22:31 03/13/18 23:00 03/14/18 00:00 Temperature 98.4 F Pulse Rate 78 82 71 Respiratory Rate 13 15 14 Blood Pressure 125/58 L 137/81 Pulse Oximetry 99 99 99 03/14/18 00:01 03/14/18 00:14 03/14/18 00:31 Temperature Pulse Rate 72 75 Respiratory Rate 7 L 8 L Blood Pressure 159/64 H 157/67 H Pulse Oximetry 100 98 100 03/14/18 01:00 03/14/18 01:01 03/14/18 01:31 Temperature Pulse Rate 77 82 82 Respiratory Rate 2 L 3 L 15 Blood Pressure 166/61 H 150/55 H Pulse Oximetry 100 99 97 03/14/18 02:00 03/14/18 02:01 03/14/18 02:30 Temperature Pulse Rate 81 82 82 Respiratory Rate 9 L 23 11 L Blood Pressure 129/60 136/58 L Pulse Oximetry 100 88 L 100 03/14/18 03:00 03/14/18 03:01 03/14/18 03:31 Temperature Pulse Rate 87 86 90 Respiratory Rate 9 L 11 L 7 L Blood Pressure 170/123 H 151/60 H Pulse Oximetry 100 100 100 03/14/18 04:00 03/14/18 04:17 03/14/18 04:31 Temperature 98.6 F Pulse Rate 90 89 Respiratory Rate 12 5 L Blood Pressure 158/63 H 145/64 H Pulse Oximetry 100 96 99 03/14/18 05:00 03/14/18 05:01 03/14/18 05:30 Temperature Pulse Rate 88 88 95 H Respiratory Rate 16 17 25 H Blood Pressure 146/65 H 152/58 H Pulse Oximetry 100 100 98 03/14/18 06:00 03/14/18 06:31 03/14/18 07:00 Temperature Pulse Rate 90 90 95 H Respiratory Rate 12 35 H 38 H Blood Pressure 161/59 H 143/64 H Pulse Oximetry 100 100 98 03/14/18 07:01 03/14/18 07:31 03/14/18 08:00 Temperature 98.4 F Pulse Rate 93 H 90 91 H Respiratory Rate 37 H 16 21 Blood Pressure 164/106 H 157/61 H 157/63 H Pulse Oximetry 97 100 95 03/14/18 08:32 03/14/18 09:00 03/14/18 09:01 Temperature Pulse Rate 91 H 89 90 Respiratory Rate 30 H 41 H 32 H Blood Pressure 178/72 H 172/68 H Pulse Oximetry 100 99 98 03/14/18 10:00 Temperature Pulse Rate 90 Respiratory Rate Blood Pressure Pulse Oximetry Intake & Output 03/13/18 03/14/18 03/14/18 18:59 06:59 18:59 Intake Total 605 / 605 578 / 578 Output Total 2750 / 2750 2149 / 2149 Balance -2145 / -2145 -1572 / -1572 Weight 153.3 kg Intake: IV 405 / 405 158 / 158 Lasix Inj 100 MG In NS Inj 90 142 / 142 158 / 158 ML @ 10 mls/hr IV.CONT .Q10H [facility] Rx#:[id number] Heparin/D5W 25,000 U/250 mL 25, 163 / 163 000 unit In 250 ml @ Per Protocol IV.CONT TITRATE PRN Rx #:[id number] Zosyn 2.25 GM Premix 50 ML @ 100 / 100 100 mls/hr IV.SIG Q8H [facility] Rx#: [id number] Oral 200 / 200 420 / 420 Output: Urine 2750 / 2750 Urine Amount (Catheter) 2149 Indwelling Urethral Catheter 2149 Other: Date of Last Bowel Movement 03/13/18 03/13/18 03/14/18 # Bowel Movements 1 Narrative: General patient currently on BiPAP HEENT extraocular movements are intact, clear oropharyngeal mucosa, no JVD Cardiovascular S1-S2 audible, RRR, no murmurs rubs or gallops Respiratory bibasilar crackles Abdomen soft, obese, nontender, nondistended, normal bowel sounds Extremities 1+ pitting edema bilateral lower extremities up to the shins. Neuro patient can move all 4 extremities however appears to be weak in all of his extremities lower worse than upper, sensation is intact bilaterally. - Urinary Catheter Management Indwelling Urethral Catheter Cath placed during this visit: yes, but has since been removed by the nurse Reason for continuing: Chronic Urinary Retention Insertion date: 02/26/18 Insertion time: 16:00 Removal date: 02/26/18 Removal time: 15:30 Results - Labs CBC & Chem 7: 03/14/18 03:15 03/14/18 03:15 Laboratory Results - last 24 hr 03/13/18 03/13/18 03/13/18 11:19 16:37 22:45 WBC RBC Hgb Hct MCV MCH MCHC RDW Plt Count MPV PT INR APTT Sodium Potassium Chloride Carbon Dioxide Anion Gap BUN Creatinine Estimated GFR POC Glucose 183 H 162 H 156 H Random Glucose Calcium Phosphorus Magnesium Total Bilirubin AST ALT Alkaline Phosphatase Total Protein Albumin 03/14/18 03/14/18 03/14/18 03:15 03:15 03:15 WBC 10.4 RBC 3.01 L Hgb 8.6 L Hct 26.1 L MCV 86.6 MCH 28.7 MCHC 33.1 RDW 15.4 Plt Count 198 MPV 8.4 PT 12.3 H INR 1.2 APTT Sodium 137 Potassium 4.0 Chloride 97 L Carbon Dioxide 31.8 Anion Gap 8 BUN 20 H Creatinine 3.00 H Estimated GFR 21 L POC Glucose Random Glucose 132 H Calcium 8.3 L Phosphorus 4.1 Magnesium 2.0 Total Bilirubin 0.4 AST 11 L ALT 13 Alkaline Phosphatase 125 H Total Protein 6.8 Albumin 2.3 L 03/14/18 08:04 WBC RBC Hgb Hct MCV MCH MCHC RDW Plt Count MPV PT INR APTT 33.4 H Sodium Potassium Chloride Carbon Dioxide Anion Gap BUN Creatinine Estimated GFR POC Glucose Random Glucose Calcium Phosphorus Magnesium Total Bilirubin AST ALT Alkaline Phosphatase Total Protein Albumin Assessment and Plan - Assessment (1) Acute renal failure Code(s): N17.9 - Acute kidney failure, unspecified Status: Acute (2) Chronic kidney disease Code(s): N18.9 - Chronic kidney disease, unspecified Status: Acute (3) Shock Code(s): R57.9 - Shock, unspecified Status: Acute (4) BMI 50.0-59.9, adult Code(s): Z68.43 - Body mass index (BMI) 50-59.9, adult Status: Chronic (5) Diabetes mellitus Code(s): E11.9 - Type 2 diabetes mellitus without complications Status: Chronic - Plan This patient is a 72-year-old male with a diagnosis of morbid obesity , depression, dementia, coronary artery disease, hypertension, dyslipidemia, diabetes, atrial fibrillation, hypothyroidism, peripheral neuropathy, chronic kidney disease stage IV, patient has a history of chronic opiate use. The patient was initially sent from [facility] where he was found to have altered mental status, low blood pressure and a heart rate in the 30s and was given atropine. Patient also had a low systolic blood pressure and needed IV pressors. Patient was also in acute kidney injury with elevated potassium which was not improving with treatment and needed hemodialysis. Neuro/psych Acute metabolic encephalopathy History of TIA Depression Peripheral neuropathy secondary to diabetes Dementia Patient is awake and appears to be oriented to person and place. Continue memantine 5 mg daily for dementia. Continue gabapentin. Psych: The patient for depression, Cymbalta dose was increased. Namenda dose increased. Seroquel added to the patient's medication regimen. Patient's encephalopathy has improved. Patient has history of TIA, continue statin, patient currently on heparin drip which will likely be changed to a anticoagulant given his atrial fibrillation/ flutter. Cardiovascular Sinus bradycardia resolved Atrial flutter/atrial fibrillation Dyslipidemia Coronary artery disease Congestive heart failure with preserved ejection fraction Heart rate under control. Continue amiodarone. Currently not on any AV emilie blocking agents as patient initially presented with severe bradycardia. Cardiology following the patient and recommended switching to warfarin. Patient has atrial fibrillation, no need to bridge. INR 1.2 as of today. On coumadin 5mg daily. Pharmacy following and adjusting. PT/INR ordered for tomorrow a.m., will closely monitor as patient is also on amiodarone. Continue statin Currently on Lasix drip, albumin, nephrology also following. Strict ins and outs. Respiratory Obstructive sleep apnea Right-sided pleural effusion status post thoracentesis Patient requiring BiPAP throughout the day on and off. Continue BiPAP at night. Patient is status post right-sided thoracentesis. Pulmonary following the patient, will continue to follow with the recommendations. I will DC antibiotics. Patient has been on IV antibiotics since 02/26/2018. Endocrine Diabetes Hypothyroidism Continue levothyroxine. Blood sugars have been running between 130s and 160s. Case and plan discussed with the nurse. No sliding scale for now, blood sugars acceptable. Renal Acute kidney injury on chronic kidney disease stage IIIb Serum creatinine is 3.0 as of today. He is currently on a Lasix drip and albumin. Nephrology following the patient, will continue to follow with the recognitions. DVT prophylaxis, patient is on coumadin. Patient is requiring BiPAP throughout the day, will continue to monitor the patient closely here in the intensive care unit. 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
--- NOTE | 2018-03-14 13:10 | P.PN ---
Subjective Interval history: MORE ALERT NAD Physical Exam Vital signs: Vital Signs 03/13/18 14:00 03/13/18 16:00 03/13/18 16:01 Temperature 97.9 F Pulse Rate 91 H 70 61 Respiratory Rate 13 0 L Blood Pressure 125/67 125/67 Pulse Oximetry 100 100 03/13/18 16:30 03/13/18 17:00 03/13/18 17:28 Temperature Pulse Rate 83 87 88 Respiratory Rate 19 15 4 L Blood Pressure 141/63 H 127/60 Pulse Oximetry 97 99 100 03/13/18 17:30 03/13/18 18:00 03/13/18 18:31 Temperature Pulse Rate 89 77 86 Respiratory Rate 14 8 L 13 Blood Pressure 132/59 L 141/59 H 131/63 Pulse Oximetry 98 100 100 03/13/18 19:00 03/13/18 19:31 03/13/18 20:00 Temperature 98.4 F Pulse Rate 88 88 90 Respiratory Rate 40 H 24 24 Blood Pressure 133/83 102/52 L 117/55 L Pulse Oximetry 99 100 100 03/13/18 20:30 03/13/18 20:35 03/13/18 20:38 Temperature Pulse Rate 89 Respiratory Rate 40 H Blood Pressure 124/60 Pulse Oximetry 100 100 100 03/13/18 21:00 03/13/18 21:30 03/13/18 22:00 Temperature Pulse Rate 87 79 82 Respiratory Rate 15 14 16 Blood Pressure 146/64 H 166/115 H Pulse Oximetry 97 98 99 03/13/18 22:16 03/13/18 22:31 03/13/18 23:00 Temperature Pulse Rate 79 78 82 Respiratory Rate 13 13 15 Blood Pressure 121/84 125/58 L 137/81 Pulse Oximetry 99 99 99 03/14/18 00:00 03/14/18 00:01 03/14/18 00:14 Temperature 98.4 F Pulse Rate 71 72 Respiratory Rate 14 7 L Blood Pressure 159/64 H Pulse Oximetry 99 100 98 03/14/18 00:31 03/14/18 01:00 03/14/18 01:01 Temperature Pulse Rate 75 77 82 Respiratory Rate 8 L 2 L 3 L Blood Pressure 157/67 H 166/61 H Pulse Oximetry 100 100 99 03/14/18 01:31 03/14/18 02:00 03/14/18 02:01 Temperature Pulse Rate 82 81 82 Respiratory Rate 15 9 L 23 Blood Pressure 150/55 H 129/60 Pulse Oximetry 97 100 88 L 03/14/18 02:30 03/14/18 03:00 03/14/18 03:01 Temperature Pulse Rate 82 87 86 Respiratory Rate 11 L 9 L 11 L Blood Pressure 136/58 L 170/123 H Pulse Oximetry 100 100 100 03/14/18 03:31 03/14/18 04:00 03/14/18 04:17 Temperature 98.6 F Pulse Rate 90 90 Respiratory Rate 7 L 12 Blood Pressure 151/60 H 158/63 H Pulse Oximetry 100 100 96 03/14/18 04:31 03/14/18 05:00 03/14/18 05:01 Temperature Pulse Rate 89 88 88 Respiratory Rate 5 L 16 17 Blood Pressure 145/64 H 146/65 H Pulse Oximetry 99 100 100 03/14/18 05:30 03/14/18 06:00 03/14/18 06:31 Temperature Pulse Rate 95 H 90 90 Respiratory Rate 25 H 12 35 H Blood Pressure 152/58 H 161/59 H 143/64 H Pulse Oximetry 98 100 100 03/14/18 07:00 03/14/18 07:01 03/14/18 07:31 Temperature Pulse Rate 95 H 93 H 90 Respiratory Rate 38 H 37 H 16 Blood Pressure 164/106 H 157/61 H Pulse Oximetry 98 97 100 03/14/18 08:00 03/14/18 08:32 03/14/18 09:00 Temperature 98.4 F Pulse Rate 91 H 91 H 89 Respiratory Rate 21 30 H 41 H Blood Pressure 157/63 H 178/72 H Pulse Oximetry 95 100 99 03/14/18 09:01 03/14/18 10:00 03/14/18 11:00 Temperature Pulse Rate 90 90 89 Respiratory Rate 32 H 21 Blood Pressure 172/68 H Pulse Oximetry 98 99 03/14/18 11:01 03/14/18 12:00 03/14/18 12:01 Temperature 98.3 F Pulse Rate 91 H 90 89 Respiratory Rate 23 36 H 29 H Blood Pressure 179/67 H 170/79 H Pulse Oximetry 100 99 98 Intake & Output 03/13/18 03/14/18 03/14/18 18:59 06:59 18:59 Intake Total 605 / 605 578 / 578 100 / 100 Output Total 2750 / 2750 2149 / 2149 Balance -2145 / -2145 -1572 / -1572 100 / 100 Weight 153.3 kg Intake: IV 405 / 405 158 / 158 100 / 100 Lasix Inj 100 MG In NS Inj 90 142 / 142 158 / 158 100 / 100 ML @ 10 mls/hr IV.CONT .Q10H [facility] Rx#:[id number] Heparin/D5W 25,000 U/250 mL 25, 163 / 163 000 unit In 250 ml @ Per Protocol IV.CONT TITRATE PRN Rx #:[id number] Zosyn 2.25 GM Premix 50 ML @ 100 / 100 100 mls/hr IV.SIG Q8H [facility] Rx#: [id number] Oral 200 / 200 420 / 420 Output: Urine 2750 / 2750 Urine Amount (Catheter) 2149 Indwelling Urethral Catheter 2149 Other: Date of Last Bowel Movement 03/13/18 03/13/18 03/14/18 # Bowel Movements 1 Narrative: General patient currently on BiPAP HEENT extraocular movements are intact, clear oropharyngeal mucosa, no JVD Cardiovascular S1-S2 audible, RRR, no murmurs rubs or gallops Respiratory bibasilar crackles Abdomen soft, obese, nontender, nondistended, normal bowel sounds Extremities 1+ pitting edema bilateral lower extremities up to the shins. Neuro patient can move all 4 extremities however appears to be weak in all of his extremities lower worse than upper, sensation is intact bilaterally. - Urinary Catheter Management Indwelling Urethral Catheter Cath placed during this visit: yes, but has since been removed by the nurse Reason for continuing: Chronic Urinary Retention Insertion date: 02/26/18 Insertion time: 16:00 Removal date: 02/26/18 Removal time: 15:30 Results - Labs CBC & Chem 7: 03/14/18 03:15 03/14/18 03:15 Laboratory Results - last 24 hr 03/13/18 03/13/18 03/14/18 16:37 22:45 03:15 WBC 10.4 RBC 3.01 L Hgb 8.6 L Hct 26.1 L MCV 86.6 MCH 28.7 MCHC 33.1 RDW 15.4 Plt Count 198 MPV 8.4 PT INR APTT Sodium Potassium Chloride Carbon Dioxide Anion Gap BUN Creatinine Estimated GFR POC Glucose 162 H 156 H Random Glucose Calcium Phosphorus Magnesium Total Bilirubin AST ALT Alkaline Phosphatase Total Protein Albumin 03/14/18 03/14/18 03/14/18 03:15 03:15 08:04 WBC RBC Hgb Hct MCV MCH MCHC RDW Plt Count MPV PT 12.3 H INR 1.2 APTT 33.4 H Sodium 137 Potassium 4.0 Chloride 97 L Carbon Dioxide 31.8 Anion Gap 8 BUN 20 H Creatinine 3.00 H Estimated GFR 21 L POC Glucose Random Glucose 132 H Calcium 8.3 L Phosphorus 4.1 Magnesium 2.0 Total Bilirubin 0.4 AST 11 L ALT 13 Alkaline Phosphatase 125 H Total Protein 6.8 Albumin 2.3 L Assessment and Plan - Plan RESPIRATORY FAILURE RENAL FAILURE SEPSIS MIRTA/CSA PLAN O2 NEEDED BIPAP/SLEEP increase activity Procedures - Arterial Line Size (Gauge): 20
--- NOTE | 2018-03-14 17:36 | P.PNNP ---
Subjective Interval history: Patient is alert, with nasal cannula and off and on on BIPAP, has mild SOB, no chest pain. Physical Exam Vital signs: Vital Signs 03/13/18 18:00 03/13/18 18:31 03/13/18 19:00 Temperature Pulse Rate 77 86 88 Respiratory Rate 8 L 13 40 H Blood Pressure 141/59 H 131/63 133/83 Pulse Oximetry 100 100 99 03/13/18 19:31 03/13/18 20:00 03/13/18 20:30 Temperature 98.4 F Pulse Rate 88 90 89 Respiratory Rate 24 24 40 H Blood Pressure 102/52 L 117/55 L 124/60 Pulse Oximetry 100 100 100 03/13/18 20:35 03/13/18 20:38 03/13/18 21:00 Temperature Pulse Rate 87 Respiratory Rate 15 Blood Pressure 146/64 H Pulse Oximetry 100 100 97 03/13/18 21:30 03/13/18 22:00 03/13/18 22:16 Temperature Pulse Rate 79 82 79 Respiratory Rate 14 16 13 Blood Pressure 166/115 H 121/84 Pulse Oximetry 98 99 99 03/13/18 22:31 03/13/18 23:00 03/14/18 00:00 Temperature 98.4 F Pulse Rate 78 82 71 Respiratory Rate 13 15 14 Blood Pressure 125/58 L 137/81 Pulse Oximetry 99 99 99 03/14/18 00:01 03/14/18 00:14 03/14/18 00:31 Temperature Pulse Rate 72 75 Respiratory Rate 7 L 8 L Blood Pressure 159/64 H 157/67 H Pulse Oximetry 100 98 100 03/14/18 01:00 03/14/18 01:01 03/14/18 01:31 Temperature Pulse Rate 77 82 82 Respiratory Rate 2 L 3 L 15 Blood Pressure 166/61 H 150/55 H Pulse Oximetry 100 99 97 03/14/18 02:00 03/14/18 02:01 03/14/18 02:30 Temperature Pulse Rate 81 82 82 Respiratory Rate 9 L 23 11 L Blood Pressure 129/60 136/58 L Pulse Oximetry 100 88 L 100 03/14/18 03:00 03/14/18 03:01 03/14/18 03:31 Temperature Pulse Rate 87 86 90 Respiratory Rate 9 L 11 L 7 L Blood Pressure 170/123 H 151/60 H Pulse Oximetry 100 100 100 03/14/18 04:00 03/14/18 04:17 03/14/18 04:31 Temperature 98.6 F Pulse Rate 90 89 Respiratory Rate 12 5 L Blood Pressure 158/63 H 145/64 H Pulse Oximetry 100 96 99 03/14/18 05:00 03/14/18 05:01 03/14/18 05:30 Temperature Pulse Rate 88 88 95 H Respiratory Rate 16 17 25 H Blood Pressure 146/65 H 152/58 H Pulse Oximetry 100 100 98 03/14/18 06:00 03/14/18 06:31 03/14/18 07:00 Temperature Pulse Rate 90 90 95 H Respiratory Rate 12 35 H 38 H Blood Pressure 161/59 H 143/64 H Pulse Oximetry 100 100 98 03/14/18 07:01 03/14/18 07:31 03/14/18 08:00 Temperature 98.4 F Pulse Rate 93 H 90 91 H Respiratory Rate 37 H 16 21 Blood Pressure 164/106 H 157/61 H 157/63 H Pulse Oximetry 97 100 95 03/14/18 08:32 03/14/18 09:00 03/14/18 09:01 Temperature Pulse Rate 91 H 89 90 Respiratory Rate 30 H 41 H 32 H Blood Pressure 178/72 H 172/68 H Pulse Oximetry 100 99 98 03/14/18 10:00 03/14/18 11:00 03/14/18 11:01 Temperature Pulse Rate 90 89 91 H Respiratory Rate 21 23 Blood Pressure 179/67 H Pulse Oximetry 99 100 03/14/18 12:00 03/14/18 12:01 03/14/18 13:00 Temperature 98.3 F Pulse Rate 90 89 89 Respiratory Rate 36 H 29 H 37 H Blood Pressure 170/79 H Pulse Oximetry 99 98 99 03/14/18 13:01 03/14/18 14:00 03/14/18 14:01 Temperature Pulse Rate 91 H 91 H 90 Respiratory Rate 35 H 28 H 38 H Blood Pressure 173/67 H 162/63 H Pulse Oximetry 99 95 95 03/14/18 15:00 03/14/18 16:00 03/14/18 16:18 Temperature 98.4 F Pulse Rate 90 91 H 93 H Respiratory Rate 24 25 H 35 H Blood Pressure 179/97 H 142/65 H Pulse Oximetry 96 95 96 Intake & Output 03/13/18 03/14/18 03/14/18 18:59 06:59 18:59 Intake Total 605 / 605 578 / 578 100 / 100 Output Total 2750 / 2750 2149 / 0 Balance -2145 / -2145 -1572 / -1572 100 / 100 Weight 153.3 kg Intake: IV 405 / 405 158 / 158 100 / 100 Lasix Inj 100 MG In NS Inj 90 142 / 142 158 / 158 100 / 100 ML @ 10 mls/hr IV.CONT .Q10H [facility] Rx#:[id number] Heparin/D5W 25,000 U/250 mL 25, 163 / 163 000 unit In 250 ml @ Per Protocol IV.CONT TITRATE PRN Rx #:[id number] Zosyn 2.25 GM Premix 50 ML @ 100 / 100 100 mls/hr IV.SIG Q8H [facility] Rx#: [id number] Oral 200 / 200 420 / 420 Output: Urine 2750 / 2750 Urine Amount (Catheter) 2149 Indwelling Urethral Catheter 2149 Other: Date of Last Bowel Movement 03/13/18 03/13/18 03/14/18 # Bowel Movements 1 Narrative: General patient currently on BiPAP HEENT extraocular movements are intact, clear oropharyngeal mucosa, no JVD Cardiovascular S1-S2 audible, RRR, no murmurs rubs or gallops Respiratory bibasilar crackles Abdomen soft, obese, nontender, nondistended, normal bowel sounds Extremities 1+ pitting edema bilateral lower extremities up to the shins. Neuro patient can move all 4 extremities however appears to be weak in all of his extremities lower worse than upper, sensation is intact bilaterally. - Urinary Catheter Management Indwelling Urethral Catheter Cath placed during this visit: yes, but has since been removed by the nurse Reason for continuing: Chronic Urinary Retention Insertion date: 02/26/18 Insertion time: 16:00 Removal date: 02/26/18 Removal time: 15:30 Assessment and Plan - Assessment (1) Acute renal failure Code(s): N17.9 - Acute kidney failure, unspecified Status: Acute (2) Chronic kidney disease Code(s): N18.9 - Chronic kidney disease, unspecified Status: Acute (3) Shock Code(s): R57.9 - Shock, unspecified Status: Acute (4) BMI 50.0-59.9, adult Code(s): Z68.43 - Body mass index (BMI) 50-59.9, adult Status: Chronic (5) Diabetes mellitus Code(s): E11.9 - Type 2 diabetes mellitus without complications Status: Chronic Qualifiers: Diabetes mellitus type: type 2 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 Creatinine inow same at 3.0 On lasix 10mg/hour + albumin Urine out put is good. Continue diuresis with Lasix/albumin, follow labs. Edema improving No need for dialysis at this point, continue supportive care. If Creatinine continue to increase, will decrease Lasix. Continue Lasix infusion and try to keep in negative fluid balance. Procedures - Arterial Line Size (Gauge): 20
[2018-03-14] MEDS: QUEtiapine 25 MG Tablet PO SCH (20:30)
[2018-03-15] MEDS: Oral Hygiene Kit OROPHARYNG SCH ×5 (00:21→23:13)
[2018-03-15 05:23] LABS: Hematocrit 26.1 % (39.0-51.0); Hemoglobin 8.9 gm/dL (13.0-17.0); Mean Corpuscular HGB Conc 34.3 % (32.0-36.0); Mean Corpuscular Hemoglobin 29.6 pg (27.0-34.0); Mean Corpuscular Volume 86.3 fL (80.0-100.0); Mean Platelet Volume 8.5 fL (7.0-11.0); Platelet Count 187 th/mm3 (150-450); Red Blood Count 3.02 mil/mm3 (4.50-5.90); Red Cell Distribution Width 15.3 % (11.6-17.2); White Blood Count 8.8 th/mm3 (4.0-11.0)
[2018-03-15] MEDS: Levothyroxine 50 MCG Tablet PO SCH (05:28)
[2018-03-15 05:45] LABS: INR 1.5 Ratio; Prothrombin Time 15.2 sec (9.8-11.6)
[2018-03-15 05:48] LABS: Albumin 2.4 g/dL (3.4-5.0); Anion Gap 8 meq/L (5-15); Aspartate Aminotransferase 13 U/L (15-37); Blood Urea Nitrogen 23 mg/dL (7-18); Calcium 8.8 mg/dL (8.5-10.1); Carbon Dioxide 33.4 meq/L (21.0-32.0); Chloride 97 meq/L (98-107); Glomerular Filtration Rate 21 mL/min (>89); Glucose,Random 112 mg/dL (74-106); Magnesium 1.9 mg/dL (1.5-2.5); Potassium 4.2 meq/L (3.5-5.1); Sodium 138 meq/L (136-145)
[2018-03-15 05:52] LABS: Alanine Aminotransferase 12 U/L (12-78); Alkaline Phosphatase 120 U/L (45-117); Total Protein 6.7 g/dL (6.4-8.2)
[2018-03-15] MEDS: Artificial Tears Opth Drops 15 ML Bottle EACH EYE SCH ×3 (07:29→23:13)
[2018-03-15] MEDS: Senna/Docusate Sodium 8.6/50 MG Tablet PO SCH ×2 (08:44→20:12)
[2018-03-15] MEDS: Ascorbic Acid 500 MG Tablet PO SCH ×2 (08:44→20:12)
[2018-03-15] MEDS: Amiodarone 200 MG Tablet PO SCH (08:44)
[2018-03-15] MEDS: Furosemide Inj 100 MG in Sodium Chlor 0.9% Inj 90 ML IV.CONT SCH ×2 (08:44→17:59)
[2018-03-15] MEDS: Gabapentin 100 MG Capsule PO SCH ×2 (08:44→20:12)
[2018-03-15] MEDS: Potassium Chloride 25 MEQ Effervescent Tablet PO SCH ×3 (08:44→20:12)
[2018-03-15] MEDS: Chlorhexidine 0.12% Oral Kit 15 ML UDC OROPHARYNG SCH ×2 (08:45→20:12)
[2018-03-15] MEDS: Nystatin 100,000 UNITS/GM Powder 15 GM Bottle TOPICAL SCH ×2 (08:45→20:12)
--- NOTE | 2018-03-15 13:45 | P.PNCA ---
Subjective Interval history: Patient denies any CP, pressure, palpitations or dizziness. Patient complains of SOB that is improving and edema that is improving. Medications and Allergies Allergies Allergy/AdvReac Type Severity Reaction Status Date / Time daptomycin Allergy Severe Unverified 11/02/16 23:29 Sulfa (Sulfonamide Allergy Mild RASH Unverified 11/02/16 23:29 Antibiotics) Home Medications Medication Instructions Recorded Confirmed Type Lactobacillus acidophilus 1 tab PO BID 02/26/18 02/26/18 History [Acidophilus] alfuzosin 10 mg PO DAILY 02/26/18 02/26/18 History amino acids-protein hydrolys 30 ml PO DAILY 02/26/18 02/26/18 History [Pro-Stat Sugar Free] amiodarone 200 mg PO DAILY 02/26/18 02/26/18 History amlodipine 5 mg PO DAILY 02/26/18 02/26/18 History ascorbic acid (vitamin C) [Vitamin 500 mg PO BID 02/26/18 02/26/18 History C] atorvastatin 20 mg PO HS 02/26/18 02/26/18 History bisacodyl [Dulcolax (bisacodyl)] 10 mg AK DAILY PRN 02/26/18 02/26/18 History duloxetine [Cymbalta] 20 mg PO DAILY 02/26/18 02/26/18 History furosemide [Lasix] 20 mg PO BID 02/26/18 02/26/18 History gabapentin 600 mg PO TID 02/26/18 02/26/18 History insulin lispro [Humalog U-100 2 - 10 unit SUBCUT ACHS 02/26/18 02/26/18 History Insulin] levothyroxine 50 mcg PO DAILY 02/26/18 02/26/18 History magnesium hydroxide [Milk of 30 ml PO DIRECTED PRN 02/26/18 02/26/18 History Magnesia] memantine [Namenda] 5 mg PO QPM 02/26/18 02/26/18 History metoprolol tartrate 25 mg PO BID 02/26/18 02/26/18 History morphine [MS Contin] 15 mg PO Q12H 02/26/18 02/26/18 History multivitamin [Tab-A-Lucille] 1 tab PO DAILY 02/26/18 02/26/18 History olmesartan 20 mg PO DAILY 02/26/18 02/26/18 History ondansetron HCl [Zofran] 4 mg PO Q8H PRN 02/26/18 02/26/18 History ondansetron [Zofran ODT] 4 mg PO Q6H PRN 02/26/18 02/26/18 History rivaroxaban [Xarelto] 20 mg PO QPM 02/26/18 02/26/18 History sennosides-docusate sodium 2 tab PO BID PRN 02/26/18 02/26/18 History sodium phosphates [Fleet Enema] 118 ml AK DIRECTED PRN 02/26/18 02/26/18 History zinc sulfate 220 mg PO DAILY 02/26/18 02/26/18 History Active Medications: Active Medications Acetaminophen (Tylenol) 650 mg PO Q6H PRN PRN Reason: FEVER Last Admin: 03/04/18 17:51 Dose: 650 mg Acetaminophen (Tylenol) 650 mg PO UNSCH PRN PRN Reason: SEE LABEL COMMENTS Hydrocodone Bitart/Acetaminophen ([place] 5/325) 1 tab PO Q4H PRN PRN Reason: Pain 1 through 5 Last Admin: 03/09/18 08:52 Dose: 1 tab Al Hydroxide/Mg Hydroxide (Milk Of Freda Foxq) 30 ml PO Q12H PRN PRN Reason: Mild Constipation Albuterol (Albuterol Neb (Prn)) 2.5 mg NEB Q2HR NEB PRN PRN Reason: SHORTNESS OF BREATH/WHEEZING Amiodarone HCl (Cordarone) 200 mg PO DAILY [facility] Last Admin: 03/15/18 08:44 Dose: 200 mg Artificial Tears (Tears Naturale Opth Drops) 1 drop EACH EYE Q8H [facility] Last Admin: 03/15/18 07:29 Dose: 1 drop Ascorbic Acid (Vitamin C) 500 mg PO BID [facility] Last Admin: 03/15/18 08:44 Dose: 500 mg Atorvastatin Calcium (Lipitor) 20 mg PO HS [facility] Last Admin: 03/14/18 20:29 Dose: 20 mg Bisacodyl (Dulcolax Supp) 10 mg RECTAL DAILY PRN PRN Reason: SEVERE CONSITIPATION Chlorhexidine Gluconate (Peridex 0.12% Oral Kit) 15 ml OROPHARYNG BID@0800, 2000 [facility] Last Admin: 03/15/18 08:45 Dose: Not Given Clonidine HCl (Catapres) 0.1 mg PO UNSCH PRN PRN Reason: SEE LABEL COMMENTS Diphenhydramine HCl (Benadryl) 25 mg PO UNSCH PRN PRN Reason: SEE LABEL COMMENTS Last Admin: 03/04/18 21:52 Dose: 25 mg Duloxetine HCl (Cymbalta) 30 mg PO DAILY [facility] Last Admin: 03/15/18 08:45 Dose: 30 mg Gabapentin (Neurontin) 200 mg PO BID [facility] Last Admin: 03/15/18 08:44 Dose: 200 mg Gelatin (Gelfoam 12 Mm/7 Mm Topical) 1 foam TOPICAL PRN PRN PRN Reason: help stop bleeding from site Last Admin: 03/05/18 05:08 Dose: 1 foam Gentamicin Sulfate (Gentamicin Inj) 20 mg OTHER WITH DIALYSIS PRN PRN Reason: Dwell Gentamycin Lock Last Admin: 03/03/18 09:16 Dose: 20 mg Heparin Sodium (Porcine) (Heparin Inj) 1,000 units OTHER WITH DIALYSIS PRN PRN Reason: Dwell Heparin to Fill Catheter Last Admin: 03/03/18 09:15 Dose: 1,000 units Heparin Sodium (Porcine) (Heparin Inj) 8,000 units OTHER WITH DIALYSIS PRN PRN Reason: for machine prime Hydralazine HCl (Apresoline Inj) 10 mg IV.PUSH Q1H PRN PRN Reason: SYS BP GREATER THAN 170 MMHG Last Admin: 03/14/18 15:40 Dose: 10 mg Propofol (Diprivan 1000 Mg/100 Ml Inj) 1,000 mg in 100 mls @ 5.171 mls/hr IV.CONT TITRATE PRN; Protocol PRN Reason: Per Protocol Albumin Human (Flexbumin 25% Inj) 100 mls @ 60 mls/hr IV.SIG WITH DIALYSIS PRN PRN Reason: hypotension / volume replace Last Infusion: 03/04/18 07:00 Dose: Infused Sodium Chloride (Ns Inj) 1,000 mls @ 0 mls/hr OTHER .Q0M PRN PRN Reason: for prime and rinse back Sodium Chloride (Ns Inj) 1,000 mls @ 200 mls/hr OTHER .Q5H PRN PRN Reason: for dialyzer flush PRN Sodium Chloride (Ns Inj) 1,000 mls @ 0 mls/hr IV.CONT .Q0M PRN PRN Reason: hypotension / volume replace Furosemide 100 mg/ Sodium (Chloride) 100 mls @ 10 mls/hr IV.CONT .Q10H [facility] Last Admin: 03/15/18 08:44 Dose: 10 mls/hr Lactulose (Lactulose Liq) 30 ml PO DAILY PRN PRN Reason: SEVERE CONSITIPATION Levothyroxine Sodium (Synthroid) 50 mcg PO DAILY@0600 [facility] Last Admin: 03/15/18 05:28 Dose: 50 mcg Mannitol (Mannitol Inj) 12.5 gm IV.PUSH UNSCH PRN PRN Reason: hypotension / volume replace Memantine (Namenda) 10 mg PO QPM [facility] Last Admin: 03/14/18 18:14 Dose: 10 mg Miscellaneous Medication () 1 each OROPHARYNG 0000,0400,1200,1600 [facility] Last Admin: 03/15/18 11:38 Dose: Not Given Morphine Sulfate (Morphine Inj) 2 mg IV.PUSH Q3H PRN PRN Reason: Pain 6 through 10 Last Admin: 03/08/18 17:23 Dose: 2 mg Multivitamins (Theragran) 1 tab PO DAILY [facility] Last Admin: 03/15/18 08:44 Dose: 1 tab Nitroglycerin (Nitro-Bid 2% Oint) 2 inch TOPICAL Q6HR PRN PRN Reason: SYS BP GREATER THAN 170 MMHG Nitroglycerin (Nitrostat Sl) 0.4 mg SL Q5M PRN PRN Reason: CHEST PAIN Nystatin (Mycostatin Powder) 1 applicatio TOPICAL BID [facility] Last Admin: 03/15/18 08:45 Dose: 1 applicatio Ondansetron HCl (Zofran Inj) 4 mg IV.PUSH Q6H PRN PRN Reason: NAUSEA OR VOMITING Ondansetron HCl (Zofran Inj) 4 mg IV.PUSH UNSCH PRN PRN Reason: NAUSEA OR VOMITING Pantoprazole Sodium (Protonix) 40 mg PO DAILY [facility] Last Admin: 03/15/18 08:44 Dose: 40 mg Pharmacy Profile Note (Coumadin Consult Pharmacy) 1 each OTHER UNSCH PRN PRN Reason: PHARMACY DOCUMENTATION Potassium Bicarb/Potassium Chloride (K-Lyte Cl Eff) 25 meq PO BID [facility] Last Admin: 03/15/18 08:44 Dose: 25 meq Quetiapine Fumarate (Seroquel) 25 mg PO HS [facility] Last Admin: 03/14/18 20:30 Dose: 25 mg Senna/Docusate Sodium (Kim-Colace) 1 tab PO BID [facility] Last Admin: 03/15/18 08:44 Dose: 1 tab Sennosides (Senokot) 17.2 mg PO Q12H PRN PRN Reason: Moderate Constipation Sodium Chloride (Ns Flush) 2 ml IV.FLUSH BID [facility] Last Admin: 03/15/18 08:45 Dose: 2 ml Sodium Chloride (Ns Flush) 2 ml IV.FLUSH PRN PRN PRN Reason: FLUSH AFTER USING IV ACCESS Sodium Chloride (Ns Flush) 0 ml IV.FLUSH DAILY [facility] Last Admin: 03/15/18 08:45 Dose: Not Given Sodium Chloride (Ns Flush) 0 ml IV.FLUSH PRN PRN PRN Reason: FLUSH AFTER USING IV ACCESS Sodium Chloride (Ns Flush) 5 ml IV.FLUSH PRN PRN PRN Reason: flush each lumen during HD Tamsulosin HCl (Flomax) 0.4 mg PO DAILY [facility] Last Admin: 03/15/18 08:45 Dose: 0.4 mg Warfarin Sodium (Coumadin) 5 mg PO DAILY@1600 [facility] Last Admin: 03/14/18 15:07 Dose: 5 mg Zinc Sulfate (Zinc-220) 220 mg PO DAILY [facility] Last Admin: 03/15/18 08:44 Dose: 220 mg Physical Exam Vital signs: Vital Signs 03/14/18 14:00 03/14/18 14:01 03/14/18 15:00 Temperature Pulse Rate 91 H 90 90 Respiratory Rate 28 H 38 H 24 Blood Pressure 162/63 H 179/97 H Pulse Oximetry 95 95 96 03/14/18 16:00 03/14/18 16:18 03/14/18 17:00 Temperature 98.4 F Pulse Rate 91 H 93 H 96 H Respiratory Rate 25 H 35 H 26 H Blood Pressure 142/65 H 162/88 H Pulse Oximetry 95 96 96 03/14/18 18:00 03/14/18 18:01 03/14/18 18:34 Temperature Pulse Rate 91 H 92 H Respiratory Rate 23 25 H Blood Pressure 162/69 H Pulse Oximetry 96 96 96 03/14/18 19:00 03/14/18 19:01 03/14/18 20:00 Temperature Pulse Rate 94 H 93 H 90 Respiratory Rate 15 11 L 12 Blood Pressure 168/68 H Pulse Oximetry 97 96 97 03/14/18 20:01 03/14/18 20:38 03/14/18 21:00 Temperature 97.7 F Pulse Rate 90 91 H Respiratory Rate 7 L 16 Blood Pressure 161/65 H Pulse Oximetry 97 96 96 03/14/18 21:02 03/14/18 22:00 03/14/18 22:07 Temperature Pulse Rate 90 86 82 Respiratory Rate 18 14 16 Blood Pressure 140/81 170/131 H Pulse Oximetry 93 L 98 98 03/14/18 22:26 03/14/18 23:00 03/14/18 23:14 Temperature Pulse Rate 84 86 87 Respiratory Rate 15 13 2 L Blood Pressure 166/71 H 135/59 L Pulse Oximetry 98 97 97 03/14/18 23:35 03/15/18 00:00 03/15/18 00:03 Temperature 97.7 F Pulse Rate 86 85 Respiratory Rate 16 16 Blood Pressure 153/63 H Pulse Oximetry 98 97 98 03/15/18 01:00 03/15/18 02:00 03/15/18 03:00 Temperature Pulse Rate 83 84 85 Respiratory Rate 14 16 10 L Blood Pressure 128/86 138/62 151/68 H Pulse Oximetry 97 97 97 03/15/18 04:00 03/15/18 04:01 03/15/18 05:00 Temperature 98.1 F Pulse Rate 87 87 Respiratory Rate 14 14 Blood Pressure 164/87 H Pulse Oximetry 98 98 98 03/15/18 05:01 03/15/18 05:09 03/15/18 06:00 Temperature Pulse Rate 87 79 85 Respiratory Rate 14 14 21 Blood Pressure 188/70 H 164/68 H Pulse Oximetry 98 98 98 03/15/18 06:01 03/15/18 06:06 03/15/18 07:00 Temperature Pulse Rate 88 86 88 Respiratory Rate 18 16 20 Blood Pressure 201/74 H 171/70 H Pulse Oximetry 98 98 99 03/15/18 07:01 03/15/18 07:13 03/15/18 08:00 Temperature Pulse Rate 88 89 Respiratory Rate 20 23 Blood Pressure 153/58 H Pulse Oximetry 99 98 97 03/15/18 08:01 03/15/18 09:00 03/15/18 09:01 Temperature 98.3 F Pulse Rate 90 90 90 Respiratory Rate 23 14 16 Blood Pressure 176/62 H 198/73 H Pulse Oximetry 97 96 96 03/15/18 10:00 03/15/18 10:01 03/15/18 11:00 Temperature Pulse Rate 91 H 92 H 94 H Respiratory Rate 7 L 9 L 19 Blood Pressure 168/69 H Pulse Oximetry 96 96 96 03/15/18 11:01 03/15/18 12:00 03/15/18 12:01 Temperature 98 F Pulse Rate 94 H 92 H 90 Respiratory Rate 31 H 12 14 Blood Pressure 185/70 H 176/67 H Pulse Oximetry 97 97 96 Intake & Output 03/14/18 03/15/18 03/15/18 18:59 06:59 18:59 Intake Total 1300 / 1300 340 / 340 100 / 100 Output Total 2675 / 2675 1874 / 187 Balance -1375 / -1375 -1535 / -1535 100 / 100 Weight 149.4 kg Intake: IV 100 / 100 100 / 100 100 / 100 Lasix Inj 100 MG In NS Inj 90 100 / 100 100 / 100 100 / 100 ML @ 10 mls/hr IV.CONT .Q10H [facility] Rx#:[id number] Oral 1200 / 1200 240 / 240 Output: Urine Amount (Catheter) 2675 / 2675 1874 / 1874 Indwelling Urethral Catheter 5 / 2675 1874 Other: Date of Last Bowel Movement 03/14/18 03/14/18 03/15/18 # Bowel Movements 0 - Constitutional no acute distress - Routine HEENT Exam Head: Present: normocephalic Eye: Present: PERRL ENT: Present: mucous membranes moist - Routine Neck Exam Present: supple - Routine Respiratory Exam Present: crackles Comments: bilateral lower lobes. - Routine Cardiovascular Exam Present: S1, S2, irregular rhythm - Routine Abdominal Exam Present: normoactive bowel sounds - Routine Extremities Exam Present: edema, full ROM, pulses intact, normal capillary refill. Absent: cyanosis, clubbing - Routine Skin Exam Present: intact - Routine Neurological Exam Present: alert - Detailed Neurological Exam: Coma Scale Eye Opening: Spontaneous Verbal Response: Confused Motor Response: Obey commands [place]ela Coma Scale Total: 14 - Routine Psychiatric Exam Present: normal affect - Urinary Catheter Management Indwelling Urethral Catheter Cath placed during this visit: yes, but has since been removed by the nurse Reason for continuing: Chronic Urinary Retention Insertion date: 02/26/18 Insertion time: 16:00 Removal date: 02/26/18 Removal time: 15:30 Results 03/15/18 04:15 03/15/18 04:15 Cardiac Enzymes 03/14/18 03/15/18 Range/Units 03:15 04:15 AST 11 L 13 L (15-37) U/L Coagulation 03/14/18 03/14/18 03/15/18 Range/Units 03:15 08:04 04:15 PT 12.3 H 15.2 H (9.8-11.6) sec APTT 33.4 H (23.4-31.7) sec CBC 03/14/18 03/15/18 Range/Units 03:15 04:15 WBC 10.4 8.8 (4.0-11.0) th/mm3 RBC 3.01 L 3.02 L (4.50-5.90) mil/mm3 Hgb 8.6 L 8.9 L (13.0-17.0) gm/dL Hct 26.1 L 26.1 L (39.0-51.0) % Plt Count 198 187 (150-450) th/mm3 Comprehensive Metabolic Panel 03/14/18 03/15/18 Range/Units 03:15 04:15 Sodium 137 138 (136-145) meq/L Potassium 4.0 4.2 (3.5-5.1) meq/L Chloride 97 L 97 L (98-107) meq/L Carbon Dioxide 31.8 33.4 H (21.0-32.0) meq/L BUN 20 H 23 H (7-18) mg/dL Creatinine 3.00 H 2.96 H (0.60-1.30) mg/dL Calcium 8.3 L 8.8 (8.5-10.1) mg/dL AST 11 L 13 L (15-37) U/L ALT 13 12 (12-78) U/L Alkaline Phosphatase 125 H 120 H (45-117) U/L Total Protein 6.8 6.7 (6.4-8.2) g/dL Albumin 2.3 L 2.4 L (3.4-5.0) g/dL Intake and Output 03/14/18 03/15/18 03/15/18 22:59 06:59 14:59 Intake Total 1300 / 1300 240 / 240 100 / 100 Output Total 2674 Balance -1375 / -1375 -1635 / -1635 100 / 100 Intake: IV 100 / 100 100 / 100 Lasix Inj 100 MG In NS Inj 90 100 / 100 100 / 100 ML @ 10 mls/hr IV.CONT .Q10H [facility] Rx#:[id number] Oral 1200 / 1200 240 / 240 Output: Urine Amount (Catheter) 2674 Indwelling Urethral Catheter 2674 Other: Date of Last Bowel Movement 03/14/18 03/14/18 03/15/18 # Bowel Movements 0 Weight 149.4 kg Assessment and Plan - Assessment (1) CHF (congestive heart failure) Code(s): I50.9 - Heart failure, unspecified Status: Acute (2) Atrial flutter Code(s): I48.92 - Unspecified atrial flutter Status: Acute (3) Obstructive sleep apnea Code(s): G47.33 - Obstructive sleep apnea (adult) (pediatric) Status: Chronic (4) BMI 50.0-59.9, adult Code(s): Z68.43 - Body mass index (BMI) 50-59.9, adult Status: Chronic (5) Coronary artery disease Code(s): I25.10 - Atherosclerotic heart disease of [place] coronary artery without angina pectoris Status: Chronic (6) Diabetes mellitus Code(s): E11.9 - Type 2 diabetes mellitus without complications Status: Chronic (7) History of essential hypertension Code(s): Z86.79 - Personal history of other diseases of the circulatory system Status: Chronic (8) Hyperlipidemia Code(s): E78.5 - Hyperlipidemia, unspecified Status: Chronic (9) Chronic kidney disease Code(s): N18.9 - Chronic kidney disease, unspecified Status: Acute (10) Depression Code(s): F32.9 - Major depressive disorder, single episode, unspecified Status : Chronic - Plan Patient continues to remain hypertensive, we will restart his Metoprolol 25mg PO BID for better BP control and adjust as needed. Patient is more alert today, following commands and responding appropriately, neurology evaluation in progress. Patient was started on Coumadin for anticoagulation Patient is in chronic atrial flutter with controlled VR. We will continue to monitor the patient during his hospitalization. He will follow up with Dr. Booth, his primary novelty dipper, when discharged from hospital. The patient was seen and evaluated by Dr. Hall who participated in care, management and decision making. - Attending Attestation Patient seen and examined. I reviewed and agree with the evaluation and plan as presented. Continue ICU care. Anticoagulation with warfarin. BP and rate control. Increase activity, PT. Procedures - Arterial Line Size (Gauge): 20 (5) Coronary artery disease Qualifiers: Coronary Disease-Associated Artery/Lesion type: unspecified vessel or lesion type [place] vs. 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
[2018-03-15] MEDS: Metoprolol Tartrate 25 MG Tablet PO SCH ×2 (15:18→20:12)
--- NOTE | 2018-03-15 15:33 | P.DIET ---
Nutritional Evaluation Type of nutrition evaluation: follow-up (TF FU) Nutrition consult regarding: Tube Feeding Screening comments: 03/01 TF review Objective - Diagnosis multi organ failure, hyperkalemia, AMS - Objective % IBW: 201 (IBW = 178lb) Body Weight Used for Calculations: IBW Energy Needs - Lower Range (kCal/kg): 25 Energy Needs - Upper Range (kCal/kg): 30 Lower Limit kCal/kg (kCals): 2,023 Upper Limit kCal/kg (kCals): 2,427 Lower Limit Protein Factor (Grams per Kg): 1.2 Upper Limit Protein Factor (Grams per Kg): 1.5 Lower Protein Needs (Protein): 97 Upper Protein Needs (Protein): 121 Dietitian Reviewed in Medical Record: Current diet, Curent medications, Intake & Output, Labs, Medical history Diet Order: TF'ing Objective Comments: PMH: acute renal failure, clostridium, 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 Pt reported a poor appetite and said he was not able to finish much of breakfast this am. Per chart, pt is consuming around 25-50% for most meals. ST notes reviewed, pt is able to tolerate mechanical soft w/ chopped meat, thin liquids. Pt currently receiving Glucerna shake BID and Nepro BID, RD to recommend d/cing Glucerna shake. Will continue to monitor wounds, PO intake, urine output, labs. Dietitian following. Recommendations: 1. Nepro supplement BID 2. Encourage PO intake 3. Will continue to monitor Dietitian to Monitor: Lab values, Renal labs, Intake & Output, Tube feeding tolerance, Wound/skin status, Medical course
--- NOTE | 2018-03-15 15:50 | P.PNIM ---
Subjective Interval history: Patient sitting upright in bed. No specific complaints from patient this afternoon. Physical Exam Vital signs: Vital Signs 03/14/18 16:00 03/14/18 16:18 03/14/18 17:00 Temperature 98.4 F Pulse Rate 91 H 93 H 96 H Respiratory Rate 25 H 35 H 26 H Blood Pressure 142/65 H 162/88 H Pulse Oximetry 95 96 96 03/14/18 18:00 03/14/18 18:01 03/14/18 18:34 Temperature Pulse Rate 91 H 92 H Respiratory Rate 23 25 H Blood Pressure 162/69 H Pulse Oximetry 96 96 96 03/14/18 19:00 03/14/18 19:01 03/14/18 20:00 Temperature Pulse Rate 94 H 93 H 90 Respiratory Rate 15 11 L 12 Blood Pressure 168/68 H Pulse Oximetry 97 96 97 03/14/18 20:01 03/14/18 20:38 03/14/18 21:00 Temperature 97.7 F Pulse Rate 90 91 H Respiratory Rate 7 L 16 Blood Pressure 161/65 H Pulse Oximetry 97 96 96 03/14/18 21:02 03/14/18 22:00 03/14/18 22:07 Temperature Pulse Rate 90 86 82 Respiratory Rate 18 14 16 Blood Pressure 140/81 170/131 H Pulse Oximetry 93 L 98 98 03/14/18 22:26 03/14/18 23:00 03/14/18 23:14 Temperature Pulse Rate 84 86 87 Respiratory Rate 15 13 2 L Blood Pressure 166/71 H 135/59 L Pulse Oximetry 98 97 97 03/14/18 23:35 03/15/18 00:00 03/15/18 00:03 Temperature 97.7 F Pulse Rate 86 85 Respiratory Rate 16 16 Blood Pressure 153/63 H Pulse Oximetry 98 97 98 03/15/18 01:00 03/15/18 02:00 03/15/18 03:00 Temperature Pulse Rate 83 84 85 Respiratory Rate 14 16 10 L Blood Pressure 128/86 138/62 151/68 H Pulse Oximetry 97 97 97 03/15/18 04:00 03/15/18 04:01 03/15/18 05:00 Temperature 98.1 F Pulse Rate 87 87 Respiratory Rate 14 14 Blood Pressure 164/87 H Pulse Oximetry 98 98 98 03/15/18 05:01 03/15/18 05:09 03/15/18 06:00 Temperature Pulse Rate 87 79 85 Respiratory Rate 14 14 21 Blood Pressure 188/70 H 164/68 H Pulse Oximetry 98 98 98 03/15/18 06:01 03/15/18 06:06 03/15/18 07:00 Temperature Pulse Rate 88 86 88 Respiratory Rate 18 16 20 Blood Pressure 201/74 H 171/70 H Pulse Oximetry 98 98 99 03/15/18 07:01 03/15/18 07:13 03/15/18 08:00 Temperature Pulse Rate 88 89 Respiratory Rate 20 23 Blood Pressure 153/58 H Pulse Oximetry 99 98 97 03/15/18 08:01 03/15/18 09:00 03/15/18 09:01 Temperature 98.3 F Pulse Rate 90 90 90 Respiratory Rate 23 14 16 Blood Pressure 176/62 H 198/73 H Pulse Oximetry 97 96 96 03/15/18 10:00 03/15/18 10:01 03/15/18 11:00 Temperature Pulse Rate 91 H 92 H 94 H Respiratory Rate 7 L 9 L 19 Blood Pressure 168/69 H Pulse Oximetry 96 96 96 03/15/18 11:01 03/15/18 12:00 03/15/18 12:01 Temperature 98 F Pulse Rate 94 H 92 H 90 Respiratory Rate 31 H 12 14 Blood Pressure 185/70 H 176/67 H Pulse Oximetry 97 97 96 03/15/18 14:00 Temperature Pulse Rate 89 Respiratory Rate Blood Pressure Pulse Oximetry Intake & Output 03/14/18 03/15/18 03/15/18 18:59 06:59 18:59 Intake Total 1300 / 1300 340 / 340 100 / 100 Output Total 5 / 2675 1874 Balance -1375 / -1375 -1535 / -1535 100 / 100 Weight 149.4 kg Intake: IV 100 / 100 100 / 100 100 / 100 Lasix Inj 100 MG In NS Inj 90 100 / 100 100 / 100 100 / 100 ML @ 10 mls/hr IV.CONT .Q10H [facility] Rx#:[id number] Oral 1200 / 1200 240 / 240 Output: Urine Amount (Catheter) 2675 / 2675 1874 Indwelling Urethral Catheter 2675 / 2675 1874 Other: Date of Last Bowel Movement 03/14/18 03/14/18 03/15/18 # Bowel Movements 0 Narrative: General patient currently on BiPAP HEENT extraocular movements are intact, clear oropharyngeal mucosa, no JVD Cardiovascular S1-S2 audible, RRR, no murmurs rubs or gallops Respiratory bibasilar crackles Abdomen soft, obese, nontender, nondistended, normal bowel sounds Extremities 1+ pitting edema bilateral lower extremities up to the shins. Neuro patient can move all 4 extremities however appears to be weak in all of his extremities lower worse than upper, sensation is intact bilaterally. - Urinary Catheter Management Indwelling Urethral Catheter Cath placed during this visit: yes, but has since been removed by the nurse Reason for continuing: Chronic Urinary Retention Insertion date: 02/26/18 Insertion time: 16:00 Removal date: 02/26/18 Removal time: 15:30 Results - Labs CBC & Chem 7: 03/15/18 04:15 03/15/18 04:15 Laboratory Results - last 24 hr 03/15/18 03/15/18 03/15/18 04:15 04:15 04:15 WBC 8.8 RBC 3.02 L Hgb 8.9 L Hct 26.1 L MCV 86.3 MCH 29.6 MCHC 34.3 RDW 15.3 Plt Count 187 MPV 8.5 PT 15.2 H INR 1.5 Sodium 138 Potassium 4.2 Chloride 97 L Carbon Dioxide 33.4 H Anion Gap 8 BUN 23 H Creatinine 2.96 H Estimated GFR 21 L Random Glucose 112 H Calcium 8.8 Phosphorus 4.0 Magnesium 1.9 Total Bilirubin 0.3 AST 13 L ALT 12 Alkaline Phosphatase 120 H Total Protein 6.7 Albumin 2.4 L Assessment and Plan - Assessment (1) Acute renal failure Code(s): N17.9 - Acute kidney failure, unspecified Status: Acute (2) Chronic kidney disease Code(s): N18.9 - Chronic kidney disease, unspecified Status: Acute (3) Shock Code(s): R57.9 - Shock, unspecified Status: Acute (4) BMI 50.0-59.9, adult Code(s): Z68.43 - Body mass index (BMI) 50-59.9, adult Status: Chronic (5) Diabetes mellitus Code(s): E11.9 - Type 2 diabetes mellitus without complications Status: Chronic - Plan This patient is a 72-year-old male with a diagnosis of morbid obesity , depression, dementia, coronary artery disease, hypertension, dyslipidemia, diabetes, atrial fibrillation, hypothyroidism, peripheral neuropathy, chronic kidney disease stage IV, patient has a history of chronic opiate use. The patient was initially sent from [facility] where he was found to have altered mental status, low blood pressure and a heart rate in the 30s and was given atropine. Patient also had a low systolic blood pressure and needed IV pressors. Patient was also in acute kidney injury with elevated potassium which was not improving with treatment and needed hemodialysis. Neuro/psych Acute metabolic encephalopathy History of TIA Depression Peripheral neuropathy secondary to diabetes Dementia Patient is awake and appears to be oriented to person and place. Continue memantine 5 mg daily for dementia. Continue gabapentin. Psych: The patient for depression, Cymbalta dose was increased. Namenda dose increased. Seroquel added to the patient's medication regimen. Patient's encephalopathy has improved. Patient has history of TIA, continue statin, patient currently on heparin drip which will likely be changed to a anticoagulant given his atrial fibrillation/ flutter. Cardiovascular Sinus bradycardia resolved Atrial flutter/atrial fibrillation Dyslipidemia Coronary artery disease Congestive heart failure with preserved ejection fraction Heart rate under control. Continue amiodarone. BB started by Cardiology today. Continue coumadin, INR 1.5 today. On coumadin 5mg daily. Pharmacy following and adjusting. PT/INR ordered for tomorrow a.m., will closely monitor as patient is also on amiodarone. Continue statin Currently on Lasix drip, albumin, nephrology also following. Strict ins and outs. Respiratory Obstructive sleep apnea Right-sided pleural effusion status post thoracentesis Patient requiring BiPAP throughout the day on and off. Continue BiPAP at night. Patient is status post right-sided thoracentesis. Pulmonary following the patient, will continue to follow with the recommendations. I will DC antibiotics. Patient has been on IV antibiotics since 02/26/2018. Endocrine Diabetes Hypothyroidism Continue levothyroxine. Blood sugars have been running between 110-190s. Case and plan discussed with the nurse. No sliding scale for now, blood sugars acceptable. Renal Acute kidney injury on chronic kidney disease stage IIIb Serum creatinine is 2.9 as of today. He is currently on a Lasix drip and albumin. Nephrology following the patient, will continue to follow with the recognitions. DVT prophylaxis, patient is on coumadin. Patient is requiring BiPAP throughout the day, will continue to monitor the patient closely here in the intensive care unit. Procedures - Arterial Line Size (Gauge): 20 (5) Diabetes mellitus Qualifiers: Diabetes mellitus type: type 2 Diabetes mellitus [employer] or [employer] principal insulin use: with long-term use Diabetes mellitus complication status: with kidney complications Diabetes mellitus complication detail: with other kidney complication Qualified Code(s): E11.29 - Type 2 diabetes mellitus with other diabetic kidney complication; Z79.4 - care home (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
--- NOTE | 2018-03-15 19:31 | P.PNPL ---
Subjective Interval history: 72 YOWM with RF, renal insuff Used NC, now on CPAP No CP No fever Physical Exam Vital signs: Vital Signs 03/14/18 20:00 03/14/18 20:01 03/14/18 20:38 Temperature 97.7 F Pulse Rate 90 90 Respiratory Rate 12 7 L Blood Pressure 161/65 H Pulse Oximetry 97 97 96 03/14/18 21:00 03/14/18 21:02 03/14/18 22:00 Temperature Pulse Rate 91 H 90 86 Respiratory Rate 16 18 14 Blood Pressure 140/81 Pulse Oximetry 96 93 L 98 03/14/18 22:07 03/14/18 22:26 03/14/18 23:00 Temperature Pulse Rate 82 84 86 Respiratory Rate 16 15 13 Blood Pressure 170/131 H 166/71 H Pulse Oximetry 98 98 97 03/14/18 23:14 03/14/18 23:35 03/15/18 00:00 Temperature 97.7 F Pulse Rate 87 86 Respiratory Rate 2 L 16 Blood Pressure 135/59 L Pulse Oximetry 97 98 97 03/15/18 00:03 03/15/18 01:00 03/15/18 02:00 Temperature Pulse Rate 85 83 84 Respiratory Rate 16 14 16 Blood Pressure 153/63 H 128/86 138/62 Pulse Oximetry 98 97 97 03/15/18 03:00 03/15/18 04:00 03/15/18 04:01 Temperature 98.1 F Pulse Rate 85 87 Respiratory Rate 10 L 14 Blood Pressure 151/68 H 164/87 H Pulse Oximetry 97 98 98 03/15/18 05:00 03/15/18 05:01 03/15/18 05:09 Temperature Pulse Rate 87 87 79 Respiratory Rate 14 14 14 Blood Pressure 188/70 H 164/68 H Pulse Oximetry 98 98 98 03/15/18 06:00 03/15/18 06:01 03/15/18 06:06 Temperature Pulse Rate 85 88 86 Respiratory Rate 21 18 16 Blood Pressure 201/74 H 171/70 H Pulse Oximetry 98 98 98 03/15/18 07:00 03/15/18 07:01 03/15/18 07:13 Temperature Pulse Rate 88 88 Respiratory Rate 20 20 Blood Pressure 153/58 H Pulse Oximetry 99 99 98 03/15/18 08:00 03/15/18 08:01 03/15/18 09:00 Temperature 98.3 F Pulse Rate 89 90 90 Respiratory Rate 23 23 14 Blood Pressure 176/62 H Pulse Oximetry 97 97 96 03/15/18 09:01 03/15/18 10:00 03/15/18 10:01 Temperature Pulse Rate 90 91 H 92 H Respiratory Rate 16 7 L 9 L Blood Pressure 198/73 H 168/69 H Pulse Oximetry 96 96 96 03/15/18 11:00 03/15/18 11:01 03/15/18 12:00 Temperature 98 F Pulse Rate 94 H 94 H 92 H Respiratory Rate 19 31 H 12 Blood Pressure 185/70 H Pulse Oximetry 96 97 97 03/15/18 12:01 03/15/18 13:00 03/15/18 13:29 Temperature Pulse Rate 90 89 92 H Respiratory Rate 14 28 H 21 Blood Pressure 176/67 H 183/132 H 136/88 Pulse Oximetry 96 97 98 03/15/18 14:00 03/15/18 14:01 03/15/18 15:00 Temperature Pulse Rate 89 89 88 Respiratory Rate 10 L 19 28 H Blood Pressure 138/58 L 164/62 H Pulse Oximetry 98 98 97 03/15/18 16:00 03/15/18 16:01 03/15/18 17:52 Temperature 98.6 F Pulse Rate 89 90 89 Respiratory Rate 43 H 32 H Blood Pressure 154/64 H Pulse Oximetry 98 98 03/15/18 18:07 Temperature Pulse Rate Respiratory Rate Blood Pressure Pulse Oximetry 99 Intake & Output 03/15/18 03/15/18 03/16/18 06:59 18:59 06:59 Intake Total 340 / 340 950 / 950 Output Total 1874 2450 / 2450 Balance -1535 / -1535 -1500 / -1500 Weight 149.4 kg Intake: IV 100 / 100 200 / 200 Lasix Inj 100 MG In NS Inj 90 100 / 100 200 / 200 ML @ 10 mls/hr IV.CONT .Q10H [facility] Rx#:[id number] Oral 240 / 240 750 / 750 Output: Urine Amount (Catheter) 1874 2450 / 2450 Indwelling Urethral Catheter 1874 2450 / 2450 Other: Date of Last Bowel Movement 03/14/18 03/15/18 # Bowel Movements 0 1 GENERAL: Elderly WM, NAD SKIN: Warm and dry. HEAD: Normocephalic. EYES: No scleral icterus. No injection or drainage. NECK: Supple, trachea midline. No JVD or lymphadenopathy. CARDIOVASCULAR: Regular rate and rhythm without murmurs, gallops, or rubs. RESPIRATORY: Breath sounds equal bilaterally. No accessory muscle use. GASTROINTESTINAL: Abdomen soft, non-tender, nondistended. MUSCULOSKELETAL: No cyanosis, or edema. BACK: Nontender without obvious deformity. No CVA tenderness. - Urinary Catheter Management Indwelling Urethral Catheter Cath placed during this visit: yes, but has since been removed by the nurse Reason for continuing: Chronic Urinary Retention Insertion date: 02/26/18 Insertion time: 16:00 Removal date: 02/26/18 Removal time: 15:30 Assessment and Plan - Plan IMPRESSION: Resp Failure--improved renal Failure HTN ?MIRTA PLAN: Cont CPAP Try NC in AM Aerosol nebs Lasix drip Monitor Lytes Procedures - Arterial Line Size (Gauge): 20
--- NOTE | 2018-03-15 20:09 | P.PNNP ---
Subjective Interval history: Patient seen in the afternoon, breathing is better, with nasal cannula. Physical Exam Vital signs: Vital Signs 03/14/18 20:38 03/14/18 21:00 03/14/18 21:02 Temperature Pulse Rate 91 H 90 Respiratory Rate 16 18 Blood Pressure 140/81 Pulse Oximetry 96 96 93 L 03/14/18 22:00 03/14/18 22:07 03/14/18 22:26 Temperature Pulse Rate 86 82 84 Respiratory Rate 14 16 15 Blood Pressure 170/131 H 166/71 H Pulse Oximetry 98 98 98 03/14/18 23:00 03/14/18 23:14 03/14/18 23:35 Temperature Pulse Rate 86 87 Respiratory Rate 13 2 L Blood Pressure 135/59 L Pulse Oximetry 97 97 98 03/15/18 00:00 03/15/18 00:03 03/15/18 01:00 Temperature 97.7 F Pulse Rate 86 85 83 Respiratory Rate 16 16 14 Blood Pressure 153/63 H 128/86 Pulse Oximetry 97 98 97 03/15/18 02:00 03/15/18 03:00 03/15/18 04:00 Temperature 98.1 F Pulse Rate 84 85 87 Respiratory Rate 16 10 L 14 Blood Pressure 138/62 151/68 H 164/87 H Pulse Oximetry 97 97 98 03/15/18 04:01 03/15/18 05:00 03/15/18 05:01 Temperature Pulse Rate 87 87 Respiratory Rate 14 14 Blood Pressure 188/70 H Pulse Oximetry 98 98 98 03/15/18 05:09 03/15/18 06:00 03/15/18 06:01 Temperature Pulse Rate 79 85 88 Respiratory Rate 14 21 18 Blood Pressure 164/68 H 201/74 H Pulse Oximetry 98 98 98 03/15/18 06:06 03/15/18 07:00 03/15/18 07:01 Temperature Pulse Rate 86 88 88 Respiratory Rate 16 20 20 Blood Pressure 171/70 H 153/58 H Pulse Oximetry 98 99 99 03/15/18 07:13 03/15/18 08:00 03/15/18 08:01 Temperature 98.3 F Pulse Rate 89 90 Respiratory Rate 23 23 Blood Pressure 176/62 H Pulse Oximetry 98 97 97 03/15/18 09:00 03/15/18 09:01 03/15/18 10:00 Temperature Pulse Rate 90 90 91 H Respiratory Rate 14 16 7 L Blood Pressure 198/73 H Pulse Oximetry 96 96 96 03/15/18 10:01 03/15/18 11:00 03/15/18 11:01 Temperature Pulse Rate 92 H 94 H 94 H Respiratory Rate 9 L 19 31 H Blood Pressure 168/69 H 185/70 H Pulse Oximetry 96 96 97 03/15/18 12:00 03/15/18 12:01 03/15/18 13:00 Temperature 98 F Pulse Rate 92 H 90 89 Respiratory Rate 12 14 28 H Blood Pressure 176/67 H 183/132 H Pulse Oximetry 97 96 97 03/15/18 13:29 03/15/18 14:00 03/15/18 14:01 Temperature Pulse Rate 92 H 89 89 Respiratory Rate 21 10 L 19 Blood Pressure 136/88 138/58 L Pulse Oximetry 98 98 98 03/15/18 15:00 03/15/18 16:00 03/15/18 16:01 Temperature 98.6 F Pulse Rate 88 89 90 Respiratory Rate 28 H 43 H 32 H Blood Pressure 164/62 H 154/64 H Pulse Oximetry 97 98 98 03/15/18 17:00 03/15/18 17:01 03/15/18 17:52 Temperature Pulse Rate 87 85 89 Respiratory Rate 9 L 7 L Blood Pressure 179/69 H Pulse Oximetry 98 99 03/15/18 18:00 03/15/18 18:01 03/15/18 18:07 Temperature Pulse Rate 82 83 Respiratory Rate 30 H 22 Blood Pressure 153/70 H Pulse Oximetry 99 99 99 03/15/18 19:00 03/15/18 19:22 03/15/18 20:00 Temperature 99.7 F H Pulse Rate 67 69 76 Respiratory Rate 15 14 19 Blood Pressure 141/61 H 159/66 H Pulse Oximetry 99 100 98 Intake & Output 03/15/18 03/15/18 03/16/18 06:59 18:59 06:59 Intake Total 340 / 340 950 / 950 Output Total 1875 / 1875 2450 / 2450 Balance -1535 / -1535 -1500 / -1500 Weight 149.4 kg Intake: IV 100 / 100 200 / 200 Lasix Inj 100 MG In NS Inj 90 100 / 100 200 / 200 ML @ 10 mls/hr IV.CONT .Q10H [facility] Rx#:[id number] Oral 240 / 240 750 / 750 Output: Urine Amount (Catheter) 1874 2450 / 2450 Indwelling Urethral Catheter 1874 2450 / 2450 Other: Date of Last Bowel Movement 03/14/18 03/15/18 # Bowel Movements 0 1 Narrative: General patient currently on BiPAP HEENT extraocular movements are intact, clear oropharyngeal mucosa, no JVD Cardiovascular S1-S2 audible, RRR, no murmurs rubs or gallops Respiratory bibasilar crackles Abdomen soft, obese, nontender, nondistended, normal bowel sounds Extremities 1+ pitting edema bilateral lower extremities up to the shins. Neuro patient can move all 4 extremities however appears to be weak in all of his extremities lower worse than upper, sensation is intact bilaterally. - Urinary Catheter Management Indwelling Urethral Catheter Cath placed during this visit: yes, but has since been removed by the nurse Reason for continuing: Chronic Urinary Retention Insertion date: 02/26/18 Insertion time: 16:00 Removal date: 02/26/18 Removal time: 15:30 Assessment and Plan - Assessment (1) Acute renal failure Code(s): N17.9 - Acute kidney failure, unspecified Status: Acute (2) Chronic kidney disease Code(s): N18.9 - Chronic kidney disease, unspecified Status: Acute (3) Shock Code(s): R57.9 - Shock, unspecified Status: Acute (4) BMI 50.0-59.9, adult Code(s): Z68.43 - Body mass index (BMI) 50-59.9, adult Status: Chronic (5) Diabetes mellitus Code(s): E11.9 - Type 2 diabetes mellitus without complications Status: Chronic Qualifiers: Diabetes mellitus type: type 2 Diabetes mellitus detention insulin use: with detention use Diabetes mellitus complication status: with kidney complications Diabetes mellitus complication detail: with other kidney complication Qualified Code(s): E11.29 - Type 2 diabetes mellitus with other diabetic kidney complication; Z79.4 - terminal clerk (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 - Plan Patient with chronic kidney disease and develop PIERRE. Creatinine remain stable at 2.9 now, K is normal. On lasix 10mg/hour + albumin Urine out put is good. Continue diuresis with Lasix/albumin, follow labs. Edema improving No need for dialysis at this point, continue supportive care. Continue Lasix infusion and try to keep in negative fluid balance. Procedures - Arterial Line Size (Gauge): 20
[2018-03-15] MEDS: QUEtiapine 25 MG Tablet PO SCH (20:12)
[2018-03-16] MEDS: Oral Hygiene Kit OROPHARYNG SCH ×3 (03:00→15:06)
[2018-03-16 05:16] LABS: Hematocrit 25.2 % (39.0-51.0); Hemoglobin 8.6 gm/dL (13.0-17.0); Mean Corpuscular Hemoglobin 29.5 pg (27.0-34.0); Mean Corpuscular Volume 86.6 fL (80.0-100.0); Mean Platelet Volume 8.4 fL (7.0-11.0); Platelet Count 182 th/mm3 (150-450); Red Blood Count 2.91 mil/mm3 (4.50-5.90); Red Cell Distribution Width 15.4 % (11.6-17.2); White Blood Count 9.8 th/mm3 (4.0-11.0)
[2018-03-16 05:22] LABS: INR 2.5 Ratio; Prothrombin Time 24.8 sec (9.8-11.6)
[2018-03-16 05:46] LABS: Albumin 2.3 g/dL (3.4-5.0); Anion Gap 7 meq/L (5-15); Aspartate Aminotransferase 11 U/L (15-37); Blood Urea Nitrogen 24 mg/dL (7-18); Calcium 8.2 mg/dL (8.5-10.1); Carbon Dioxide 34.1 meq/L (21.0-32.0); Chloride 96 meq/L (98-107); Glomerular Filtration Rate 19 mL/min (>89); Glucose,Random 115 mg/dL (74-106); Potassium 4.3 meq/L (3.5-5.1); Sodium 137 meq/L (136-145)
[2018-03-16 05:50] LABS: Alanine Aminotransferase 10 U/L (12-78); Alkaline Phosphatase 111 U/L (45-117); Phosphorus 3.7 mg/dL (2.5-4.9); Total Protein 6.6 g/dL (6.4-8.2)
[2018-03-16] MEDS: Artificial Tears Opth Drops 15 ML Bottle EACH EYE SCH ×2 (06:01→15:05)
[2018-03-16] MEDS: Furosemide Inj 100 MG in Sodium Chlor 0.9% Inj 90 ML IV.CONT SCH ×2 (06:01→14:24)
[2018-03-16] MEDS: Levothyroxine 50 MCG Tablet PO SCH (06:01)
[2018-03-16] MEDS: Chlorhexidine 0.12% Oral Kit 15 ML UDC OROPHARYNG SCH (07:44)
[2018-03-16] MEDS: Ascorbic Acid 500 MG Tablet PO SCH ×2 (08:24→20:38)
[2018-03-16] MEDS: Potassium Chloride 25 MEQ Effervescent Tablet PO SCH ×2 (08:24→20:36)
[2018-03-16] MEDS: Amiodarone 200 MG Tablet PO SCH (08:24)
[2018-03-16] MEDS: Gabapentin 100 MG Capsule PO SCH ×2 (08:24→20:37)
[2018-03-16] MEDS: Metoprolol Tartrate 25 MG Tablet PO SCH ×2 (08:24→20:37)
[2018-03-16] MEDS: Senna/Docusate Sodium 8.6/50 MG Tablet PO SCH ×2 (08:24→20:37)
[2018-03-16] MEDS: Nystatin 100,000 UNITS/GM Powder 15 GM Bottle TOPICAL SCH ×2 (08:25→20:37)
--- NOTE | 2018-03-16 10:19 | P.PNCA ---
Subjective Interval history: Patient denies any CP, pressure, palpitations or dizziness. Patient does complain of mild SOB and lower extremity edema. Patient states that both are improving and that he is starting to feel better. Medications and Allergies Allergies Allergy/AdvReac Type Severity Reaction Status Date / Time daptomycin Allergy Severe Unverified 11/02/16 23:29 Sulfa (Sulfonamide Allergy Mild RASH Unverified 11/02/16 23:29 Antibiotics) Home Medications Medication Instructions Recorded Confirmed Type Lactobacillus acidophilus 1 tab PO BID 02/26/18 02/26/18 History [Acidophilus] alfuzosin 10 mg PO DAILY 02/26/18 02/26/18 History amino acids-protein hydrolys 30 ml PO DAILY 02/26/18 02/26/18 History [Pro-Stat Sugar Free] amiodarone 200 mg PO DAILY 02/26/18 02/26/18 History amlodipine 5 mg PO DAILY 02/26/18 02/26/18 History ascorbic acid (vitamin C) [Vitamin 500 mg PO BID 02/26/18 02/26/18 History C] atorvastatin 20 mg PO HS 02/26/18 02/26/18 History bisacodyl [Dulcolax (bisacodyl)] 10 mg OH DAILY PRN 02/26/18 02/26/18 History duloxetine [Cymbalta] 20 mg PO DAILY 02/26/18 02/26/18 History furosemide [Lasix] 20 mg PO BID 02/26/18 02/26/18 History gabapentin 600 mg PO TID 02/26/18 02/26/18 History insulin lispro [Humalog U-100 2 - 10 unit SUBCUT ACHS 02/26/18 02/26/18 History Insulin] levothyroxine 50 mcg PO DAILY 02/26/18 02/26/18 History magnesium hydroxide [Milk of 30 ml PO DIRECTED PRN 02/26/18 02/26/18 History Magnesia] memantine [Namenda] 5 mg PO QPM 02/26/18 02/26/18 History metoprolol tartrate 25 mg PO BID 02/26/18 02/26/18 History morphine [MS Contin] 15 mg PO Q12H 02/26/18 02/26/18 History multivitamin [Tab-A-Lucille] 1 tab PO DAILY 02/26/18 02/26/18 History olmesartan 20 mg PO DAILY 02/26/18 02/26/18 History ondansetron HCl [Zofran] 4 mg PO Q8H PRN 02/26/18 02/26/18 History ondansetron [Zofran ODT] 4 mg PO Q6H PRN 02/26/18 02/26/18 History rivaroxaban [Xarelto] 20 mg PO QPM 02/26/18 02/26/18 History sennosides-docusate sodium 2 tab PO BID PRN 02/26/18 02/26/18 History sodium phosphates [Fleet Enema] 118 ml OH DIRECTED PRN 02/26/18 02/26/18 History zinc sulfate 220 mg PO DAILY 02/26/18 02/26/18 History Active Medications: Active Medications Acetaminophen (Tylenol) 650 mg PO Q6H PRN PRN Reason: FEVER Last Admin: 03/04/18 17:51 Dose: 650 mg Acetaminophen (Tylenol) 650 mg PO UNSCH PRN PRN Reason: SEE LABEL COMMENTS Hydrocodone Bitart/Acetaminophen ([place] 5/325) 1 tab PO Q4H PRN PRN Reason: Pain 1 through 5 Last Admin: 03/09/18 08:52 Dose: 1 tab Al Hydroxide/Mg Hydroxide (Milk Of Magnjuan luis Liq) 30 ml PO Q12H PRN PRN Reason: Mild Constipation Albuterol (Albuterol Neb (Prn)) 2.5 mg NEB Q2HR NEB PRN PRN Reason: SHORTNESS OF BREATH/WHEEZING Amiodarone HCl (Cordarone) 200 mg PO DAILY [facility] Last Admin: 03/16/18 08:24 Dose: 200 mg Artificial Tears (Tears Naturale Opth Drops) 1 drop EACH EYE Q8H [facility] Last Admin: 03/16/18 06:01 Dose: 1 drop Ascorbic Acid (Vitamin C) 500 mg PO BID [facility] Last Admin: 03/16/18 08:24 Dose: 500 mg Atorvastatin Calcium (Lipitor) 20 mg PO HS [facility] Last Admin: 03/15/18 20:12 Dose: 20 mg Bisacodyl (Dulcolax Supp) 10 mg RECTAL DAILY PRN PRN Reason: SEVERE CONSITIPATION Chlorhexidine Gluconate (Peridex 0.12% Oral Kit) 15 ml OROPHARYNG BID@0800, 2000 [facility] Last Admin: 03/16/18 07:44 Dose: Not Given Clonidine HCl (Catapres) 0.1 mg PO UNSCH PRN PRN Reason: SEE LABEL COMMENTS Diphenhydramine HCl (Benadryl) 25 mg PO UNSCH PRN PRN Reason: SEE LABEL COMMENTS Last Admin: 03/04/18 21:52 Dose: 25 mg Duloxetine HCl (Cymbalta) 30 mg PO DAILY [facility] Last Admin: 03/16/18 08:24 Dose: 30 mg Gabapentin (Neurontin) 200 mg PO BID [facility] Last Admin: 03/16/18 08:24 Dose: 200 mg Gelatin (Gelfoam 12 Mm/7 Mm Topical) 1 foam TOPICAL PRN PRN PRN Reason: help stop bleeding from site Last Admin: 03/05/18 05:08 Dose: 1 foam Gentamicin Sulfate (Gentamicin Inj) 20 mg OTHER WITH DIALYSIS PRN PRN Reason: Dwell Gentamycin Lock Last Admin: 03/03/18 09:16 Dose: 20 mg Heparin Sodium (Porcine) (Heparin Inj) 1,000 units OTHER WITH DIALYSIS PRN PRN Reason: Dwell Heparin to Fill Catheter Last Admin: 03/03/18 09:15 Dose: 1,000 units Heparin Sodium (Porcine) (Heparin Inj) 8,000 units OTHER WITH DIALYSIS PRN PRN Reason: for machine prime Hydralazine HCl (Apresoline Inj) 10 mg IV.PUSH Q1H PRN PRN Reason: SYS BP GREATER THAN 170 MMHG Last Admin: 03/14/18 15:40 Dose: 10 mg Propofol (Diprivan 1000 Mg/100 Ml Inj) 1,000 mg in 100 mls @ 5.171 mls/hr IV.CONT TITRATE PRN; Protocol PRN Reason: Per Protocol Albumin Human (Flexbumin 25% Inj) 100 mls @ 60 mls/hr IV.SIG WITH DIALYSIS PRN PRN Reason: hypotension / volume replace Last Infusion: 03/04/18 07:00 Dose: Infused Sodium Chloride (Ns Inj) 1,000 mls @ 0 mls/hr OTHER .Q0M PRN PRN Reason: for prime and rinse back Sodium Chloride (Ns Inj) 1,000 mls @ 200 mls/hr OTHER .Q5H PRN PRN Reason: for dialyzer flush PRN Sodium Chloride (Ns Inj) 1,000 mls @ 0 mls/hr IV.CONT .Q0M PRN PRN Reason: hypotension / volume replace Furosemide 100 mg/ Sodium (Chloride) 100 mls @ 10 mls/hr IV.CONT .Q10H [facility] Last Admin: 03/16/18 06:01 Dose: 10 mls/hr Lactulose (Lactulose Liq) 30 ml PO DAILY PRN PRN Reason: SEVERE CONSITIPATION Levothyroxine Sodium (Synthroid) 50 mcg PO DAILY@0600 [facility] Last Admin: 03/16/18 06:01 Dose: 50 mcg Mannitol (Mannitol Inj) 12.5 gm IV.PUSH UNSCH PRN PRN Reason: hypotension / volume replace Memantine (Namenda) 10 mg PO QPM [facility] Last Admin: 03/15/18 17:59 Dose: 10 mg Metoprolol Tartrate (Lopressor) 25 mg PO BID [facility] Last Admin: 03/16/18 08:24 Dose: 25 mg Miscellaneous Medication () 1 each OROPHARYNG 0000,0400,1200,1600 [facility] Last Admin: 03/16/18 03:00 Dose: 1 each Morphine Sulfate (Morphine Inj) 2 mg IV.PUSH Q3H PRN PRN Reason: Pain 6 through 10 Last Admin: 03/08/18 17:23 Dose: 2 mg Multivitamins (Theragran) 1 tab PO DAILY [facility] Last Admin: 03/16/18 08:24 Dose: 1 tab Nitroglycerin (Nitro-Bid 2% Oint) 2 inch TOPICAL Q6HR PRN PRN Reason: SYS BP GREATER THAN 170 MMHG Nitroglycerin (Nitrostat Sl) 0.4 mg SL Q5M PRN PRN Reason: CHEST PAIN Nystatin (Mycostatin Powder) 1 applicatio TOPICAL BID [facility] Last Admin: 03/16/18 08:25 Dose: 1 applicatio Ondansetron HCl (Zofran Inj) 4 mg IV.PUSH Q6H PRN PRN Reason: NAUSEA OR VOMITING Ondansetron HCl (Zofran Inj) 4 mg IV.PUSH UNSCH PRN PRN Reason: NAUSEA OR VOMITING Pantoprazole Sodium (Protonix) 40 mg PO DAILY [facility] Last Admin: 03/16/18 08:24 Dose: 40 mg Pharmacy Profile Note (Coumadin Consult Pharmacy) 1 each OTHER UNSCH PRN PRN Reason: PHARMACY DOCUMENTATION Potassium Bicarb/Potassium Chloride (K-Lyte Cl Eff) 25 meq PO BID [facility] Last Admin: 03/16/18 08:24 Dose: 25 meq Quetiapine Fumarate (Seroquel) 25 mg PO HS [facility] Last Admin: 03/15/18 20:12 Dose: 25 mg Senna/Docusate Sodium (Kim-Colace) 1 tab PO BID [facility] Last Admin: 03/16/18 08:24 Dose: Not Given Sennosides (Senokot) 17.2 mg PO Q12H PRN PRN Reason: Moderate Constipation Sodium Chloride (Ns Flush) 2 ml IV.FLUSH BID [facility] Last Admin: 03/16/18 08:24 Dose: Not Given Sodium Chloride (Ns Flush) 2 ml IV.FLUSH PRN PRN PRN Reason: FLUSH AFTER USING IV ACCESS Sodium Chloride (Ns Flush) 0 ml IV.FLUSH DAILY [facility] Last Admin: 03/16/18 08:24 Dose: Not Given Sodium Chloride (Ns Flush) 0 ml IV.FLUSH PRN PRN PRN Reason: FLUSH AFTER USING IV ACCESS Sodium Chloride (Ns Flush) 5 ml IV.FLUSH PRN PRN PRN Reason: flush each lumen during HD Tamsulosin HCl (Flomax) 0.4 mg PO DAILY [facility] Last Admin: 03/16/18 08:24 Dose: 0.4 mg Warfarin Sodium (Coumadin) 5 mg PO DAILY@1600 [facility] Last Admin: 03/15/18 15:18 Dose: 5 mg Zinc Sulfate (Zinc-220) 220 mg PO DAILY [facility] Last Admin: 03/16/18 08:24 Dose: 220 mg Physical Exam Vital signs: Vital Signs 03/15/18 11:00 03/15/18 11:01 03/15/18 12:00 Temperature 98 F Pulse Rate 94 H 94 H 92 H Respiratory Rate 19 31 H 12 Blood Pressure 185/70 H Pulse Oximetry 96 97 97 03/15/18 12:01 03/15/18 13:00 03/15/18 13:29 Temperature Pulse Rate 90 89 92 H Respiratory Rate 14 28 H 21 Blood Pressure 176/67 H 183/132 H 136/88 Pulse Oximetry 96 97 98 03/15/18 14:00 03/15/18 14:01 03/15/18 15:00 Temperature Pulse Rate 89 89 88 Respiratory Rate 10 L 19 28 H Blood Pressure 138/58 L 164/62 H Pulse Oximetry 98 98 97 03/15/18 16:00 03/15/18 16:01 03/15/18 17:00 Temperature 98.6 F Pulse Rate 89 90 87 Respiratory Rate 43 H 32 H 9 L Blood Pressure 154/64 H Pulse Oximetry 98 98 98 03/15/18 17:01 03/15/18 17:52 03/15/18 18:00 Temperature Pulse Rate 85 89 82 Respiratory Rate 7 L 30 H Blood Pressure 179/69 H Pulse Oximetry 99 99 03/15/18 18:01 03/15/18 18:07 03/15/18 19:00 Temperature Pulse Rate 83 67 Respiratory Rate 22 15 Blood Pressure 153/70 H Pulse Oximetry 99 99 99 03/15/18 19:22 03/15/18 20:00 03/15/18 21:00 Temperature 99.7 F H Pulse Rate 69 76 64 Respiratory Rate 14 19 13 Blood Pressure 141/61 H 159/66 H Pulse Oximetry 100 98 99 03/15/18 21:01 03/15/18 22:00 03/15/18 22:01 Temperature Pulse Rate 64 65 65 Respiratory Rate 9 L 5 L 11 L Blood Pressure 141/59 H 142/54 H Pulse Oximetry 100 99 100 03/15/18 23:00 03/15/18 23:01 03/15/18 23:45 Temperature Pulse Rate 63 63 Respiratory Rate 12 12 Blood Pressure 131/54 L Pulse Oximetry 99 100 98 03/16/18 00:00 03/16/18 00:01 03/16/18 01:00 Temperature 98.6 F Pulse Rate 64 63 63 Respiratory Rate 8 L 10 L 7 L Blood Pressure 133/54 L Pulse Oximetry 100 100 100 03/16/18 01:01 03/16/18 02:00 03/16/18 02:01 Temperature Pulse Rate 63 64 64 Respiratory Rate 9 L 14 16 Blood Pressure 143/57 H 135/58 L Pulse Oximetry 100 100 100 03/16/18 03:00 03/16/18 03:01 03/16/18 04:00 Temperature 99 F Pulse Rate 63 62 63 Respiratory Rate 18 14 12 Blood Pressure 147/59 H Pulse Oximetry 100 100 100 03/16/18 04:01 03/16/18 04:02 03/16/18 05:00 Temperature Pulse Rate 65 79 Respiratory Rate 13 20 Blood Pressure 144/61 H 164/60 H Pulse Oximetry 100 98 95 03/16/18 06:00 03/16/18 06:01 03/16/18 07:00 Temperature Pulse Rate 79 79 80 Respiratory Rate 18 17 12 Blood Pressure 132/58 L Pulse Oximetry 99 98 97 03/16/18 07:37 03/16/18 07:52 03/16/18 08:00 Temperature 98.7 F Pulse Rate 80 81 Respiratory Rate 12 19 Blood Pressure 120/55 L Pulse Oximetry 96 98 98 03/16/18 08:01 03/16/18 09:00 Temperature Pulse Rate 82 79 Respiratory Rate 15 7 L Blood Pressure 134/56 L 138/59 L Pulse Oximetry 98 97 Intake & Output 03/15/18 03/16/18 03/16/18 18:59 06:59 18:59 Intake Total 950 / 950 820 / 820 Output Total 2450 / 2450 500 / 500 Balance -1500 / -1500 320 / 320 Weight 149 kg Intake: IV 200 / 200 100 / 100 Lasix Inj 100 MG In NS Inj 90 200 / 200 100 / 100 ML @ 10 mls/hr IV.CONT .Q10H [facility] Rx#:[id number] Oral 750 / 750 720 / 720 Output: Urine 500 / 500 Urine Amount (Catheter) 2450 / 2450 Indwelling Urethral Catheter 2450 / 2450 Other: Date of Last Bowel Movement 03/15/18 03/15/18 03/16/18 # Bowel Movements 1 1 - Constitutional no acute distress - Routine HEENT Exam Head: Present: normocephalic Eye: Present: PERRL ENT: Present: mucous membranes moist - Routine Neck Exam Present: full ROM - Routine Respiratory Exam Present: crackles Comments: fine crackles lower lobes bilateral - Routine Cardiovascular Exam Present: S1, S2, irregular rhythm - Routine Abdominal Exam Present: normoactive bowel sounds - Routine Extremities Exam Present: edema, full ROM, pulses intact, normal capillary refill. Absent: cyanosis, clubbing Comments: edema in the lower extremities that is improving - Routine Skin Exam Present: intact - Routine Neurological Exam Present: alert, oriented X3 - Detailed Neurological Exam: Coma Scale Eye Opening: Spontaneous Verbal Response: Oriented Motor Response: Obey commands [place] Coma Scale Total: 15 - Routine Psychiatric Exam Present: normal affect - Urinary Catheter Management Indwelling Urethral Catheter Cath placed during this visit: yes, but has since been removed by the nurse Reason for continuing: Chronic Urinary Retention Insertion date: 02/26/18 Insertion time: 16:00 Removal date: 02/26/18 Removal time: 15:30 Results 03/16/18 04:30 03/16/18 04:30 Cardiac Enzymes 03/15/18 03/16/18 Range/Units 04:15 04:30 AST 13 L 11 L (15-37) U/L Coagulation 03/15/18 03/16/18 Range/Units 04:15 04:30 PT 15.2 H 24.8 H (9.8-11.6) sec CBC 03/15/18 03/16/18 Range/Units 04:15 04:30 WBC 8.8 9.8 (4.0-11.0) th/mm3 RBC 3.02 L 2.91 L (4.50-5.90) mil/mm3 Hgb 8.9 L 8.6 L (13.0-17.0) gm/dL Hct 26.1 L 25.2 L (39.0-51.0) % Plt Count 187 182 (150-450) th/mm3 Comprehensive Metabolic Panel 03/15/18 03/16/18 Range/Units 04:15 04:30 Sodium 138 137 (136-145) meq/L Potassium 4.2 4.3 (3.5-5.1) meq/L Chloride 97 L 96 L (98-107) meq/L Carbon Dioxide 33.4 H 34.1 H (21.0-32.0) meq/L BUN 23 H 24 H (7-18) mg/dL Creatinine 2.96 H 3.18 H (0.60-1.30) mg/dL Calcium 8.8 8.2 L (8.5-10.1) mg/dL AST 13 L 11 L (15-37) U/L ALT 12 10 L (12-78) U/L Alkaline Phosphatase 120 H 111 (45-117) U/L Total Protein 6.7 6.6 (6.4-8.2) g/dL Albumin 2.4 L 2.3 L (3.4-5.0) g/dL Intake and Output 03/15/18 03/16/18 03/16/18 22:59 06:59 14:59 Intake Total 850 / 850 820 / 820 Output Total 2450 / 2449 500 / 500 Balance -1600 / -1600 320 / 320 Intake: IV 100 / 100 100 / 100 Lasix Inj 100 MG In NS Inj 90 100 / 100 100 / 100 ML @ 10 mls/hr IV.CONT .Q10H [facility] Rx#:[id number] Oral 750 / 750 720 / 720 Output: Urine 500 / 500 Urine Amount (Catheter) 2449 / 2450 Indwelling Urethral Catheter 2449 Other: Date of Last Bowel Movement 03/15/18 03/15/18 03/16/18 # Bowel Movements 1 1 Weight 149 kg Assessment and Plan - Assessment (1) CHF (congestive heart failure) Code(s): I50.9 - Heart failure, unspecified Status: Acute (2) Atrial flutter Code(s): I48.92 - Unspecified atrial flutter Status: Acute (3) Obstructive sleep apnea Code(s): G47.33 - Obstructive sleep apnea (adult) (pediatric) Status: Chronic (4) BMI 50.0-59.9, adult Code(s): Z68.43 - Body mass index (BMI) 50-59.9, adult Status: Chronic (5) Coronary artery disease Code(s): I25.10 - Atherosclerotic heart disease of [place] coronary artery without angina pectoris Status: Chronic (6) Diabetes mellitus Code(s): E11.9 - Type 2 diabetes mellitus without complications Status: Chronic (7) History of essential hypertension Code(s): Z86.79 - Personal history of other diseases of the circulatory system Status: Chronic (8) Hyperlipidemia Code(s): E78.5 - Hyperlipidemia, unspecified Status: Chronic (9) Chronic kidney disease Code(s): N18.9 - Chronic kidney disease, unspecified Status: Acute (10) Depression Code(s): F32.9 - Major depressive disorder, single episode, unspecified Status : Chronic - Plan No new cardiac issues noted at this time. Patient's BP is better controlled today, we will continue the current treatment plan. Patient remains in chronic atrial flutter with controlled VR, we will continue with the current cardiac treatment plan. Patient's neurological status continues to improve, neurology evaluation in progress. Nephrology evaluation in progress. Patient's respiratory condition is improving. Continue ICU treatment. We will continue to monitor the patient during his hospitalization. He will follow up with Dr. Booth, his primary librarian specialist, when discharged from hospital. The patient was seen and evaluated by Dr. Hall who participated in care, management and decision making. - Attending Attestation Patient seen and examined. I reviewed and agree with the evaluation and plan as presented. BP and HR better controlled. Continue current program. Procedures - Arterial Line Size (Gauge): 20 (5) Coronary artery disease Qualifiers: Coronary Disease-Associated Artery/Lesion type: unspecified vessel or lesion type [place] vs. transplanted heart: b[place] heart Associated angina: without angina Qualified Code(s): I25.10 - Atherosclerotic heart disease of [place] coronary artery without angina pectoris (6) Diabetes mellitus Qualifiers: Diabetes mellitus type: type 2 Diabetes mellitus prison insulin use: with prison use Diabetes mellitus complication status: with kidney complications Diabetes mellitus complication detail: with other kidney complication Qualified Code(s): E11.29 - Type 2 diabetes mellitus with other diabetic kidney complication; Z79.4 - group home (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 (8) Hyperlipidemia Qualifiers: Hyperlipidemia type: unspecified Qualified Code(s): E78.5 - Hyperlipidemia, unspecified (10) Depression Qualifiers: Depression Type: major depressive disorder Major depression recurrence: recurrent Active/Remission status: remission status unspecified Qualified Code (s): F33.9 - Major depressive disorder, recurrent, unspecified
--- NOTE | 2018-03-16 13:36 | P.PNIM ---
Subjective Interval history: Patient awake and oriented. Does not appear to be in any acute distress. Physical Exam Vital signs: Vital Signs 03/15/18 14:00 03/15/18 14:01 03/15/18 15:00 Temperature Pulse Rate 89 89 88 Respiratory Rate 10 L 19 28 H Blood Pressure 138/58 L 164/62 H Pulse Oximetry 98 98 97 03/15/18 16:00 03/15/18 16:01 03/15/18 17:00 Temperature 98.6 F Pulse Rate 89 90 87 Respiratory Rate 43 H 32 H 9 L Blood Pressure 154/64 H Pulse Oximetry 98 98 98 03/15/18 17:01 03/15/18 17:52 03/15/18 18:00 Temperature Pulse Rate 85 89 82 Respiratory Rate 7 L 30 H Blood Pressure 179/69 H Pulse Oximetry 99 99 03/15/18 18:01 03/15/18 18:07 03/15/18 19:00 Temperature Pulse Rate 83 67 Respiratory Rate 22 15 Blood Pressure 153/70 H Pulse Oximetry 99 99 99 03/15/18 19:22 03/15/18 20:00 03/15/18 21:00 Temperature 99.7 F H Pulse Rate 69 76 64 Respiratory Rate 14 19 13 Blood Pressure 141/61 H 159/66 H Pulse Oximetry 100 98 99 03/15/18 21:01 03/15/18 22:00 03/15/18 22:01 Temperature Pulse Rate 64 65 65 Respiratory Rate 9 L 5 L 11 L Blood Pressure 141/59 H 142/54 H Pulse Oximetry 100 99 100 03/15/18 23:00 03/15/18 23:01 03/15/18 23:45 Temperature Pulse Rate 63 63 Respiratory Rate 12 12 Blood Pressure 131/54 L Pulse Oximetry 99 100 98 03/16/18 00:00 03/16/18 00:01 03/16/18 01:00 Temperature 98.6 F Pulse Rate 64 63 63 Respiratory Rate 8 L 10 L 7 L Blood Pressure 133/54 L Pulse Oximetry 100 100 100 03/16/18 01:01 03/16/18 02:00 03/16/18 02:01 Temperature Pulse Rate 63 64 64 Respiratory Rate 9 L 14 16 Blood Pressure 143/57 H 135/58 L Pulse Oximetry 100 100 100 03/16/18 03:00 03/16/18 03:01 03/16/18 04:00 Temperature 99 F Pulse Rate 63 62 63 Respiratory Rate 18 14 12 Blood Pressure 147/59 H Pulse Oximetry 100 100 100 03/16/18 04:01 03/16/18 04:02 03/16/18 05:00 Temperature Pulse Rate 65 79 Respiratory Rate 13 20 Blood Pressure 144/61 H 164/60 H Pulse Oximetry 100 98 95 03/16/18 06:00 03/16/18 06:01 03/16/18 07:00 Temperature Pulse Rate 79 79 80 Respiratory Rate 18 17 12 Blood Pressure 132/58 L Pulse Oximetry 99 98 97 03/16/18 07:37 03/16/18 07:52 03/16/18 08:00 Temperature 98.7 F Pulse Rate 80 81 Respiratory Rate 12 19 Blood Pressure 120/55 L Pulse Oximetry 96 98 98 03/16/18 08:01 03/16/18 09:00 03/16/18 10:00 Temperature Pulse Rate 82 79 77 Respiratory Rate 15 7 L 22 Blood Pressure 134/56 L 138/59 L 129/71 Pulse Oximetry 98 97 93 L 03/16/18 11:00 03/16/18 11:01 03/16/18 12:00 Temperature 98.8 F Pulse Rate 79 79 79 Respiratory Rate 16 21 17 Blood Pressure 134/60 Pulse Oximetry 96 93 L 96 03/16/18 12:35 Temperature Pulse Rate 81 Respiratory Rate 20 Blood Pressure 128/55 L Pulse Oximetry 96 Intake & Output 03/15/18 03/16/18 03/16/18 18:59 06:59 18:59 Intake Total 950 / 950 820 / 820 Output Total 2450 / 2450 500 / 500 Balance -1500 / -1500 320 / 320 Weight 149 kg Intake: IV 200 / 200 100 / 100 Lasix Inj 100 MG In NS Inj 90 200 / 200 100 / 100 ML @ 10 mls/hr IV.CONT .Q10H [facility] Rx#:[id number] Oral 750 / 750 720 / 720 Output: Urine 500 / 500 Urine Amount (Catheter) 2450 / 2450 Indwelling Urethral Catheter 2450 / 2450 Other: Date of Last Bowel Movement 03/15/18 03/15/18 03/16/18 # Bowel Movements 1 1 Narrative: General patient on supplemental oxygen, no acute distress HEENT extraocular movements are intact, clear oropharyngeal mucosa, no JVD Cardiovascular S1-S2 audible, RRR, no murmurs rubs or gallops Respiratory bibasilar crackles Abdomen soft, obese, nontender, nondistended, normal bowel sounds Extremities 1+ pitting edema bilateral lower extremities up to the shins. Neuro patient can move all 4 extremities however appears to be weak in all of his extremities lower worse than upper, sensation is intact bilaterally. - Urinary Catheter Management Indwelling Urethral Catheter Cath placed during this visit: yes, but has since been removed by the nurse Reason for continuing: Chronic Urinary Retention Insertion date: 02/26/18 Insertion time: 16:00 Removal date: 02/26/18 Removal time: 15:30 Results - Labs CBC & Chem 7: 03/16/18 04:30 03/16/18 04:30 Laboratory Results - last 24 hr 03/16/18 03/16/18 03/16/18 04:30 04:30 04:30 WBC 9.8 RBC 2.91 L Hgb 8.6 L Hct 25.2 L MCV 86.6 MCH 29.5 MCHC 34.0 RDW 15.4 Plt Count 182 MPV 8.4 PT 24.8 H INR 2.5 Sodium 137 Potassium 4.3 Chloride 96 L Carbon Dioxide 34.1 H Anion Gap 7 BUN 24 H Creatinine 3.18 H Estimated GFR 19 L Random Glucose 115 H Calcium 8.2 L Phosphorus 3.7 Magnesium 2.0 Total Bilirubin 0.3 AST 11 L ALT 10 L Alkaline Phosphatase 111 Total Protein 6.6 Albumin 2.3 L Assessment and Plan - Assessment (1) Acute renal failure Code(s): N17.9 - Acute kidney failure, unspecified Status: Acute (2) Chronic kidney disease Code(s): N18.9 - Chronic kidney disease, unspecified Status: Acute (3) Shock Code(s): R57.9 - Shock, unspecified Status: Acute (4) BMI 50.0-59.9, adult Code(s): Z68.43 - Body mass index (BMI) 50-59.9, adult Status: Chronic (5) Diabetes mellitus Code(s): E11.9 - Type 2 diabetes mellitus without complications Status: Chronic - Plan This patient is a 72-year-old male with a diagnosis of morbid obesity , depression, dementia, coronary artery disease, hypertension, dyslipidemia, diabetes, atrial fibrillation, hypothyroidism, peripheral neuropathy, chronic kidney disease stage IV, patient has a history of chronic opiate use. The patient was initially sent from [facility] where he was found to have altered mental status, low blood pressure and a heart rate in the 30s and was given atropine. Patient also had a low systolic blood pressure and needed IV pressors. Patient was also in acute kidney injury with elevated potassium which was not improving with treatment and needed hemodialysis. Neuro/psych Acute metabolic encephalopathy History of TIA Depression Peripheral neuropathy secondary to diabetes Dementia Patient is awake and appears to be oriented to person and place. Continue memantine 5 mg daily for dementia. Continue gabapentin. Psych: The patient for depression, Cymbalta dose was increased. Namenda dose increased. Seroquel added to the patient's medication regimen. Patient's encephalopathy has improved. Patient has history of TIA, continue statin, patient currently on heparin drip which will likely be changed to a anticoagulant given his atrial fibrillation/ flutter. Cardiovascular Atrial flutter/atrial fibrillation Dyslipidemia Coronary artery disease Congestive heart failure with preserved ejection fraction Heart rate under control. Continue amiodarone. BB started by Cardiology. Continue coumadin, INR 2.5 today at goal. Pharmacy following and adjusting coumadin. PT/INR ordered for tomorrow a.m., will closely monitor as patient is also on amiodarone. Continue statin Currently on Lasix drip, albumin, nephrology also following. Will discuss if Lasix gtt can be stopped and IV pushes of Lasix initiated. Strict ins and outs. Patient will possibly be transferred out of the ICU today. Respiratory Obstructive sleep apnea Right-sided pleural effusion status post thoracentesis Patient no longer requiring bipap throughout the day. Continue BiPAP at night. Patient is status post right-sided thoracentesis. Pulmonary following the patient, will continue to follow with the recommendations. Completed course of IV antibiotics. Patient has been on IV antibiotics since . Endocrine Diabetes Hypothyroidism Continue levothyroxine. Blood sugars have been running between 110-190s. Case and plan discussed with the nurse. No sliding scale for now, blood sugars acceptable. Renal Acute kidney injury on chronic kidney disease stage IIIb Serum creatinine is 3.1 as of today. He is currently on a Lasix drip and albumin. Nephrology following the patient, will continue to follow with the recommendations. Possibly will switch to IV pushes of lasix. Will discuss with nephrology. DVT prophylaxis, patient is on coumadin. Possibly transfer pt out of icu today. 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
--- NOTE | 2018-03-16 20:13 | P.PNPL ---
Subjective Interval history: 72 YOWM with RF, renal insuff Used NC, now on CPAP No CP No fever Sleeping, no new complaint reported by RN Physical Exam Vital signs: Vital Signs 03/15/18 21:00 03/15/18 21:01 03/15/18 22:00 Temperature Pulse Rate 64 64 65 Respiratory Rate 13 9 L 5 L Blood Pressure 141/59 H Pulse Oximetry 99 100 99 03/15/18 22:01 03/15/18 23:00 03/15/18 23:01 Temperature Pulse Rate 65 63 63 Respiratory Rate 11 L 12 12 Blood Pressure 142/54 H 131/54 L Pulse Oximetry 100 99 100 03/15/18 23:45 03/16/18 00:00 03/16/18 00:01 Temperature 98.6 F Pulse Rate 64 63 Respiratory Rate 8 L 10 L Blood Pressure 133/54 L Pulse Oximetry 98 100 100 03/16/18 01:00 03/16/18 01:01 03/16/18 02:00 Temperature Pulse Rate 63 63 64 Respiratory Rate 7 L 9 L 14 Blood Pressure 143/57 H Pulse Oximetry 100 100 100 03/16/18 02:01 03/16/18 03:00 03/16/18 03:01 Temperature Pulse Rate 64 63 62 Respiratory Rate 16 18 14 Blood Pressure 135/58 L 147/59 H Pulse Oximetry 100 100 100 03/16/18 04:00 03/16/18 04:01 03/16/18 04:02 Temperature 99 F Pulse Rate 63 65 Respiratory Rate 12 13 Blood Pressure 144/61 H Pulse Oximetry 100 100 98 03/16/18 05:00 03/16/18 06:00 03/16/18 06:01 Temperature Pulse Rate 79 79 79 Respiratory Rate 20 18 17 Blood Pressure 164/60 H 132/58 L Pulse Oximetry 95 99 98 03/16/18 07:00 03/16/18 07:37 03/16/18 07:52 Temperature Pulse Rate 80 80 Respiratory Rate 12 12 Blood Pressure 120/55 L Pulse Oximetry 97 96 98 03/16/18 08:00 03/16/18 08:01 03/16/18 09:00 Temperature 98.7 F Pulse Rate 81 82 79 Respiratory Rate 19 15 7 L Blood Pressure 134/56 L 138/59 L Pulse Oximetry 98 98 97 03/16/18 10:00 03/16/18 11:00 03/16/18 11:01 Temperature Pulse Rate 77 79 79 Respiratory Rate 22 16 21 Blood Pressure 129/71 134/60 Pulse Oximetry 93 L 96 93 L 03/16/18 12:00 03/16/18 12:35 03/16/18 13:00 Temperature 98.8 F Pulse Rate 79 81 79 Respiratory Rate 17 20 12 Blood Pressure 128/55 L 127/56 L Pulse Oximetry 96 96 95 03/16/18 14:00 03/16/18 15:00 03/16/18 15:01 Temperature Pulse Rate 78 79 78 Respiratory Rate 8 L 24 24 Blood Pressure 135/49 L 130/56 L Pulse Oximetry 97 94 L 94 L 03/16/18 16:00 03/16/18 18:00 03/16/18 19:39 Temperature 98.6 F Pulse Rate 77 69 Respiratory Rate 10 L Blood Pressure 126/61 Pulse Oximetry 99 99 Intake & Output 03/16/18 03/16/18 03/17/18 06:59 18:59 06:59 Intake Total 820 / 820 1000 / 1000 Output Total 500 / 500 2149 / 2149 Balance 320 / 320 -1150 / -1150 Weight 149 kg Intake: IV 100 / 100 100 / 100 Lasix Inj 100 MG In NS Inj 90 100 / 100 100 / 100 ML @ 10 mls/hr IV.CONT .Q10H [facility] Rx#:[id number] Oral 720 / 720 900 / 900 Output: Urine 500 / 500 Urine Amount (Catheter) 2149 Indwelling Urethral Catheter 2149 Other: Date of Last Bowel Movement 03/15/18 03/16/18 # Bowel Movements 1 3 GENERAL: WBWn NAD SKIN: Warm and dry. HEAD: Normocephalic. EYES: No scleral icterus. No injection or drainage. NECK: Supple, trachea midline. No JVD or lymphadenopathy. CARDIOVASCULAR: Regular rate and rhythm without murmurs, gallops, or rubs. RESPIRATORY: Breath sounds equal bilaterally. No accessory muscle use. GASTROINTESTINAL: Abdomen soft, non-tender, nondistended. MUSCULOSKELETAL: No cyanosis, or edema. BACK: Nontender without obvious deformity. No CVA tenderness. - Urinary Catheter Management Indwelling Urethral Catheter Cath placed during this visit: yes, but has since been removed by the nurse Reason for continuing: Chronic Urinary Retention Insertion date: 02/26/18 Insertion time: 16:00 Removal date: 02/26/18 Removal time: 15:30 Assessment and Plan - Plan IMPRESSION: Resp Failure--improved renal Failure HTN ?MIRTA PLAN: Cont CPAP Try NC in AM Aerosol nebs Lasix drip Monitor Lytes Stable to tr to floor. Procedures - Arterial Line Size (Gauge): 20
[2018-03-16] MEDS: QUEtiapine 25 MG Tablet PO SCH (20:38)
--- NOTE | 2018-03-16 21:33 | P.PNNP ---
Subjective Interval history: Patient seen in the late afternoon, still has mild SOB, with nasal cannula. Physical Exam Vital signs: Vital Signs 03/15/18 22:00 03/15/18 22:01 03/15/18 23:00 Temperature Pulse Rate 65 65 63 Respiratory Rate 5 L 11 L 12 Blood Pressure 142/54 H Pulse Oximetry 99 100 99 03/15/18 23:01 03/15/18 23:45 03/16/18 00:00 Temperature Pulse Rate 63 64 Respiratory Rate 12 8 L Blood Pressure 131/54 L Pulse Oximetry 100 98 100 03/16/18 00:01 03/16/18 01:00 03/16/18 01:01 Temperature 98.6 F Pulse Rate 63 63 63 Respiratory Rate 10 L 7 L 9 L Blood Pressure 133/54 L 143/57 H Pulse Oximetry 100 100 100 03/16/18 02:00 03/16/18 02:01 03/16/18 03:00 Temperature Pulse Rate 64 64 63 Respiratory Rate 14 16 18 Blood Pressure 135/58 L Pulse Oximetry 100 100 100 03/16/18 03:01 03/16/18 04:00 03/16/18 04:01 Temperature 99 F Pulse Rate 62 63 65 Respiratory Rate 14 12 13 Blood Pressure 147/59 H 144/61 H Pulse Oximetry 100 100 100 03/16/18 04:02 03/16/18 05:00 03/16/18 06:00 Temperature Pulse Rate 79 79 Respiratory Rate 20 18 Blood Pressure 164/60 H Pulse Oximetry 98 95 99 03/16/18 06:01 03/16/18 07:00 03/16/18 07:37 Temperature Pulse Rate 79 80 80 Respiratory Rate 17 12 12 Blood Pressure 132/58 L 120/55 L Pulse Oximetry 98 97 96 03/16/18 07:52 03/16/18 08:00 03/16/18 08:01 Temperature 98.7 F Pulse Rate 81 82 Respiratory Rate 19 15 Blood Pressure 134/56 L Pulse Oximetry 98 98 98 03/16/18 09:00 03/16/18 10:00 03/16/18 11:00 Temperature Pulse Rate 79 77 79 Respiratory Rate 7 L 22 16 Blood Pressure 138/59 L 129/71 Pulse Oximetry 97 93 L 96 03/16/18 11:01 03/16/18 12:00 03/16/18 12:35 Temperature 98.8 F Pulse Rate 79 79 81 Respiratory Rate 21 17 20 Blood Pressure 134/60 128/55 L Pulse Oximetry 93 L 96 96 03/16/18 13:00 03/16/18 14:00 03/16/18 15:00 Temperature Pulse Rate 79 78 79 Respiratory Rate 12 8 L 24 Blood Pressure 127/56 L 135/49 L Pulse Oximetry 95 97 94 L 03/16/18 15:01 03/16/18 16:00 03/16/18 18:00 Temperature 98.6 F Pulse Rate 78 77 69 Respiratory Rate 24 10 L Blood Pressure 130/56 L 126/61 Pulse Oximetry 94 L 99 03/16/18 19:39 03/16/18 20:00 Temperature 98.6 F Pulse Rate 71 Respiratory Rate 14 Blood Pressure 124/56 L Pulse Oximetry 99 98 Intake & Output 03/16/18 03/16/18 03/17/18 06:59 18:59 06:59 Intake Total 820 / 820 1000 / 1000 Output Total 500 / 500 2149 / 2149 Balance 320 / 320 -1150 / -1150 Weight 149 kg Intake: IV 100 / 100 100 / 100 Lasix Inj 100 MG In NS Inj 90 100 / 100 100 / 100 ML @ 10 mls/hr IV.CONT .Q10H [facility] Rx#:[id number] Oral 720 / 720 900 / 900 Output: Urine 500 / 500 Urine Amount (Catheter) 2149 Indwelling Urethral Catheter 2149 Other: Date of Last Bowel Movement 03/15/18 03/16/18 03/16/18 # Bowel Movements 1 3 Narrative: General patient on supplemental oxygen, no acute distress HEENT extraocular movements are intact, clear oropharyngeal mucosa, no JVD Cardiovascular S1-S2 audible, RRR, no murmurs rubs or gallops Respiratory bibasilar crackles Abdomen soft, obese, nontender, nondistended, normal bowel sounds Extremities 1+ pitting edema bilateral lower extremities up to the shins. Neuro patient can move all 4 extremities however appears to be weak in all of his extremities lower worse than upper, sensation is intact bilaterally. - Urinary Catheter Management Indwelling Urethral Catheter Cath placed during this visit: yes, but has since been removed by the nurse Reason for continuing: Chronic Urinary Retention Insertion date: 02/26/18 Insertion time: 16:00 Removal date: 02/26/18 Removal time: 15:30 Assessment and Plan - Assessment (1) Acute renal failure Code(s): N17.9 - Acute kidney failure, unspecified Status: Acute (2) Chronic kidney disease Code(s): N18.9 - Chronic kidney disease, unspecified Status: Acute (3) Shock Code(s): R57.9 - Shock, unspecified Status: Acute (4) BMI 50.0-59.9, adult Code(s): Z68.43 - Body mass index (BMI) 50-59.9, adult Status: Chronic (5) Diabetes mellitus Code(s): E11.9 - Type 2 diabetes mellitus without complications Status: Chronic Qualifiers: Diabetes mellitus type: type 2 Diabetes mellitus alf insulin use: with alf use Diabetes mellitus complication status: with kidney complications Diabetes mellitus complication detail: with other kidney complication Qualified Code(s): E11.29 - Type 2 diabetes mellitus with other diabetic kidney complication; Z79.4 - long term care pharmacist (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 - Plan Patient with chronic kidney disease and develop PIERRE. Creatinine increase slightly to 3.1. K is normal. Urine out put is good. Continue diuresis with Lasix/albumin, follow labs. Edema improving No need for dialysis at this point, continue supportive care. D/C Lasix infusion and start Lasix IV. Follow the urine out put and BMP. Procedures - Arterial Line Size (Gauge): 20
[2018-03-17 05:14] LABS: INR 2.7 Ratio; Prothrombin Time 27.3 sec (9.8-11.6)
[2018-03-17] MEDS: Levothyroxine 50 MCG Tablet PO SCH (06:46)
[2018-03-17] MEDS: Potassium Chloride 25 MEQ Effervescent Tablet PO SCH ×2 (10:20→22:10)
[2018-03-17] MEDS: Gabapentin 100 MG Capsule PO SCH ×2 (10:21→22:10)
[2018-03-17] MEDS: Senna/Docusate Sodium 8.6/50 MG Tablet PO SCH ×2 (10:22→22:11)
[2018-03-17] MEDS: Amiodarone 200 MG Tablet PO SCH (10:22)
[2018-03-17] MEDS: Ascorbic Acid 500 MG Tablet PO SCH ×2 (10:22→22:11)
[2018-03-17] MEDS: Metoprolol Tartrate 25 MG Tablet PO SCH ×2 (10:23→22:11)
[2018-03-17] MEDS: Nystatin 100,000 UNITS/GM Powder 15 GM Bottle TOPICAL SCH ×2 (10:44→22:19)
[2018-03-17] MEDS: Morphine Sulfate Inj 2 MG/ML Vial IV.PUSH PRN (11:42)
--- NOTE | 2018-03-17 15:43 | P.PNPL ---
Subjective Interval history: 72 YOWM with RF, renal insuff On Nasal cannula Feels tired at the end of the day No CP No fever Physical Exam Vital signs: Vital Signs 03/16/18 16:00 03/16/18 18:00 03/16/18 19:39 Temperature 98.6 F Pulse Rate 77 69 Respiratory Rate 10 L Blood Pressure 126/61 Pulse Oximetry 99 99 03/16/18 20:00 03/16/18 22:00 03/16/18 23:40 Temperature 98.6 F Pulse Rate 71 62 Respiratory Rate 14 Blood Pressure 124/56 L Pulse Oximetry 98 99 03/17/18 00:00 03/17/18 02:00 03/17/18 04:00 Temperature 98.3 F 98.3 F Pulse Rate 60 68 61 Respiratory Rate 16 21 Blood Pressure 111/48 L 123/66 Pulse Oximetry 98 94 L 03/17/18 04:06 03/17/18 06:00 03/17/18 07:00 Temperature Pulse Rate 66 71 Respiratory Rate 10 L Blood Pressure 131/58 L Pulse Oximetry 96 97 03/17/18 08:00 03/17/18 08:18 03/17/18 09:00 Temperature 98.0 F Pulse Rate 81 82 Respiratory Rate 20 14 Blood Pressure 149/56 H Pulse Oximetry 96 96 97 03/17/18 09:01 03/17/18 10:00 03/17/18 10:01 Temperature Pulse Rate 83 85 84 Respiratory Rate 14 35 H 33 H Blood Pressure 137/51 L 120/49 L 120/49 L Pulse Oximetry 96 95 96 03/17/18 11:00 03/17/18 11:01 03/17/18 12:00 Temperature 97.7 F Pulse Rate 80 82 78 Respiratory Rate 10 L 14 18 Blood Pressure 124/58 L 124/58 L 132/51 L Pulse Oximetry 96 99 96 03/17/18 13:00 Temperature 97.7 F Pulse Rate 78 Respiratory Rate 18 Blood Pressure 132/51 L Pulse Oximetry 98 Intake & Output 03/16/18 03/17/18 03/17/18 18:59 06:59 18:59 Intake Total 1000 / 1000 300 / 300 Output Total 2150 / 2150 1000 / 1000 Balance -1150 / -1150 -700 / -700 Weight 145.7 kg Intake: IV 100 / 100 Lasix Inj 100 MG In NS Inj 90 100 / 100 ML @ 10 mls/hr IV.CONT .Q10H [facility] Rx#:[id number] Oral 900 / 900 300 / 300 Output: Urine Amount (Catheter) 2149 1000 / 1000 Indwelling Urethral Catheter 2149 1000 / 1000 Other: Date of Last Bowel Movement 03/16/18 03/17/18 03/17/18 # Bowel Movements 3 1 # Incontinent Bowel Movements 1 GENERAL: Elderly WM, NAD SKIN: Warm and dry. HEAD: Normocephalic. EYES: No scleral icterus. No injection or drainage. NECK: Supple, trachea midline. No JVD or lymphadenopathy. CARDIOVASCULAR: Regular rate and rhythm without murmurs, gallops, or rubs. RESPIRATORY: Breath sounds equal bilaterally. No accessory muscle use. GASTROINTESTINAL: Abdomen soft, non-tender, nondistended. MUSCULOSKELETAL: No cyanosis, or edema. BACK: Nontender without obvious deformity. No CVA tenderness. - Urinary Catheter Management Indwelling Urethral Catheter Cath placed during this visit: yes, but has since been removed by the nurse Reason for continuing: Chronic Urinary Retention Insertion date: 02/26/18 Insertion time: 16:00 Removal date: 02/26/18 Removal time: 15:30 Assessment and Plan - Plan IMPRESSION: Resp Failure--improved renal Failure HTN ?MIRTA PLAN: Supplement 02 with NC CPAP at night and prn Aerosol nebs Lasix drip Monitor Lytes Procedures - Arterial Line Size (Gauge): 20
--- NOTE | 2018-03-17 16:41 | P.PNCA ---
Subjective Interval history: Patient denies any CP, pressure, palpitations, dizziness or edema. Patient does complain of mild SOB that he wishes would go away. Medications and Allergies Allergies Allergy/AdvReac Type Severity Reaction Status Date / Time daptomycin Allergy Severe Blister Verified 03/17/18 11:59 Sulfa (Sulfonamide Allergy Mild RASH Verified 03/17/18 12:00 Antibiotics) Home Medications Medication Instructions Recorded Confirmed Type Lactobacillus acidophilus 1 tab PO BID 02/26/18 02/26/18 History [Acidophilus] alfuzosin 10 mg PO DAILY 02/26/18 02/26/18 History amino acids-protein hydrolys 30 ml PO DAILY 02/26/18 02/26/18 History [Pro-Stat Sugar Free] amiodarone 200 mg PO DAILY 02/26/18 02/26/18 History amlodipine 5 mg PO DAILY 02/26/18 02/26/18 History ascorbic acid (vitamin C) [Vitamin 500 mg PO BID 02/26/18 02/26/18 History C] atorvastatin 20 mg PO HS 02/26/18 02/26/18 History bisacodyl [Dulcolax (bisacodyl)] 10 mg [place] DAILY PRN 02/26/18 02/26/18 History duloxetine [Cymbalta] 20 mg PO DAILY 02/26/18 02/26/18 History furosemide [Lasix] 20 mg PO BID 02/26/18 02/26/18 History gabapentin 600 mg PO TID 02/26/18 02/26/18 History insulin lispro [Humalog U-100 2 - 10 unit SUBCUT ACHS 02/26/18 02/26/18 History Insulin] levothyroxine 50 mcg PO DAILY 02/26/18 02/26/18 History magnesium hydroxide [Milk of 30 ml PO DIRECTED PRN 02/26/18 02/26/18 History Magnesia] memantine [Namenda] 5 mg PO QPM 02/26/18 02/26/18 History metoprolol tartrate 25 mg PO BID 02/26/18 02/26/18 History morphine [MS Contin] 15 mg PO Q12H 02/26/18 02/26/18 History multivitamin [Tab-A-Lucille] 1 tab PO DAILY 02/26/18 02/26/18 History olmesartan 20 mg PO DAILY 02/26/18 02/26/18 History ondansetron HCl [Zofran] 4 mg PO Q8H PRN 02/26/18 02/26/18 History ondansetron [Zofran ODT] 4 mg PO Q6H PRN 02/26/18 02/26/18 History rivaroxaban [Xarelto] 20 mg PO QPM 02/26/18 02/26/18 History sennosides-docusate sodium 2 tab PO BID PRN 02/26/18 02/26/18 History sodium phosphates [Fleet Enema] 118 ml [place] DIRECTED PRN 02/26/18 02/26/18 History zinc sulfate 220 mg PO DAILY 02/26/18 02/26/18 History Active Medications: Active Medications Acetaminophen (Tylenol) 650 mg PO Q6H PRN PRN Reason: FEVER Last Admin: 03/04/18 17:51 Dose: 650 mg Acetaminophen (Tylenol) 650 mg PO UNSCH PRN PRN Reason: SEE LABEL COMMENTS Hydrocodone Bitart/Acetaminophen ([place] 5/325) 1 tab PO Q4H PRN PRN Reason: Pain 1 through 5 Last Admin: 03/09/18 08:52 Dose: 1 tab Al Hydroxide/Mg Hydroxide (Milk Of Freda Arriaga) 30 ml PO Q12H PRN PRN Reason: Mild Constipation Albuterol (Albuterol Neb (Prn)) 2.5 mg NEB Q2HR NEB PRN PRN Reason: SHORTNESS OF BREATH/WHEEZING Amiodarone HCl (Cordarone) 200 mg PO DAILY [facility] Last Admin: 03/17/18 10:22 Dose: 200 mg Ascorbic Acid (Vitamin C) 500 mg PO BID [facility] Last Admin: 03/17/18 10:22 Dose: 500 mg Atorvastatin Calcium (Lipitor) 20 mg PO HS [facility] Last Admin: 03/16/18 20:37 Dose: 20 mg Bisacodyl (Dulcolax Supp) 10 mg RECTAL DAILY PRN PRN Reason: SEVERE CONSITIPATION Clonidine HCl (Catapres) 0.1 mg PO UNSCH PRN PRN Reason: SEE LABEL COMMENTS Diphenhydramine HCl (Benadryl) 25 mg PO UNSCH PRN PRN Reason: SEE LABEL COMMENTS Last Admin: 03/04/18 21:52 Dose: 25 mg Duloxetine HCl (Cymbalta) 30 mg PO DAILY [facility] Last Admin: 03/17/18 10:42 Dose: 30 mg Furosemide (Lasix Inj) 40 mg IV.PUSH TID [facility] Last Admin: 03/17/18 10:22 Dose: 40 mg Gabapentin (Neurontin) 200 mg PO BID [facility] Last Admin: 03/17/18 10:21 Dose: 200 mg Gelatin (Gelfoam 12 Mm/7 Mm Topical) 1 foam TOPICAL PRN PRN PRN Reason: help stop bleeding from site Last Admin: 03/05/18 05:08 Dose: 1 foam Gentamicin Sulfate (Gentamicin Inj) 20 mg OTHER WITH DIALYSIS PRN PRN Reason: Dwell Gentamycin Lock Last Admin: 03/03/18 09:16 Dose: 20 mg Heparin Sodium (Porcine) (Heparin Inj) 1,000 units OTHER WITH DIALYSIS PRN PRN Reason: Dwell Heparin to Fill Catheter Last Admin: 03/03/18 09:15 Dose: 1,000 units Heparin Sodium (Porcine) (Heparin Inj) 8,000 units OTHER WITH DIALYSIS PRN PRN Reason: for machine prime Hydralazine HCl (Apresoline Inj) 10 mg IV.PUSH Q1H PRN PRN Reason: SYS BP GREATER THAN 170 MMHG Last Admin: 03/14/18 15:40 Dose: 10 mg Propofol (Diprivan 1000 Mg/100 Ml Inj) 1,000 mg in 100 mls @ 5.171 mls/hr IV.CONT TITRATE PRN; Protocol PRN Reason: Per Protocol Albumin Human (Flexbumin 25% Inj) 100 mls @ 60 mls/hr IV.SIG WITH DIALYSIS PRN PRN Reason: hypotension / volume replace Last Infusion: 03/04/18 07:00 Dose: Infused Sodium Chloride (Ns Inj) 1,000 mls @ 0 mls/hr OTHER .Q0M PRN PRN Reason: for prime and rinse back Sodium Chloride (Ns Inj) 1,000 mls @ 200 mls/hr OTHER .Q5H PRN PRN Reason: for dialyzer flush PRN Sodium Chloride (Ns Inj) 1,000 mls @ 0 mls/hr IV.CONT .Q0M PRN PRN Reason: hypotension / volume replace Lactulose (Lactulose Liq) 30 ml PO DAILY PRN PRN Reason: SEVERE CONSITIPATION Levothyroxine Sodium (Synthroid) 50 mcg PO DAILY@0600 [facility] Last Admin: 03/17/18 06:46 Dose: 50 mcg Mannitol (Mannitol Inj) 12.5 gm IV.PUSH UNSCH PRN PRN Reason: hypotension / volume replace Memantine (Namenda) 10 mg PO QPM [facility] Last Admin: 03/16/18 18:01 Dose: 10 mg Metoprolol Tartrate (Lopressor) 25 mg PO BID [facility] Last Admin: 03/17/18 10:23 Dose: 25 mg Morphine Sulfate (Morphine Inj) 2 mg IV.PUSH Q3H PRN PRN Reason: Pain 6 through 10 Last Admin: 03/17/18 11:42 Dose: 2 mg Multivitamins (Theragran) 1 tab PO DAILY [facility] Last Admin: 03/17/18 10:20 Dose: 1 tab Nitroglycerin (Nitro-Bid 2% Oint) 2 inch TOPICAL Q6HR PRN PRN Reason: SYS BP GREATER THAN 170 MMHG Nitroglycerin (Nitrostat Sl) 0.4 mg SL Q5M PRN PRN Reason: CHEST PAIN Nystatin (Mycostatin Powder) 1 applicatio TOPICAL BID [facility] Last Admin: 03/17/18 10:44 Dose: 1 applicatio Ondansetron HCl (Zofran Inj) 4 mg IV.PUSH Q6H PRN PRN Reason: NAUSEA OR VOMITING Ondansetron HCl (Zofran Inj) 4 mg IV.PUSH UNSCH PRN PRN Reason: NAUSEA OR VOMITING Pantoprazole Sodium (Protonix) 40 mg PO DAILY [facility] Last Admin: 03/17/18 10:21 Dose: 40 mg Pharmacy Profile Note (Coumadin Consult Pharmacy) 1 each OTHER UNSCH PRN PRN Reason: PHARMACY DOCUMENTATION Potassium Bicarb/Potassium Chloride (K-Lyte Cl Eff) 25 meq PO BID [facility] Last Admin: 03/17/18 10:20 Dose: 25 meq Quetiapine Fumarate (Seroquel) 25 mg PO HS [facility] Last Admin: 03/16/18 20:38 Dose: 25 mg Senna/Docusate Sodium (Kim-Colace) 1 tab PO BID [facility] Last Admin: 03/17/18 10:22 Dose: 1 tab Sennosides (Senokot) 17.2 mg PO Q12H PRN PRN Reason: Moderate Constipation Sodium Chloride (Ns Flush) 2 ml IV.FLUSH BID [facility] Last Admin: 03/17/18 10:44 Dose: 2 ml Sodium Chloride (Ns Flush) 2 ml IV.FLUSH PRN PRN PRN Reason: FLUSH AFTER USING IV ACCESS Sodium Chloride (Ns Flush) 0 ml IV.FLUSH PRN PRN PRN Reason: FLUSH AFTER USING IV ACCESS Sodium Chloride (Ns Flush) 5 ml IV.FLUSH PRN PRN PRN Reason: flush each lumen during HD Tamsulosin HCl (Flomax) 0.4 mg PO DAILY [facility] Last Admin: 03/17/18 10:43 Dose: 0.4 mg Warfarin Sodium (Coumadin) 3 mg PO DAILY@1600 [facility] Zinc Sulfate (Zinc-220) 220 mg PO DAILY [facility] Last Admin: 03/17/18 10:20 Dose: 220 mg Physical Exam Vital signs: Vital Signs 03/16/18 18:00 03/16/18 19:39 03/16/18 20:00 Temperature 98.6 F Pulse Rate 69 71 Respiratory Rate 14 Blood Pressure 124/56 L Pulse Oximetry 99 98 03/16/18 22:00 03/16/18 23:40 03/17/18 00:00 Temperature 98.3 F Pulse Rate 62 60 Respiratory Rate 16 Blood Pressure 111/48 L Pulse Oximetry 99 98 03/17/18 02:00 03/17/18 04:00 03/17/18 04:06 Temperature 98.3 F Pulse Rate 68 61 Respiratory Rate 21 Blood Pressure 123/66 Pulse Oximetry 94 L 96 03/17/18 06:00 03/17/18 07:00 03/17/18 08:00 Temperature 98.0 F Pulse Rate 66 71 81 Respiratory Rate 10 L 20 Blood Pressure 131/58 L 149/56 H Pulse Oximetry 97 96 03/17/18 08:18 03/17/18 09:00 03/17/18 09:01 Temperature Pulse Rate 82 83 Respiratory Rate 14 14 Blood Pressure 137/51 L Pulse Oximetry 96 97 96 03/17/18 10:00 03/17/18 10:01 03/17/18 11:00 Temperature Pulse Rate 85 84 80 Respiratory Rate 35 H 33 H 10 L Blood Pressure 120/49 L 120/49 L 124/58 L Pulse Oximetry 95 96 96 03/17/18 11:01 03/17/18 12:00 03/17/18 13:00 Temperature 97.7 F 97.7 F Pulse Rate 82 78 78 Respiratory Rate 14 18 18 Blood Pressure 124/58 L 132/51 L 132/51 L Pulse Oximetry 99 96 98 Intake & Output 03/16/18 03/17/18 03/17/18 18:59 06:59 18:59 Intake Total 1000 / 1000 300 / 300 Output Total 2150 / 2150 1000 / 1000 Balance -1150 / -1150 -700 / -700 Weight 145.7 kg Intake: IV 100 / 100 Lasix Inj 100 MG In NS Inj 90 100 / 100 ML @ 10 mls/hr IV.CONT .Q10H [facility] Rx#:[id number] Oral 900 / 900 300 / 300 Output: Urine Amount (Catheter) 2149 / 2149 1000 / 1000 Indwelling Urethral Catheter 2149 1000 / 1000 Other: Date of Last Bowel Movement 03/16/18 03/17/18 03/17/18 # Bowel Movements 3 1 # Incontinent Bowel Movements 1 - Constitutional no acute distress - Routine HEENT Exam Head: Present: normocephalic Eye: Present: PERRL ENT: Present: mucous membranes moist - Routine Neck Exam Present: supple - Routine Respiratory Exam Present: CTA bilaterally, distant breath sounds - Routine Cardiovascular Exam Present: S1, S2, irregular rhythm - Routine Abdominal Exam Present: normoactive bowel sounds - Routine Extremities Exam Present: full ROM, pulses intact, normal capillary refill. Absent: cyanosis, clubbing, edema - Routine Skin Exam Present: intact - Routine Neurological Exam Present: alert, altered mental status - Detailed Neurological Exam: Coma Scale Eye Opening: Spontaneous Verbal Response: Confused Motor Response: Obey commands Isela Coma Scale Total: 14 - Routine Psychiatric Exam Present: unable to assess - Urinary Catheter Management Indwelling Urethral Catheter Cath placed during this visit: yes, but has since been removed by the nurse Reason for continuing: Chronic Urinary Retention Insertion date: 02/26/18 Insertion time: 16:00 Removal date: 02/26/18 Removal time: 15:30 Results 03/16/18 04:30 03/16/18 04:30 Cardiac Enzymes 03/16/18 Range/Units 04:30 AST 11 L (15-37) U/L Coagulation 03/16/18 03/17/18 Range/Units 04:30 04:50 PT 24.8 H 27.3 H (9.8-11.6) sec CBC 03/16/18 Range/Units 04:30 WBC 9.8 (4.0-11.0) th/mm3 RBC 2.91 L (4.50-5.90) mil/mm3 Hgb 8.6 L (13.0-17.0) gm/dL Hct 25.2 L (39.0-51.0) % Plt Count 182 (150-450) th/mm3 Comprehensive Metabolic Panel 03/16/18 Range/Units 04:30 Sodium 137 (136-145) meq/L Potassium 4.3 (3.5-5.1) meq/L Chloride 96 L (98-107) meq/L Carbon Dioxide 34.1 H (21.0-32.0) meq/L BUN 24 H (7-18) mg/dL Creatinine 3.18 H (0.60-1.30) mg/dL Calcium 8.2 L (8.5-10.1) mg/dL AST 11 L (15-37) U/L ALT 10 L (12-78) U/L Alkaline Phosphatase 111 (45-117) U/L Total Protein 6.6 (6.4-8.2) g/dL Albumin 2.3 L (3.4-5.0) g/dL Intake and Output 03/17/18 03/17/18 03/17/18 06:59 14:59 22:59 Intake Total 300 / 300 Output Total 1000 / 1000 Balance -700 / -700 Intake: Oral 300 / 300 Output: Urine Amount (Catheter) 1000 / 1000 Indwelling Urethral Catheter 1000 / 1000 Other: Date of Last Bowel Movement 03/17/18 03/17/18 03/17/18 # Bowel Movements 1 # Incontinent Bowel Movements 1 Weight 145.7 kg Assessment and Plan - Assessment (1) CHF (congestive heart failure) Code(s): I50.9 - Heart failure, unspecified Status: Acute (2) Atrial flutter Code(s): I48.92 - Unspecified atrial flutter Status: Acute (3) Obstructive sleep apnea Code(s): G47.33 - Obstructive sleep apnea (adult) (pediatric) Status: Chronic (4) BMI 50.0-59.9, adult Code(s): Z68.43 - Body mass index (BMI) 50-59.9, adult Status: Chronic (5) Coronary artery disease Code(s): I25.10 - Atherosclerotic heart disease of [place] coronary artery without angina pectoris Status: Chronic (6) Diabetes mellitus Code(s): E11.9 - Type 2 diabetes mellitus without complications Status: Chronic (7) History of essential hypertension Code(s): Z86.79 - Personal history of other diseases of the circulatory system Status: Chronic (8) Hyperlipidemia Code(s): E78.5 - Hyperlipidemia, unspecified Status: Chronic (9) Chronic kidney disease Code(s): N18.9 - Chronic kidney disease, unspecified Status: Acute (10) Depression Code(s): F32.9 - Major depressive disorder, single episode, unspecified Status : Chronic - Plan Patient's mental status continues to improve. BP and HR remain controlled. There have been no new cardiac issues at this time, we will continue with the current cardiac treatment plan and adjust as needed. He will follow up with Dr. Booth, his primary wastewater manager, when discharged from hospital. The patient was seen and evaluated by Dr. Hall who participated in care, management and decision making. - Attending Attestation Patient seen and examined. I reviewed and agree with the evaluation and plan as presented. No new cardiac issues. Continue current program. F/u with Dr. Booth. Procedures - Arterial Line Size (Gauge): 20 (5) Coronary artery disease Qualifiers: Coronary Disease-Associated Artery/Lesion type: unspecified vessel or lesion type [place] vs. transplanted heart: [place] heart Associated angina: without angina Qualified Code(s): I25.10 - Atherosclerotic heart disease of [place] coronary artery without angina pectoris (6) Diabetes mellitus Qualifiers: Diabetes mellitus type: type 2 Diabetes mellitus shelter insulin use: with termite technician use Diabetes mellitus complication status: with kidney complications Diabetes mellitus complication detail: with other kidney complication Qualified Code(s): E11.29 - Type 2 diabetes mellitus with other diabetic kidney complication; Z79.4 - senior living (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 (8) Hyperlipidemia Qualifiers: Hyperlipidemia type: unspecified Qualified Code(s): E78.5 - Hyperlipidemia, unspecified (10) Depression Qualifiers: Depression Type: major depressive disorder Major depression recurrence: recurrent Active/Remission status: remission status unspecified Qualified Code (s): F33.9 - Major depressive disorder, recurrent, unspecified
--- NOTE | 2018-03-17 18:05 | P.PNIM ---
Physical Exam Vital signs: Vital Signs 03/16/18 18:00 03/16/18 19:39 03/16/18 20:00 Temperature 98.6 F Pulse Rate 69 71 Respiratory Rate 14 Blood Pressure 124/56 L Pulse Oximetry 99 98 03/16/18 22:00 03/16/18 23:40 03/17/18 00:00 Temperature 98.3 F Pulse Rate 62 60 Respiratory Rate 16 Blood Pressure 111/48 L Pulse Oximetry 99 98 03/17/18 02:00 03/17/18 04:00 03/17/18 04:06 Temperature 98.3 F Pulse Rate 68 61 Respiratory Rate 21 Blood Pressure 123/66 Pulse Oximetry 94 L 96 03/17/18 06:00 03/17/18 07:00 03/17/18 08:00 Temperature 98.0 F Pulse Rate 66 71 81 Respiratory Rate 10 L 20 Blood Pressure 131/58 L 149/56 H Pulse Oximetry 97 96 03/17/18 08:18 03/17/18 09:00 03/17/18 09:01 Temperature Pulse Rate 82 83 Respiratory Rate 14 14 Blood Pressure 137/51 L Pulse Oximetry 96 97 96 03/17/18 10:00 03/17/18 10:01 03/17/18 11:00 Temperature Pulse Rate 85 84 80 Respiratory Rate 35 H 33 H 10 L Blood Pressure 120/49 L 120/49 L 124/58 L Pulse Oximetry 95 96 96 03/17/18 11:01 03/17/18 12:00 03/17/18 13:00 Temperature 97.7 F 97.7 F Pulse Rate 82 78 78 Respiratory Rate 14 18 18 Blood Pressure 124/58 L 132/51 L 132/51 L Pulse Oximetry 99 96 98 03/17/18 16:00 Temperature 98.0 F Pulse Rate 77 Respiratory Rate 18 Blood Pressure 127/51 L Pulse Oximetry 96 Intake & Output 03/16/18 03/17/18 03/17/18 18:59 06:59 18:59 Intake Total 1000 / 1000 300 / 300 Output Total 2150 / 2150 1000 / 1000 Balance -1150 / -1150 -700 / -700 Weight 145.7 kg Intake: IV 100 / 100 Lasix Inj 100 MG In NS Inj 90 100 / 100 ML @ 10 mls/hr IV.CONT .Q10H [facility] Rx#:[id number] Oral 900 / 900 300 / 300 Output: Urine Amount (Catheter) 2149 1000 / 1000 Indwelling Urethral Catheter 2149 1000 / 1000 Other: Date of Last Bowel Movement 03/16/18 03/17/18 03/17/18 # Bowel Movements 3 1 # Incontinent Bowel Movements 1 Narrative: General patient on supplemental oxygen, no acute distress HEENT extraocular movements are intact, clear oropharyngeal mucosa, no JVD Cardiovascular S1-S2 audible, RRR, no murmurs rubs or gallops Respiratory bibasilar crackles Abdomen soft, obese, nontender, nondistended, normal bowel sounds Extremities 1+ pitting edema bilateral lower extremities up to the shins. Neuro patient can move all 4 extremities however appears to be weak in all of his extremities lower worse than upper, sensation is intact bilaterally. - Urinary Catheter Management Indwelling Urethral Catheter Cath placed during this visit: yes, but has since been removed by the nurse Reason for continuing: Chronic Urinary Retention Insertion date: 02/26/18 Insertion time: 16:00 Removal date: 02/26/18 Removal time: 15:30 Results - Labs CBC & Chem 7: 03/16/18 04:30 03/16/18 04:30 Laboratory Results - last 24 hr 03/17/18 04:50 PT 27.3 H INR 2.7 Assessment and Plan - Assessment (1) Acute renal failure Code(s): N17.9 - Acute kidney failure, unspecified Status: Acute (2) Chronic kidney disease Code(s): N18.9 - Chronic kidney disease, unspecified Status: Acute (3) Shock Code(s): R57.9 - Shock, unspecified Status: Acute (4) BMI 50.0-59.9, adult Code(s): Z68.43 - Body mass index (BMI) 50-59.9, adult Status: Chronic (5) Diabetes mellitus Code(s): E11.9 - Type 2 diabetes mellitus without complications Status: Chronic - Plan This patient is a 72-year-old male with a diagnosis of morbid obesity , depression, dementia, coronary artery disease, hypertension, dyslipidemia, diabetes, atrial fibrillation, hypothyroidism, peripheral neuropathy, chronic kidney disease stage IV, patient has a history of chronic opiate use. The [facility] where he was found to have altered mental status, low blood pressure and a heart rate in the 30s and was given atropine. Patient also had a low systolic blood pressure and needed IV pressors. Patient was also in acute kidney injury with elevated potassium which was not improving with treatment and needed hemodialysis. Neuro/psych Acute metabolic encephalopathy, Resolved. History of TIA Depression Peripheral neuropathy secondary to diabetes Dementia Patient is awake and appears to be oriented to person and place. Continue memantine 5 mg daily for dementia. Continue gabapentin. Psych: The patient for depression, Cymbalta dose was increased. Namenda dose increased. Seroquel added to the patient's medication regimen. Patient's encephalopathy has improved. Patient has history of TIA, continue statin, patient currently on heparin drip which will likely be changed to a anticoagulant given his atrial fibrillation/ flutter. Cardiovascular Atrial flutter/atrial fibrillation Dyslipidemia Coronary artery disease Congestive heart failure with preserved ejection fraction Heart rate under control. Continue amiodarone. BB started by Cardiology. HR under control. Continue coumadin, INR 2.7 today at goal. Pharmacy following and adjusting coumadin. PT/INR ordered for tomorrow a.m., will closely monitor as patient is also on amiodarone. Continue statin Lasix gtt discontinued, discussed with nephrology. On iv lasix pushes. Respiratory Obstructive sleep apnea Right-sided pleural effusion status post thoracentesis Patient no longer requiring bipap throughout the day. Continue BiPAP at night. Patient is status post right-sided thoracentesis. Pulmonary following the patient, will continue to follow with the recommendations. Completed course of IV antibiotics. Patient has been on IV antibiotics since . Pulm Following Endocrine Diabetes Hypothyroidism Continue levothyroxine. Blood sugars have been running between 110-190s. Case and plan discussed with the nurse. No sliding scale for now, blood sugars acceptable. Renal Acute kidney injury on chronic kidney disease stage IIIb Serum creatinine is 3.1 as of yesterday. AM labs ordered for tomorrow. He is currently on Lasix iv pushes. Nephrology following the patient, will continue to follow with the recommendations. DVT prophylaxis, patient is on coumadin. Procedures - Arterial Line Size (Gauge): 20 (5) Diabetes mellitus Qualifiers: Diabetes mellitus type: type 2 Diabetes mellitus custodial insulin use: with custodial use Diabetes mellitus complication status: with kidney complications Diabetes mellitus complication detail: with other kidney complication Qualified Code(s): E11.29 - Type 2 diabetes mellitus with other diabetic kidney complication; Z79.4 - intermediate (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
[2018-03-17] MEDS: Morphine Inj 4 MG/ML Vial IV.PUSH PRN (18:27)
--- NOTE | 2018-03-17 21:41 | P.PNNP ---
Subjective Interval history: Patient seen in AM, breathing is better, with nasal cannula. Physical Exam Vital signs: Vital Signs 03/16/18 22:00 03/16/18 23:40 03/17/18 00:00 Temperature 98.3 F Pulse Rate 62 60 Respiratory Rate 16 Blood Pressure 111/48 L Pulse Oximetry 99 98 03/17/18 02:00 03/17/18 04:00 03/17/18 04:06 Temperature 98.3 F Pulse Rate 68 61 Respiratory Rate 21 Blood Pressure 123/66 Pulse Oximetry 94 L 96 03/17/18 06:00 03/17/18 07:00 03/17/18 08:00 Temperature 98.0 F Pulse Rate 66 71 81 Respiratory Rate 10 L 20 Blood Pressure 131/58 L 149/56 H Pulse Oximetry 97 96 03/17/18 08:18 03/17/18 09:00 03/17/18 09:01 Temperature Pulse Rate 82 83 Respiratory Rate 14 14 Blood Pressure 137/51 L Pulse Oximetry 96 97 96 03/17/18 10:00 03/17/18 10:01 03/17/18 11:00 Temperature Pulse Rate 85 84 80 Respiratory Rate 35 H 33 H 10 L Blood Pressure 120/49 L 120/49 L 124/58 L Pulse Oximetry 95 96 96 03/17/18 11:01 03/17/18 12:00 03/17/18 13:00 Temperature 97.7 F 97.7 F Pulse Rate 82 78 78 Respiratory Rate 14 18 18 Blood Pressure 124/58 L 132/51 L 132/51 L Pulse Oximetry 99 96 98 03/17/18 16:00 03/17/18 19:50 Temperature 98.0 F 97.7 F Pulse Rate 77 70 Respiratory Rate 18 17 Blood Pressure 127/51 L 131/52 L Pulse Oximetry 96 97 Intake & Output 03/17/18 03/17/18 03/18/18 06:59 18:59 06:59 Intake Total 300 / 300 1200 / 1200 Output Total 1000 / 1000 Balance -700 / -700 1200 / 1200 Weight 145.7 kg Intake: Oral 300 / 300 Oral Supplement 1200 / 1200 Output: Urine Amount (Catheter) 1000 / 1000 Indwelling Urethral Catheter 1000 / 1000 Other: # Voids 5 Date of Last Bowel Movement 03/17/18 03/17/18 # Bowel Movements 1 # Incontinent Bowel Movements 1 Narrative: General patient on supplemental oxygen, no acute distress HEENT extraocular movements are intact, clear oropharyngeal mucosa, no JVD Cardiovascular S1-S2 audible, RRR, no murmurs rubs or gallops Respiratory bibasilar crackles Abdomen soft, obese, nontender, nondistended, normal bowel sounds Extremities 1+ pitting edema bilateral lower extremities up to the shins. Neuro patient can move all 4 extremities however appears to be weak in all of his extremities lower worse than upper, sensation is intact bilaterally. - Urinary Catheter Management Indwelling Urethral Catheter Cath placed during this visit: yes, but has since been removed by the nurse Reason for continuing: Chronic Urinary Retention Insertion date: 02/26/18 Insertion time: 16:00 Removal date: 02/26/18 Removal time: 15:30 Assessment and Plan - Assessment (1) Acute renal failure Code(s): N17.9 - Acute kidney failure, unspecified Status: Acute (2) Chronic kidney disease Code(s): N18.9 - Chronic kidney disease, unspecified Status: Acute (3) Shock Code(s): R57.9 - Shock, unspecified Status: Acute (4) BMI 50.0-59.9, adult Code(s): Z68.43 - Body mass index (BMI) 50-59.9, adult Status: Chronic (5) Diabetes mellitus Code(s): E11.9 - Type 2 diabetes mellitus without complications Status: Chronic Qualifiers: Diabetes mellitus type: type 2 Diabetes mellitus intermediate teacher insulin use: with intermediate teacher use Diabetes mellitus complication status: with kidney complications Diabetes mellitus complication detail: with other kidney complication Qualified Code(s): E11.29 - Type 2 diabetes mellitus with other diabetic kidney complication; Z79.4 - [facility] (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 - Plan Patient with chronic kidney disease and develop PIERRE. Urine out put is good. Continue diuresis with Lasix/albumin, follow labs. Edema improving No need for dialysis at this point, continue supportive care. D/C Lasix infusion and start Lasix IV. No new BMP. Continue same diuretics. Follow the urine out put and BMP. Procedures - Arterial Line Size (Gauge): 20
[2018-03-17] MEDS: QUEtiapine 25 MG Tablet PO SCH (22:11)
[2018-03-18] MEDS: Levothyroxine 50 MCG Tablet PO SCH (05:57)
[2018-03-18 09:12] LABS: INR 2.4 Ratio; Prothrombin Time 24.3 sec (9.8-11.6)
[2018-03-18] MEDS: Senna/Docusate Sodium 8.6/50 MG Tablet PO SCH ×2 (09:33→20:51)
[2018-03-18] MEDS: Gabapentin 100 MG Capsule PO SCH ×2 (09:33→20:50)
[2018-03-18] MEDS: Metoprolol Tartrate 25 MG Tablet PO SCH ×2 (09:33→20:51)
[2018-03-18] MEDS: Ascorbic Acid 500 MG Tablet PO SCH ×2 (09:33→20:51)
[2018-03-18] MEDS: Potassium Chloride 25 MEQ Effervescent Tablet PO SCH ×2 (09:33→20:51)
[2018-03-18] MEDS: Amiodarone 200 MG Tablet PO SCH (09:33)
[2018-03-18] MEDS: Nystatin 100,000 UNITS/GM Powder 15 GM Bottle TOPICAL SCH ×2 (09:34→20:58)
[2018-03-18 09:52] LABS: Calcium 8.3 mg/dL (8.5-10.1); Carbon Dioxide 33.6 meq/L (21.0-32.0); Magnesium 2.2 mg/dL (1.5-2.5); Potassium 4.2 meq/L (3.5-5.1)
--- NOTE | 2018-03-18 16:16 | P.PNPL ---
Subjective Interval history: 72 YOWM with RF, renal insuff On Nasal cannula Feels tired at the end of the day No CP No fever Comfortable on NC Physical Exam Vital signs: Vital Signs 03/17/18 19:50 03/17/18 20:00 03/17/18 21:43 Temperature 97.7 F Pulse Rate 70 Respiratory Rate 17 Blood Pressure 131/52 L Pulse Oximetry 97 96 96 03/17/18 21:45 03/18/18 00:00 03/18/18 01:00 Temperature 97.0 F L Pulse Rate 56 L Respiratory Rate 18 Blood Pressure 109/51 L Pulse Oximetry 96 95 96 03/18/18 03:30 03/18/18 08:00 03/18/18 11:00 Temperature 97.2 F L 97.1 F L Pulse Rate 75 68 Respiratory Rate 16 16 Blood Pressure 119/64 176/77 H Pulse Oximetry 95 95 96 03/18/18 11:55 03/18/18 15:55 Temperature 97.4 F L Pulse Rate 78 Respiratory Rate 16 Blood Pressure 142/59 H Pulse Oximetry 96 95 Intake & Output 03/17/18 03/18/18 03/18/18 18:59 06:59 18:59 Intake Total 1200 / 1200 200 / 200 Output Total 3200 / 3200 Balance 1200 / 1200 -3000 / -3000 Weight 145.7 kg Intake: Oral 200 / 200 Oral Supplement 1200 / 1200 Output: Urine 3200 / 3200 Other: # Voids 5 Date of Last Bowel Movement 03/17/18 03/17/18 03/17/18 GENERAL: Elderly WM, NAD SKIN: Warm and dry. HEAD: Normocephalic. EYES: No scleral icterus. No injection or drainage. NECK: Supple, trachea midline. No JVD or lymphadenopathy. CARDIOVASCULAR: Regular rate and rhythm without murmurs, gallops, or rubs. RESPIRATORY: Breath sounds equal bilaterally. No accessory muscle use. GASTROINTESTINAL: Abdomen soft, non-tender, nondistended. MUSCULOSKELETAL: No cyanosis, or edema. BACK: Nontender without obvious deformity. No CVA tenderness. - Urinary Catheter Management Indwelling Urethral Catheter Cath placed during this visit: yes, but has since been removed by the nurse Reason for continuing: Chronic Urinary Retention Insertion date: 02/26/18 Insertion time: 16:00 Removal date: 02/26/18 Removal time: 15:30 Assessment and Plan - Plan IMPRESSION: Resp Failure--improved renal Failure HTN ?MIRTA PLAN: Supplement 02 with NC CPAP at night and prn Aerosol nebs Lasix drip Monitor Lytes Procedures - Arterial Line Size (Gauge): 20
--- NOTE | 2018-03-18 18:05 | P.PNIM ---
Subjective Interval history: Patient without any sob at rest. No complaints for now. Physical Exam Vital signs: Vital Signs 03/17/18 19:50 03/17/18 20:00 03/17/18 21:43 Temperature 97.7 F Pulse Rate 70 Respiratory Rate 17 Blood Pressure 131/52 L Pulse Oximetry 97 96 96 03/17/18 21:45 03/18/18 00:00 03/18/18 01:00 Temperature 97.0 F L Pulse Rate 56 L Respiratory Rate 18 Blood Pressure 109/51 L Pulse Oximetry 96 95 96 03/18/18 03:30 03/18/18 08:00 03/18/18 11:00 Temperature 97.2 F L 97.1 F L Pulse Rate 75 68 Respiratory Rate 16 16 Blood Pressure 119/64 176/77 H Pulse Oximetry 95 95 96 03/18/18 11:55 03/18/18 15:55 Temperature 97.4 F L Pulse Rate 78 Respiratory Rate 16 Blood Pressure 142/59 H Pulse Oximetry 96 95 Intake & Output 03/17/18 03/18/18 03/18/18 18:59 06:59 18:59 Intake Total 1200 / 1200 200 / 200 Output Total 3200 / 3200 Balance 1200 / 1200 -3000 / -3000 Weight 145.7 kg Intake: Oral 200 / 200 Oral Supplement 1200 / 1200 Output: Urine 3200 / 3200 Other: # Voids 5 Date of Last Bowel Movement 03/17/18 03/17/18 03/17/18 Narrative: General patient on supplemental oxygen, no acute distress HEENT extraocular movements are intact, clear oropharyngeal mucosa, no JVD Cardiovascular S1-S2 audible Respiratory bibasilar crackles Abdomen soft, obese, nontender, nondistended, normal bowel sounds Extremities 1+ pitting edema bilateral lower extremities up to the shins. Neuro patient can move all 4 extremities however appears to be weak in all of his extremities lower worse than upper, sensation is intact bilaterally. - Urinary Catheter Management Indwelling Urethral Catheter Cath placed during this visit: yes, but has since been removed by the nurse Reason for continuing: Chronic Urinary Retention Insertion date: 02/26/18 Insertion time: 16:00 Removal date: 02/26/18 Removal time: 15:30 Results - Labs CBC & Chem 7: 03/16/18 04:30 03/18/18 07:32 Laboratory Results - last 24 hr 03/18/18 03/18/18 07:32 07:32 PT 24.3 H INR 2.4 Sodium 136 Potassium 4.2 Chloride 94 L Carbon Dioxide 33.6 H Anion Gap 8 BUN 27 H Creatinine 3.28 H Estimated GFR 19 L Random Glucose 127 H Calcium 8.3 L Magnesium 2.2 Assessment and Plan - Assessment (1) Acute renal failure Code(s): N17.9 - Acute kidney failure, unspecified Status: Acute (2) Chronic kidney disease Code(s): N18.9 - Chronic kidney disease, unspecified Status: Acute (3) Shock Code(s): R57.9 - Shock, unspecified Status: Acute (4) BMI 50.0-59.9, adult Code(s): Z68.43 - Body mass index (BMI) 50-59.9, adult Status: Chronic (5) Diabetes mellitus Code(s): E11.9 - Type 2 diabetes mellitus without complications Status: Chronic - Plan This patient is a 72-year-old male with a diagnosis of morbid obesity , depression, dementia, coronary artery disease, hypertension, dyslipidemia, diabetes, atrial fibrillation, hypothyroidism, peripheral neuropathy, chronic kidney disease stage IV, patient has a history of chronic opiate use. The patient was initially sent from [facility] where he was found to have altered mental status, low blood pressure and a heart rate in the 30s and was given atropine. Patient also had a low systolic blood pressure and needed IV pressors. Patient was also in acute kidney injury with elevated potassium which was not improving with treatment and needed hemodialysis. Renal Acute kidney injury on chronic kidney disease stage IIIb Serum creatinine is 3.2 as of today. AM labs ordered for tomorrow. He is currently on Lasix iv pushes decreased to BID. Nephrology following the patient, will continue to follow with the recommendations. Neuro/psych Acute metabolic encephalopathy, Resolved. History of TIA Depression Peripheral neuropathy secondary to diabetes Dementia Patient is awake and appears to be oriented to person and place. Continue memantine 5 mg daily for dementia. Continue gabapentin. Psych: The patient for depression, Cymbalta dose was increased. Namenda dose increased. Seroquel added to the patient's medication regimen. Patient's encephalopathy has improved. Patient has history of TIA, continue statin, patient currently on heparin drip which will likely be changed to a anticoagulant given his atrial fibrillation/ flutter. Cardiovascular Atrial flutter/atrial fibrillation Dyslipidemia Coronary artery disease Congestive heart failure with preserved ejection fraction Heart rate under control. Continue amiodarone. BB started by Cardiology. HR under control. Continue coumadin, INR 2.4 today at goal. Pharmacy following and adjusting coumadin. PT/INR ordered for tomorrow a.m., will closely monitor as patient is also on amiodarone. Continue statin on IV lasix pushes, decrease to BID Respiratory Obstructive sleep apnea Right-sided pleural effusion status post thoracentesis Patient no longer requiring bipap throughout the day. Continue BiPAP at night. Patient is status post right-sided thoracentesis. Pulmonary following the patient, will continue to follow with the recommendations. Completed course of IV antibiotics. Patient has been on IV antibiotics since . On supplemental oxygen 4L, will titrate off of oxygen. Plan discussed with nurse at bedside. Pulm Following Endocrine Diabetes Hypothyroidism Continue levothyroxine. Blood sugars have been running between 110-190s. Case and plan discussed with the nurse. No sliding scale for now, blood sugars acceptable. DVT prophylaxis, patient is on coumadin. 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
[2018-03-18] MEDS: QUEtiapine 25 MG Tablet PO SCH (20:51)
--- NOTE | 2018-03-18 21:58 | P.PNNP ---
Subjective Interval history: Patient seen in AM, mild SOB, with nasal cannula. Physical Exam Vital signs: Vital Signs 03/18/18 00:00 03/18/18 01:00 03/18/18 03:30 Temperature 97.0 F L Pulse Rate 56 L Respiratory Rate 18 Blood Pressure 109/51 L Pulse Oximetry 95 96 95 03/18/18 08:00 03/18/18 11:00 03/18/18 11:55 Temperature 97.2 F L 97.1 F L Pulse Rate 75 68 Respiratory Rate 16 16 Blood Pressure 119/64 176/77 H Pulse Oximetry 95 96 96 03/18/18 15:55 03/18/18 20:00 Temperature 97.4 F L 97.4 F L Pulse Rate 78 78 Respiratory Rate 16 22 Blood Pressure 142/59 H 144/82 H Pulse Oximetry 95 93 L Intake & Output 03/18/18 03/18/18 03/19/18 06:59 18:59 06:59 Intake Total 200 / 200 240 / 240 Output Total 3200 / 3200 3000 / 3000 Balance -3000 / -3000 -2760 / -2760 Weight 145.7 kg Intake: Oral 200 / 200 240 / 240 Output: Urine 3200 / 3200 Urine Amount (Catheter) 3000 / 3000 Indwelling Urethral Catheter 3000 / 3000 Other: Date of Last Bowel Movement 03/17/18 03/17/18 Narrative: General patient on supplemental oxygen, no acute distress HEENT extraocular movements are intact, clear oropharyngeal mucosa, no JVD Cardiovascular S1-S2 audible Respiratory bibasilar crackles Abdomen soft, obese, nontender, nondistended, normal bowel sounds Extremities 1+ pitting edema bilateral lower extremities up to the shins. Neuro patient can move all 4 extremities however appears to be weak in all of his extremities lower worse than upper, sensation is intact bilaterally. - Urinary Catheter Management Indwelling Urethral Catheter Cath placed during this visit: yes, but has since been removed by the nurse Reason for continuing: Chronic Urinary Retention Insertion date: 02/26/18 Insertion time: 16:00 Removal date: 02/26/18 Removal time: 15:30 Assessment and Plan - Assessment (1) Acute renal failure Code(s): N17.9 - Acute kidney failure, unspecified Status: Acute (2) Chronic kidney disease Code(s): N18.9 - Chronic kidney disease, unspecified Status: Acute (3) Shock Code(s): R57.9 - Shock, unspecified Status: Acute (4) BMI 50.0-59.9, adult Code(s): Z68.43 - Body mass index (BMI) 50-59.9, adult Status: Chronic (5) Diabetes mellitus Code(s): E11.9 - Type 2 diabetes mellitus without complications Status: Chronic Qualifiers: Diabetes mellitus type: type 2 Diabetes 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 Urine out put is good. Continue diuresis with Lasix/albumin, follow labs. Edema improving No need for dialysis at this point, continue supportive care. Continue Lasix IV. Creatinine is 3.2, and stable for now. Continue same diuretics. Follow the urine out put and BMP. Procedures - Arterial Line Size (Gauge): 20
[2018-03-19] MEDS: Levothyroxine 50 MCG Tablet PO SCH (05:54)
[2018-03-19] MEDS: Amiodarone 200 MG Tablet PO SCH (09:37)
[2018-03-19] MEDS: Metoprolol Tartrate 25 MG Tablet PO SCH ×2 (09:37→21:40)
[2018-03-19] MEDS: Ascorbic Acid 500 MG Tablet PO SCH ×2 (09:37→21:40)
[2018-03-19] MEDS: Potassium Chloride 25 MEQ Effervescent Tablet PO SCH ×2 (09:37→21:41)
[2018-03-19] MEDS: Senna/Docusate Sodium 8.6/50 MG Tablet PO SCH ×2 (09:37→21:40)
[2018-03-19] MEDS: Gabapentin 100 MG Capsule PO SCH ×2 (09:37→21:40)
[2018-03-19] MEDS: Nystatin 100,000 UNITS/GM Powder 15 GM Bottle TOPICAL SCH ×2 (09:38→21:50)
[2018-03-19 12:14] LABS: INR 3.4 Ratio; Prothrombin Time 34.1 sec (9.8-11.6)
--- NOTE | 2018-03-19 12:48 | P.PNNP ---
Subjective Interval history: Patient is alert, mild SOB, not eating well. Physical Exam Vital signs: Vital Signs 03/18/18 15:55 03/18/18 20:00 03/18/18 23:53 Temperature 97.4 F L 97.4 F L Pulse Rate 78 78 Respiratory Rate 16 22 Blood Pressure 142/59 H 144/82 H Pulse Oximetry 95 98 95 03/19/18 00:00 03/19/18 05:08 03/19/18 08:00 Temperature 97.3 F L 97.6 F Pulse Rate 63 79 Respiratory Rate 20 16 Blood Pressure 113/79 162/61 H Pulse Oximetry 94 L 94 L 93 L 03/19/18 10:52 Temperature Pulse Rate Respiratory Rate Blood Pressure Pulse Oximetry 93 L Intake & Output 03/18/18 03/19/18 03/19/18 18:59 06:59 18:59 Intake Total 240 / 240 240 / 240 Output Total 3000 / 3000 1600 / 1600 Balance -2760 / -2760 -1360 / -1360 Weight 145.9 kg Intake: Oral 240 / 240 240 / 240 Output: Urine 1600 / 1600 Urine Amount (Catheter) 3000 / 3000 Indwelling Urethral Catheter 3000 / 3000 Other: Date of Last Bowel Movement 03/17/18 03/17/18 # Bowel Movements 1 Narrative: General patient on supplemental oxygen, no acute distress HEENT extraocular movements are intact, clear oropharyngeal mucosa, no JVD Cardiovascular S1-S2 audible Respiratory bibasilar crackles Abdomen soft, obese, nontender, nondistended, normal bowel sounds Extremities 1+ pitting edema bilateral lower extremities up to the shins. Neuro patient can move all 4 extremities however appears to be weak in all of his extremities lower worse than upper, sensation is intact bilaterally. - Urinary Catheter Management Indwelling Urethral Catheter Cath placed during this visit: yes, but has since been removed by the nurse Reason for continuing: Chronic Urinary Retention Insertion date: 02/26/18 Insertion time: 16:00 Removal date: 02/26/18 Removal time: 15:30 Assessment and Plan - Assessment (1) Acute renal failure Code(s): N17.9 - Acute kidney failure, unspecified Status: Acute (2) Chronic kidney disease Code(s): N18.9 - Chronic kidney disease, unspecified Status: Acute (3) Shock Code(s): R57.9 - Shock, unspecified Status: Acute (4) BMI 50.0-59.9, adult Code(s): Z68.43 - Body mass index (BMI) 50-59.9, adult Status: Chronic (5) Diabetes mellitus Code(s): E11.9 - Type 2 diabetes mellitus without complications Status: Chronic Qualifiers: Diabetes mellitus type: type 2 Diabetes mellitus penitentiary insulin use: with penitentiary use Diabetes mellitus complication status: with kidney complications Diabetes mellitus complication detail: with other kidney complication Qualified Code(s): E11.29 - Type 2 diabetes mellitus with other diabetic kidney complication; Z79.4 - terminal superintendent (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 - Plan Patient with chronic kidney disease and develop PIERRE. Urine out put is good. Continue diuresis with Lasix/albumin, follow labs. Edema improving No need for dialysis at this point, continue supportive care. Continue Lasix 40 mg IV BID. Creatinine is stable at 3.1-3.2, may be his baseline. Continue same diuretics. Follow the urine out put and BMP. Procedures - Arterial Line Size (Gauge): 20
--- NOTE | 2018-03-19 13:55 | P.PNIM ---
Subjective Interval history: Patient laying down in bed. He says he feels weak. No other complaints. Physical Exam Vital signs: Vital Signs 03/18/18 15:55 03/18/18 20:00 03/18/18 23:53 Temperature 97.4 F L 97.4 F L Pulse Rate 78 78 Respiratory Rate 16 22 Blood Pressure 142/59 H 144/82 H Pulse Oximetry 95 98 95 03/19/18 00:00 03/19/18 05:08 03/19/18 08:00 Temperature 97.3 F L 97.6 F Pulse Rate 63 79 Respiratory Rate 20 16 Blood Pressure 113/79 162/61 H Pulse Oximetry 94 L 94 L 93 L 03/19/18 10:52 03/19/18 12:00 Temperature 97.2 F L Pulse Rate 74 Respiratory Rate 16 Blood Pressure 131/59 L Pulse Oximetry 93 L 94 L Intake & Output 03/18/18 03/19/18 03/19/18 18:59 06:59 18:59 Intake Total 240 / 240 240 / 240 Output Total 3000 / 3000 1600 / 1600 Balance -2760 / -2760 -1360 / -1360 Weight 145.9 kg Intake: Oral 240 / 240 240 / 240 Output: Urine 1600 / 1600 Urine Amount (Catheter) 3000 / 3000 Indwelling Urethral Catheter 3000 / 3000 Other: Date of Last Bowel Movement 03/17/18 03/17/18 # Bowel Movements 1 Narrative: General patient on supplemental oxygen, no acute distress. Patient says he feels weak. HEENT extraocular movements are intact, clear oropharyngeal mucosa, no JVD Cardiovascular S1-S2 audible Respiratory bibasilar crackles Abdomen soft, obese, nontender, nondistended, normal bowel sounds Extremities 1+ pitting edema bilateral lower extremities up to the shins. Neuro patient can move all 4 extremities however appears to be weak in all of his extremities lower worse than upper, sensation is intact bilaterally. - Urinary Catheter Management Indwelling Urethral Catheter Cath placed during this visit: yes, but has since been removed by the nurse Reason for continuing: Chronic Urinary Retention Insertion date: 02/26/18 Insertion time: 16:00 Removal date: 02/26/18 Removal time: 15:30 Results - Labs CBC & Chem 7: 03/16/18 04:30 03/18/18 07:32 Laboratory Results - last 24 hr 03/19/18 11:42 PT 34.1 H INR 3.4 Assessment and Plan - Assessment (1) Acute renal failure Code(s): N17.9 - Acute kidney failure, unspecified Status: Acute (2) Chronic kidney disease Code(s): N18.9 - Chronic kidney disease, unspecified Status: Acute (3) Shock Code(s): R57.9 - Shock, unspecified Status: Acute (4) BMI 50.0-59.9, adult Code(s): Z68.43 - Body mass index (BMI) 50-59.9, adult Status: Chronic (5) Diabetes mellitus Code(s): E11.9 - Type 2 diabetes mellitus without complications Status: Chronic - Plan This patient is a 72-year-old male with a diagnosis of morbid obesity , depression, dementia, coronary artery disease, hypertension, dyslipidemia, diabetes, atrial fibrillation, hypothyroidism, peripheral neuropathy, chronic kidney disease stage IV, patient has a history of chronic opiate use. The patient was initially sent from [facility] where he was found to have altered mental status, low blood pressure and a heart rate in the 30s and was given atropine. Patient also had a low systolic blood pressure and needed IV pressors. Patient was also in acute kidney injury with elevated potassium which was not improving with treatment and needed hemodialysis. Renal Acute kidney injury on chronic kidney disease stage IIIb Serum creatinine is 3.2 as of yesterday. As per Nephrology this may be the pts baseline now. AM labs ordered for tomorrow. No need for HD at this point. He is currently on Lasix iv pushes decreased to BID yesterday. Nephrology following the patient, will continue to follow with the recommendations. Neuro/psych Acute metabolic encephalopathy, Resolved. History of TIA Depression Peripheral neuropathy secondary to diabetes Dementia Patient is awake and appears to be oriented to person and place. Continue memantine 5 mg daily for dementia. Continue gabapentin. Psych: The patient for depression, Cymbalta dose was increased. Namenda dose increased. Seroquel added to the patient's medication regimen. Patient's encephalopathy has improved. Patient has history of TIA, continue statin, patient currently on heparin drip which will likely be changed to a anticoagulant given his atrial fibrillation/ flutter. Cardiovascular Atrial flutter/atrial fibrillation Dyslipidemia Coronary artery disease Congestive heart failure with preserved ejection fraction Heart rate under control. Continue amiodarone. BB started by Cardiology. HR under control. Continue coumadin, INR 2.4 today at goal. Pharmacy following and adjusting coumadin. PT/INR ordered for tomorrow a.m., will closely monitor as patient is also on amiodarone. Continue statin on IV lasix pushes, decrease to BID Ins/Outs. Respiratory Obstructive sleep apnea Right-sided pleural effusion status post thoracentesis Patient no longer requiring bipap throughout the day. Continue BiPAP at night. Patient is status post right-sided thoracentesis. Pulmonary following the patient, will continue to follow with the recommendations. Completed course of IV antibiotics. Patient has been on IV antibiotics since . On supplemental oxygen 4L, will again try to titrate off of oxygen. Plan discussed with nurse at bedside. Pulm Following Endocrine Diabetes Hypothyroidism Continue levothyroxine. Blood sugars have been running between 110-190s. Case and plan discussed with the nurse. No sliding scale for now, blood sugars acceptable. DVT prophylaxis, patient is on coumadin. Discharge planning. Discussed with case management. Continue to titrate off of oxygen. Ultimately patient will need rehab at a SNF when ready for discharge. Procedures - Arterial Line Size (Gauge): 20 (5) Diabetes mellitus Qualifiers: Diabetes mellitus type: type 2 Diabetes mellitus manager long term care insulin use: with nursing home use Diabetes mellitus complication status: with kidney complications Diabetes mellitus complication detail: with other kidney complication Qualified Code(s): E11.29 - Type 2 diabetes mellitus with other diabetic kidney complication; Z79.4 - [facility] (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
--- NOTE | 2018-03-19 14:45 | P.PNPL ---
Subjective Interval history: 72 YOWM with RF, renal insuff On Nasal cannula Feels tired at the end of the day No CP No fever Used CPAP last night Physical Exam Vital signs: Vital Signs 03/18/18 15:55 03/18/18 20:00 03/18/18 23:53 Temperature 97.4 F L 97.4 F L Pulse Rate 78 78 Respiratory Rate 16 22 Blood Pressure 142/59 H 144/82 H Pulse Oximetry 95 98 95 03/19/18 00:00 03/19/18 05:08 03/19/18 08:00 Temperature 97.3 F L 97.6 F Pulse Rate 63 79 Respiratory Rate 20 16 Blood Pressure 113/79 162/61 H Pulse Oximetry 94 L 94 L 93 L 03/19/18 10:52 03/19/18 12:00 Temperature 97.2 F L Pulse Rate 74 Respiratory Rate 16 Blood Pressure 131/59 L Pulse Oximetry 93 L 94 L Intake & Output 03/18/18 03/19/18 03/19/18 18:59 06:59 18:59 Intake Total 240 / 240 240 / 240 Output Total 3000 / 3000 1600 / 1600 Balance -2760 / -2760 -1360 / -1360 Weight 145.9 kg Intake: Oral 240 / 240 240 / 240 Output: Urine 1600 / 1600 Urine Amount (Catheter) 3000 / 3000 Indwelling Urethral Catheter 3000 / 3000 Other: Date of Last Bowel Movement 03/17/18 03/17/18 03/17/18 # Bowel Movements 1 GENERAL: WBWn NAD SKIN: Warm and dry. HEAD: Normocephalic. EYES: No scleral icterus. No injection or drainage. NECK: Supple, trachea midline. No JVD or lymphadenopathy. CARDIOVASCULAR: Regular rate and rhythm without murmurs, gallops, or rubs. RESPIRATORY: Breath sounds equal bilaterally. No accessory muscle use. GASTROINTESTINAL: Abdomen soft, non-tender, nondistended. MUSCULOSKELETAL: No cyanosis, or edema. BACK: Nontender without obvious deformity. No CVA tenderness. - Urinary Catheter Management Indwelling Urethral Catheter Cath placed during this visit: yes, but has since been removed by the nurse Reason for continuing: Chronic Urinary Retention Insertion date: 02/26/18 Insertion time: 16:00 Removal date: 02/26/18 Removal time: 15:30 Assessment and Plan - Plan IMPRESSION: Resp Failure--improved renal Failure HTN ?MIRTA PLAN: Supplement 02 with NC CPAP at night Aerosol nebs Lasix drip Monitor Naseem PRYOR RN at Procedures - Arterial Line Size (Gauge): 20
[2018-03-19] MEDS: QUEtiapine 25 MG Tablet PO SCH (21:41)
[2018-03-20] MEDS: Levothyroxine 50 MCG Tablet PO SCH (06:09)
[2018-03-20] MEDS: Gabapentin 100 MG Capsule PO SCH ×2 (08:47→22:39)
[2018-03-20] MEDS: Ascorbic Acid 500 MG Tablet PO SCH ×2 (08:48→22:41)
[2018-03-20] MEDS: Metoprolol Tartrate 25 MG Tablet PO SCH ×2 (08:48→22:39)
[2018-03-20] MEDS: Senna/Docusate Sodium 8.6/50 MG Tablet PO SCH ×2 (08:48→22:40)
[2018-03-20] MEDS: Amiodarone 200 MG Tablet PO SCH (08:48)
[2018-03-20] MEDS: Nystatin 100,000 UNITS/GM Powder 15 GM Bottle TOPICAL SCH ×2 (08:50→22:41)
--- NOTE | 2018-03-20 09:48 | P.PNNP ---
Subjective Interval history: Resting, on Bipap. Reports mild shortness of breath, no nausea or vomiting. <Hue Miller - Last Filed: 03/20/18 09:41> Physical Exam Vital signs: Vital Signs 03/19/18 10:52 03/19/18 12:00 03/19/18 16:00 Temperature 97.2 F L 97.4 F L Pulse Rate 74 76 Respiratory Rate 16 16 Blood Pressure 131/59 L 112/60 Pulse Oximetry 93 L 94 L 95 03/19/18 18:24 03/19/18 20:00 03/19/18 21:34 Temperature 97.5 F L Pulse Rate 80 Respiratory Rate 18 Blood Pressure 134/63 Pulse Oximetry 95 95 94 L 03/20/18 00:00 03/20/18 00:24 03/20/18 08:00 Temperature 97.7 F 97.2 F L Pulse Rate 68 79 Respiratory Rate 17 19 Blood Pressure 147/54 H 131/57 L Pulse Oximetry 96 97 95 Intake & Output 03/19/18 03/20/18 03/20/18 18:59 06:59 18:59 Intake Total 480 / 480 420 / 420 Output Total 1500 / 1500 1800 / 1800 Balance -1020 / -1020 -1380 / -1380 Weight 118.8 kg Intake: Oral 480 / 480 420 / 420 Output: Urine Amount (Catheter) 1500 / 1500 1800 / 1800 Indwelling Urethral Catheter 1500 / 1500 1800 / 1800 Other: # Voids 0 Date of Last Bowel Movement 03/19/18 03/20/18 # Bowel Movements 0 1 Narrative: GENERAL: Alert and oriented. NAD. Weak. SKIN: Warm and dry. NECK: Supple, trachea midline. No JVD CARDIOVASCULAR: Regular rate and rhythm without murmurs, gallops, or rubs. RESPIRATORY: Breath sounds diminished bilaterally. No accessory muscle use. GASTROINTESTINAL: Abdomen soft, non-tender, nondistended. +BS GENITOURINARY: Indwelling Orozco catheter. MUSCULOSKELETAL: No cyanosis, or edema. BACK: Nontender without obvious deformity. No CVA tenderness. - Urinary Catheter Management Indwelling Urethral Catheter Cath placed during this visit: yes, but has since been removed by the nurse Reason for continuing: Chronic Urinary Retention Insertion date: 02/26/18 Insertion time: 16:00 Removal date: 02/26/18 Removal time: 15:30 <Hue Miller - Last Filed: 03/20/18 09:41> Vital signs: Vital Signs 03/19/18 21:34 03/20/18 00:00 03/20/18 00:24 Temperature 97.7 F Pulse Rate 68 Respiratory Rate 17 Blood Pressure 147/54 H Pulse Oximetry 94 L 96 97 03/20/18 08:00 03/20/18 12:00 03/20/18 16:00 Temperature 97.2 F L 97.2 F L 97.3 F L Pulse Rate 79 77 87 Respiratory Rate 19 19 18 Blood Pressure 131/57 L 179/74 H 159/71 H Pulse Oximetry 95 96 96 03/20/18 20:00 Temperature 97.4 F L Pulse Rate 80 Respiratory Rate 18 Blood Pressure 143/68 H Pulse Oximetry 92 L Intake & Output 03/20/18 03/20/18 03/21/18 06:59 18:59 06:59 Intake Total 420 / 420 340 / 340 Output Total 1800 / 1800 1350 / 1350 Balance -1380 / -1380 -1010 / -1010 Weight 118.8 kg Intake: Oral 420 / 420 340 / 340 Output: Urine 1350 / 1350 Urine Amount (Catheter) 1800 / 1800 Indwelling Urethral Catheter 1800 / 1800 Other: # Voids 0 Date of Last Bowel Movement 03/20/18 03/20/18 # Bowel Movements 1 3 - Urinary Catheter Management Indwelling Urethral Catheter Cath placed during this visit: no <Laura Brantley - Last Filed: 03/20/18 20:50> Assessment and Plan - Assessment (1) Acute renal failure Code(s): N17.9 - Acute kidney failure, unspecified Status: Acute (2) Chronic kidney disease Code(s): N18.9 - Chronic kidney disease, unspecified Status: Acute (3) Shock Code(s): R57.9 - Shock, unspecified Status: Acute (4) BMI 50.0-59.9, adult Code(s): Z68.43 - Body mass index (BMI) 50-59.9, adult Status: Chronic (5) Diabetes mellitus Code(s): E11.9 - Type 2 diabetes mellitus without complications Status: Chronic Qualifiers: Diabetes mellitus type: type 2 Diabetes mellitus skilled nursing insulin use: with termite control representative use Diabetes mellitus complication status: with kidney complications Diabetes mellitus complication detail: with other kidney complication Qualified Code(s): E11.29 - Type 2 diabetes mellitus with other diabetic kidney complication; Z79.4 - dedicated intermodal truck driver (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 - Plan Patient with chronic kidney disease and develop PIERRE. Urine out put is good. Continue Lasix 40 mg IV BID and albumin Creatinine has been stable, may be his baseline. Labs pending for today. Avoid nephrotoxins No need for dialysis at this point, continue supportive care. Follow the urine out put and BMP. <Hue Miller - Last Filed: 03/20/18 09:41> - Assessment (1) Acute renal failure Code(s): N17.9 - Acute kidney failure, unspecified Status: Acute (2) Chronic kidney disease Code(s): N18.9 - Chronic kidney disease, unspecified Status: Acute (3) Shock Code(s): R57.9 - Shock, unspecified Status: Acute (4) BMI 50.0-59.9, adult Code(s): Z68.43 - Body mass index (BMI) 50-59.9, adult Status: Chronic (5) Diabetes mellitus Code(s): E11.9 - Type 2 diabetes mellitus without complications Status: Chronic Qualifiers: Diabetes mellitus type: type 2 Diabetes mellitus skilled nursing insulin use: with termite control representative use Diabetes mellitus complication status: with kidney complications Diabetes mellitus complication detail: with other kidney complication Qualified Code(s): E11.29 - Type 2 diabetes mellitus with other diabetic kidney complication; 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 Continue Lasix, Creatinine is now 2.9. <Laura Brantley - Last Filed: 03/20/18 20:50> Procedures - Arterial Line Size (Gauge): 20 <Hue Miller - Last Filed: 03/20/18 09:41>
[2018-03-20] MEDS: Potassium Chloride 25 MEQ Effervescent Tablet PO SCH ×2 (10:08→22:39)
[2018-03-20 10:19] LABS: INR 3.7 Ratio; Prothrombin Time 37.5 sec (9.8-11.6)
[2018-03-20 10:37] LABS: Calcium 8.6 mg/dL (8.5-10.1); Carbon Dioxide 33.5 meq/L (21.0-32.0); Magnesium 1.9 mg/dL (1.5-2.5); Potassium 4.2 meq/L (3.5-5.1)
--- NOTE | 2018-03-20 18:10 | P.PNIM ---
Subjective Interval history: Follow-up visit for acute metabolic encephalopathy, altered mental status, A. fib, and pleural effusion status post thoracentesis. Patient seen and examined laying in bed, awake alert and oriented x3, denies any pain, chest pain or shortness of breath. Patient denies any headache or dizziness, denies any abdominal pain, nausea, vomiting, diarrhea or constipation. Patient denies any fever or chills. Nurse reports no acute concerns overnight Physical Exam Vital signs: Last Vital Signs Temp 97.3 F L 03/20/18 16:00 Pulse 87 03/20/18 16:00 Resp 18 03/20/18 16:00 BP 159/71 H 03/20/18 16:00 Pulse Ox 96 03/20/18 16:00 Intake & Output 03/18/18 03/19/18 03/20/18 03/21/18 06:59 06:59 06:59 06:59 Intake Total 1400 / 1400 480 / 480 900 / 900 Output Total 3200 / 3200 4600 / 4600 3300 / 3300 Balance -1800 / -1800 -4120 / -4120 -2400 / -2400 Weight 145.7 kg 145.9 kg 118.8 kg Narrative: GENERAL: Well-developed, well-nourished, obese male laying in bed, in no apparent distress SKIN: Warm and dry. HEAD: Atraumatic. Normocephalic. EYES: Pupils equal and round. No scleral icterus. No injection or drainage. ENT: No nasal bleeding or discharge. Mucous membranes pink and moist. NECK: Trachea midline. No JVD. CARDIOVASCULAR: Regular rate and rhythm. RESPIRATORY: No accessory muscle use. Bilateral crackles on bilateral lower lobes on auscultation. Breath sounds equal bilaterally. GASTROINTESTINAL: Abdomen obese soft, non-tender, nondistended. Hepatic and splenic margins not palpable. : Orozco catheter in place draining dark yellow colored urine MUSCULOSKELETAL: Extremities without clubbing, cyanosis, or edema. No obvious deformities. NEUROLOGICAL: Awake and alert. No obvious cranial nerve deficits. Motor grossly within normal limits. Generalized weakness moving all 4 extremities with some weakness. normal speech. PSYCHIATRIC: Flat mood and affect; insight and judgment normal. Urinary Catheter Management Indwelling Urethral Catheter: Cath placed during this visit: yes, but has since been removed by the nurse Insertion date: 02/26/18 Insertion time: 16:00 Removal date: 02/26/18 Removal time: 15:30 Results Labs CBC & Chem 7: 03/16/18 04:30 03/20/18 09:49 Assessment and Plan (1) CHF (congestive heart failure): Code(s): I50.9 - Heart failure, unspecified Status: Acute (2) Atrial flutter: Code(s): I48.92 - Unspecified atrial flutter Status: Acute (3) Obstructive sleep apnea: Code(s): G47.33 - Obstructive sleep apnea (adult) (pediatric) Status: Chronic (4) BMI 50.0-59.9, adult: Code(s): Z68.43 - Body mass index (BMI) 50-59.9, adult Status: Chronic (5) Coronary artery disease: Code(s): I25.10 - Atherosclerotic heart disease of [place] coronary artery without angina pectoris Status: Chronic (6) Diabetes mellitus: Code(s): E11.9 - Type 2 diabetes mellitus without complications Status: Chronic (7) History of essential hypertension: Code(s): Z86.79 - Personal history of other diseases of the circulatory system Status: Chronic (8) Hyperlipidemia: Code(s): E78.5 - Hyperlipidemia, unspecified Status: Chronic (9) Chronic kidney disease: Code(s): N18.9 - Chronic kidney disease, unspecified Status: Acute (10) Depression: Code(s): F32.9 - Major depressive disorder, single episode, unspecified Status: Chronic Plan This patient is a 72-year-old male with a diagnosis of morbid obesity , depression, dementia, coronary artery disease, hypertension, dyslipidemia, diabetes, atrial fibrillation, hypothyroidism, peripheral neuropathy, chronic kidney disease stage IV, patient has a history of chronic opiate use. The patient was initially sent [facility] where he was found to have altered mental status, low blood pressure and a heart rate in the 30s and was given atropine. Patient also had a low systolic blood pressure and needed IV pressors. Patient was also in acute kidney injury with elevated potassium which was not improving with treatment and needed hemodialysis. Acute kidney injury on chronic kidney disease stage IIIb -Serum creatinine is 2.96. As per Nephrology this may be the pts baseline now. -No need for HD at this point. -He is currently on Lasix iv pushes decreased to BID -Nephrology following the patient, will continue to follow with the recommendations. Acute metabolic encephalopathy, Resolved. -History of TIA Depression -Peripheral neuropathy secondary to diabetes -Dementia -Patient is awake and appears to be oriented to person and place. -Continue memantine 5 mg daily for dementia. -Continue gabapentin. depression - Cymbalta dose was increased. Namenda dose increased. Seroquel added to the patient's medication regimen. -Patient's encephalopathy has improved. History of TIA - continue statin - patient currently on heparin drip which will likely be changed to a anticoagulant given his atrial fibrillation/flutter. Atrial flutter/atrial fibrillation -Dyslipidemia -Coronary artery disease -Congestive heart failure with preserved ejection fraction -Heart rate under control. Continue amiodarone. -BB started by Cardiology. HR under control. -Continue coumadin, INR 2.4 today at goal. -Pharmacy following and adjusting coumadin. -PT/INR ordered for tomorrow a.m., will closely monitor as patient is also on amiodarone. -Continue statin -on IV lasix pushes, decrease to BID Obstructive sleep apnea Right-sided pleural effusion status post thoracentesis -Patient no longer requiring bipap throughout the day. Continue BiPAP at night. -Patient is status post right-sided thoracentesis. -Pulmonary following the patient, will continue to follow with the recommendations. -Completed course of IV antibiotics. Patient has been on IV antibiotics since 02/26/2018. -On supplemental oxygen 4L, will again try to titrate off of oxygen. Plan discussed with nurse at bedside. -Pulmonology Following Diabetes Hypothyroidism -Continue levothyroxine. -Blood sugars have been running between 110-190s. -No sliding scale for now, blood sugars controlled DVT prophylaxis, patient is on coumadin. Code Status: full code Discussed Condition With: patient and nurse Discharge Planning: Plan for rehab placement senior branch manager to assist with placement Progress Note: Quality VTE Deep Vein Thrombosis/Pulmonary Embolism Present on Admission: No Procedures Arterial Line Size (Gauge): 20 _ (1) CHF (congestive heart failure) Qualifiers: Heart failure type: Heart failure chronicity: (2) Atrial flutter Qualifiers: Atrial flutter type: (3) Coronary artery disease Qualifiers: Coronary Disease-Associated Artery/Lesion type: unspecified vessel or lesion type [place] vs. transplanted heart: [place] heart Associated angina: without angina Qualified Code(s): I25.10 - Atherosclerotic heart disease of [place] coronary artery without angina pectoris (4) Diabetes mellitus Qualifiers: Diabetes mellitus type: type 2 Diabetes mellitus system development engineer insulin use: with penitentiary use Diabetes mellitus complication status: with kidney complications Diabetes mellitus complication detail: with other kidney complication Diabetic retinopathy severity: Proliferative retinopathy type: Diabetes mellitus macular edema: Laterality: Chronic kidney disease stage: Qualified Code(s): E11.29 - Type 2 diabetes mellitus with other diabetic kidney complication; Z79.4 - skilled nursing (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 (5) Hyperlipidemia Qualifiers: Hyperlipidemia type: unspecified Qualified Code(s): E78.5 - Hyperlipidemia, unspecified (6) Chronic kidney disease Qualifiers: Chronic kidney disease stage: (7) Depression Qualifiers: Depression Type: major depressive disorder Major depression recurrence: recurrent Active/Remission status: remission status unspecified Major depression episode severity: Psychotic features: Trimester: Qualified Code (s): F33.9 - Major depressive disorder, recurrent, unspecified
--- NOTE | 2018-03-20 18:26 | P.PNPL ---
Subjective Interval history: 72 YOWM with RF, renal insuff On Nasal cannula Feels tired at the end of the day No CP No fever No new complaint Physical Exam Vital signs: Vital Signs 03/19/18 20:00 03/19/18 21:34 03/20/18 00:00 Temperature 97.5 F L 97.7 F Pulse Rate 80 68 Respiratory Rate 18 17 Blood Pressure 134/63 147/54 H Pulse Oximetry 95 94 L 96 03/20/18 00:24 03/20/18 08:00 03/20/18 12:00 Temperature 97.2 F L 97.2 F L Pulse Rate 79 77 Respiratory Rate 19 19 Blood Pressure 131/57 L 179/74 H Pulse Oximetry 97 95 96 03/20/18 16:00 Temperature 97.3 F L Pulse Rate 87 Respiratory Rate 18 Blood Pressure 159/71 H Pulse Oximetry 96 Intake & Output 03/19/18 03/20/18 03/20/18 18:59 06:59 18:59 Intake Total 480 / 480 420 / 420 340 / 340 Output Total 1500 / 1500 1800 / 1800 1350 / 1350 Balance -1020 / -1020 -1380 / -1380 -1010 / -1010 Weight 118.8 kg Intake: Oral 480 / 480 420 / 420 340 / 340 Output: Urine 1350 / 1350 Urine Amount (Catheter) 1500 / 1500 1800 / 1800 Indwelling Urethral Catheter 1500 / 1500 1800 / 1800 Other: # Voids 0 Date of Last Bowel Movement 03/19/18 03/20/18 03/20/18 # Bowel Movements 0 1 3 GENERAL: WBWn NAD SKIN: Warm and dry. HEAD: Normocephalic. EYES: No scleral icterus. No injection or drainage. NECK: Supple, trachea midline. No JVD or lymphadenopathy. CARDIOVASCULAR: Regular rate and rhythm without murmurs, gallops, or rubs. RESPIRATORY: Breath sounds equal bilaterally. No accessory muscle use. GASTROINTESTINAL: Abdomen soft, non-tender, nondistended. MUSCULOSKELETAL: No cyanosis, or edema. BACK: Nontender without obvious deformity. No CVA tenderness. - Urinary Catheter Management Indwelling Urethral Catheter Cath placed during this visit: yes, but has since been removed by the nurse Reason for continuing: Chronic Urinary Retention Insertion date: 02/26/18 Insertion time: 16:00 Removal date: 02/26/18 Removal time: 15:30 Assessment and Plan - Plan IMPRESSION: Resp Failure--improved renal Failure HTN ?MIRTA PLAN: Supplement 02 with NC CPAP at night Aerosol nebs Lasix drip Monitor Naseem PRYOR RN at Procedures - Arterial Line Size (Gauge): 20
[2018-03-20] MEDS: QUEtiapine 25 MG Tablet PO SCH (22:38)
[2018-03-21] MEDS: Levothyroxine 50 MCG Tablet PO SCH (05:58)
[2018-03-21 08:58] LABS: INR 3.1 Ratio; Prothrombin Time 31.4 sec (9.8-11.6)
[2018-03-21 09:00] LABS: Baso # (Auto) 0.1 th/mm3 (0.0-0.2); Baso % (Auto) 0.9 % (0.0-2.0); Eos # (Auto) 0.3 th/mm3 (0.0-0.4); Eos % (Auto) 3.3 % (0.0-4.0); Hematocrit 27.4 % (39.0-51.0); Hemoglobin 9.5 gm/dL (13.0-17.0); Lymph # (Auto) 0.8 th/mm3 (1.0-4.8); Lymph % (Auto) 9.7 % (9.0-44.0); Mean Corpuscular HGB Conc 34.6 % (32.0-36.0); Mean Corpuscular Hemoglobin 29.4 pg (27.0-34.0); Mean Corpuscular Volume 84.9 fL (80.0-100.0); Mean Platelet Volume 8.3 fL (7.0-11.0); Mono # (Auto) 0.7 th/mm3 (0.0-0.9); Mono % (Auto) 9.4 % (0.0-8.0); Neut # (Auto) 6.1 th/mm3 (1.8-7.7); Neut % (Auto) 76.7 % (16.0-70.0); Platelet Count 215 th/mm3 (150-450); Red Blood Count 3.22 mil/mm3 (4.50-5.90); Red Cell Distribution Width 14.9 % (11.6-17.2)
[2018-03-21 09:14] LABS: Calcium 8.7 mg/dL (8.5-10.1); Carbon Dioxide 33.6 meq/L (21.0-32.0)
[2018-03-21] MEDS: Ascorbic Acid 500 MG Tablet PO SCH ×2 (09:21→22:38)
[2018-03-21] MEDS: Gabapentin 100 MG Capsule PO SCH ×2 (09:22→22:38)
[2018-03-21] MEDS: Amiodarone 200 MG Tablet PO SCH (09:22)
[2018-03-21] MEDS: Metoprolol Tartrate 25 MG Tablet PO SCH ×2 (09:22→22:38)
[2018-03-21] MEDS: Potassium Chloride 25 MEQ Effervescent Tablet PO SCH ×2 (09:22→22:38)
[2018-03-21] MEDS: Senna/Docusate Sodium 8.6/50 MG Tablet PO SCH ×2 (09:22→22:38)
[2018-03-21] MEDS: Nystatin 100,000 UNITS/GM Powder 15 GM Bottle TOPICAL SCH ×2 (09:30→22:51)
--- NOTE | 2018-03-21 12:30 | P.PNPL ---
Subjective Interval history: 72 YOWM with RF, renal insuff On Nasal cannula Feels tired at the end of the day No CP No fever Used CPAP last night Physical Exam Vital signs: Vital Signs 03/20/18 16:00 03/20/18 20:00 03/21/18 00:00 Temperature 97.3 F L 97.4 F L 97.2 F L Pulse Rate 87 80 75 Respiratory Rate 18 18 16 Blood Pressure 159/71 H 143/68 H 129/52 L Pulse Oximetry 96 97 88 L 03/21/18 08:00 Temperature 97.2 F L Pulse Rate 78 Respiratory Rate 18 Blood Pressure 147/63 H Pulse Oximetry 100 Intake & Output 03/20/18 03/21/18 03/21/18 18:59 06:59 18:59 Intake Total 340 / 340 1000 / 1000 Output Total 1350 / 1350 1200 / 1200 Balance -1010 / -1010 -200 / -200 Weight 118.8 kg Intake: Oral 340 / 340 1000 / 1000 Output: Urine 1350 / 1350 Urine Amount (Catheter) 1200 / 1200 Indwelling Urethral Catheter 1200 / 1200 Other: Date of Last Bowel Movement 03/20/18 03/20/18 # Bowel Movements 3 GENERAL: WBWn WM, NAD SKIN: Warm and dry. HEAD: Normocephalic. EYES: No scleral icterus. No injection or drainage. NECK: Supple, trachea midline. No JVD or lymphadenopathy. CARDIOVASCULAR: Regular rate and rhythm without murmurs, gallops, or rubs. RESPIRATORY: Breath sounds equal bilaterally. No accessory muscle use. GASTROINTESTINAL: Abdomen soft, non-tender, nondistended. MUSCULOSKELETAL: No cyanosis, or edema. BACK: Nontender without obvious deformity. No CVA tenderness. - Urinary Catheter Management Indwelling Urethral Catheter Cath placed during this visit: yes, but has since been removed by the nurse Reason for continuing: Chronic Urinary Retention Insertion date: 02/26/18 Insertion time: 16:00 Removal date: 02/26/18 Removal time: 15:30 Assessment and Plan - Plan IMPRESSION: Resp Failure--improved renal Failure HTN ?MIRTA PLAN: Supplement 02 with NC CPAP at night Aerosol nebs Lasix drip Monitor Naseem PRYOR RN at Procedures - Arterial Line Size (Gauge): 20
--- NOTE | 2018-03-21 17:41 | P.PN ---
Subjective Interval history: Follow-up visit for acute metabolic encephalopathy, altered mental status, A. fib, and pleural effusion status post thoracentesis. Patient seen and examined, on BiPAP, placed on oxygen at 4 L. No shortness of breath at this time, no chest pain. Indicates he slept fairly well. No acute changes overnight. Making urine. Physical Exam Vital signs: Vital Signs 03/20/18 20:00 03/21/18 00:00 03/21/18 08:00 Temperature 97.4 F L 97.2 F L 97.2 F L Pulse Rate 80 75 78 Respiratory Rate 18 16 18 Blood Pressure 143/68 H 129/52 L 147/63 H Pulse Oximetry 97 88 L 100 03/21/18 12:00 03/21/18 15:28 Temperature 98.2 F 97.4 F L Pulse Rate 77 81 Respiratory Rate 18 17 Blood Pressure 147/69 H 177/68 H Pulse Oximetry 96 95 Intake & Output 03/20/18 03/21/18 03/21/18 18:59 06:59 18:59 Intake Total 340 / 340 1000 / 1000 Output Total 1350 / 1350 1200 / 1200 Balance -1010 / -1010 -200 / -200 Weight 118.8 kg Intake: Oral 340 / 340 1000 / 1000 Output: Urine 1350 / 1350 Urine Amount (Catheter) 1200 / 1200 Indwelling Urethral Catheter 1200 / 1200 Other: Date of Last Bowel Movement 03/20/18 03/20/18 # Bowel Movements 3 Narrative: GENERAL: Elderly 73-year-old male, appears weak, chronically ill-appearing SKIN: Warm and dry. Pale. HEAD: Atraumatic. Normocephalic. EYES: Pupils equal and round. No scleral icterus. No injection or drainage. ENT: No nasal bleeding or discharge. Mucous membranes pink and moist. NECK: Trachea midline. No JVD. CARDIOVASCULAR: Regular rate and rhythm. RESPIRATORY: No accessory muscle use. Bibasilar rales. Diminished at bases. GASTROINTESTINAL: Abdomen obese soft, non-tender, nondistended. Hepatic and splenic margins not palpable. : Orozco catheter in place draining dark yellow colored urine MUSCULOSKELETAL: Extremities without clubbing, cyanosis, or edema. No obvious deformities. NEUROLOGICAL: awakes to voice, alert and oriented x2. Follows commands, speech is clear. Bilateral upper extremities 3-4 out of 5, bilateral lower extremities weak 2-3 out of 5. PSYCHIATRIC: Flat mood and affect; insight and judgment normal. - Urinary Catheter Management Indwelling Urethral Catheter Cath placed during this visit: yes, but has since been removed by the nurse Reason for continuing: Other continuation reason Insertion date: 02/26/18 Insertion time: 16:00 Removal date: 02/26/18 Removal time: 15:30 Results - Labs CBC & Chem 7: 03/21/18 08:05 03/21/18 08:05 Laboratory Results - last 24 hr 03/21/18 03/21/18 03/21/18 08:05 08:05 08:05 WBC 8.0 RBC 3.22 L Hgb 9.5 L Hct 27.4 L MCV 84.9 MCH 29.4 MCHC 34.6 RDW 14.9 Plt Count 215 MPV 8.3 Neut % (Auto) 76.7 H Lymph % (Auto) 9.7 [place] % (Auto) 9.4 H Eos % (Auto) 3.3 Baso % (Auto) 0.9 Neut # (Auto) 6.1 Lymph # (Auto) 0.8 L [place] # (Auto) 0.7 Eos # (Auto) 0.3 Baso # (Auto) 0.1 WBC Differential . Differential Comment Auto diff final PT 31.4 H INR 3.1 Sodium 135 L Potassium 4.0 Chloride 90 L Carbon Dioxide 33.6 H Anion Gap 11 BUN 28 H Creatinine 2.90 H Estimated GFR 22 L Random Glucose 91 Calcium 8.7 Assessment and Plan - Assessment (1) CHF (congestive heart failure) Code(s): I50.9 - Heart failure, unspecified Status: Acute (2) Atrial flutter Code(s): I48.92 - Unspecified atrial flutter Status: Acute (3) Obstructive sleep apnea Code(s): G47.33 - Obstructive sleep apnea (adult) (pediatric) Status: Chronic (4) BMI 50.0-59.9, adult Code(s): Z68.43 - Body mass index (BMI) 50-59.9, adult Status: Chronic (5) Coronary artery disease Code(s): I25.10 - Atherosclerotic heart disease of [place] coronary artery without angina pectoris Status: Chronic (6) Diabetes mellitus Code(s): E11.9 - Type 2 diabetes mellitus without complications Status: Chronic (7) History of essential hypertension Code(s): Z86.79 - Personal history of other diseases of the circulatory system Status: Chronic (8) Hyperlipidemia Code(s): E78.5 - Hyperlipidemia, unspecified Status: Chronic (9) Chronic kidney disease Code(s): N18.9 - Chronic kidney disease, unspecified Status: Acute (10) Depression Code(s): F32.9 - Major depressive disorder, single episode, unspecified Status : Chronic - Plan This patient is a 72-year-old male with a diagnosis of morbid obesity , depression, dementia, coronary artery disease, hypertension, dyslipidemia, diabetes, atrial fibrillation, hypothyroidism, peripheral neuropathy, chronic kidney disease stage IV, patient has a history of chronic opiate use. The patient was initially sent from [facility] and rehab facility where he was found to have altered mental status, low blood pressure and a heart rate in the 30s and was given atropine. Patient also had a low systolic blood pressure and needed IV pressors. Patient was also in acute kidney injury with elevated potassium which was not improving with treatment and needed hemodialysis. Acute kidney injury on chronic kidney disease stage IIIb -Neurology following, patient appears to be at baseline. No need for hemodialysis. -No need for HD at this point. Creatinine 2.9 -Continue with Lasix 40 mg IV twice daily and Albumin -Monitor electrolytes Monitor intake and output Acute metabolic encephalopathy, Resolved. History of TIA Depression -resolving, neuro intact Peripheral neuropathy -continue gabapentin Dementia -Continue memantine 5 mg daily Depression - Cymbalta dose was increased. Namenda dose increased. Seroquel added to the patient's medication regimen. History of TIA - continue statin - continue Coumadin Atrial flutter/atrial fibrillation/CAD CHF with preserved EF -On Coumadin, pharmacy managing, INR 3.1 -Continue amiodarone, Lopressor -Cardiology following -Continue Lasix Obstructive sleep apnea Right-sided pleural effusion status post thoracentesis -Patient no longer requiring bipap throughout the day. Continue BiPAP at night. -Patient is status post right-sided thoracentesis. -Completed course of IV antibiotics. Patient has been on IV antibiotics since 02/26/2018. -On supplemental oxygen 4L, will again try to titrate off of oxygen. -Pulmonology Following Hypothyroidism -Continue levothyroxine. Diabetes -Blood sugars have been running between 110-190s. -No sliding scale for now, blood sugars controlled DVT prophylaxis, patient is on coumadin. Continue PT/OT Repeat labs in the morning Hopefully discharge to SNF 1-2 days when cleared by nephrology and pulm Code Status: Full code Discussed Condition With: RN, pt, CM Discharge Planning: To [facility] and rehab in 1-2 days per Procedures - Arterial Line Size (Gauge): 20 (5) Coronary artery disease Qualifiers: Coronary Disease-Associated Artery/Lesion type: unspecified vessel or lesion type [place] vs. transplanted heart: [place] heart Associated angina: without angina Qualified Code(s): I25.10 - Atherosclerotic heart disease of [place] coronary artery without angina pectoris (6) Diabetes mellitus Qualifiers: Diabetes mellitus type: type 2 Diabetes mellitus manager terminal insulin use: with manager terminal use Diabetes mellitus complication status: with kidney complications Diabetes mellitus complication detail: with other kidney complication Qualified Code(s): E11.29 - Type 2 diabetes mellitus with other diabetic kidney complication; Z79.4 - sn[facility] (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 (8) Hyperlipidemia Qualifiers: Hyperlipidemia type: unspecified Qualified Code(s): E78.5 - Hyperlipidemia, unspecified (10) Depression Qualifiers: Depression Type: major depressive disorder Major depression recurrence: recurrent Active/Remission status: remission status unspecified Qualified Code (s): F33.9 - Major depressive disorder, recurrent, unspecified
--- NOTE | 2018-03-21 18:53 | P.PNNP ---
Subjective Interval history: Patient seen in the afternoon, alert, mild SOB, with nasal cannula. Physical Exam Vital signs: Vital Signs 03/20/18 20:00 03/21/18 00:00 03/21/18 08:00 Temperature 97.4 F L 97.2 F L 97.2 F L Pulse Rate 80 75 78 Respiratory Rate 18 16 18 Blood Pressure 143/68 H 129/52 L 147/63 H Pulse Oximetry 97 88 L 100 03/21/18 12:00 03/21/18 15:28 Temperature 98.2 F 97.4 F L Pulse Rate 77 81 Respiratory Rate 18 17 Blood Pressure 147/69 H 177/68 H Pulse Oximetry 96 95 Intake & Output 03/20/18 03/21/18 03/21/18 18:59 06:59 18:59 Intake Total 340 / 340 1000 / 1000 600 / 600 Output Total 1350 / 1350 1200 / 1200 1800 / 1800 Balance -1010 / -1010 -200 / -200 -1200 / -1200 Weight 118.8 kg Intake: Oral 340 / 340 1000 / 1000 600 / 600 Output: Urine 1350 / 1350 Urine Amount (Catheter) 1200 / 1200 1800 / 1800 Indwelling Urethral Catheter 1200 / 1200 1800 / 1800 Other: Date of Last Bowel Movement 03/20/18 03/20/18 # Bowel Movements 3 0 Narrative: GENERAL: Elderly 73-year-old male, appears weak, chronically ill-appearing SKIN: Warm and dry. Pale. HEAD: Atraumatic. Normocephalic. EYES: Pupils equal and round. No scleral icterus. No injection or drainage. ENT: No nasal bleeding or discharge. Mucous membranes pink and moist. NECK: Trachea midline. No JVD. CARDIOVASCULAR: Regular rate and rhythm. RESPIRATORY: No accessory muscle use. Bibasilar rales. Diminished at bases. GASTROINTESTINAL: Abdomen obese soft, non-tender, nondistended. Hepatic and splenic margins not palpable. : Orozco catheter in place draining dark yellow colored urine MUSCULOSKELETAL: Extremities without clubbing, cyanosis, or edema. No obvious deformities. NEUROLOGICAL: awakes to voice, alert and oriented x2. Follows commands, speech is clear. Bilateral upper extremities 3-4 out of 5, bilateral lower extremities weak 2-3 out of 5. PSYCHIATRIC: Flat mood and affect; insight and judgment normal. - Urinary Catheter Management Indwelling Urethral Catheter Cath placed during this visit: yes, but has since been removed by the nurse Reason for continuing: Other continuation reason Insertion date: 02/26/18 Insertion time: 16:00 Removal date: 02/26/18 Removal time: 15:30 Assessment and Plan - Assessment (1) Acute renal failure Code(s): N17.9 - Acute kidney failure, unspecified Status: Acute (2) Chronic kidney disease Code(s): N18.9 - Chronic kidney disease, unspecified Status: Acute (3) Shock Code(s): R57.9 - Shock, unspecified Status: Acute (4) BMI 50.0-59.9, adult Code(s): Z68.43 - Body mass index (BMI) 50-59.9, adult Status: Chronic (5) Diabetes mellitus Code(s): E11.9 - Type 2 diabetes mellitus without complications Status: Chronic Qualifiers: Diabetes mellitus type: type 2 Diabetes mellitus prison insulin use: with prison use Diabetes mellitus complication status: with kidney complications Diabetes mellitus complication detail: with other kidney complication Qualified Code(s): E11.29 - Type 2 diabetes mellitus with other diabetic kidney complication; Z79.4 - [facility] (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 - Plan Patient with chronic kidney disease and develop PIERRE. Urine out put is good. Continue diuresis with Lasix/albumin, follow labs. Edema improving No need for dialysis at this point, continue supportive care. Continue Lasix 40 mg IV BID. Creatinine is stable and now it is 2.9. Continue same diuretics. Follow the urine out put and BMP. Procedures - Arterial Line Size (Gauge): 20
[2018-03-21] MEDS: QUEtiapine 25 MG Tablet PO SCH (22:38)
[2018-03-22] MEDS: Levothyroxine 50 MCG Tablet PO SCH (05:54)
[2018-03-22 07:47] LABS: INR 2.9 Ratio; Prothrombin Time 29.3 sec (9.8-11.6)
[2018-03-22 07:59] LABS: Calcium 8.5 mg/dL (8.5-10.1); Carbon Dioxide 34.5 meq/L (21.0-32.0); Potassium 3.9 meq/L (3.5-5.1)
[2018-03-22] MEDS: Potassium Chloride 25 MEQ Effervescent Tablet PO SCH ×2 (08:54→22:51)
[2018-03-22] MEDS: Gabapentin 100 MG Capsule PO SCH ×2 (08:58→22:51)
[2018-03-22] MEDS: Ascorbic Acid 500 MG Tablet PO SCH ×2 (08:58→22:50)
[2018-03-22] MEDS: Amiodarone 200 MG Tablet PO SCH (08:58)
[2018-03-22] MEDS: Metoprolol Tartrate 25 MG Tablet PO SCH ×2 (08:58→22:51)
[2018-03-22] MEDS: Senna/Docusate Sodium 8.6/50 MG Tablet PO SCH ×2 (08:59→22:52)
[2018-03-22] MEDS: Nystatin 100,000 UNITS/GM Powder 15 GM Bottle TOPICAL SCH ×2 (09:01→22:52)
--- NOTE | 2018-03-22 11:19 | P.PNNP ---
Subjective Interval history: Resting comfortably. Denies any shortness of breath, chest pain, nausea, or vomiting. Creatinine stable and improving at 2.7 today. Generalized edema improving. <Hue Miller - Last Filed: 03/22/18 11:12> Physical Exam Vital signs: Vital Signs 03/21/18 12:00 03/21/18 15:28 03/21/18 20:00 Temperature 98.2 F 97.4 F L 97.9 F Pulse Rate 77 81 67 Respiratory Rate 18 17 18 Blood Pressure 147/69 H 177/68 H 164/82 H Pulse Oximetry 96 95 96 03/21/18 20:48 03/22/18 00:00 03/22/18 02:54 Temperature 98.0 F Pulse Rate 76 Respiratory Rate 18 18 Blood Pressure 156/61 H Pulse Oximetry 97 95 03/22/18 08:00 Temperature 97.8 F Pulse Rate 78 Respiratory Rate 15 Blood Pressure 147/75 H Pulse Oximetry 96 Intake & Output 03/21/18 03/22/18 03/22/18 18:59 06:59 18:59 Intake Total 600 / 600 220 / 220 Output Total 1800 / 1800 1800 / 1800 Balance -1200 / -1200 -1580 / -1580 Weight 136.3 kg Intake: Oral 600 / 600 220 / 220 Output: Urine 1800 / 1800 Urine Amount (Catheter) 1800 / 1800 Indwelling Urethral Catheter 1800 / 1800 Other: Date of Last Bowel Movement 03/22/18 # Bowel Movements 0 Narrative: GENERAL: Alert and oriented. SKIN: Warm and dry. Pale. NECK: Trachea midline. No JVD. CARDIOVASCULAR: Regular rate and rhythm. RESPIRATORY: No accessory muscle use. Bibasilar rales. Diminished at bases. GASTROINTESTINAL: Abdomen obese soft, non-tender, nondistended. +BS : Oorzco catheter in place draining yellow colored urine MUSCULOSKELETAL: Extremities without clubbing, or cyanosis. No obvious deformities. Some edema noted in flank region. - Urinary Catheter Management Indwelling Urethral Catheter Cath placed during this visit: yes, but has since been removed by the nurse Reason for continuing: Other continuation reason Insertion date: 02/26/18 Insertion time: 16:00 Removal date: 02/26/18 Removal time: 15:30 <Hue Miller - Last Filed: 03/22/18 11:12> Vital signs: Vital Signs 03/21/18 20:48 03/22/18 00:00 03/22/18 02:54 Temperature 98.0 F Pulse Rate 76 Respiratory Rate 18 18 Blood Pressure 156/61 H Pulse Oximetry 97 95 03/22/18 08:00 03/22/18 12:00 03/22/18 16:00 Temperature 97.8 F 97.6 F 97.8 F Pulse Rate 78 81 83 Respiratory Rate 15 16 16 Blood Pressure 147/75 H 105/51 L 129/58 L Pulse Oximetry 96 95 97 03/22/18 18:34 Temperature Pulse Rate Respiratory Rate Blood Pressure Pulse Oximetry 96 Intake & Output 03/22/18 03/22/18 03/23/18 06:59 18:59 06:59 Intake Total 220 / 220 Output Total 1800 / 1800 1450 / 1450 Balance -1580 / -1580 -1450 / -1450 Weight 136.3 kg Intake: Oral 220 / 220 Output: Urine 1800 / 1800 1450 / 1450 Other: Date of Last Bowel Movement 03/22/18 - Urinary Catheter Management Indwelling Urethral Catheter Cath placed during this visit: no <Laura Brantley - Last Filed: 03/22/18 20:32> Assessment and Plan - Assessment (1) Acute renal failure Code(s): N17.9 - Acute kidney failure, unspecified Status: Acute (2) Chronic kidney disease Code(s): N18.9 - Chronic kidney disease, unspecified Status: Acute (3) Shock Code(s): R57.9 - Shock, unspecified Status: Acute (4) BMI 50.0-59.9, adult Code(s): Z68.43 - Body mass index (BMI) 50-59.9, adult Status: Chronic (5) Diabetes mellitus Code(s): E11.9 - Type 2 diabetes mellitus without complications Status: Chronic Qualifiers: Diabetes mellitus type: type 2 Diabetes mellitus skilled nursing insulin use: with skilled nursing use Diabetes mellitus complication status: with kidney complications Diabetes mellitus complication detail: with other kidney complication Qualified Code(s): E11.29 - Type 2 diabetes mellitus with other diabetic kidney complication; Z79.4 - [facility] (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 - Plan Patient with chronic kidney disease and develop PIERRE. Urine out put is good. Continue Lasix 40 mg IV BID and albumin. Edema is improving. Creatinine is stable and now it is 2.7 Avoid nephrotoxins Maintain accurate I+O, has indwelling Orozco catheter. Follow the urine out put and BMP. Labs in AM <Hue Miller - Last Filed: 03/22/18 11:12> - Assessment (1) Acute renal failure Code(s): N17.9 - Acute kidney failure, unspecified Status: Acute (2) Chronic kidney disease Code(s): N18.9 - Chronic kidney disease, unspecified Status: Acute (3) Shock Code(s): R57.9 - Shock, unspecified Status: Acute (4) BMI 50.0-59.9, adult Code(s): Z68.43 - Body mass index (BMI) 50-59.9, adult Status: Chronic (5) Diabetes mellitus Code(s): E11.9 - Type 2 diabetes mellitus without complications Status: Chronic Qualifiers: Diabetes mellitus type: type 2 Diabetes mellitus skilled nursing insulin use: with terminal operator use Diabetes mellitus complication status: with kidney complications Diabetes mellitus complication detail: with other kidney complication Qualified Code(s): E11.29 - Type 2 diabetes mellitus with other diabetic kidney complication; Z79.4 - terminal clerk (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 - Plan Patient seen and examine, agree with above. Creatinine remain stable at 2.7, continue diuretics. <Laura Brantley - Last Filed: 03/22/18 20:32> Procedures - Arterial Line Size (Gauge): 20 <Hue Miller - Last Filed: 03/22/18 11:12>
--- NOTE | 2018-03-22 14:22 | P.DIET ---
Nutritional Evaluation Type of nutrition evaluation: follow-up (TF FU) Nutrition consult regarding: Tube Feeding (TFing d/c'ed) Subjective Subjective Comments: Eating 75%. Objective - Diagnosis multi organ failure, hyperkalemia, AMS - Objective % IBW: 201 (IBW = 178lb) Body Weight Used for Calculations: IBW Energy Needs - Lower Range (kCal/kg): 25 Energy Needs - Upper Range (kCal/kg): 30 Lower Limit kCal/kg (kCals): 2,023 Upper Limit kCal/kg (kCals): 2,427 Lower Limit Protein Factor (Grams per Kg): 1.2 Upper Limit Protein Factor (Grams per Kg): 1.5 Lower Protein Needs (Protein): 97 Upper Protein Needs (Protein): 121 Dietitian Reviewed in Medical Record: Current diet, Curent medications, Intake & Output, Labs, Medical history Diet Order: 1999 ADA, 2 gm Na, Cardiac, mechanical soft with chopped meat Objective Comments: PMH: acute renal failure, clostridium, 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 Wt influenced by fluid changes at this time. Will continue Nepro bid for added nutrition. Recommend d/ c Cardiac diet restriction. Consult RD if needed. Recommendations: Continue current POC.
--- NOTE | 2018-03-22 14:31 | P.PNIM ---
Subjective Interval history: No acute complaints for the patient. Says his respiratory status is improving. Renal function continues to improve. Physical Exam Vital signs: Last Vital Signs Temp 97.6 F 03/22/18 12:00 Pulse 81 03/22/18 12:00 Resp 16 03/22/18 12:00 BP 105/51 L 03/22/18 12:00 Pulse Ox 95 03/22/18 12:00 Intake & Output 03/20/18 03/21/18 03/22/18 03/23/18 06:59 06:59 06:59 06:59 Intake Total 900 / 900 1340 / 1340 820 / 820 Output Total 3300 / 3300 2550 / 2550 3600 / 3600 900 / 900 Balance -2400 / -2400 -1210 / -1210 -2780 / -2780 -900 / -900 Weight 118.8 kg 118.8 kg 136.3 kg Narrative: GENERAL: NAD, A&Ox3 HEAD: Normocephalic. NECK: Supple, trachea midline. No lymphadenopathy. EYES: No scleral icterus. No injection or drainage. CARDIOVASCULAR: Regular rate and rhythm without murmurs, gallops, or rubs. RESPIRATORY: Breath sounds equal bilaterally. No accessory muscle use. GASTROINTESTINAL: Abdomen soft, non-tender, nondistended. MUSCULOSKELETAL: No cyanosis, or edema. Double weakness. Muscle wasting in hands. SKIN: Warm and dry. NEURO: No focal neurological deficits. Urinary Catheter Management Indwelling Urethral Catheter: Cath placed during this visit: yes, but has since been removed by the nurse Insertion date: 02/26/18 Insertion time: 16:00 Removal date: 02/26/18 Removal time: 15:30 Results Labs CBC & Chem 7: 03/21/18 08:05 03/22/18 07:02 Assessment and Plan (1) Acute renal failure: Code(s): N17.9 - Acute kidney failure, unspecified Status: Acute (2) Chronic kidney disease: Code(s): N18.9 - Chronic kidney disease, unspecified Status: Acute (3) Shock: Code(s): R57.9 - Shock, unspecified Status: Acute (4) BMI 50.0-59.9, adult: Code(s): Z68.43 - Body mass index (BMI) 50-59.9, adult Status: Chronic (5) Diabetes mellitus: Code(s): E11.9 - Type 2 diabetes mellitus without complications Status: Chronic Plan 72-year-old male with a diagnosis of morbid obesity, depression, dementia, coronary artery disease, hypertension, dyslipidemia, diabetes, atrial fibrillation, hypothyroidism, peripheral neuropathy, chronic kidney disease stage IV, patient has a history of chronic opiate use. The patient was initially sent from [facility] and rehab facility where he was found to have altered mental status, low blood pressure and a heart rate in the 30s and was given atropine. Patient also had a low systolic blood pressure and needed IV pressors. Patient was also in acute kidney injury with elevated potassium which was not improving with treatment and needed hemodialysis. Acute kidney injury on chronic kidney disease stage IIIb Slow improvement seen No need for dialysis at this point Nephrology following Continue to monitor input and output Continue monitoring renal function Await nephrology clearance prior to discharge Continue Lasix Continue albumin Acute metabolic encephalopathy Resolved History of TIA Continue statin Continue Coumadin Depression Follow clinically Continue Seroquel Continue Cymbalta Peripheral neuropathy Continue gabapentin Dementia Mild at baseline Continue memantine 5 mg daily Atrial flutter/atrial fibrillation/CAD CHF with preserved EF Continue Coumadin Follow INR Continue amiodarone Continue Lopressor Cardiology following Lasix Obstructive sleep apnea Right-sided pleural effusion status post thoracentesis Continue BiPAP at night Respiratory status has stabilized compared to time of admit Patient is status post right-sided thoracentesis Pulmonology following Continue oxygen supplementation as needed Hypothyroidism Continue levothyroxine. Diabetes mellitus type 2 Follow blood sugars Diet controlled Diabetic diet Global weakness Continue PT/OT DVT prophylaxis Coumadin Discharge planning Patient will be discharged after clearance from nephrology and pulmonology is present Progress Note: Quality VTE Deep Vein Thrombosis/Pulmonary Embolism Present on Admission: No Procedures Arterial Line Size (Gauge): 20 _ (1) Diabetes mellitus Qualifiers: Chronic kidney disease stage: Diabetes mellitus complication detail: with other kidney complication Diabetes mellitus complication status: with kidney complications Diabetes mellitus group home insulin use: with group home use Diabetes mellitus macular edema: Diabetes mellitus type: type 2 Diabetic retinopathy severity: Laterality: Proliferative retinopathy type: Qualified Code(s): E11.29 - Type 2 diabetes mellitus with other diabetic kidney complication; Z79.4 - [facility] (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 (2) Acute renal failure Qualifiers: Acute renal failure type: (3) Chronic kidney disease Qualifiers: Chronic kidney disease stage:
--- NOTE | 2018-03-22 20:02 | P.PNPL ---
Subjective Interval history: 72 YOWM with RF, renal insuff On Nasal cannula Feels tired at the end of the day No CP No fever Used CPAP last night Feels better Physical Exam Vital signs: Vital Signs 03/21/18 20:48 03/22/18 00:00 03/22/18 02:54 Temperature 98.0 F Pulse Rate 76 Respiratory Rate 18 18 Blood Pressure 156/61 H Pulse Oximetry 97 95 03/22/18 08:00 03/22/18 12:00 03/22/18 16:00 Temperature 97.8 F 97.6 F 97.8 F Pulse Rate 78 81 83 Respiratory Rate 15 16 16 Blood Pressure 147/75 H 105/51 L 129/58 L Pulse Oximetry 96 95 97 03/22/18 18:34 Temperature Pulse Rate Respiratory Rate Blood Pressure Pulse Oximetry 96 Intake & Output 03/22/18 03/22/18 03/23/18 06:59 18:59 06:59 Intake Total 220 / 220 Output Total 1800 / 1800 1450 / 1450 Balance -1580 / -1580 -1450 / -1450 Weight 136.3 kg Intake: Oral 220 / 220 Output: Urine 1800 / 1800 1450 / 1450 Other: Date of Last Bowel Movement 03/22/18 GENERAL: Obese WM, NAD SKIN: Warm and dry. HEAD: Normocephalic. EYES: No scleral icterus. No injection or drainage. NECK: Supple, trachea midline. No JVD or lymphadenopathy. CARDIOVASCULAR: Regular rate and rhythm without murmurs, gallops, or rubs. RESPIRATORY: Breath sounds equal bilaterally. No accessory muscle use. GASTROINTESTINAL: Abdomen soft, non-tender, nondistended. MUSCULOSKELETAL: No cyanosis, or edema. BACK: Nontender without obvious deformity. No CVA tenderness. - Urinary Catheter Management Indwelling Urethral Catheter Cath placed during this visit: yes, but has since been removed by the nurse Reason for continuing: Other continuation reason Insertion date: 02/26/18 Insertion time: 16:00 Removal date: 02/26/18 Removal time: 15:30 Assessment and Plan - Plan IMPRESSION: Resp Failure--improved renal Failure HTN ?MIRTA PLAN: Supplement 02 with NC CPAP at night Aerosol nebs Lasix drip Monitor Naseem PRYOR RN at [facility] plaqns underway Procedures - Arterial Line Size (Gauge): 20
[2018-03-22] MEDS: QUEtiapine 25 MG Tablet PO SCH (22:51)
[2018-03-23] MEDS: Levothyroxine 50 MCG Tablet PO SCH (06:42)
[2018-03-23 07:28] LABS: INR 2.5 Ratio; Prothrombin Time 25.5 sec (9.8-11.6)
[2018-03-23 07:48] LABS: Albumin 2.4 g/dL (3.4-5.0); Calcium 8.5 mg/dL (8.5-10.1); Carbon Dioxide 35.9 meq/L (21.0-32.0); Potassium 3.9 meq/L (3.5-5.1)
[2018-03-23 07:49] LABS: Phosphorus 3.2 mg/dL (2.5-4.9)
[2018-03-23] MEDS: Ascorbic Acid 500 MG Tablet PO SCH ×2 (08:17→21:07)
[2018-03-23] MEDS: Amiodarone 200 MG Tablet PO SCH (08:17)
[2018-03-23] MEDS: Senna/Docusate Sodium 8.6/50 MG Tablet PO SCH ×2 (08:17→21:07)
[2018-03-23] MEDS: Metoprolol Tartrate 25 MG Tablet PO SCH ×2 (08:17→21:07)
[2018-03-23] MEDS: Gabapentin 100 MG Capsule PO SCH ×2 (08:17→21:15)
[2018-03-23] MEDS: Potassium Chloride 25 MEQ Effervescent Tablet PO SCH ×2 (08:18→21:07)
[2018-03-23] MEDS: Nystatin 100,000 UNITS/GM Powder 15 GM Bottle TOPICAL SCH ×2 (08:18→21:15)
--- NOTE | 2018-03-23 12:06 | P.PNIM ---
Subjective Interval history: Patient says he feels weak today compared to yesterday. Renal function has slightly increased from 2.74 yesterday and is now at 2.98 today. No other new complaints from the patient. Physical Exam Vital signs: Last Vital Signs Temp 98.1 F 03/23/18 08:00 Pulse 78 03/23/18 08:00 Resp 17 03/23/18 08:00 BP 158/66 H 03/23/18 08:00 Pulse Ox 99 03/23/18 08:00 Intake & Output 03/21/18 03/22/18 03/23/18 03/24/18 06:59 06:59 06:59 06:59 Intake Total 1340 / 1340 820 / 820 460 / 460 Output Total 2550 / 2550 3600 / 3600 1675 / 1675 Balance -1210 / -1210 -2780 / -2780 -1215 / -1215 Weight 118.8 kg 136.3 kg 132.1 kg Narrative: GENERAL: NAD, A&Ox3 HEAD: Normocephalic. NECK: Supple, trachea midline. No lymphadenopathy. EYES: No scleral icterus. No injection or drainage. CARDIOVASCULAR: Regular rate and rhythm without murmurs, gallops, or rubs. RESPIRATORY: Breath sounds equal bilaterally. No accessory muscle use. GASTROINTESTINAL: Abdomen soft, non-tender, nondistended. MUSCULOSKELETAL: No cyanosis, or edema. Double weakness. Muscle wasting in hands. SKIN: Warm and dry. NEURO: No focal neurological deficits. Urinary Catheter Management Indwelling Urethral Catheter: Cath placed during this visit: yes, but has since been removed by the nurse Insertion date: 02/26/18 Insertion time: 16:00 Removal date: 02/26/18 Removal time: 15:30 Results Labs CBC & Chem 7: 03/21/18 08:05 03/23/18 06:33 Assessment and Plan (1) Acute renal failure: Code(s): N17.9 - Acute kidney failure, unspecified Status: Acute (2) Chronic kidney disease: Code(s): N18.9 - Chronic kidney disease, unspecified Status: Acute (3) Shock: Code(s): R57.9 - Shock, unspecified Status: Acute (4) BMI 50.0-59.9, adult: Code(s): Z68.43 - Body mass index (BMI) 50-59.9, adult Status: Chronic (5) Diabetes mellitus: Code(s): E11.9 - Type 2 diabetes mellitus without complications Status: Chronic Plan 72-year-old male with a diagnosis of morbid obesity, depression, dementia, coronary artery disease, hypertension, dyslipidemia, diabetes, atrial fibrillation, hypothyroidism, peripheral neuropathy, chronic kidney disease stage IV, patient has a history of chronic opiate use. The patient was initially sent from [facility] rehab facility where he was found to have altered mental status, low blood pressure and a heart rate in the 30s and was given atropine. Patient also had a low systolic blood pressure and needed IV pressors. Patient was also in acute kidney injury with elevated potassium which was not improving with treatment and needed hemodialysis. Continue following renal function. Continue physical therapy and occupational therapy. Patient is being evaluated for possibility of his candidacy for [facility]. Acute kidney injury on chronic kidney disease stage IIIb Slow improvement seen No need for dialysis at this point Nephrology following Continue to monitor input and output Continue monitoring renal function Await nephrology clearance prior to discharge Continue Lasix Continue albumin Acute metabolic encephalopathy Resolved History of TIA Continue statin Continue Coumadin Depression Follow clinically Continue Seroquel Continue Cymbalta Peripheral neuropathy Continue gabapentin Dementia Mild at baseline Continue memantine 5 mg daily Atrial flutter/atrial fibrillation/CAD CHF with preserved EF Continue Coumadin Follow INR Continue amiodarone Continue Lopressor Cardiology following Lasix Obstructive sleep apnea Right-sided pleural effusion status post thoracentesis Continue BiPAP at night Respiratory status has stabilized compared to time of admit Patient is status post right-sided thoracentesis Pulmonology following Continue oxygen supplementation as needed Hypothyroidism Continue levothyroxine. Diabetes mellitus type 2 Follow blood sugars Diet controlled Diabetic diet Global weakness Continue PT/OT DVT prophylaxis Coumadin Discharge planning Patient will be discharged after clearance from nephrology and pulmonology is present Progress Note: Quality VTE Deep Vein Thrombosis/Pulmonary Embolism Present on Admission: No Procedures Arterial Line Size (Gauge): 20 _ (1) Acute renal failure Qualifiers: Acute renal failure type: (2) Chronic kidney disease Qualifiers: Chronic kidney disease stage: (3) Diabetes mellitus Qualifiers: Diabetes mellitus type: type 2 Diabetes mellitus fci insulin use: with fci use Diabetes mellitus complication status: with kidney complications Diabetes mellitus complication detail: with other kidney complication Diabetic retinopathy severity: Proliferative retinopathy type: Diabetes mellitus macular edema: Laterality: Chronic kidney disease stage: Qualified Code(s): E11.29 - Type 2 diabetes mellitus with other diabetic kidney complication; 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
--- NOTE | 2018-03-23 12:19 | P.PNNP ---
Subjective Interval history: Patient is sleeping. No acute events overnight. Creatinine has increased at 2.98 today, continues to have good urinary output. <Hue Miller - Last Filed: 03/23/18 12:15> Physical Exam Vital signs: Vital Signs 03/22/18 16:00 03/22/18 18:34 03/22/18 20:00 Temperature 97.8 F 98.4 F Pulse Rate 83 84 Respiratory Rate 16 18 Blood Pressure 129/58 L 112/49 L Pulse Oximetry 97 96 99 03/22/18 22:13 03/23/18 00:00 03/23/18 01:06 Temperature 97.5 F L Pulse Rate 85 Respiratory Rate 18 Blood Pressure 131/56 L Pulse Oximetry 95 99 96 03/23/18 02:58 03/23/18 03:00 03/23/18 07:00 Temperature Pulse Rate Respiratory Rate 20 Blood Pressure Pulse Oximetry 96 94 L 03/23/18 08:00 Temperature 98.1 F Pulse Rate 78 Respiratory Rate 17 Blood Pressure 158/66 H Pulse Oximetry 99 Intake & Output 03/22/18 03/23/18 03/23/18 18:59 06:59 18:59 Intake Total 460 / 460 Output Total 1450 / 1450 225 / 225 Balance -1450 / -1450 235 / 235 Weight 132.1 kg Intake: Oral 460 / 460 Output: Urine 1450 / 1450 225 / 225 Other: Date of Last Bowel Movement 03/22/18 03/22/18 # Incontinent Bowel Movements 1 Narrative: GENERAL: Resting. NAD SKIN: Warm and dry. Pale. NECK: Trachea midline. No JVD. CARDIOVASCULAR: Regular rate and rhythm. RESPIRATORY: No accessory muscle use. Bibasilar rales. Diminished at bases. GASTROINTESTINAL: Abdomen obese soft, non-tender, nondistended. +BS : Orozco catheter in place draining yellow colored urine MUSCULOSKELETAL: Extremities without clubbing, or cyanosis. No obvious deformities. - Urinary Catheter Management Indwelling Urethral Catheter Cath placed during this visit: yes, but has since been removed by the nurse Reason for continuing: Acute urinary retention Insertion date: 02/26/18 Insertion time: 16:00 Removal date: 02/26/18 Removal time: 15:30 <Hue Miller - Last Filed: 03/23/18 12:15> Vital signs: Vital Signs 03/22/18 22:13 03/23/18 00:00 03/23/18 01:06 Temperature 97.5 F L Pulse Rate 85 Respiratory Rate 18 Blood Pressure 131/56 L Pulse Oximetry 95 99 96 03/23/18 02:58 03/23/18 03:00 03/23/18 07:00 Temperature Pulse Rate Respiratory Rate 20 Blood Pressure Pulse Oximetry 96 94 L 03/23/18 08:00 03/23/18 12:00 03/23/18 16:50 Temperature 98.1 F 97.6 F 98.1 F Pulse Rate 78 80 81 Respiratory Rate 17 16 18 Blood Pressure 158/66 H 132/55 L 157/73 H Pulse Oximetry 99 99 96 03/23/18 20:00 Temperature 98.6 F Pulse Rate 78 Respiratory Rate 20 Blood Pressure 133/111 H Pulse Oximetry 99 Intake & Output 03/23/18 03/23/18 03/24/18 06:59 18:59 06:59 Intake Total 460 / 460 1560 / 1560 Output Total 225 / 225 1600 / 1600 Balance 235 / 235 -40 / -40 Weight 132.1 kg Intake: Oral 460 / 460 1560 / 1560 Output: Urine 225 / 225 1600 / 1600 Other: Date of Last Bowel Movement 03/22/18 03/23/18 # Bowel Movements 1 # Incontinent Bowel Movements 1 1 - Urinary Catheter Management Indwelling Urethral Catheter Cath placed during this visit: no <Laura Brantley - Last Filed: 03/23/18 21:13> Assessment and Plan - Assessment (1) Acute renal failure Code(s): N17.9 - Acute kidney failure, unspecified Status: Acute (2) Chronic kidney disease Code(s): N18.9 - Chronic kidney disease, unspecified Status: Acute (3) Shock Code(s): R57.9 - Shock, unspecified Status: Acute (4) BMI 50.0-59.9, adult Code(s): Z68.43 - Body mass index (BMI) 50-59.9, adult Status: Chronic (5) Diabetes mellitus Code(s): E11.9 - Type 2 diabetes mellitus without complications Status: Chronic Qualifiers: Diabetes mellitus type: type 2 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 Urine out put is good. On Lasix 40 mg IV BID. Creatinine has increased to 2.9 today, will place diuretics on hold. Fluids encouraged. Avoid nephrotoxins. Maintain accurate I+O, has indwelling Orozco catheter. Follow the urine out put and BMP. Labs in AM <Hue Miller - Last Filed: 03/23/18 12:15> - Assessment (1) Acute renal failure Code(s): N17.9 - Acute kidney failure, unspecified Status: Acute (2) Chronic kidney disease Code(s): N18.9 - Chronic kidney disease, unspecified Status: Acute (3) Shock Code(s): R57.9 - Shock, unspecified Status: Acute (4) BMI 50.0-59.9, adult Code(s): Z68.43 - Body mass index (BMI) 50-59.9, adult Status: Chronic (5) Diabetes mellitus Code(s): E11.9 - Type 2 diabetes mellitus without complications Status: Chronic Qualifiers: Diabetes mellitus type: type 2 Diabetes mellitus termite control servicer insulin use: with detention use Diabetes mellitus complication status: with kidney complications Diabetes mellitus complication detail: with other kidney complication Qualified Code(s): E11.29 - Type 2 diabetes mellitus with other diabetic kidney complication; Z79.4 - [facility] (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 - Plan Patient seen and examined, agree with above. Creatinine increase slightly, K is normal. Continue Lasix, and follow the BMP. <Laura Brantley - Last Filed: 03/23/18 21:13> Procedures - Arterial Line Size (Gauge): 20 <Hue Miller - Last Filed: 03/23/18 12:15>
--- NOTE | 2018-03-23 17:56 | P.PNPL ---
Subjective Interval history: 72 YOWM with RF, renal insuff On Nasal cannula Feels tired at the end of the day No CP No fever Used CPAP last night Feels better Diureasing well Physical Exam Vital signs: Vital Signs 03/22/18 18:34 03/22/18 20:00 03/22/18 22:13 Temperature 98.4 F Pulse Rate 84 Respiratory Rate 18 Blood Pressure 112/49 L Pulse Oximetry 96 99 95 03/23/18 00:00 03/23/18 01:06 03/23/18 02:58 Temperature 97.5 F L Pulse Rate 85 Respiratory Rate 18 Blood Pressure 131/56 L Pulse Oximetry 99 96 96 03/23/18 03:00 03/23/18 07:00 03/23/18 08:00 Temperature 98.1 F Pulse Rate 78 Respiratory Rate 20 17 Blood Pressure 158/66 H Pulse Oximetry 94 L 99 03/23/18 12:00 Temperature 97.6 F Pulse Rate 80 Respiratory Rate 16 Blood Pressure 132/55 L Pulse Oximetry 99 Intake & Output 03/22/18 03/23/18 03/23/18 18:59 06:59 18:59 Intake Total 460 / 460 Output Total 1450 / 1450 225 / 225 Balance -1450 / -1450 235 / 235 Weight 132.1 kg Intake: Oral 460 / 460 Output: Urine 1450 / 1450 225 / 225 Other: Date of Last Bowel Movement 03/22/18 03/22/18 03/22/18 # Incontinent Bowel Movements 1 GENERAL: Elderly WM, bedbound for 10 yrs, NAD SKIN: Warm and dry. HEAD: Normocephalic. EYES: No scleral icterus. No injection or drainage. NECK: Supple, trachea midline. No JVD or lymphadenopathy. CARDIOVASCULAR: Regular rate and rhythm without murmurs, gallops, or rubs. RESPIRATORY: Breath sounds equal bilaterally. No accessory muscle use. GASTROINTESTINAL: Abdomen soft, non-tender, nondistended. MUSCULOSKELETAL: No cyanosis, or edema. BACK: Nontender without obvious deformity. No CVA tenderness. - Urinary Catheter Management Indwelling Urethral Catheter Cath placed during this visit: yes, but has since been removed by the nurse Reason for continuing: Chronic Urinary Retention Insertion date: 02/26/18 Insertion time: 16:00 Removal date: 02/26/18 Removal time: 15:30 Assessment and Plan - Plan IMPRESSION: Resp Failure--improved renal Failure HTN ?MIRTA PLAN: Supplement 02 with NC CPAP at night Aerosol nebs Lasix drip Monitor Naseem PRYOR RN at DC plans underway Procedures - Arterial Line Size (Gauge): 20
[2018-03-23] MEDS: QUEtiapine 25 MG Tablet PO SCH (21:07)
[2018-03-24] MEDS: Levothyroxine 50 MCG Tablet PO SCH (05:27)
[2018-03-24 07:21] LABS: INR 2.2 Ratio; Prothrombin Time 22.1 sec (9.8-11.6)
[2018-03-24 07:35] LABS: Chloride 90 meq/L (98-107); Potassium 3.8 meq/L (3.5-5.1); Sodium 133 meq/L (136-145)
[2018-03-24 07:41] LABS: Aspartate Aminotransferase 20 U/L (15-37)
[2018-03-24 07:56] LABS: Albumin 2.4 g/dL (3.4-5.0); Anion Gap 9 meq/L (5-15); Blood Urea Nitrogen 31 mg/dL (7-18); Calcium 8.6 mg/dL (8.5-10.1); Carbon Dioxide 34.5 meq/L (21.0-32.0); Glomerular Filtration Rate 19 mL/min (>89); Glucose,Random 110 mg/dL (74-106)
[2018-03-24 08:00] LABS: Alanine Aminotransferase 11 U/L (12-78); Alkaline Phosphatase 99 U/L (45-117); Total Protein 6.8 g/dL (6.4-8.2)
[2018-03-24] MEDS: Senna/Docusate Sodium 8.6/50 MG Tablet PO SCH ×2 (09:42→20:28)
[2018-03-24] MEDS: Metoprolol Tartrate 25 MG Tablet PO SCH ×2 (09:42→20:28)
[2018-03-24] MEDS: Ascorbic Acid 500 MG Tablet PO SCH ×2 (09:42→20:29)
[2018-03-24] MEDS: Potassium Chloride 25 MEQ Effervescent Tablet PO SCH ×2 (09:42→20:30)
[2018-03-24] MEDS: Gabapentin 100 MG Capsule PO SCH ×2 (09:42→20:29)
[2018-03-24] MEDS: Amiodarone 200 MG Tablet PO SCH (09:42)
[2018-03-24] MEDS: Nystatin 100,000 UNITS/GM Powder 15 GM Bottle TOPICAL SCH ×2 (09:43→20:36)
--- NOTE | 2018-03-24 10:49 | P.PNIM ---
Subjective Interval history: Creatinine level increased again today. No complaints of the patient. He still feels weak. Physical Exam Vital signs: Last Vital Signs Temp 98.4 F 03/24/18 09:01 Pulse 78 03/24/18 09:01 Resp 16 03/24/18 09:01 BP 129/55 L 03/24/18 09:01 Pulse Ox 97 03/24/18 09:01 Intake & Output 03/22/18 03/23/18 03/24/18 03/25/18 06:59 06:59 06:59 06:59 Intake Total 820 / 820 460 / 460 1800 / 1800 Output Total 3600 / 3600 1675 / 1675 2500 / 2500 Balance -2780 / -2780 -1215 / -1215 -700 / -700 Weight 136.3 kg 132.1 kg 132.7 kg Narrative: GENERAL: NAD, A&Ox3 HEAD: Normocephalic. NECK: Supple, trachea midline. No lymphadenopathy. EYES: No scleral icterus. No injection or drainage. CARDIOVASCULAR: Regular rate and rhythm without murmurs, gallops, or rubs. RESPIRATORY: Breath sounds equal bilaterally. No accessory muscle use. GASTROINTESTINAL: Abdomen soft, non-tender, nondistended. MUSCULOSKELETAL: No cyanosis, or edema. Double weakness. Muscle wasting in hands. SKIN: Warm and dry. NEURO: No focal neurological deficits. Urinary Catheter Management Indwelling Urethral Catheter: Cath placed during this visit: yes, but has since been removed by the nurse Insertion date: 02/26/18 Insertion time: 16:00 Removal date: 02/26/18 Removal time: 15:30 Results Labs CBC & Chem 7: 03/21/18 08:05 03/24/18 06:42 Assessment and Plan (1) Acute renal failure: Code(s): N17.9 - Acute kidney failure, unspecified Status: Acute (2) Chronic kidney disease: Code(s): N18.9 - Chronic kidney disease, unspecified Status: Acute (3) Shock: Code(s): R57.9 - Shock, unspecified Status: Acute (4) BMI 50.0-59.9, adult: Code(s): Z68.43 - Body mass index (BMI) 50-59.9, adult Status: Chronic (5) Diabetes mellitus: Code(s): E11.9 - Type 2 diabetes mellitus without complications Status: Chronic Plan 72-year-old male with a diagnosis of morbid obesity, depression, dementia, coronary artery disease, hypertension, dyslipidemia, diabetes, atrial fibrillation, hypothyroidism, peripheral neuropathy, chronic kidney disease stage IV, patient has a history of chronic opiate use. The patient was initially sent from [facility] rehab facility where he was found to have altered mental status, low blood pressure and a heart rate in the 30s and was given atropine. Patient also had a low systolic blood pressure and needed IV pressors. Patient was also in acute kidney injury with elevated potassium which was not improving with treatment and needed hemodialysis. Continue to follow renal function. Continue PT and OT. Acute kidney injury on chronic kidney disease stage IIIb Slow improvement seen No need for dialysis at this point Nephrology following Continue to monitor input and output Continue monitoring renal function Await nephrology clearance prior to discharge Continue Lasix Continue albumin Acute metabolic encephalopathy Resolved History of TIA Continue statin Continue Coumadin Depression Follow clinically Continue Seroquel Continue Cymbalta Peripheral neuropathy Continue gabapentin Dementia Mild at baseline Continue memantine 5 mg daily Atrial flutter/atrial fibrillation/CAD CHF with preserved EF Continue Coumadin Follow INR Continue amiodarone Continue Lopressor Cardiology following Lasix Obstructive sleep apnea Right-sided pleural effusion status post thoracentesis Continue BiPAP at night Respiratory status has stabilized compared to time of admit Patient is status post right-sided thoracentesis Pulmonology following Continue oxygen supplementation as needed Hypothyroidism Continue levothyroxine. 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
--- NOTE | 2018-03-24 11:12 | P.PNNP ---
Subjective Interval history: Patient reports feeling overall weakness. Creatinine has increased at 3.24 today. Diuretics stopped yesterday. No nausea, vomiting, or diarrhea. Physical Exam Vital signs: Vital Signs 03/23/18 12:00 03/23/18 16:50 03/23/18 20:00 Temperature 97.6 F 98.1 F 98.6 F Pulse Rate 80 81 78 Respiratory Rate 16 18 20 Blood Pressure 132/55 L 157/73 H 133/111 H Pulse Oximetry 99 96 99 03/24/18 00:00 03/24/18 04:00 03/24/18 07:00 Temperature 98.7 F 98.4 F Pulse Rate 79 79 Respiratory Rate 18 22 Blood Pressure 126/51 L 107/43 L Pulse Oximetry 97 97 98 03/24/18 09:01 Temperature 98.4 F Pulse Rate 78 Respiratory Rate 16 Blood Pressure 129/55 L Pulse Oximetry 97 Intake & Output 03/23/18 03/24/18 03/24/18 18:59 06:59 18:59 Intake Total 1560 / 1560 240 / 240 Output Total 1600 / 1600 900 / 900 Balance -40 / -40 -660 / -660 Weight 132.7 kg Intake: Oral 1560 / 1560 240 / 240 Output: Urine 1600 / 1600 900 / 900 Other: Date of Last Bowel Movement 03/23/18 03/23/18 # Bowel Movements 1 # Incontinent Bowel Movements 1 Narrative: GENERAL: NAD, A&Ox3 NECK: Supple, trachea midline. No JVD EYES: No scleral icterus. No injection or drainage. CARDIOVASCULAR: Regular rate and rhythm without murmurs, gallops, or rubs. RESPIRATORY: Breath sounds equal bilaterally. No accessory muscle use. GASTROINTESTINAL: Abdomen soft, non-tender, nondistended. +BS GI: Indwelling Orozco catheter with coby urine. MUSCULOSKELETAL: No cyanosis, or edema. Generalized weakness SKIN: Warm and dry. - Urinary Catheter Management Indwelling Urethral Catheter Cath placed during this visit: yes, but has since been removed by the nurse Reason for continuing: Chronic Urinary Retention Insertion date: 02/26/18 Insertion time: 16:00 Removal date: 02/26/18 Removal time: 15:30 Assessment and Plan - Assessment (1) Acute renal failure Code(s): N17.9 - Acute kidney failure, unspecified Status: Acute (2) Chronic kidney disease Code(s): N18.9 - Chronic kidney disease, unspecified Status: Acute (3) Shock Code(s): R57.9 - Shock, unspecified Status: Acute (4) BMI 50.0-59.9, adult Code(s): Z68.43 - Body mass index (BMI) 50-59.9, adult Status: Chronic (5) Diabetes mellitus Code(s): E11.9 - Type 2 diabetes mellitus without complications Status: Chronic Qualifiers: Diabetes mellitus type: type 2 Diabetes mellitus fci insulin use: with fci use Diabetes mellitus complication status: with kidney complications Diabetes mellitus complication detail: with other kidney complication Qualified Code(s): E11.29 - Type 2 diabetes mellitus with other diabetic kidney complication; Z79.4 - [facility] (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 - Plan Patient with chronic kidney disease and develop PIERRE from sepsis Creatinine has increased to 3.24 from 2.9 Diuretics on hold. Fluids encouraged. Avoid nephrotoxins. Maintain accurate I+O, has indwelling Orozco catheter. Follow the urine out put and BMP. Possible increase in creatinine prerenal with over diuresis, diuretics on hold. If continues to increase may benefit from gently hydration. Labs in AM Procedures - Arterial Line Size (Gauge): 20
--- NOTE | 2018-03-24 19:09 | P.PNPL ---
Subjective Interval history: 72 YOWM with RF, renal insuff On Nasal cannula Feels tired at the end of the day No CP No fever Used CPAP last night Feels better No new complaint. Physical Exam Vital signs: Vital Signs 03/23/18 20:00 03/24/18 00:00 03/24/18 04:00 Temperature 98.6 F 98.7 F 98.4 F Pulse Rate 78 79 79 Respiratory Rate 20 18 22 Blood Pressure 133/111 H 126/51 L 107/43 L Pulse Oximetry 99 97 97 03/24/18 07:00 03/24/18 09:01 03/24/18 13:00 Temperature 98.4 F 98.1 F Pulse Rate 78 78 Respiratory Rate 16 16 Blood Pressure 129/55 L 153/67 H Pulse Oximetry 98 97 98 03/24/18 14:11 03/24/18 16:49 Temperature 98 F Pulse Rate 83 Respiratory Rate 16 Blood Pressure 125/57 L Pulse Oximetry 97 99 Intake & Output 03/24/18 03/24/18 03/25/18 06:59 18:59 06:59 Intake Total 240 / 240 320 / 320 Output Total 900 / 900 200 / 200 Balance -660 / -660 120 / 120 Weight 132.7 kg Intake: Oral 240 / 240 320 / 320 Output: Urine 900 / 900 200 / 200 Other: Date of Last Bowel Movement 03/23/18 03/24/18 # Bowel Movements 1 GENERAL: Obese WM, NAD SKIN: Warm and dry. HEAD: Normocephalic. EYES: No scleral icterus. No injection or drainage. NECK: Supple, trachea midline. No JVD or lymphadenopathy. CARDIOVASCULAR: Regular rate and rhythm without murmurs, gallops, or rubs. RESPIRATORY: Breath sounds equal bilaterally. No accessory muscle use. GASTROINTESTINAL: Abdomen soft, non-tender, nondistended. MUSCULOSKELETAL: No cyanosis, or edema. BACK: Nontender without obvious deformity. No CVA tenderness. - Urinary Catheter Management Indwelling Urethral Catheter Cath placed during this visit: yes, but has since been removed by the nurse Reason for continuing: Chronic Urinary Retention Insertion date: 02/26/18 Insertion time: 16:00 Removal date: 02/26/18 Removal time: 15:30 Assessment and Plan - Plan IMPRESSION: Resp Failure--improved renal Failure HTN ?MIRTA PLAN: Supplement 02 with NC CPAP at night Aerosol nebs Lasix drip Monitor [place] Procedures - Arterial Line Size (Gauge): 20
[2018-03-24] MEDS: QUEtiapine 25 MG Tablet PO SCH (20:29)
[2018-03-25] MEDS: Levothyroxine 50 MCG Tablet PO SCH (06:03)
[2018-03-25 06:43] LABS: INR 2.1 Ratio; Prothrombin Time 20.8 sec (9.8-11.6)
[2018-03-25 06:56] LABS: Baso # (Auto) 0.1 th/mm3 (0.0-0.2); Baso % (Auto) 0.9 % (0.0-2.0); Eos # (Auto) 0.3 th/mm3 (0.0-0.4); Eos % (Auto) 2.9 % (0.0-4.0); Hemoglobin 9.2 gm/dL (13.0-17.0); Lymph # (Auto) 1.2 th/mm3 (1.0-4.8); Lymph % (Auto) 13.5 % (9.0-44.0); Mean Corpuscular HGB Conc 34.1 % (32.0-36.0); Mean Corpuscular Hemoglobin 28.7 pg (27.0-34.0); Mean Corpuscular Volume 84.2 fL (80.0-100.0); Mean Platelet Volume 7.9 fL (7.0-11.0); Mono # (Auto) 0.8 th/mm3 (0.0-0.9); Mono % (Auto) 9.2 % (0.0-8.0); Neut # (Auto) 6.6 th/mm3 (1.8-7.7); Neut % (Auto) 73.5 % (16.0-70.0); Platelet Count 221 th/mm3 (150-450); Red Blood Count 3.21 mil/mm3 (4.50-5.90); Red Cell Distribution Width 14.9 % (11.6-17.2)
[2018-03-25 07:14] LABS: Albumin 2.4 g/dL (3.4-5.0); Anion Gap 6 meq/L (5-15); Aspartate Aminotransferase 19 U/L (15-37); Blood Urea Nitrogen 33 mg/dL (7-18); Carbon Dioxide 34.7 meq/L (21.0-32.0); Chloride 90 meq/L (98-107); Glomerular Filtration Rate 18 mL/min (>89); Glucose,Random 117 mg/dL (74-106); Potassium 4.1 meq/L (3.5-5.1); Sodium 131 meq/L (136-145)
[2018-03-25 07:17] LABS: Alanine Aminotransferase 14 U/L (12-78); Alkaline Phosphatase 105 U/L (45-117); Total Protein 6.9 g/dL (6.4-8.2)
[2018-03-25] MEDS: Metoprolol Tartrate 25 MG Tablet PO SCH ×2 (09:37→20:23)
[2018-03-25] MEDS: Ascorbic Acid 500 MG Tablet PO SCH ×2 (09:37→20:23)
[2018-03-25] MEDS: Gabapentin 100 MG Capsule PO SCH ×2 (09:37→20:22)
[2018-03-25] MEDS: Amiodarone 200 MG Tablet PO SCH (09:37)
[2018-03-25] MEDS: Senna/Docusate Sodium 8.6/50 MG Tablet PO SCH ×2 (09:37→20:23)
[2018-03-25] MEDS: Potassium Chloride 25 MEQ Effervescent Tablet PO SCH ×3 (09:38→20:33)
[2018-03-25] MEDS: Nystatin 100,000 UNITS/GM Powder 15 GM Bottle TOPICAL SCH ×2 (09:41→20:24)
--- NOTE | 2018-03-25 10:15 | P.PNIM ---
Subjective Interval history: Creatinine level has increased again. No new complaints from patient. No distress. Fatigue present. Physical Exam Vital signs: Last Vital Signs Temp 98.5 F 03/25/18 08:00 Pulse 83 03/25/18 08:00 Resp 16 03/25/18 08:00 BP 111/71 03/25/18 08:00 Pulse Ox 95 03/25/18 08:21 Intake & Output 03/23/18 03/24/18 03/25/18 03/26/18 06:59 06:59 06:59 06:59 Intake Total 460 / 460 1800 / 1800 320 / 320 420 / 420 Output Total 1675 / 1675 2500 / 2500 700 / 700 Balance -1215 / -1215 -700 / -700 -380 / -380 420 / 420 Weight 132.1 kg 132.7 kg 135.6 kg Narrative: GENERAL: NAD, A&Ox3 HEAD: Normocephalic. NECK: Supple, trachea midline. No lymphadenopathy. EYES: No scleral icterus. No injection or drainage. CARDIOVASCULAR: Regular rate and rhythm without murmurs, gallops, or rubs. RESPIRATORY: Breath sounds equal bilaterally. No accessory muscle use. GASTROINTESTINAL: Abdomen soft, non-tender, nondistended. MUSCULOSKELETAL: No cyanosis, or edema. Double weakness. Muscle wasting in hands. SKIN: Warm and dry. NEURO: No focal neurological deficits. Urinary Catheter Management Indwelling Urethral Catheter: Cath placed during this visit: yes, but has since been removed by the nurse Insertion date: 02/26/18 Insertion time: 16:00 Removal date: 02/26/18 Removal time: 15:30 Results Labs CBC & Chem 7: 03/25/18 05:38 03/25/18 05:38 Assessment and Plan (1) Acute renal failure: Code(s): N17.9 - Acute kidney failure, unspecified Status: Acute (2) Chronic kidney disease: Code(s): N18.9 - Chronic kidney disease, unspecified Status: Acute (3) Shock: Code(s): R57.9 - Shock, unspecified Status: Acute (4) BMI 50.0-59.9, adult: Code(s): Z68.43 - Body mass index (BMI) 50-59.9, adult Status: Chronic (5) Diabetes mellitus: Code(s): E11.9 - Type 2 diabetes mellitus without complications Status: Chronic Plan 72-year-old male with a diagnosis of morbid obesity, depression, dementia, coronary artery disease, hypertension, dyslipidemia, diabetes, atrial fibrillation, hypothyroidism, peripheral neuropathy, chronic kidney disease stage IV, patient has a history of chronic opiate use. The patient was initially sent from [facility] where he was found to have altered mental status, low blood pressure and a heart rate in the 30s and was given atropine. Patient also had a low systolic blood pressure and needed IV pressors. Patient was also in acute kidney injury with elevated potassium which was not improving with treatment and needed hemodialysis. Slight worsening again of creatinine level. Continue monitoring. Continue to follow renal function. Continue PT and OT. Acute kidney injury on chronic kidney disease stage IIIb Slow improvement seen No need for dialysis at this point Nephrology following Continue to monitor input and output Continue monitoring renal function Await nephrology clearance prior to discharge Continue Lasix Continue albumin Acute metabolic encephalopathy Resolved History of TIA Continue statin Continue Coumadin Depression Follow clinically Continue Seroquel Continue Cymbalta Peripheral neuropathy Continue gabapentin Dementia Mild at baseline Continue memantine 5 mg daily Atrial flutter/atrial fibrillation/CAD CHF with preserved EF Continue Coumadin Follow INR Continue amiodarone Continue Lopressor Cardiology following Lasix Obstructive sleep apnea Right-sided pleural effusion status post thoracentesis Continue BiPAP at night Respiratory status has stabilized compared to time of admit Patient is status post right-sided thoracentesis Pulmonology following Continue oxygen supplementation as needed Hypothyroidism Continue levothyroxine. Diabetes mellitus type 2 Follow blood sugars Diet controlled Diabetic diet Global weakness Continue PT/OT DVT prophylaxis Coumadin Discharge planning Patient will be discharged after clearance from nephrology and pulmonology is present Progress Note: Quality VTE Deep Vein Thrombosis/Pulmonary Embolism Present on Admission: No Procedures Arterial Line Size (Gauge): 20 _ (1) Acute renal failure Qualifiers: Acute renal failure type: (2) Chronic kidney disease Qualifiers: Chronic kidney disease stage: (3) Diabetes mellitus Qualifiers: Diabetes mellitus type: type 2 Diabetes mellitus fpc insulin use: with ground products director use Diabetes mellitus complication status: with kidney complications Diabetes mellitus complication detail: with other kidney complication Diabetic retinopathy severity: Proliferative retinopathy type: Diabetes mellitus macular edema: Laterality: Chronic kidney disease stage: Qualified Code(s): E11.29 - Type 2 diabetes mellitus with other diabetic kidney complication; Z79.4 - skilled nursing (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
--- NOTE | 2018-03-25 15:37 | P.PNNP ---
Subjective Interval history: low appetite, no acute complaints Physical Exam Vital signs: Vital Signs 03/24/18 16:49 03/24/18 20:00 03/24/18 21:01 Temperature 98 F 98.2 F Pulse Rate 83 88 Respiratory Rate 16 20 Blood Pressure 125/57 L 121/48 L Pulse Oximetry 99 98 95 03/25/18 00:27 03/25/18 04:00 03/25/18 04:12 Temperature 98.1 F Pulse Rate 79 Respiratory Rate 20 Blood Pressure 116/58 L Pulse Oximetry 97 99 97 03/25/18 08:00 03/25/18 08:21 03/25/18 12:00 Temperature 98.5 F Pulse Rate 83 Respiratory Rate 16 Blood Pressure 111/71 127/62 Pulse Oximetry 98 95 100 Intake & Output 03/24/18 03/25/18 03/25/18 18:59 06:59 18:59 Intake Total 320 / 320 420 / 420 Output Total 200 / 200 500 / 500 Balance 120 / 120 -500 / -500 420 / 420 Weight 135.6 kg Intake: Oral 320 / 320 420 / 420 Output: Urine 200 / 200 Urine Amount (Catheter) 500 / 500 Indwelling Urethral Catheter 500 / 500 Other: Date of Last Bowel Movement 03/24/18 03/24/18 # Bowel Movements 1 - Constitutional no acute distress - Routine HEENT Exam Head: Present: normocephalic Eye: Present: EOMI ENT: Present: mucous membranes moist - Routine Neck Exam Present: supple - Routine Respiratory Exam Present: decreased breath sounds - Routine Cardiovascular Exam Present: RRR - Routine Abdominal Exam Present: soft - Routine Skin Exam Present: intact - Routine Neurological Exam Present: alert, oriented X3 - Detailed Neurological Exam: Coma Scale Eye Opening: Spontaneous - Routine Psychiatric Exam Present: normal affect - Urinary Catheter Management Indwelling Urethral Catheter Cath placed during this visit: yes, but has since been removed by the nurse Reason for continuing: Chronic Urinary Retention Insertion date: 02/26/18 Insertion time: 16:00 Removal date: 02/26/18 Removal time: 15:30 Assessment and Plan - Assessment (1) Acute renal failure Code(s): N17.9 - Acute kidney failure, unspecified Status: Acute (2) Chronic kidney disease Code(s): N18.9 - Chronic kidney disease, unspecified Status: Acute (3) Shock Code(s): R57.9 - Shock, unspecified Status: Acute (4) BMI 50.0-59.9, adult Code(s): Z68.43 - Body mass index (BMI) 50-59.9, adult Status: Chronic (5) Diabetes mellitus Code(s): E11.9 - Type 2 diabetes mellitus without complications Status: Chronic Qualifiers: Diabetes mellitus type: type 2 Diabetes mellitus terminal system operator insulin use: with terminal system operator use Diabetes mellitus complication status: with kidney complications Diabetes mellitus complication detail: with other kidney complication Qualified Code(s): E11.29 - Type 2 diabetes mellitus with other diabetic kidney complication; Z79.4 - halfway (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 - Plan Patient with chronic kidney disease and develop PIERRE from sepsis Creatinine has increased: 2.9 -> 3.2 -> 3.4 Diuretics on hold. Fluids encouraged - discussed with patient to increase PO intake Avoid nephrotoxins. Maintain accurate I+O, has indwelling Orozco catheter. Follow the urine out put and BMP. Possible increase in creatinine prerenal with over diuresis, diuretics on hold. If continues to increase may benefit from gentle hydration tomorrow Labs in AM Procedures - Arterial Line Size (Gauge): 20
--- NOTE | 2018-03-25 17:30 | P.PNPL ---
Subjective Interval history: 72 YOWM with RF, renal insuff On Nasal cannula Feels tired at the end of the day No CP No fever Used CPAP last night Feels better Creatinine increased Physical Exam Vital signs: Vital Signs 03/24/18 20:00 03/24/18 21:01 03/25/18 00:27 Temperature 98.2 F Pulse Rate 88 Respiratory Rate 20 Blood Pressure 121/48 L Pulse Oximetry 98 95 97 03/25/18 04:00 03/25/18 04:12 03/25/18 08:00 Temperature 98.1 F 98.5 F Pulse Rate 79 83 Respiratory Rate 20 16 Blood Pressure 116/58 L 111/71 Pulse Oximetry 99 97 98 03/25/18 08:21 03/25/18 12:00 03/25/18 16:52 Temperature 98.7 F Pulse Rate 82 Respiratory Rate 16 Blood Pressure 127/62 140/78 Pulse Oximetry 95 100 100 Intake & Output 03/24/18 03/25/18 03/25/18 18:59 06:59 18:59 Intake Total 320 / 320 420 / 420 Output Total 200 / 200 500 / 500 Balance 120 / 120 -500 / -500 420 / 420 Weight 135.6 kg Intake: Oral 320 / 320 420 / 420 Output: Urine 200 / 200 Urine Amount (Catheter) 500 / 500 Indwelling Urethral Catheter 500 / 500 Other: Date of Last Bowel Movement 03/24/18 03/24/18 03/25/18 # Bowel Movements 1 GENERAL: WBWn NAD SKIN: Warm and dry. HEAD: Normocephalic. EYES: No scleral icterus. No injection or drainage. NECK: Supple, trachea midline. No JVD or lymphadenopathy. CARDIOVASCULAR: Regular rate and rhythm without murmurs, gallops, or rubs. RESPIRATORY: Breath sounds equal bilaterally. No accessory muscle use. GASTROINTESTINAL: Abdomen soft, non-tender, nondistended. MUSCULOSKELETAL: No cyanosis, or edema. BACK: Nontender without obvious deformity. No CVA tenderness. - Urinary Catheter Management Indwelling Urethral Catheter Cath placed during this visit: yes, but has since been removed by the nurse Reason for continuing: Chronic Urinary Retention Insertion date: 02/26/18 Insertion time: 16:00 Removal date: 02/26/18 Removal time: 15:30 Assessment and Plan - Plan IMPRESSION: Resp Failure--improved renal Failure HTN ?MIRTA PLAN: Supplement 02 with NC CPAP at night Aerosol nebs Monitor Lytes Procedures - Arterial Line Size (Gauge): 20
[2018-03-25] MEDS: QUEtiapine 25 MG Tablet PO SCH (20:23)
[2018-03-26] MEDS: Morphine Inj 4 MG/ML Vial IV.PUSH PRN (00:10)
[2018-03-26] MEDS: Levothyroxine 50 MCG Tablet PO SCH (05:45)
[2018-03-26 06:54] LABS: Alanine Aminotransferase 12 U/L (12-78); Albumin 2.4 g/dL (3.4-5.0); Anion Gap 7 meq/L (5-15); Aspartate Aminotransferase 20 U/L (15-37); Blood Urea Nitrogen 36 mg/dL (7-18); Calcium 8.4 mg/dL (8.5-10.1); Carbon Dioxide 32.7 meq/L (21.0-32.0); Chloride 89 meq/L (98-107); Glomerular Filtration Rate 16 mL/min (>89); Glucose,Random 127 mg/dL (74-106); Potassium 4.4 meq/L (3.5-5.1); Sodium 129 meq/L (136-145)
[2018-03-26 06:57] LABS: Alkaline Phosphatase 117 U/L (45-117); Total Protein 7.2 g/dL (6.4-8.2)
[2018-03-26 07:02] LABS: INR 1.9 Ratio; Prothrombin Time 19.7 sec (9.8-11.6)
[2018-03-26] MEDS: Gabapentin 100 MG Capsule PO SCH ×2 (08:38→20:57)
[2018-03-26] MEDS: Potassium Chloride 25 MEQ Effervescent Tablet PO SCH ×2 (08:38→20:58)
[2018-03-26] MEDS: Amiodarone 200 MG Tablet PO SCH (08:39)
[2018-03-26] MEDS: Metoprolol Tartrate 25 MG Tablet PO SCH ×2 (08:39→20:57)
[2018-03-26] MEDS: Ascorbic Acid 500 MG Tablet PO SCH ×2 (08:39→20:58)
[2018-03-26] MEDS: Nystatin 100,000 UNITS/GM Powder 15 GM Bottle TOPICAL SCH ×2 (08:40→21:04)
[2018-03-26] MEDS: Senna/Docusate Sodium 8.6/50 MG Tablet PO SCH ×2 (08:40→20:57)
--- NOTE | 2018-03-26 13:38 | P.PNIM ---
Subjective Interval history: No nausea or vomiting or fever overnight. No new complaints from patient. Creatinine level 3.75 today. Physical Exam Vital signs: Last Vital Signs Temp 97.4 F L 03/26/18 12:00 Pulse 76 03/26/18 12:00 Resp 17 03/26/18 12:00 BP 163/98 H 03/26/18 12:00 Pulse Ox 95 03/26/18 12:00 Intake & Output 03/24/18 03/25/18 03/26/18 03/27/18 06:59 06:59 06:59 06:59 Intake Total 1800 / 1800 320 / 320 620 / 620 Output Total 2500 / 2500 700 / 700 375 / 375 Balance -700 / -700 -380 / -380 245 / 245 Weight 132.7 kg 135.6 kg 135.2 kg Narrative: GENERAL: NAD, A&Ox3 HEAD: Normocephalic. NECK: Supple, trachea midline. No lymphadenopathy. EYES: No scleral icterus. No injection or drainage. CARDIOVASCULAR: Regular rate and rhythm without murmurs, gallops, or rubs. RESPIRATORY: Breath sounds equal bilaterally. No accessory muscle use. GASTROINTESTINAL: Abdomen soft, non-tender, nondistended. MUSCULOSKELETAL: No cyanosis, or edema. Double weakness. Muscle wasting in hands. SKIN: Warm and dry. NEURO: No focal neurological deficits. Urinary Catheter Management Indwelling Urethral Catheter: Cath placed during this visit: yes, but has since been removed by the nurse Insertion date: 02/26/18 Insertion time: 16:00 Removal date: 02/26/18 Removal time: 15:30 Results Labs CBC & Chem 7: 03/25/18 05:38 03/26/18 05:42 Assessment and Plan (1) Acute renal failure: Code(s): N17.9 - Acute kidney failure, unspecified Status: Acute (2) Chronic kidney disease: Code(s): N18.9 - Chronic kidney disease, unspecified Status: Acute (3) Shock: Code(s): R57.9 - Shock, unspecified Status: Acute (4) BMI 50.0-59.9, adult: Code(s): Z68.43 - Body mass index (BMI) 50-59.9, adult Status: Chronic (5) Diabetes mellitus: Code(s): E11.9 - Type 2 diabetes mellitus without complications Status: Chronic Plan 72-year-old male with a diagnosis of morbid obesity, depression, dementia, coronary artery disease, hypertension, dyslipidemia, diabetes, atrial fibrillation, hypothyroidism, peripheral neuropathy, chronic kidney disease stage IV, patient has a history of chronic opiate use. [facility] he was found to have altered mental status, low blood pressure and a heart rate in the 30s and was given atropine. Patient also had a low systolic blood pressure and needed IV pressors. Patient was also in acute kidney injury with elevated potassium which was not improving with treatment and needed hemodialysis. No respiratory symptoms today or last night. Slight worsening again of creatinine level. Otherwise no acute changes overnight. Continue monitoring. Continue to follow renal function. Continue PT and OT. Acute kidney injury on chronic kidney disease stage IIIb Slow improvement seen No need for dialysis at this point Nephrology following Continue to monitor input and output Continue monitoring renal function Await nephrology clearance prior to discharge Continue Lasix Continue albumin Acute metabolic encephalopathy Resolved History of TIA Continue statin Continue Coumadin Depression Follow clinically Continue Seroquel Continue Cymbalta Peripheral neuropathy Continue gabapentin Dementia Mild at baseline Continue memantine 5 mg daily Atrial flutter/atrial fibrillation/CAD CHF with preserved EF Continue Coumadin Follow INR Continue amiodarone Continue Lopressor Cardiology following Lasix Obstructive sleep apnea Right-sided pleural effusion status post thoracentesis Continue BiPAP at night Respiratory status has stabilized compared to time of admit Patient is status post right-sided thoracentesis Pulmonology following Continue oxygen supplementation as needed Hypothyroidism Continue levothyroxine. 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
--- NOTE | 2018-03-26 13:48 | P.PNNP ---
Subjective Interval history: Ongoing fatigue Physical Exam Vital signs: Vital Signs 03/25/18 16:52 03/25/18 20:00 03/26/18 00:00 Temperature 98.7 F 98.7 F 98.3 F Pulse Rate 82 88 88 Respiratory Rate 16 18 18 Blood Pressure 140/78 167/67 H 125/55 L Pulse Oximetry 100 98 96 03/26/18 08:00 03/26/18 09:07 03/26/18 12:00 Temperature 97.6 F 97.4 F L Pulse Rate 75 76 Respiratory Rate 16 17 Blood Pressure 108/65 163/98 H Pulse Oximetry 98 96 95 Intake & Output 03/25/18 03/26/18 03/26/18 18:59 06:59 18:59 Intake Total 420 / 420 200 / 200 Output Total 375 / 375 Balance 420 / 420 -175 / -175 Weight 135.2 kg Intake: Oral 420 / 420 200 / 200 Output: Urine Amount (Catheter) 375 / 375 Indwelling Urethral Catheter 375 / 375 Other: Date of Last Bowel Movement 03/25/18 03/25/18 - Constitutional no acute distress - Routine HEENT Exam Head: Present: normocephalic Eye: Present: EOMI ENT: Present: mucous membranes moist - Routine Neck Exam Present: supple - Routine Respiratory Exam Present: decreased breath sounds - Routine Cardiovascular Exam Present: RRR - Routine Abdominal Exam Present: soft - Routine Extremities Exam Present: pulses intact - Routine Skin Exam Present: intact - Routine Neurological Exam Present: alert, oriented X3 - Detailed Neurological Exam: Coma Scale Eye Opening: Spontaneous - Routine Psychiatric Exam Present: normal affect - Urinary Catheter Management Indwelling Urethral Catheter Cath placed during this visit: yes, but has since been removed by the nurse Reason for continuing: Chronic Urinary Retention Insertion date: 02/26/18 Insertion time: 16:00 Removal date: 02/26/18 Removal time: 15:30 Assessment and Plan - Assessment (1) Acute renal failure Code(s): N17.9 - Acute kidney failure, unspecified Status: Acute (2) Chronic kidney disease Code(s): N18.9 - Chronic kidney disease, unspecified Status: Acute (3) Shock Code(s): R57.9 - Shock, unspecified Status: Acute (4) BMI 50.0-59.9, adult Code(s): Z68.43 - Body mass index (BMI) 50-59.9, adult Status: Chronic (5) Diabetes mellitus Code(s): E11.9 - Type 2 diabetes mellitus without complications Status: Chronic Qualifiers: Diabetes mellitus type: type 2 Diabetes mellitus prison insulin use: with exterminator termite use Diabetes mellitus complication status: with kidney complications Diabetes mellitus complication detail: with other kidney complication Qualified Code(s): E11.29 - Type 2 diabetes mellitus with other diabetic kidney complication; Z79.4 - detention (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 - Plan Patient with chronic kidney disease and develop PIERRE from sepsis Creatinine has increased: 2.9 -> 3.2 -> 3.4 -> 3.7 Possible increase in creatinine prerenal with over diuresis, diuretics on hold. Alkalosis, hypochloremic Limited PO intake -will give trial of IVFs with NS at 70cc/hour. Follow serum Na: 129 today Avoid nephrotoxins. Maintain accurate I+O, has indwelling Orozco catheter. Follow the urine out put and BMP. Labs in AM Procedures - Arterial Line Size (Gauge): 20
[2018-03-26 15:44] LABS: Bacteria,Urine Few /hpf; Bilirubin,Urine Negative (Negative); Clarity,Urine Turbid (Clear); Color,Urine Yellow (Yellw/Straw); Glucose,Urine (UA) Negative (Negative); Leukocyte Esterase,Urine Moderate (Negative); Mucus,Urine Few /lpf (Occasional); Nitrite,Urine Negative (Negative); Specific Gravity,Urine 1.012 (1.002-1.035)
--- NOTE | 2018-03-26 17:38 | P.PNPL ---
Subjective Interval history: 72 YOWM with RF, renal insuff On Nasal cannula Feels tired at the end of the day No CP No fever Used CPAP last night Started IVF due to poor intake Physical Exam Vital signs: Vital Signs 03/25/18 20:00 03/26/18 00:00 03/26/18 08:00 Temperature 98.7 F 98.3 F 97.6 F Pulse Rate 88 88 75 Respiratory Rate 18 18 16 Blood Pressure 167/67 H 125/55 L 108/65 Pulse Oximetry 98 96 98 03/26/18 09:07 03/26/18 12:00 03/26/18 16:00 Temperature 97.4 F L 97.1 F L Pulse Rate 76 76 Respiratory Rate 17 18 Blood Pressure 163/98 H 138/73 Pulse Oximetry 96 95 100 Intake & Output 03/25/18 03/26/18 03/26/18 18:59 06:59 18:59 Intake Total 420 / 420 200 / 200 Output Total 375 / 375 Balance 420 / 420 -175 / -175 Weight 135.2 kg Intake: Oral 420 / 420 200 / 200 Output: Urine Amount (Catheter) 375 / 375 Indwelling Urethral Catheter 375 / 375 Other: Date of Last Bowel Movement 03/25/18 03/25/18 - Urinary Catheter Management Indwelling Urethral Catheter Cath placed during this visit: yes, but has since been removed by the nurse Reason for continuing: Chronic Urinary Retention Insertion date: 02/26/18 Insertion time: 16:00 Removal date: 02/26/18 Removal time: 15:30 Assessment and Plan - Plan IMPRESSION: Resp Failure--improved renal Failure HTN ?MIRTA PLAN: Supplement 02 with NC CPAP at night Aerosol nebs Monitor Lytes Procedures - Arterial Line Size (Gauge): 20
[2018-03-26] MEDS: Lactobacillus Acidophilus/L. Spores Tablet PO SCH (17:55)
[2018-03-26] MEDS: QUEtiapine 25 MG Tablet PO SCH (20:57)
[2018-03-27] MEDS: Levothyroxine 50 MCG Tablet PO SCH (05:19)
[2018-03-27 06:54] LABS: Baso # (Auto) 0.1 th/mm3 (0.0-0.2); Baso % (Auto) 0.8 % (0.0-2.0); Eos # (Auto) 0.2 th/mm3 (0.0-0.4); Eos % (Auto) 1.6 % (0.0-4.0); Hemoglobin 8.9 gm/dL (13.0-17.0); Lymph % (Auto) 8.6 % (9.0-44.0); Mean Corpuscular HGB Conc 32.9 % (32.0-36.0); Mean Corpuscular Hemoglobin 28.2 pg (27.0-34.0); Mean Corpuscular Volume 85.9 fL (80.0-100.0); Mean Platelet Volume 8.4 fL (7.0-11.0); Mono # (Auto) 0.8 th/mm3 (0.0-0.9); Mono % (Auto) 7.1 % (0.0-8.0); Neut # (Auto) 9.3 th/mm3 (1.8-7.7); Neut % (Auto) 81.9 % (16.0-70.0); Platelet Count 182 th/mm3 (150-450); Red Blood Count 3.14 mil/mm3 (4.50-5.90); Red Cell Distribution Width 14.9 % (11.6-17.2); White Blood Count 11.3 th/mm3 (4.0-11.0)
[2018-03-27 07:01] LABS: INR 2.1 Ratio; Prothrombin Time 21.7 sec (9.8-11.6)
[2018-03-27 07:18] LABS: Alanine Aminotransferase 14 U/L (12-78); Albumin 2.4 g/dL (3.4-5.0); Anion Gap 7 meq/L (5-15); Aspartate Aminotransferase 18 U/L (15-37); Blood Urea Nitrogen 43 mg/dL (7-18); Calcium 8.4 mg/dL (8.5-10.1); Carbon Dioxide 32.4 meq/L (21.0-32.0); Chloride 88 meq/L (98-107); Glomerular Filtration Rate 13 mL/min (>89); Glucose,Random 117 mg/dL (74-106); Sodium 127 meq/L (136-145)
[2018-03-27 07:21] LABS: Alkaline Phosphatase 122 U/L (45-117); Total Protein 7.3 g/dL (6.4-8.2)
[2018-03-27] MEDS: Nystatin 100,000 UNITS/GM Powder 15 GM Bottle TOPICAL SCH ×2 (08:17→22:27)
[2018-03-27] MEDS: Ascorbic Acid 500 MG Tablet PO SCH ×2 (08:17→22:27)
[2018-03-27] MEDS: Senna/Docusate Sodium 8.6/50 MG Tablet PO SCH ×2 (08:17→22:27)
[2018-03-27] MEDS: Lactobacillus Acidophilus/L. Spores Tablet PO SCH ×3 (08:17→17:00)
[2018-03-27] MEDS: Amiodarone 200 MG Tablet PO SCH (08:17)
[2018-03-27] MEDS: Gabapentin 100 MG Capsule PO SCH ×2 (08:17→22:25)
[2018-03-27] MEDS: Metoprolol Tartrate 25 MG Tablet PO SCH ×2 (08:17→22:25)
[2018-03-27] MEDS: Potassium Chloride 25 MEQ Effervescent Tablet PO SCH (08:17)
--- NOTE | 2018-03-27 15:20 | P.PNNP ---
Subjective Interval history: Seen in AM. Reports generalized weakness and poor appetite <Hue Miller - Last Filed: 03/27/18 15:16> Physical Exam Vital signs: Vital Signs 03/26/18 16:00 03/26/18 20:00 03/26/18 21:00 Temperature 97.1 F L 97.5 F L Pulse Rate 76 76 Respiratory Rate 18 18 Blood Pressure 138/73 109/51 L Pulse Oximetry 100 96 95 03/27/18 00:08 03/27/18 08:00 03/27/18 09:04 Temperature 97.8 F 99.3 F Pulse Rate 73 78 Respiratory Rate 21 16 Blood Pressure 118/50 L 113/52 L Pulse Oximetry 96 98 03/27/18 09:06 03/27/18 14:03 Temperature Pulse Rate Respiratory Rate Blood Pressure Pulse Oximetry 98 96 Intake & Output 03/26/18 03/27/18 03/27/18 18:59 06:59 18:59 Intake Total 475 / 475 380 / 380 120 / 120 Output Total 125 / 125 350 / 350 Balance 350 / 350 30 / 30 120 / 120 Weight 135 kg Intake: IV 200 / 200 Diflucan 200 mg Premix Bag 100 100 / 100 ML @ 100 mls/hr IV.SIG ONCE ONE Rx#:[id number] Rocephin Inj 1,000 MG In NS Inj 100 / 100 100 ML @ 200 mls/hr IV.SIG Q24H ANA Rx#:[id number] Oral 475 / 475 180 / 180 120 / 120 Output: Urine Amount (Catheter) 125 / 125 350 / 350 Indwelling Urethral Catheter 125 / 125 350 / 350 Other: Date of Last Bowel Movement 03/25/18 # Bowel Movements 0 Narrative: GENERAL: NAD, A&Ox3 HEAD: Normocephalic. NECK: Supple, trachea midline. No JVD. EYES: No scleral icterus. No injection or drainage. CARDIOVASCULAR: Regular rate and rhythm without murmurs, gallops, or rubs. RESPIRATORY: Breath sounds equal bilaterally. No accessory muscle use. GASTROINTESTINAL: Abdomen soft, non-tender, nondistended. MUSCULOSKELETAL: No cyanosis, or edema. Double weakness. Muscle wasting in hands. SKIN: Warm and dry. - Urinary Catheter Management Indwelling Urethral Catheter Cath placed during this visit: yes, but has since been removed by the nurse Reason for continuing: Hourly intake/output Insertion date: 02/26/18 Insertion time: 16:00 Removal date: 02/26/18 Removal time: 15:30 <Hue Miller - Last Filed: 03/27/18 15:16> Vital signs: Vital Signs 03/27/18 00:08 03/27/18 08:00 03/27/18 09:04 Temperature 97.8 F 99.3 F Pulse Rate 73 78 Respiratory Rate 21 16 Blood Pressure 118/50 L 113/52 L Pulse Oximetry 96 98 03/27/18 09:06 03/27/18 12:00 03/27/18 14:03 Temperature 97.2 F L Pulse Rate 83 Respiratory Rate 16 Blood Pressure 144/68 H Pulse Oximetry 98 97 96 03/27/18 16:00 03/27/18 20:00 Temperature 98 F Pulse Rate 77 Respiratory Rate 16 Blood Pressure 134/63 Pulse Oximetry 97 92 L Intake & Output 03/27/18 03/27/18 03/28/18 06:59 18:59 06:59 Intake Total 380 / 380 270 / 270 Output Total 350 / 350 325 / 325 Balance 30 / 30 -55 / -55 Weight 135 kg Intake: IV 200 / 200 150 / 150 Diflucan 100 mg Premix Bag 50 50 / 50 ML @ 50 mls/hr IV.SIG Q24H ANA Rx#:[id number] Diflucan 200 mg Premix Bag 100 100 / 100 ML @ 100 mls/hr IV.SIG ONCE ONE Rx#:[id number] Rocephin Inj 1,000 MG In NS Inj 100 / 100 100 / 100 100 ML @ 200 mls/hr IV.SIG Q24H ANA Rx#:[id number] Oral 180 / 180 120 / 120 Output: Urine 325 / 325 Urine Amount (Catheter) 350 / 350 Indwelling Urethral Catheter 350 / 350 Other: Date of Last Bowel Movement 03/25/18 03/25/18 - Urinary Catheter Management Indwelling Urethral Catheter Cath placed during this visit: no <Laura Brantley - Last Filed: 03/27/18 22:10> Assessment and Plan - Assessment (1) Acute renal failure Code(s): N17.9 - Acute kidney failure, unspecified Status: Acute (2) Chronic kidney disease Code(s): N18.9 - Chronic kidney disease, unspecified Status: Acute (3) Shock Code(s): R57.9 - Shock, unspecified Status: Acute (4) BMI 50.0-59.9, adult Code(s): Z68.43 - Body mass index (BMI) 50-59.9, adult Status: Chronic (5) Diabetes mellitus Code(s): E11.9 - Type 2 diabetes mellitus without complications Status: Chronic Qualifiers: Diabetes mellitus type: type 2 Diabetes mellitus 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/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/supervisor insulin use: with snf use Diabetes mellitus complication status: with kidney complications Diabetes mellitus complication detail: with other kidney complication Qualified Code(s): E11.29 - Type 2 diabetes mellitus with other diabetic kidney complication; Z79.4 - oven worker (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 - Plan Patient with chronic kidney disease and develop PIERRE from sepsis Last Hemodialysis on 03/03 Creatinine has increased: 2.9 -> 3.2 -> 3.4 -> 3.7 ->4.5 UOP 475 ml/24 hours Possible increase in creatinine prerenal with over diuresis and poor intake Alkalosis, hypochloremic Limited PO intake -will give trial of IVFs with NS Follow serum Na: 127 Avoid nephrotoxins. Maintain accurate I+O, has indwelling Orozco catheter. Follow the urine out put and BMP. Potassium replacement discontinued. Labs in AM <Hue Miller - Last Filed: 03/27/18 15:16> - Assessment (1) Acute renal failure Code(s): N17.9 - Acute kidney failure, unspecified Status: Acute (2) Chronic kidney disease Code(s): N18.9 - Chronic kidney disease, unspecified Status: Acute (3) Shock Code(s): R57.9 - Shock, unspecified Status: Acute (4) BMI 50.0-59.9, adult Code(s): Z68.43 - Body mass index (BMI) 50-59.9, adult Status: Chronic (5) Diabetes mellitus Code(s): E11.9 - Type 2 diabetes mellitus without complications Status: Chronic Qualifiers: Diabetes mellitus type: type 2 Diabetes mellitus snf insulin use: with 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/laborer/supervisor use Diabetes mellitus complication status: with kidney complications Diabetes mellitus complication detail: with other kidney complication Qualified Code(s): E11.29 - Type 2 diabetes mellitus with other diabetic kidney complication; Z79.4 - oven worker (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 - Plan Patient seen and examined, agree with above. Creatinine increasing, off diuretics. Gentle Hydration, not eating well. Follow the urine out put and BMP. <Laura Brantley - Last Filed: 03/27/18 22:10> Procedures - Arterial Line Size (Gauge): 20 <Hue Miller - Last Filed: 03/27/18 15:16>
--- NOTE | 2018-03-27 16:16 | P.PN ---
Subjective Interval history: states abdominal pain - generalized - most in the right lwoer quadrant area poor po appetite- "quit eating because of pain" awake and alert, speech clear Physical Exam Vital signs: Vital Signs 03/26/18 20:00 03/26/18 21:00 03/27/18 00:08 Temperature 97.5 F L 97.8 F Pulse Rate 76 73 Respiratory Rate 18 21 Blood Pressure 109/51 L 118/50 L Pulse Oximetry 96 95 96 03/27/18 08:00 03/27/18 09:04 03/27/18 09:06 Temperature 99.3 F Pulse Rate 78 Respiratory Rate 16 Blood Pressure 113/52 L Pulse Oximetry 98 98 03/27/18 14:03 Temperature Pulse Rate Respiratory Rate Blood Pressure Pulse Oximetry 96 Intake & Output 03/26/18 03/27/18 03/27/18 18:59 06:59 18:59 Intake Total 475 / 475 380 / 380 120 / 120 Output Total 125 / 125 350 / 350 Balance 350 / 350 30 / 30 120 / 120 Weight 135 kg Intake: IV 200 / 200 Diflucan 200 mg Premix Bag 100 100 / 100 ML @ 100 mls/hr IV.SIG ONCE ONE Rx#:[id number] Rocephin Inj 1,000 MG In NS Inj 100 / 100 100 ML @ 200 mls/hr IV.SIG Q24H ANA Rx#:[id number] Oral 475 / 475 180 / 180 120 / 120 Output: Urine Amount (Catheter) 125 / 125 350 / 350 Indwelling Urethral Catheter 125 / 125 350 / 350 Other: Date of Last Bowel Movement 03/25/18 # Bowel Movements 0 Narrative: GENERAL: NAD, A&Ox3, speeech soft but clear HEAD: Normocephalic. NECK: Supple, trachea midline. No JVD. EYES: No scleral icterus. No injection or drainage. CARDIOVASCULAR: Regular rate and rhythm without murmurs, gallops, or rubs. RESPIRATORY: Breath sounds equal bilaterally. No accessory muscle use. GASTROINTESTINAL: Abdomen soft, + few bowel sounds, mild tenderness epigastric area and right lower qudrant area MUSCULOSKELETAL: No cyanosis, or edema. Double weakness. Muscle wasting in hands. SKIN: Warm and dry. - Urinary Catheter Management Indwelling Urethral Catheter Cath placed during this visit: yes, but has since been removed by the nurse Reason for continuing: Hourly intake/output Insertion date: 02/26/18 Insertion time: 16:00 Removal date: 02/26/18 Removal time: 15:30 Results - Labs CBC & Chem 7: 03/27/18 06:15 03/27/18 06:15 Laboratory Results - last 24 hr 03/27/18 03/27/18 03/27/18 06:15 06:15 06:15 WBC 11.3 H RBC 3.14 L Hgb 8.9 L Hct 27.0 L MCV 85.9 MCH 28.2 MCHC 32.9 RDW 14.9 Plt Count 182 MPV 8.4 Neut % (Auto) 81.9 H Lymph % (Auto) 8.6 L Giles % (Auto) 7.1 Eos % (Auto) 1.6 Baso % (Auto) 0.8 Neut # (Auto) 9.3 H Lymph # (Auto) 1.0 Giles # (Auto) 0.8 Eos # (Auto) 0.2 Baso # (Auto) 0.1 WBC Differential . Differential Comment Auto diff final PT 21.7 H INR 2.1 Sodium 127 L Potassium 5.0 Chloride 88 L Carbon Dioxide 32.4 H Anion Gap 7 BUN 43 H Creatinine 4.56 H Estimated GFR 13 L Random Glucose 117 H Calcium 8.4 L Total Bilirubin 0.5 AST 18 ALT 14 Alkaline Phosphatase 122 H Total Protein 7.3 Albumin 2.4 L Assessment and Plan - Assessment (1) Acute renal failure Code(s): N17.9 - Acute kidney failure, unspecified Status: Acute (2) Chronic kidney disease Code(s): N18.9 - Chronic kidney disease, unspecified Status: Acute (3) Shock Code(s): R57.9 - Shock, unspecified Status: Acute (4) BMI 50.0-59.9, adult Code(s): Z68.43 - Body mass index (BMI) 50-59.9, adult Status: Chronic (5) Diabetes mellitus Code(s): E11.9 - Type 2 diabetes mellitus without complications Status: Chronic - Plan 72-year-old male with a diagnosis of morbid obesity, depression, dementia, coronary artery disease, hypertension, dyslipidemia, diabetes, atrial fibrillation, hypothyroidism, peripheral neuropathy, chronic kidney disease stage IV, patient has a history of chronic opiate use. The patient was initially sent from [facility] where he was found to have altered mental status, low blood pressure and a heart rate in the 30s and was given atropine. Patient also had a low systolic blood pressure and needed IV pressors. Patient was also in acute kidney injury with elevated potassium which was not improving with treatment and needed hemodialysis. Acute kidney injury on chronic kidney disease stage IIIb- creatinine trending up Slow improvement seen No need for dialysis at this point Nephrology following - we will start him on gentle IVF- poor po Continue to monitor input and output Continue monitoring renal function Nephrology ff ff off Lasix Abdominal pain - slightely tender on exam - get CT of abdomen Acute metabolic encephalopathy Resolved History of TIA Continue statin Continue Coumadin Depression Follow clinically Continue Seroquel Continue Cymbalta Peripheral neuropathy Continue gabapentin Dementia Mild at baseline Continue memantine 5 mg daily Atrial flutter/atrial fibrillation/CAD CHF with preserved EF Continue Coumadin Follow INR Continue amiodarone Continue Lopressor Cardiology following Lasix Obstructive sleep apnea Right-sided pleural effusion status post thoracentesis Continue BiPAP at night Respiratory status has stabilized compared to time of admit Patient is status post right-sided thoracentesis Pulmonology following Continue oxygen supplementation as needed Hypothyroidism Continue levothyroxine. 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
[2018-03-27] MEDS ORDERED: Morphine Sulfate Inj 2 MG/ML Vial IV.PUSH PRN (16:34)
--- NOTE | 2018-03-27 16:41 | P.PN ---
Physical Exam Vital signs: Vital Signs - Urinary Catheter Management Indwelling Urethral Catheter Cath placed during this visit: yes, but has since been removed by the nurse Reason for continuing: Hourly intake/output Insertion date: 02/26/18 Insertion time: 16:00 Removal date: 02/26/18 Removal time: 15:30 Results - Labs CBC & Chem 7: 03/27/18 06:15 03/27/18 06:15 Laboratory Results - last 24 hr 03/27/18 03/27/18 03/27/18 06:15 06:15 06:15 WBC 11.3 H RBC 3.14 L Hgb 8.9 L Hct 27.0 L MCV 85.9 MCH 28.2 MCHC 32.9 RDW 14.9 Plt Count 182 MPV 8.4 Neut % (Auto) 81.9 H Lymph % (Auto) 8.6 L Maury % (Auto) 7.1 Eos % (Auto) 1.6 Baso % (Auto) 0.8 Neut # (Auto) 9.3 H Lymph # (Auto) 1.0 Maury # (Auto) 0.8 Eos # (Auto) 0.2 Baso # (Auto) 0.1 WBC Differential . Differential Comment Auto diff final PT 21.7 H INR 2.1 Sodium 127 L Potassium 5.0 Chloride 88 L Carbon Dioxide 32.4 H Anion Gap 7 BUN 43 H Creatinine 4.56 H Estimated GFR 13 L Random Glucose 117 H Calcium 8.4 L Total Bilirubin 0.5 AST 18 ALT 14 Alkaline Phosphatase 122 H Total Protein 7.3 Albumin 2.4 L Assessment and Plan - Assessment (1) Acute renal failure Code(s): N17.9 - Acute kidney failure, unspecified Status: Acute (2) Chronic kidney disease Code(s): N18.9 - Chronic kidney disease, unspecified Status: Acute (3) Shock Code(s): R57.9 - Shock, unspecified Status: Acute (4) BMI 50.0-59.9, adult Code(s): Z68.43 - Body mass index (BMI) 50-59.9, adult Status: Chronic (5) Diabetes mellitus Code(s): E11.9 - Type 2 diabetes mellitus without complications Status: Chronic Procedures - Arterial Line Size (Gauge): 20 (5) Diabetes mellitus Qualifiers: Diabetes mellitus type: type 2 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
[2018-03-27] MEDS: Sod Chloride 0.9% Inj 1,000 ML IV.CONT SCH ×2 (16:53→17:59)
[2018-03-27] MEDS: Morphine Inj 4 MG/ML Vial IV.PUSH PRN (16:54)
--- NOTE | 2018-03-27 20:40 | CT ---
EXAM DATE: 03/27/2018 8:31 PM EST AGE/SEX: 73 years / Male INDICATIONS: Abdomen pain CLINICAL DATA: This is the patient's initial encounter. Patient reports that signs and symptoms have been present for 1 day and indicates a pain score of 8/10. MEDICAL/SURGICAL HISTORY: Renal disease. Cardiovascular disease. None. RADIATION DOSE: 31.59 CTDI (mGy) COMPARISON: [facility] [place], CT ABDOMEN & PELVIS W/O CONTRAST, 02/26/2018. . TECHNIQUE: Multiple contiguous axial images were obtained through the abdomen. Images were obtained using multiple row detector helical technique. Using automated exposure control and adjustment of the mA and/or kV according to patient size, radiation dose was kept as low as reasonably achievable to o btain optimal diagnostic quality images. DICOM format image data is available electronically for rev iew and comparison. FINDINGS: Lower Lungs: Moderate/large bilateral pleural effusions and bibasilar densities. Small pericardial ef fusion. Liver: The liver has a homogeneous density without space-occupying lesion. There is no dilation of th e biliary tree. Cholecystectomy clips. Minimal fluid adjacent to the liver Spleen: Homogeneous density without enlargement. Pancreas: Unremarkable without mass or calcification. Kidneys: Normal in size and shape. No evidence of mass or hydronephrosis. Adrenal Glands: Unremarkable. Aorta: Atherosclerotic changes without aneurysmal dilation. Vascular calcifications. Bowel/Mesentery: The bowel loops are grossly unremarkable. The cecum and sigmoid colon have a normal configuration. Abdominal Wall: Intact. Retroperitoneum: No evidence of adenopathy in the retrocrural, para-aortic, or deep pelvic regions. Bladder: Decompressed by Orozco catheter. Reproductive Organs: No abnormal masses or calcifications seen. Trace pelvic free fluid. Inguinal: The inguinal region is unremarkable without evidence of adenopathy. Bony Structures: Prominent degenerative changes. CONCLUSION: 1. Moderate/large bilateral pleural effusions. 2. Small pericardial effusion. 3. No acute inflammatory process. 4. Minimal ascites. 5. Status post cholecystectomy. Electronically signed by: Khoi Silverio MD Board Certified Radiologist 03/27/2018 8:39 PM EST
[2018-03-27] MEDS: QUEtiapine 25 MG Tablet PO SCH (22:25)
[2018-03-28] MEDS: Sod Chloride 0.9% Inj 1,000 ML IV.CONT SCH ×2 (05:08→11:51)
[2018-03-28 05:11] LABS: INR 2.3 Ratio; Prothrombin Time 23.1 sec (9.8-11.6)
[2018-03-28] MEDS: Levothyroxine 50 MCG Tablet PO SCH (05:11)
[2018-03-28] MEDS: Amiodarone 200 MG Tablet PO SCH (09:15)
[2018-03-28] MEDS: Senna/Docusate Sodium 8.6/50 MG Tablet PO SCH ×2 (09:15→21:18)
[2018-03-28] MEDS: Metoprolol Tartrate 25 MG Tablet PO SCH ×2 (09:15→21:18)
[2018-03-28] MEDS: Lactobacillus Acidophilus/L. Spores Tablet PO SCH ×3 (09:16→17:02)
[2018-03-28] MEDS: Ascorbic Acid 500 MG Tablet PO SCH ×2 (09:16→21:19)
[2018-03-28] MEDS: Gabapentin 100 MG Capsule PO SCH ×2 (09:16→21:18)
[2018-03-28] MEDS: Nystatin 100,000 UNITS/GM Powder 15 GM Bottle TOPICAL SCH ×2 (09:16→21:27)
[2018-03-28 10:39] LABS: Albumin 2.3 g/dL (3.4-5.0); Calcium 8.5 mg/dL (8.5-10.1); Carbon Dioxide 28.4 meq/L (21.0-32.0); Phosphorus 5.3 mg/dL (2.5-4.9); Potassium 5.2 meq/L (3.5-5.1)
--- NOTE | 2018-03-28 12:36 | P.PN ---
Subjective Interval history: awake and alert, oriented to person no complains of abdominal pain today no nauea or vomiting - poor po states easily short of breath, at rest- appears comfortable, not tachypneic mejia in place- good urine output afebrile Physical Exam Vital signs: Vital Signs 03/27/18 14:03 03/27/18 16:00 03/27/18 20:00 Temperature 98 F 97.8 F Pulse Rate 77 81 Respiratory Rate 16 18 Blood Pressure 134/63 90/57 L Pulse Oximetry 96 97 99 03/28/18 00:00 03/28/18 00:11 03/28/18 00:12 Temperature 97.8 F Pulse Rate 73 Respiratory Rate 18 Blood Pressure 96/65 L Pulse Oximetry 100 95 95 03/28/18 04:20 03/28/18 08:00 03/28/18 09:30 Temperature Pulse Rate 80 Respiratory Rate 16 Blood Pressure 111/56 L Pulse Oximetry 96 99 97 Intake & Output 03/27/18 03/28/18 03/28/18 18:59 06:59 18:59 Intake Total 270 / 270 1000 / 1000 0 / 0 Output Total 325 / 325 200 / 200 Balance -55 / -55 800 / 800 0 / 0 Weight 135.6 kg Intake: IV 150 / 150 1000 / 1000 NS Inj 1,000 ML @ 84 mls/hr IV. 1000 / 1000 CONT .[id number] ANA Rx#:[id number] Diflucan 100 mg Premix Bag 50 50 / 50 ML @ 50 mls/hr IV.SIG Q24H ANA Rx#:[id number] Rocephin Inj 1,000 MG In NS Inj 100 / 100 100 ML @ 200 mls/hr IV.SIG Q24H ANA Rx#:[id number] Oral 120 / 120 0 / 0 Output: Urine 325 / 325 200 / 200 Other: Date of Last Bowel Movement 03/25/18 Narrative: GENERAL: NAD, A&Ox3, speech soft but clear HEAD: Normocephalic. NECK: Supple, trachea midline. No JVD. EYES: No scleral icterus. No injection or drainage. CARDIOVASCULAR: Regular rate and rhythm without murmurs, gallops, or rubs. RESPIRATORY: Breath sounds equal bilaterally. No accessory muscle use. GASTROINTESTINAL: Abdomen soft, + few bowel sounds, flabby, non tender MUSCULOSKELETAL: No cyanosis, or edema. moves all extremities spontaneoulsy, generalized weakness SKIN: Warm and dry. - Urinary Catheter Management Indwelling Urethral Catheter Cath placed during this visit: yes, but has since been removed by the nurse Reason for continuing: Chronic Urinary Retention Insertion date: 02/26/18 Insertion time: 16:00 Removal date: 02/26/18 Removal time: 15:30 Results - Labs CBC & Chem 7: 03/27/18 06:15 03/29/18 08:57 Laboratory Results - last 24 hr 03/28/18 03/28/18 04:15 09:50 PT 23.1 H INR 2.3 Sodium 126 L Potassium 5.2 H Chloride 87 L Carbon Dioxide 28.4 Anion Gap 11 BUN 48 H Creatinine 4.98 H Estimated GFR 12 L Random Glucose 111 H Calcium 8.5 Phosphorus 5.3 H Albumin 2.3 L - Imaging Impressions Abdomen/Pelvis CT 03/27/18 00:00 CONCLUSION: 1. Moderate/large bilateral pleural effusions. 2. Small pericardial effusion. 3. No acute inflammatory process. 4. Minimal ascites. 5. Status post cholecystectomy. Assessment and Plan - Assessment (1) Acute renal failure Code(s): N17.9 - Acute kidney failure, unspecified Status: Acute (2) Chronic kidney disease Code(s): N18.9 - Chronic kidney disease, unspecified Status: Acute (3) Shock Code(s): R57.9 - Shock, unspecified Status: Acute (4) BMI 50.0-59.9, adult Code(s): Z68.43 - Body mass index (BMI) 50-59.9, adult Status: Chronic (5) Diabetes mellitus Code(s): E11.9 - Type 2 diabetes mellitus without complications Status: Chronic - Plan 72-year-old male with a diagnosis of morbid obesity, depression, dementia, coronary artery disease, hypertension, dyslipidemia, diabetes, atrial fibrillation, hypothyroidism, peripheral neuropathy, chronic kidney disease stage IV, patient has a history of chronic opiate use. The patient was initially sent from [facility] facility where he was found to have altered mental status, low blood pressure and a heart rate in the 30s and was given atropine. Patient also had a low systolic blood pressure and needed IV pressors. Patient was also in acute kidney injury with elevated potassium which was not improving with treatment and needed hemodialysis. Acute kidney injury on chronic kidney disease stage IIIb- creatinine trending up Nephrology following - at one point was on HD - started on gentle IVF 03/27 Continue to monitor input and output Continue monitoring renal function Nephrology ff ff off Lasix Abdominal pain - - none today - CT of abdomen/pelivis- no acute findings Acute metabolic encephalopathy Resolved History of TIA Continue statin Continue Coumadin Depression Follow clinically Continue Seroquel Continue Cymbalta Peripheral neuropathy Continue gabapentin Dementia Mild at baseline Continue memantine 5 mg daily Atrial flutter/atrial fibrillation/CAD CHF with preserved EF Continue Coumadin Follow INR Continue amiodarone Continue Lopressor Cardiology following Lasix- held Obstructive sleep apnea Right-sided pleural effusion status post thoracentesis Continue BiPAP at night Respiratory status has stabilized compared to time of admit Patient is status post right-sided thoracentesis Pulmonology following- will d/w Dr. Bennett ? re tap Continue oxygen supplementation as needed Hypothyroidism Continue levothyroxine. Diabetes mellitus type 2 Follow blood sugars Diet controlled Diabetic diet Global weakness Continue PT/OT DVT prophylaxis Coumadin Discharge planning Patient will be discharged after clearance from nephrology and pulmonology is present Progress Note: Quality VTE Deep Vein Thrombosis/Pulmonary Embolism Present on Admission: No Procedures - Arterial Line Size (Gauge): 20 (5) Diabetes mellitus Qualifiers: Diabetes mellitus type: type 2 Diabetes mellitus alf insulin use: with medical terminologist use Diabetes mellitus complication status: with kidney complications Diabetes mellitus complication detail: with other kidney complication Qualified Code(s): E11.29 - Type 2 diabetes mellitus with other diabetic kidney complication; Z79.4 - exterminator (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
[2018-03-28] MEDS ORDERED: Sodium Polystyrene Sulfonate/Sorbitol Liq 15 GM/60 ML UDC PO ONE (13:15)
--- NOTE | 2018-03-28 15:30 | P.PNNP ---
Subjective Interval history: Patient seen in AM. Sleeping on CPAP, difficult to arouse but does not report any complaints. Creatinine continues to increase at 4.98. On gently hydration. <Hue Miller - Last Filed: 03/28/18 15:20> Physical Exam Vital signs: Vital Signs 03/27/18 16:00 03/27/18 20:00 03/28/18 00:00 Temperature 98 F 97.8 F 97.8 F Pulse Rate 77 81 73 Respiratory Rate 16 18 18 Blood Pressure 134/63 90/57 L 96/65 L Pulse Oximetry 97 99 100 03/28/18 00:11 03/28/18 00:12 03/28/18 04:20 Temperature Pulse Rate Respiratory Rate Blood Pressure Pulse Oximetry 95 95 96 03/28/18 08:00 03/28/18 09:30 03/28/18 12:00 Temperature 97.8 F Pulse Rate 80 82 Respiratory Rate 16 16 Blood Pressure 111/56 L 132/74 Pulse Oximetry 99 97 98 Intake & Output 03/27/18 03/28/18 03/28/18 18:59 06:59 18:59 Intake Total 270 / 270 1000 / 1000 0 / 0 Output Total 325 / 325 200 / 200 Balance -55 / -55 800 / 800 0 / 0 Weight 135.6 kg Intake: IV 150 / 150 1000 / 1000 NS Inj 1,000 ML @ 84 mls/hr IV. 1000 / 1000 CONT .[id number] ANA Rx#:[id number] Diflucan 100 mg Premix Bag 50 50 / 50 ML @ 50 mls/hr IV.SIG Q24H ANA Rx#:[id number] Rocephin Inj 1,000 MG In NS Inj 100 / 100 100 ML @ 200 mls/hr IV.SIG Q24H ANA Rx#:[id number] Oral 120 / 120 0 / 0 Output: Urine 325 / 325 200 / 200 Other: Date of Last Bowel Movement 03/25/18 Narrative: GENERAL: NAD, A&Ox3, speech soft but clear SKIN: Warm and dry. NECK: Supple, trachea midline. No JVD. EYES: No scleral icterus. No injection or drainage. CARDIOVASCULAR: Regular rate and rhythm without murmurs, gallops, or rubs. RESPIRATORY: Breath sounds equal bilaterally. No accessory muscle use. GASTROINTESTINAL: Abdomen soft, + BS MUSCULOSKELETAL: No cyanosis, or edema. - Urinary Catheter Management Indwelling Urethral Catheter Cath placed during this visit: yes, but has since been removed by the nurse Reason for continuing: Chronic Urinary Retention Insertion date: 02/26/18 Insertion time: 16:00 Removal date: 02/26/18 Removal time: 15:30 <Hue Miller - Last Filed: 03/28/18 15:20> Vital signs: Vital Signs 03/28/18 00:00 03/28/18 00:11 03/28/18 00:12 Temperature 97.8 F Pulse Rate 73 Respiratory Rate 18 Blood Pressure 96/65 L Pulse Oximetry 100 95 95 03/28/18 04:20 03/28/18 08:00 03/28/18 09:30 Temperature Pulse Rate 80 Respiratory Rate 16 Blood Pressure 111/56 L Pulse Oximetry 96 99 97 03/28/18 12:00 03/28/18 16:00 Temperature 97.8 F 97.6 F Pulse Rate 82 82 Respiratory Rate 16 16 Blood Pressure 132/74 119/50 L Pulse Oximetry 98 98 Intake & Output 03/28/18 03/28/18 03/29/18 06:59 18:59 06:59 Intake Total 1000 / 1000 150 / 150 225 / 225 Output Total 200 / 200 550 / 550 Balance 800 / 800 -400 / -400 225 / 225 Weight 135.6 kg Intake: IV 1000 / 1000 150 / 150 225 / 225 NS Inj 1,000 ML @ 84 mls/hr IV. 1000 / 1000 225 / 225 CONT .[id number] ANA Rx#:[id number] Diflucan 100 mg Premix Bag 50 50 / 50 ML @ 50 mls/hr IV.SIG Q24H ANA Rx#:[id number] Rocephin Inj 1,000 MG In NS Inj 100 / 100 100 ML @ 200 mls/hr IV.SIG Q24H ANA Rx#:[id number] Oral 0 / 0 Output: Urine 200 / 200 550 / 550 Other: Date of Last Bowel Movement 03/25/18 - Urinary Catheter Management Indwelling Urethral Catheter Cath placed during this visit: no <Laura Brantley - Last Filed: 03/28/18 21:12> Assessment and Plan - Assessment (1) Acute renal failure Code(s): N17.9 - Acute kidney failure, unspecified Status: Acute (2) Chronic kidney disease Code(s): N18.9 - Chronic kidney disease, unspecified Status: Acute (3) Shock Code(s): R57.9 - Shock, unspecified Status: Acute (4) BMI 50.0-59.9, adult Code(s): Z68.43 - Body mass index (BMI) 50-59.9, adult Status: Chronic (5) Diabetes mellitus Code(s): E11.9 - Type 2 diabetes mellitus without complications Status: Chronic Qualifiers: Diabetes mellitus type: type 2 Diabetes mellitus fdc insulin use: with intermediate frame tender use Diabetes mellitus complication status: with kidney complications Diabetes mellitus complication detail: with other kidney complication Qualified Code(s): E11.29 - Type 2 diabetes mellitus with other diabetic kidney complication; Z79.4 - supervisor intermediates (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 - Plan Patient with chronic kidney disease and develop PIERRE from sepsis Last Hemodialysis on 03/03 Creatinine has increased: 2.9 -> 3.2 -> 3.4 -> 3.7 ->4.5 ->4.9 UOP 525 ml/24 hours Possible increase in creatinine prerenal with over diuresis and poor intake Limited PO intake -will give trial of IVFs with NS at 50 ml/hr Continue to lasix. Follow serum Na: 126 Avoid nephrotoxins. Maintain accurate I+O, has indwelling Orozco catheter. Follow the urine out put and BMP. Hyperkalemia, Kayexalate ordered. Labs in AM With increase in creatinine and urinary output patient may need HD again Dr. Leal to follow patient in AM <Hue Miller - Last Filed: 03/28/18 15:20> - Assessment (1) Acute renal failure Code(s): N17.9 - Acute kidney failure, unspecified Status: Acute (2) Chronic kidney disease Code(s): N18.9 - Chronic kidney disease, unspecified Status: Acute (3) Shock Code(s): R57.9 - Shock, unspecified Status: Acute (4) BMI 50.0-59.9, adult Code(s): Z68.43 - Body mass index (BMI) 50-59.9, adult Status: Chronic (5) Diabetes mellitus Code(s): E11.9 - Type 2 diabetes mellitus without complications Status: Chronic Qualifiers: Diabetes mellitus type: type 2 Diabetes mellitus intermediate frame tender insulin use: with intermediate frame tender use Diabetes mellitus complication status: with kidney complications Diabetes mellitus complication detail: with other kidney complication Qualified Code(s): E11.29 - Type 2 diabetes mellitus with other diabetic kidney complication; Z79.4 - assisted (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 - Plan Patient seen and examine, agree with above. Creatinine continue to increase, Lasix has been stopped, on gentle IVF. May need Dialysis again, D/W the patient. <Laura Brantley - Last Filed: 03/28/18 21:12> Procedures - Arterial Line Size (Gauge): 20 <Hue Miller - Last Filed: 03/28/18 15:20>
--- NOTE | 2018-03-28 19:45 | P.PNPL ---
Subjective Interval history: 72 YOWM with RF, renal insuff On Nasal cannula Feels tired at the end of the day No CP No fever Denies abd pain Physical Exam Vital signs: Vital Signs 03/27/18 20:00 03/28/18 00:00 03/28/18 00:11 Temperature 97.8 F 97.8 F Pulse Rate 81 73 Respiratory Rate 18 18 Blood Pressure 90/57 L 96/65 L Pulse Oximetry 99 100 95 03/28/18 00:12 03/28/18 04:20 03/28/18 08:00 Temperature Pulse Rate 80 Respiratory Rate 16 Blood Pressure 111/56 L Pulse Oximetry 95 96 99 03/28/18 09:30 03/28/18 12:00 03/28/18 16:00 Temperature 97.8 F 97.6 F Pulse Rate 82 82 Respiratory Rate 16 16 Blood Pressure 132/74 119/50 L Pulse Oximetry 97 98 98 Intake & Output 03/28/18 03/28/18 03/29/18 06:59 18:59 06:59 Intake Total 1000 / 1000 150 / 150 225 / 225 Output Total 200 / 200 550 / 550 Balance 800 / 800 -400 / -400 225 / 225 Weight 135.6 kg Intake: IV 1000 / 1000 150 / 150 225 / 225 NS Inj 1,000 ML @ 84 mls/hr IV. 1000 / 1000 225 / 225 CONT .[id number] ANA Rx#:[id number] Diflucan 100 mg Premix Bag 50 50 / 50 ML @ 50 mls/hr IV.SIG Q24H ANA Rx#:[id number] Rocephin Inj 1,000 MG In NS Inj 100 / 100 100 ML @ 200 mls/hr IV.SIG Q24H ANA Rx#:[id number] Oral 0 / 0 Output: Urine 200 / 200 550 / 550 Other: Date of Last Bowel Movement 03/25/18 GENERAL: Obese WM, NAD SKIN: Warm and dry. HEAD: Normocephalic. EYES: No scleral icterus. No injection or drainage. NECK: Supple, trachea midline. No JVD or lymphadenopathy. CARDIOVASCULAR: Regular rate and rhythm without murmurs, gallops, or rubs. RESPIRATORY: Breath sounds equal bilaterally. No accessory muscle use. GASTROINTESTINAL: Abdomen soft, non-tender, nondistended. MUSCULOSKELETAL: No cyanosis, or edema. BACK: Nontender without obvious deformity. No CVA tenderness. - Urinary Catheter Management Indwelling Urethral Catheter Cath placed during this visit: yes, but has since been removed by the nurse Reason for continuing: Chronic Urinary Retention Insertion date: 02/26/18 Insertion time: 16:00 Removal date: 02/26/18 Removal time: 15:30 Assessment and Plan - Plan IMPRESSION: Resp Failure--improved renal Failure HTN ?MIRTA PLAN: Supplement 02 with NC CPAP at night Aerosol nebs Monitor Lytes Procedures - Arterial Line Size (Gauge): 20
[2018-03-28] MEDS: QUEtiapine 25 MG Tablet PO SCH (21:18)
[2018-03-29] MEDS: Levothyroxine 50 MCG Tablet PO SCH (05:26)
[2018-03-29] MEDS: Sod Chloride 0.9% Inj 1,000 ML IV.CONT SCH ×2 (05:26→21:42)
[2018-03-29 09:44] LABS: Calcium 8.4 mg/dL (8.5-10.1); Carbon Dioxide 26.8 meq/L (21.0-32.0)
[2018-03-29 09:46] LABS: Potassium 6.4 meq/L (3.5-5.1)
[2018-03-29] MEDS: Senna/Docusate Sodium 8.6/50 MG Tablet PO SCH ×2 (09:58→21:41)
[2018-03-29] MEDS: Ascorbic Acid 500 MG Tablet PO SCH ×2 (09:58→21:41)
[2018-03-29] MEDS: Metoprolol Tartrate 25 MG Tablet PO SCH ×2 (09:58→21:41)
[2018-03-29] MEDS: Gabapentin 100 MG Capsule PO SCH ×2 (09:58→21:41)
[2018-03-29] MEDS: Lactobacillus Acidophilus/L. Spores Tablet PO SCH ×3 (09:58→17:22)
[2018-03-29] MEDS: Amiodarone 200 MG Tablet PO SCH (09:58)
[2018-03-29] MEDS: Nystatin 100,000 UNITS/GM Powder 15 GM Bottle TOPICAL SCH ×2 (09:59→21:42)
--- NOTE | 2018-03-29 13:50 | P.PN ---
Subjective Interval history: on BiPap 35% awake and alert states easily short of breath denies any pain at present Physical Exam Vital signs: Vital Signs 03/28/18 16:00 03/28/18 20:00 03/29/18 00:00 Temperature 97.6 F 98.0 F 97.9 F Pulse Rate 82 82 73 Respiratory Rate 16 17 18 Blood Pressure 119/50 L 109/54 L 140/58 L Pulse Oximetry 98 98 97 03/29/18 00:20 03/29/18 01:00 03/29/18 03:42 Temperature Pulse Rate Respiratory Rate Blood Pressure Pulse Oximetry 92 L 92 L 96 03/29/18 07:46 03/29/18 08:00 03/29/18 12:00 Temperature 98.2 F 97.4 F L Pulse Rate 75 72 Respiratory Rate 16 19 Blood Pressure 116/57 L 147/56 H Pulse Oximetry 97 95 96 03/29/18 12:10 Temperature Pulse Rate Respiratory Rate Blood Pressure Pulse Oximetry 97 Intake & Output 03/28/18 03/29/18 03/29/18 18:59 06:59 18:59 Intake Total 150 / 150 465 / 465 Output Total 550 / 550 350 / 350 Balance -400 / -400 115 / 115 Weight 139.5 kg Intake: IV 150 / 150 225 / 225 NS Inj 1,000 ML @ 84 mls/hr IV. 225 / 225 CONT .[id number] ANA Rx#:[id number] Diflucan 100 mg Premix Bag 50 50 / 50 ML @ 50 mls/hr IV.SIG Q24H ANA Rx#:[id number] Rocephin Inj 1,000 MG In NS Inj 100 / 100 100 ML @ 200 mls/hr IV.SIG Q24H ANA Rx#:[id number] Oral 0 / 0 240 / 240 Output: Urine 550 / 550 Urine Amount (Catheter) 350 / 350 Indwelling Urethral Catheter 350 / 350 Other: Date of Last Bowel Movement 03/25/18 Narrative: GENERAL: NAD, A&Ox3, speech soft but clear HEAD: Normocephalic. NECK: Supple, trachea midline. No JVD. EYES: No scleral icterus. No injection or drainage. CARDIOVASCULAR: Regular rate and rhythm RESPIRATORY: decreased breath sounds GASTROINTESTINAL: Abdomen soft, + few bowel sounds, flabby, non tender MUSCULOSKELETAL: No cyanosis, or edema. moves all extremities spontaneoulsy, generalized weakness + mejia in place SKIN: Warm and dry. - Urinary Catheter Management Indwelling Urethral Catheter Cath placed during this visit: yes, but has since been removed by the nurse Reason for continuing: Chronic Urinary Retention Insertion date: 02/26/18 Insertion time: 16:00 Removal date: 02/26/18 Removal time: 15:30 Results - Labs CBC & Chem 7: 03/30/18 06:38 03/30/18 06:38 Laboratory Results - last 24 hr 03/29/18 08:57 Sodium 124 L* Potassium 6.4 H D Chloride 87 L Carbon Dioxide 26.8 Anion Gap 10 BUN 51 H Creatinine 5.26 H Estimated GFR 11 L Random Glucose 93 Calcium 8.4 L Assessment and Plan - Assessment (1) Acute renal failure Code(s): N17.9 - Acute kidney failure, unspecified Status: Acute (2) Chronic kidney disease Code(s): N18.9 - Chronic kidney disease, unspecified Status: Acute (3) Shock Code(s): R57.9 - Shock, unspecified Status: Acute (4) BMI 50.0-59.9, adult Code(s): Z68.43 - Body mass index (BMI) 50-59.9, adult Status: Chronic (5) Diabetes mellitus Code(s): E11.9 - Type 2 diabetes mellitus without complications Status: Chronic - Plan 72-year-old male with a diagnosis of morbid obesity, depression, dementia, coronary artery disease, hypertension, dyslipidemia, diabetes, atrial fibrillation, hypothyroidism, peripheral neuropathy, chronic kidney disease stage IV, patient has a history of chronic opiate use. The patient was initially sent from [facility] where he was found to have altered mental status, low blood pressure and a heart rate in the 30s and was given atropine. Patient also had a low systolic blood pressure and needed IV pressors. Patient was also in acute kidney injury with elevated potassium which was not improving with treatment and needed hemodialysis. Acute kidney injury on chronic kidney disease stage IIIb- creatinine trending up Nephrology following - at one point was on HD - started on gentle IVF 03/27 Continue to monitor input and output - + UO= grossly clear Continue monitoring renal function- today pending Nephrology ff ff- may require HD off Lasix Atrial flutter/atrial fibrillation/CAD CHF with preserved EF Continue Coumadin Follow INR Continue amiodarone Continue Lopressor Cardiology following Lasix- held due to wrosening reanl functions Obstructive sleep apnea Right-sided pleural effusion status post thoracentesis Continue BiPAP at night Respiratory status has stabilized compared to time of admit Patient is status post right-sided thoracentesis Pulmonology following- will d/w Dr. Bennett Continue oxygen supplementation as needed Abdominal pain - no complaints today - but poor po appetitie - CT of abdomen/pelvis- no acute findings Acute metabolic encephalopathy Resolved History of TIA Continue statin Continue Coumadin Depression Follow clinically Continue Seroquel Continue Cymbalta Peripheral neuropathy Continue gabapentin Dementia Mild at baseline Continue memantine 5 mg daily Hypothyroidism Continue levothyroxine. Diabetes mellitus type 2 Follow blood sugars Diet controlled Diabetic diet Global weakness Continue PT/OT DVT prophylaxis Coumadin Discharge planning - will need SNF Progress Note: Quality VTE Deep Vein Thrombosis/Pulmonary Embolism Present on Admission: No Procedures - Arterial Line Size (Gauge): 20 (5) Diabetes mellitus Qualifiers: Diabetes mellitus type: type 2 Diabetes mellitus manager long term care insulin use: with manager long term care use Diabetes mellitus complication status: with kidney complications Diabetes mellitus complication detail: with other kidney complication Qualified Code(s): E11.29 - Type 2 diabetes mellitus with other diabetic kidney complication; Z79.4 - termite treater helper (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
[2018-03-29] MEDS ORDERED: RESP: Albuterol Concentrated 2.5 MG/0.5 ML Neb NEB ONE (15:35)
[2018-03-29] MEDS ORDERED: Dextrose 50% in Water 50 ML Vial IV.PUSH ONE (15:35)
[2018-03-29] MEDS ORDERED: Sodium Polystyrene Sulfonate/Sorbitol Liq 15 GM/60 ML UDC PO ONE (15:35)
--- NOTE | 2018-03-29 15:58 | P.PNNP ---
Subjective Interval history: Patient in congestive heart failure on BiPAP worsening renal function Physical Exam Vital signs: Vital Signs 03/28/18 16:00 03/28/18 20:00 03/29/18 00:00 Temperature 97.6 F 98.0 F 97.9 F Pulse Rate 82 82 73 Respiratory Rate 16 17 18 Blood Pressure 119/50 L 109/54 L 140/58 L Pulse Oximetry 98 98 97 03/29/18 00:20 03/29/18 01:00 03/29/18 03:42 Temperature Pulse Rate Respiratory Rate Blood Pressure Pulse Oximetry 92 L 92 L 96 03/29/18 07:46 03/29/18 08:00 03/29/18 12:00 Temperature 98.2 F 97.4 F L Pulse Rate 75 72 Respiratory Rate 16 19 Blood Pressure 116/57 L 147/56 H Pulse Oximetry 97 95 96 03/29/18 12:10 Temperature Pulse Rate Respiratory Rate Blood Pressure Pulse Oximetry 97 Intake & Output 03/28/18 03/29/18 03/29/18 18:59 06:59 18:59 Intake Total 150 / 150 465 / 465 Output Total 550 / 550 350 / 350 Balance -400 / -400 115 / 115 Weight 139.5 kg Intake: IV 150 / 150 225 / 225 NS Inj 1,000 ML @ 84 mls/hr IV. 225 / 225 CONT .[id number] ANA Rx#:[id number] Diflucan 100 mg Premix Bag 50 50 / 50 ML @ 50 mls/hr IV.SIG Q24H ANA Rx#:[id number] Rocephin Inj 1,000 MG In NS Inj 100 / 100 100 ML @ 200 mls/hr IV.SIG Q24H ANA Rx#:[id number] Oral 0 / 0 240 / 240 Output: Urine 550 / 550 Urine Amount (Catheter) 350 / 350 Indwelling Urethral Catheter 350 / 350 Other: Date of Last Bowel Movement 03/25/18 Narrative: GENERAL: NAD, A&Ox3, speech soft but clear HEAD: Normocephalic. NECK: Supple, trachea midline. No JVD. EYES: No scleral icterus. No injection or drainage. CARDIOVASCULAR: S1-S2 irregular RESPIRATORY: decreased breath sounds GASTROINTESTINAL: Abdomen soft, + few bowel sounds, flabby, non tender MUSCULOSKELETAL: No cyanosis, or edema. moves all extremities spontaneously, generalized weakness + mejia in place SKIN: Warm and dry. - Urinary Catheter Management Indwelling Urethral Catheter Cath placed during this visit: yes, but has since been removed by the nurse Reason for continuing: Chronic Urinary Retention Insertion date: 02/26/18 Insertion time: 16:00 Removal date: 02/26/18 Removal time: 15:30 Assessment and Plan - Assessment (1) Acute renal failure Code(s): N17.9 - Acute kidney failure, unspecified Status: Acute (2) Chronic kidney disease Code(s): N18.9 - Chronic kidney disease, unspecified Status: Acute (3) Shock Code(s): R57.9 - Shock, unspecified Status: Acute (4) BMI 50.0-59.9, adult Code(s): Z68.43 - Body mass index (BMI) 50-59.9, adult Status: Chronic (5) Diabetes mellitus Code(s): E11.9 - Type 2 diabetes mellitus without complications Status: Chronic Qualifiers: Diabetes mellitus type: type 2 Diabetes mellitus intermediate card tender insulin use: with senior care use Diabetes mellitus complication status: with kidney complications Diabetes mellitus complication detail: with other kidney complication Qualified Code(s): E11.29 - Type 2 diabetes mellitus with other diabetic kidney complication; Z79.4 - penitentiary (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 - Plan Patient has persistent azotemia worsening hyperkalemia I ordered calcium, D50, insulin Gave order for Lasix Urine output has declined Patient has congestive heart failure/pulmonary edema on BiPAP Discussed dialysis he is on Coumadin will hold Coumadin dose today Repeat INR Vas-Cath and surgery in a.m Monitor potassium I will repeat the echocardiogram as he has persistent congestive heart failure improved perfusion to kidneys With bilateral pleural effusions repeat chest x-ray. Procedures - Arterial Line Size (Gauge): 20
[2018-03-29] MEDS ORDERED: Calcium Gluconate Inj 1 GM in Sodium Chlor 0.9% Inj 100 ML IV.SIG ONE (16:00)
[2018-03-29] MEDS ORDERED: Sod Chloride 0.9% Inj 1,000 ML OTHER PRN ×2 (16:05)
[2018-03-29] MEDS ORDERED: Acetaminophen 325 MG Tablet PO PRN (16:05)
[2018-03-29] MEDS ORDERED: Sod Chloride 0.9% Inj 1,000 ML IV.CONT PRN (16:05)
[2018-03-29] MEDS ORDERED: Gelatin 12 MM/7 MM Topical Foam TOPICAL PRN (16:05)
--- NOTE | 2018-03-29 20:59 | P.PNPL ---
Subjective Interval history: 72 YOWM with RF, renal insuff Feels tired at the end of the day No CP No fever Sleeping, using CPAP Physical Exam Vital signs: Vital Signs 03/29/18 00:00 03/29/18 00:20 03/29/18 01:00 Temperature 97.9 F Pulse Rate 73 Respiratory Rate 18 Blood Pressure 140/58 L Pulse Oximetry 97 92 L 92 L 03/29/18 03:42 03/29/18 07:46 03/29/18 08:00 Temperature 98.2 F Pulse Rate 75 Respiratory Rate 16 Blood Pressure 116/57 L Pulse Oximetry 96 97 95 03/29/18 12:00 03/29/18 12:10 03/29/18 16:00 Temperature 97.4 F L 96.9 F L Pulse Rate 72 71 Respiratory Rate 19 18 Blood Pressure 147/56 H 124/58 L Pulse Oximetry 96 97 97 03/29/18 17:45 Temperature Pulse Rate 72 Respiratory Rate 18 Blood Pressure Pulse Oximetry Intake & Output 03/29/18 03/29/18 03/30/18 06:59 18:59 06:59 Intake Total 465 / 465 510 / 510 50 / 50 Output Total 350 / 350 125 / 125 Balance 115 / 115 385 / 385 50 / 50 Weight 139.5 kg Intake: IV 225 / 225 210 / 210 50 / 50 NS Inj 1,000 ML @ 84 mls/hr IV. 225 / 225 CONT .[id number] [facility] Rx#:[id number] Calcium Gluconate Inj 1 GM In 110 / 110 NS Inj 100 ML @ 110 mls/hr IV. SIG ONCE ONE Rx#:[id number] Diflucan 100 mg Premix Bag 50 50 / 50 ML @ 50 mls/hr IV.SIG Q24H [facility] Rx#:[id number] Rocephin Inj 1,000 MG In NS Inj 100 / 100 100 ML @ 200 mls/hr IV.SIG Q24H [facility] Rx#:[id number] Oral 240 / 240 300 / 300 Output: Urine 125 / 125 Urine Amount (Catheter) 350 / 350 Indwelling Urethral Catheter 350 / 350 Other: Date of Last Bowel Movement 03/25/18 # Bowel Movements 0 GENERAL: WBWn NAD SKIN: Warm and dry. HEAD: Normocephalic. EYES: No scleral icterus. No injection or drainage. NECK: Supple, trachea midline. No JVD or lymphadenopathy. CARDIOVASCULAR: Regular rate and rhythm without murmurs, gallops, or rubs. RESPIRATORY: Breath sounds equal bilaterally. No accessory muscle use. GASTROINTESTINAL: Abdomen soft, non-tender, nondistended. MUSCULOSKELETAL: No cyanosis, or edema. BACK: Nontender without obvious deformity. No CVA tenderness. - Urinary Catheter Management Indwelling Urethral Catheter Cath placed during this visit: yes, but has since been removed by the nurse Reason for continuing: Chronic Urinary Retention Insertion date: 02/26/18 Insertion time: 16:00 Removal date: 02/26/18 Removal time: 15:30 Assessment and Plan - Plan IMPRESSION: Resp Failure--improved renal Failure HTN ?MIRTA PLAN: Supplement 02 with NC CPAP at night Aerosol nebs Monitor Lytes Procedures - Arterial Line Size (Gauge): 20
--- NOTE | 2018-03-29 21:15 | XR ---
EXAM DATE: 03/29/2018 9:10 PM EST AGE/SEX: 73 years / Male INDICATIONS: CHF. CLINICAL DATA: This is the patient's subsequent encounter. Patient reports that signs and symptoms h ave been present for 1 month and indicates a pain score of 5/10. MEDICAL/SURGICAL HISTORY: . Renal failure. Shock. Morbid obesity. TIA. DM type 2. Dementia. Dep ression. Coronary artery disease. HTN. Dyslipidemia. A-fib. Hypothyroidism. Neuropathy. None. [place] [facility] [place]. . FINDINGS: A single AP portable semierect view of the chest was obtained and demonstrates mild to moderate cardi omegaly. Hazy opacity is present throughout both lungs with blunting of both costophrenic angles. The bony thorax appears intact. CONCLUSION: No significant change. The findings remain consistent with congestive heart failure. Electronically signed by: Yosi Mccann MD Board Certified Radiologist 03/29/2018 9:13 PM EST
[2018-03-29] MEDS: QUEtiapine 25 MG Tablet PO SCH (21:42)
[2018-03-30] MEDS: Sod Chloride 0.9% Inj 1,000 ML IV.CONT SCH ×2 (04:09→18:01)
[2018-03-30] MEDS: Levothyroxine 50 MCG Tablet PO SCH (05:52)
[2018-03-30 07:07] LABS: Baso # (Auto) 0.1 th/mm3 (0.0-0.2); Baso % (Auto) 0.7 % (0.0-2.0); Eos # (Auto) 0.2 th/mm3 (0.0-0.4); Eos % (Auto) 2.3 % (0.0-4.0); Hematocrit 23.6 % (39.0-51.0); Hemoglobin 8.1 gm/dL (13.0-17.0); Lymph # (Auto) 0.8 th/mm3 (1.0-4.8); Lymph % (Auto) 9.1 % (9.0-44.0); Mean Corpuscular HGB Conc 34.5 % (32.0-36.0); Mean Corpuscular Volume 84.2 fL (80.0-100.0); Mono # (Auto) 0.7 th/mm3 (0.0-0.9); Mono % (Auto) 8.3 % (0.0-8.0); Neut # (Auto) 6.9 th/mm3 (1.8-7.7); Neut % (Auto) 79.6 % (16.0-70.0); Platelet Count 214 th/mm3 (150-450); Red Cell Distribution Width 14.7 % (11.6-17.2); White Blood Count 8.7 th/mm3 (4.0-11.0)
[2018-03-30 07:11] LABS: INR 3.2 Ratio; Prothrombin Time 32.2 sec (9.8-11.6)
[2018-03-30 07:34] LABS: Albumin 2.1 g/dL (3.4-5.0); Anion Gap 10 meq/L (5-15); Aspartate Aminotransferase 16 U/L (15-37); Blood Urea Nitrogen 53 mg/dL (7-18); Calcium 8.1 mg/dL (8.5-10.1); Carbon Dioxide 26.9 meq/L (21.0-32.0); Chloride 89 meq/L (98-107); Glomerular Filtration Rate 10 mL/min (>89); Glucose,Random 83 mg/dL (74-106); Potassium 4.5 meq/L (3.5-5.1); Sodium 126 meq/L (136-145)
[2018-03-30 07:36] LABS: Alanine Aminotransferase 12 U/L (12-78)
[2018-03-30 07:38] LABS: Alkaline Phosphatase 128 U/L (45-117); Total Protein 6.6 g/dL (6.4-8.2)
[2018-03-30 07:47] LABS: Hepatitits B Surface Antigen Nonreactive (Nonreactive)
[2018-03-30 08:16] LABS: Hepatitis A IgM Antibody Nonreactive (Nonreactive)
[2018-03-30] MEDS: Gabapentin 100 MG Capsule PO SCH ×2 (09:30→22:26)
[2018-03-30] MEDS: Metoprolol Tartrate 25 MG Tablet PO SCH ×2 (09:30→22:26)
[2018-03-30] MEDS: Ascorbic Acid 500 MG Tablet PO SCH ×2 (09:30→22:26)
[2018-03-30] MEDS: Senna/Docusate Sodium 8.6/50 MG Tablet PO SCH ×2 (09:30→22:25)
[2018-03-30] MEDS: Lactobacillus Acidophilus/L. Spores Tablet PO SCH ×3 (09:30→18:00)
[2018-03-30] MEDS: Amiodarone 200 MG Tablet PO SCH (09:30)
[2018-03-30] MEDS: Nystatin 100,000 UNITS/GM Powder 15 GM Bottle TOPICAL SCH ×2 (09:31→22:26)
[2018-03-30] MEDS ORDERED: *Heparin 10,000 UNITS/10 ML Vial Periprocedural ONLY ONE (10:26)
[2018-03-30] MEDS ORDERED: Lidocaine PF 1% Inj 30 ML Vial ONE (10:26)
[2018-03-30] MEDS ORDERED: Heparin Central Flush 100 UNIT/ML 5 ML Vial IV.FLUSH PRN (11:12)
--- NOTE | 2018-03-30 11:43 | IR ---
EXAM DATE: 03/30/2018 11:24 AM EST AGE/SEX: 73 years / Male INDICATIONS: Patient in multiple organ failure. Needs dialysis. CLINICAL DATA: This is the patient's initial encounter. Patient reports that signs and symptoms have been present for 1 month and indicates a pain score of 2/10. MEDICAL/SURGICAL HISTORY: Congestive heart failure. Renal failure, chronic. Diabetes. AMS, C AD Tonsillectomy. heart cath COMPARISON: . FLUORO TIME (min): 0.23 IMAGE SERIES: 1 RADIATION DOSE: 0.021001 mGy2 CAK ACCESS SITE: Right internal jugular vein DEVICE(S): 14 Yi double lumen 15 cm Schon catheter . . PROCEDURE : 1. Ultrasound guided venipuncture. 2. Fluoroscopic guidance. 3. Central line placement. The risks, benefits and alternatives to the procedure were explained and verbal and written consent w as obtained. The site was prepped in sterile fashion. Full sterile technique was used, including ca p, mask, sterile gloves and gown and a large sterile sheet. Hand hygiene and 2% chlorhexidine prep w as utilized per protocol for cutaneous antisepsis with appropriate dry time for site. Sterile gel an d sterile probe cover were utilized for ultrasound guidance. The skin and subcutaneous tissues were infiltrated with local anesthetic solution. A suitable site a andrea the vein was selected with ultrasound and fluoroscopic guidance. A small incision was made. Th e vein was accessed under direct ultrasound visualization using the micropuncture technique. The melany ropuncture set was exchanged for a 0.035 wire. The tract was dilated. The catheter was advanced int o position under direct fluoroscopic visualization, and was advanced with the tip at the junction of the superior vena cava and rt atrium. The catheter was fixed in place with suture and a sterile dres sing was applied. The patient tolerated the procedure well and there were no complications. CONCLUSION: 1. Uncomplicated line placement as above. Electronically signed by: Abelardo Montoya MD Board Certified Radiologist 03/30/2018 11:41 AM RENETTA Alvarez
--- NOTE | 2018-03-30 14:43 | P.PN ---
Subjective Interval history: seen during HD 4 pm feeling better no pain complains patient restarted on HD today cdue to worsening renal fucntions and shortness of breath Physical Exam Vital signs: Vital Signs 03/29/18 16:00 03/29/18 17:45 03/29/18 20:00 Temperature 96.9 F L 98.2 F Pulse Rate 71 72 77 Respiratory Rate 18 18 20 Blood Pressure 124/58 L 118/52 L Pulse Oximetry 97 98 03/30/18 00:00 03/30/18 07:00 03/30/18 08:00 Temperature 98.0 F 97.3 F L Pulse Rate 74 74 Respiratory Rate 20 16 Blood Pressure 121/69 114/49 L Pulse Oximetry 98 97 97 03/30/18 13:00 Temperature 98.1 F Pulse Rate 79 Respiratory Rate 17 Blood Pressure 147/96 H Pulse Oximetry 98 Intake & Output 03/29/18 03/30/18 03/30/18 18:59 06:59 18:59 Intake Total 510 / 510 1410 / 1410 Output Total 125 / 125 350 / 350 Balance 385 / 385 1060 / 1060 Weight 142.6 kg Intake: IV 210 / 210 1050 / 1050 NS Inj 1,000 ML @ 50 mls/hr IV. 1000 / 1000 CONT .Q20H [facility] Rx#:[id number] Calcium Gluconate Inj 1 GM In 110 / 110 NS Inj 100 ML @ 110 mls/hr IV. SIG ONCE ONE Rx#:[id number] Diflucan 100 mg Premix Bag 50 50 / 50 ML @ 50 mls/hr IV.SIG Q24H [facility] Rx#:[id number] Rocephin Inj 1,000 MG In NS Inj 100 / 100 100 ML @ 200 mls/hr IV.SIG Q24H [facility] Rx#:[id number] Oral 300 / 300 360 / 360 Output: Urine 125 / 125 300 / 300 Urine Amount (Catheter) 50 / 50 Indwelling Urethral Catheter 50 / 50 Other: Date of Last Bowel Movement 03/25/18 # Bowel Movements 0 Narrative: GENERAL: no acute distress, speech clear SKIN: Warm and dry. HEAD: Normocephalic. EYES: No scleral icterus. No injection or drainage. NECK: Supple, trachea midline. No JVD or lymphadenopathy. right neck VAS cath in place CARDIOVASCULAR: S1-S2 is irregular RESPIRATORY: Breath sounds diminished at base s GASTROINTESTINAL: Abdomen soft, non-tender, nondistended. EXTREMITIES: Diminished pulses NEUROLOGICAL: Awake, alert, and oriented x 3. Non-focal. - Urinary Catheter Management Indwelling Urethral Catheter Cath placed during this visit: yes, but has since been removed by the nurse Reason for continuing: Chronic Urinary Retention Insertion date: 02/26/18 Insertion time: 16:00 Removal date: 02/26/18 Removal time: 15:30 Results - Labs CBC & Chem 7: 03/30/18 06:38 03/30/18 06:38 Laboratory Results - last 24 hr 03/29/18 03/30/18 03/30/18 18:56 06:08 06:38 WBC RBC Hgb Hct MCV MCH MCHC RDW Plt Count MPV Neut % (Auto) Lymph % (Auto) Brule % (Auto) Eos % (Auto) Baso % (Auto) Neut # (Auto) Lymph # (Auto) Brule # (Auto) Eos # (Auto) Baso # (Auto) WBC Differential Differential Comment PT INR Sodium 126 L Potassium 4.7 D 4.5 Chloride 89 L Carbon Dioxide 26.9 Anion Gap 10 BUN 53 H Creatinine 5.52 H Estimated GFR 10 L Random Glucose 83 Calcium 8.1 L Total Bilirubin 0.4 AST 16 ALT 12 Alkaline Phosphatase 128 H Total Protein 6.6 D Albumin 2.1 L Hepatitis A IgM Ab Nonreactive Hep Bs Antigen Nonreactive Hep B Core IgM Ab Nonreactive Hep C IgG Ab Nonreactive 03/30/18 03/30/18 06:38 06:38 WBC 8.7 RBC 2.80 L Hgb 8.1 L Hct 23.6 L MCV 84.2 MCH 29.0 MCHC 34.5 RDW 14.7 Plt Count 214 MPV 8.0 Neut % (Auto) 79.6 H Lymph % (Auto) 9.1 Brule % (Auto) 8.3 H Eos % (Auto) 2.3 Baso % (Auto) 0.7 Neut # (Auto) 6.9 Lymph # (Auto) 0.8 L Brule # (Auto) 0.7 Eos # (Auto) 0.2 Baso # (Auto) 0.1 WBC Differential . Differential Comment Auto diff final PT 32.2 H INR 3.2 Sodium Potassium Chloride Carbon Dioxide Anion Gap BUN Creatinine Estimated GFR Random Glucose Calcium Total Bilirubin AST ALT Alkaline Phosphatase Total Protein Albumin Hepatitis A IgM Ab Hep Bs Antigen Hep B Core IgM Ab Hep C IgG Ab - Imaging Impressions Chest X-Ray 03/29/18 00:00 CONCLUSION: No significant change. The findings remain consistent with congestive heart failure. Catheter Placement 03/30/18 08:00 CONCLUSION: 1. Uncomplicated line placement as above. Assessment and Plan - Assessment (1) Acute renal failure Code(s): N17.9 - Acute kidney failure, unspecified Status: Acute (2) Chronic kidney disease Code(s): N18.9 - Chronic kidney disease, unspecified Status: Acute (3) Shock Code(s): R57.9 - Shock, unspecified Status: Acute (4) BMI 50.0-59.9, adult Code(s): Z68.43 - Body mass index (BMI) 50-59.9, adult Status: Chronic (5) Diabetes mellitus Code(s): E11.9 - Type 2 diabetes mellitus without complications Status: Chronic - Plan 72-year-old male with a diagnosis of morbid obesity, depression, dementia, coronary artery disease, hypertension, dyslipidemia, diabetes, atrial fibrillation, hypothyroidism, peripheral neuropathy, chronic kidney disease stage IV, patient has a history of chronic opiate use. The patient was initially sent from [facility] where he was found to have altered mental status, low blood pressure and a heart rate in the 30s and was given atropine. Patient also had a low systolic blood pressure and needed IV pressors. Patient was also in acute kidney injury with elevated potassium which was not improving with treatment and needed hemodialysis. Acute kidney injury on chronic kidney disease stage IIIb- creatinine trending up Nephrology following - at one point was on HD Continue to monitor input and output - + UO= grossly clear Crenal functioning worsening with shortness of breath - Hemodialysis restarted today 03/30 - Dr. chang ff Atrial flutter/atrial fibrillation/CAD CHF with preserved EF Continue Coumadin Follow INR Continue amiodarone Continue Lopressor Cardiology following HD Obstructive sleep apnea Right-sided pleural effusion status post thoracentesis Continue BiPAP at night Respiratory status has stabilized compared to time of admit Patient is status post right-sided thoracentesis Pulmonology following- will d/w Dr. Bennett Continue oxygen supplementation as needed Abdominal pain - no complaints today - but poor po appetitie - CT of abdomen/pelvis- no acute findings Acute metabolic encephalopathy Resolved History of TIA Continue statin Continue Coumadin Depression Follow clinically Continue Seroquel Continue Cymbalta Peripheral neuropathy Continue gabapentin Dementia Mild at baseline Continue memantine 5 mg daily Hypothyroidism Continue levothyroxine. Diabetes mellitus type 2 Follow blood sugars Diet controlled Diabetic diet Global weakness Continue PT/OT DVT prophylaxis Coumadin Discharge planning - will need SNF Progress Note: Quality VTE Deep Vein Thrombosis/Pulmonary Embolism Present on Admission: No Procedures - Arterial Line Size (Gauge): 20 (5) Diabetes mellitus Qualifiers: Diabetes mellitus type: type 2 Diabetes mellitus [address] insulin use: with custodial use Diabetes mellitus complication status: with kidney complications Diabetes mellitus complication detail: with other kidney complication Qualified Code(s): E11.29 - Type 2 diabetes mellitus with other diabetic kidney complication; 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
[2018-03-30] MEDS: Albumin Human 25% Inj 100 ML IV.SIG PRN ×2 (15:06→15:08)
--- NOTE | 2018-03-30 15:40 | P.PNNP ---
Subjective Interval history: Patient is awake seen during hemodialysis Physical Exam Vital signs: Vital Signs 03/29/18 16:00 03/29/18 17:45 03/29/18 20:00 Temperature 96.9 F L 98.2 F Pulse Rate 71 72 77 Respiratory Rate 18 18 20 Blood Pressure 124/58 L 118/52 L Pulse Oximetry 97 98 03/30/18 00:00 03/30/18 07:00 03/30/18 08:00 Temperature 98.0 F 97.3 F L Pulse Rate 74 74 Respiratory Rate 20 16 Blood Pressure 121/69 114/49 L Pulse Oximetry 98 97 97 03/30/18 13:00 Temperature 98.1 F Pulse Rate 79 Respiratory Rate 17 Blood Pressure 147/96 H Pulse Oximetry 98 Intake & Output 03/29/18 03/30/18 03/30/18 18:59 06:59 18:59 Intake Total 510 / 510 1410 / 1410 200 / 200 Output Total 125 / 125 350 / 350 Balance 385 / 385 1060 / 1060 200 / 200 Weight 142.6 kg Intake: IV 210 / 210 1050 / 1050 200 / 200 NS Inj 1,000 ML @ 50 mls/hr IV. 1000 / 1000 CONT .Q20H [facility] Rx#:[id number] Flexbumin 25% Inj 100 ML @ 60 200 / 200 mls/hr IV.SIG WITH DIALYSIS PRN Rx#:[id number] Calcium Gluconate Inj 1 GM In 110 / 110 NS Inj 100 ML @ 110 mls/hr IV. SIG ONCE ONE Rx#:[id number] Diflucan 100 mg Premix Bag 50 50 / 50 ML @ 50 mls/hr IV.SIG Q24H [facility] Rx#:[id number] Rocephin Inj 1,000 MG In NS Inj 100 / 100 100 ML @ 200 mls/hr IV.SIG Q24H [facility] Rx#:[id number] Oral 300 / 300 360 / 360 Output: Urine 125 / 125 300 / 300 Urine Amount (Catheter) 50 / 50 Indwelling Urethral Catheter 50 / 50 Other: Date of Last Bowel Movement 03/25/18 # Bowel Movements 0 Narrative: GENERAL: Well-nourished, well-developed patient. SKIN: Warm and dry. HEAD: Normocephalic. EYES: No scleral icterus. No injection or drainage. NECK: Supple, trachea midline. No JVD or lymphadenopathy. CARDIOVASCULAR: S1-S2 is irregular RESPIRATORY: Breath sounds diminished at base . GASTROINTESTINAL: Abdomen soft, non-tender, nondistended. EXTREMITIES: Diminished pulses NEUROLOGICAL: Awake, alert, and oriented x 3. Non-focal. - Urinary Catheter Management Indwelling Urethral Catheter Cath placed during this visit: yes, but has since been removed by the nurse Reason for continuing: Chronic Urinary Retention Insertion date: 02/26/18 Insertion time: 16:00 Removal date: 02/26/18 Removal time: 15:30 Assessment and Plan - Assessment (1) Acute renal failure Code(s): N17.9 - Acute kidney failure, unspecified Status: Acute (2) Chronic kidney disease Code(s): N18.9 - Chronic kidney disease, unspecified Status: Acute (3) Shock Code(s): R57.9 - Shock, unspecified Status: Acute (4) BMI 50.0-59.9, adult Code(s): Z68.43 - Body mass index (BMI) 50-59.9, adult Status: Chronic (5) Diabetes mellitus Code(s): E11.9 - Type 2 diabetes mellitus without complications Status: Chronic Qualifiers: Diabetes mellitus type: type 2 Diabetes mellitus taker out insulin use: with taker out use Diabetes mellitus complication status: with kidney complications Diabetes mellitus complication detail: with other kidney complication Qualified Code(s): E11.29 - Type 2 diabetes mellitus with other diabetic kidney complication; 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
--- NOTE | 2018-03-30 17:36 | ECG ---
Date Performed: 03/29/2018 Time Performed: 16:57:42 PTAGE: 73 years EKG: ATRIAL FIBRILLATION RIGHT BUNDLE BRANCH BLOCK MODERATE T-WAVE ABNORMALITY, CONSIDER LATERAL ISCHEMIA MODERATE T-WAVE ABNORMALITY, CONSIDER INFERIOR ISCHEMIA When compared to previous tracing, rate is faster and voltage is Somewhat better. ABNORMAL ECG PREVIOUS TRACING : 02/26/2018 10.46 DOCTOR: Abram Purvis Interpretating Date/Time 03/30/2018 17:35:33
--- NOTE | 2018-03-30 20:13 | P.PNPL ---
Subjective Interval history: 72 YOWM with RF, renal insuff Feels tired at the end of the day No CP No fever Had HD today Physical Exam Vital signs: Vital Signs 03/30/18 00:00 03/30/18 07:00 03/30/18 08:00 Temperature 98.0 F 97.3 F L Pulse Rate 74 74 Respiratory Rate 20 16 Blood Pressure 121/69 114/49 L Pulse Oximetry 98 97 97 03/30/18 13:00 03/30/18 18:07 03/30/18 18:20 Temperature 98.1 F 97.5 F L Pulse Rate 79 73 Respiratory Rate 17 17 Blood Pressure 147/96 H 139/65 Pulse Oximetry 98 96 97 Intake & Output 03/30/18 03/30/18 03/31/18 06:59 18:59 06:59 Intake Total 1410 / 1410 745 / 745 50 / 50 Output Total 350 / 350 2700 / 2700 Balance 1060 / 1060 -1953 / -1953 50 / 50 Weight 142.6 kg Intake: IV 1050 / 1050 300 / 300 50 / 50 NS Inj 1,000 ML @ 50 mls/hr IV. 1000 / 1000 CONT .Q20H [facility] Rx#:[id number] Flexbumin 25% Inj 100 ML @ 60 200 / 200 mls/hr IV.SIG WITH DIALYSIS PRN Rx#:[id number] Diflucan 100 mg Premix Bag 50 50 / 50 50 / 50 ML @ 50 mls/hr IV.SIG Q24H [facility] Rx#:[id number] Rocephin Inj 1,000 MG In NS Inj 100 / 100 100 ML @ 200 mls/hr IV.SIG Q24H [facility] Rx#:[id number] Oral 360 / 360 445 / 445 Output: Urine 300 / 300 200 / 200 Hemodialysis Amount 2500 / 2500 Urine Amount (Catheter) 50 / 50 Indwelling Urethral Catheter 50 / 50 Other: # Bowel Movements 1 GENERAL: Elderly Wm NAD SKIN: Warm and dry. HEAD: Normocephalic. EYES: No scleral icterus. No injection or drainage. NECK: Supple, trachea midline. No JVD or lymphadenopathy. CARDIOVASCULAR: Regular rate and rhythm without murmurs, gallops, or rubs. RESPIRATORY: Breath sounds equal bilaterally. No accessory muscle use. GASTROINTESTINAL: Abdomen soft, non-tender, nondistended. MUSCULOSKELETAL: No cyanosis, or edema. BACK: Nontender without obvious deformity. No CVA tenderness. - Urinary Catheter Management Indwelling Urethral Catheter Cath placed during this visit: yes, but has since been removed by the nurse Reason for continuing: Chronic Urinary Retention Insertion date: 02/26/18 Insertion time: 16:00 Removal date: 02/26/18 Removal time: 15:30 Assessment and Plan - Plan IMPRESSION: Resp Failure--improved renal Failure HTN ?MIRTA PLAN: Supplement 02 with NC CPAP at night Aerosol nebs Monitor Lytes For HD in AM Procedures - Arterial Line Size (Gauge): 20
[2018-03-30] MEDS: QUEtiapine 25 MG Tablet PO SCH (22:26)
[2018-03-31] MEDS: Levothyroxine 50 MCG Tablet PO SCH (05:44)
--- NOTE | 2018-03-31 09:55 | P.PN ---
Subjective Interval history: ALERT NAD ON PAP THERAPY Physical Exam Vital signs: Vital Signs 03/30/18 13:00 03/30/18 18:07 03/30/18 18:20 Temperature 98.1 F 97.5 F L Pulse Rate 79 73 Respiratory Rate 17 17 Blood Pressure 147/96 H 139/65 Pulse Oximetry 98 96 97 03/30/18 20:00 03/30/18 20:40 03/31/18 00:00 Temperature 98.0 F 98.1 F Pulse Rate 80 80 Respiratory Rate 19 19 Blood Pressure 159/72 H 160/74 H Pulse Oximetry 99 98 98 03/31/18 00:45 03/31/18 03:51 Temperature Pulse Rate Respiratory Rate Blood Pressure Pulse Oximetry 99 98 Intake & Output 03/30/18 03/31/18 03/31/18 18:59 06:59 18:59 Intake Total 745 / 745 170 / 170 Output Total 2700 / 2700 175 / 175 Balance -1955 / -1955 -5 / -5 Weight 140.8 kg Intake: IV 300 / 300 50 / 50 Flexbumin 25% Inj 100 ML @ 60 200 / 200 mls/hr IV.SIG WITH DIALYSIS PRN Rx#:[id number] Diflucan 100 mg Premix Bag 50 50 / 50 ML @ 50 mls/hr IV.SIG Q24H [facility] Rx#:[id number] Rocephin Inj 1,000 MG In NS Inj 100 / 100 100 ML @ 200 mls/hr IV.SIG Q24H [facility] Rx#:[id number] Oral 445 / 445 120 / 120 Output: Urine 200 / 200 Hemodialysis Amount 2500 / 2500 Urine Amount (Catheter) 175 / 175 Indwelling Urethral Catheter 175 / 175 Other: Date of Last Bowel Movement 03/30/18 # Bowel Movements 1 Narrative: GENERAL: no acute distress, speech clear SKIN: Warm and dry. HEAD: Normocephalic. EYES: No scleral icterus. No injection or drainage. NECK: Supple, trachea midline. No JVD or lymphadenopathy. right neck VAS cath in place CARDIOVASCULAR: S1-S2 is irregular RESPIRATORY: Breath sounds diminished at base s GASTROINTESTINAL: Abdomen soft, non-tender, nondistended. EXTREMITIES: Diminished pulses NEUROLOGICAL: Awake, alert, and oriented x 3. Non-focal. - Urinary Catheter Management Indwelling Urethral Catheter Cath placed during this visit: yes, but has since been removed by the nurse Reason for continuing: Chronic Urinary Retention Insertion date: 02/26/18 Insertion time: 16:00 Removal date: 02/26/18 Removal time: 15:30 Results - Labs CBC & Chem 7: 03/30/18 06:38 03/30/18 06:38 - Imaging Impressions Catheter Placement 03/30/18 08:00 CONCLUSION: 1. Uncomplicated line placement as above. Assessment and Plan - Plan RESPIRATORY FAILURE RENAL FAILURE SEPSIS MIRTA/CSA PLAN O2 NEEDED BIPAP/SLEEP increase activity Procedures - Arterial Line Size (Gauge): 20
[2018-03-31] MEDS: Heparin 10,000 UNITS/10 ML Vial (for IV use) OTHER PRN (12:01)
--- NOTE | 2018-03-31 12:39 | P.PN ---
Subjective Interval history: had hemodialysis today again 2 L removed toelrated well feeling better Physical Exam Vital signs: Vital Signs 03/30/18 13:00 03/30/18 18:07 03/30/18 18:20 Temperature 98.1 F 97.5 F L Pulse Rate 79 73 Respiratory Rate 17 17 Blood Pressure 147/96 H 139/65 Pulse Oximetry 98 96 97 03/30/18 20:00 03/30/18 20:40 03/31/18 00:00 Temperature 98.0 F 98.1 F Pulse Rate 80 80 Respiratory Rate 19 19 Blood Pressure 159/72 H 160/74 H Pulse Oximetry 99 98 98 03/31/18 00:45 03/31/18 03:51 Temperature Pulse Rate Respiratory Rate Blood Pressure Pulse Oximetry 99 98 Intake & Output 03/30/18 03/31/18 03/31/18 18:59 06:59 18:59 Intake Total 745 / 745 170 / 170 Output Total 2700 / 2700 175 / 175 2500 / 2500 Balance -1954 / -1954 -5 / -5 -2499 / -2500 Weight 140.8 kg Intake: IV 300 / 300 50 / 50 Flexbumin 25% Inj 100 ML @ 60 200 / 200 mls/hr IV.SIG WITH DIALYSIS PRN Rx#:[id number] Diflucan 100 mg Premix Bag 50 50 / 50 ML @ 50 mls/hr IV.SIG Q24H [facility] Rx#:[id number] Rocephin Inj 1,000 MG In NS Inj 100 / 100 100 ML @ 200 mls/hr IV.SIG Q24H [facility] Rx#:[id number] Oral 445 / 445 120 / 120 Output: Urine 200 / 200 Hemodialysis Amount 2500 / 2500 2500 / 2500 Urine Amount (Catheter) 175 / 175 Indwelling Urethral Catheter 175 / 175 Other: Date of Last Bowel Movement 03/30/18 # Bowel Movements 1 - Urinary Catheter Management Indwelling Urethral Catheter Cath placed during this visit: yes, but has since been removed by the nurse Reason for continuing: Chronic Urinary Retention Insertion date: 02/26/18 Insertion time: 16:00 Removal date: 02/26/18 Removal time: 15:30 Results - Labs CBC & Chem 7: 03/30/18 06:38 03/30/18 06:38 Assessment and Plan - Assessment (1) Acute renal failure Code(s): N17.9 - Acute kidney failure, unspecified Status: Acute (2) Chronic kidney disease Code(s): N18.9 - Chronic kidney disease, unspecified Status: Acute (3) Shock Code(s): R57.9 - Shock, unspecified Status: Acute (4) BMI 50.0-59.9, adult Code(s): Z68.43 - Body mass index (BMI) 50-59.9, adult Status: Chronic (5) Diabetes mellitus Code(s): E11.9 - Type 2 diabetes mellitus without complications Status: Chronic - Plan 72-year-old male with a diagnosis of morbid obesity, depression, dementia, coronary artery disease, hypertension, dyslipidemia, diabetes, atrial fibrillation, hypothyroidism, peripheral neuropathy, chronic kidney disease stage IV, patient has a history of chronic opiate use. The patient was initially sent from [facility] where he was found to have altered mental status, low blood pressure and a heart rate in the 30s and was given atropine. Patient also had a low systolic blood pressure and needed IV pressors. Patient was also in acute kidney injury with elevated potassium which was not improving with treatment and needed hemodialysis. Acute kidney injury on chronic kidney disease stage IIIb- creatinine trending up Nephrology following - at one point was on HD Continue to monitor input and output - + UO= grossly clear Crenal functioning worsening with shortness of breath - Hemodialysis restarted 03/30, HD doen again today 03/31 - Dr. chang ff Atrial flutter/atrial fibrillation/CAD CHF with preserved EF Continue Coumadin Follow INR Continue amiodarone Continue Lopressor Cardiology following HD Obstructive sleep apnea Right-sided pleural effusion status post thoracentesis Continue BiPAP at night Respiratory status has stabilized compared to time of admit Patient is status post right-sided thoracentesis Pulmonology following- Continue oxygen supplementation as needed Abdominal pain - no complaints today - but poor po appetitie - CT of abdomen/pelvis- no acute findings Acute metabolic encephalopathy Resolved History of TIA Continue statin Continue Coumadin Depression Follow clinically Continue Seroquel Continue Cymbalta Peripheral neuropathy Continue gabapentin Dementia Mild at baseline Continue memantine 5 mg daily Hypothyroidism Continue levothyroxine. 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
[2018-03-31] MEDS: Gabapentin 100 MG Capsule PO SCH ×2 (15:17→21:45)
[2018-03-31] MEDS: Metoprolol Tartrate 25 MG Tablet PO SCH ×2 (15:18→21:45)
[2018-03-31] MEDS: Amiodarone 200 MG Tablet PO SCH (15:18)
[2018-03-31] MEDS: Ascorbic Acid 500 MG Tablet PO SCH ×2 (15:18→21:45)
[2018-03-31] MEDS: Lactobacillus Acidophilus/L. Spores Tablet PO SCH ×3 (15:19→17:43)
[2018-03-31] MEDS: Senna/Docusate Sodium 8.6/50 MG Tablet PO SCH ×2 (15:19→21:46)
[2018-03-31] MEDS: Nystatin 100,000 UNITS/GM Powder 15 GM Bottle TOPICAL SCH ×2 (15:22→21:46)
[2018-03-31] MEDS: Sod Chloride 0.9% Inj 1,000 ML IV.CONT SCH ×2 (15:36→21:46)
--- NOTE | 2018-03-31 17:22 | ECHRPT ---
Indication: PERSISTENT HEART FAILURE F/U CONCLUSIONS Normal left ventricular size. Mild concentric left ventricular hypertrophy. The left ventricular systolic function is hyperdynamic with an estimated ejection fraction in the ra nge of 65- 70%. The left atrial size is mildly dilated. The interatrial septum not well visualized. [id number] mitral valve regurgitation. There is mild tricuspid valve regurgitation. The estimated pulmonary arterial pressure is 51 mmHg. There is less than 50% respiratory change in dimension of the inferior vena cava (abnormal). Small to moderate pericardial effusion . Borderline features for hemodynamic significance such as partial right atrial collapse. Respiratory variation across the tricuspid valve is not greater than 25%. Visually does not appear consistent with tamponade or pre-tamponade physiology, but clinical correla tion is recommended. The effusion does not appear to be loculated. Large left and right pleural effusion. BP: / HR: Rhythm: Sinus MEASUREMENTS (Male / Female) Normal Values Technical Quality:Technically difficult study 2D ECHO LV Diastolic Diameter PLAX 5.3 cm 4.2 - 5.9 / 3.9 - 5.3 cm LV Systolic Diameter PLAX 3.5 cm IVS Diastolic Thickness 1.2 cm 0.6 - 1.0 / 0.6 - 0.9 cm LVPW Diastolic Thickness 1.2 cm 0.6 - 1.0 / 0.6 - 0.9 cm LV Relative Wall Thickness 0.5 RV Internal Dim ED PLAX 3.3 cm LVOT Diameter 2.3 cm Aortic Root Diameter 3.2 cm LA Systolic Diameter LX 4.2 cm 3.0 - 4.0 / 2.7 - 3.8 cm M-MODE AV Cusp Separation MM 2.2 cm DOPPLER AV Peak Velocity 119.0 cm/s AV Peak Gradient 5.7 mmHg AV Mean Gradient 3.0 mmHg AV Velocity Time Integral 17.7 cm LVOT Peak Velocity 92.5 cm/s LVOT Peak Gradient 3.4 mmHg LVOT Velocity Time Integral 14.1 cm AV Area Cont Eq vti 3.3 cm AV Area Cont Eq pk 3.2 cm Mitral E Point Velocity 109.0 cm/s Mitral A Point Velocity 66.1 cm/s Mitral E to A Ratio 1.6 LV E' Lateral Velocity 7.4 cm/s Mitral E to LV E' Lateral Ratio 14.7 LV E' Septal Velocity 7.7 cm/s Mitral E to LV E' Septal Ratio 14.2 TR Peak Velocity 320.0 cm/s TR Peak Gradient 41.0 mmHg Right Atrial Pressure 10.0 mmHg Pulmonary Artery Systolic Pressu 51.0 mmHg Right Ventricular Systolic Press 51.0 mmHg PV Peak Velocity 82.0 cm/s PV Peak Gradient 2.7 mmHg FINDINGS LEFT VENTRICLE Normal left ventricular size. Mild concentric left ventricular hypertrophy. The left ventricular systolic function is hyperdynamic with an estimated ejection fraction in the ra nge of 65- 70%. RIGHT VENTRICLE Normal right ventricular size and systolic function. LEFT ATRIUM The left atrial size is mildly dilated. RIGHT ATRIUM The right atrial size is normal. ATRIAL SEPTUM The interatrial septum not well visualized. AORTA The aortic root and proximal ascending aorta are normal in size on limited imaging. MITRAL VALVE [id number] mitral valve regurgitation. AORTIC VALVE Trileaflet aortic valve. No aortic valve stenosis or regurgitation. TRICUSPID VALVE There is mild tricuspid valve regurgitation. The estimated pulmonary arterial pressure is 51 mmHg. PULMONARY VALVE No pulmonary valve regurgitation or stenosis. VESSELS There is less than 50% respiratory change in dimension of the inferior vena cava (abnormal). PERICARDIUM Small to moderate pericardial effusion . Borderline features for hemodynamic significance such as partial right atrial collapse. Respiratory variation across the tricuspid valve is not greater than 25%. Visually does not appear consistent with tamponade or pre-tamponade physiology, but clinical correla tion is recommended. The effusion does not appear to be loculated. Large left and right pleural effusion. Magdiel Fontanez MD, FACC (Electronically Signed) Final Date:31 March 2018 17:21
--- NOTE | 2018-03-31 17:26 | P.PNNP ---
Subjective Interval history: patient on dialysis Physical Exam Vital signs: Vital Signs 03/30/18 18:07 03/30/18 18:20 03/30/18 20:00 Temperature 97.5 F L 98.0 F Pulse Rate 73 80 Respiratory Rate 17 19 Blood Pressure 139/65 159/72 H Pulse Oximetry 96 97 99 03/30/18 20:40 03/31/18 00:00 03/31/18 00:45 Temperature 98.1 F Pulse Rate 80 Respiratory Rate 19 Blood Pressure 160/74 H Pulse Oximetry 98 98 99 03/31/18 03:51 03/31/18 08:00 Temperature 98.2 F Pulse Rate 80 Respiratory Rate 16 Blood Pressure 125/55 L Pulse Oximetry 98 98 Intake & Output 03/30/18 03/31/18 03/31/18 18:59 06:59 18:59 Intake Total 745 / 745 170 / 170 Output Total 2700 / 2700 175 / 175 2500 / 2500 Balance -1955 / -1955 -5 / -5 -2500 / -2500 Weight 140.8 kg Intake: IV 300 / 300 50 / 50 Flexbumin 25% Inj 100 ML @ 60 200 / 200 mls/hr IV.SIG WITH DIALYSIS PRN Rx#:[id number] Diflucan 100 mg Premix Bag 50 50 / 50 ML @ 50 mls/hr IV.SIG Q24H ANA Rx#:[id number] Rocephin Inj 1,000 MG In NS Inj 100 / 100 100 ML @ 200 mls/hr IV.SIG Q24H ANA Rx#:[id number] Oral 445 / 445 120 / 120 Output: Urine 200 / 200 Hemodialysis Amount 2500 / 2500 2500 / 2500 Urine Amount (Catheter) 175 / 175 Indwelling Urethral Catheter 175 / 175 Other: Date of Last Bowel Movement 03/30/18 # Bowel Movements 1 Narrative: GENERAL: Well-nourished, well-developed patient. SKIN: Warm and dry. HEAD: Normocephalic. EYES: No scleral icterus. No injection or drainage. NECK: Supple, trachea midline. No JVD or lymphadenopathy. CARDIOVASCULAR: S1-S2 is irregular RESPIRATORY: Breath sounds diminished at base . GASTROINTESTINAL: Abdomen soft, non-tender, nondistended. EXTREMITIES: Diminished pulses NEUROLOGICAL: Awake, alert, and oriented x 3. Non-focal. - Urinary Catheter Management Indwelling Urethral Catheter Cath placed during this visit: yes, but has since been removed by the nurse Reason for continuing: Chronic Urinary Retention Insertion date: 02/26/18 Insertion time: 16:00 Removal date: 02/26/18 Removal time: 15:30 Assessment and Plan - Assessment (1) Acute renal failure Code(s): N17.9 - Acute kidney failure, unspecified Status: Acute (2) Chronic kidney disease Code(s): N18.9 - Chronic kidney disease, unspecified Status: Acute (3) Shock Code(s): R57.9 - Shock, unspecified Status: Acute (4) BMI 50.0-59.9, adult Code(s): Z68.43 - Body mass index (BMI) 50-59.9, adult Status: Chronic (5) Diabetes mellitus Code(s): E11.9 - Type 2 diabetes mellitus without complications Status: Chronic Qualifiers: Diabetes mellitus type: type 2 Diabetes mellitus custodial insulin use: with terminal supervisor use Diabetes mellitus complication status: with kidney complications Diabetes mellitus complication detail: with other kidney complication Qualified Code(s): E11.29 - Type 2 diabetes mellitus with other diabetic kidney complication; Z79.4 - residential (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 - Plan Patient has progressive renal failure congestive heart failure, atrial fibrillation/flutter Vas-Cath was reinserted Hemodialysis started Patient is seen during hemodialysis 2.5 L of fluid been removed he is tolerating it well Urine output remains low Potassium did improve Chest x-ray showed pleural effusions Repeat echocardiogram pending possible pericardial effusion seen as well Continue to monitor his progress hold Coumadin for PermCath insertion next week Procedures - Arterial Line Size (Gauge): 20
[2018-03-31] MEDS: QUEtiapine 25 MG Tablet PO SCH (21:46)
[2018-04-01] MEDS: Levothyroxine 50 MCG Tablet PO SCH (05:05)
[2018-04-01] MEDS: Sod Chloride 0.9% Inj 1,000 ML IV.CONT SCH (06:02)
[2018-04-01] MEDS: Senna/Docusate Sodium 8.6/50 MG Tablet PO SCH ×2 (08:30→21:48)
[2018-04-01] MEDS: Amiodarone 200 MG Tablet PO SCH (08:31)
[2018-04-01] MEDS: Ascorbic Acid 500 MG Tablet PO SCH ×2 (08:31→21:46)
[2018-04-01] MEDS: Lactobacillus Acidophilus/L. Spores Tablet PO SCH ×3 (08:31→17:00)
[2018-04-01] MEDS: Metoprolol Tartrate 25 MG Tablet PO SCH ×2 (08:32→21:52)
[2018-04-01] MEDS: Gabapentin 100 MG Capsule PO SCH ×2 (08:32→21:47)
--- NOTE | 2018-04-01 08:35 | P.PN ---
Subjective Interval history: awake and alert ate more this am- no nausea or vomiting states feeling stronger mejia in place - decrease urine output Physical Exam Vital signs: Vital Signs 03/31/18 14:00 03/31/18 16:00 03/31/18 20:00 Temperature 97.7 F 97.9 F 97.9 F Pulse Rate 100 H 78 83 Respiratory Rate 17 18 18 Blood Pressure 137/63 110/61 147/65 H Pulse Oximetry 97 99 95 03/31/18 20:13 03/31/18 23:00 04/01/18 00:00 Temperature 98.1 F Pulse Rate 80 Respiratory Rate 18 Blood Pressure 112/59 L Pulse Oximetry 95 94 L 94 L 04/01/18 00:53 04/01/18 05:16 04/01/18 08:00 Temperature 97.8 F Pulse Rate 96 H Respiratory Rate 16 Blood Pressure 124/52 L Pulse Oximetry 99 95 96 Intake & Output 03/31/18 04/01/18 04/01/18 18:59 06:59 18:59 Intake Total 150 / 150 590 / 590 Output Total 2750 / 2750 75 / 75 Balance -2600 / -2600 515 / 515 Weight 141.7 kg Intake: IV 150 / 150 350 / 350 NS Inj 1,000 ML @ 50 mls/hr IV. 350 / 350 CONT .Q20H ANA Rx#:[id number] Diflucan 100 mg Premix Bag 50 50 / 50 ML @ 50 mls/hr IV.SIG Q24H ANA Rx#:[id number] Rocephin Inj 1,000 MG In NS Inj 100 / 100 100 ML @ 200 mls/hr IV.SIG Q24H ANA Rx#:[id number] Oral 240 / 240 Output: Urine 75 / 75 Hemodialysis Amount 2500 / 2500 Urine Amount (Catheter) 250 / 250 Indwelling Urethral Catheter 250 / 250 Narrative: GENERAL: alert, no acute distress SKIN: Warm and dry. HEAD: Normocephalic. EYES: No scleral icterus. No injection or drainage. NECK: Supple, trachea midline. No JVD or lymphadenopathy. VAS cath in place right CARDIOVASCULAR:regular rhythm, no rub RESPIRATORY: Breath sounds diminished at base . GASTROINTESTINAL: Abdomen soft, non-tender, + bowel sounds EXTREMITIES: Diminished pulses NEUROLOGICAL: Awake, alert, and oriented x 3. Non-focal. - Urinary Catheter Management Indwelling Urethral Catheter Cath placed during this visit: yes, but has since been removed by the nurse Urethral indwelling: Yes Reason for continuing: Hourly intake/output Insertion date: 02/26/18 Insertion time: 16:00 Removal date: 02/26/18 Removal time: 15:30 Results - Labs CBC & Chem 7: 04/02/18 07:47 04/02/18 07:47 Assessment and Plan - Assessment (1) Acute renal failure Code(s): N17.9 - Acute kidney failure, unspecified Status: Acute (2) Chronic kidney disease Code(s): N18.9 - Chronic kidney disease, unspecified Status: Acute (3) Shock Code(s): R57.9 - Shock, unspecified Status: Acute (4) BMI 50.0-59.9, adult Code(s): Z68.43 - Body mass index (BMI) 50-59.9, adult Status: Chronic (5) Diabetes mellitus Code(s): E11.9 - Type 2 diabetes mellitus without complications Status: Chronic - Plan 72-year-old male with a diagnosis of morbid obesity, depression, dementia, coronary artery disease, hypertension, dyslipidemia, diabetes, atrial fibrillation, hypothyroidism, peripheral neuropathy, chronic kidney disease stage IV, patient has a history of chronic opiate use. The patient was initially sent from [facility]] and rehab facility where he was found to have altered mental status, low blood pressure and a heart rate in the 30s and was given atropine. Patient also had a low systolic blood pressure and needed IV pressors. Patient was also in acute kidney injury with elevated potassium which was not improving with treatment and needed hemodialysis. Acute kidney injury on chronic kidney disease stage IIIb- creatinine trending up -oliguric Nephrology following - at one point was on HD Continue to monitor input and output - Crenal functioning worsening with shortness of breath - Hemodialysis restarted 03/30, HD 03/31 - for HD again this am - Dr. charlene iglesias Atrial flutter/atrial fibrillation/CAD CHF with preserved EF Pericardial effusion on echo - no evidence of tamponade hemodynamically stable Continue Coumadin Follow INR Continue amiodarone Continue Lopressor Cardiology following continue hemodialysis- effusion should improve with HD Obstructive sleep apnea Right-sided pleural effusion status post thoracentesis Continue BiPAP at night Respiratory status has stabilized compared to time of admit Patient is status post right-sided thoracentesis Pulmonology following- Continue oxygen supplementation as needed Abdominal pain - no complaints today - po - eating more per patient - CT of abdomen/pelvis- no acute findings Acute metabolic encephalopathy Resolved History of TIA Continue statin Continue Coumadin Depression Follow clinically Continue Seroquel Continue Cymbalta Peripheral neuropathy Continue gabapentin Dementia Mild at baseline Continue memantine 5 mg daily Hypothyroidism Continue levothyroxine. Diabetes mellitus type 2 Follow blood sugars Diet controlled Diabetic diet Global weakness Continue PT/OT DVT prophylaxis Coumadin- on hold - for perm cath next week Discharge planning - will need SNF Progress Note: Quality VTE Deep Vein Thrombosis/Pulmonary Embolism Present on Admission: No Procedures - Arterial Line Size (Gauge): 20 (5) Diabetes mellitus Qualifiers: Diabetes mellitus type: type 2 Diabetes mellitus care home insulin use: with long lines operator use Diabetes mellitus complication status: with kidney complications Diabetes mellitus complication detail: with other kidney complication Qualified Code(s): E11.29 - Type 2 diabetes mellitus with other diabetic kidney complication; Z79.4 - alf (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
[2018-04-01 08:51] LABS: Baso # (Auto) 0.1 th/mm3 (0.0-0.2); Baso % (Auto) 0.8 % (0.0-2.0); Eos # (Auto) 0.2 th/mm3 (0.0-0.4); Eos % (Auto) 2.7 % (0.0-4.0); Hematocrit 23.6 % (39.0-51.0); Hemoglobin 7.9 gm/dL (13.0-17.0); Lymph % (Auto) 11.6 % (9.0-44.0); Mean Corpuscular HGB Conc 33.4 % (32.0-36.0); Mean Corpuscular Hemoglobin 28.5 pg (27.0-34.0); Mean Corpuscular Volume 85.2 fL (80.0-100.0); Mono # (Auto) 0.9 th/mm3 (0.0-0.9); Mono % (Auto) 10.9 % (0.0-8.0); Neut # (Auto) 6.4 th/mm3 (1.8-7.7); Platelet Count 249 th/mm3 (150-450); Red Blood Count 2.77 mil/mm3 (4.50-5.90); Red Cell Distribution Width 14.8 % (11.6-17.2); White Blood Count 8.7 th/mm3 (4.0-11.0)
[2018-04-01 09:21] LABS: Calcium 8.5 mg/dL (8.5-10.1); Carbon Dioxide 29.1 meq/L (21.0-32.0); Potassium 3.6 meq/L (3.5-5.1)
--- NOTE | 2018-04-01 10:46 | P.PNNP ---
Physical Exam Vital signs: Vital Signs 03/31/18 14:00 03/31/18 16:00 03/31/18 20:00 Temperature 97.7 F 97.9 F 97.9 F Pulse Rate 100 H 78 83 Respiratory Rate 17 18 18 Blood Pressure 137/63 110/61 147/65 H Pulse Oximetry 97 99 95 03/31/18 20:13 03/31/18 23:00 04/01/18 00:00 Temperature 98.1 F Pulse Rate 80 Respiratory Rate 18 Blood Pressure 112/59 L Pulse Oximetry 95 94 L 94 L 04/01/18 00:53 04/01/18 05:16 04/01/18 08:00 Temperature 97.8 F Pulse Rate 96 H Respiratory Rate 16 Blood Pressure 124/52 L Pulse Oximetry 99 95 97 Intake & Output 03/31/18 04/01/18 04/01/18 18:59 06:59 18:59 Intake Total 150 / 150 590 / 590 Output Total 2750 / 2750 75 / 75 Balance -2600 / -2600 515 / 515 Weight 141.7 kg Intake: IV 150 / 150 350 / 350 NS Inj 1,000 ML @ 50 mls/hr IV. 350 / 350 CONT .Q20H ANA Rx#:[id number] Diflucan 100 mg Premix Bag 50 50 / 50 ML @ 50 mls/hr IV.SIG Q24H ANA Rx#:[id number] Rocephin Inj 1,000 MG In NS Inj 100 / 100 100 ML @ 200 mls/hr IV.SIG Q24H ANA Rx#:[id number] Oral 240 / 240 Output: Urine 75 / 75 Hemodialysis Amount 2500 / 2500 Urine Amount (Catheter) 250 / 250 Indwelling Urethral Catheter 250 / 250 Narrative: GENERAL: alert, no acute distress SKIN: Warm and dry. HEAD: Normocephalic. EYES: No scleral icterus. No injection or drainage. NECK: Supple, trachea midline. No JVD or lymphadenopathy. VAS cath in place right CARDIOVASCULAR: irregular rhythm, no rub RESPIRATORY: Breath sounds diminished at base . GASTROINTESTINAL: Abdomen soft, non-tender, + bowel sounds EXTREMITIES: Diminished pulses NEUROLOGICAL: Awake, alert, and oriented x 3. Non-focal. - Urinary Catheter Management Indwelling Urethral Catheter Cath placed during this visit: yes, but has since been removed by the nurse Urethral indwelling: Yes Reason for continuing: Hourly intake/output Insertion date: 02/26/18 Insertion time: 16:00 Removal date: 02/26/18 Removal time: 15:30 Assessment and Plan - Assessment (1) Acute renal failure Code(s): N17.9 - Acute kidney failure, unspecified Status: Acute (2) Chronic kidney disease Code(s): N18.9 - Chronic kidney disease, unspecified Status: Acute (3) Shock Code(s): R57.9 - Shock, unspecified Status: Acute (4) BMI 50.0-59.9, adult Code(s): Z68.43 - Body mass index (BMI) 50-59.9, adult Status: Chronic (5) Diabetes mellitus Code(s): E11.9 - Type 2 diabetes mellitus without complications Status: Chronic Qualifiers: Diabetes mellitus type: type 2 Diabetes mellitus prison insulin use: with prison use Diabetes mellitus complication status: with kidney complications Diabetes mellitus complication detail: with other kidney complication Qualified Code(s): E11.29 - Type 2 diabetes mellitus with other diabetic kidney complication; Z79.4 - lobsterman (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 - Plan Patient has progressive renal failure congestive heart failure, atrial fibrillation/flutter Vas-Cath was reinserted Hemodialysis started Patient is seen during hemodialysis 3 L of fluid been removed he is tolerating it well Urine output remains low Potassium did improve Chest x-ray showed pleural effusions Repeat echocardiogram pending possible pericardial effusion seen as well Continue to monitor his progress hold Coumadin for PermCath insertion next week Procedures - Arterial Line Size (Gauge): 20
[2018-04-01] MEDS: Heparin 10,000 UNITS/10 ML Vial (for IV use) OTHER PRN (12:45)
[2018-04-01] MEDS: Nystatin 100,000 UNITS/GM Powder 15 GM Bottle TOPICAL SCH ×2 (14:55→21:48)
[2018-04-01] MEDS: QUEtiapine 25 MG Tablet PO SCH (21:48)
--- NOTE | 2018-04-02 00:06 | P.PN ---
Subjective Interval history: ALERT ON O2 NAD Physical Exam Vital signs: Vital Signs 04/01/18 00:53 04/01/18 05:16 04/01/18 08:00 Temperature 97.8 F Pulse Rate 96 H Respiratory Rate 16 Blood Pressure 124/52 L Pulse Oximetry 99 95 97 04/01/18 14:56 04/01/18 16:00 04/01/18 17:00 Temperature 97.9 F Pulse Rate 98 H Respiratory Rate 18 17 Blood Pressure 109/51 L Pulse Oximetry 98 97 04/01/18 20:00 Temperature 97.6 F Pulse Rate 91 H Respiratory Rate 18 Blood Pressure 106/52 L Pulse Oximetry 98 Intake & Output 04/01/18 04/01/18 04/02/18 06:59 18:59 06:59 Intake Total 590 / 590 930 / 930 Output Total 75 / 75 3030 / 3030 Balance 515 / 515 -2100 / -2100 Weight 141.7 kg Intake: IV 350 / 350 150 / 150 NS Inj 1,000 ML @ 50 mls/hr IV. 350 / 350 0 / 0 CONT .Q20H ANA Rx#:[id number] Diflucan 100 mg Premix Bag 50 50 / 50 ML @ 50 mls/hr IV.SIG Q24H ANA Rx#:[id number] Rocephin Inj 1,000 MG In NS Inj 100 / 100 100 ML @ 200 mls/hr IV.SIG Q24H ANA Rx#:[id number] Oral 240 / 240 780 / 780 Output: Urine 75 / 75 Hemodialysis Amount 3000 / 3000 Urine Amount (Catheter) 30 / 30 Indwelling Urethral Catheter Other: Date of Last Bowel Movement 04/01/18 # Bowel Movements 1 Narrative: GENERAL: alert, no acute distress SKIN: Warm and dry. HEAD: Normocephalic. EYES: No scleral icterus. No injection or drainage. NECK: Supple, trachea midline. No JVD or lymphadenopathy. VAS cath in place right CARDIOVASCULAR: irregular rhythm, no rub RESPIRATORY: Breath sounds diminished at base . GASTROINTESTINAL: Abdomen soft, non-tender, + bowel sounds EXTREMITIES: Diminished pulses NEUROLOGICAL: Awake, alert, and oriented x 3. Non-focal. - Urinary Catheter Management Indwelling Urethral Catheter Cath placed during this visit: yes, but has since been removed by the nurse Urethral indwelling: Yes Reason for continuing: Chronic Urinary Retention Insertion date: 02/26/18 Insertion time: 16:00 Removal date: 02/26/18 Removal time: 15:30 Results - Labs CBC & Chem 7: 04/01/18 06:18 04/01/18 06:18 Laboratory Results - last 24 hr 04/01/18 04/01/18 04/01/18 06:18 06:18 12:59 WBC 8.7 RBC 2.77 L Hgb 7.9 L Hct 23.6 L MCV 85.2 MCH 28.5 MCHC 33.4 RDW 14.8 Plt Count 249 MPV 8.0 Neut % (Auto) 74.0 H Lymph % (Auto) 11.6 [place] % (Auto) 10.9 H Eos % (Auto) 2.7 Baso % (Auto) 0.8 Neut # (Auto) 6.4 Lymph # (Auto) 1.0 [place] # (Auto) 0.9 Eos # (Auto) 0.2 Baso # (Auto) 0.1 WBC Differential . Differential Comment Auto diff final Sodium 133 L Potassium 3.6 D Chloride 95 L Carbon Dioxide 29.1 Anion Gap 9 BUN 27 H Creatinine 3.62 H Estimated GFR 17 L POC Glucose 118 H Random Glucose 97 Calcium 8.5 Assessment and Plan - Plan RESPIRATORY FAILURE RENAL FAILURE MIRTA/CSA PLAN O2 NEEDED BIPAP/SLEEP increase activity Procedures - Arterial Line Size (Gauge): 20
[2018-04-02] MEDS: Levothyroxine 50 MCG Tablet PO SCH (06:15)
[2018-04-02 08:11] LABS: Baso # (Auto) 0.1 th/mm3 (0.0-0.2); Eos # (Auto) 0.3 th/mm3 (0.0-0.4); Eos % (Auto) 3.7 % (0.0-4.0); Hematocrit 23.2 % (39.0-51.0); Hemoglobin 7.7 gm/dL (13.0-17.0); Lymph # (Auto) 1.1 th/mm3 (1.0-4.8); Lymph % (Auto) 12.6 % (9.0-44.0); Mean Corpuscular HGB Conc 33.1 % (32.0-36.0); Mean Corpuscular Hemoglobin 28.7 pg (27.0-34.0); Mean Corpuscular Volume 86.7 fL (80.0-100.0); Mean Platelet Volume 7.5 fL (7.0-11.0); Mono # (Auto) 0.8 th/mm3 (0.0-0.9); Mono % (Auto) 9.7 % (0.0-8.0); Neut # (Auto) 6.4 th/mm3 (1.8-7.7); Platelet Count 256 th/mm3 (150-450); Red Blood Count 2.67 mil/mm3 (4.50-5.90); White Blood Count 8.8 th/mm3 (4.0-11.0)
[2018-04-02 08:21] LABS: Prothrombin Time 20.2 sec (9.8-11.6)
[2018-04-02 08:37] LABS: Calcium 8.2 mg/dL (8.5-10.1); Carbon Dioxide 31.3 meq/L (21.0-32.0); Potassium 3.5 meq/L (3.5-5.1)
[2018-04-02] MEDS: Sod Chloride 0.9% Inj 1,000 ML IV.CONT SCH (11:00)
[2018-04-02] MEDS: Amiodarone 200 MG Tablet PO SCH (11:01)
[2018-04-02] MEDS: Nystatin 100,000 UNITS/GM Powder 15 GM Bottle TOPICAL SCH ×2 (11:02→22:15)
[2018-04-02] MEDS: Lactobacillus Acidophilus/L. Spores Tablet PO SCH ×3 (11:02→18:01)
[2018-04-02] MEDS: Metoprolol Tartrate 25 MG Tablet PO SCH ×2 (11:02→22:15)
[2018-04-02] MEDS: Senna/Docusate Sodium 8.6/50 MG Tablet PO SCH ×2 (11:03→22:14)
[2018-04-02] MEDS: Gabapentin 100 MG Capsule PO SCH ×2 (11:03→22:14)
[2018-04-02] MEDS: Ascorbic Acid 500 MG Tablet PO SCH ×2 (11:05→22:14)
--- NOTE | 2018-04-02 11:19 | P.PN ---
Subjective Interval history: awake and alert, oreinted x 3 no distress denies any pain sttes feels stronger when he gets dialysis Physical Exam Vital signs: Vital Signs 04/01/18 14:56 04/01/18 16:00 04/01/18 17:00 Temperature 97.9 F Pulse Rate 98 H Respiratory Rate 18 17 Blood Pressure 109/51 L Pulse Oximetry 98 97 04/01/18 20:00 04/02/18 00:00 04/02/18 00:55 Temperature 97.6 F 97.6 F Pulse Rate 91 H 96 H Respiratory Rate 18 17 Blood Pressure 106/52 L 106/49 L Pulse Oximetry 98 99 95 04/02/18 04:05 04/02/18 08:00 04/02/18 08:50 Temperature 98.0 F Pulse Rate 78 Respiratory Rate 18 Blood Pressure 99/53 L Pulse Oximetry 96 99 99 Intake & Output 04/01/18 04/02/18 04/02/18 18:59 06:59 18:59 Intake Total 930 / 930 120 / 120 Output Total 3030 / 3030 50 / 50 Balance -2099 / -2100 70 / 70 Weight 141.7 kg Intake: IV 150 / 150 NS Inj 1,000 ML @ 50 mls/hr IV. 0 / 0 CONT .Q20H ANA Rx#:[id number] Diflucan 100 mg Premix Bag 50 50 / 50 ML @ 50 mls/hr IV.SIG Q24H ANA Rx#:[id number] Rocephin Inj 1,000 MG In NS Inj 100 / 100 100 ML @ 200 mls/hr IV.SIG Q24H ANA Rx#:[id number] Oral 780 / 780 120 / 120 Output: Urine 50 / 50 Hemodialysis Amount 3000 / 3000 Urine Amount (Catheter) 30 30 Indwelling Urethral Catheter Other: Date of Last Bowel Movement 04/01/18 04/01/18 # Bowel Movements 1 Narrative: GENERAL: alert, no acute distress. oriented x 3,. speeech clear SKIN: Warm and dry. HEAD: Normocephalic. EYES: No scleral icterus. No injection or drainage. NECK: Supple, trachea midline. No JVD or lymphadenopathy. VAS cath in place right CARDIOVASCULAR: sinus on exam, no rub RESPIRATORY: Breath sounds diminished at base . GASTROINTESTINAL: Abdomen soft, non-tender, + bowel sounds EXTREMITIES: Diminished pulses NEUROLOGICAL: Awake, alert, and oriented x 3. Non-focal. - Urinary Catheter Management Indwelling Urethral Catheter Cath placed during this visit: yes, but has since been removed by the nurse Urethral indwelling: Yes Reason for continuing: Chronic Urinary Retention Insertion date: 02/26/18 Insertion time: 16:00 Removal date: 02/26/18 Removal time: 15:30 Results - Labs CBC & Chem 7: 04/02/18 07:47 04/02/18 07:47 Laboratory Results - last 24 hr 04/01/18 04/02/18 04/02/18 12:59 07:47 07:47 WBC 8.8 RBC 2.67 L Hgb 7.7 L Hct 23.2 L MCV 86.7 MCH 28.7 MCHC 33.1 RDW 15.0 Plt Count 256 MPV 7.5 Neut % (Auto) 73.0 H Lymph % (Auto) 12.6 [place] % (Auto) 9.7 H Eos % (Auto) 3.7 Baso % (Auto) 1.0 Neut # (Auto) 6.4 Lymph # (Auto) 1.1 [place] # (Auto) 0.8 Eos # (Auto) 0.3 Baso # (Auto) 0.1 WBC Differential . Differential Comment Auto diff final PT INR Sodium 135 L Potassium 3.5 Chloride 96 L Carbon Dioxide 31.3 Anion Gap 8 BUN 19 H Creatinine 3.29 H Estimated GFR 19 L POC Glucose 118 H Random Glucose 105 Calcium 8.2 L 04/02/18 07:47 WBC RBC Hgb Hct MCV MCH MCHC RDW Plt Count MPV Neut % (Auto) Lymph % (Auto) [place] % (Auto) Eos % (Auto) Baso % (Auto) Neut # (Auto) Lymph # (Auto) [place] # (Auto) Eos # (Auto) Baso # (Auto) WBC Differential Differential Comment PT 20.2 H D INR 2.0 Sodium Potassium Chloride Carbon Dioxide Anion Gap BUN Creatinine Estimated GFR POC Glucose Random Glucose Calcium Assessment and Plan - Assessment (1) Acute renal failure Code(s): N17.9 - Acute kidney failure, unspecified Status: Acute (2) Chronic kidney disease Code(s): N18.9 - Chronic kidney disease, unspecified Status: Acute (3) Shock Code(s): R57.9 - Shock, unspecified Status: Acute (4) BMI 50.0-59.9, adult Code(s): Z68.43 - Body mass index (BMI) 50-59.9, adult Status: Chronic (5) Diabetes mellitus Code(s): E11.9 - Type 2 diabetes mellitus without complications Status: Chronic - Plan 72-year-old male with a diagnosis of morbid obesity, depression, dementia, coronary artery disease, hypertension, dyslipidemia, diabetes, atrial fibrillation, hypothyroidism, peripheral neuropathy, chronic kidney disease stage IV, patient has a history of chronic opiate use. The patient was initially sent from [facility] rehab facility where he was found to have altered mental status, low blood pressure and a heart rate in the 30s and was given atropine. Patient also had a low systolic blood pressure and needed IV pressors. Patient was also in acute kidney injury with elevated potassium which was not improving with treatment and needed hemodialysis. Acute kidney injury on chronic kidney disease stage IIIb- creatinine trending up -oliguric Nephrology following - at one point was on HD Continue to monitor input and output - renal functioning worsening with shortness of breath - Hemodialysis restarted 03/30, HD 03/31 - Dr. Leal ff - for perm cath umer Hx Atrial flutter/atrial fibrillation/CAD- CHF with preserved EF Pericardial effusion on echo - no evidence of tamponade hemodynamically stable Continue Coumadin- on hold for permcath umer, INR 2.0 today SR on exam today Continue amiodarone Continue Lopressor Cardiology following continue hemodialysis- effusion should improve with HD Obstructive sleep apnea Right-sided pleural effusion status post thoracentesis Continue BiPAP at night Respiratory status has stabilized compared to time of admit Patient is status post right-sided thoracentesis Pulmonology following- Continue oxygen supplementation as needed Abdominal pain - improved - no complaints today - po - eating more per patient - CT of abdomen/pelvis- no acute findings Acute metabolic encephalopathy Resolved History of TIA Continue statin Continue Coumadin Depression Follow clinically Continue Seroquel Continue Cymbalta Peripheral neuropathy Continue gabapentin Dementia Mild at baseline Continue memantine 5 mg daily Hypothyroidism Continue levothyroxine. Diabetes mellitus type 2 Follow blood sugars Diet controlled Diabetic diet Global weakness Continue PT/OT DVT prophylaxis Coumadin- on hold - for perm cath next week Discharge planning - will need SNF Progress Note: Quality VTE Deep Vein Thrombosis/Pulmonary Embolism Present on Admission: No Procedures - Arterial Line Size (Gauge): 20 (5) Diabetes mellitus Qualifiers: Diabetes mellitus type: type 2 Diabetes mellitus group home insulin use: with terminal supervisor use Diabetes mellitus complication status: with kidney complications Diabetes mellitus complication detail: with other kidney complication Qualified Code(s): E11.29 - Type 2 diabetes mellitus with other diabetic kidney complication; Z79.4 - termite technician (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
--- NOTE | 2018-04-02 14:17 | P.PNNP ---
Subjective Interval history: Patient was started on hemodialysis feels tired Physical Exam Vital signs: Vital Signs 04/01/18 14:56 04/01/18 16:00 04/01/18 17:00 Temperature 97.9 F Pulse Rate 98 H Respiratory Rate 18 17 Blood Pressure 109/51 L Pulse Oximetry 98 97 04/01/18 20:00 04/02/18 00:00 04/02/18 00:55 Temperature 97.6 F 97.6 F Pulse Rate 91 H 96 H Respiratory Rate 18 17 Blood Pressure 106/52 L 106/49 L Pulse Oximetry 98 99 95 04/02/18 04:05 04/02/18 08:00 04/02/18 08:50 Temperature 98.0 F Pulse Rate 78 Respiratory Rate 18 Blood Pressure 99/53 L Pulse Oximetry 96 99 99 04/02/18 12:00 Temperature 98.0 F Pulse Rate 83 Respiratory Rate 18 Blood Pressure 108/51 L Pulse Oximetry 99 Intake & Output 04/01/18 04/02/18 04/02/18 18:59 06:59 18:59 Intake Total 930 / 930 120 / 120 Output Total 3030 / 3030 50 / 50 Balance -2100 / -2100 70 / 70 Weight 141.7 kg Intake: IV 150 / 150 NS Inj 1,000 ML @ 50 mls/hr IV. 0 / 0 CONT .Q20H ANA Rx#:[id number] Diflucan 100 mg Premix Bag 50 50 / 50 ML @ 50 mls/hr IV.SIG Q24H ANA Rx#:[id number] Rocephin Inj 1,000 MG In NS Inj 100 / 100 100 ML @ 200 mls/hr IV.SIG Q24H ANA Rx#:[id number] Oral 780 / 780 120 / 120 Output: Urine 50 / 50 Hemodialysis Amount 3000 / 3000 Urine Amount (Catheter) 30 Indwelling Urethral Catheter Other: Date of Last Bowel Movement 04/01/18 04/01/18 04/01/18 # Bowel Movements 1 Narrative: GENERAL: alert, no acute distress. oriented x 3,. speeech clear SKIN: Warm and dry. HEAD: Normocephalic. EYES: No scleral icterus. No injection or drainage. NECK: Supple, trachea midline. No JVD or lymphadenopathy. VAS cath in place right CARDIOVASCULAR: sinus on exam, no rub RESPIRATORY: Breath sounds diminished at base . GASTROINTESTINAL: Abdomen soft, non-tender, + bowel sounds EXTREMITIES: Diminished pulses NEUROLOGICAL: Awake, alert, and oriented x 3. Non-focal. - Urinary Catheter Management Indwelling Urethral Catheter Cath placed during this visit: yes, but has since been removed by the nurse Urethral indwelling: Yes Reason for continuing: Chronic Urinary Retention Insertion date: 02/26/18 Insertion time: 16:00 Removal date: 02/26/18 Removal time: 15:30 Assessment and Plan - Assessment (1) Acute renal failure Code(s): N17.9 - Acute kidney failure, unspecified Status: Acute (2) Chronic kidney disease Code(s): N18.9 - Chronic kidney disease, unspecified Status: Acute (3) Shock Code(s): R57.9 - Shock, unspecified Status: Acute (4) BMI 50.0-59.9, adult Code(s): Z68.43 - Body mass index (BMI) 50-59.9, adult Status: Chronic (5) Diabetes mellitus Code(s): E11.9 - Type 2 diabetes mellitus without complications Status: Chronic Qualifiers: Diabetes mellitus type: type 2 Diabetes mellitus alf insulin use: with terminal block assembler use Diabetes mellitus complication status: with kidney complications Diabetes mellitus complication detail: with other kidney complication Qualified Code(s): E11.29 - Type 2 diabetes mellitus with other diabetic kidney complication; Z79.4 - care home (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 - Plan Patient has progressive renal failure congestive heart failure, atrial fibrillation/flutter Vas-Cath was reinserted Hemodialysis started Patient had hemodialysis yesterday 3 L of fluid been removed Potassium did improve Chest x-ray showed pleural effusions Repeat echocardiogram pericardial effusion seen as well as pleural effusions there is no cardiac tamponade Pul HTN pos Continue to monitor his progress hold Coumadin for PermCath insertion Tuesday Procedures - Arterial Line Size (Gauge): 20
--- NOTE | 2018-04-02 18:10 | P.PN ---
Subjective Interval history: ALERT NO SOB AT REST ON O2 N/C Physical Exam Vital signs: Vital Signs 04/01/18 20:00 04/02/18 00:00 04/02/18 00:55 Temperature 97.6 F 97.6 F Pulse Rate 91 H 96 H Respiratory Rate 18 17 Blood Pressure 106/52 L 106/49 L Pulse Oximetry 98 99 95 04/02/18 04:05 04/02/18 08:00 04/02/18 08:50 Temperature 98.0 F Pulse Rate 78 Respiratory Rate 18 Blood Pressure 99/53 L Pulse Oximetry 96 99 99 04/02/18 12:00 04/02/18 13:00 04/02/18 16:00 Temperature 98.0 F 97.7 F Pulse Rate 83 73 Respiratory Rate 18 17 Blood Pressure 108/51 L 106/51 L Pulse Oximetry 99 94 L 100 Intake & Output 04/01/18 04/02/18 04/02/18 18:59 06:59 18:59 Intake Total 930 / 930 120 / 120 1200 / 1200 Output Total 3030 / 3030 50 / 50 50 / 50 Balance -2100 / -2100 70 / 70 1150 / 1150 Weight 141.7 kg Intake: IV 150 / 150 NS Inj 1,000 ML @ 50 mls/hr IV. 0 / 0 CONT .Q20H ANA Rx#:[id number] Diflucan 100 mg Premix Bag 50 50 / 50 ML @ 50 mls/hr IV.SIG Q24H ANA Rx#:[id number] Rocephin Inj 1,000 MG In NS Inj 100 / 100 100 ML @ 200 mls/hr IV.SIG Q24H ANA Rx#:[id number] Oral 780 / 780 120 / 120 1200 / 1200 Output: Urine 50 / 50 Hemodialysis Amount 3000 / 3000 Urine Amount (Catheter) 30 / 30 50 / 50 Indwelling Urethral Catheter 30 / 30 50 / 50 Other: Date of Last Bowel Movement 04/01/18 04/01/18 04/01/18 # Bowel Movements 1 1 Narrative: GENERAL: alert, no acute distress. oriented x 3,. speeech clear SKIN: Warm and dry. HEAD: Normocephalic. EYES: No scleral icterus. No injection or drainage. NECK: Supple, trachea midline. No JVD or lymphadenopathy. VAS cath in place right CARDIOVASCULAR: sinus on exam, no rub RESPIRATORY: Breath sounds diminished at base . GASTROINTESTINAL: Abdomen soft, non-tender, + bowel sounds EXTREMITIES: Diminished pulses NEUROLOGICAL: Awake, alert, and oriented x 3. Non-focal. - Urinary Catheter Management Indwelling Urethral Catheter Cath placed during this visit: yes, but has since been removed by the nurse Urethral indwelling: Yes Reason for continuing: Chronic Urinary Retention Insertion date: 02/26/18 Insertion time: 16:00 Removal date: 02/26/18 Removal time: 15:30 Results - Labs CBC & Chem 7: 04/02/18 07:47 04/02/18 07:47 Laboratory Results - last 24 hr 04/02/18 04/02/18 04/02/18 07:47 07:47 07:47 WBC 8.8 RBC 2.67 L Hgb 7.7 L Hct 23.2 L MCV 86.7 MCH 28.7 MCHC 33.1 RDW 15.0 Plt Count 256 MPV 7.5 Neut % (Auto) 73.0 H Lymph % (Auto) 12.6 [place] % (Auto) 9.7 H Eos % (Auto) 3.7 Baso % (Auto) 1.0 Neut # (Auto) 6.4 Lymph # (Auto) 1.1 [place] # (Auto) 0.8 Eos # (Auto) 0.3 Baso # (Auto) 0.1 WBC Differential . Differential Comment Auto diff final PT 20.2 H D INR 2.0 Sodium 135 L Potassium 3.5 Chloride 96 L Carbon Dioxide 31.3 Anion Gap 8 BUN 19 H Creatinine 3.29 H Estimated GFR 19 L Random Glucose 105 Calcium 8.2 L Assessment and Plan - Plan RESPIRATORY FAILURE RENAL FAILURE ON DIALYSIS MIRTA/CSA PLAN O2 NEEDED BIPAP/SLEEP increase activity Procedures - Arterial Line Size (Gauge): 20
[2018-04-02] MEDS: QUEtiapine 25 MG Tablet PO SCH (22:14)
[2018-04-03] MEDS: Levothyroxine 50 MCG Tablet PO SCH (05:47)
[2018-04-03 06:21] LABS: Baso # (Auto) 0.1 th/mm3 (0.0-0.2); Eos # (Auto) 0.5 th/mm3 (0.0-0.4); Eos % (Auto) 5.2 % (0.0-4.0); Hematocrit 23.2 % (39.0-51.0); Hemoglobin 7.6 gm/dL (13.0-17.0); Lymph # (Auto) 1.2 th/mm3 (1.0-4.8); Lymph % (Auto) 13.7 % (9.0-44.0); Mean Corpuscular HGB Conc 32.7 % (32.0-36.0); Mean Corpuscular Hemoglobin 28.3 pg (27.0-34.0); Mean Corpuscular Volume 86.5 fL (80.0-100.0); Mean Platelet Volume 7.5 fL (7.0-11.0); Mono # (Auto) 0.6 th/mm3 (0.0-0.9); Mono % (Auto) 6.9 % (0.0-8.0); Neut # (Auto) 6.4 th/mm3 (1.8-7.7); Neut % (Auto) 73.2 % (16.0-70.0); Platelet Count 247 th/mm3 (150-450); Red Blood Count 2.68 mil/mm3 (4.50-5.90); White Blood Count 8.7 th/mm3 (4.0-11.0)
[2018-04-03 06:30] LABS: INR 1.9 Ratio; Prothrombin Time 19.1 sec (9.8-11.6)
[2018-04-03 06:46] LABS: Calcium 8.1 mg/dL (8.5-10.1); Carbon Dioxide 31.1 meq/L (21.0-32.0); Potassium 3.6 meq/L (3.5-5.1)
[2018-04-03] MEDS: Sod Chloride 0.9% Inj 1,000 ML IV.CONT SCH ×2 (09:46→18:22)
[2018-04-03] MEDS: Gabapentin 100 MG Capsule PO SCH ×2 (09:47→20:44)
[2018-04-03] MEDS: Amiodarone 200 MG Tablet PO SCH (09:47)
[2018-04-03] MEDS: Metoprolol Tartrate 25 MG Tablet PO SCH ×2 (09:47→20:44)
[2018-04-03] MEDS: Senna/Docusate Sodium 8.6/50 MG Tablet PO SCH ×2 (09:47→20:44)
[2018-04-03] MEDS: Nystatin 100,000 UNITS/GM Powder 15 GM Bottle TOPICAL SCH ×2 (09:47→20:45)
[2018-04-03] MEDS: Lactobacillus Acidophilus/L. Spores Tablet PO SCH ×3 (09:47→18:16)
[2018-04-03] MEDS: Ascorbic Acid 500 MG Tablet PO SCH ×2 (09:48→20:45)
--- NOTE | 2018-04-03 14:38 | P.PNNP ---
Subjective Interval history: Patient resting on BiPAP Physical Exam Vital signs: Vital Signs 04/02/18 16:00 04/02/18 17:00 04/02/18 20:00 Temperature 97.7 F 97.9 F Pulse Rate 73 69 Respiratory Rate 17 17 Blood Pressure 106/51 L 104/41 L Pulse Oximetry 100 96 100 04/02/18 21:00 04/02/18 21:42 04/02/18 22:15 Temperature Pulse Rate Respiratory Rate 17 Blood Pressure 134/64 Pulse Oximetry 98 04/03/18 00:00 04/03/18 00:56 04/03/18 03:46 Temperature 98.1 F Pulse Rate 61 Respiratory Rate 17 Blood Pressure 102/54 L Pulse Oximetry 99 97 98 04/03/18 07:40 04/03/18 08:00 04/03/18 09:00 Temperature 97.1 F L Pulse Rate 61 Respiratory Rate 20 20 Blood Pressure 102/51 L Pulse Oximetry 98 96 98 04/03/18 09:30 04/03/18 11:20 Temperature 97.3 F L Pulse Rate 68 Respiratory Rate 20 Blood Pressure 104/64 Pulse Oximetry 98 96 Intake & Output 04/02/18 04/03/18 04/03/18 18:59 06:59 18:59 Intake Total 1300 / 1300 50 / 50 Output Total 50 / 50 100 / 100 Balance 1250 / 1250 -50 / -50 Weight 139.4 kg Intake: IV 100 / 100 50 / 50 Diflucan 100 mg Premix Bag 50 50 / 50 ML @ 50 mls/hr IV.SIG Q24H ANA Rx#:[id number] Rocephin Inj 1,000 MG In NS Inj 100 / 100 100 ML @ 200 mls/hr IV.SIG Q24H ANA Rx#:[id number] Oral 1200 / 1200 Output: Urine 100 / 100 Urine Amount (Catheter) 50 / 50 Indwelling Urethral Catheter 50 / 50 Other: Date of Last Bowel Movement 04/01/18 04/01/18 # Bowel Movements 1 Narrative: GENERAL: alert, no acute distress. oriented x 3,. speeech clear SKIN: Warm and dry. HEAD: Normocephalic. EYES: No scleral icterus. No injection or drainage. NECK: Supple, trachea midline. No JVD or lymphadenopathy. VAS cath in place right CARDIOVASCULAR: sinus on exam, no rub RESPIRATORY: Breath sounds diminished at base . GASTROINTESTINAL: Abdomen soft, non-tender, + bowel sounds EXTREMITIES: Diminished pulses NEUROLOGICAL: Awake, alert, and oriented x 3. Non-focal. - Urinary Catheter Management Indwelling Urethral Catheter Cath placed during this visit: yes, but has since been removed by the nurse Urethral indwelling: Yes Reason for continuing: Chronic Urinary Retention Insertion date: 03/30/18 Insertion time: 16:00 Removal date: 03/30/18 Removal time: 15:30 Assessment and Plan - Assessment (1) Acute renal failure Code(s): N17.9 - Acute kidney failure, unspecified Status: Acute (2) Chronic kidney disease Code(s): N18.9 - Chronic kidney disease, unspecified Status: Acute (3) Shock Code(s): R57.9 - Shock, unspecified Status: Acute (4) BMI 50.0-59.9, adult Code(s): Z68.43 - Body mass index (BMI) 50-59.9, adult Status: Chronic (5) Diabetes mellitus Code(s): E11.9 - Type 2 diabetes mellitus without complications Status: Chronic Qualifiers: Diabetes mellitus type: type 2 Diabetes 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: with petroleum terminal plant operator use Diabetes mellitus complication status: with kidney complications Diabetes mellitus complication detail: with other kidney complication Qualified Code(s): E11.29 - Type 2 diabetes mellitus with other diabetic kidney complication; Z79.4 - [facility] (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 - Plan Patient has progressive renal failure congestive heart failure, atrial fibrillation/flutter Vas-Cath was reinserted Hemodialysis started Patient had hemodialysis started last week and had last dialysis on Tuesday 3 L of fluid been removed Potassium did improve Chest x-ray showed pleural effusions Repeat echocardiogram pericardial effusion seen as well as pleural effusions there is no cardiac tamponade Pul HTN pos Continue to monitor his progress hold Coumadin for PermCath insertion tomorrow as INR is still elevated 1.9 Procedures - Arterial Line Size (Gauge): 20
--- NOTE | 2018-04-03 14:54 | P.PNIM ---
Physical Exam Vital signs: Vital Signs 04/02/18 16:00 04/02/18 17:00 04/02/18 20:00 Temperature 97.7 F 97.9 F Pulse Rate 73 69 Respiratory Rate 17 17 Blood Pressure 106/51 L 104/41 L Pulse Oximetry 100 96 100 04/02/18 21:00 04/02/18 21:42 04/02/18 22:15 Temperature Pulse Rate Respiratory Rate 17 Blood Pressure 134/64 Pulse Oximetry 98 04/03/18 00:00 04/03/18 00:56 04/03/18 03:46 Temperature 98.1 F Pulse Rate 61 Respiratory Rate 17 Blood Pressure 102/54 L Pulse Oximetry 99 97 98 04/03/18 07:40 04/03/18 08:00 04/03/18 09:00 Temperature 97.1 F L Pulse Rate 61 Respiratory Rate 20 20 Blood Pressure 102/51 L Pulse Oximetry 98 96 98 04/03/18 09:30 04/03/18 11:20 Temperature 97.3 F L Pulse Rate 68 Respiratory Rate 20 Blood Pressure 104/64 Pulse Oximetry 98 96 Intake & Output 04/02/18 04/03/18 04/03/18 18:59 06:59 18:59 Intake Total 1300 / 1300 50 / 50 Output Total 50 / 50 100 / 100 Balance 1250 / 1250 -50 / -50 Weight 139.4 kg Intake: IV 100 / 100 50 / 50 Diflucan 100 mg Premix Bag 50 50 / 50 ML @ 50 mls/hr IV.SIG Q24H ANA Rx#:[id number] Rocephin Inj 1,000 MG In NS Inj 100 / 100 100 ML @ 200 mls/hr IV.SIG Q24H ANA Rx#:[id number] Oral 1200 / 1200 Output: Urine 100 / 100 Urine Amount (Catheter) 50 / 50 Indwelling Urethral Catheter 50 / 50 Other: Date of Last Bowel Movement 04/01/18 04/01/18 # Bowel Movements 1 Urinary Catheter Management Indwelling Urethral Catheter: Cath placed during this visit: yes, but has since been removed by the nurse Urethral indwelling: Yes Reason for continuing: Chronic Urinary Retention Insertion date: 03/30/18 Insertion time: 16:00 Removal date: 03/30/18 Removal time: 15:30 Results Labs CBC & Chem 7: 04/03/18 05:45 04/03/18 05:45 Assessment and Plan (1) Acute renal failure: Code(s): N17.9 - Acute kidney failure, unspecified Status: Acute (2) Chronic kidney disease: Code(s): N18.9 - Chronic kidney disease, unspecified Status: Acute (3) Shock: Code(s): R57.9 - Shock, unspecified Status: Acute (4) BMI 50.0-59.9, adult: Code(s): Z68.43 - Body mass index (BMI) 50-59.9, adult Status: Chronic (5) Diabetes mellitus: Code(s): E11.9 - Type 2 diabetes mellitus without complications Status: Chronic Plan 72-year-old male with a diagnosis of morbid obesity, depression, dementia, coronary artery disease, hypertension, dyslipidemia, diabetes, atrial fibrillation, hypothyroidism, peripheral neuropathy, chronic kidney disease stage IV, patient has a history of chronic opiate use. The patient was initially sent from [facility] where he was found to have altered mental status, low blood pressure and a heart rate in the 30s and was given atropine. Patient also had a low systolic blood pressure and needed IV pressors. Patient was also in acute kidney injury with elevated potassium which was not improving with treatment and needed hemodialysis. Acute kidney injury on chronic kidney disease stage IIIb- creatinine trending up -oliguric -Nephrology following - at one point was on HD -Continue to monitor input and output -renal functioning worsening with shortness of breath -Hemodialysis restarted 03/30, HD 03/31 -Dr. Leal ff -for perm cath tomorrow, INR elevated today Hx Atrial flutter/atrial fibrillation/CAD CHF with preserved EF Pericardial effusion on echo - no evidence of tamponade hemodynamically stable Continue Coumadin- on hold for permcath umer, INR 1.9 today SR on exam today Continue amiodarone Continue Lopressor Cardiology following continue hemodialysis- effusion should improve with HD Obstructive sleep apnea Right-sided pleural effusion status post thoracentesis Continue BiPAP at night Respiratory status has stabilized compared to time of admit Patient is status post right-sided thoracentesis Pulmonology following Continue oxygen supplementation as needed Abdominal pain - improved -no complaints today - po - eating more per patient -CT of abdomen/pelvis- no acute findings Acute metabolic encephalopathy Resolved History of TIA Continue statin Continue Coumadin Depression Follow clinically Continue Seroquel Continue Cymbalta Peripheral neuropathy Continue gabapentin Dementia Mild at baseline Continue memantine 5 mg daily Hypothyroidism Continue levothyroxine. 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
--- NOTE | 2018-04-03 16:54 | P.PN ---
Subjective Interval history: alert no sob on bipap Physical Exam Vital signs: Vital Signs 04/02/18 17:00 04/02/18 20:00 04/02/18 21:00 Temperature 97.9 F Pulse Rate 69 Respiratory Rate 17 17 Blood Pressure 104/41 L Pulse Oximetry 96 100 04/02/18 21:42 04/02/18 22:15 04/03/18 00:00 Temperature 98.1 F Pulse Rate 61 Respiratory Rate 17 Blood Pressure 134/64 102/54 L Pulse Oximetry 98 99 04/03/18 00:56 04/03/18 03:46 04/03/18 07:40 Temperature 97.1 F L Pulse Rate 61 Respiratory Rate 20 Blood Pressure 102/51 L Pulse Oximetry 97 98 98 04/03/18 08:00 04/03/18 09:00 04/03/18 09:30 Temperature Pulse Rate Respiratory Rate 20 Blood Pressure Pulse Oximetry 96 98 98 04/03/18 11:20 04/03/18 13:00 04/03/18 14:50 Temperature 97.3 F L 97.4 F L Pulse Rate 68 60 Respiratory Rate 20 20 Blood Pressure 104/64 123/53 L Pulse Oximetry 96 98 97 04/03/18 16:20 Temperature Pulse Rate Respiratory Rate Blood Pressure Pulse Oximetry 95 Intake & Output 04/02/18 04/03/18 04/03/18 18:59 06:59 18:59 Intake Total 1300 / 1300 50 / 50 360 / 360 Output Total 50 / 50 100 / 100 Balance 1250 / 1250 -50 / -50 360 / 360 Weight 139.4 kg Intake: IV 100 / 100 50 / 50 Diflucan 100 mg Premix Bag 50 50 / 50 ML @ 50 mls/hr IV.SIG Q24H ANA Rx#:[id number] Rocephin Inj 1,000 MG In NS Inj 100 / 100 100 ML @ 200 mls/hr IV.SIG Q24H ANA Rx#:[id number] Oral 1200 / 1200 360 / 360 Output: Urine 100 / 100 Urine Amount (Catheter) 50 / 50 Indwelling Urethral Catheter 50 / 50 Other: Date of Last Bowel Movement 04/01/18 04/01/18 # Bowel Movements 1 Narrative: GENERAL: alert, no acute distress. oriented x 3,. speeech clear SKIN: Warm and dry. HEAD: Normocephalic. EYES: No scleral icterus. No injection or drainage. NECK: Supple, trachea midline. No JVD or lymphadenopathy. VAS cath in place right CARDIOVASCULAR: sinus on exam, no rub RESPIRATORY: Breath sounds diminished at base . GASTROINTESTINAL: Abdomen soft, non-tender, + bowel sounds EXTREMITIES: Diminished pulses NEUROLOGICAL: Awake, alert, and oriented x 3. Non-focal. - Urinary Catheter Management Indwelling Urethral Catheter Cath placed during this visit: yes, but has since been removed by the nurse Urethral indwelling: Yes Reason for continuing: Chronic Urinary Retention Insertion date: 03/30/18 Insertion time: 16:00 Removal date: 03/30/18 Removal time: 15:30 Results - Labs CBC & Chem 7: 04/03/18 05:45 04/03/18 05:45 Laboratory Results - last 24 hr 04/03/18 04/03/18 04/03/18 05:45 05:45 05:45 WBC 8.7 RBC 2.68 L Hgb 7.6 L Hct 23.2 L MCV 86.5 MCH 28.3 MCHC 32.7 RDW 15.0 Plt Count 247 MPV 7.5 Neut % (Auto) 73.2 H Lymph % (Auto) 13.7 [place] % (Auto) 6.9 Eos % (Auto) 5.2 H Baso % (Auto) 1.0 Neut # (Auto) 6.4 Lymph # (Auto) 1.2 [place] # (Auto) 0.6 Eos # (Auto) 0.5 H Baso # (Auto) 0.1 WBC Differential . Differential Comment Auto diff final PT 19.1 H INR 1.9 Sodium 133 L Potassium 3.6 Chloride 94 L Carbon Dioxide 31.1 Anion Gap 8 BUN 24 H Creatinine 3.92 H Estimated GFR 15 L Random Glucose 108 H Calcium 8.1 L Assessment and Plan - Plan RESPIRATORY FAILURE RENAL FAILURE ON DIALYSIS MIRTA/CSA PLAN O2 NEEDED BIPAP/SLEEP increase activity Procedures - Arterial Line Size (Gauge): 20
[2018-04-03] MEDS: QUEtiapine 25 MG Tablet PO SCH (20:45)
[2018-04-04] MEDS: Levothyroxine 50 MCG Tablet PO SCH (06:12)
[2018-04-04] MEDS ORDERED: Sodium Chlor 0.9% Inj 250 ML ONE (09:17)
--- NOTE | 2018-04-04 09:17 | P.PN ---
Subjective Interval history: ALERT ON BPAP NO SOB Physical Exam Vital signs: Vital Signs 04/03/18 09:30 04/03/18 11:20 04/03/18 13:00 Temperature 97.3 F L Pulse Rate 68 Respiratory Rate 20 Blood Pressure 104/64 Pulse Oximetry 98 96 98 04/03/18 14:50 04/03/18 16:20 04/03/18 17:00 Temperature 97.4 F L Pulse Rate 60 Respiratory Rate 20 Blood Pressure 123/53 L Pulse Oximetry 97 95 98 04/03/18 20:00 04/03/18 21:23 04/04/18 00:00 Temperature 98.2 F 97.7 F Pulse Rate 70 60 Respiratory Rate 20 21 Blood Pressure 113/50 L 113/51 L Pulse Oximetry 100 95 100 04/04/18 08:00 Temperature 97.8 F Pulse Rate 63 Respiratory Rate 19 Blood Pressure 99/46 L Pulse Oximetry 99 Intake & Output 04/03/18 04/04/18 04/04/18 18:59 06:59 18:59 Intake Total 910 / 910 120 / 120 Output Total 120 / 120 Balance 910 / 910 0 / 0 Weight 139 kg Intake: IV 150 / 150 Diflucan 100 mg Premix Bag 50 50 / 50 ML @ 50 mls/hr IV.SIG Q24H ANA Rx#:[id number] Rocephin Inj 1,000 MG In NS Inj 100 / 100 100 ML @ 200 mls/hr IV.SIG Q24H ANA Rx#:[id number] Oral 760 / 760 120 / 120 Output: Urine Amount (Catheter) 120 / 120 Indwelling Urethral Catheter 120 / 120 Other: Date of Last Bowel Movement 04/01/18 04/04/17 # Bowel Movements 1 Narrative: GENERAL: alert, no acute distress. oriented x 3,. speeech clear SKIN: Warm and dry. HEAD: Normocephalic. EYES: No scleral icterus. No injection or drainage. NECK: Supple, trachea midline. No JVD or lymphadenopathy. VAS cath in place right CARDIOVASCULAR: sinus on exam, no rub RESPIRATORY: Breath sounds diminished at base . GASTROINTESTINAL: Abdomen soft, non-tender, + bowel sounds EXTREMITIES: Diminished pulses NEUROLOGICAL: Awake, alert, and oriented x 3. Non-focal. - Urinary Catheter Management Indwelling Urethral Catheter Cath placed during this visit: yes, but has since been removed by the nurse Urethral indwelling: Yes Reason for continuing: Chronic Urinary Retention Insertion date: 03/30/18 Insertion time: 16:00 Removal date: 03/30/18 Removal time: 15:30 Results - Labs CBC & Chem 7: 04/03/18 05:45 04/03/18 05:45 Assessment and Plan - Plan RESPIRATORY FAILURE RENAL FAILURE ON DIALYSIS MIRTA/CSA PLAN O2 NEEDED BIPAP/SLEEP increase activity Procedures - Arterial Line Size (Gauge): 20
[2018-04-04] MEDS ORDERED: ceFAZolin 1 GM Premix Inj 2 GM/100 ML PIGGYBACK IV.SIG ONE (09:24)
[2018-04-04 09:30] LABS: Baso # (Auto) 0.1 th/mm3 (0.0-0.2); Baso % (Auto) 0.9 % (0.0-2.0); Eos # (Auto) 0.4 th/mm3 (0.0-0.4); Eos % (Auto) 3.5 % (0.0-4.0); Hematocrit 23.3 % (39.0-51.0); Hemoglobin 7.6 gm/dL (13.0-17.0); Lymph # (Auto) 1.1 th/mm3 (1.0-4.8); Lymph % (Auto) 9.7 % (9.0-44.0); Mean Corpuscular HGB Conc 32.9 % (32.0-36.0); Mean Corpuscular Hemoglobin 28.3 pg (27.0-34.0); Mean Platelet Volume 7.3 fL (7.0-11.0); Mono # (Auto) 0.7 th/mm3 (0.0-0.9); Mono % (Auto) 6.4 % (0.0-8.0); Neut % (Auto) 79.5 % (16.0-70.0); Platelet Count 234 th/mm3 (150-450); Red Blood Count 2.71 mil/mm3 (4.50-5.90); Red Cell Distribution Width 14.8 % (11.6-17.2); White Blood Count 11.4 th/mm3 (4.0-11.0)
[2018-04-04] MEDS ORDERED: *Heparin 10,000 UNITS/10 ML Vial Periprocedural ONLY ONE (09:31)
[2018-04-04] MEDS ORDERED: Lidocaine 1%/Epinephrine 1:100,000 Inj 20 ML Vial ONE (09:31)
[2018-04-04] MEDS ORDERED: fentaNYL Citrate Inj 250 MCG/5 ML Ampul ONE (09:38)
[2018-04-04 09:39] LABS: INR 1.9 Ratio; Prothrombin Time 19.7 sec (9.8-11.6)
[2018-04-04 10:03] LABS: Calcium 8.4 mg/dL (8.5-10.1); Carbon Dioxide 28.5 meq/L (21.0-32.0); Potassium 3.8 meq/L (3.5-5.1)
[2018-04-04] MEDS: Amiodarone 200 MG Tablet PO SCH (12:17)
[2018-04-04] MEDS: Lactobacillus Acidophilus/L. Spores Tablet PO SCH ×3 (12:17→18:08)
[2018-04-04] MEDS: Senna/Docusate Sodium 8.6/50 MG Tablet PO SCH ×2 (12:20→20:05)
[2018-04-04] MEDS: Metoprolol Tartrate 25 MG Tablet PO SCH ×2 (12:20→20:05)
[2018-04-04] MEDS: Ascorbic Acid 500 MG Tablet PO SCH ×2 (12:21→20:05)
[2018-04-04] MEDS: Nystatin 100,000 UNITS/GM Powder 15 GM Bottle TOPICAL SCH ×2 (12:23→20:05)
[2018-04-04] MEDS: Gabapentin 100 MG Capsule PO SCH ×2 (12:23→20:05)
--- NOTE | 2018-04-04 13:18 | P.PNIM ---
Subjective Interval history: Follow-up visit PIERRE superimposed on CKD with worsening renal function, HD, pericardial effusion Patient seen status post tunneled dialysis catheter placement to right upper chest wall. He reports feeling fatigued and states he is going to take a nap. No distress noted. Physical Exam Vital signs: Vital Signs 04/03/18 14:50 04/03/18 16:20 04/03/18 17:00 Temperature 97.4 F L Pulse Rate 60 Respiratory Rate 20 Blood Pressure 123/53 L Pulse Oximetry 97 95 98 04/03/18 20:00 04/03/18 21:23 04/04/18 00:00 Temperature 98.2 F 97.7 F Pulse Rate 70 60 Respiratory Rate 20 21 Blood Pressure 113/50 L 113/51 L Pulse Oximetry 100 95 100 04/04/18 08:00 04/04/18 09:35 04/04/18 10:35 Temperature 97.8 F 97.7 F Pulse Rate 63 75 Respiratory Rate 19 20 Blood Pressure 99/46 L 131/54 L Pulse Oximetry 95 99 94 L 04/04/18 10:50 04/04/18 11:05 04/04/18 11:20 Temperature Pulse Rate 74 73 73 Respiratory Rate 20 20 20 Blood Pressure 122/57 L 123/59 L 142/70 H Pulse Oximetry 94 L 94 L 95 04/04/18 12:15 Temperature 97.6 F Pulse Rate 71 Respiratory Rate 20 Blood Pressure 118/51 L Pulse Oximetry 99 Intake & Output 04/03/18 04/04/18 04/04/18 18:59 06:59 18:59 Intake Total 910 / 910 120 / 120 Output Total 120 / 120 Balance 910 / 910 0 / 0 Weight 139 kg Intake: IV 150 / 150 Diflucan 100 mg Premix Bag 50 50 / 50 ML @ 50 mls/hr IV.SIG Q24H ANA Rx#:[id number] Rocephin Inj 1,000 MG In NS Inj 100 / 100 100 ML @ 200 mls/hr IV.SIG Q24H ANA Rx#:[id number] Oral 760 / 760 120 / 120 Output: Urine Amount (Catheter) 120 / 120 Indwelling Urethral Catheter 120 / 120 Other: Date of Last Bowel Movement 04/01/18 04/04/17 # Bowel Movements 1 Narrative: GENERAL: fatigued, no acute distress SKIN: warm and dry HEAD: normocephalic, atraumatic EYES: No scleral icterus. No injection or drainage. NECK: Supple, trachea midline. No JVD or lymphadenopathy. CARDIOVASCULAR: Regular rate and rhythm without murmurs, gallops, or rubs. Right upper chest wall tunneled dialysis catheter. RESPIRATORY: Breath sounds equal bilaterally. No accessory muscle use. GASTROINTESTINAL: Abdomen soft, non-tender, nondistended. MUSCULOSKELETAL: No cyanosis, or edema. Urinary Catheter Management Indwelling Urethral Catheter: Cath placed during this visit: yes, but has since been removed by the nurse Urethral indwelling: Yes Reason for continuing: Other continuation reason Insertion date: 03/30/18 Insertion time: 16:00 Removal date: 03/30/18 Removal time: 15:30 Results Labs CBC & Chem 7: 04/04/18 09:10 04/04/18 09:10 Assessment and Plan (1) Acute renal failure: Code(s): N17.9 - Acute kidney failure, unspecified Status: Acute (2) Chronic kidney disease: Code(s): N18.9 - Chronic kidney disease, unspecified Status: Acute (3) Shock: Code(s): R57.9 - Shock, unspecified Status: Acute (4) BMI 50.0-59.9, adult: Code(s): Z68.43 - Body mass index (BMI) 50-59.9, adult Status: Chronic (5) Diabetes mellitus: Code(s): E11.9 - Type 2 diabetes mellitus without complications Status: Chronic Plan 72-year-old male with a diagnosis of morbid obesity, depression, dementia, coronary artery disease, hypertension, dyslipidemia, diabetes, atrial fibrillation, hypothyroidism, peripheral neuropathy, chronic kidney disease stage IV, patient has a history of chronic opiate use. The patient was initially sent from [facility] where he was found to have altered mental status, low blood pressure and a heart rate in the 30s and was given atropine. Patient also had a low systolic blood pressure and needed IV pressors. Patient was also in acute kidney injury with elevated potassium which was not improving with treatment and needed hemodialysis. Acute kidney injury on chronic kidney disease stage IIIb- creatinine trending up -oliguric -Nephrology following - at one point was on HD -Continue to monitor input and output -renal functioning worsening with shortness of breath -Hemodialysis restarted 03/30, HD 03/31 -Dr. Leal ff -perm cath placed 04/04/18 Hx Atrial flutter/atrial fibrillation/CAD CHF with preserved EF Pericardial effusion on echo - no evidence of tamponade hemodynamically stable -Continue Coumadin- was on hold for permacath, INR 1.9 today. Will resume once cleared per IR. -Continue amiodarone -Continue Lopressor -Cardiology following -continue hemodialysis- effusion should improve with HD Obstructive sleep apnea Right-sided pleural effusion status post thoracentesis -Continue BiPAP at night -Respiratory status has stabilized compared to time of admit -Patient is status post right-sided thoracentesis -Pulmonology following Continue oxygen supplementation as needed Abdominal pain - improved -no complaints today - po - eating more per patient -CT of abdomen/pelvis- no acute findings Acute metabolic encephalopathy -Resolved History of TIA -Continue statin -Continue Coumadin Depression -Follow clinically -Continue Seroquel -Continue Cymbalta Peripheral neuropathy -Continue gabapentin Dementia -Mild at baseline -Continue memantine 5 mg daily Hypothyroidism -Continue levothyroxine. Diabetes mellitus type 2 -Follow blood sugars -Diet controlled -Diabetic diet Global weakness -Continue PT/OT MDM: self Code: Full GI ppx: PPI DVT prophylaxis: Coumadin on hold for perm cath placement Discharge planning: will need SNF Discussed with: RN, patient Progress Note: Quality VTE Deep Vein Thrombosis/Pulmonary Embolism Present on Admission: No Procedures Arterial Line Size (Gauge): 20 _ (1) Acute renal failure Qualifiers: Acute renal failure type: (2) Chronic kidney disease Qualifiers: Chronic kidney disease stage: (3) Diabetes mellitus Qualifiers: Diabetes mellitus type: type 2 Diabetes mellitus dedicated intermodal truck driver insulin use: with dedicated intermodal truck driver use Diabetes mellitus complication status: with kidney complications Diabetes mellitus complication detail: with other kidney complication Diabetic retinopathy severity: Proliferative retinopathy type: Diabetes mellitus macular edema: Laterality: Chronic kidney disease stage: Qualified Code(s): E11.29 - Type 2 diabetes mellitus with other diabetic kidney complication; Z79.4 - terminal 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
--- NOTE | 2018-04-04 14:50 | P.PNNP ---
Subjective Interval history: Patient has permacath placed seen during hemodialysis Physical Exam Vital signs: Vital Signs 04/03/18 14:50 04/03/18 16:20 04/03/18 17:00 Temperature 97.4 F L Pulse Rate 60 Respiratory Rate 20 Blood Pressure 123/53 L Pulse Oximetry 97 95 98 04/03/18 20:00 04/03/18 21:23 04/04/18 00:00 Temperature 98.2 F 97.7 F Pulse Rate 70 60 Respiratory Rate 20 21 Blood Pressure 113/50 L 113/51 L Pulse Oximetry 100 95 100 04/04/18 08:00 04/04/18 09:35 04/04/18 10:35 Temperature 97.8 F 97.7 F Pulse Rate 63 75 Respiratory Rate 19 20 Blood Pressure 99/46 L 131/54 L Pulse Oximetry 95 99 94 L 04/04/18 10:50 04/04/18 11:05 04/04/18 11:20 Temperature Pulse Rate 74 73 73 Respiratory Rate 20 20 20 Blood Pressure 122/57 L 123/59 L 142/70 H Pulse Oximetry 94 L 94 L 95 04/04/18 12:15 04/04/18 13:00 Temperature 97.6 F Pulse Rate 71 Respiratory Rate 20 Blood Pressure 118/51 L Pulse Oximetry 99 99 Intake & Output 04/03/18 04/04/18 04/04/18 18:59 06:59 18:59 Intake Total 910 / 910 120 / 120 Output Total 120 / 120 Balance 910 / 910 0 / 0 Weight 139 kg Intake: IV 150 / 150 Diflucan 100 mg Premix Bag 50 50 / 50 ML @ 50 mls/hr IV.SIG Q24H ANA Rx#:[id number] Rocephin Inj 1,000 MG In NS Inj 100 / 100 100 ML @ 200 mls/hr IV.SIG Q24H ANA Rx#:[id number] Oral 760 / 760 120 / 120 Output: Urine Amount (Catheter) 120 / 120 Indwelling Urethral Catheter 120 / 120 Other: Date of Last Bowel Movement 04/01/18 04/04/17 # Bowel Movements 1 Narrative: GENERAL: alert, no acute distress. oriented x 3,. speeech clear SKIN: Warm and dry. HEAD: Normocephalic. EYES: No scleral icterus. No injection or drainage. NECK: Supple, trachea midline. No JVD or lymphadenopathy. VAS cath in place right CARDIOVASCULAR: sinus on exam, no rub RESPIRATORY: Breath sounds diminished at base . GASTROINTESTINAL: Abdomen soft, non-tender, + bowel sounds EXTREMITIES: Diminished pulses NEUROLOGICAL: Awake, alert, and oriented x 3. Non-focal. - Urinary Catheter Management Indwelling Urethral Catheter Cath placed during this visit: yes, but has since been removed by the nurse Urethral indwelling: Yes Reason for continuing: Other continuation reason Insertion date: 03/30/18 Insertion time: 16:00 Removal date: 03/30/18 Removal time: 15:30 Assessment and Plan - Assessment (1) Acute renal failure Code(s): N17.9 - Acute kidney failure, unspecified Status: Acute (2) Chronic kidney disease Code(s): N18.9 - Chronic kidney disease, unspecified Status: Acute (3) Shock Code(s): R57.9 - Shock, unspecified Status: Acute (4) BMI 50.0-59.9, adult Code(s): Z68.43 - Body mass index (BMI) 50-59.9, adult Status: Chronic (5) Diabetes mellitus Code(s): E11.9 - Type 2 diabetes mellitus without complications Status: Chronic Qualifiers: Diabetes mellitus type: type 2 Diabetes mellitus terminal clerk insulin use: with alf use Diabetes mellitus complication status: with kidney complications Diabetes mellitus complication detail: with other kidney complication Qualified Code(s): E11.29 - Type 2 diabetes mellitus with other diabetic kidney complication; Z79.4 - intermediate school teacher (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 - Plan Patient has progressive renal failure congestive heart failure, atrial fibrillation/flutter Vas-Cath was reinserted Hemodialysis started Patient had hemodialysis started last week He is seen today during dialysis via permacath UF of 3 L plan Chest x-ray showed pleural effusions Repeat echocardiogram pericardial effusion seen as well as pleural effusions there is no cardiac tamponade Pul HTN pos Continue to monitor his progress Resume Coumadin okay to discharge to long-term rehab he may need to [facility] Procedures - Arterial Line Size (Gauge): 20
--- NOTE | 2018-04-04 16:24 | IR ---
EXAM DATE: 04/04/2018 11:07 AM EST AGE/SEX: 73 years / Male INDICATIONS: Patient presents with renal failure and temporary dialysis catheter in need of tunneled dialysis catheter placement. CLINICAL DATA: This is the patient's initial encounter. Patient reports that signs and symptoms have been present for 2 weeks and indicates a pain score of 0/10. MEDICAL/SURGICAL HISTORY: . CHF, CAD, Renal failure, Diabetes, AMS. . Tonsillectomy, Heart cau terization. COMPARISON: No prior exams available for comparison. FLUORO TIME (min): 0.65 IMAGE SERIES: 1 RADIATION DOSE: 14 mGy CAKE SEDATION TIME (min): 30 MEDICATION(S): 0.5 mg midazolam (Versed) IV 25 mcg fentanyl (Sublimaze) IV Vancomycin within 2 hrs of procedure, Ancef (or alternative) within 1 hr of procedure. DEVICE(S): 23 cm 15 [place]i double lumen . . PROCEDURE: 1. Dialysis catheter placement. 2. Conscious sedation with continuous EKG and oximetry monitoring. The risks, benefits and alternatives to the procedure were explained and verbal and written consent w as obtained. The site was prepped in sterile fashion. Full sterile technique was used, including ca p, mask, sterile gloves and gown and a large sterile sheet. Hand hygiene and 2% chlorhexidine and/or betadine/alcohol prep was utilized per protocol for cutaneous antisepsis. The skin and subcutaneous tissues were infiltrated with local anesthetic solution. With fluoroscopic guidance a dermatotomy was created using the existing venous access. A subcutaneou s tunnel was created in a retrograde fashion the catheter was pulled through the tunnel. The cathete r was flushed and assembled and locked with heparin. The catheter was sutured in place. Conscious sedation was performed with the prescribed dosages and duration as above in the presence of an independent trained radiology nurse to assist in the monitoring of the patient. EKG and oximetry remained stable throughout the procedure. The patient tolerated the procedure well and there were n o complications. The patient was sent to post anesthesia recovery in stable condition. CONCLUSION: 1. Uncomplicated Dialysis catheter placement as above. Electronically signed by: Abram Brink MD Board Certified Radiologist 04/04/2018 4:23 PM EST
[2018-04-04] MEDS: Heparin 10,000 UNITS/10 ML Vial (for IV use) OTHER PRN (17:15)
[2018-04-04] MEDS: Sod Chloride 0.9% Inj 1,000 ML IV.CONT SCH (19:32)
[2018-04-04] MEDS: QUEtiapine 25 MG Tablet PO SCH (20:05)
[2018-04-05 06:32] LABS: Prothrombin Time 20.4 sec (9.8-11.6)
[2018-04-05] MEDS: Levothyroxine 50 MCG Tablet PO SCH (06:34)
[2018-04-05] MEDS: Metoprolol Tartrate 25 MG Tablet PO SCH ×2 (08:27→20:57)
[2018-04-05] MEDS: Gabapentin 100 MG Capsule PO SCH ×2 (08:27→20:56)
[2018-04-05] MEDS: Amiodarone 200 MG Tablet PO SCH (08:27)
[2018-04-05] MEDS: Lactobacillus Acidophilus/L. Spores Tablet PO SCH ×3 (08:27→17:01)
[2018-04-05] MEDS: Senna/Docusate Sodium 8.6/50 MG Tablet PO SCH ×2 (08:27→20:56)
[2018-04-05] MEDS: Ascorbic Acid 500 MG Tablet PO SCH ×2 (08:27→20:56)
[2018-04-05] MEDS: Nystatin 100,000 UNITS/GM Powder 15 GM Bottle TOPICAL SCH ×2 (13:12→20:57)
[2018-04-05] MEDS: Sod Chloride 0.9% Inj 1,000 ML IV.CONT SCH (13:13)
--- NOTE | 2018-04-05 13:35 | P.PNIM ---
Subjective Interval history: Follow-up visit worsening renal function s/p permacath placement, HD, pericardial effusion Patient seen and examined while resting in bed. Patient reports feeling extremely tired. Denies generalized body aches and pains. No cough, fevers or chills. Physical Exam Vital signs: Vital Signs 04/04/18 20:04 04/04/18 21:00 04/04/18 21:04 Temperature 98 F Pulse Rate 68 Respiratory Rate 16 Blood Pressure 132/60 Pulse Oximetry 99 99 99 04/04/18 21:52 04/05/18 00:00 04/05/18 01:00 Temperature 97.3 F L Pulse Rate 63 Respiratory Rate 20 Blood Pressure 137/63 Pulse Oximetry 98 98 98 04/05/18 04:32 04/05/18 08:00 04/05/18 09:03 Temperature 97.9 F Pulse Rate 67 Respiratory Rate 17 20 Blood Pressure 159/70 H Pulse Oximetry 98 99 04/05/18 12:00 Temperature 97.9 F Pulse Rate 66 Respiratory Rate 16 Blood Pressure 142/64 H Pulse Oximetry 98 Intake & Output 04/04/18 04/05/18 04/05/18 18:59 06:59 18:59 Intake Total 100 / 100 290 / 290 Output Total 3050 / 3050 50 / 50 Balance -2950 / -2950 240 / 240 Weight 140.7 kg Intake: IV 100 / 100 50 / 50 Diflucan 100 mg Premix Bag 50 50 / 50 ML @ 50 mls/hr IV.SIG Q24H ANA Rx#:[id number] Rocephin Inj 1,000 MG In NS Inj 100 / 100 100 ML @ 200 mls/hr IV.SIG Q24H ANA Rx#:[id number] Oral 240 / 240 Output: Hemodialysis Amount 3000 / 3000 Urine Amount (Catheter) 50 / 50 50 / 50 Indwelling Urethral Catheter 50 / 50 50 / 50 Other: Date of Last Bowel Movement 04/05/17 # Incontinent Bowel Movements 1 Narrative: GENERAL: fatigued, no acute distress SKIN: warm and dry HEAD: normocephalic, atraumatic EYES: No scleral icterus. No injection or drainage. NECK: Supple, trachea midline. No JVD or lymphadenopathy. CARDIOVASCULAR: Regular rate and rhythm without murmurs, gallops, or rubs. Right upper chest wall permacath. RESPIRATORY: Breath sounds equal bilaterally. No accessory muscle use. GASTROINTESTINAL: Abdomen soft, non-tender, nondistended. MUSCULOSKELETAL: No cyanosis, or edema. Urinary Catheter Management Indwelling Urethral Catheter: Cath placed during this visit: yes, but has since been removed by the nurse Urethral indwelling: Yes Reason for continuing: Chronic Urinary Retention Insertion date: 03/30/17 Insertion time: 16:00 Removal date: 03/30/18 Removal time: 15:30 Results Labs CBC & Chem 7: 04/04/18 09:10 04/04/18 09:10 Imaging Imaging: Impressions Catheter Placement 04/04/18 08:00 CONCLUSION: 1. Uncomplicated Dialysis catheter placement as above. Assessment and Plan (1) Acute renal failure: Code(s): N17.9 - Acute kidney failure, unspecified Status: Acute (2) Chronic kidney disease: Code(s): N18.9 - Chronic kidney disease, unspecified Status: Acute (3) Shock: Code(s): R57.9 - Shock, unspecified Status: Acute (4) BMI 50.0-59.9, adult: Code(s): Z68.43 - Body mass index (BMI) 50-59.9, adult Status: Chronic (5) Diabetes mellitus: Code(s): E11.9 - Type 2 diabetes mellitus without complications Status: Chronic Plan 72-year-old male with a diagnosis of morbid obesity, depression, dementia, coronary artery disease, hypertension, dyslipidemia, diabetes, atrial fibrillation, hypothyroidism, peripheral neuropathy, chronic kidney disease stage IV, patient has a history of chronic opiate use. The patient was initially sent from [facility] where he was found to have altered mental status, low blood pressure and a heart rate in the 30s and was given atropine. Patient also had a low systolic blood pressure and needed IV pressors. Patient was also in acute kidney injury with elevated potassium which was not improving with treatment and needed hemodialysis. Acute kidney injury on chronic kidney disease stage IIIb- creatinine trending up -oliguric, monitor I&O closely -Nephrology Dr Leal following -Continue to monitor input and output -Hemodialysis restarted 03/30 -permacath placed 04/04/18 Hx Atrial flutter/atrial fibrillation/CAD CHF with preserved EF Pericardial effusion on echo - no evidence of tamponade hemodynamically stable -resumed Coumadin- was on hold for permacath, INR 2.0 and therapeutic -Continue amiodarone -Continue Lopressor -Cardiology following -continue hemodialysis- effusion should improve with HD Obstructive sleep apnea Right-sided pleural effusion status post thoracentesis -Continue BiPAP at night -Respiratory status has stabilized compared to time of admit -Patient is status post right-sided thoracentesis -Pulmonology following -Continue oxygen supplementation as needed Abdominal pain - improved -no complaints, tolerating PO food intake -CT of abdomen/pelvis- no acute findings Acute metabolic encephalopathy -Resolved History of TIA -Continue statin -Continue Coumadin Depression -Follow clinically -Continue Seroquel -Continue Cymbalta Peripheral neuropathy -Continue gabapentin Dementia -Mild at baseline -Continue memantine 5 mg daily Hypothyroidism -Continue levothyroxine. Diabetes mellitus type 2 -Follow blood sugars -Diet controlled -Diabetic diet Global weakness -Continue PT/OT MDM: self Code: Full GI ppx: PPI DVT prophylaxis: Coumadin on hold for perm cath placement Discharge planning: will need SNF, plan to discharge to [facility] tomorrow. CM assisting. Discussed with: RN, patient Progress Note: Quality VTE Deep Vein Thrombosis/Pulmonary Embolism Present on Admission: No Procedures Arterial Line Size (Gauge): 20 _ (1) Acute renal failure Qualifiers: Acute renal failure type: (2) Chronic kidney disease Qualifiers: Chronic kidney disease stage: (3) Diabetes mellitus Qualifiers: Diabetes mellitus type: type 2 Diabetes mellitus terminal clerk insulin use: with terminal clerk use Diabetes mellitus complication status: with kidney complications Diabetes mellitus complication detail: with other kidney complication Diabetic retinopathy severity: Proliferative retinopathy type: Diabetes mellitus macular edema: Laterality: Chronic kidney disease stage: Qualified Code(s): E11.29 - Type 2 diabetes mellitus with other diabetic kidney complication; 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
--- NOTE | 2018-04-05 14:20 | P.PNNP ---
Subjective Interval history: Patient is baseline resting Physical Exam Vital signs: Vital Signs 04/04/18 20:04 04/04/18 21:00 04/04/18 21:04 Temperature 98 F Pulse Rate 68 Respiratory Rate 16 Blood Pressure 132/60 Pulse Oximetry 99 99 99 04/04/18 21:52 04/05/18 00:00 04/05/18 01:00 Temperature 97.3 F L Pulse Rate 63 Respiratory Rate 20 Blood Pressure 137/63 Pulse Oximetry 98 98 98 04/05/18 04:32 04/05/18 08:00 04/05/18 09:03 Temperature 97.9 F Pulse Rate 67 Respiratory Rate 17 20 Blood Pressure 159/70 H Pulse Oximetry 98 99 04/05/18 12:00 Temperature 97.9 F Pulse Rate 66 Respiratory Rate 16 Blood Pressure 142/64 H Pulse Oximetry 98 Intake & Output 04/04/18 04/05/18 04/05/18 18:59 06:59 18:59 Intake Total 100 / 100 290 / 290 Output Total 3050 / 3050 50 / 50 Balance -2950 / -2950 240 / 240 Weight 140.7 kg Intake: IV 100 / 100 50 / 50 Diflucan 100 mg Premix Bag 50 50 / 50 ML @ 50 mls/hr IV.SIG Q24H ANA Rx#:[id number] Rocephin Inj 1,000 MG In NS Inj 100 / 100 100 ML @ 200 mls/hr IV.SIG Q24H ANA Rx#:[id number] Oral 240 / 240 Output: Hemodialysis Amount 3000 / 3000 Urine Amount (Catheter) 50 / 50 50 / 50 Indwelling Urethral Catheter 50 / 50 50 / 50 Other: Date of Last Bowel Movement 04/05/17 # Incontinent Bowel Movements 1 Narrative: GENERAL: alert, no acute distress. oriented x 3,. speeech clear SKIN: Warm and dry. HEAD: Normocephalic. EYES: No scleral icterus. No injection or drainage. NECK: Supple, trachea midline. No JVD or lymphadenopathy. VAS cath in place right CARDIOVASCULAR: sinus on exam, no rub RESPIRATORY: Breath sounds diminished at base . GASTROINTESTINAL: Abdomen soft, non-tender, + bowel sounds EXTREMITIES: Diminished pulses NEUROLOGICAL: Awake, alert, and oriented x 3. Non-focal. - Urinary Catheter Management Indwelling Urethral Catheter Cath placed during this visit: yes, but has since been removed by the nurse Urethral indwelling: Yes Reason for continuing: Chronic Urinary Retention Insertion date: 03/30/17 Insertion time: 16:00 Removal date: 03/30/18 Removal time: 15:30 Assessment and Plan - Assessment (1) Acute renal failure Code(s): N17.9 - Acute kidney failure, unspecified Status: Acute (2) Chronic kidney disease Code(s): N18.9 - Chronic kidney disease, unspecified Status: Acute (3) Shock Code(s): R57.9 - Shock, unspecified Status: Acute (4) BMI 50.0-59.9, adult Code(s): Z68.43 - Body mass index (BMI) 50-59.9, adult Status: Chronic (5) Diabetes mellitus Code(s): E11.9 - Type 2 diabetes mellitus without complications Status: Chronic Qualifiers: Diabetes mellitus type: type 2 Diabetes mellitus watermaster insulin use: with senior living use Diabetes mellitus complication status: with kidney complications Diabetes mellitus complication detail: with other kidney complication Qualified Code(s): E11.29 - Type 2 diabetes mellitus with other diabetic kidney complication; Z79.4 - [facility] (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 - Plan Patient has progressive renal failure congestive heart failure, atrial fibrillation/flutter Vas-Cath was reinserted Hemodialysis started Patient had hemodialysis started last week He had HD yesterday continue with Tuesday, and Tuesday schedule Chest x-ray showed pleural effusions Repeat echocardiogram pericardial effusion seen as well as pleural effusions there is no cardiac tamponade Pul HTN pos Continue to monitor his progress on Coumadin okay to discharge to long-term rehab [facility] Procedures - Arterial Line Size (Gauge): 20
[2018-04-05] MEDS: QUEtiapine 25 MG Tablet PO SCH (20:57)
--- NOTE | 2018-04-05 23:46 | P.PN ---
Subjective Interval history: ALERT NAD ON O2 NC Physical Exam Vital signs: Vital Signs 04/05/18 00:00 04/05/18 01:00 04/05/18 04:32 Temperature 97.3 F L Pulse Rate 63 Respiratory Rate 20 Blood Pressure 137/63 Pulse Oximetry 98 98 98 04/05/18 08:00 04/05/18 09:03 04/05/18 12:00 Temperature 97.9 F 97.9 F Pulse Rate 67 66 Respiratory Rate 17 20 16 Blood Pressure 159/70 H 142/64 H Pulse Oximetry 99 98 04/05/18 16:00 04/05/18 17:09 04/05/18 20:00 Temperature 97.7 F Pulse Rate 66 Respiratory Rate 16 Blood Pressure 137/61 Pulse Oximetry 98 98 96 04/05/18 20:01 Temperature Pulse Rate Respiratory Rate Blood Pressure Pulse Oximetry 99 Intake & Output 04/05/18 04/05/18 04/06/18 06:59 18:59 06:59 Intake Total 290 / 290 150 / 150 Output Total 50 / 50 Balance 240 / 240 150 / 150 Weight 140.7 kg Intake: IV 50 / 50 150 / 150 Diflucan 100 mg Premix Bag 50 50 / 50 50 / 50 ML @ 50 mls/hr IV.SIG Q24H ANA Rx#:[id number] Rocephin Inj 1,000 MG In NS Inj 100 / 100 100 ML @ 200 mls/hr IV.SIG Q24H ANA Rx#:[id number] Oral 240 / 240 Output: Urine Amount (Catheter) 50 / 50 Indwelling Urethral Catheter 50 / 50 Other: Date of Last Bowel Movement 04/05/17 # Incontinent Bowel Movements 1 Narrative: GENERAL: alert, no acute distress. oriented x 3,. speeech clear SKIN: Warm and dry. HEAD: Normocephalic. EYES: No scleral icterus. No injection or drainage. NECK: Supple, trachea midline. No JVD or lymphadenopathy. VAS cath in place right CARDIOVASCULAR: sinus on exam, no rub RESPIRATORY: Breath sounds diminished at base . GASTROINTESTINAL: Abdomen soft, non-tender, + bowel sounds EXTREMITIES: Diminished pulses NEUROLOGICAL: Awake, alert, and oriented x 3. Non-focal. - Urinary Catheter Management Indwelling Urethral Catheter Cath placed during this visit: yes, but has since been removed by the nurse Urethral indwelling: Yes Reason for continuing: Chronic Urinary Retention Insertion date: 03/30/18 Insertion time: 16:00 Removal date: 03/30/18 Removal time: 15:30 Results - Labs CBC & Chem 7: 04/04/18 09:10 04/04/18 09:10 Laboratory Results - last 24 hr 04/05/18 05:48 PT 20.4 H INR 2.0 Assessment and Plan - Plan RESPIRATORY FAILURE RENAL FAILURE ON DIALYSIS MIRTA/CSA PLAN O2 NEEDED BIPAP/SLEEP increase activity Procedures - Arterial Line Size (Gauge): 20
[2018-04-06] MEDS: Levothyroxine 50 MCG Tablet PO SCH (05:48)
[2018-04-06] MEDS: Sod Chloride 0.9% Inj 1,000 ML IV.CONT SCH (05:54)
[2018-04-06] MEDS: Gabapentin 100 MG Capsule PO SCH (08:38)
[2018-04-06] MEDS: Metoprolol Tartrate 25 MG Tablet PO SCH (08:38)
[2018-04-06] MEDS: Amiodarone 200 MG Tablet PO SCH (08:38)
[2018-04-06] MEDS: Senna/Docusate Sodium 8.6/50 MG Tablet PO SCH (08:38)
[2018-04-06] MEDS: Lactobacillus Acidophilus/L. Spores Tablet PO SCH (08:38)
[2018-04-06] MEDS: Ascorbic Acid 500 MG Tablet PO SCH (08:38)
[2018-04-06 09:17] VITALS: BP 125/58; PULSE 65; RESP 16; TEMP 97.3; O2SAT 99
[2018-04-06] MEDS: Nystatin 100,000 UNITS/GM Powder 15 GM Bottle TOPICAL SCH (09:54)
--- NOTE | 2018-04-06 11:30 | P.PNNP ---
Subjective Interval history: seen during hemodialysis Physical Exam Vital signs: Vital Signs 04/05/18 12:00 04/05/18 16:00 04/05/18 17:09 Temperature 97.9 F 97.7 F Pulse Rate 66 66 Respiratory Rate 16 16 Blood Pressure 142/64 H 137/61 Pulse Oximetry 98 98 98 04/05/18 20:00 04/05/18 20:01 04/06/18 00:00 Temperature 97.8 F 97.9 F Pulse Rate 66 64 Respiratory Rate 20 18 Blood Pressure 127/60 136/62 Pulse Oximetry 97 99 98 04/06/18 08:00 Temperature 97.3 F L Pulse Rate 65 Respiratory Rate 16 Blood Pressure 125/58 L Pulse Oximetry 99 Intake & Output 04/05/18 04/06/18 04/06/18 18:59 06:59 18:59 Intake Total 390 / 390 Output Total 100 / 100 Balance 290 / 290 Weight 140.5 kg Intake: IV 150 / 150 Diflucan 100 mg Premix Bag 50 50 / 50 ML @ 50 mls/hr IV.SIG Q24H ANA Rx#:[id number] Rocephin Inj 1,000 MG In NS Inj 100 / 100 100 ML @ 200 mls/hr IV.SIG Q24H ANA Rx#:[id number] Oral 240 / 240 Output: Urine 100 / 100 Other: Date of Last Bowel Movement 04/05/17 Narrative: GENERAL: alert, no acute distress. oriented x 3,. speeech clear SKIN: Warm and dry. HEAD: Normocephalic. EYES: No scleral icterus. No injection or drainage. NECK: Supple, trachea midline. No JVD or lymphadenopathy. VAS cath in place right CARDIOVASCULAR: sinus on exam, no rub RESPIRATORY: Breath sounds diminished at base . GASTROINTESTINAL: Abdomen soft, non-tender, + bowel sounds EXTREMITIES: Diminished pulses NEUROLOGICAL: Awake, alert, and oriented x 3. Non-focal. - Urinary Catheter Management Indwelling Urethral Catheter Cath placed during this visit: yes, but has since been removed by the nurse Urethral indwelling: Yes Reason for continuing: Chronic Urinary Retention Insertion date: 03/30/18 Insertion time: 16:00 Removal date: 03/30/18 Removal time: 15:30 Assessment and Plan - Assessment (1) Acute renal failure Code(s): N17.9 - Acute kidney failure, unspecified Status: Acute (2) Chronic kidney disease Code(s): N18.9 - Chronic kidney disease, unspecified Status: Acute (3) Shock Code(s): R57.9 - Shock, unspecified Status: Acute (4) BMI 50.0-59.9, adult Code(s): Z68.43 - Body mass index (BMI) 50-59.9, adult Status: Chronic (5) Diabetes mellitus Code(s): E11.9 - Type 2 diabetes mellitus without complications Status: Chronic Qualifiers: Diabetes mellitus type: type 2 Diabetes mellitus ferry terminal agent insulin use: with intermediate use Diabetes mellitus complication status: with kidney complications Diabetes mellitus complication detail: with other kidney complication Qualified Code(s): E11.29 - Type 2 diabetes mellitus with other diabetic kidney complication; Z79.4 - termination clerk (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 - Plan Patient has progressive renal failure congestive heart failure, atrial fibrillation/flutter Vas-Cath was reinserted Hemodialysis started Patient had hemodialysis started last week He is seen during hemodialysis UF 3 L tolerating it well ontinue with with Tuesday, and Tuesday schedule Chest x-ray showed pleural effusions Repeat echocardiogram pericardial effusion seen as well as pleural effusions there is no cardiac tamponade Pul HTN pos Continue to monitor his progress on Coumadin okay to discharge to long-term rehab he may need to select hospital Procedures - Arterial Line Size (Gauge): 20
--- NOTE | 2018-04-06 11:48 | P.DS ---
DS: Providers Date of admission: 02/26/18 12:16 Primary care physician: Liang Esparza MD Consults: 04/03/18 16:01 HUB Only Consult Order Routine Consulting Provider: [facility] 02/26/18 12:05 Consult to Nephrology Stat Consulting Provider: Raeann Leal For STAT consult, spoke directly to:: Mel Does the patient have a Employee Development Director who follows them?: No Preferred Nephrology Washery Boss:: Raeann Leal Reason for Consultation: Hyperkalemia PIERRE. Notified:: Service Spoke with:: LEONORA Date Notified:: 02/26/18 Time Notified:: 12:04 Ordering Provider: GRACIELA 03/01/18 07:35 Consult to Neurology Routine Consulting Provider: Abram Boles Reason for Consultation: Acute encephalopathy. Likely medication induced due to to midazolam. Patient also has severe cervical canal stenosis but neurologically appears intact. Assist with management. Family request Notified:: Service Spoke with:: Kodak Date Notified:: 03/01/18 Time Notified:: 07:44 Ordering Provider: PRECIOUS 03/01/18 07:36 Consult to Pulmonology Routine Consulting Provider: Joao Shepherd Preferred Washery Boss:: Joao Shepherd Patient known to:: Joao Shepherd Reason for Consultation: Patient with acute respiratory failure severe morbid obesity/obstructive sleep apnea. Assist with vent wean. Notified:: Service Spoke with:: Kodak Date Notified:: 03/01/18 Time Notified:: 07:43 Ordering Provider: PRECIOUS 03/04/18 10:01 Consult to Hospitalist Routine Consulting Provider: Mel Morales Reason for Consultation: Irion of care in a.m. 03/05. Admission with encephalopathy, acute hyperkalemia with renal failure. Followed by pulmonology and nephrology. Notified:: Service Spoke with:: juan ramon Date Notified:: 03/04/18 Time Notified:: 10:12 Comments:: waiting strand and binder controller back/ra Ordering Provider: PRECIOUS 03/08/18 12:24 Consult to Cardiology Routine Consulting Provider: Abram Booth Does the patient have a Automatic Maintainer who follows them?: Yes Preferred Mottler Operator:: Abram Booth Reason for Consultation: chf with preserved ef , known to Dr Booth Notified:: Service Spoke with:: Nallely Date Notified:: 03/08/18 Time Notified:: 12:27 Comments:: Ordering Provider: OVIDIO 03/09/18 15:22 Consult to Pulmonology Routine Consulting Provider: Joao Shepherd Reason for Consultation: acute respiratory failure requiring bipap , MIRTA Notified:: Office Spoke with:: JOSE Date Notified:: 03/09/18 Time Notified:: 15:30 Ordering Provider: OVIDIO 03/10/18 07:41 Consult to Psychiatry Routine Consulting Provider: Issac Tavarez Reason for Consultation: severe depression Spoke with:: kristopher Date Notified:: 03/10/18 Time Notified:: 08:14 Ordering Provider: OVIDIO 03/13/18 09:55 HUB Only Consult Order Routine Consulting Provider: [facility] Anticipated date of discharge: 04/06/18 Brief History from admission: This is a 72-year-old male. Admission 02/26/2018. Past medical includes morbid obesity, depression, dementia, coronary artery disease, hypertension, hyperlipidemia, diabetes mellitus, atrial fibrillation currently rate controlled, hypothyroidism, peripheral neuropathy, chronic kidney disease stage III-IV, chronic opiate use and chronic anticoagulation with rivaroxaban. Patient is from the [facility]. He was originally sent to [facility] emergency department the chief diagnosis of acute altered mental status since yesterday. EMS was called and found the patient have initial heart rate in the 30s with a blood pressure 120/60 manually, they give a half a milligram of atropine which brought his heart rate into the 40s and his blood pressure 96/72. His initial GCS on scene was 12, according to EMS the assisted reported that normally he is conversant and able to answer questions appropriately. Upon arrival, a central line and arterial line replaced in the right femoral vein/artery is appropriate and received 1 L normal saline. Currently on norepinephrine drip for mean arterial pressure greater than 65. Patient had normal white blood cell count. Potassium 7 with peaked T waves. Patient received D50, insulin and calcium chloride. Nephrology was consulted and recommended hemodialysis. Patient has scans of the brain, chest, abdomen pelvis pain-free chest x-ray revealed possible right pleural effusion versus infiltrate with aspiration. Patient still quite confused however is arousable and will follow commands. DS: Diagnosis Discharge Diagnosis (1) Acute renal failure superimposed on chronic kidney disease: Status: Acute Diagnosis: Principal (2) Acute hemodialysis encounter: Status: Acute Diagnosis: Principal (3) BMI 50.0-59.9, adult: Status: Chronic Diagnosis: Secondary (4) Diabetes mellitus: Status: Chronic Diagnosis: Secondary (5) Atrial fibrillation: Status: Chronic Diagnosis: Secondary (6) Atrial flutter: Status: Acute Diagnosis: Secondary DS: Summary 72-year-old male with a diagnosis of morbid obesity, depression, dementia, coronary artery disease, hypertension, dyslipidemia, diabetes, atrial fibrillation, hypothyroidism, peripheral neuropathy, chronic kidney disease stage IV, patient has a history of chronic opiate use. [facility] where he was found to have altered mental status, low blood pressure and a heart rate in the 30s and was given atropine. Patient also had a low systolic blood pressure and needed IV pressors. Patient's chest x-ray showed pleural effusions. An echocardiogram showed a pericardial effusion as well as pleural effusions. No evidence of cardiac tamponade was noted. He underwent a right sided thoracentesis with 1500 ml of fluid removal. Patient was also in acute kidney injury, with elevated potassium and peaked T waves, which did not improve with treatment and he needed hemodialysis. Patient's serum creatinine continued to trend up and Nephrology initiated hemodialysis on 03/30/18 with fluid removal during each session. His Coumadin was held for a permacath placement that was completed on 04/04/18. Patient was started on a regular dialysis schedule of Tue , and Tuesday. His Coumadin was resumed. He was deemed stable for discharge to senior living acute care from a nephrology standpoint. Patient was also evaluated by Cardiology during his stay for chronic a-fib/a- flutter and congestive heart failure with preserved EF. Patient was not deemed to be a candidate for cardioversion due to chronic a-fib. Patient was advised to follow up with his Automatic Maintainer for continued monitoring of his INR and Coumadin dosing. Pulmonary was consulted and followed along during patient's hospitalization. Patient wore BIPAP at night for his history of obstructive sleep apnea. His respiratory status remained stable status post extubation in ICU. On day of discharge patient was hemodynamically stable. He reported feeling tired and weak but voiced no other questions or concerns. His mental status was back at baseline. and [facility] and Case management assisted with arranging placement. Time Spent with Patient Total time spent providing and/or coordinating discharge services: Greater than 30 minutes Status at Discharge Functional status at discharge: bed bound Overall status at discharge: patient is not back to baseline Quality: VTE Deep Vein Thrombosis/Pulmonary Embolism Present on Admission: No Exam Narrative Exam Narrative: GENERAL: well developed, well nourished, no acute distress SKIN: Warm and dry. HEAD: Normocephalic, atraumatic EYES: No scleral icterus. No injection or drainage. NECK: Supple, trachea midline. No JVD or lymphadenopathy. CARDIOVASCULAR: irregularly irregular rate and rhythm without murmurs, gallops, or rubs. RESPIRATORY: Breath sounds equal bilaterally. No accessory muscle use. GASTROINTESTINAL: Abdomen soft, non-tender, nondistended. MUSCULOSKELETAL: No cyanosis. Right upper chest wall permacath. Results Impressions ITS Impressions Chest CT 02/26/18 00:00 CONCLUSION: 1. Bilateral pleural effusions being moderate on the right and mild on the left. 2. Suspected right lower lobe atelectasis likely from the effusion versus consolidation. 3. Milder consolidation or atelectasis at the left base. 4. Compression deformity of the T4 vertebral body. 5. Edema in the soft tissues being asymmetric and worse on the right. Venous Doppler Study 02/26/18 00:00 CONCLUSION: No venous thrombosis is identified within either lower extremity. Head CT 02/26/18 11:52 CONCLUSION: 1. No acute abnormality. 2. Mild cortical atrophy. . Thoracentesis CT 02/27/18 00:00 CONCLUSION: 1. Uncomplicated CT-guided thoracentesis. Cervical Spine MRI 02/28/18 14:24 CONCLUSION: 1. Multilevel protrusions causing severe canal stenosis at C2-3. 2. Mild canal stenosis at C3-4 and C7-T1. 3. Moderate canal stenosis at C4-5, C5-6 and 6 7 levels. Head MRI 02/28/18 14:24 CONCLUSION: 1. No acute hemorrhage, mass or evidence of infarction. 2. Atrophy and chronic small vessel ischemic change. 3. Mucosal thickening and small air-fluid levels in the sphenoid sinuses and ethmoidal air cells which could indicate acute sinusitis. Abdomen/Pelvis CT 03/27/18 00:00 CONCLUSION: 1. Moderate/large bilateral pleural effusions. 2. Small pericardial effusion. 3. No acute inflammatory process. 4. Minimal ascites. 5. Status post cholecystectomy. Chest X-Ray 03/29/18 00:00 CONCLUSION: No significant change. The findings remain consistent with congestive heart failure. Catheter Placement 04/04/18 08:00 CONCLUSION: 1. Uncomplicated Dialysis catheter placement as above. Discharge Plan Discharge Disposition Patient Disposition: [facility] Discharge Condition Condition: Stable Discharge Order Discharge Orders: Discharge Order (Routine); Ordered 04/06/18 Ordered By: José Luis Uriostegui Discharge Details Anticipated Discharge Date: 04/06/18 Discharge Comment: Please follow up with your primary care provider post discharge from [facility] for continued PT/INR monitoring and Coumadin dosing. Physicians Team ED Provider: Obinna Last Primary Care Provider: Liang Esparza Attending Provider: Brenda Brown Other Providers: Raeann Leal ; Abram Boles ; Joao Shepherd ; Abram Booth ; Issac Tavarez ; [facility] ; Braulio Bennett ; [facility] Rxs /Orders / Referrals /Forms Prescriptions: New warfarin [Coumadin] 1 mg Tablet 1 mg PO DAILY@1600 Qty: 60 RF: 0 duloxetine 30 mg Capsule,Delayed Release(Dr/Ec) 30 mg PO DAILY Qty: 30 RF: 0 quetiapine 25 mg Tablet 25 mg PO HS Qty: 30 RF: 0 hydrocodone-acetaminophen 5-325 mg Tablet 1 tab PO Q6H PRN (Reason: Pain 1 through 5) Qty: 8 RF: 0 gabapentin 100 mg Capsule 200 mg PO BID Qty: 30 RF: 0 pantoprazole 40 mg Tablet,Delayed Release (Dr/Ec) 40 mg PO DAILY Qty: 30 RF: 0 nystatin [Nystop] 100,000 unit/gram Powder 1 applicatio Topical BID Qty: 15 RF: 0 memantine [Namenda] 10 mg Tablet 10 mg PO QPM Qty: 30 RF: 0 Continue multivitamin [Tab-A-Lucille] Tablet 1 tab PO DAILY RF: 0 atorvastatin 20 mg Tablet 20 mg PO HS RF: 0 amiodarone 200 mg Tablet 200 mg PO DAILY RF: 0 zinc sulfate 220 mg Tablet 220 mg PO DAILY RF: 0 ascorbic acid (vitamin C) [Vitamin C] 500 mg Tablet 500 mg PO BID RF: 0 levothyroxine 50 mcg Tablet 50 mcg PO DAILY RF: 0 insulin lispro [Humalog U-100 Insulin] 100 unit/mL Solution 2 - 10 unit subcut ACHS RF: 0 Lactobacillus acidophilus [Acidophilus] Tablet,Chewable 1 tab PO BID RF: 0 alfuzosin 10 mg Tablet Extended Release 24 Hr 10 mg PO DAILY RF: 0 metoprolol tartrate 25 mg Tablet 25 mg PO BID RF: 0 amino acids-protein hydrolys [Pro-Stat Sugar Free] 15-100 gram-kcal/30 mL Liquid 30 ml PO DAILY RF: 0 ondansetron HCl [Zofran] 4 mg Tablet 4 mg PO Q8H PRN (Reason: Nausea And Vomiting) RF: 0 sennosides-docusate sodium 8.6-50 mg Tablet 2 tab PO BID PRN (Reason: Constipation) RF: 0 bisacodyl [Dulcolax (bisacodyl)] 10 mg Suppository 10 mg NV DAILY PRN (Reason: Constipation) RF: 0 sodium phosphates [Fleet Enema] 19-7 gram/118 mL Enema 118 ml NV DIRECTED PRN (Reason: If no results from dulcolax) RF: 0 Discontinued gabapentin 600 mg Tablet 600 mg PO TID RF: 0 amlodipine 5 mg Tablet 5 mg PO DAILY RF: 0 morphine [MS Contin] 15 mg Tablet Extended Release 15 mg PO Q12H RF: 0 furosemide [Lasix] 20 mg Tablet 20 mg PO BID RF: 0 olmesartan 20 mg Tablet 20 mg PO DAILY RF: 0 memantine [Namenda] 5 mg Tablet 5 mg PO QPM RF: 0 duloxetine [Cymbalta] 20 mg Capsule,Delayed Release(Dr/Ec) 20 mg PO DAILY RF: 0 rivaroxaban [Xarelto] 20 mg Tablet 20 mg PO QPM RF: 0 magnesium hydroxide [Milk of Magnesia] 400 mg/5 mL Suspension 30 ml PO DIRECTED PRN (Reason: If no BM in 3 days) RF: 0 ondansetron [Zofran ODT] 4 mg Tablet,Disintegrating 4 mg PO Q6H PRN (Reason: Nausea And Vomiting) RF: 0 Referrals: Liang Esparza MD [Primary Care Provider] - See Instructions (Please follow up within 2-3 days post discharge from [facility]. ) Raeann Leal MD [Physician] - See Instructions (Please follow up post discharge from [facility] on your regularly scheduled dialysis days Tue, Ilana, Sat) Joao Shepherd MD [Physician] - See Instructions (Please follow up within 2 weeks of being discharged from [facility]. ) Discharge Instructions Patient Printed Instructions: Warfarin (By mouth), Dialysis Diet (GEN), Perma- cath Placement (DC), Hemodialysis (DC) Additional Instructions: Your Health Problems: Goals to Promote Your Health: * To prevent worsening of your condition * To maintain your health at the optimal level Directions to Meet Your Goals: * Take your medications as prescribed * Follow your dietary instruction * Follow activity as directed * Keep your appointments as scheduled * Take your immunizations and boosters as scheduled * If your symptoms worsen call your PCP * If no PCP go to Urgent Care or Emergency Room Smoking is dangerous to your health. Avoid second hand smoke. You may reach the 24-hour crisis hotline for domestic abuse at . Status ED Status: Left Department Discharge Information Discharge Date/Time: 04/06/18 15:31
[2018-04-06] MEDS: Heparin 10,000 UNITS/10 ML Vial (for IV use) OTHER PRN (12:36)
== END 2018-04-06 15:31 | DRG 870 ==
LOC: NEPC 10:36 → NEDA 12:16 → HIMC 13:55 → N07 03-17 13:03
PROVIDERS: ADMIT Internal Medicine; ATTEND Internal Medicine
DX: E87.3 Alkalosis; E11.42 Type 2 diabetes mellitus with diabetic polyneuropathy; N39.0 Urinary tract infection, site not specified; R74.0 Nonspecific elevation of levels of transaminase and lactic acid dehydrogenase [LDH]; R65.21 Severe sepsis with septic shock; Z79.4 Long term (current) use of insulin; I13.0 Hypertensive heart and chronic kidney disease with heart failure and stage 1 through stage 4 chronic kidney disease, or unspecified chronic kidney disease; N18.4 Chronic kidney disease, stage 4 (severe); E87.1 Hypo-osmolality and hyponatremia; A41.9 Sepsis, unspecified organism; M48.04 Spinal stenosis, thoracic region; R79.1 Abnormal coagulation profile; J96.00 Acute respiratory failure, unspecified whether with hypoxia or hypercapnia; F41.9 Anxiety disorder, unspecified; F32.9 Major depressive disorder, single episode, unspecified; M48.02 Spinal stenosis, cervical region; I25.10 Atherosclerotic heart disease of native coronary artery without angina pectoris; I48.0 Paroxysmal atrial fibrillation; L97.419 Non-pressure chronic ulcer of right heel and midfoot with unspecified severity; N40.0 Benign prostatic hyperplasia without lower urinary tract symptoms; J90 Pleural effusion, not elsewhere classified; E66.01 Morbid (severe) obesity due to excess calories; Z68.43 Body mass index [BMI] 50.0-59.9, adult; N17.9 Acute kidney failure, unspecified; R00.1 Bradycardia, unspecified; E88.09 Other disorders of plasma-protein metabolism, not elsewhere classified; I27.20 Pulmonary hypertension, unspecified; E11.22 Type 2 diabetes mellitus with diabetic chronic kidney disease; E11.621 Type 2 diabetes mellitus with foot ulcer; J98.11 Atelectasis; E78.5 Hyperlipidemia, unspecified; E87.6 Hypokalemia; F03.90 Unspecified dementia, unspecified severity, without behavioral disturbance, psychotic disturbance, mood disturbance, and anxiety; Z79.891 Long term (current) use of opiate analgesic; I31.3 Pericardial effusion (noninflammatory); D64.9 Anemia, unspecified; I67.9 Cerebrovascular disease, unspecified; G93.41 Metabolic encephalopathy; G89.29 Other chronic pain; E03.9 Hypothyroidism, unspecified; E83.39 Other disorders of phosphorus metabolism; E87.5 Hyperkalemia; I48.92 Unspecified atrial flutter; Z79.01 Long term (current) use of anticoagulants; Z22.1 Carrier of other intestinal infectious diseases; G47.33 Obstructive sleep apnea (adult) (pediatric); L97.429 Non-pressure chronic ulcer of left heel and midfoot with unspecified severity; R16.0 Hepatomegaly, not elsewhere classified; I50.32 Chronic diastolic (congestive) heart failure; Z86.73 Personal history of transient ischemic attack (TIA), and cerebral infarction without residual deficits
CPT/HCPCS: 31500; 32555; 36556; 36558; 36569; 36600; 36620; 70450; 70551; 71010; 71045; 71250; 72141; 74176; 75998; 76937; 77001; 80048; 80053; 80069; 80074; 80202; 81001; 82042; 82140; 82272; 82550; 82570; 82607; 82803; 82805; 82948; 82962; 83520; 83605; 83615; 83690; 83735; 83880; 83918; 83921; 83986; 84100; 84132; 84155; 84157; 84300; 84315; 84425; 84443; 84484; 85025; 85027; 85384; 85610; 85730; 87040; 87070; 87086; 87205; 87641; 88112; 88305; 89051; 90765; 90774; 90775; 90780; 90784; 90935; 92526; 92610; 93005; 93306; 93970; 94002; 94003; 94150; 94640; 94650; 94656; 94657; 94664; 94665; 94667; 94668; 95819; 96125; 96365; 96374; 96375; 97110; 97162; 97167; 97530; 97535; 99145; 99152; 99153; 99291; C1729; C1750; C1752; C1769; C8950; C8952; C9113; G0195; J0360; J0461; J0610; J0690; J0696; J0886; J1265; J1450; J1580; J1610; J1644; J1815; J1940; J2250; J2270; J2405; J2543; J3010; J3370; J3475; J7030; J7040; J7050; P9047; Q4055; Q4081